=== PATIENT | male | born 1950 | race Caucasian/White ===

== ENCOUNTER 2016-08-28 13:56 | Outpatient (CLI) | payer MEDICARE | END 2016-08-28 13:57 | disposition home or self-care (01) | DX: Z79.01 Long term (current) use of anticoagulants (principal) ==

== ENCOUNTER 2016-09-06 08:00 | Outpatient (CLI) | payer MEDICARE | END 2016-09-06 08:01 | disposition home or self-care (01) | DX: Z79.01 Long term (current) use of anticoagulants (principal) ==

== ENCOUNTER 2016-09-13 13:46 | Outpatient (CLI) | payer MEDICARE | END 2016-09-13 13:47 | disposition home or self-care (01) | DX: Z79.01 Long term (current) use of anticoagulants (principal) ==

== ENCOUNTER 2016-10-11 13:47 | Outpatient (CLI) | payer MEDICARE | END 2016-10-11 13:48 | disposition home or self-care (01) | DX: Z79.01 Long term (current) use of anticoagulants (principal) ==

== ENCOUNTER 2016-10-22 14:11 | Emergency (ER) | payer OTHER, MEDICARE | END 2016-10-22 16:50 | disposition home or self-care (01) | DX: R42 Dizziness and giddiness (principal); N28.9 Disorder of kidney and ureter, unspecified; I10 Essential (primary) hypertension; E78.5 Hyperlipidemia, unspecified; E10.9 Type 1 diabetes mellitus without complications; Z79.4 Long term (current) use of insulin; I48.91 Unspecified atrial fibrillation; Z79.01 Long term (current) use of anticoagulants; G20 Parkinson's disease; Z86.73 Personal history of transient ischemic attack (TIA), and cerebral infarction without residual deficits ==

== ENCOUNTER 2016-11-07 13:34 | Outpatient (CLI) | payer MEDICARE, OTHER | END 2016-11-07 13:35 | disposition home or self-care (01) | DX: Z79.01 Long term (current) use of anticoagulants (principal) ==

== ENCOUNTER 2016-11-16 13:35 | Outpatient (CLI) | payer MEDICARE | END 2016-11-16 23:59 | DX: Z79.01 Long term (current) use of anticoagulants (principal) ==

== ENCOUNTER 2016-11-23 13:39 | Outpatient (CLI) | payer MEDICARE | END 2016-11-23 13:40 | disposition home or self-care (01) | DX: Z79.01 Long term (current) use of anticoagulants (principal) ==

== ENCOUNTER 2016-12-07 08:00 | Outpatient (CLI) | payer MEDICARE | END 2016-12-07 08:01 | disposition home or self-care (01) | LOC: LAB.N 08:00 | PROVIDERS: ATTEND Family Medicine | DX: Z79.01 Long term (current) use of anticoagulants (principal) | CPT/HCPCS: 85610 ==

== ENCOUNTER 2016-12-21 13:32 | Outpatient (CLI) | payer MEDICARE | END 2016-12-21 13:33 | disposition home or self-care (01) | LOC: LAB.N 13:32 | PROVIDERS: ATTEND Family Medicine | DX: Z79.01 Long term (current) use of anticoagulants (principal) | CPT/HCPCS: 85610 ==

== ENCOUNTER 2016-12-28 13:29 | Outpatient (CLI) | payer MEDICARE | END 2016-12-28 13:30 | disposition home or self-care (01) | DX: Z79.01 Long term (current) use of anticoagulants (principal) ==

== ENCOUNTER 2017-01-11 13:29 | Outpatient (CLI) | payer MEDICARE | END 2017-01-11 13:30 | disposition home or self-care (01) | LOC: LAB.N 13:29 | PROVIDERS: ATTEND Family Medicine | DX: Z79.01 Long term (current) use of anticoagulants (principal) | CPT/HCPCS: 85610 ==

== ENCOUNTER 2017-01-18 13:24 | Outpatient (CLI) | payer MEDICARE | END 2017-01-18 13:25 | disposition home or self-care (01) | LOC: LAB.N 13:24 | PROVIDERS: ATTEND Family Medicine | DX: Z79.01 Long term (current) use of anticoagulants (principal) | CPT/HCPCS: 85610 ==

== ENCOUNTER 2017-02-08 13:31 | Outpatient (CLI) | payer MEDICARE | END 2017-02-08 13:32 | disposition home or self-care (01) | LOC: LAB.N 13:31 | PROVIDERS: ATTEND Family Medicine | DX: Z79.01 Long term (current) use of anticoagulants (principal) | CPT/HCPCS: 85610 ==

== ENCOUNTER 2017-03-09 15:45 | Emergency (ER) | payer MEDICARE ==
[2017-03-09 16:42] LABS: BASOPHILS # (AUTO) 0.1 10^3/uL (0.0-0.1); BASOPHILS % (AUTO) 0.4 %; EOSINOPHILS % (AUTO) 0.1 %; HCT - HEMATOCRIT 44.6 % (42.0-52.0); HGB - HEMOGLOBIN 14.7 g/dL (14.0-18.0); LYMPHOCYTES # (AUTO) 1.1 10^3/uL (1.5-3.5); LYMPHOCYTES % (AUTO) 4.7 %; MEAN CORPUSCULAR HEMOGLOBIN 31.6 pg (27.0-31.0); MEAN CORPUSCULAR HGB CONC 32.9 g/dL (32.0-36.0); MEAN CORPUSCULAR VOLUME 96.1 fL (80.0-94.0); MONOCYTES % (AUTO) 8.6 %; NEUTROPHILS # (AUTO) 20.4 10^3/uL (1.5-6.6); NEUTROPHILS % (AUTO) 86.2 %; RED BLOOD COUNT 4.64 10^6/uL (4.70-6.10); UNCORRECTED WHITE BLOOD COUNT 23.7 x10^3/uL; WHITE BLOOD COUNT 23.7 x10^3/uL (4.8-10.8)
[2017-03-09 16:53] LABS: BILIRUBIN,TOTAL 1.2 mg/dL (0.2-1.0); CALCIUM 8.8 mg/dL (8.5-10.3); CREATININE 1.3 mg/dL (0.6-1.2); POTASSIUM 4.2 mmol/L (3.5-5.0)
[2017-03-09 17:39] LABS: PLATELET ESTIMATE, MANUAL NORMAL (130-450,000) (NORMAL); PLATELET MORPHOLOGY NORMAL APPEARANCE (NORMAL); WBC MORPHOLOGY (MULTIPLE) NORMAL APPEARANCE (NORMAL)
[2017-03-09] MEDS ORDERED: SODIUM CHLORIDE 0.9% 1,000 ML IV ONE (18:09)
--- NOTE | 2017-03-09 18:11 | ED Physician Documentation ---
PD HPI ABD PAIN - Stated complaint Stated Complaint: BACK PX/N/V - Chief complaint Chief Complaint: Abd Pain - History obtained from History obtained from: Patient - History of Present Illness Timing - onset: How many months ago (2) Timing - duration: Months (2) Timing - details: Gradual onset Pain level max: 6 Pain level now: 6 Quality: Aching, Pain Location: Other (L flank) Improved by: Laying still Worsened by: Moving Associated symptoms: Fever (subjective last night), Nausea, Dysuria, Other ( urinary frequency). No: Vomiting, Hematemesis, Diarrhea, Constipation, Melena, Hematuria Similar symptoms before: Has not had sx before Recently seen: Not recently seen Review of Systems Constitutional: denies: Chills, Myalgias Nose: denies: Rhinorrhea / runny nose, Congestion Throat: denies: Sore throat Cardiac: denies: Chest pain / pressure Respiratory: denies: Cough GI: denies: Hematemesis, Bloody / black stool Skin: denies: Rash Musculoskeletal: denies: Neck pain Neurologic: denies: Headache PD PAST MEDICAL HISTORY - Past Medical History Cardiovascular: Hypertension, Atrial fibrillation Respiratory: Sleep apnea Neuro: None, CVA Endocrine/Autoimmune: Type 1 diabetes GI: GERD : None HEENT: None Psych: None Musculoskeletal: Osteoarthritis, Gout Derm: None - Past Surgical History Past Surgical History: Yes General: Cholecystectomy Ortho: Spine surgery HEENT: Other - Present Medications Home Medications: Ambulatory Orders Medication Instructions Recorded Confirmed Metformin HCl [Glucophage Xr] 1,000 mg PO BID 10/02/13 03/09/17 Omeprazole 20 mg PO BID 10/02/13 03/09/17 Warfarin [Coumadin] 5 mg PO 1400 10/02/13 03/09/17 diltiaZEM CD [Cardizem Cd] 240 mg PO BID 10/02/13 03/09/17 Cholecalciferol (Vitamin D3) 1,000 unit PO BID 10/05/13 03/09/17 [Vitamin D-3] Lisinopril [Zestril] 10 mg PO DAILY 10/05/13 03/09/17 Triamcinolone 0.1% Oint [Kenalog 1 applic TD BID 12/03/15 03/09/17 0.1% Oint] Atorvastatin Calcium 40 mg PO DAILY 01/24/16 03/09/17 Carbidopa/Levodopa [Carbidopa-Levo 25 - 100 tab PO TID 01/24/16 03/09/17 ER 25-100 Tab] Docusate Sodium 250Mg Capsule 250 mg PO TID PRN 01/24/16 03/09/17 [Colace] Hydrocodone/Acetaminophen [Vicodin 1 each PO TID PRN 01/24/16 03/09/17 5-300 mg Tablet] Insulin Glargine,Hum.rec.anlog 30 unit SQ DAILY 01/24/16 03/09/17 [Lantus] Metoprolol Tartrate 12.5 mg PO BID 01/24/16 03/09/17 Meclizine [Antivert] 12.5 mg PO Q6H PRN #10 tablet 10/22/16 03/09/17 Allopurinol 1 tab PO BID 03/09/17 03/09/17 Ciprofloxacin HCl [Cipro] 500 mg PO BID #28 tablet 03/09/17 Fluticasone [Flonase] 1 spray TAWANDA DAILY 03/09/17 03/09/17 Loratadine [Claritin] 10 mg PO DAILY 03/09/17 03/09/17 Senna [Senokot] 2 tab PO DAILY 03/09/17 03/09/17 - Allergies Allergies/Adverse Reactions: Allergies Allergy/AdvReac Type Severity Reaction Status Date / Time No Known Drug Allergies Allergy Verified 03/09/17 18:19 - Social History Does the pt smoke?: No Smoking Status: Never smoker Does the pt drink ETOH?: No Does the pt have substance abuse?: No - Immunizations Immunizations are current?: Yes - POLST Patient has POLST: No PD ED PE NORMAL - Vitals Vital signs reviewed: Yes - General General: Alert and oriented X 3, No acute distress, Other (obese male) - HEENT HEENT: PERRL, Moist mucous membranes - Neck Neck: Supple, no meningeal sign - Cardiac Cardiac: RRR, Strong equal pulses - Respiratory Respiratory: No respiratory distress, Clear bilaterally - Abdomen Abdomen: Soft, Non tender, Non distended - Back Back: No CVA TTP, No spinal TTP - Derm Derm: Warm and dry - Extremities Extremities: No calf tenderness / cord - Neuro Neuro: Alert and oriented X 3 - Psych Psych: Normal mood, Normal affect Results - Vitals Vitals: Vital Signs - 24 hr 03/09/17 03/09/17 03/09/17 16:00 21:51 22:22 Temperature 36.1 C L 37.1 C 37.1 C Heart Rate 95 99 104 H Respiratory 20 16 Rate Blood Pressure 120/79 137/89 H O2 Saturation 98 98 Oxygen O2 Source Room air - Labs Labs: Laboratory Tests 03/09/17 03/09/17 03/09/17 16:36 16:36 16:36 WBC 23.7 H RBC 4.64 L Hgb 14.7 Hct 44.6 MCV 96.1 H MCH 31.6 H MCHC 32.9 RDW 14.0 Plt Count 174 MPV 10.0 Neut # 20.4 H Lymph # 1.1 L [place] # 2.0 H Eos # 0.0 Baso # 0.1 Absolute Nucleated RBC 0.00 Nucleated RBCs 0.0 Manual Slide Review Indicated WBC Morphology NORMAL APPEARANCE Platelet Estimate NORMAL (130-450,000) Platelet Morphology NORMAL APPEARANCE RBC Morph Micro Appear NORMAL APPEARANCE PT 26.3 H INR 2.3 H Sodium 136 Potassium 4.2 Chloride 105 Carbon Dioxide 21 Anion Gap 10.0 BUN 18 Creatinine 1.3 H Estimated GFR (MDRD) 55 L Glucose 178 H POC Whole Bld Glucose Calcium 8.8 Total Bilirubin 1.2 H AST 12 ALT 10 Alkaline Phosphatase 65 Total Protein 7.0 Albumin 3.5 Globulin 3.5 Albumin/Globulin Ratio 1.0 Lipase 13 L Urine Color Urine Clarity Urine pH Ur Specific [place] Urine Protein Urine Glucose (UA) Urine Ketones Urine Occult Blood Urine Nitrite Urine Bilirubin Urine Urobilinogen Ur Leukocyte Esterase Urine RBC Urine WBC Ur Squamous Epith Cells Urine Bacteria Urine Casts Ur Microscopic Review Urine Culture Comments 03/09/17 03/09/17 19:43 21:39 WBC RBC Hgb Hct MCV MCH MCHC RDW Plt Count MPV Neut # Lymph # [place] # Eos # Baso # Absolute Nucleated RBC Nucleated RBCs Manual Slide Review WBC Morphology Platelet Estimate Platelet Morphology RBC Morph Micro Appear PT INR Sodium Potassium Chloride Carbon Dioxide Anion Gap BUN Creatinine Estimated GFR (MDRD) Glucose POC Whole Bld Glucose 157 H Calcium Total Bilirubin AST ALT Alkaline Phosphatase Total Protein Albumin Globulin Albumin/Globulin Ratio Lipase Urine Color DARK YELLOW Urine Clarity CLEAR Urine pH 5.5 Ur Specific [place] >=1.030 H Urine Protein >=300 Urine Glucose (UA) NEGATIVE Urine Ketones TRACE Urine Occult Blood SMALL H Urine Nitrite NEGATIVE Urine Bilirubin MODERATE H Urine Urobilinogen 0.2 (NORMAL) Ur Leukocyte Esterase NEGATIVE Urine RBC 0-5 Urine WBC >25 H Ur Squamous Epith Cells MANY Squamous H Urine Bacteria Moderate H Urine Casts 3-5 WBC Casts Ur Microscopic Review INDICATED Urine Culture Comments NOT INDICATED - Rads (name of study) CT abd/pelvis Radiology: Prelim report reviewed, EMP read contemporaneously, See rad report ( No urinary tract calculi are seen. No hydronephrosis. Enlarged prostate. . Increased density in the bladder, could represent contrast versus blood. The bladder is decompressed. . Otherwise, no acute findings. See above. ) PD MEDICAL DECISION MAKING - ED course Complexity details: reviewed results, re-evaluated patient, considered differential, d/w patient ED course: Patient is a 66-year-old male who presents to the emergency department with what appears to be pyelonephritis. No fevers here, but does have an elevated white blood cell count. Given a dose of IV Rocephin and will place on ciprofloxacin for home. INR is at 2.3. Patient was counseled regarding the black box warnings and side effects of ciprofloxacin including neurological effects and possible tendon rupture. As there are not good alternative medications at this time, will continue to use ciprofloxacin for home. Patient accepts these risks. Patient counseled regarding signs and symptoms for which I believe and urgent re-evaluation would be necessary. Patient with good understanding of and agreement to plan and is comfortable going home at this time This document was made in part using voice recognition software. While efforts are made to proofread this document, sound alike and grammatical errors may occur. Tolerating p.o. without difficulty here. No fever. Departure - Departure Disposition: 01 Home, Self Care Clinical Impression: Pyelonephritis Condition: Good Instructions: ED UTI Pyelonephritis Male Follow-Up: your,doctor in 3 days [Other] Prescriptions: Ciprofloxacin HCl [Cipro] 500 mg PO BID #28 tablet Comments: Return if you worsen. Take all antibiotics until gone. You need to have your INR rechecked within 3 days with your doctor as the antibiotic can effect your warfarin levels. Discharge Date/Time: 03/09/17 22:15
[2017-03-09 20:18] LABS: PH,URINE 5.5 PH (5.0-7.5)
[2017-03-09 20:27] LABS: UA w/ MICROSCOPIC CHARGE YES
[2017-03-09 20:28] LABS: BILIRUBIN,URINE MODERATE (NEGATIVE)
[2017-03-09] MEDS ORDERED: IOPAMIDOL-300 100 ML VIAL IVP ONE (20:35)
[2017-03-09 20:38] LABS: UR CULTURE IF IND NOT INDICATED; WBC,URINE >25 /HPF (0-3)
--- NOTE | 2017-03-09 21:04 | CT Preliminary Report ---
Exam: CT Abdomen/Pelvis W/ IMPRESSION: 1. No urinary tract calculi are seen. No hydronephrosis. 2. Enlarged prostate. 3. Increased density in the bladder, could represent contrast versus blood. The bladder is decompress ed. 4. Otherwise, no acute findings. See above. [facility] SITE ID: [id number]
[2017-03-09] MEDS ORDERED: cefTRIAXone 1 GM VIAL IM STA (21:06)
--- NOTE | 2017-03-09 21:07 | CT Report ---
EXAM: CT ABDOMEN AND PELVIS EXAM DATE: 03/09/2017 08:39 PM. CLINICAL HISTORY: Left flank pain, fever, dysuria. COMPARISONS: CT abdomen and pelvis 04/18/2014. TECHNIQUE: Routine helical CT imaging was performed through the abdomen and pelvis. IV contrast: 100 mL Isovue-300. Enteric contrast: No. Reconstructions: Coronal and sagittal. In accordance with CT protocol optimization, one or more of the following dose reduction techniques w ere utilized for this exam: automated exposure control, adjustment of mA and/or KV based on patient s ize, or use of iterative reconstructive technique. FINDINGS: Lung Bases: No acute findings Liver: Normal. No masses. Gallbladder/Bile Ducts: Status post cholecystectomy. No bile duct dilatation. Spleen: Normal. Pancreas: Normal. Adrenal Glands: Normal. Kidneys: No hydronephrosis. Low density mass upper pole right kidney 1.4 cm, suspect a renal cyst, Ho unsfield units of 10. Exophytic low-density mass seen medially off the upper pole left kidney with Ho unsfield units of 4 most suggestive for a renal cyst, measures 2.1 cm, increased compared to the prio r. A few tiny low densities seen in both kidneys, nonspecific. No renal calculi are seen. No ureteral calculi or hydroureter. Peritoneal Cavity/Bowel: Right side of the abdomen not completely imaged due to artifact caused by th e skin contacting the gantry. The right side of the colon is not completely imaged. Mild colonic dive rticulosis of the right side of the colon and a few diverticula on the left side. No evidence for acu te diverticulitis. No evidence for bowel obstruction. No free fluid or free air. Pelvic Organs: Enlarged prostate measuring 5.4 cm. The bladder is decompressed. There is increased de nsity in the bladder, could represent contrast versus blood. Vasculature: No acute findings. Marked Calcification of the splenic artery. Bones: No acute findings IMPRESSION: 1. No urinary tract calculi are seen. No hydronephrosis. 2. Enlarged prostate. 3. Increased density in the bladder, could represent contrast versus blood. The bladder is decompress ed. 4. Otherwise, no acute findings. See above. [facility] Referring Provider Line: [phone] SITE ID: [id number]
[2017-03-09 21:28] LABS: INR 2.3 (0.8-1.2); PT - PROTHROMBIN TIME 26.3 secs (9.9-12.6)
[2017-03-09] MEDS ORDERED: cefTRIAXone 1 GM VIAL IVP STA (21:38)
[2017-03-09] MEDS ORDERED: cefTRIAXone 1 GM VIAL ONE (21:40)
[2017-03-09 21:51] VITALS: BP 137/89
== END 2017-03-09 22:15 | disposition home or self-care (01) ==
LOC: ED 15:45
DX: N12 Tubulo-interstitial nephritis, not specified as acute or chronic (principal); N40.0 Benign prostatic hyperplasia without lower urinary tract symptoms; I10 Essential (primary) hypertension; I48.91 Unspecified atrial fibrillation; Z79.01 Long term (current) use of anticoagulants; G47.30 Sleep apnea, unspecified; E10.9 Type 1 diabetes mellitus without complications; Z79.4 Long term (current) use of insulin; Z79.84 Long term (current) use of oral hypoglycemic drugs; K21.9 Gastro-esophageal reflux disease without esophagitis; Z86.73 Personal history of transient ischemic attack (TIA), and cerebral infarction without residual deficits
CPT/HCPCS: 36415; 74177; 80053; 81001; 83690; 85025; 85610; 96361; 96374; 99283; 99284; Q9967; 81003; 87086

== ENCOUNTER 2017-03-12 13:42 | Outpatient (CLI) | payer MEDICARE | END 2017-03-12 13:43 | disposition home or self-care (01) | LOC: LAB.N 13:42 | PROVIDERS: ATTEND Family Medicine | DX: Z79.01 Long term (current) use of anticoagulants (principal) | CPT/HCPCS: 85610 ==

== ENCOUNTER 2017-03-19 13:35 | Outpatient (CLI) | payer MEDICARE | END 2017-03-19 13:36 | disposition home or self-care (01) | LOC: LAB.N 13:35 | PROVIDERS: ATTEND Family Medicine | DX: Z79.01 Long term (current) use of anticoagulants (principal) | CPT/HCPCS: 85610 ==

== ENCOUNTER 2017-03-21 08:00 | Outpatient (CLI) | payer MEDICARE ==
[2017-03-21 19:13] LABS: CALCIUM 8.3 mg/dL (8.5-10.3); CREATININE 1.5 mg/dL (0.6-1.2); POTASSIUM 4.7 mmol/L (3.5-5.0)
== END 2017-03-21 08:01 | disposition home or self-care (01) ==
LOC: LAB.N 08:00
PROVIDERS: ATTEND Family Medicine
DX: E11.9 Type 2 diabetes mellitus without complications (principal); Z79.01 Long term (current) use of anticoagulants
CPT/HCPCS: 36415; 80048; 85610

== ENCOUNTER 2017-03-26 13:14 | Outpatient (CLI) | payer MEDICARE | END 2017-03-26 13:15 | disposition home or self-care (01) | LOC: LAB.N 13:14 | PROVIDERS: ATTEND Family Medicine | DX: Z79.01 Long term (current) use of anticoagulants (principal) | CPT/HCPCS: 85610 ==

== ENCOUNTER 2017-04-03 08:47 | Outpatient (CLI) | payer MEDICARE ==
[2017-04-03] MEDS ORDERED: BARIUM SULFATE 148 GM POWDER PO ONE (10:04)
[2017-04-03] MEDS ORDERED: BARIUM SULFATE 454 GM TUBE PO ONE (10:04)
--- NOTE | 2017-04-03 10:16 | XRAY Report ---
MODIFIED BARIUM SWALLOW: 04/03/2017 CLINICAL INDICATION: Dysphagia. FINDINGS: Various consistencies of barium were prepared and administered in conjunction with Speech Pathology. There was no evidence of penetration or aspiration with any administered consistency. Pl ease also refer to full report from Speech Pathology. IMPRESSION: NO EVIDENCE OF PENETRATION OR ASPIRATION. FLUOROSCOPY TIME: 47 seconds; 1 spot image obtained (cinefluoroscopy recorded). 10:9:58 JOB #: [id number] EXT JOB #:[id number]
== END 2017-04-03 08:48 | disposition home or self-care (01) ==
LOC: DI 08:47
PROVIDERS: ATTEND Psychiatry & Neurology Neurology
DX: R13.10 Dysphagia, unspecified (principal)
CPT/HCPCS: 74230; 92611; G8996; G8997; G8998

== ENCOUNTER 2017-04-10 08:00 | Outpatient (CLI) | payer MEDICARE | END 2017-04-10 08:01 | disposition home or self-care (01) | LOC: LAB.N 08:00 | PROVIDERS: ATTEND Family Medicine | DX: Z79.01 Long term (current) use of anticoagulants (principal) | CPT/HCPCS: 85610 ==

== ENCOUNTER 2017-04-18 13:11 | Outpatient (CLI) | payer MEDICARE | END 2017-04-18 13:12 | disposition home or self-care (01) | LOC: LAB.N 13:11 | PROVIDERS: ATTEND Family Medicine | DX: Z79.01 Long term (current) use of anticoagulants (principal) | CPT/HCPCS: 85610 ==

== ENCOUNTER 2017-07-04 13:19 | Outpatient (CLI) | payer OTHER | END 2017-07-04 13:20 | disposition home or self-care (01) | LOC: LAB.N 13:19 | PROVIDERS: ATTEND Family Medicine | DX: Z79.01 Long term (current) use of anticoagulants (principal) | CPT/HCPCS: 85610 ==

== ENCOUNTER 2017-07-18 13:08 | Outpatient (CLI) | payer MEDICARE, OTHER | END 2017-07-18 13:09 | disposition home or self-care (01) | LOC: LAB.N 13:08 | PROVIDERS: ATTEND Family Medicine | DX: Z79.01 Long term (current) use of anticoagulants (principal) | CPT/HCPCS: 85610 ==

== ENCOUNTER 2017-08-01 13:04 | Outpatient (CLI) | payer OTHER | END 2017-08-01 13:05 | disposition home or self-care (01) | LOC: LAB.N 13:04 | PROVIDERS: ATTEND Family Medicine | DX: Z79.01 Long term (current) use of anticoagulants (principal) | CPT/HCPCS: 85610 ==

== ENCOUNTER 2017-08-15 08:00 | Outpatient (CLI) | payer OTHER | END 2017-08-15 08:01 | disposition home or self-care (01) | LOC: LAB.N 08:00 | PROVIDERS: ATTEND Family Medicine | DX: Z79.01 Long term (current) use of anticoagulants (principal) | CPT/HCPCS: 85610 ==

== ENCOUNTER 2017-08-29 08:00 | Outpatient (CLI) | payer OTHER | END 2017-08-29 08:01 | disposition home or self-care (01) | LOC: LAB.N 08:00 | PROVIDERS: ATTEND Family Medicine | DX: Z79.01 Long term (current) use of anticoagulants (principal) | CPT/HCPCS: 85610 ==

== ENCOUNTER 2017-09-11 08:00 | Outpatient (CLI) | payer OTHER | END 2017-09-11 08:01 | disposition home or self-care (01) | LOC: LAB.N 08:00 | PROVIDERS: ATTEND Family Medicine | DX: Z79.01 Long term (current) use of anticoagulants (principal) | CPT/HCPCS: 85610 ==

== ENCOUNTER 2017-09-26 08:00 | Outpatient (CLI) | payer OTHER | END 2017-09-26 23:59 | disposition home or self-care (01) | LOC: LAB.N 08:00 | PROVIDERS: ATTEND Family Medicine | DX: Z79.01 Long term (current) use of anticoagulants (principal) | CPT/HCPCS: 85610 ==

== ENCOUNTER 2017-10-10 12:57 | Outpatient (CLI) | payer MEDICARE, OTHER | END 2017-10-10 12:58 | disposition home or self-care (01) | LOC: LAB.N 12:57 | PROVIDERS: ATTEND Family Medicine | DX: Z79.01 Long term (current) use of anticoagulants (principal) | CPT/HCPCS: 85610 ==

== ENCOUNTER 2017-11-08 19:11 | Outpatient (CLI) | payer MEDICARE, OTHER | END 2017-11-08 19:12 | disposition critical access hospital (66) | LOC: EMS 19:11 | PROVIDERS: ATTEND Surgery | DX: S09.90XA Unspecified injury of head, initial encounter (principal); W20.8XXA Other cause of strike by thrown, projected or falling object, initial encounter; W18.39XA Other fall on same level, initial encounter; Y92.038 Other place in apartment as the place of occurrence of the external cause; Z79.01 Long term (current) use of anticoagulants | CPT/HCPCS: A0425; A0429 ==

== ENCOUNTER 2017-11-08 19:34 | Emergency (ER) | payer MEDICARE, OTHER ==
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
[2017-11-08 19:59] LABS: BASOPHILS # (AUTO) 0.1 10^3/uL (0.0-0.1); BASOPHILS % (AUTO) 0.8 %; EOSINOPHILS # (AUTO) 0.1 10^3/uL (0.0-0.7); EOSINOPHILS % (AUTO) 1.1 %; HGB - HEMOGLOBIN 13.8 g/dL (14.0-18.0); LYMPHOCYTES # (AUTO) 1.3 10^3/uL (1.5-3.5); LYMPHOCYTES % (AUTO) 17.1 %; MEAN CORPUSCULAR HEMOGLOBIN 29.9 pg (27.0-31.0); MEAN CORPUSCULAR HGB CONC 32.7 g/dL (32.0-36.0); MEAN CORPUSCULAR VOLUME 91.4 fL (80.0-94.0); MEAN PLATELET VOLUME 9.9 fL (7.4-11.4); MONOCYTES # (AUTO) 0.6 10^3/uL (0.0-1.0); MONOCYTES % (AUTO) 7.9 %; NEUTROPHILS # (AUTO) 5.7 10^3/uL (1.5-6.6); NEUTROPHILS % (AUTO) 73.1 %; PLT - PLATELET COUNT 206 10^3/uL (130-450); RED BLOOD COUNT 4.63 10^6/uL (4.70-6.10); RED CELL DISTRIBUTION WIDTH 15.4 % (12.0-15.0); WHITE BLOOD COUNT 7.9 x10^3/uL (4.8-10.8)
[2017-11-08 20:02] LABS: INR 2.3 (0.8-1.2); PT - PROTHROMBIN TIME 25.5 secs (9.9-12.6)
[2017-11-08 20:08] LABS: ALBUMIN 3.5 g/dL (3.2-5.5); ALBUMIN/GLOBULIN RATIO 1.1 (1.0-2.2); ALKALINE PHOSPHATASE 65 IU/L (42-121); ALT ALANINE AMINOTRANSFERASE < 10 IU/L (10-60); AST ASPARTATE AMINOTRANSFERASE 16 IU/L (10-42); BILIRUBIN,TOTAL 0.5 mg/dL (0.2-1.0); BUN - BLOOD UREA NITROGEN 19 mg/dL (6-20); CALCIUM 8.5 mg/dL (8.5-10.3); CARBON DIOXIDE - CO2 23 mmol/L (21-32); CHLORIDE 104 mmol/L (101-111); CREATININE 1.3 mg/dL (0.6-1.2); GFR - MDRD 55 (>89); GLUCOSE 204 mg/dL (70-100); LIPASE 32 U/L (22-51); SODIUM 136 mmol/L (135-145); TOTAL PROTEIN 6.8 g/dL (6.7-8.2)
--- NOTE | 2017-11-08 20:25 | CT Preliminary Report ---
Exam: CT HEAD W/O IMPRESSION: Generalized age-related cortical atrophic changes without evidence of acute intracranial abnormality. [facility] SITE ID: [id number]
--- NOTE | 2017-11-08 20:32 | CT Report ---
EXAM: CT HEAD EXAM DATE: 11/08/2017 08:11 PM. CLINICAL HISTORY: Fall with head trauma. Pain. Patient is on Coumadin. COMPARISON: CT paranasal sinuses 04/10/2016. No prior head CT. TECHNIQUE: Multiaxial CT images were obtained from the foramen magnum to the vertex. Reformats: Coron al. IV contrast: None. In accordance with CT protocol optimization, one or more of the following dose reduction techniques w ere utilized for this exam: automated exposure control, adjustment of mA and/or KV based on patient s ize, or use of iterative reconstructive technique. FINDINGS: Parenchyma: No intraparenchymal hemorrhage. No evidence of mass, midline shift, or CT findings of acu te infarction. Guillory-white differentiation is distinct. Diffuse chronic microangiopathic white matter changes are evident. Extraaxial Spaces: Normal for age. No subdural or epidural collections identified. Ventricles: The ventricles and cortical sulci are enlarged, consistent with age-related tissue loss. Sinuses and orbits: Stable persistent or recurrent small amount of fluid left maxillary sinus. The re st of the paranasal sinuses, middle ears and mastoid air cells are clear. Bones: No evidence of fracture or calvarial defect. Other: None. IMPRESSION: Generalized age-related cortical atrophic changes without evidence of acute intracranial abnormality. [facility] Referring Provider Line: [phone] SITE ID: [id number]
[2017-11-08 20:45] VITALS: BP 150/96
[2017-11-08] MEDS ORDERED: ACETAMINOPHEN 325 MG TABLET PO STA (20:51)
--- NOTE | 2017-11-08 20:53 | XRAY Preliminary Report ---
Exam: XR HIPS 2V BILAT IMPRESSION: Moderate right and mild to moderate left hip chronic degenerative disease with joint spac e narrowing. No acute fracture. [facility] SITE ID: [id number]
--- NOTE | 2017-11-08 20:53 | XRAY Report ---
EXAM: BILATERAL HIP RADIOGRAPHY EXAM DATE: 11/08/2017 08:31 PM. CLINICAL HISTORY: Back pain, fall. COMPARISON: CT pelvis 03/09/2017. TECHNIQUE: 2 views each. FINDINGS: Bones: There is a moderate degree of sclerosis of the right acetabulum. There is [id number] t acetabular spurring and sclerosis. No acute pelvic fracture. Right Hip: There is moderate joint space narrowing and spurring at the hip joint. No dislocation. Left Hip: There is mild joint space narrowing and spurring of the left hip joint. No dislocation. Soft Tissues: No dilated bowel loops. IMPRESSION: Moderate right and mild to moderate left hip chronic degenerative disease with joint spac e narrowing. No acute fracture. [facility] Referring Provider Line: [phone] SITE ID: [id number]
--- NOTE | 2017-11-13 12:50 | ED Physician Documentation ---
ED Addendum - Addendum Addendum: 11/13/17 12:49 Note made that documentation of past medical history is in error, he is a type II diabetic.
== END 2017-11-08 21:25 | disposition home or self-care (01) ==
LOC: ED 19:34
DX: S06.0X0A Concussion without loss of consciousness, initial encounter (principal); S20.219A Contusion of unspecified front wall of thorax, initial encounter; S19.9XXA Unspecified injury of neck, initial encounter; W22.8XXA Striking against or struck by other objects, initial encounter; E10.9 Type 1 diabetes mellitus without complications; I10 Essential (primary) hypertension; I48.91 Unspecified atrial fibrillation; Z86.73 Personal history of transient ischemic attack (TIA), and cerebral infarction without residual deficits; Z79.01 Long term (current) use of anticoagulants
CPT/HCPCS: 36415; 70450; 73521; 80053; 83690; 85025; 85610; 99284; A9270

== ENCOUNTER 2017-11-22 14:09 | Outpatient (CLI) | payer MEDICARE, OTHER | END 2017-11-22 14:10 | disposition home or self-care (01) | LOC: LAB.N 14:09 | PROVIDERS: ATTEND Family Medicine | DX: Z79.01 Long term (current) use of anticoagulants (principal) | CPT/HCPCS: 85610 ==

== ENCOUNTER 2017-12-06 13:14 | Outpatient (CLI) | payer MEDICARE, OTHER | END 2017-12-06 13:15 | disposition home or self-care (01) | LOC: LAB.N 13:14 | PROVIDERS: ATTEND Family Medicine | DX: Z79.01 Long term (current) use of anticoagulants (principal) | CPT/HCPCS: 85610 ==

== ENCOUNTER 2017-12-13 13:44 | Outpatient (CLI) | payer MEDICARE, OTHER | END 2017-12-13 13:45 | disposition home or self-care (01) | LOC: LAB.N 13:44 | PROVIDERS: ATTEND Family Medicine | DX: Z79.01 Long term (current) use of anticoagulants (principal) | CPT/HCPCS: 85610 ==

== ENCOUNTER 2017-12-20 03:25 | Outpatient (CLI) | payer MEDICARE, OTHER | END 2017-12-20 03:26 | disposition critical access hospital (66) | LOC: EMS 03:25 | PROVIDERS: ATTEND Surgery | DX: M79.89 Other specified soft tissue disorders (principal); M79.622 Pain in left upper arm | CPT/HCPCS: A0425; A0429 ==

== ENCOUNTER 2017-12-20 03:43 | Emergency (ER) | payer MEDICARE, OTHER ==
[2017-12-20 03:56] VITALS: BP 143/98
[2017-12-20 04:14] LABS: INR 3.6 (0.8-1.2)
--- NOTE | 2017-12-20 04:45 | XRAY Report ---
EXAM: LEFT SHOULDER RADIOGRAPHY EXAM DATE: 12/20/2017 04:30 AM. CLINICAL HISTORY: Shoulder and arm pain and swelling. COMPARISON: None. TECHNIQUE: 3 views. FINDINGS: Bones: Subchondral degenerative cyst in the greater trochanter. No fracture or bone lesion. Joints: The glenohumeral and acromioclavicular joints are normal. Soft tissues: The visualized hemithorax is unremarkable. No soft tissue swelling. IMPRESSION: Negative left shoulder radiography. [facility] Referring Provider Line: [phone] SITE ID: [id number]
--- NOTE | 2017-12-20 04:49 | ED Physician Documentation ---
PD HPI UPPER EXT INJURY - Stated complaint Stated Complaint: LEFT BICEP PAIN AND SWELLING - Chief complaint Chief Complaint: Ext Problem - History obtained from History obtained from: Patient - History of Present Illness Location: Left, Shoulder, Arm Type of injury: Fall Where injury occurred: Home Timing - onset: How many days ago (4) Timing - details: Gradual onset, Still present Improved by: Rest, Immobilization Worsened by: Moving, Palpating Similar symptoms before: No diagnosis Recently seen: Not recently seen - Additonal information Additional information: Patient is a 67 year old male on coumadin, who is presenting to the emergency department for arm pain and swelling. patient reported that he hurt his shoulders a few days prior and now he has swelling in his arm. patient states that he thinks he needs an x-ray so he called ems to bring him in for evaluation. Review of Systems Ten Systems: 10 systems reviewed and negative Musculoskeletal: reports: Extremity pain, Extremity swelling PD PAST MEDICAL HISTORY - Past Medical History Past Medical History: Yes Cardiovascular: Hypertension, Atrial fibrillation Respiratory: Sleep apnea Endocrine/Autoimmune: Type 1 diabetes GI: GERD : None HEENT: None Psych: None Musculoskeletal: Osteoarthritis, Gout Derm: None - Past Surgical History Past Surgical History: Yes General: Cholecystectomy Ortho: Spine surgery HEENT: Other - Present Medications Home Medications: Ambulatory Orders Medication Instructions Recorded Confirmed Metformin HCl [Glucophage Xr] 1,000 mg PO BID 10/02/13 03/09/17 Omeprazole 20 mg PO BID 10/02/13 03/09/17 Warfarin [Coumadin] 5 mg PO 1400 10/02/13 03/09/17 diltiaZEM CD [Cardizem Cd] 240 mg PO BID 10/02/13 03/09/17 Cholecalciferol (Vitamin D3) 1,000 unit PO BID 10/05/13 03/09/17 [Vitamin D-3] Lisinopril [Zestril] 10 mg PO DAILY 10/05/13 03/09/17 Triamcinolone 0.1% Oint [Kenalog 1 applic TD BID 12/03/15 03/09/17 0.1% Oint] Atorvastatin Calcium 40 mg PO DAILY 01/24/16 03/09/17 Carbidopa/Levodopa [Carbidopa-Levo 25 - 100 tab PO TID 01/24/16 03/09/17 ER 25-100 Tab] Docusate Sodium 250Mg Capsule 250 mg PO TID PRN 01/24/16 03/09/17 [Colace] Insulin Glargine,Hum.rec.anlog 30 unit SQ DAILY 01/24/16 03/09/17 [Lantus] Metoprolol Tartrate 12.5 mg PO BID 01/24/16 03/09/17 Meclizine [Antivert] 12.5 mg PO Q6H PRN #10 tablet 10/22/16 03/09/17 Allopurinol 1 tab PO BID 03/09/17 03/09/17 Ciprofloxacin HCl [Cipro] 500 mg PO BID #28 tablet 03/09/17 Fluticasone [Flonase] 1 spray TAWANDA DAILY 03/09/17 03/09/17 Loratadine [Claritin] 10 mg PO DAILY 03/09/17 03/09/17 Senna [Senokot] 2 tab PO DAILY 03/09/17 03/09/17 - Allergies Allergies/Adverse Reactions: Allergies Allergy/AdvReac Type Severity Reaction Status Date / Time No Known Drug Allergies Allergy Verified 11/08/17 19:41 - Social History Does the pt smoke?: No Smoking Status: Never smoker Does the pt drink ETOH?: No Does the pt have substance abuse?: No - Immunizations Immunizations are current?: Yes - POLST Patient has POLST: No PD ED PE NORMAL - Vitals Vital signs reviewed: Yes - General General: Alert and oriented X 3, No acute distress - HEENT HEENT: Atraumatic - Cardiac Cardiac: RRR - Respiratory Respiratory: No respiratory distress - Abdomen Abdomen: Non distended - Neuro Neuro: Alert and oriented X 3 PD ED PE EXPANDED - Extremities Extremities: Left shoulder (mild tenderness to palpation of left shoulder), Left arm (ecchymosis and swelling of left upper extremity), Motor intact, Vascular intact, Tendon intact Results - Vitals Vitals: Vital Signs - 24 hr 12/20/17 03:50 Temperature 36.7 C Heart Rate 98 Respiratory 18 Rate Blood Pressure 143/98 H O2 Saturation 98 Oxygen O2 Source Room air - Labs Labs: Laboratory Tests 12/20/17 04:00 PT 39.0 H INR 3.6 H - Rads (name of study) shoulder x-ray Radiology: Final report received (no acute fracture or dislocation) PD MEDICAL DECISION MAKING - ED course Complexity details: reviewed old records, reviewed results, re-evaluated patient , considered differential, d/w patient ED course: patient was seen and examined at bedside. imaging was ordered as well as patient's INR level. when patient returned the results were reviewed. Patient had no acute fracture or dislocation. patient's INR was only mildly elevated. Patient required no further inpatient work up and was stable for discharge with outpatient follow up. Departure - Departure Disposition: 01 Home, Self Care Clinical Impression: Hematoma of arm Condition: Good Instructions: ED Hematoma Follow-Up: primary,care provider [Other] - As Needed Comments: Your diagnostics today were within normal limits. there is no acute fracture or dislocation. your INR was 3.6 so just slightly elevated. You should apply warm compresses or heat pads to your hematoma. You should follow up with your doctor today for further evaluation and care. Discharge Date/Time: 12/20/17 04:55
== END 2017-12-20 04:55 | disposition home or self-care (01) ==
LOC: EDUNIT# → ED 03:43
DX: S40.022A Contusion of left upper arm, initial encounter (principal); W18.39XA Other fall on same level, initial encounter; Y92.009 Unspecified place in unspecified non-institutional (private) residence as the place of occurrence of the external cause; I10 Essential (primary) hypertension; I48.91 Unspecified atrial fibrillation; G47.30 Sleep apnea, unspecified; E10.9 Type 1 diabetes mellitus without complications; K21.9 Gastro-esophageal reflux disease without esophagitis; M19.90 Unspecified osteoarthritis, unspecified site; M10.9 Gout, unspecified; Z79.4 Long term (current) use of insulin; Z79.01 Long term (current) use of anticoagulants
CPT/HCPCS: 85610; 99283

== ENCOUNTER 2017-12-21 13:07 | Outpatient (CLI) | payer MEDICARE, OTHER | END 2017-12-21 13:08 | disposition home or self-care (01) | LOC: LAB.N 13:07 | PROVIDERS: ATTEND Family Medicine | DX: Z79.01 Long term (current) use of anticoagulants (principal) | CPT/HCPCS: 85610 ==

== ENCOUNTER 2017-12-21 14:42 | Emergency (ER) | payer MEDICARE, OTHER ==
[2017-12-21 14:52] VITALS: BP 143/98
--- NOTE | 2017-12-21 15:10 | ED Physician Documentation ---
PD HPI UPPER EXT INJURY - Stated complaint Stated Complaint: BRUISE L ARM - Chief complaint Chief Complaint: Ext Problem - History obtained from History obtained from: Patient - History of Present Illness Location: Left, Arm Type of injury: Other (He was lifting groceries and felt a tear or pain suddenly in the left mid biceps a week or so ago. He was having swelling and pain in that area and then started with bruising in the upper arm yesterday. He was seen yesterday in the ER for this and diagnosed with a biceps strain and muscle injury. Today he noticed some bruising show up on the elbow and upper forearm and was concerned about further bleeding or injury.) Where injury occurred: Home Contributing factors: Anticoagulated Review of Systems Neurologic: denies: Focal weakness, Numbness PD PAST MEDICAL HISTORY - Past Medical History Past Medical History: Yes Cardiovascular: Hypertension, Atrial fibrillation Respiratory: Sleep apnea Endocrine/Autoimmune: Type 1 diabetes GI: GERD : None HEENT: None Psych: None Musculoskeletal: Osteoarthritis, Gout Derm: None - Past Surgical History Past Surgical History: Yes General: Cholecystectomy Ortho: Spine surgery HEENT: Other - Present Medications Home Medications: Ambulatory Orders Medication Instructions Recorded Confirmed Metformin HCl [Glucophage Xr] 1,000 mg PO BID 10/02/13 03/09/17 Omeprazole 20 mg PO BID 10/02/13 03/09/17 Warfarin [Coumadin] 5 mg PO 1400 10/02/13 03/09/17 diltiaZEM CD [Cardizem Cd] 240 mg PO BID 10/02/13 03/09/17 Cholecalciferol (Vitamin D3) 1,000 unit PO BID 10/05/13 03/09/17 [Vitamin D-3] Lisinopril [Zestril] 10 mg PO DAILY 10/05/13 03/09/17 Triamcinolone 0.1% Oint [Kenalog 1 applic TD BID 12/03/15 03/09/17 0.1% Oint] Atorvastatin Calcium 40 mg PO DAILY 01/24/16 03/09/17 Carbidopa/Levodopa [Carbidopa-Levo 25 - 100 tab PO TID 01/24/16 03/09/17 ER 25-100 Tab] Docusate Sodium 250Mg Capsule 250 mg PO TID PRN 01/24/16 03/09/17 [Colace] Insulin Glargine,Hum.rec.anlog 30 unit SQ DAILY 01/24/16 03/09/17 [Lantus] Metoprolol Tartrate 12.5 mg PO BID 01/24/16 03/09/17 Meclizine [Antivert] 12.5 mg PO Q6H PRN #10 tablet 10/22/16 03/09/17 Allopurinol 1 tab PO BID 03/09/17 03/09/17 Ciprofloxacin HCl [Cipro] 500 mg PO BID #28 tablet 03/09/17 Fluticasone [Flonase] 1 spray TAWANDA DAILY 03/09/17 03/09/17 Loratadine [Claritin] 10 mg PO DAILY 03/09/17 03/09/17 Senna [Senokot] 2 tab PO DAILY 03/09/17 03/09/17 - Allergies Allergies/Adverse Reactions: Allergies Allergy/AdvReac Type Severity Reaction Status Date / Time No Known Drug Allergies Allergy Verified 11/08/17 19:41 - Social History Does the pt smoke?: No Smoking Status: Never smoker Does the pt drink ETOH?: No Does the pt have substance abuse?: No - Immunizations Immunizations are current?: Yes - POLST Patient has POLST: No PD ED PE NORMAL - Vitals Vital signs reviewed: Yes - General General: Alert and oriented X 3, No acute distress, Well developed/nourished - Derm Derm: Warm and dry - Extremities Extremities: Other (There is tenderness in the left mid biceps anteriorly. There is localized swelling with some firmness. He is able to flex his arm though it hurts. There is bruising of deep purple in the anterior upper arm and extending to the medial elbow and forearm proximally. There is no tenderness in the elbow or forearm itself. He has good sensation color and capillary refill in the hand and wrist. There is no abnormal sensation and strength in the hand and wrist.) - Neuro Neuro: No motor deficit, No sensory deficit Results - Vitals Vitals: Vital Signs - 24 hr 12/21/17 14:48 Temperature 36.5 C Heart Rate 78 Respiratory 22 Rate Blood Pressure 143/98 H O2 Saturation 100 Oxygen O2 Source Room air PD MEDICAL DECISION MAKING - ED course Complexity details: considered differential (seems to be just gravity movement of the bruising to lower part of arm. Not tender there. Had INR measured just in the last day.), d/w patient Departure - Departure Disposition: 01 Home, Self Care Clinical Impression: Injury of biceps brachii muscle Traumatic ecchymosis of left upper arm Qualifiers: Encounter type: subsequent encounter Qualified Code(s): S40.022D - Contusion of left upper arm, subsequent encounter Condition: Stable Record reviewed to determine appropriate education?: Yes Instructions: ED Hematoma Follow-Up: Santiago Marcum MD [Primary Care Provider] - Comments: The bruising color around the elbow and lower arm is just a gravity effect of the bruise from the injury at the biceps. The bruising color may extend even further down the arm to the wrist area. There is no harm in this.
== END 2017-12-21 15:15 | disposition home or self-care (01) ==
LOC: ED 14:42
DX: S40.022A Contusion of left upper arm, initial encounter (principal); S50.12XA Contusion of left forearm, initial encounter; S46.202A Unspecified injury of muscle, fascia and tendon of other parts of biceps, left arm, initial encounter; X50.0XXA Overexertion from strenuous movement or load, initial encounter; Y92.009 Unspecified place in unspecified non-institutional (private) residence as the place of occurrence of the external cause; I48.91 Unspecified atrial fibrillation; Z79.01 Long term (current) use of anticoagulants; I10 Essential (primary) hypertension; E10.9 Type 1 diabetes mellitus without complications; Z79.4 Long term (current) use of insulin
CPT/HCPCS: 85610; 99282

== ENCOUNTER 2017-12-27 13:19 | Outpatient (CLI) | payer MEDICARE, OTHER | END 2017-12-27 13:20 | disposition home or self-care (01) | LOC: LAB.N 13:19 | PROVIDERS: ATTEND Family Medicine | DX: Z79.01 Long term (current) use of anticoagulants (principal) | CPT/HCPCS: 85610 ==

== ENCOUNTER 2018-01-03 13:07 | Outpatient (CLI) | payer MEDICARE, OTHER | END 2018-01-03 13:08 | disposition home or self-care (01) | LOC: LAB.N 13:07 | PROVIDERS: ATTEND Family Medicine | DX: Z79.01 Long term (current) use of anticoagulants (principal) | CPT/HCPCS: 85610 ==

== ENCOUNTER 2018-01-31 14:25 | Outpatient (CLI) | payer OTHER | END 2018-01-31 14:26 | disposition home or self-care (01) | LOC: LAB.N 14:25 | PROVIDERS: ATTEND Family Medicine | DX: Z79.01 Long term (current) use of anticoagulants (principal) | CPT/HCPCS: 85610 ==

== ENCOUNTER 2018-02-07 14:17 | Outpatient (CLI) | payer MEDICARE | END 2018-02-07 14:18 | disposition home or self-care (01) | LOC: LAB.N 14:17 | PROVIDERS: ATTEND Family Medicine | DX: Z79.01 Long term (current) use of anticoagulants (principal) | CPT/HCPCS: 85610 ==

== ENCOUNTER 2018-02-14 08:00 | Outpatient (CLI) | payer MEDICARE | END 2018-02-14 08:01 | disposition home or self-care (01) | LOC: LAB.N 08:00 | PROVIDERS: ATTEND Family Medicine | DX: Z79.01 Long term (current) use of anticoagulants (principal) | CPT/HCPCS: 85610 ==

== ENCOUNTER 2018-03-06 08:00 | Outpatient (CLI) | payer OTHER | END 2018-03-06 08:01 | disposition home or self-care (01) | LOC: LAB.N 08:00 | PROVIDERS: ATTEND Family Medicine | DX: Z79.01 Long term (current) use of anticoagulants (principal) | CPT/HCPCS: 85610 ==

== ENCOUNTER 2018-03-13 14:07 | Outpatient (CLI) | payer OTHER | END 2018-03-13 14:08 | disposition home or self-care (01) | LOC: LAB.N 14:07 | PROVIDERS: ATTEND Family Medicine | DX: Z79.01 Long term (current) use of anticoagulants (principal) | CPT/HCPCS: 85610 ==

== ENCOUNTER 2018-03-20 13:14 | Outpatient (CLI) | payer OTHER | END 2018-03-20 13:15 | disposition home or self-care (01) | LOC: LAB.N 13:14 | PROVIDERS: ATTEND Family Medicine | DX: Z79.01 Long term (current) use of anticoagulants (principal) | CPT/HCPCS: 85610 ==

== ENCOUNTER 2018-03-27 14:05 | Outpatient (CLI) | payer OTHER | END 2018-03-27 14:06 | disposition home or self-care (01) | LOC: LAB.N 14:05 | PROVIDERS: ATTEND Family Medicine | DX: Z79.01 Long term (current) use of anticoagulants (principal) | CPT/HCPCS: 85610 ==

== ENCOUNTER 2018-04-03 12:55 | Outpatient (CLI) | payer OTHER | END 2018-04-03 12:56 | disposition home or self-care (01) | LOC: LAB.N 12:55 | PROVIDERS: ATTEND Family Medicine | DX: Z79.01 Long term (current) use of anticoagulants (principal) | CPT/HCPCS: 85610 ==

== ENCOUNTER 2018-05-02 13:21 | Outpatient (CLI) | payer OTHER | END 2018-05-02 13:22 | disposition home or self-care (01) | LOC: LAB.N 13:21 | PROVIDERS: ATTEND Family Medicine | DX: Z79.01 Long term (current) use of anticoagulants (principal) | CPT/HCPCS: 85610 ==

== ENCOUNTER 2018-05-08 13:09 | Outpatient (CLI) | payer OTHER | END 2018-05-08 13:10 | disposition home or self-care (01) | LOC: LAB.N 13:09 | PROVIDERS: ATTEND Family Medicine | DX: Z79.01 Long term (current) use of anticoagulants (principal) | CPT/HCPCS: 85610 ==

== ENCOUNTER 2018-05-15 13:38 | Outpatient (CLI) | payer OTHER | END 2018-05-15 13:39 | disposition home or self-care (01) | LOC: LAB.N 13:38 | PROVIDERS: ATTEND Family Medicine | DX: Z79.01 Long term (current) use of anticoagulants (principal) | CPT/HCPCS: 85610 ==

== ENCOUNTER 2018-05-23 12:56 | Outpatient (CLI) | payer OTHER | END 2018-05-23 12:57 | disposition home or self-care (01) | LOC: LAB.N 12:56 | PROVIDERS: ATTEND Family Medicine | DX: Z79.01 Long term (current) use of anticoagulants (principal) | CPT/HCPCS: 85610 ==

== ENCOUNTER 2018-06-06 09:00 | Outpatient (CLI) | payer OTHER ==
[2018-06-06 18:45] LABS: INR 2.1 (0.8-1.2); PT - PROTHROMBIN TIME 23.1 secs (9.9-12.6)
== END 2018-06-06 09:01 | disposition home or self-care (01) ==
LOC: LAB.N 09:00
PROVIDERS: ATTEND Family Medicine
DX: Z79.01 Long term (current) use of anticoagulants (principal)
CPT/HCPCS: 36415; 85610

== ENCOUNTER 2018-06-18 08:00 | Outpatient (CLI) | payer OTHER | END 2018-06-18 08:01 | disposition home or self-care (01) | LOC: LAB.N 08:00 | PROVIDERS: ATTEND Family Medicine | DX: Z79.01 Long term (current) use of anticoagulants (principal) | CPT/HCPCS: 85610 ==

== ENCOUNTER 2018-07-03 13:23 | Outpatient (CLI) | payer OTHER | END 2018-07-03 23:59 | disposition home or self-care (01) | LOC: LAB.N 13:23 | PROVIDERS: ATTEND Family Medicine | DX: Z79.01 Long term (current) use of anticoagulants (principal) | CPT/HCPCS: 85610 ==

== ENCOUNTER 2018-07-10 13:09 | Outpatient (CLI) | payer OTHER | END 2018-07-10 23:59 | disposition home or self-care (01) | LOC: LAB.N 13:09 | PROVIDERS: ATTEND Family Medicine | DX: Z79.01 Long term (current) use of anticoagulants (principal) | CPT/HCPCS: 85610 ==

== ENCOUNTER 2018-07-24 08:00 | Outpatient (CLI) | payer OTHER | END 2018-07-24 23:59 | disposition home or self-care (01) | LOC: LAB.N 08:00 | PROVIDERS: ATTEND Family Medicine | DX: Z79.01 Long term (current) use of anticoagulants (principal) | CPT/HCPCS: 85610 ==

== ENCOUNTER 2018-08-01 13:11 | Outpatient (CLI) | payer OTHER | END 2018-08-01 23:59 | disposition home or self-care (01) | LOC: LAB.N 13:11 | PROVIDERS: ATTEND Family Medicine | DX: Z79.01 Long term (current) use of anticoagulants (principal) | CPT/HCPCS: 85610 ==

== ENCOUNTER 2018-08-14 08:00 | Outpatient (CLI) | payer OTHER | END 2018-08-14 23:59 | disposition home or self-care (01) | LOC: LAB.N 08:00 | PROVIDERS: ATTEND Family Medicine | DX: Z79.01 Long term (current) use of anticoagulants (principal) | CPT/HCPCS: 85610 ==

== ENCOUNTER 2018-08-21 08:00 | Outpatient (CLI) | payer OTHER | END 2018-08-21 23:59 | disposition home or self-care (01) | LOC: LAB.N 08:00 | PROVIDERS: ATTEND Family Medicine | DX: Z79.01 Long term (current) use of anticoagulants (principal) | CPT/HCPCS: 85610 ==

== ENCOUNTER 2018-08-27 14:37 | Outpatient (CLI) | payer OTHER ==
--- NOTE | 2018-08-27 17:18 | MRI Report ---
Reason: PAIN IN LEFT SHOULDER Procedure Date: 08/27/2018 Accession Number: [id number] / [id number] Procedure: MRI - Shoulder LT W/O CPT Code: FULL RESULT: EXAM: LEFT SHOULDER MRI WITHOUT CONTRAST EXAM DATE: 08/27/2018 02:52 PM. CLINICAL HISTORY: Pain in left shoulder. COMPARISON: SHOULDER 3 VIEW LT 12/20/2017 4:03 AM. TECHNIQUE: Only single axial proton density fat saturation sequence obtained of the left shoulder secondary to patient claustrophobia and pain. Patient unable to remain still due to tremors. FINDINGS: Small fluid collection in the acromioclavicular joint mild arthrosis acromioclavicular joint probable small fluid collection subacromial- subdeltoid bursa. Interstitial fluid signal tear subscapularis tendon 4 cm in length. Extensive partial tear distal subscapularis tendon at least 75% thickness. Possible complete tear 2 cm in length distal supraspinatus tendon. Diminutive anterior superior labrum with altered morphology. Diminutive posterior superior labrum. Complete tear biceps tendon with tendon retraction. Greater tuberosity 1.7 cm cyst. Small fluid collection subscapularis bursa. IMPRESSION: 1. Examination is severely compromised limited to a single axial proton density fat saturation sequence. 2. Complete tear biceps tendon with retraction. 3. Near complete partial tear distal subscapularis tendon. 3. Longitudinal interstitial tear infraspinatus tendon. 4. Likely complete tear supraspinatus tendon 2 cm in length. 5. Mild increased fluid acromioclavicular joint. 6. Probable superior labrum tear with anterior and posterior extension. [facility] MUSCULOSKELETAL RADIOLOGY SECTION
== END 2018-08-27 14:38 | disposition home or self-care (01) ==
LOC: DI 14:37
PROVIDERS: ATTEND Orthopaedic Surgery Sports Medicine
DX: S46.212A Strain of muscle, fascia and tendon of other parts of biceps, left arm, initial encounter (principal); M75.102 Unspecified rotator cuff tear or rupture of left shoulder, not specified as traumatic; M25.412 Effusion, left shoulder

== ENCOUNTER 2018-08-28 12:56 | Outpatient (CLI) | payer OTHER | END 2018-08-28 23:59 | disposition home or self-care (01) | LOC: LAB.N 12:56 | PROVIDERS: ATTEND Family Medicine | DX: Z79.01 Long term (current) use of anticoagulants (principal) | CPT/HCPCS: 85610 ==

== ENCOUNTER 2018-09-04 08:00 | Outpatient (CLI) | payer OTHER | END 2018-09-04 23:59 | disposition home or self-care (01) | LOC: LAB.N 08:00 | PROVIDERS: ATTEND Family Medicine | DX: Z79.01 Long term (current) use of anticoagulants (principal) | CPT/HCPCS: 85610 ==

== ENCOUNTER 2018-09-11 08:00 | Outpatient (CLI) | payer OTHER | END 2018-09-11 23:59 | disposition home or self-care (01) | LOC: LAB.N 08:00 | PROVIDERS: ATTEND Family Medicine | DX: Z79.01 Long term (current) use of anticoagulants (principal) | CPT/HCPCS: 85610 ==

== ENCOUNTER 2018-09-18 12:58 | Outpatient (CLI) | payer OTHER | END 2018-09-18 23:59 | disposition home or self-care (01) | LOC: LAB.N 12:58 | PROVIDERS: ATTEND Family Medicine | DX: Z79.01 Long term (current) use of anticoagulants (principal) | CPT/HCPCS: 85610 ==

== ENCOUNTER 2018-10-01 13:09 | Outpatient (CLI) | payer OTHER | END 2018-10-01 23:59 | disposition home or self-care (01) | LOC: LAB.N 13:09 | PROVIDERS: ATTEND Family Medicine | DX: Z79.01 Long term (current) use of anticoagulants (principal) | CPT/HCPCS: 85610 ==

== ENCOUNTER 2018-10-16 08:00 | Outpatient (CLI) | payer OTHER | END 2018-10-16 23:59 | disposition home or self-care (01) | LOC: LAB.N 08:00 | PROVIDERS: ATTEND Family Medicine | DX: Z79.01 Long term (current) use of anticoagulants (principal) | CPT/HCPCS: 85610 ==

== ENCOUNTER 2018-10-30 14:18 | Outpatient (CLI) | payer OTHER | END 2018-10-30 14:19 | disposition home or self-care (01) | LOC: LAB.N 14:18 | PROVIDERS: ATTEND Family Medicine | DX: Z51.81 Encounter for therapeutic drug level monitoring (principal); Z79.01 Long term (current) use of anticoagulants | CPT/HCPCS: 85610 ==

== ENCOUNTER 2018-11-14 08:00 | Outpatient (CLI) | payer OTHER | END 2018-11-14 23:59 | disposition home or self-care (01) | LOC: LAB.N 08:00 | PROVIDERS: ATTEND Family Medicine | DX: Z79.01 Long term (current) use of anticoagulants (principal) | CPT/HCPCS: 85610 ==

== ENCOUNTER 2018-11-28 12:53 | Outpatient (CLI) | payer OTHER | END 2018-11-28 12:54 | disposition home or self-care (01) | LOC: LAB.N 12:53 | PROVIDERS: ATTEND Family Medicine | DX: Z79.01 Long term (current) use of anticoagulants (principal) | CPT/HCPCS: 85610 ==

== ENCOUNTER 2018-12-12 12:58 | Outpatient (CLI) | payer OTHER | END 2018-12-12 23:59 | disposition home or self-care (01) | LOC: LAB.N 12:58 | PROVIDERS: ATTEND Family Medicine | DX: Z51.81 Encounter for therapeutic drug level monitoring (principal); Z79.01 Long term (current) use of anticoagulants | CPT/HCPCS: 85610 ==

== ENCOUNTER 2018-12-25 08:00 | Outpatient (CLI) | payer OTHER | END 2018-12-25 23:59 | disposition home or self-care (01) | LOC: LAB.N 08:00 | PROVIDERS: ATTEND Family Medicine | DX: Z79.01 Long term (current) use of anticoagulants (principal) | CPT/HCPCS: 85610 ==

== ENCOUNTER 2019-01-09 12:58 | Outpatient (CLI) | payer OTHER | END 2019-01-09 23:59 | disposition home or self-care (01) | LOC: LAB.N 12:58 | PROVIDERS: ATTEND Family Medicine | DX: Z79.01 Long term (current) use of anticoagulants (principal) | CPT/HCPCS: 85610 ==

== ENCOUNTER 2019-01-15 08:00 | Outpatient (CLI) | payer OTHER | END 2019-01-15 23:59 | disposition home or self-care (01) | LOC: LAB.N 08:00 | PROVIDERS: ATTEND Family Medicine | DX: Z51.81 Encounter for therapeutic drug level monitoring (principal); Z79.01 Long term (current) use of anticoagulants | CPT/HCPCS: 85610 ==

== ENCOUNTER 2019-02-06 14:07 | Outpatient (CLI) | payer OTHER | END 2019-02-06 23:59 | disposition home or self-care (01) | LOC: LAB.WCP 14:07 | PROVIDERS: ATTEND Family Medicine | DX: Z79.01 Long term (current) use of anticoagulants (principal) | CPT/HCPCS: 85610 ==

== ENCOUNTER 2019-02-12 08:00 | Outpatient (CLI) | payer OTHER | END 2019-02-12 23:59 | disposition home or self-care (01) | LOC: LAB.N 08:00 | PROVIDERS: ATTEND Family Medicine | DX: Z79.01 Long term (current) use of anticoagulants (principal) | CPT/HCPCS: 85610 ==

== ENCOUNTER 2019-02-20 13:08 | Outpatient (CLI) | payer OTHER | END 2019-02-20 23:59 | disposition home or self-care (01) | LOC: LAB.N 13:08 | PROVIDERS: ATTEND Family Medicine | DX: Z79.01 Long term (current) use of anticoagulants (principal) | CPT/HCPCS: 85610 ==

== ENCOUNTER 2019-03-05 08:00 | Outpatient (CLI) | payer OTHER | END 2019-03-05 23:59 | disposition home or self-care (01) | LOC: LAB.N 08:00 | PROVIDERS: ATTEND Family Medicine | DX: Z79.01 Long term (current) use of anticoagulants (principal) | CPT/HCPCS: 85610 ==

== ENCOUNTER 2019-03-19 08:00 | Outpatient (CLI) | payer OTHER | END 2019-03-19 23:59 | disposition home or self-care (01) | LOC: LAB.N 08:00 | PROVIDERS: ATTEND Family Medicine | DX: Z79.01 Long term (current) use of anticoagulants (principal) | CPT/HCPCS: 85610 ==

== ENCOUNTER 2019-03-19 23:58 | Emergency (ER) | payer OTHER ==
[2019-03-20 00:07] VITALS: BP 163/83
--- NOTE | 2019-03-20 00:43 | ED Physician Documentation ---
History of Present Illness - Stated complaint Stated Complaint: L FOOT SMALL TOE DISCOLORATION - Chief complaint Chief Complaint: Ext Problem - History obtained from History obtained from: Patient - History of Present Illness Timing: Today Pain level max: 0 Pain level now: 0 - Additonal information Additional information: 68-year-old male, takes warfarin for atrial fibrillation. States noticed dark discoloration on the left fifth toe. Concerned about gangrene. No fevers. No vomiting. Nothing makes it better or worse. Whole blood INR done today, 2.9. Took his nighttime warfarin already. No trauma. No pain. No neuropathy Review of Systems Constitutional: denies: Fever, Chills GI: denies: Nausea, Vomiting Skin: denies: Rash Musculoskeletal: denies: Neck pain, Back pain Neurologic: denies: Headache PD PAST MEDICAL HISTORY - Past Medical History Past Medical History: Yes Cardiovascular: Hypertension, Atrial fibrillation Respiratory: Sleep apnea Endocrine/Autoimmune: Type 1 diabetes GI: GERD : None HEENT: None Psych: None Musculoskeletal: Osteoarthritis, Gout Derm: None - Past Surgical History Past Surgical History: Yes General: Cholecystectomy Ortho: Spine surgery HEENT: Other - Present Medications Home Medications: Ambulatory Orders Medication Instructions Recorded Confirmed Metformin HCl [Glucophage Xr] 1,000 mg PO BID 10/02/13 03/20/19 Omeprazole 20 mg PO BID 10/02/13 03/20/19 Warfarin [Coumadin] 5 mg PO 1400 10/02/13 03/20/19 diltiaZEM CD [Cardizem Cd] 240 mg PO BID 10/02/13 03/20/19 Cholecalciferol (Vitamin D3) 1,000 unit PO BID 10/05/13 03/20/19 [Vitamin D-3] Lisinopril [Zestril] 10 mg PO DAILY 10/05/13 03/20/19 Triamcinolone 0.1% Oint [Kenalog 1 applic TD BID 12/03/15 03/20/19 0.1% Oint] Atorvastatin Calcium 40 mg PO DAILY 01/24/16 03/20/19 Carbidopa/Levodopa [Carbidopa-Levo 25 - 100 tab PO TID 01/24/16 03/20/19 ER 25-100 Tab] Insulin Glargine,Hum.rec.anlog 30 unit SQ DAILY 01/24/16 03/20/19 [Lantus] Metoprolol Tartrate 12.5 mg PO BID 01/24/16 03/20/19 Meclizine [Antivert] 12.5 mg PO Q6H PRN #10 tablet 10/22/16 03/20/19 Senna [Senokot] 2 tab PO DAILY 03/09/17 03/20/19 - Allergies Allergies/Adverse Reactions: Allergies Allergy/AdvReac Type Severity Reaction Status Date / Time No Known Drug Allergies Allergy Verified 03/20/19 00:07 - Social History Does the pt smoke?: No Smoking Status: Never smoker Does the pt drink ETOH?: No Does the pt have substance abuse?: No - Immunizations Immunizations are current?: Yes - POLST Patient has POLST: No PD ED PE NORMAL - Vitals Vital signs reviewed: Yes - General General: Alert and oriented X 3, No acute distress, Well developed/nourished - HEENT HEENT: Moist mucous membranes - Neck Neck: Supple, no meningeal sign - Cardiac Cardiac: RRR, Strong equal pulses - Respiratory Respiratory: No respiratory distress, Clear bilaterally - Derm Derm: Warm and dry - Extremities Extremities: No deformity, No tenderness to palpate, Other (Slight ecchymosis to the lateral aspect of the left fifth toe. No tenderness. No deformity. Neurovascularly intact. 1 x 3 cm area of Ecchymosis) - Neuro Neuro: Alert and oriented X 3 - Psych Psych: Normal mood, Normal affect Results - Vitals Vitals: Vital Signs - 24 hr 03/20/19 00:02 Temperature 36.6 C Heart Rate 70 Respiratory 18 Rate Blood Pressure 163/83 H O2 Saturation 98 Oxygen O2 Source Room air PD MEDICAL DECISION MAKING - ED course Complexity details: reviewed old records, considered differential, d/w patient ED course: Patient with a left toe bruise. He is on warfarin. We will hold his next dose. Whole blood INR was 2.9 today. No pain. Patient does not have neuropathy. Will hold x-rays at this time. Patient counseled regarding signs and symptoms for which I believe and urgent re-evaluation would be necessary. Patient with good understanding of and agreement to plan and is comfortable going home at this time This document was made in part using voice recognition software. While efforts are made to proofread this document, sound alike and grammatical errors may occur. Departure - Departure Disposition: 01 Home, Self Care Clinical Impression: Ecchymosis Condition: Good Instructions: ED Contusion Soft Tissue Follow-Up: Santiago Marcum MD [Primary Care Provider] - Within 1 week Comments: Your INR was 2.9 today. You can skip the dose tomorrow. The bruising will likely increase over the next 12 to 24 hours. You can apply ice. Return if you worsen
== END 2019-03-20 00:48 | disposition home or self-care (01) ==
LOC: ED 23:58
DX: R23.3 Spontaneous ecchymoses (principal); Z79.01 Long term (current) use of anticoagulants; I48.91 Unspecified atrial fibrillation; I10 Essential (primary) hypertension; E10.9 Type 1 diabetes mellitus without complications
CPT/HCPCS: 99282

== ENCOUNTER 2019-03-26 13:41 | Outpatient (CLI) | payer OTHER | END 2019-03-26 23:59 | disposition home or self-care (01) | LOC: LAB.N 13:41 | PROVIDERS: ATTEND Family Medicine | DX: Z51.81 Encounter for therapeutic drug level monitoring (principal); Z79.01 Long term (current) use of anticoagulants | CPT/HCPCS: 85610 ==

== ENCOUNTER 2019-04-02 11:13 | Outpatient (CLI) | payer OTHER | END 2019-04-02 23:59 | disposition home or self-care (01) | LOC: LAB.N 11:13 | PROVIDERS: ATTEND Family Medicine | DX: Z79.01 Long term (current) use of anticoagulants (principal) | CPT/HCPCS: 85610 ==

== ENCOUNTER 2019-04-09 08:00 | Outpatient (CLI) | payer OTHER | END 2019-04-09 23:59 | disposition home or self-care (01) | LOC: LAB.N 08:00 | PROVIDERS: ATTEND Family Medicine | DX: Z79.01 Long term (current) use of anticoagulants (principal) | CPT/HCPCS: 85610 ==

== ENCOUNTER 2019-05-06 08:00 | Outpatient (CLI) | payer OTHER | END 2019-05-06 23:59 | disposition home or self-care (01) | LOC: LAB.N 08:00 | PROVIDERS: ATTEND Family Medicine | DX: Z51.81 Encounter for therapeutic drug level monitoring (principal); Z79.01 Long term (current) use of anticoagulants | CPT/HCPCS: 85610 ==

== ENCOUNTER 2019-05-28 14:01 | Outpatient (CLI) | payer OTHER | END 2019-05-28 23:59 | disposition home or self-care (01) | LOC: LAB.N 14:01 | PROVIDERS: ATTEND Family Medicine | DX: Z79.01 Long term (current) use of anticoagulants (principal) | CPT/HCPCS: 85610 ==

== ENCOUNTER 2019-06-24 13:17 | Outpatient (CLI) | payer OTHER | END 2019-06-24 23:59 | disposition home or self-care (01) | LOC: LAB.N 13:17 | PROVIDERS: ATTEND Family Medicine | DX: Z79.01 Long term (current) use of anticoagulants (principal) | CPT/HCPCS: 85610 ==

== ENCOUNTER 2019-07-17 13:53 | Outpatient (CLI) | payer OTHER | END 2019-07-17 23:59 | disposition home or self-care (01) | LOC: LAB.N 13:53 | PROVIDERS: ATTEND Family Medicine | DX: Z79.01 Long term (current) use of anticoagulants (principal) | CPT/HCPCS: 85610 ==

== ENCOUNTER 2019-07-31 08:00 | Outpatient (CLI) | payer OTHER | END 2019-07-31 23:59 | disposition home or self-care (01) | LOC: LAB.N 08:00 | PROVIDERS: ATTEND Family Medicine | DX: Z79.01 Long term (current) use of anticoagulants (principal) | CPT/HCPCS: 85610 ==

== ENCOUNTER 2019-08-08 08:00 | Outpatient (CLI) | payer OTHER | END 2019-08-08 23:59 | disposition home or self-care (01) | LOC: LAB.N 08:00 | PROVIDERS: ATTEND Family Medicine | DX: Z79.01 Long term (current) use of anticoagulants (principal) | CPT/HCPCS: 85610 ==

== ENCOUNTER 2019-08-14 13:40 | Outpatient (CLI) | payer OTHER | END 2019-08-14 23:59 | disposition home or self-care (01) | LOC: LAB.N 13:40 | PROVIDERS: ATTEND Family Medicine | DX: Z79.01 Long term (current) use of anticoagulants (principal) | CPT/HCPCS: 85610 ==

== ENCOUNTER 2019-08-21 08:00 | Outpatient (CLI) | payer OTHER | END 2019-08-21 23:59 | disposition home or self-care (01) | LOC: LAB.N 08:00 | PROVIDERS: ATTEND Family Medicine | DX: Z79.01 Long term (current) use of anticoagulants (principal) | CPT/HCPCS: 85610 ==

== ENCOUNTER 2019-09-12 08:00 | Outpatient (CLI) | payer OTHER | END 2019-09-12 23:59 | disposition home or self-care (01) | LOC: LAB.N 08:00 | PROVIDERS: ATTEND Family Medicine | DX: Z79.01 Long term (current) use of anticoagulants (principal) | CPT/HCPCS: 85610 ==

== ENCOUNTER 2019-09-15 14:13 | Outpatient (CLI) | payer OTHER ==
[2019-09-15 18:17] LABS: BASOPHILS # (AUTO) 0.1 10^3/uL (0.0-0.1); BASOPHILS % (AUTO) 0.7 %; EOSINOPHILS # (AUTO) 0.1 10^3/uL (0.0-0.7); EOSINOPHILS % (AUTO) 1.7 %; HGB - HEMOGLOBIN 13.7 g/dL (14.0-18.0); LYMPHOCYTES # (AUTO) 1.6 10^3/uL (1.5-3.5); MEAN CORPUSCULAR HEMOGLOBIN 31.4 pg (27.0-31.0); MEAN CORPUSCULAR HGB CONC 32.3 g/dL (32.0-36.0); MEAN CORPUSCULAR VOLUME 97.2 fL (80.0-94.0); MEAN PLATELET VOLUME 12.4 fL (7.4-11.4); MONOCYTES # (AUTO) 0.7 10^3/uL (0.0-1.0); MONOCYTES % (AUTO) 9.4 %; NEUTROPHILS # (AUTO) 4.6 10^3/uL (1.5-6.6); NEUTROPHILS % (AUTO) 64.6 %; PLT - PLATELET COUNT 231 10^3/uL (130-450); RED BLOOD COUNT 4.36 10^6/uL (4.70-6.10); RED CELL DISTRIBUTION WIDTH 13.1 % (12.0-15.0); WHITE BLOOD COUNT 7.1 x10^3/uL (4.8-10.8)
[2019-09-15 18:53] LABS: BUN - BLOOD UREA NITROGEN 25 mg/dL (6-20); CALCIUM 8.6 mg/dL (8.5-10.3); CARBON DIOXIDE - CO2 20 mmol/L (21-32); CHLORIDE 106 mmol/L (101-111); CHOLESTEROL 107 mg/dL; CREATININE 1.6 mg/dL (0.6-1.2); GFR - MDRD 43 (>89); GLUCOSE 149 mg/dL (70-100); HDL CHOLESTEROL 34 mg/dL; LDL CHOLESTEROL,CALCULATED 37 mg/dL; SODIUM 137 mmol/L (135-145); VLDL CHOLESTEROL 36 mg/dL
[2019-09-15 18:54] LABS: CHOL/HDL RATIO 3.1 (<5.0); LDL/HDL RATIO 1.1 (<3.6)
== END 2019-09-15 23:59 | disposition home or self-care (01) ==
LOC: LAB.N 14:13
PROVIDERS: ATTEND Family Medicine
DX: Z79.01 Long term (current) use of anticoagulants (principal); I10 Essential (primary) hypertension; E78.5 Hyperlipidemia, unspecified
CPT/HCPCS: 36415; 80048; 80061; 83721; 85025; 85610

== ENCOUNTER 2019-10-02 13:22 | Outpatient (CLI) | payer OTHER | END 2019-10-02 23:59 | disposition home or self-care (01) | LOC: LAB.N 13:22 | PROVIDERS: ATTEND Family Medicine | DX: Z79.01 Long term (current) use of anticoagulants (principal) | CPT/HCPCS: 85610 ==

== ENCOUNTER 2019-10-10 13:37 | Outpatient (CLI) | payer OTHER | END 2019-10-10 23:59 | disposition home or self-care (01) | LOC: LAB.N 13:37 | PROVIDERS: ATTEND Family Medicine | DX: Z79.01 Long term (current) use of anticoagulants (principal) | CPT/HCPCS: 85610 ==

== ENCOUNTER 2019-10-24 08:00 | Outpatient (CLI) | payer OTHER | END 2019-10-24 23:59 | disposition home or self-care (01) | LOC: LAB.N 08:00 | PROVIDERS: ATTEND Family Medicine | DX: Z79.01 Long term (current) use of anticoagulants (principal) | CPT/HCPCS: 85610 ==

== ENCOUNTER 2019-11-06 08:00 | Outpatient (CLI) | payer OTHER ==
[2019-11-06 16:35] LABS: INR 3.7 (0.8-1.2); PT - PROTHROMBIN TIME 38.9 secs (9.9-12.6)
== END 2019-11-06 23:59 | disposition home or self-care (01) ==
LOC: LAB.WCP 08:00
PROVIDERS: ATTEND Family Medicine
DX: Z79.01 Long term (current) use of anticoagulants (principal)
CPT/HCPCS: 36415; 85610

== ENCOUNTER 2019-11-13 08:00 | Outpatient (CLI) | payer MEDICARE, OTHER ==
[2019-11-13 16:58] LABS: INR 1.7 (0.8-1.2); PT - PROTHROMBIN TIME 18.9 secs (9.9-12.6)
== END 2019-11-13 23:59 | disposition home or self-care (01) ==
LOC: LAB.WCP 08:00
PROVIDERS: ATTEND Family Medicine
DX: Z79.01 Long term (current) use of anticoagulants (principal)
CPT/HCPCS: 36415; 85610

== ENCOUNTER 2019-11-20 08:00 | Outpatient (CLI) | payer MEDICARE ==
[2019-11-20 13:08] LABS: INR 2.3 (0.8-1.2); PT - PROTHROMBIN TIME 24.9 secs (9.9-12.6)
== END 2019-11-20 23:59 | disposition home or self-care (01) ==
LOC: LAB.WCP 08:00
PROVIDERS: ATTEND Family Medicine
DX: Z79.01 Long term (current) use of anticoagulants (principal)
CPT/HCPCS: 36415; 85610

== ENCOUNTER 2019-12-24 13:23 | Outpatient (CLI) | payer MEDICARE ==
[2019-12-24 18:07] LABS: INR 3.8 (0.8-1.2); PT - PROTHROMBIN TIME 39.8 secs (9.9-12.6)
== END 2019-12-24 23:59 | disposition home or self-care (01) ==
LOC: LAB.WCP 13:23
PROVIDERS: ATTEND Family Medicine
DX: Z79.01 Long term (current) use of anticoagulants (principal)
CPT/HCPCS: 36415; 85610

== ENCOUNTER 2019-12-26 13:36 | Outpatient (CLI) | payer MEDICARE ==
[2019-12-26 17:52] LABS: CALCIUM 8.6 mg/dL (8.5-10.3); CREATININE 1.8 mg/dL (0.6-1.2)
== END 2019-12-26 23:59 | disposition home or self-care (01) ==
LOC: LAB.WCP 13:36
PROVIDERS: ATTEND Internal Medicine Cardiovascular Disease
DX: I10 Essential (primary) hypertension (principal)
CPT/HCPCS: 36415; 80048

== ENCOUNTER 2019-12-31 14:06 | Outpatient (CLI) | payer MEDICARE ==
[2019-12-31 18:42] LABS: INR 2.8 (0.8-1.2); PT - PROTHROMBIN TIME 29.6 secs (9.9-12.6)
== END 2019-12-31 23:59 | disposition home or self-care (01) ==
LOC: LAB.WCP 14:06
PROVIDERS: ATTEND Family Medicine
DX: Z79.01 Long term (current) use of anticoagulants (principal)
CPT/HCPCS: 36415; 85610

== ENCOUNTER 2020-01-05 17:15 | Emergency (ER) | payer MEDICARE ==
[2020-01-05 17:21] VITALS: BP 157/94
--- NOTE | 2020-01-05 17:34 | ED Physician Documentation ---
History of Present Illness - Stated complaint Stated Complaint: L EAR PX - Chief complaint Chief Complaint: Heent - History obtained from History obtained from: Patient - History of Present Illness Timing: Today Pain level max: 3 Pain level now: 3 - Additonal information Additional information: 69-year-old male with left ear pain today. States green drainage from the ear when he removed his hearing aid and put a Q-tip in his ear. No fevers. No cough. No sore throat. Nothing makes it better or worse. Review of Systems Constitutional: denies: Fever, Chills Nose: denies: Rhinorrhea / runny nose, Congestion Cardiac: denies: Chest pain / pressure Respiratory: denies: Cough GI: denies: Vomiting Skin: denies: Rash PD PAST MEDICAL HISTORY - Past Medical History Cardiovascular: Hypertension, Atrial fibrillation Respiratory: Sleep apnea Endocrine/Autoimmune: Type 1 diabetes GI: GERD : None HEENT: None Psych: None Musculoskeletal: Osteoarthritis, Gout Derm: None - Past Surgical History Past Surgical History: Yes General: Cholecystectomy Ortho: Spine surgery HEENT: Other - Present Medications Home Medications: Ambulatory Orders Medication Instructions Recorded Confirmed Metformin HCl [Glucophage Xr] 1,000 mg PO BID 10/02/13 03/20/19 Omeprazole 20 mg PO BID 10/02/13 03/20/19 Warfarin [Coumadin] 5 mg PO 1400 10/02/13 03/20/19 diltiaZEM CD [Cardizem Cd] 240 mg PO BID 10/02/13 03/20/19 Cholecalciferol (Vitamin D3) 1,000 unit PO BID 10/05/13 03/20/19 [Vitamin D-3] lisinopriL [Zestril] 10 mg PO DAILY 10/05/13 03/20/19 Triamcinolone 0.1% Oint [Kenalog 1 applic TD BID 12/03/15 03/20/19 0.1% Oint] Atorvastatin Calcium 40 mg PO DAILY 01/24/16 03/20/19 Insulin Glargine,Hum.rec.anlog 30 unit SQ DAILY 01/24/16 03/20/19 [Lantus] Metoprolol Tartrate 12.5 mg PO BID 01/24/16 03/20/19 Meclizine [Antivert] 12.5 mg PO Q6H PRN #10 tablet 10/22/16 03/20/19 Senna [Senokot] 2 tab PO DAILY 03/09/17 03/20/19 Carbidopa/Levodopa 1 each PO QID 01/05/20 01/05/20 [Carbidopa-Levodopa 25-250 Tab] Docusate Sodium [Dss] 250 mg PO 01/05/20 Ergocalciferol (Vitamin D2) 1,250 mcg PO ONCE 01/05/20 01/05/20 [Drisdol] Neomycin/Polymyx/Hc Otic Drops 4 drops OT TID 10 Days #1 bottle 01/05/20 [Cortisporin Ear Susp] methocarbamoL [Methocarbamol] 500 mg PO DAILY 01/05/20 01/05/20 - Allergies Allergies/Adverse Reactions: Allergies Allergy/AdvReac Type Severity Reaction Status Date / Time No Known Drug Allergies Allergy Verified 01/05/20 17:18 - Social History Does the pt smoke?: No Smoking Status: Never smoker Does the pt drink ETOH?: No Does the pt have substance abuse?: No - Immunizations Immunizations are current?: Yes - POLST Patient has POLST: No PD ED PE NORMAL - Vitals Vital signs reviewed: Yes - General General: Alert and oriented X 3, No acute distress - HEENT HEENT: Moist mucous membranes, Other (Right ear canal is normal. Left TM is normal. Left ear canal is erythematous, swollen with white exudate. Pinna is normal.) - Neck Neck: Supple, no meningeal sign, No adenopathy - Cardiac Cardiac: RRR - Respiratory Respiratory: No respiratory distress, Clear bilaterally - Derm Derm: Warm and dry - Neuro Neuro: Alert and oriented X 3 Results - Vitals Vitals: Vital Signs - 24 hr 01/05/20 17:18 Temperature 36.5 C Heart Rate 73 Respiratory 14 Rate Blood Pressure 157/94 H O2 Saturation 98 Oxygen O2 Source Room air PD MEDICAL DECISION MAKING - ED course Complexity details: considered differential, d/w patient ED course: Patient with a left acute otitis externa. Will place on Cortisporin otic. Patient counseled regarding signs and symptoms for which I believe and urgent re-evaluation would be necessary. Patient with good understanding of and agreement to plan and is comfortable going home at this time This document was made in part using voice recognition software. While efforts are made to proofread this document, sound alike and grammatical errors may occur. No malignant otitis externa Departure - Departure Disposition: 01 Home, Self Care Clinical Impression: Otitis externa Qualifiers: Otitis externa type: unspecified type Chronicity: acute Laterality: left Qualified Code(s): H60.502 - Unspecified acute noninfective otitis externa, left ear Condition: Good Instructions: ED Otitis Externa Follow-Up: your,doctor in 1 week for recheck [Other] Prescriptions: Neomycin/Polymyx/Hc Otic Drops [Cortisporin Ear Susp] 4 drops OT TID 10 Days #1 bottle Comments: Use the antibiotic eardrops as prescribed. These were sent to [facility] in [place]. Return if you worsen. Discharge Date/Time: 01/05/20 17:41
== END 2020-01-05 17:41 | disposition home or self-care (01) ==
LOC: ED 17:15
DX: H60.502 Unspecified acute noninfective otitis externa, left ear (principal); I10 Essential (primary) hypertension; E10.9 Type 1 diabetes mellitus without complications; I48.91 Unspecified atrial fibrillation; Z79.01 Long term (current) use of anticoagulants
CPT/HCPCS: 99282; 99284

== ENCOUNTER 2020-01-07 12:47 | Emergency (ER) | payer MEDICARE, OTHER ==
--- NOTE | 2020-01-07 13:14 | ED Physician Documentation ---
PD JR HEENT - Stated complaint Stated Complaint: LT EAR PX - Chief complaint Chief Complaint: Heent - History obtained from History obtained from: Patient - History of Present Illness Timing - onset: How many days ago (5) Timing - duration: Days (5) Timing - details: Gradual onset, Still present Location: Left ear Improves: Medication Associated symptoms: Congestion, Headache. No: Cough Similar symptoms before: Has not had sx before Recently seen: Emergency Dept - Additional information Additional information: 69-year-old male who wears hearing aids and is very hard of hearing has developed an otitis externa on the left and he has been started on some Cortisporin otic suspension the pain was slightly better he noted a fair amount of swelling in the ear when he tried to put his hearing aid back in and he is come back in now for reevaluation. He has been using his drops 3 times per day. Review of Systems Constitutional: denies: Fever, Chills Eyes: denies: Decreased vision Ears: reports: Loss of hearing, Ear pain, Drainage/discharge Nose: denies: Rhinorrhea / runny nose, Congestion Throat: denies: Sore throat Respiratory: denies: Cough GI: denies: Vomiting PD PAST MEDICAL HISTORY - Past Medical History Cardiovascular: Hypertension, Atrial fibrillation Respiratory: Sleep apnea Endocrine/Autoimmune: Type 1 diabetes GI: GERD : None HEENT: None Psych: None Musculoskeletal: Osteoarthritis, Gout Derm: None - Past Surgical History Past Surgical History: Yes General: Cholecystectomy Ortho: Spine surgery HEENT: Other - Present Medications Home Medications: Ambulatory Orders Medication Instructions Recorded Confirmed Metformin HCl [Glucophage Xr] 1,000 mg PO BID 10/02/13 03/20/19 Omeprazole 20 mg PO BID 10/02/13 03/20/19 Warfarin [Coumadin] 5 mg PO 1400 10/02/13 03/20/19 diltiaZEM CD [Cardizem Cd] 240 mg PO BID 10/02/13 03/20/19 Cholecalciferol (Vitamin D3) 1,000 unit PO BID 10/05/13 03/20/19 [Vitamin D-3] lisinopriL [Zestril] 10 mg PO DAILY 10/05/13 03/20/19 Triamcinolone 0.1% Oint [Kenalog 1 applic TD BID 12/03/15 03/20/19 0.1% Oint] Atorvastatin Calcium 40 mg PO DAILY 01/24/16 03/20/19 Insulin Glargine,Hum.rec.anlog 30 unit SQ DAILY 01/24/16 03/20/19 [Lantus] Metoprolol Tartrate 12.5 mg PO BID 01/24/16 03/20/19 Meclizine [Antivert] 12.5 mg PO Q6H PRN #10 tablet 10/22/16 03/20/19 Senna [Senokot] 2 tab PO DAILY 03/09/17 03/20/19 Carbidopa/Levodopa 1 each PO QID 01/05/20 01/05/20 [Carbidopa-Levodopa 25-250 Tab] Docusate Sodium [Dss] 250 mg PO 01/05/20 Ergocalciferol (Vitamin D2) 1,250 mcg PO ONCE 01/05/20 01/05/20 [Drisdol] Neomycin/Polymyx/Hc Otic Drops 4 drops OT TID 10 Days #1 bottle 01/05/20 [Cortisporin Ear Susp] methocarbamoL [Methocarbamol] 500 mg PO DAILY 01/05/20 01/05/20 - Allergies Allergies/Adverse Reactions: Allergies Allergy/AdvReac Type Severity Reaction Status Date / Time No Known Drug Allergies Allergy Verified 01/07/20 12:57 - Social History Does the pt smoke?: No Smoking Status: Never smoker Does the pt drink ETOH?: No Does the pt have substance abuse?: No - Immunizations Immunizations are current?: Yes - POLST Patient has POLST: No PD ED PE NORMAL - Vitals Vital signs reviewed: Yes (Hypertensive) - General General: Alert and oriented X 3, No acute distress, Well developed/nourished, Other (The patient is very hard of hearing unable to hear me or read lips. He is able to hear if he puts his hearing aid in.) - HEENT HEENT: Atraumatic, PERRL, EOMI, Other (The left TM is not visible the canal is swollen and we will require the placement of a wick. There is no significant drainage.There is no tenderness to the mastoid or the preauricular tissues) - Neck Neck: Supple, no meningeal sign, No bony TTP - Respiratory Respiratory: No respiratory distress - Derm Derm: Normal color, Warm and dry, No rash - Extremities Extremities: No deformity, No edema - Neuro Neuro: No motor deficit, No sensory deficit, Normal speech Eye Opening: Spontaneous Motor: Obeys Commands Verbal: Oriented GCS Score: 15 - Psych Psych: Normal mood, Normal affect Results - Vitals Vitals: Vital Signs - 24 hr 01/07/20 12:51 Temperature 36.5 C Heart Rate 78 Respiratory 16 Rate Blood Pressure 148/110 H O2 Saturation 95 Oxygen O2 Source Room air PD MEDICAL DECISION MAKING - ED course Complexity details: considered differential, d/w patient ED course: 69-year-old male with significant swelling in the ear canal who is being treated for otitis externa seems to have had some clinical improvement in symptoms and not in the amount of swelling. I have placed a Gallegos ear wick and saturated with Cortisporin otic suspension. The patient tolerates this well. I have asked him to continue the use of the Cortisporin otic 4 times per day. I have asked him to take out the wick tomorrow and if he is not substantially improved to follow-up with [facility]. Departure - Departure Disposition: 01 Home, Self Care Clinical Impression: Otitis externa Qualifiers: Otitis externa type: unspecified type Chronicity: acute Laterality: left Qualified Code(s): H60.502 - Unspecified acute noninfective otitis externa, left ear Condition: Stable Instructions: ED Otitis Externa Follow-Up: [facility] [place] [Provider Group] Comments: Continue to use the Cortisporin otic. Increase the use to 4 times per day and remove the packing from the ear tomorrow. If you do not have substantial improvement in the amount of swelling follow-up with [facility].
[2020-01-07 13:36] VITALS: BP 150/65
== END 2020-01-07 13:36 | disposition home or self-care (01) ==
LOC: ED 12:47
DX: H60.502 Unspecified acute noninfective otitis externa, left ear (principal); H91.93 Unspecified hearing loss, bilateral; I10 Essential (primary) hypertension; E10.9 Type 1 diabetes mellitus without complications; I48.91 Unspecified atrial fibrillation; Z79.01 Long term (current) use of anticoagulants
CPT/HCPCS: 99282; 99284

== ENCOUNTER 2020-01-14 13:24 | Outpatient (CLI) | payer MEDICARE ==
[2020-01-14 19:04] LABS: INR 2.3 (0.8-1.2); PT - PROTHROMBIN TIME 24.5 secs (9.9-12.6)
== END 2020-01-14 23:59 | disposition home or self-care (01) ==
LOC: LAB.WCP 13:24
PROVIDERS: ATTEND Family Medicine
DX: Z79.01 Long term (current) use of anticoagulants (principal)
CPT/HCPCS: 36415; 85610

== ENCOUNTER → 2020-01-27 | Outpatient (CLI) | payer MEDICARE ==
[2020-01-27 18:16] LABS: INR 2.2 (0.8-1.2); PT - PROTHROMBIN TIME 23.7 secs (9.9-12.6)
== END ==
LOC: LAB.WCP 15:23
PROVIDERS: ATTEND Family Medicine
DX: Z79.01 Long term (current) use of anticoagulants (principal)
CPT/HCPCS: 36415; 85610

== ENCOUNTER → 2020-02-11 | Outpatient (CLI) | payer MEDICARE ==
[2020-02-11 18:58] LABS: INR 2.2 (0.8-1.2); PT - PROTHROMBIN TIME 23.6 secs (9.9-12.6)
== END ==
LOC: LAB.WCP 14:12
PROVIDERS: ATTEND Family Medicine
DX: Z79.01 Long term (current) use of anticoagulants (principal)
CPT/HCPCS: 36415; 85610

== ENCOUNTER 2020-07-23 06:08 | Outpatient (CLI) | payer OTHER, MEDICARE | END 2020-07-23 06:09 | disposition critical access hospital (66) | LOC: EMS 06:08 | PROVIDERS: ATTEND Surgery | DX: R10.13 Epigastric pain (principal) | CPT/HCPCS: A0425; A0429 ==

== ENCOUNTER 2020-07-23 06:27 | Emergency (ER) | payer MEDICARE, OTHER ==
[2020-07-23] MEDS ORDERED: MAG HYDROX/AL HYDROX/SIMETH 30 ML UDC PO STA (06:39)
[2020-07-23] MEDS ORDERED: FAMOTIDINE 20 MG/2 ML VIAL IVP STA (06:39)
--- NOTE | 2020-07-23 06:40 | ED Physician Documentation ---
PD HPI ABD PAIN - Stated complaint Stated Complaint: AB PX - Chief complaint Chief Complaint: Abd Pain - History obtained from History obtained from: Patient, EMS - History of Present Illness Timing - onset: How many days ago (2-3) Timing - duration: Days (3) Timing - details: Gradual onset, Intermittant (was hurting last evening and then decreased before bed. Awoke about 3 am with it again. Has had it intermittently the past few days.) Quality: Aching, Pain. No: Fullness/distended Location: RUQ, Epigastric Radiation: Other (mid back) Improved by: Eating. No: Vomiting (vomited couple of times yesterday) Worsened by: No: Eating Associated symptoms: Nausea, Vomiting (couple of times), Dysuria (frequqncy mainly). No: Fever, Diarrhea, Constipation, Melena, Near syncope / syncope, Loss of appetite Similar symptoms before: Has not had sx before Recently seen: Not recently seen Review of Systems Constitutional: denies: Fever, Chills Nose: denies: Rhinorrhea / runny nose, Congestion Throat: denies: Sore throat Cardiac: reports: Palpitations (intermittently due to atrial fib). denies: Chest pain / pressure Respiratory: denies: Dyspnea, Cough GI: reports: Abdominal Pain, Nausea, Vomiting. denies: Abdominal Swelling, Constipation, Diarrhea, Bloody / black stool : denies: Dysuria, Frequency Skin: denies: Rash Musculoskeletal: denies: Extremity swelling Neurologic: reports: Generalized weakness. denies: Focal weakness, Numbness, Near syncope PD PAST MEDICAL HISTORY - Past Medical History Cardiovascular: Hypertension, Atrial fibrillation (intermittent) Respiratory: Sleep apnea Endocrine/Autoimmune: Type 1 diabetes GI: GERD : None HEENT: None Psych: None Musculoskeletal: Osteoarthritis, Gout Derm: None - Past Surgical History Past Surgical History: Yes General: Cholecystectomy Ortho: Spine surgery HEENT: Other - Present Medications Home Medications: Ambulatory Orders Medication Instructions Recorded Confirmed Metformin HCl [Glucophage Xr] 1,000 mg PO BID 10/02/13 03/20/19 Omeprazole 20 mg PO BID 10/02/13 03/20/19 Warfarin [Coumadin] 5 mg PO 1400 10/02/13 03/20/19 diltiaZEM CD [Cardizem Cd] 240 mg PO BID 10/02/13 03/20/19 Cholecalciferol (Vitamin D3) 1,000 unit PO BID 10/05/13 03/20/19 [Vitamin D-3] lisinopriL [Zestril] 10 mg PO DAILY 10/05/13 03/20/19 Triamcinolone 0.1% Oint [Kenalog 1 applic TD BID 12/03/15 03/20/19 0.1% Oint] Atorvastatin Calcium 40 mg PO DAILY 01/24/16 03/20/19 Insulin Glargine,Hum.rec.anlog 30 unit SQ DAILY 01/24/16 03/20/19 [Lantus] Metoprolol Tartrate 12.5 mg PO BID 01/24/16 03/20/19 Meclizine [Antivert] 12.5 mg PO Q6H PRN #10 tablet 10/22/16 03/20/19 Senna [Senokot] 2 tab PO DAILY 03/09/17 03/20/19 Carbidopa/Levodopa 1 each PO QID 01/05/20 01/05/20 [Carbidopa-Levodopa 25-250 Tab] Docusate Sodium [Dss] 250 mg PO 01/05/20 Ergocalciferol (Vitamin D2) 1,250 mcg PO ONCE 01/05/20 01/05/20 [Drisdol] Neomycin/Polymyx/Hc Otic Drops 4 drops OT TID 10 Days #1 bottle 01/05/20 [Cortisporin Ear Susp] methocarbamoL [Methocarbamol] 500 mg PO DAILY 01/05/20 01/05/20 - Allergies Allergies/Adverse Reactions: Allergies Allergy/AdvReac Type Severity Reaction Status Date / Time No Known Drug Allergies Allergy Verified 01/07/20 12:57 - Social History Does the pt smoke?: No Smoking Status: Never smoker Does the pt drink ETOH?: No Does the pt have substance abuse?: No - Immunizations Immunizations are current?: Yes - POLST Patient has POLST: No PD ED PE NORMAL - Vitals Vital signs reviewed: Yes - General General: Alert and oriented X 3, Well developed/nourished, Other (baseline tremor c/w Parkinsons. ) - HEENT HEENT: Pharynx benign - Neck Neck: Supple, no meningeal sign, No adenopathy - Cardiac Cardiac: No murmur. No: RRR (sound irregular but good rate. ) - Respiratory Respiratory: Clear bilaterally - Abdomen Abdomen: No organomegaly, Other (tender in the epigastric area without guarding nor percussion tenderness. Lower abd not tender. No rebound. ). No: Normal bowel sounds (diminished) - Male Male : Deferred - Rectal Rectal: Deferred - Back Back: No CVA TTP - Derm Derm: Normal color - Extremities Extremities: No tenderness to palpate, Normal ROM s pain, No edema, No calf tenderness / cord - Neuro Neuro: Alert and oriented X 3, No motor deficit, Normal speech Results - Vitals Vitals: Oxygen O2 Source Room air PD MEDICAL DECISION MAKING - ED course Complexity details: considered differential (Seems likely gastritis or ulcer. Consider glalbladder, pancreatitis, diverticulitis of transverse colon, vascular/aortic, other causes. Will get labs and CT. Try antacids. ), d/w patient
[2020-07-23] MEDS ORDERED: IOVERSOL 320 100 ML VIAL IVP ONE ×2 (06:58→07:41)
[2020-07-23 07:07] LABS: ALBUMIN 3.1 g/dL (3.2-5.5); ALBUMIN/GLOBULIN RATIO 1.2 (1.0-2.2); ALKALINE PHOSPHATASE 74 IU/L (42-121); ALT ALANINE AMINOTRANSFERASE < 10 IU/L (10-60); AST ASPARTATE AMINOTRANSFERASE 27 IU/L (10-42); BILIRUBIN,TOTAL 0.9 mg/dL (0.2-1.0); BUN - BLOOD UREA NITROGEN 27 mg/dL (6-20); CALCIUM 8.3 mg/dL (8.5-10.3); CARBON DIOXIDE - CO2 19 mmol/L (21-32); CHLORIDE 107 mmol/L (101-111); CREATININE 1.9 mg/dL (0.6-1.2); GLUCOSE 136 mg/dL (70-100); LIPASE 48 U/L (22-51); SODIUM 136 mmol/L (135-145); TOTAL PROTEIN 5.7 g/dL (6.7-8.2)
[2020-07-23 07:11] VITALS: BP 188/115
[2020-07-23 07:12] LABS: BASOPHILS # (AUTO) 0.1 10^3/uL (0.0-0.1); BASOPHILS % (AUTO) 0.4 %; EOSINOPHILS # (AUTO) 0.1 10^3/uL (0.0-0.7); EOSINOPHILS % (AUTO) 0.6 %; HGB - HEMOGLOBIN 13.4 g/dL (14.0-18.0); LYMPHOCYTES # (AUTO) 1.2 10^3/uL (1.5-3.5); LYMPHOCYTES % (AUTO) 9.6 %; MEAN CORPUSCULAR HEMOGLOBIN 32.4 pg (27.0-31.0); MEAN CORPUSCULAR HGB CONC 32.9 g/dL (32.0-36.0); MEAN CORPUSCULAR VOLUME 98.5 fL (80.0-94.0); MEAN PLATELET VOLUME 11.1 fL (7.4-11.4); MONOCYTES # (AUTO) 0.9 10^3/uL (0.0-1.0); MONOCYTES % (AUTO) 7.5 %; NEUTROPHILS # (AUTO) 10.2 10^3/uL (1.5-6.6); NEUTROPHILS % (AUTO) 81.5 %; PLT - PLATELET COUNT 190 10^3/uL (130-450); RED BLOOD COUNT 4.13 10^6/uL (4.70-6.10); RED CELL DISTRIBUTION WIDTH 12.6 % (12.0-15.0); WHITE BLOOD COUNT 12.5 x10^3/uL (4.8-10.8)
[2020-07-23 07:29] LABS: BILIRUBIN,URINE NEGATIVE (NEGATIVE); CLARITY,URINE CLEAR (CLEAR); GLUCOSE, URINE (UA) NEGATIVE (NEGATIVE); KETONES,URINE (UA) NEGATIVE (NEGATIVE); LEUKOCYTE ESTERASE, URINE NEGATIVE (NEGATIVE); NITRITE,URINE NEGATIVE (NEGATIVE); OCCULT BLOOD,URINE NEGATIVE (NEGATIVE); PROTEIN,URINE >=300 mg/dL (NEGATIVE); UROBILINOGEN,URINE 0.2 (NORMAL) E.U./dL (NORMAL)
--- NOTE | 2020-07-23 07:39 | ED Physician Documentation ---
ED Addendum - Addendum Addendum: 07/23/20 07:38 Signed out to me by Dr. Flores at 7 AM shift change. Briefly this is a 69-year-old gentleman with history of A. fib on Xarelto and remote cholecystectomy who presents with sudden onset epigastric pain at 3 AM. On my evaluation he had already received some Mylanta and Pepcid and declined further pain medication. He was minimally tender in the epigastrium. He appeared comfortable with course Parkinsonian tremor. Labs are notable for a white count of 12-1/2, his renal function is poor but basically at the baseline. Mild acidosis is also chronic. Lactate WNL. Coronary ischemia is considered but nonischemic EKG and negative troponin. 07/23/20 07:55 CT of the abdomen pelvis with IV contrast interpreted contemporaneously by me shows right lateral pannus hernia seen with normal-appearing large and small bowel, coronary artery calcifications, cardiomegaly, history of cholecystectomy, some thickening of the adrenal glands, renal cysts, scoliosis, diverticulosis without diverticulitis, large prostate and degenerative changes of the lumbar spine and hips without acute findings to explain upper abdominal pain. Urinalysis notable only for proteinuria. 07/23/20 08:14 On reexamination he was feeling well, still with mild pain but declined medications. On further history his physician had recommended he stop his omeprazole and now only takes it as needed. Suspect cutting back on the omeprazole was causative for this episode. He is comfortable with discharge. Diagnosis: 1. Upper abdominal pain 2. Gastritis Disposition: Discharged to home Condition: Stable
[2020-07-23 07:53] LABS: BACTERIA,URINE None Seen /HPF (None Seen); RBC,URINE None Seen /HPF (0-5); SQUAMOUS EPITHELIAL CELL,UR NONE SEEN (<= Few)
--- NOTE | 2020-07-23 07:53 | CT Report ---
PROCEDURE: Abdomen/Pelvis W INDICATIONS: Abdominal pain, acute, nonlocalized CONTRAST: IV CONTRAST: Optiray 320 ml: 100 PO CONTRAST: *NO PO CONTRAST TECHNIQUE: After the administration of nonionic IV contrast, 5 mm thick sections acquired from the diaphragms to the symphysis. 5 mm thick coronal and sagittal reformats were acquired. For radiation dose reducti on, the following was used: automated exposure control, adjustment of mA and/or kV according to sondra ent size. COMPARISON: 03/09/2017, 04/18/2014, 10/03/2013 FINDINGS: Image quality: Diagnostic, with note made of motion artifact. ABDOMEN: Lung bases: Lung bases are clear. Heart size is mildly enlarged. At least moderate coronary artery calcification can be seen. Solid organs: Liver and spleen are normal in size and enhancement. Gallbladder has been removed Bi liary system is non dilated. Pancreas enhances normally. There is generalized thickening of the dege nerative glands, yet without focal adrenal nodules. Kidneys demonstrate normal size and enhancement, without hydronephrosis. There is a water density cy st seen within the lateral right kidney that measures 2.1 cm. Smaller. Cysts are seen elsewhere, incl uding an exophytic cyst along the medial left kidney that measures 2 cm. Peritoneum and bowel: Bowel loops demonstrate normal wall thickness and caliber. No free fluid or a ir. Diverticulosis can be seen, without zee findings of active diverticulitis. Nodes and vessels: No retroperitoneal or mesenteric adenopathy by size criteria. Aorta and inferior vena cava are normal in size. Miscellaneous: There is a right basilar hernia seen, which contains nondilated small bowel and ascend ing colon. PELVIS: Genitourinary: Bladder wall thickness is normal. The prostate is prominent, measuring 5.7 cm transv ersely. Miscellaneous: No inguinal hernias or adenopathy. Bones: No suspicious bony lesions. No vertebral body compression fractures. Mild levoconvex scoliot ic curvature is seen. Degenerative changes are seen throughout, which are most prominent involving t he lumbar spine and the right hip. IMPRESSION: No imaging explanation is found for the patient's presenting symptoms. 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 Incidental note is made of: At least moderate coronary artery calcification Mild cardiomegaly Cholecystectomy Generalized thickening of the adrenal glands Simple appearing renal cysts Levoconvex lumbar scoliotic curvature. Diverticulosis can be seen, without zee findings of active diverticulitis. Prominent prostate Lumbar spine and right hip degenerative change Reviewed by: Ke Montemayor MD on 07/23/2020 6:51 AM [place] Approved by: Ke Montemayor MD on 07/23/2020 6:51 AM [facility] Station ID: [id number]
== END 2020-07-23 09:40 | disposition home or self-care (01) ==
LOC: EDUNIT# → ED 06:27
DX: K29.70 Gastritis, unspecified, without bleeding (principal); K46.9 Unspecified abdominal hernia without obstruction or gangrene; R35.0 Frequency of micturition; I48.91 Unspecified atrial fibrillation; Z79.01 Long term (current) use of anticoagulants; I10 Essential (primary) hypertension; E10.9 Type 1 diabetes mellitus without complications; G20 Parkinson's disease; Z90.49 Acquired absence of other specified parts of digestive tract
CPT/HCPCS: 36415; 74177; 80053; 81001; 83605; 83690; 84484; 85025; 93005; 96374; 99284; A9270; Q9967; 81003; 87086

== ENCOUNTER 2020-08-18 16:32 | Outpatient (CLI) | payer OTHER, MEDICARE | END 2020-08-18 16:33 | disposition home or self-care (01) | LOC: LAB 16:32 | PROVIDERS: ATTEND Psychiatry & Neurology Neurology | DX: Z51.81 Encounter for therapeutic drug level monitoring (principal) ==

== ENCOUNTER 2020-08-19 08:00 | Outpatient (CLI) | payer OTHER, MEDICARE ==
[2020-08-19 18:17] LABS: ALBUMIN 3.2 g/dL (3.2-5.5); ALKALINE PHOSPHATASE 58 IU/L (42-121); ALT ALANINE AMINOTRANSFERASE < 10 IU/L (10-60); AST ASPARTATE AMINOTRANSFERASE 19 IU/L (10-42); BILIRUBIN,DIRECT 0.2 mg/dL (0.1-0.5); BILIRUBIN,TOTAL 0.9 mg/dL (0.2-1.0); TOTAL PROTEIN 6.4 g/dL (6.7-8.2)
== END 2020-08-19 23:59 | disposition home or self-care (01) ==
LOC: LAB.N 08:00
PROVIDERS: ATTEND Psychiatry & Neurology Neurology
DX: Z51.81 Encounter for therapeutic drug level monitoring (principal)
CPT/HCPCS: 36415; 80076

== ENCOUNTER 2020-08-19 13:24 | Outpatient (CLI) | payer OTHER, MEDICARE | END 2020-08-19 13:25 | disposition home or self-care (01) | LOC: LAB.N 13:24 | PROVIDERS: ATTEND Psychiatry & Neurology Neurology | DX: Z53.9 Procedure and treatment not carried out, unspecified reason (principal) ==

== ENCOUNTER 2020-09-22 14:42 | Outpatient (CLI) | payer MEDICARE, OTHER | END 2020-09-22 14:43 | disposition EMS.NT | LOC: EMS 14:42 | DX: R53.1 Weakness (principal) ==

== ENCOUNTER 2020-09-25 14:10 | Outpatient (CLI) | payer OTHER | END 2020-09-25 14:11 | disposition critical access hospital (66) | LOC: EMS 14:10 | PROVIDERS: ATTEND Emergency Medicine | DX: R09.89 Other specified symptoms and signs involving the circulatory and respiratory systems (principal); R42 Dizziness and giddiness | CPT/HCPCS: A0425; A0429 ==

== ENCOUNTER 2020-09-25 14:33 | Inpatient (IN) | payer MEDICARE, OTHER ==
--- NOTE | 2020-09-25 14:53 | ED Physician Documentation ---
History of Present Illness - Stated complaint Stated Complaint: ABNORMAL HEART RATE - Chief complaint Chief Complaint: Neuro - History obtained from History obtained from: Patient, EMS - History of Present Illness Timing: Today Pain level max: 0 Pain level now: 0 - Additonal information Additional information: Is a 70-year-old male who presents to the emergency department today complaining of dizziness. He feels lightheaded and near syncopal. Nothing makes it better or worse. Has a history of Parkinson's disease and atrial fibrillation. He recently was started on entacapone for his Parkinson's in addition to carbidopa levodopa. He is also on several medications for his atrial fibrillation including carvedilol, Xarelto, amlodipine and diltiazem. Intermittent bradycardia with EMS down to the 30s. He states that the dizziness started after he was eating lunch today. Has had decreased appetite recently. No nausea or vomiting. No diarrhea or constipation. Worse with movement and better with rest. No falls, no head trauma. Review of Systems Ten Systems: 10 systems reviewed and negative Constitutional: denies: Fever, Chills Nose: denies: Rhinorrhea / runny nose Throat: denies: Sore throat Cardiac: denies: Chest pain / pressure Respiratory: denies: Cough GI: denies: Nausea, Vomiting, Diarrhea, Hematemesis, Bloody / black stool : denies: Dysuria Skin: denies: Rash Musculoskeletal: denies: Neck pain, Back pain PD PAST MEDICAL HISTORY - Past Medical History Past Medical History: Yes Cardiovascular: Hypertension, Atrial fibrillation (intermittent) Respiratory: Sleep apnea Neuro: Parkinson's Endocrine/Autoimmune: Type 1 diabetes GI: GERD : None HEENT: None Psych: None Musculoskeletal: Osteoarthritis, Gout Derm: None - Past Surgical History Past Surgical History: Yes General: Cholecystectomy Ortho: Spine surgery HEENT: Other - Present Medications Home Medications: Ambulatory Orders Medication Instructions Recorded Confirmed Metformin HCl [Glucophage Xr] 1,000 mg PO BID 10/02/13 09/25/20 Omeprazole 20 mg PO BID 10/02/13 09/25/20 diltiaZEM CD [Cardizem Cd] 240 mg PO BID 10/02/13 09/25/20 Cholecalciferol (Vitamin D3) 1,000 unit PO BID 10/05/13 09/25/20 [Vitamin D-3] Triamcinolone 0.1% Oint [Kenalog 1 applic TD BID 12/03/15 09/25/20 0.1% Oint] Atorvastatin Calcium 40 mg PO DAILY 01/24/16 09/25/20 Insulin Glargine,Hum.rec.anlog 30 unit SQ DAILY 01/24/16 09/25/20 [Lantus] Metoprolol Tartrate 12.5 mg PO BID 01/24/16 09/25/20 Meclizine [Antivert] 12.5 mg PO Q6H PRN #10 tablet 10/22/16 09/25/20 Senna [Senokot] 2 tab PO DAILY 03/09/17 09/25/20 Carbidopa/Levodopa 1 each PO QID 01/05/20 09/25/20 [Carbidopa-Levodopa 25-250 Tab] Docusate Sodium [Dss] 250 mg PO DAILY PRN 01/05/20 09/25/20 Ergocalciferol (Vitamin D2) 1,250 mcg PO ONCE 01/05/20 09/25/20 [Drisdol] Neomycin/Polymyx/Hc Otic Drops 4 drops OT TID 10 Days #1 bottle 01/05/20 09/25/20 [Cortisporin Ear Susp] methocarbamoL [Methocarbamol] 500 mg PO DAILY 01/05/20 09/25/20 Rivaroxaban [Xarelto] 20 mg PO QPM 07/23/20 09/25/20 Entacapone [Comtan] 1 tab PO DAILY 09/25/20 09/25/20 - Allergies Allergies/Adverse Reactions: Allergies Allergy/AdvReac Type Severity Reaction Status Date / Time No Known Drug Allergies Allergy Verified 09/25/20 14:51 - Social History Does the pt smoke?: No Smoking Status: Never smoker Does the pt drink ETOH?: No Does the pt have substance abuse?: No - Immunizations Immunizations are current?: Yes - POLST Patient has POLST: No PD ED PE NORMAL - Vitals Vital signs reviewed: Yes - General General: Alert and oriented X 3, No acute distress, Well developed/nourished - HEENT HEENT: Atraumatic, PERRL, Other (dry lips and tongue) - Neck Neck: Supple, no meningeal sign - Cardiac Cardiac: Other (irregularly irregular) - Respiratory Respiratory: No respiratory distress, Clear bilaterally - Abdomen Abdomen: Soft, Non tender, Non distended - Back Back: No spinal TTP - Derm Derm: Warm and dry, No rash - Extremities Extremities: No edema, No calf tenderness / cord - Neuro Neuro: Alert and oriented X 3 - Psych Psych: Normal mood, Normal affect Results - Vitals Vitals: Vital Signs - 24 hr 09/25/20 09/25/20 14:48 15:43 Temperature 36.5 C Heart Rate 63 97 Respiratory 18 20 Rate Blood Pressure 128/66 155/90 H O2 Saturation 100 97 Oxygen O2 Source Room air - EKG (time done) 1437 Rate: Rate (enter#) (54) Rhythm: Atrial fibrillation Force: Normal Intervals: Normal PA QRS: Normal Ischemia: Normal ST segments, Q waves (v1-2) - Labs Labs: Laboratory Tests 09/25/20 09/25/20 09/25/20 15:00 15:00 15:00 WBC 8.4 RBC 3.70 L Hgb 11.8 L Hct 36.3 L MCV 98.1 H MCH 31.9 H MCHC 32.5 RDW 13.2 Plt Count 206 MPV 11.4 Neut # (Auto) 6.3 Lymph # (Auto) 1.3 L Elbert # (Auto) 0.7 Eos # (Auto) 0.1 Baso # (Auto) 0.0 Absolute Nucleated RBC 0.00 Nucleated RBC % 0.0 Sodium 135 Potassium 5.0 Chloride 107 Carbon Dioxide 17 L Anion Gap 11.0 BUN 49 H Creatinine 2.6 H Estimated GFR (MDRD) 24 L Glucose 185 H Calcium 8.3 L Total Bilirubin 0.7 AST 12 ALT < 10 L Alkaline Phosphatase 45 Troponin I High Sens 7.3 B-Natriuretic Peptide Total Protein 5.9 L Albumin 3.3 Globulin 2.6 Albumin/Globulin Ratio 1.3 Lipase 43 Urine Color Urine Clarity Urine pH Ur Specific [place] Urine Protein Urine Glucose (UA) Urine Ketones Urine Occult Blood Urine Nitrite Urine Bilirubin Urine Urobilinogen Ur Leukocyte Esterase Urine RBC Urine WBC Ur Squamous Epith Cells Urine Bacteria Urine Casts Ur Microscopic Review Urine Culture Comments Nasal Adenovirus (PCR) Nasal B. parapertussis DNA (PCR) Nasal Coronavir 229E PCR Nasal Coronavir HKU1 PCR Nasal Coronavir NL63 PCR Nasal Coronavir OC43 PCR Nasal Enterovir/Rhinovir PCR Nasal Influenza B PCR Nasal Influenza A PCR Nasal Parainfluen 1 PCR Nasal Parainfluen 2 PCR Nasal Parainfluen 3 PCR Nasal Parainfluen 4 PCR Nasal RSV (PCR) Nasal B.pertussis DNA PCR Nasal C.pneumoniae (PCR) Ye Human Metapneumo PCR Nasal M.pneumoniae (PCR) Nasal SARS-CoV-2 (PCR) 09/25/20 09/25/20 09/25/20 15:00 15:45 15:45 WBC RBC Hgb Hct MCV MCH MCHC RDW Plt Count MPV Neut # (Auto) Lymph # (Auto) Elbert # (Auto) Eos # (Auto) Baso # (Auto) Absolute Nucleated RBC Nucleated RBC % Sodium Potassium Chloride Carbon Dioxide Anion Gap BUN Creatinine Estimated GFR (MDRD) Glucose Calcium Total Bilirubin AST ALT Alkaline Phosphatase Troponin I High Sens B-Natriuretic Peptide 271 H Total Protein Albumin Globulin Albumin/Globulin Ratio Lipase Urine Color YELLOW Urine Clarity CLEAR Urine pH 5.5 Ur Specific [place] >=1.030 H Urine Protein >=300 H Urine Glucose (UA) NEGATIVE Urine Ketones NEGATIVE Urine Occult Blood NEGATIVE Urine Nitrite NEGATIVE Urine Bilirubin NEGATIVE Urine Urobilinogen 0.2 (NORMAL) Ur Leukocyte Esterase NEGATIVE Urine RBC 0-5 Urine WBC 0-3 Ur Squamous Epith Cells FEW Squamous Urine Bacteria Rare Urine Casts 0-2 Fine Granular Ur Microscopic Review INDICATED Urine Culture Comments NOT INDICATED Nasal Adenovirus (PCR) NOT DETECTED Nasal B. parapertussis DNA (PCR) NOT DETECTED Nasal Coronavir 229E PCR NOT DETECTED Nasal Coronavir HKU1 PCR NOT DETECTED Nasal Coronavir NL63 PCR NOT DETECTED Nasal Coronavir OC43 PCR NOT DETECTED Nasal Enterovir/Rhinovir PCR NOT DETECTED Nasal Influenza B PCR NOT DETECTED Nasal Influenza A PCR NOT DETECTED Nasal Parainfluen 1 PCR NOT DETECTED Nasal Parainfluen 2 PCR NOT DETECTED Nasal Parainfluen 3 PCR NOT DETECTED Nasal Parainfluen 4 PCR NOT DETECTED Nasal RSV (PCR) NOT DETECTED Nasal B.pertussis DNA PCR NOT DETECTED Nasal C.pneumoniae (PCR) NOT DETECTED Ye Human Metapneumo PCR NOT DETECTED Nasal M.pneumoniae (PCR) NOT DETECTED Nasal SARS-CoV-2 (PCR) NOT DETECTED - Rads (name of study) cxr Radiology: Prelim report reviewed, EMP read contemporaneously, See rad report (Mild cardiomegaly. No acute cardiopulmonary disease. ) head Ct Radiology: Prelim report reviewed, EMP read contemporaneously, See rad report (no acute intracranial abnormality) PD MEDICAL DECISION MAKING - ED course Complexity details: reviewed results, re-evaluated patient, considered differential (No ST elevation [place], no aortic dissection, no PE, no tension pneumothorax, no aortic aneurysm), d/w patient ED course: 70-year-old male with acute renal insufficiency, uremia. Feels lightheaded and dizzy. Has intermittent bradycardia. Is on several rate lowering medications for his atrial fibrillation. Negative troponin. No evidence of pulmonary edema. Head CT was ordered given his dizziness, lives alone and has Parkinson's. Unknown if he has fallen. He states that he has fallen in the past, doesn't know if it was recent. The intermittent bradycardia is likely secondary to medications. He does not seem particularly symptomatic with these however. We will continue to rehydrate him and ensure that his creatinine improves closer to his baseline of 1.5 overnight. Discussed the case with Dr. Cantu, hospitalist who accepts This document was made in part using voice recognition software. While efforts are made to proofread this document, sound alike and grammatical errors may occur. Departure - Departure Disposition: ED Place in Observation Clinical Impression: Uremia, Dizzy, Near syncope, Dehydration Acute renal failure Qualifiers: Acute renal failure type: unspecified Qualified Code(s): N17.9 - Acute kidney failure, unspecified Atrial fibrillation Qualifiers: Atrial fibrillation type: unspecified Qualified Code(s): I48.91 - Unspecified atrial fibrillation Condition: Stable
[2020-09-25 15:06] LABS: BASOPHILS % (AUTO) 0.5 %; EOSINOPHILS # (AUTO) 0.1 10^3/uL (0.0-0.7); EOSINOPHILS % (AUTO) 1.1 %; HCT - HEMATOCRIT 36.3 % (42.0-52.0); HGB - HEMOGLOBIN 11.8 g/dL (14.0-18.0); LYMPHOCYTES # (AUTO) 1.3 10^3/uL (1.5-3.5); MEAN CORPUSCULAR HEMOGLOBIN 31.9 pg (27.0-31.0); MEAN CORPUSCULAR HGB CONC 32.5 g/dL (32.0-36.0); MEAN CORPUSCULAR VOLUME 98.1 fL (80.0-94.0); MEAN PLATELET VOLUME 11.4 fL (7.4-11.4); MONOCYTES # (AUTO) 0.7 10^3/uL (0.0-1.0); MONOCYTES % (AUTO) 8.7 %; NEUTROPHILS # (AUTO) 6.3 10^3/uL (1.5-6.6); NEUTROPHILS % (AUTO) 74.5 %; PLT - PLATELET COUNT 206 10^3/uL (130-450); RED CELL DISTRIBUTION WIDTH 13.2 % (12.0-15.0); WHITE BLOOD COUNT 8.4 x10^3/uL (4.8-10.8)
--- NOTE | 2020-09-25 15:22 | XRAY Report ---
PROCEDURE: Chest 1 View X-Ray INDICATIONS: Chest Pain TECHNIQUE: One view of the chest was acquired. COMPARISON: Chest x-ray 2 view, 04/17/2014. FINDINGS: Surgical changes and devices: None. Lungs and pleura: No pleural effusions or pneumothorax. Lungs are clear. Mediastinum: Mediastinal contours appear normal. Heart size is increased. Bones and chest wall: No suspicious bony lesions. Overlying soft tissues appear unremarkable. IMPRESSION: Mild cardiomegaly. No acute cardiopulmonary disease. Reviewed by: Breanne Kwan MD on 09/25/2020 3:20 PM PST Approved by: Breanne Kwan MD on 09/25/2020 3:20 PM PST Station ID: [id number]
[2020-09-25 15:26] LABS: ALBUMIN 3.3 g/dL (3.2-5.5); ALBUMIN/GLOBULIN RATIO 1.3 (1.0-2.2); ALKALINE PHOSPHATASE 45 IU/L (42-121); ALT ALANINE AMINOTRANSFERASE < 10 IU/L (10-60); AST ASPARTATE AMINOTRANSFERASE 12 IU/L (10-42); BILIRUBIN,TOTAL 0.7 mg/dL (0.2-1.0); BUN - BLOOD UREA NITROGEN 49 mg/dL (6-20); CALCIUM 8.3 mg/dL (8.5-10.3); CARBON DIOXIDE - CO2 17 mmol/L (21-32); CHLORIDE 107 mmol/L (101-111); CREATININE 2.6 mg/dL (0.6-1.2); GFR - MDRD 24 (>89); GLUCOSE 185 mg/dL (70-100); LIPASE 43 U/L (22-51); SODIUM 135 mmol/L (135-145); TOTAL PROTEIN 5.9 g/dL (6.7-8.2)
[2020-09-25] MEDS ORDERED: SODIUM CHLORIDE 0.9% 1,000 ML IV STA ×2 (15:27)
[2020-09-25 15:50] LABS: BILIRUBIN,URINE NEGATIVE (NEGATIVE); CLARITY,URINE CLEAR (CLEAR); GLUCOSE, URINE (UA) NEGATIVE (NEGATIVE); KETONES,URINE (UA) NEGATIVE (NEGATIVE); LEUKOCYTE ESTERASE, URINE NEGATIVE (NEGATIVE); NITRITE,URINE NEGATIVE (NEGATIVE); OCCULT BLOOD,URINE NEGATIVE (NEGATIVE); PH,URINE 5.5 PH (5.0-7.5); PROTEIN,URINE >=300 mg/dL (NEGATIVE); UROBILINOGEN,URINE 0.2 (NORMAL) E.U./dL (NORMAL)
[2020-09-25 16:07] LABS: BACTERIA,URINE Rare /HPF (None Seen); CASTS, URINE 0-2 Fine Granular /LPF; RBC,URINE 0-5 /HPF (0-5); SQUAMOUS EPITHELIAL CELL,UR FEW Squamous (<= Few); WBC,URINE 0-3 /HPF (0-3)
--- NOTE | 2020-09-25 16:16 | CT Report ---
PROCEDURE: HEAD WO INDICATIONS: dizzy, on xarelto, history of falls. TECHNIQUE: Noncontrast 4.5 mm thick angled axial sections acquired from the foramen magnum to the vertex. For r adiation dose reduction, the following was used: automated exposure control, adjustment of mA and/or kV according to patient size. COMPARISON: None. FINDINGS: Image quality: Excellent. CSF spaces: Basal cisterns are patent. No extra-axial fluid collections. Ventricles are normal in size and shape. Brain: No midline shift. No intracranial masses or hemorrhage. Guillory-white matter interface is norm al. Skull and face: Calvarium and visualized facial bones are intact, without suspicious lesions. Sinuses: Visualized sinuses and mastoids are clear. IMPRESSION: No acute intracranial abnormality. Reviewed by: Faby Tony MD on 09/25/2020 3:14 PM [facility] Approved by: Faby Tony MD on 09/25/2020 3:14 PM [facility] Station ID: [id number]
[2020-09-25] MEDS ORDERED: SODIUM CHLORIDE FLUSH 0.9% 10 ML SYRINGE IVP PRN (16:26)
[2020-09-25] MEDS ORDERED: DOCUSATE SODIUM 250 MG CAPSULE PO PRN (16:29)
[2020-09-25] MEDS ORDERED: MECLIZINE 12.5 MG TABLET PO PRN (16:29)
[2020-09-25 16:39] LABS: B. PARAPERTUSSIS- RESP PCR PAN NOT DETECTED; B. PERTUSSIS- RESP PCR PANEL NOT DETECTED; C. PNEUMONIAE- RESP PCR PANEL NOT DETECTED; CORONAVIRUS 229E-RESP PCR NOT DETECTED; CORONAVIRUS HKU1-RESP PCR NOT DETECTED; CORONAVIRUS NL63-RESP PCR NOT DETECTED; CORONAVIRUS OC43-RESP PCR NOT DETECTED; HUMAN METAPNEUMOVIRUS NOT DETECTED; INFLUENZA A- RESP PCR PANEL NOT DETECTED; INFLUENZA B - RESP PCR PANEL NOT DETECTED; PARAINFLUENZA VIRUS 1 NOT DETECTED; PARAINFLUENZA VIRUS 2 NOT DETECTED; PARAINFLUENZA VIRUS 3 NOT DETECTED; PARAINFLUENZA VIRUS 4 NOT DETECTED; RHINOVIRUS/ENTEROVIRUS NOT DETECTED; RSV- RESP PCR PANEL NOT DETECTED; SARS-CoV-2 -RESP PCR PANEL NOT DETECTED
[2020-09-25 16:40] LABS: M. PNEUMONIAE- RESP PCR PANEL NOT DETECTED
[2020-09-25] MEDS: SODIUM CHLORIDE 0.9% 1,000 ML IV SCH (17:42)
[2020-09-25] MEDS: SODIUM CHLORIDE FLUSH 0.9% 10 ML SYRINGE IVP SCH (17:42)
[2020-09-25] MEDS: RIVAROXABAN 10 MG TABLET PO SCH (17:48)
--- NOTE | 2020-09-25 19:28 | HISTORY & PHYSICAL EXAMINATION ---
Chief Complaint - Chief Complaint Chief Complaint: light-headed, near-syncope, THOMAS History of Present Illness - Admitted From Admitted From:: [facility] ED - History Obtained From Records Reviewed: yes History obtained from: chart Exam Limitations: hard of hearing - History of Present Illness HPI Comment/Other: This HPI was obtained from the ED physicians H&P because the patient is very hard of hearing. It is reported that the patient presented to the ED via EMS with complaint of dizziness. He has history of Parkinson's disease and atrial fibrillation. He was recently started on entacapone for his Parkinson's in addition to carbidopa/levodopa. He was also noted to be intermittently bradycardic on the way to the hospital with heart rates dropping to as low as 30s. He is on carvedilol, amlodipine and diltiazem. His dizziness started after lunch today. It is worse with movement and better at rest. Currently he is resting comfortably in bed. He denies chest pain, dyspnea, vomiting, fever or chills. He reports some abdominal pain. He has been feeling an urge to urinate and also also have a bowel movement but has not been able to so far. He was admitted for further work-up and treatment. History - Past Medical History Cardiovascular: reports: Hypertension, Atrial fibrillation Respiratory: reports: Sleep apnea Neuro: reports: Parkinson's Endocrine/Autoimmune: reports: Type 2 diabetes GI: reports: GERD : reports: None HEENT: reports: None Psych: reports: None Musculoskeletal: reports: Osteoarthritis, Gout Derm: reports: None MRSA Hx?: No - Past Surgical History General: reports: Cholecystectomy Ortho: reports: Spine surgery HEENT: reports: Other - Family & Social History Family History Comment/Other: Patient does not recall what his mother from. His father from complications of pneumonia. Records indicate the patient does not have any family history of coronary artery disease. Living arrangement: At home Living Situation: Alone Social History Notes: He does not smoke tobacco products, use recreational substances or alcohol. - POLST Patient has POLST: No POLST Status: Full Code Meds/Allgy - Home Medications Home Medications: Ambulatory Orders Medication Instructions Recorded Confirmed Metformin HCl [Glucophage Xr] 1,000 mg PO BID 10/02/13 09/25/20 Omeprazole 20 mg PO BID 10/02/13 09/25/20 diltiaZEM CD [Cardizem Cd] 240 mg PO BID 10/02/13 09/25/20 Cholecalciferol (Vitamin D3) 1,000 unit PO BID 10/05/13 09/25/20 [Vitamin D-3] Triamcinolone 0.1% Oint [Kenalog 1 applic TD BID 12/03/15 09/25/20 0.1% Oint] Atorvastatin Calcium 40 mg PO DAILY 01/24/16 09/25/20 Insulin Glargine,Hum.rec.anlog 30 unit SQ DAILY 01/24/16 09/25/20 [Lantus] Metoprolol Tartrate 12.5 mg PO BID 01/24/16 09/25/20 Meclizine [Antivert] 12.5 mg PO Q6H PRN #10 tablet 10/22/16 09/25/20 Senna [Senokot] 2 tab PO DAILY 03/09/17 09/25/20 Carbidopa/Levodopa 1 each PO QID 01/05/20 09/25/20 [Carbidopa-Levodopa 25-250 Tab] Docusate Sodium [Dss] 250 mg PO DAILY PRN 01/05/20 09/25/20 Ergocalciferol (Vitamin D2) 1,250 mcg PO ONCE 01/05/20 09/25/20 [Drisdol] Neomycin/Polymyx/Hc Otic Drops 4 drops OT TID 10 Days #1 bottle 01/05/20 09/25/20 [Cortisporin Ear Susp] methocarbamoL [Methocarbamol] 500 mg PO DAILY 01/05/20 09/25/20 Rivaroxaban [Xarelto] 20 mg PO QPM 07/23/20 09/25/20 Entacapone [Comtan] 1 tab PO DAILY 09/25/20 09/25/20 - Allergies Allergies/Adverse Reactions: Allergies Allergy/AdvReac Type Severity Reaction Status Date / Time No Known Drug Allergies Allergy Verified 09/25/20 14:51 Review of Systems - Constitutional Constitutional: denies: Fatigue, Fever, Chills - Eyes Eyes: denies: Pain, Vision loss - Ears, Nose & Throat Ears, Nose & Throat: reports: Hearing loss, Hearing aids - Cardiovascular Cariovascular: reports: Lightheadedness. denies: Irregular heart rate, Palpitations, Chest pain, Edema, Exertional dyspnea, Decr. exercise tolerance - Respiratory Respiratory: denies: Cough, Wheezing, SOB at rest, SOB with exertion - Gastrointestinal Gastrointestinal: reports: Abdominal pain. denies: Abdominal distention, Constipation, Diarrhea, Change in bowel habits, Nausea, Vomiting, Coffee grounds emesis, Reflux/heartburn - Genitourinary Genitourinary: denies: Dysuria, Frequency, Urgency, Hematuria, Incontinence, Flank pain - Musculoskeletal Musculoskeletal: denies: Muscle pain, Back pain, Muscle aches, Stiffness - Integumentary Integumentary: denies: Rash, Pruritis, Lesions, Dryness - Neurological Neurological: reports: Dizziness. denies: Headache - Psychiatric Psychiatric: denies: Depression, Anxiety - Endocrine Endocrine: denies: Polyuria, Polydypsia - Hematologic/Lymphatic Hematologic/Lymphatic: denies: Anemia, Bruising Prior Level of Functionality: He is normally independent of activities of daily living. Exam - Vital Signs Vital Signs: Vital Signs x48h Temp Pulse Pulse Resp BP BP Pulse Ox 09/25/20 18:00 36.8 C 104 H 20 153/91 H 98 09/25/20 17:07 36.6 C 60 18 149/83 H 99 09/25/20 15:43 97 20 155/90 H 97 09/25/20 14:48 36.5 C 63 18 128/66 100 - Physical Exam General Appearance: positive: No acute distress, Alert, Other (Resting tremor du e to Parkinson's) Eyes Bilateral: positive: PERRL, EOMI ENT: positive: No signs of dehydration Neck: positive: No JVD, Trachea midline Respiratory: positive: Chest non-tender, No respiratory distress, Breath sounds nml. negative: Wheezes, Rales, Rhonchi Cardiovascular: positive: Irregularly irregular Abdomen: positive: Non-tender, No organomegaly, Nml bowel sounds, No distention. negative: Guarding, Rebound Back: positive: Nml inspection Skin: positive: Color nml, Warm, Dry Extremities: positive: Non-tender, Full ROM, Nml appearance, No pedal edema Neurologic/Psychiatric: positive: Oriented x3, Mood/affect nml, Other (resting tremor) Conclusion/Plan - Problem List (1) Thycd-yy-hewuxrp kidney injury Conclusion/Plan: He is receiving IV hydration with normal saline at 150 mils per hour. He was given 1 L bolus of normal saline in the ED. Patient's creatinine was 2.6. His baseline creatinine is normally 1.6. (2) Near syncope Conclusion/Plan: Etiology undetermined. This could be secondary to medication versus cardiac cause versus other Orthostatic vitals were negative Patient's amlodipine was discontinued. Diltiazem CD dose was decreased by 50% to 120 mg p.o. daily Patient receiving IV hydration with normal saline at 150ml/hr. Will decrease to 100ml/hr Will obtain a 2D echocardiogram when possible. (3) Diabetes mellitus Conclusion/Plan: We will hold patient's Metformin. On Lantus 30 units subcu daily. Sliding scale insulin. Accu-Cheks before every meal and at bedtime. (4) Hyperlipidemia Conclusion/Plan: On atorvastatin 40 mg p.o. nightly (5) Parkinson disease Conclusion/Plan: On carbidopa/levodopa 25-250 tab. 1 tablet p.o. 4 times daily. On entacapone 200 mg p.o. daily (6) Hypertension Conclusion/Plan: SHEENT amlodipine helped. Currently on diltiazem CD 120 mg p.o. daily Metoprolol 12.5mg po bid (7) GERD (gastroesophageal reflux disease) Conclusion/Plan: Today 10 mg IV twice daily ordered. (8) Atrial fibrillation Conclusion/Plan: On diltiazem CD 120 mg p.o. daily. On metoprolol tartrate 12.5 mg p.o. twice daily On Xarelto 20 mg p.o. daily at dinner. Qualifiers: Atrial fibrillation type: unspecified Qualified Code(s): I48.91 - Unspecified atrial fibrillation - Lab Results Fish Bones: 09/25/20 15:00 09/25/20 15:00 Core Measures - Anticipated LOS I expect patient to be DC'd or transferred within 96 hours.: Yes - DVT/VTE - Prophylaxis VTE/DVT Device ordered at admit?: Yes VTE/DVT Prophylaxis med ordered at admit?: Yes
[2020-09-25] MEDS ORDERED: FAMOTIDINE 20 MG/2 ML VIAL IVP SCH (21:00)
[2020-09-25] MEDS: CARBIDOPA PO SCH (22:27)
[2020-09-25] MEDS: LEVODOPA PO SCH (22:27)
[2020-09-25] MEDS: INSULIN ASPART 300 UNIT/3 ML PEN SUBQ SCH (22:28)
[2020-09-25] MEDS: METOPROLOL TARTRATE 25 MG TABLET PO SCH (22:32)
[2020-09-25] MEDS: FAMOTIDINE 20 MG TABLET PO SCH (22:32)
[2020-09-25] MEDS: NEOMYCIN/POLYMYX/HC OTIC DROPS EACHEAR SCH (22:42)
[2020-09-25] MEDS: TRIAMCINOLONE 0.1% OINT 15 GM TUBE TOP SCH (22:50)
[2020-09-26] MEDS: SODIUM CHLORIDE FLUSH 0.9% 10 ML SYRINGE IVP SCH ×3 (02:28→16:54)
[2020-09-26] MEDS: SODIUM CHLORIDE 0.9% 1,000 ML IV SCH ×2 (03:16→14:28)
[2020-09-26] MEDS: METOPROLOL TARTRATE 25 MG TABLET PO SCH ×2 (05:22→21:25)
[2020-09-26 05:24] LABS: CALCIUM 8.5 mg/dL (8.5-10.3); CREATININE 2.2 mg/dL (0.6-1.2); POTASSIUM 4.7 mmol/L (3.5-5.0)
[2020-09-26] MEDS: NEOMYCIN/POLYMYX/HC OTIC DROPS EACHEAR SCH ×3 (05:28→21:35)
[2020-09-26] MEDS ORDERED: BENZOCAINE/MENTHOL LOZENGE MM PRN (05:34)
--- NOTE | 2020-09-26 08:50 | PROVIDER PROGRESS NOTE ---
Assessment/Plan - Problem List (1) Vuqru-ro-kvsmwzd kidney injury Assessment/Plan: He is receiving IV hydration with normal saline. He was given 1 L bolus of normal saline in the ED. Patient's creatinine still elevated. His baseline creatinine is normally 1.6. Will admit to Inpatient status and continue current W/U and meds. (2) Urinary retention After each urination, the [employer] bladder scanned him and he had greater than 150 cc each time. We will start empiric treatment for BPH using Flomax (3) Near syncope Conclusion/Plan: This could be secondary to medication versus cardiac cause versus other. Orthostatic vitals were negative so far Patient's amlodipine was discontinued. Diltiazem CD dose was decreased by 50% to 120 mg p.o. daily because of patricia. Patient receiving IV hydration with normal saline at 150ml/hr. Will decrease r ate. Continue telemetry Awaiting a complete Echocardiogram. (4) Atrial fibrillation Conclusion/Plan: On diltiazem CD 120 mg p.o. daily. On metoprolol tartrate 12.5 mg p.o. twice daily Continue Xarelto 20 mg p.o. daily at dinner. (5) Diabetes mellitus Conclusion/Plan: We will hold patient's Metformin due to THOMAS On Lantus 30 units subcu daily. Sliding scale insulin. Accu-Cheks before every meal and at bedtime. (6) Hyperlipidemia Conclusion/Plan: On atorvastatin 40 mg p.o. nightly (7) Parkinson disease Conclusion/Plan: On carbidopa/levodopa 25-250 tab. 1 tablet p.o. 4 times daily. On entacapone 200 mg p.o. daily, will order Pt's own med, if it can be brought in. Will get PT eval. If he has dizziness during driving a car, will report this to DMV and advise no further driving or be retested. (8) Hypertension Conclusion/Plan: Amlodipine on hold since he is on another Ca-channel samuel Currently on diltiazem CD 120 mg p.o. daily Metoprolol 12.5mg po bid (9) GERD (gastroesophageal reflux disease) Conclusion/Plan: Today 10 mg IV twice daily ordered. (10) [place] Communication was with writing - Current Meds Current Meds: Current Medications Generic Name Dose Route Start Last Admin Trade Name Freq PRN Reason Stop Dose Admin Famotidine 20 mg 09/25/20 21:46 09/25/20 22:32 Famotidine 20 Mg Tablet PO 20 mg BID PEREZ Administration Sodium Chloride 1,000 mls @ 100 mls/hr 09/25/20 17:00 09/26/20 03:16 Normal Saline 0.9% IV 100 mls/hr .Q10H PEREZ Administration Insulin Aspart 1 - 9 unit 09/25/20 21:00 09/25/20 22:28 Insulin Aspart 300 Unit/3 Ml Pen SUBQ Not Given 0800,1200,1700,2100 [facility] Protocol Metoprolol Tartrate 12.5 mg 09/25/20 21:00 09/26/20 05:22 Metoprolol Tartrate 25 Mg Tablet PO 12.5 mg BID PEREZ Administration Neomycin/Polymyxin/Hydrocortisone 4 drops 09/25/20 22:00 09/26/20 05:28 Neomycin/Polymyx/Hc Otic Drops EACHEAR 4 drops TID PEREZ Administration Non-Formulary Medication 1 each 09/25/20 17:00 09/25/20 22:27 Carbidopa/Levodopa [Carbidopa-Levodopa 25-250 Tab] PO Not Given QID PEREZ Rivaroxaban 20 mg 09/25/20 18:00 09/25/20 17:48 Rivaroxaban 10 Mg Tablet PO 20 mg QDDINNER PEREZ Administration Sodium Chloride 10 ml 09/25/20 17:00 09/26/20 02:28 Sodium Chloride Flush 0.9% 10 Ml Syringe IVP Not Given 0100,0900,1700 [facility] Throat Lozenges 1 lozenge 09/26/20 05:34 09/26/20 06:14 Benzocaine/Menthol Lozenge MM 1 lozenge Q2HR PRN Administration Throat pain Triamcinolone Acetonide 1 applic 09/25/20 21:00 09/25/20 22:50 Triamcinolone 0.1% Oint 15 Gm Tube TOP Not Given BID [facility] - Lab Result Fish Bone Diagrams: 09/25/20 15:00 09/26/20 04:51 - Additional Planning My Orders: My Active Orders 09/25/20 Dinner Regular Diet [DIET] 09/25/20 16:26 Activity Orders [RC] Q2HR IO [RC] IOSHIFT Initiate Bowel Care Protocol [RC] .protocol Initiate Personal Care Protoco [RC] .protocol Oxygen Therapy [RC] .PRN Telemetry (24 Hour) [RC] Q4HR Vital Signs [RC] Q4HR Acetaminophen [Tylenol] 650 mg PO Q4HR PRN Sodium Chloride Flush 0.9% [Normal Saline Flush 0.9%] 10 ml IVP PRN PRN Code Status [OTHERS] Routine Condition of Patient [OTHERS] Routine DVT Prophylaxis [OTHERS] Routine 09/25/20 16:27 IV Insert [RC] .ONCE 09/25/20 16:28 Initiate Line Care Protocol [RC] QSHIFT ASHU Hose and SCDs [RC] QSHIFT 09/25/20 16:29 Vital Signs - Orthostatic [RC] QSHIFT Docusate Sodium 250Mg Capsule [Colace 250Mg Capsule] 250 mg PO DAILY PRN Meclizine [Antivert] 12.5 mg PO Q6H PRN 09/25/20 17:00 Carbidopa/Levodopa [Carbidopa-Levodopa 25-250 Tab] 1 each PO QID Sodium Chloride 0.9% [Normal Saline 0.9%] 1,000 ml IV 100 mls/hr Sodium Chloride Flush 0.9% [Normal Saline Flush 0.9%] 10 ml IVP 0100,0900,1700 09/25/20 18:00 Rivaroxaban [Xarelto] 20 mg PO QDDINNER 09/25/20 21:00 Metoprolol Tartrate [Lopressor] 12.5 mg PO BID Triamcinolone 0.1% Oint [Kenalog 0.1% Oint] 1 applic TOP BID 09/25/20 22:00 Neomycin/Polymyx/Hc Otic Drops [Cortisporin Otic Drops] 4 drops EACHEAR TID 09/26/20 05:34 Benzocaine/Menthol [Cepacol] 1 lozenge MM Q2HR PRN 09/26/20 09:00 Insulin Glargine [Lantus Solostar] 30 unit SUBQ DAILY Senna [Senokot] 17.2 mg PO DAILY diltiaZEM CD [Cardizem Cd] 120 mg PO DAILY methocarbamoL [Robaxin] 500 mg PO DAILY 09/26/20 21:00 Atorvastatin [Lipitor] 40 mg PO HS 09/27/20 08:00 Echo Transthoracic Complete [ECHO] Routine Subjective - Subjective Patient Reports: Resting Comfortably, No Complaints Nursing Reports: Other (Wanting to void every hour during day shift, so bladder scan done and showed 150cc residual) Objective Vital Signs: Vital Signs - 24 hr 09/25/20 09/25/20 09/25/20 14:48 15:43 17:07 Temperature 36.5 C 36.6 C Heart Rate 63 97 60 Heart Rate [ Brachial] Respiratory 18 20 18 Rate Blood Pressure 128/66 155/90 H 149/83 H Blood Pressure [Left Brachial artery] Blood Pressure [Right Brachial artery] O2 Saturation 100 97 99 09/25/20 09/25/20 09/25/20 18:00 21:24 22:32 Temperature 36.8 C 36.8 C Heart Rate Heart Rate [ 104 H 85 Brachial] Respiratory 20 20 Rate Blood Pressure 188/103 H Blood Pressure [Left Brachial artery] Blood Pressure 153/91 H 188/103 H [Right Brachial artery] O2 Saturation 98 99 09/25/20 09/26/20 09/26/20 23:56 05:22 08:00 Temperature 36.5 C 36.7 C Heart Rate Heart Rate [ 72 77 Brachial] Respiratory 20 20 Rate Blood Pressure 156/106 H Blood Pressure 171/119 H [Left Brachial artery] Blood Pressure 165/76 H [Right Brachial artery] O2 Saturation 98 99 Oxygen O2 Source Room air I&O (Last 24 Hrs): Intake and Output Totals x24h 09/24/20 09/25/20 09/26/20 23:59 23:59 23:59 Intake Total 1677.5 1000 Output Total 625 Balance 1677.5 375 General: Other (sleeping) HEENT: Mucous membr. moist/pink, Other (Is [place]) Neck: Supple Neuro: Other (sleeping, is [place]) Cardiovascular: Regular rate Respiratory: No respiratory distress Abdomen: Soft - Results Results: Laboratory Results WBC 8.4 x10^3/uL (4.8-10.8) 09/25/20 15:00 RBC 3.70 10^6/uL (4.70-6.10) L 09/25/20 15:00 Hgb 11.8 g/dL (14.0-18.0) L 09/25/20 15:00 Hct 36.3 % (42.0-52.0) L 09/25/20 15:00 MCV 98.1 fL (80.0-94.0) H 09/25/20 15:00 MCH 31.9 pg (27.0-31.0) H 09/25/20 15:00 MCHC 32.5 g/dL (32.0-36.0) 09/25/20 15:00 RDW 13.2 % (12.0-15.0) 09/25/20 15:00 Plt Count 206 10^3/uL (130-450) 09/25/20 15:00 MPV 11.4 fL (7.4-11.4) 09/25/20 15:00 Neut # (Auto) 6.3 10^3/uL (1.5-6.6) 09/25/20 15:00 Lymph # (Auto) 1.3 10^3/uL (1.5-3.5) L 09/25/20 15:00 [place] # (Auto) 0.7 10^3/uL (0.0-1.0) 09/25/20 15:00 Eos # (Auto) 0.1 10^3/uL (0.0-0.7) 09/25/20 15:00 Baso # (Auto) 0.0 10^3/uL (0.0-0.1) 09/25/20 15:00 Absolute Nucleated RBC 0.00 x10^3/uL 09/25/20 15:00 Nucleated RBC % 0.0 /100WBC 09/25/20 15:00 Sodium 138 mmol/L (135-145) 09/26/20 04:51 Potassium 4.7 mmol/L (3.5-5.0) 09/26/20 04:51 Chloride 111 mmol/L (101-111) 09/26/20 04:51 Carbon Dioxide 18 mmol/L (21-32) L 09/26/20 04:51 Anion Gap 9.0 (6-13) 09/26/20 04:51 BUN 41 mg/dL (6-20) H 09/26/20 04:51 Creatinine 2.2 mg/dL (0.6-1.2) H 09/26/20 04:51 Estimated GFR (MDRD) 30 (>89) L 09/26/20 04:51 Glucose 168 mg/dL (70-100) H 09/26/20 04:51 Calcium 8.5 mg/dL (8.5-10.3) 09/26/20 04:51 Total Bilirubin 0.7 mg/dL (0.2-1.0) 09/25/20 15:00 AST 12 IU/L (10-42) 09/25/20 15:00 ALT < 10 IU/L (10-60) L 09/25/20 15:00 Alkaline Phosphatase 45 IU/L (42-121) 09/25/20 15:00 Troponin I High Sens 7.3 ng/L (2.3-19.7) 09/25/20 15:00 B-Natriuretic Peptide 271 pg/mL (5-100) H 09/25/20 15:00 Total Protein 5.9 g/dL (6.7-8.2) L 09/25/20 15:00 Albumin 3.3 g/dL (3.2-5.5) 09/25/20 15:00 Globulin 2.6 g/dL (2.1-4.2) 09/25/20 15:00 Albumin/Globulin Ratio 1.3 (1.0-2.2) 09/25/20 15:00 Lipase 43 U/L (22-51) 09/25/20 15:00 Urine Color YELLOW 09/25/20 15:45 Urine Clarity CLEAR (CLEAR) 09/25/20 15:45 Urine pH 5.5 PH (5.0-7.5) 09/25/20 15:45 Ur Specific [place] >=1.030 (1.002-1.030) H 09/25/20 15:45 Urine Protein >=300 mg/dL (NEGATIVE) H 09/25/20 15:45 Urine Glucose (UA) NEGATIVE mg/dL (NEGATIVE) 09/25/20 15:45 Urine Ketones NEGATIVE mg/dL (NEGATIVE) 09/25/20 15:45 Urine Occult Blood NEGATIVE (NEGATIVE) 09/25/20 15:45 Urine Nitrite NEGATIVE (NEGATIVE) 09/25/20 15:45 Urine Bilirubin NEGATIVE (NEGATIVE) 09/25/20 15:45 Urine Urobilinogen 0.2 (NORMAL) E.U./dL (NORMAL) 09/25/20 15:45 Ur Leukocyte Esterase NEGATIVE (NEGATIVE) 09/25/20 15:45 Urine RBC 0-5 /HPF (0-5) 09/25/20 15:45 Urine WBC 0-3 /HPF (0-3) 09/25/20 15:45 Ur Squamous Epith Cells FEW Squamous (<= Few) 09/25/20 15:45 Urine Bacteria Rare /HPF (None Seen) 09/25/20 15:45 Urine Casts 0-2 Fine Granular /LPF 09/25/20 15:45 Ur Microscopic Review INDICATED 09/25/20 15:45 Urine Culture Comments NOT INDICATED 09/25/20 15:45 Nasal Adenovirus (PCR) NOT DETECTED 09/25/20 15:45 Nasal B. parapertussis DNA (PCR) NOT DETECTED 09/25/20 15:45 Nasal Coronavir 229E PCR NOT DETECTED 09/25/20 15:45 Nasal Coronavir HKU1 PCR NOT DETECTED 09/25/20 15:45 Nasal Coronavir NL63 PCR NOT DETECTED 09/25/20 15:45 Nasal Coronavir OC43 PCR NOT DETECTED 09/25/20 15:45 Nasal Enterovir/Rhinovir PCR NOT DETECTED 09/25/20 15:45 Nasal Influenza B PCR NOT DETECTED 09/25/20 15:45 Nasal Influenza A PCR NOT DETECTED 09/25/20 15:45 Nasal Parainfluen 1 PCR NOT DETECTED 09/25/20 15:45 Nasal Parainfluen 2 PCR NOT DETECTED 09/25/20 15:45 Nasal Parainfluen 3 PCR NOT DETECTED 09/25/20 15:45 Nasal Parainfluen 4 PCR NOT DETECTED 09/25/20 15:45 Nasal RSV (PCR) NOT DETECTED 09/25/20 15:45 Nasal B.pertussis DNA PCR NOT DETECTED 09/25/20 15:45 Nasal C.pneumoniae (PCR) NOT DETECTED 09/25/20 15:45 Ye Human Metapneumo PCR NOT DETECTED 09/25/20 15:45 Nasal M.pneumoniae (PCR) NOT DETECTED 09/25/20 15:45 Nasal SARS-CoV-2 (PCR) NOT DETECTED 09/25/20 15:45 - Procedures Procedures: Procedures VENOUS CATHETERIZATION NEC (04/17/14)
[2020-09-26] MEDS: INSULIN ASPART 300 UNIT/3 ML PEN SUBQ SCH ×4 (09:12→21:31)
[2020-09-26] MEDS: diltiaZEM CD 120 MG CAPSULE PO SCH (09:57)
[2020-09-26] MEDS: FAMOTIDINE 20 MG TABLET PO SCH ×2 (09:57→21:25)
[2020-09-26] MEDS: SENNA 8.6 MG TABLET PO SCH (09:58)
[2020-09-26] MEDS: methocarbamoL 500 MG TABLET PO SCH (09:58)
[2020-09-26] MEDS: CARBIDOPA/LEVODOPA 10 MG/100 MG TABLET PO SCH ×3 (10:03→19:48)
[2020-09-26] MEDS: INSULIN GLARGINE 300 UNIT/3 ML PEN SUBQ SCH (10:08)
[2020-09-26] MEDS: TRIAMCINOLONE 0.1% OINT 15 GM TUBE TOP SCH ×2 (10:19→21:35)
[2020-09-26] MEDS: TAMSULOSIN 0.4 MG CAPSULE PO SCH (11:37)
[2020-09-26] MEDS: CHOLECALCIFEROL 25 MCG TABLET PO SCH ×2 (11:37→21:25)
[2020-09-26] MEDS: RIVAROXABAN 10 MG TABLET PO SCH (16:57)
[2020-09-26] MEDS: ATORVASTATIN 40 MG TABLET PO SCH (21:25)
[2020-09-27] MEDS: ACETAMINOPHEN 325 MG TABLET PO PRN (00:57)
[2020-09-27] MEDS: CARBIDOPA/LEVODOPA 10 MG/100 MG TABLET PO SCH ×2 (01:13→08:13)
[2020-09-27] MEDS: SODIUM CHLORIDE 0.9% 1,000 ML IV SCH ×2 (01:17→10:31)
[2020-09-27] MEDS: SODIUM CHLORIDE FLUSH 0.9% 10 ML SYRINGE IVP SCH ×3 (01:30→21:29)
[2020-09-27] MEDS: NEOMYCIN/POLYMYX/HC OTIC DROPS EACHEAR SCH ×3 (06:09→21:26)
[2020-09-27 07:54] LABS: BASOPHILS % (AUTO) 0.5 %; EOSINOPHILS # (AUTO) 0.1 10^3/uL (0.0-0.7); EOSINOPHILS % (AUTO) 1.1 %; HCT - HEMATOCRIT 36.2 % (42.0-52.0); HGB - HEMOGLOBIN 11.5 g/dL (14.0-18.0); LYMPHOCYTES # (AUTO) 1.2 10^3/uL (1.5-3.5); LYMPHOCYTES % (AUTO) 14.4 %; MEAN CORPUSCULAR HEMOGLOBIN 31.4 pg (27.0-31.0); MEAN CORPUSCULAR HGB CONC 31.8 g/dL (32.0-36.0); MEAN CORPUSCULAR VOLUME 98.9 fL (80.0-94.0); MEAN PLATELET VOLUME 11.1 fL (7.4-11.4); MONOCYTES # (AUTO) 0.8 10^3/uL (0.0-1.0); MONOCYTES % (AUTO) 9.4 %; NEUTROPHILS # (AUTO) 6.1 10^3/uL (1.5-6.6); NEUTROPHILS % (AUTO) 74.2 %; PLT - PLATELET COUNT 194 10^3/uL (130-450); RED BLOOD COUNT 3.66 10^6/uL (4.70-6.10); RED CELL DISTRIBUTION WIDTH 13.2 % (12.0-15.0); WHITE BLOOD COUNT 8.2 x10^3/uL (4.8-10.8)
[2020-09-27 08:03] LABS: CALCIUM 8.5 mg/dL (8.5-10.3); POTASSIUM 4.3 mmol/L (3.5-5.0)
[2020-09-27] MEDS: INSULIN ASPART 300 UNIT/3 ML PEN SUBQ SCH ×4 (08:04→21:29)
[2020-09-27] MEDS: methocarbamoL 500 MG TABLET PO SCH (08:15)
[2020-09-27] MEDS: FAMOTIDINE 20 MG TABLET PO SCH ×2 (08:15→21:23)
[2020-09-27] MEDS: CHOLECALCIFEROL 25 MCG TABLET PO SCH ×2 (08:16→21:23)
[2020-09-27] MEDS: diltiaZEM CD 120 MG CAPSULE PO SCH (08:17)
[2020-09-27] MEDS: METOPROLOL TARTRATE 25 MG TABLET PO SCH ×2 (08:17→21:23)
[2020-09-27] MEDS: INSULIN GLARGINE 300 UNIT/3 ML PEN SUBQ SCH (08:29)
[2020-09-27] MEDS: SENNA 8.6 MG TABLET PO SCH (08:50)
--- NOTE | 2020-09-27 09:15 | PHARMACY PROGRESS NOTE ---
- Best Possible Medication History Admit Date and Time: 09/26/20 0819 Processed by: Nursing Medication History completed: Yes As the person ultimately responsible for medication therapy, providers are able to order a medication from an existing home medication list in [facility] via the "Reconcile Routine" prior to Confirmation of that medication by office support associate. Such practice is discouraged except when the physician, in their clinical judgment, deems that a medical need exists for a medication without regard to previous use.
[2020-09-27 10:15] LABS: ESTIMATED AVERAGE GLUCOSE 137 mg/dL (70-100); HEMOGLOBIN A1c% 6.4 % (4.27-6.07)
[2020-09-27] MEDS: TRIAMCINOLONE 0.1% OINT 15 GM TUBE TOP SCH ×2 (10:30→21:28)
[2020-09-27] MEDS: TAMSULOSIN 0.4 MG CAPSULE PO SCH (10:30)
--- NOTE | 2020-09-27 10:56 | PROVIDER PROGRESS NOTE ---
Assessment/Plan - Problem List (1) [id number] kidney injury Assessment/Plan: 3 improved, Creatinine is 2.0 today, Patient usually had creatinine is around 1.6. it is likely prerenal azotemia, will continue IVF, continue lab monitor (2) Urinary retention Patient can urinate by himself, patient does not need Major catheter, we will continue Flomax for pt (3) Near syncope Agree it could be secondary to medication versus cardiac cause versus other. Orthostatic vitals were negative so far. pt's troponin is negative, EKG reveals afib as brian hx. continue Diltiazem CD dose, which was decreased by 50% to 120 mg p.o. daily because of bradycardia. Patient receiving IV hydration with normal saline at 100ml/hr Continue telemetry Echocardiogram is pending (4) Atrial fibrillation stable, continue diltiazem CD 120 mg p.o. daily, metoprolol tartrate 12.5 mg p.o. twice daily and Xarelto 20 mg p.o. daily at dinner. (5) Diabetes mellitus continue hold patient's Metformin due to THOMAS pt's glucose is good controlled now. A1C is 6.4. continue home meds Lantus 30 units subcu daily. Sliding scale insulin. Accu- Cheks before every meal and at bedtime. (6) Hyperlipidemia continue home meds atorvastatin 40 mg p.o. nightly (7) Parkinson disease stable, continue on carbidopa/levodopa 25-250 tab. 1 tablet p.o. 4 times daily, entacapone 200 mg p.o. daily, will order Pt's own med, if it can be brought in. agree Dr. Maria E Bland's advise no further driving or be retested, based on his severe Parkinson's, can not hear, tremor on his bilateral hands (8) Hypertension stable, continue diltiazem CD 120 mg p.o. daily, Metoprolol 12.5mg po bid (9) GERD (gastroesophageal reflux disease) Conclusion/Plan: Today 10 mg IV twice daily ordered. (10) hard of hearing Communication can only be with writing - Current Meds Current Meds: Current Medications Generic Name Dose Route Start Last Admin Trade Name Freq PRN Reason Stop Dose Admin Acetaminophen 650 mg 09/25/20 16:26 09/27/20 00:57 Acetaminophen 325 Mg Tablet PO 650 mg Q4HR PRN Administration Pain 1 to 4 Atorvastatin Calcium 40 mg 09/26/20 21:00 09/26/20 21:25 Atorvastatin 40 Mg Tablet PO 40 mg HS PEREZ Administration Cholecalciferol 25 mcg 09/26/20 11:00 09/27/20 08:16 Cholecalciferol 25 Mcg Tablet PO 25 mcg BID PEREZ Administration Diltiazem HCl 120 mg 09/26/20 09:00 09/27/20 08:17 Diltiazem Cd 120 Mg Capsule PO 120 mg DAILY PEREZ Administration Famotidine 20 mg 09/25/20 21:46 09/27/20 08:15 Famotidine 20 Mg Tablet PO 20 mg BID PEREZ Administration Sodium Chloride 1,000 mls @ 100 mls/hr 09/25/20 17:00 09/27/20 10:31 Normal Saline 0.9% IV 100 mls/hr .Q10H PEREZ Administration Insulin Aspart 1 - 9 unit 09/25/20 21:00 09/27/20 08:04 Insulin Aspart 300 Unit/3 Ml Pen SUBQ Not Given 0800,1200,1700,2100 [facility] Protocol Insulin Glargine 30 unit 09/26/20 09:00 09/27/20 08:29 Insulin Glargine 300 Unit/3 Ml Pen SUBQ 30 unit DAILY PEREZ Administration Methocarbamol 500 mg 09/26/20 09:00 09/27/20 08:15 Methocarbamol 500 Mg Tablet PO 500 mg DAILY PEREZ Administration Metoprolol Tartrate 12.5 mg 09/25/20 21:00 09/27/20 08:17 Metoprolol Tartrate 25 Mg Tablet PO 12.5 mg BID PEREZ Administration Neomycin/Polymyxin/Hydrocortisone 4 drops 09/25/20 22:00 09/27/20 06:09 Neomycin/Polymyx/Hc Otic Drops EACHEAR 4 drops TID PEREZ Administration Rivaroxaban 20 mg 09/25/20 18:00 09/26/20 16:57 Rivaroxaban 10 Mg Tablet PO 20 mg QDDINNER PEREZ Administration Senna 17.2 mg 09/26/20 09:00 09/27/20 08:50 Senna 8.6 Mg Tablet PO 17.2 mg DAILY PEREZ Administration Sodium Chloride 10 ml 09/25/20 17:00 09/27/20 10:31 Sodium Chloride Flush 0.9% 10 Ml Syringe IVP Not Given 0100,0900,1700 PEREZ Tamsulosin HCl 0.4 mg 09/26/20 11:00 09/27/20 10:30 Tamsulosin 0.4 Mg Capsule PO 0.4 mg DAILY PEREZ Administration Throat Lozenges 1 lozenge 09/26/20 05:34 09/26/20 06:14 Benzocaine/Menthol Lozenge MM 1 lozenge Q2HR PRN Administration Throat pain Triamcinolone Acetonide 1 applic 09/25/20 21:00 09/27/20 10:30 Triamcinolone 0.1% Oint 15 Gm Tube TOP 1 applic BID PEREZ Administration - Lab Result Fish Bone Diagrams: 09/27/20 07:51 09/27/20 07:51 - Additional Planning My Orders: My Active Orders 09/28/20 05:00 BMP - BASIC METABOLIC PANEL [CHEM] DAILYLAB CBC - COMP BLD CT W/AUTO DIFF [HEME] DAILYLAB 09/29/20 05:00 BMP - BASIC METABOLIC PANEL [CHEM] DAILYLAB CBC - COMP BLD CT W/AUTO DIFF [HEME] DAILYLAB 09/30/20 05:00 BMP - BASIC METABOLIC PANEL [CHEM] DAILYLAB CBC - COMP BLD CT W/AUTO DIFF [HEME] DAILYLAB 10/01/20 05:00 BMP - BASIC METABOLIC PANEL [CHEM] DAILYLAB CBC - COMP BLD CT W/AUTO DIFF [HEME] DAILYLAB Subjective - Subjective Patient Reports: Feeling Better Objective Vital Signs: Vital Signs - 24 hr 09/26/20 09/26/20 09/26/20 12:08 18:16 21:25 Temperature 36.5 C Heart Rate [ 79 101 H Brachial] Respiratory 18 20 Rate Blood Pressure 159/88 H Blood Pressure 154/104 H 136/82 H [Left Brachial artery] O2 Saturation 99 99 09/26/20 09/27/20 09/27/20 21:31 01:00 04:48 Temperature 36.5 C 36.4 C L 36.8 C Heart Rate [ 80 65 89 Brachial] Respiratory 20 20 18 Rate Blood Pressure Blood Pressure 159/88 H 154/94 H 167/84 H [Left Brachial artery] O2 Saturation 100 100 100 09/27/20 08:17 Temperature Heart Rate [ Brachial] Respiratory Rate Blood Pressure 146/68 H Blood Pressure [Left Brachial artery] O2 Saturation Oxygen O2 Source Room air I&O (Last 24 Hrs): Intake and Output Totals x24h 09/25/20 09/26/20 09/27/20 23:59 23:59 23:59 Intake Total 1677.5 3600 2163.333 Output Total 1025 Balance 1677.5 2575 2163.333 General: Alert, Cooperative, No acute distress HEENT: Atraumatic, PERRLA Neck: Supple Lymphatic: no adenopathy Neuro: Alert, Non Focal Cardiovascular: Regular rate, Normal S1, Normal S2 Respiratory: Chest non-tender, No respiratory distress, Breath sounds nml Abdomen: Normal bowel sounds, Soft Extremities: Normal pulses - Results Results: Laboratory Results WBC 8.2 x10^3/uL (4.8-10.8) 09/27/20 07:51 RBC 3.66 10^6/uL (4.70-6.10) L 09/27/20 07:51 Hgb 11.5 g/dL (14.0-18.0) L 09/27/20 07:51 Hct 36.2 % (42.0-52.0) L 09/27/20 07:51 MCV 98.9 fL (80.0-94.0) H 09/27/20 07:51 MCH 31.4 pg (27.0-31.0) H 09/27/20 07:51 MCHC 31.8 g/dL (32.0-36.0) L 09/27/20 07:51 RDW 13.2 % (12.0-15.0) 09/27/20 07:51 Plt Count 194 10^3/uL (130-450) 09/27/20 07:51 MPV 11.1 fL (7.4-11.4) 09/27/20 07:51 Neut # (Auto) 6.1 10^3/uL (1.5-6.6) 09/27/20 07:51 Lymph # (Auto) 1.2 10^3/uL (1.5-3.5) L 09/27/20 07:51 Wetzel # (Auto) 0.8 10^3/uL (0.0-1.0) 09/27/20 07:51 Eos # (Auto) 0.1 10^3/uL (0.0-0.7) 09/27/20 07:51 Baso # (Auto) 0.0 10^3/uL (0.0-0.1) 09/27/20 07:51 Absolute Nucleated RBC 0.00 x10^3/uL 09/27/20 07:51 Nucleated RBC % 0.0 /100WBC 09/27/20 07:51 Sodium 141 mmol/L (135-145) 09/27/20 07:51 Potassium 4.3 mmol/L (3.5-5.0) 09/27/20 07:51 Chloride 110 mmol/L (101-111) 09/27/20 07:51 Carbon Dioxide 21 mmol/L (21-32) 09/27/20 07:51 Anion Gap 10.0 (6-13) 09/27/20 07:51 BUN 31 mg/dL (6-20) H 09/27/20 07:51 Creatinine 2.0 mg/dL (0.6-1.2) H 09/27/20 07:51 Estimated GFR (MDRD) 33 (>89) L 09/27/20 07:51 Glucose 113 mg/dL (70-100) H 09/27/20 07:51 POC Whole Bld Glucose 99 mg/dL (70 - 100) 09/27/20 08:04 Estimat Average Glucose 137 mg/dL (70-100) H 09/27/20 07:51 Hemoglobin A1c % 6.4 % (4.27-6.07) H 09/27/20 07:51 Calcium 8.5 mg/dL (8.5-10.3) 09/27/20 07:51 Total Bilirubin 0.7 mg/dL (0.2-1.0) 09/25/20 15:00 AST 12 IU/L (10-42) 09/25/20 15:00 ALT < 10 IU/L (10-60) L 09/25/20 15:00 Alkaline Phosphatase 45 IU/L (42-121) 09/25/20 15:00 Troponin I High Sens 7.3 ng/L (2.3-19.7) 09/25/20 15:00 B-Natriuretic Peptide 271 pg/mL (5-100) H 09/25/20 15:00 Total Protein 5.9 g/dL (6.7-8.2) L 09/25/20 15:00 Albumin 3.3 g/dL (3.2-5.5) 09/25/20 15:00 Globulin 2.6 g/dL (2.1-4.2) 09/25/20 15:00 Albumin/Globulin Ratio 1.3 (1.0-2.2) 09/25/20 15:00 Lipase 43 U/L (22-51) 09/25/20 15:00 Urine Color YELLOW 09/25/20 15:45 Urine Clarity CLEAR (CLEAR) 09/25/20 15:45 Urine pH 5.5 PH (5.0-7.5) 09/25/20 15:45 Ur Specific [place] >=1.030 (1.002-1.030) H 09/25/20 15:45 Urine Protein >=300 mg/dL (NEGATIVE) H 09/25/20 15:45 Urine Glucose (UA) NEGATIVE mg/dL (NEGATIVE) 09/25/20 15:45 Urine Ketones NEGATIVE mg/dL (NEGATIVE) 09/25/20 15:45 Urine Occult Blood NEGATIVE (NEGATIVE) 09/25/20 15:45 Urine Nitrite NEGATIVE (NEGATIVE) 09/25/20 15:45 Urine Bilirubin NEGATIVE (NEGATIVE) 09/25/20 15:45 Urine Urobilinogen 0.2 (NORMAL) E.U./dL (NORMAL) 09/25/20 15:45 Ur Leukocyte Esterase NEGATIVE (NEGATIVE) 09/25/20 15:45 Urine RBC 0-5 /HPF (0-5) 09/25/20 15:45 Urine WBC 0-3 /HPF (0-3) 09/25/20 15:45 Ur Squamous Epith Cells FEW Squamous (<= Few) 09/25/20 15:45 Urine Bacteria Rare /HPF (None Seen) 09/25/20 15:45 Urine Casts 0-2 Fine Granular /LPF 09/25/20 15:45 Ur Microscopic Review INDICATED 09/25/20 15:45 Urine Culture Comments NOT INDICATED 09/25/20 15:45 Nasal Adenovirus (PCR) NOT DETECTED 09/25/20 15:45 Nasal B. parapertussis DNA (PCR) NOT DETECTED 09/25/20 15:45 Nasal Coronavir 229E PCR NOT DETECTED 09/25/20 15:45 Nasal Coronavir HKU1 PCR NOT DETECTED 09/25/20 15:45 Nasal Coronavir NL63 PCR NOT DETECTED 09/25/20 15:45 Nasal Coronavir OC43 PCR NOT DETECTED 09/25/20 15:45 Nasal Enterovir/Rhinovir PCR NOT DETECTED 09/25/20 15:45 Nasal Influenza B PCR NOT DETECTED 09/25/20 15:45 Nasal Influenza A PCR NOT DETECTED 09/25/20 15:45 Nasal Parainfluen 1 PCR NOT DETECTED 09/25/20 15:45 Nasal Parainfluen 2 PCR NOT DETECTED 09/25/20 15:45 Nasal Parainfluen 3 PCR NOT DETECTED 09/25/20 15:45 Nasal Parainfluen 4 PCR NOT DETECTED 09/25/20 15:45 Nasal RSV (PCR) NOT DETECTED 09/25/20 15:45 Nasal B.pertussis DNA PCR NOT DETECTED 09/25/20 15:45 Nasal C.pneumoniae (PCR) NOT DETECTED 09/25/20 15:45 Ye Human Metapneumo PCR NOT DETECTED 09/25/20 15:45 Nasal M.pneumoniae (PCR) NOT DETECTED 09/25/20 15:45 Nasal SARS-CoV-2 (PCR) NOT DETECTED 09/25/20 15:45 - Procedures Procedures: Procedures VENOUS CATHETERIZATION NEC (04/17/14) Sepsis Event Note (H) - Evaluation Current Stage of Sepsis: Ruled out ABX Reporting Has patient been on IV antibiotics over the past 48 hours?: No Current Medications - Current Medications Current Medications: Active Medications Acetaminophen (Acetaminophen 325 Mg Tablet) 650 mg PO Q4HR PRN PRN Reason: Pain 1 to 4 Last Admin: 09/27/20 00:57 Dose: 650 mg Documented by: Atorvastatin Calcium (Atorvastatin 40 Mg Tablet) 40 mg PO [facility] Last Admin: 09/26/20 21:25 Dose: 40 mg Documented by: Carbidopa/Levodopa (Carbidopa/Levodopa 25 Mg/250 Mg Tablet) 1 tab PO 0800,2000 [facility] Carbidopa/Levodopa (Carbidopa/Levodopa 25 Mg/250 Mg Tablet) 2 tab PO 0200,1400 [facility] Cholecalciferol (Cholecalciferol 25 Mcg Tablet) 25 mcg PO BID [facility] Last Admin: 09/27/20 08:16 Dose: 25 mcg Documented by: Diltiazem HCl (Diltiazem Cd 120 Mg Capsule) 120 mg PO DAILY [facility] Last Admin: 09/27/20 08:17 Dose: 120 mg Documented by: Docusate Sodium (Docusate Sodium 250 Mg Capsule) 250 mg PO DAILY PRN PRN Reason: Constipation Famotidine (Famotidine 20 Mg Tablet) 20 mg PO BID [facility] Last Admin: 09/27/20 08:15 Dose: 20 mg Documented by: Sodium Chloride (Normal Saline 0.9%) 1,000 mls @ 100 mls/hr IV .Q10H [facility] Last Admin: 09/27/20 10:31 Dose: 100 mls/hr Documented by: Insulin Aspart (Insulin Aspart 300 Unit/3 Ml Pen) 1 - 9 unit SUBQ 0800,1200,1700,2100 [facility]; Protocol Last Admin: 09/27/20 08:04 Dose: Not Given Documented by: Insulin Glargine (Insulin Glargine 300 Unit/3 Ml Pen) 30 unit SUBQ DAILY [facility] Last Admin: 09/27/20 08:29 Dose: 30 unit Documented by: Meclizine HCl (Meclizine 12.5 Mg Tablet) 12.5 mg PO Q6H PRN PRN Reason: Vertigo Methocarbamol (Methocarbamol 500 Mg Tablet) 500 mg PO DAILY [facility] Last Admin: 09/27/20 08:15 Dose: 500 mg Documented by: Metoprolol Tartrate (Metoprolol Tartrate 25 Mg Tablet) 12.5 mg PO BID [facility] Last Admin: 09/27/20 08:17 Dose: 12.5 mg Documented by: Neomycin/Polymyxin/Hydrocortisone (Neomycin/Polymyx/Hc Otic Drops) 4 drops EACHEAR TID [facility] Last Admin: 09/27/20 06:09 Dose: 4 drops Documented by: Rivaroxaban (Rivaroxaban 10 Mg Tablet) 20 mg PO QDDINNER [facility] Last Admin: 09/26/20 16:57 Dose: 20 mg Documented by: Senna (Senna 8.6 Mg Tablet) 17.2 mg PO DAILY [facility] Last Admin: 09/27/20 08:50 Dose: 17.2 mg Documented by: Sodium Chloride (Sodium Chloride Flush 0.9% 10 Ml Syringe) 10 ml IVP PRN PRN PRN Reason: NEEDED PER PROVIDER ORDERS Sodium Chloride (Sodium Chloride Flush 0.9% 10 Ml Syringe) 10 ml IVP 0100,0900 ,1700 [facility] Last Admin: 09/27/20 10:31 Dose: Not Given Documented by: Tamsulosin HCl (Tamsulosin 0.4 Mg Capsule) 0.4 mg PO DAILY [facility] Last Admin: 09/27/20 10:30 Dose: 0.4 mg Documented by: Throat Lozenges (Benzocaine/Menthol Lozenge) 1 lozenge MM Q2HR PRN PRN Reason: Throat pain Last Admin: 09/26/20 06:14 Dose: 1 lozenge Documented by: Triamcinolone Acetonide (Triamcinolone 0.1% Oint 15 Gm Tube) 1 applic TOP BID [facility] Last Admin: 09/27/20 10:30 Dose: 1 applic Documented by: Metformin HCl [Glucophage Xr] 500 mg PO BID 10/02/13 Omeprazole 20 mg PO BID 10/02/13 diltiaZEM CD [Cardizem Cd] 240 mg PO DAILY 10/02/13 Cholecalciferol (Vitamin D3) [Vitamin D-3] 1,000 unit PO BID 10/05/13 Triamcinolone 0.1% Oint [Kenalog 0.1% Oint] 1 applic TD BID 12/03/15 Atorvastatin Calcium 40 mg PO DAILY 01/24/16 Insulin Glargine,Hum.rec.anlog [Lantus] 30 unit SQ DAILY 01/24/16 Metoprolol Tartrate 12.5 mg PO BID 01/24/16 Senna [Senokot] 2 tab PO DAILY 03/09/17 Carbidopa/Levodopa [Carbidopa-Levodopa 25-250 Tab] 1 each PO QID 01/05/20 Docusate Sodium [Dss] 250 mg PO DAILY PRN 01/05/20 Ergocalciferol (Vitamin D2) [Drisdol] 1,250 mcg PO ONCE 01/05/20 methocarbamoL [Methocarbamol] 1,000 mg PO BID 01/05/20 Rivaroxaban [Xarelto] 20 mg PO QPM 07/23/20 Entacapone [Comtan] 1 tab PO DAILY 09/25/20 Amlodipine Besylate [Norvasc] 2.5 mg PO DAILY 09/26/20 Carvedilol [Coreg] 25 mg PO BID 09/26/20
[2020-09-27] MEDS: CARBIDOPA/LEVODOPA 25 MG/250 MG TABLET PO SCH ×2 (13:44→21:22)
[2020-09-27] MEDS ORDERED: SODIUM CHLORIDE 0.9% 1,000 ML IV SCH (14:24)
--- NOTE | 2020-09-27 14:42 | XRAY Report ---
PROCEDURE: Chest 1 View X-Ray INDICATIONS: sob TECHNIQUE: One view of the chest was acquired. COMPARISON: Chest x-ray 09/25/2020 FINDINGS: Surgical changes and devices: None. Lungs and pleura: No pleural effusions or pneumothorax. Lungs are clear. Mild appearance of increa sed vascularity. Mediastinum: Mediastinal contours appear normal. Heart size is normal. Bones and chest wall: No suspicious bony lesions. Overlying soft tissues appear unremarkable. IMPRESSION: Mild appearance of increased vascularity suggestive of edema. Reviewed by: Keya Meléndez MD on 09/27/2020 2:41 PM PST Approved by: Keya Meléndez MD on 09/27/2020 2:41 PM PST Station ID: [id number]
[2020-09-27] MEDS ORDERED: MAGNESIUM SULFATE 2 GRAM 2 GM/50 ML BAG IV ONE (15:43)
[2020-09-27] MEDS: RIVAROXABAN 10 MG TABLET PO SCH (17:06)
[2020-09-27] MEDS: ATORVASTATIN 40 MG TABLET PO SCH (21:22)
[2020-09-28] MEDS: SODIUM CHLORIDE FLUSH 0.9% 10 ML SYRINGE IVP SCH ×3 (00:30→17:20)
[2020-09-28] MEDS: CARBIDOPA/LEVODOPA 25 MG/250 MG TABLET PO SCH ×4 (02:43→20:20)
[2020-09-28] MEDS: NEOMYCIN/POLYMYX/HC OTIC DROPS EACHEAR SCH ×3 (05:13→21:19)
[2020-09-28 05:36] LABS: BASOPHILS # (AUTO) 0.1 10^3/uL (0.0-0.1); BASOPHILS % (AUTO) 0.6 %; EOSINOPHILS # (AUTO) 0.1 10^3/uL (0.0-0.7); EOSINOPHILS % (AUTO) 1.5 %; HCT - HEMATOCRIT 35.8 % (42.0-52.0); HGB - HEMOGLOBIN 11.6 g/dL (14.0-18.0); LYMPHOCYTES # (AUTO) 1.4 10^3/uL (1.5-3.5); LYMPHOCYTES % (AUTO) 17.4 %; MEAN CORPUSCULAR HEMOGLOBIN 31.6 pg (27.0-31.0); MEAN CORPUSCULAR HGB CONC 32.4 g/dL (32.0-36.0); MEAN CORPUSCULAR VOLUME 97.5 fL (80.0-94.0); MEAN PLATELET VOLUME 11.4 fL (7.4-11.4); MONOCYTES # (AUTO) 0.7 10^3/uL (0.0-1.0); MONOCYTES % (AUTO) 9.3 %; NEUTROPHILS # (AUTO) 5.5 10^3/uL (1.5-6.6); NEUTROPHILS % (AUTO) 70.8 %; PLT - PLATELET COUNT 206 10^3/uL (130-450); RED BLOOD COUNT 3.67 10^6/uL (4.70-6.10); RED CELL DISTRIBUTION WIDTH 12.9 % (12.0-15.0); WHITE BLOOD COUNT 7.8 x10^3/uL (4.8-10.8)
[2020-09-28 05:45] LABS: CALCIUM 8.5 mg/dL (8.5-10.3); CREATININE 1.9 mg/dL (0.6-1.2)
[2020-09-28] MEDS: TAMSULOSIN 0.4 MG CAPSULE PO SCH (09:01)
[2020-09-28] MEDS: METOPROLOL TARTRATE 25 MG TABLET PO SCH ×3 (09:01→21:14)
[2020-09-28] MEDS: FAMOTIDINE 20 MG TABLET PO SCH ×2 (09:01→20:20)
[2020-09-28] MEDS: MAGNESIUM OXIDE 400 MG TABLET PO SCH (09:01)
[2020-09-28] MEDS: diltiaZEM CD 120 MG CAPSULE PO SCH (09:01)
[2020-09-28] MEDS: methocarbamoL 500 MG TABLET PO SCH (09:01)
[2020-09-28] MEDS: INSULIN ASPART 300 UNIT/3 ML PEN SUBQ SCH ×4 (09:02→21:20)
[2020-09-28] MEDS: SENNA 8.6 MG TABLET PO SCH (09:02)
[2020-09-28] MEDS: CHOLECALCIFEROL 25 MCG TABLET PO SCH ×2 (09:02→20:20)
[2020-09-28] MEDS: TRIAMCINOLONE 0.1% OINT 15 GM TUBE TOP SCH ×2 (09:13→21:19)
[2020-09-28] MEDS: INSULIN GLARGINE 300 UNIT/3 ML PEN SUBQ SCH (09:18)
--- NOTE | 2020-09-28 14:59 | PROVIDER PROGRESS NOTE ---
Assessment/Plan - Problem List (1) [id number] kidney injury Assessment/Plan: 3/2 improved. creatinine 1.9 as his baseline about 2 months ago. CXR reveal pt has mild Pulmonary congestion, so we will hold intravenous IV fluids. continue lab monitor, continue avoid nephotoxins 3/ improved, Creatinine is 2.0 today, Patient usually had creatinine is around 1.6. it is likely prerenal azotemia, will continue IVF, continue lab monitor (2) Urinary retention Patient can urinate by himself, patient does not need Major catheter, we will continue Flomax for pt (3) Near syncope Agree it could be secondary to medication versus cardiac cause versus other. Orthostatic vitals were negative so far. pt's troponin is negative, EKG reveals afib as brian hx. continue Diltiazem CD dose, which was decreased by 50% to 120 mg p.o. daily because of bradycardia. Patient receiving IV hydration with normal saline at 100ml/hr Continue telemetry Echocardiogram is pending (4) Atrial fibrillation 3/2 continue diltiazem CD 120 mg p.o. daily, increased metoprolol tartrate to 25 mg p.o. twice daily since pt has slight elevated BP, and continue Xarelto 20 mg p.o. daily stable, continue diltiazem CD 120 mg p.o. daily, metoprolol tartrate 25 mg p.o. twice daily and Xarelto 20 mg p.o. daily at dinner. (5) Diabetes mellitus continue hold patient's Metformin due to THOMAS pt's glucose is good controlled now. A1C is 6.4. continue home meds Lantus 30 units subcu daily. Sliding scale insulin. Accu-Chek s before every meal and at bedtime. (6) Hyperlipidemia continue home meds atorvastatin 40 mg p.o. nightly (7) Parkinson disease stable, continue on carbidopa/levodopa 25-250 tab. 1 tablet p.o. 4 times daily, entacapone 200 mg p.o. daily, will order Pt's own med, if it can be brought in. agree Dr. Maria E Bland's advise no further driving or be retested, based on his severe Parkinson's, can not hear, tremor on his bilateral hands (8) Hypertension 3/2 slight elevated, increased metoprolol to 25 mg bid stable, continue diltiazem CD 120 mg p.o. daily, Metoprolol 12.5mg po bid (9) GERD (gastroesophageal reflux disease) Conclusion/Plan: Today 10 mg IV twice daily ordered. (10) hard of hearing Communication can only be with writing (11)weakness PT/OT evaluated and treated for pt, recommend to SNF, consult with social security specialist for safely d/c disposition. - Current Meds Current Meds: Current Medications Generic Name Dose Route Start Last Admin Trade Name Freq PRN Reason Stop Dose Admin Acetaminophen 650 mg 09/25/20 16:26 09/27/20 00:57 Acetaminophen 325 Mg Tablet PO 650 mg Q4HR PRN Administration Pain 1 to 4 Atorvastatin Calcium 40 mg 09/26/20 21:00 09/27/20 21:22 Atorvastatin 40 Mg Tablet PO 40 mg HS PEREZ Administration Carbidopa/Levodopa 1 tab 09/27/20 20:00 09/28/20 09:01 Carbidopa/Levodopa 25 Mg/250 Mg Tablet PO 1 tab 0800,2000 PEREZ Administration Carbidopa/Levodopa 2 tab 09/27/20 14:00 09/28/20 14:25 Carbidopa/Levodopa 25 Mg/250 Mg Tablet PO 2 tab 0200,1400 PEREZ Administration Cholecalciferol 25 mcg 09/26/20 11:00 09/28/20 09:02 Cholecalciferol 25 Mcg Tablet PO 25 mcg BID PEREZ Administration Diltiazem HCl 120 mg 09/26/20 09:00 09/28/20 09:01 Diltiazem Cd 120 Mg Capsule PO 120 mg DAILY PEREZ Administration Famotidine 20 mg 09/25/20 21:46 09/28/20 09:01 Famotidine 20 Mg Tablet PO 20 mg BID PEREZ Administration Insulin Aspart 1 - 9 unit 09/25/20 21:00 09/28/20 11:53 Insulin Aspart 300 Unit/3 Ml Pen SUBQ 1 unit 0800,1200,1700,2100 PEREZ Administration Protocol Insulin Glargine 30 unit 09/26/20 09:00 09/28/20 09:18 Insulin Glargine 300 Unit/3 Ml Pen SUBQ 30 unit DAILY PEREZ Administration Magnesium Oxide 400 mg 09/28/20 08:00 09/28/20 09:01 Magnesium Oxide 400 Mg Tablet PO 400 mg DAILYWM PEREZ Administration Methocarbamol 500 mg 09/26/20 09:00 09/28/20 09:01 Methocarbamol 500 Mg Tablet PO 500 mg DAILY PEREZ Administration Neomycin/Polymyxin/Hydrocortisone 4 drops 09/25/20 22:00 09/28/20 14:26 Neomycin/Polymyx/Hc Otic Drops EACHEAR 4 drops TID PEREZ Administration Rivaroxaban 20 mg 09/25/20 18:00 09/27/20 17:06 Rivaroxaban 10 Mg Tablet PO 20 mg QDDINNER PEREZ Administration Senna 17.2 mg 09/26/20 09:00 09/28/20 09:02 Senna 8.6 Mg Tablet PO 17.2 mg DAILY PEREZ Administration Sodium Chloride 10 ml 09/25/20 17:00 09/28/20 09:02 Sodium Chloride Flush 0.9% 10 Ml Syringe IVP 10 ml 0100,0900,1700 PEREZ Administration Tamsulosin HCl 0.4 mg 09/26/20 11:00 09/28/20 09:01 Tamsulosin 0.4 Mg Capsule PO 0.4 mg DAILY PEREZ Administration Throat Lozenges 1 lozenge 09/26/20 05:34 09/26/20 06:14 Benzocaine/Menthol Lozenge MM 1 lozenge Q2HR PRN Administration Throat pain Triamcinolone Acetonide 1 applic 09/25/20 21:00 09/28/20 09:13 Triamcinolone 0.1% Oint 15 Gm Tube TOP 1 applic BID PEREZ Administration - Lab Result Fish Bone Diagrams: 09/28/20 05:04 09/28/20 05:04 - Additional Planning My Orders: My Active Orders 09/28/20 08:00 Magnesium Oxide [Mag Ox] 400 mg PO DAILYWM 09/28/20 15:00 Metoprolol Tartrate [Lopressor] 25 mg PO BID 09/29/20 05:00 BMP - BASIC METABOLIC PANEL [CHEM] DAILYLAB CBC - COMP BLD CT W/AUTO DIFF [HEME] DAILYLAB MAGNESIUM [CHEM] DAILYLAB 09/30/20 05:00 BMP - BASIC METABOLIC PANEL [CHEM] DAILYLAB CBC - COMP BLD CT W/AUTO DIFF [HEME] DAILYLAB 10/01/20 05:00 BMP - BASIC METABOLIC PANEL [CHEM] DAILYLAB CBC - COMP BLD CT W/AUTO DIFF [HEME] DAILYLAB Subjective - Subjective Patient Reports: Feeling Better Objective Vital Signs: Vital Signs - 24 hr 03/01/21 03/01/21 03/01/21 17:00 21:00 21:23 Temperature 36.6 C 36.7 C Heart Rate [ 67 70 Brachial] Respiratory 18 18 Rate Blood Pressure 165/94 H Blood Pressure 147/88 H [Left Brachial artery] Blood Pressure [Right Brachial artery] O2 Saturation 100 99 09/28/20 09/28/20 09/28/20 00:30 05:00 07:51 Temperature 37.0 C 37.0 C 36.4 C L Heart Rate [ 64 79 89 Brachial] Respiratory 18 20 18 Rate Blood Pressure Blood Pressure 126/104 H 157/71 H [Left Brachial artery] Blood Pressure 164/103 H [Right Brachial artery] O2 Saturation 100 100 100 09/28/20 12:00 Temperature 36.3 C L Heart Rate [ 81 Brachial] Respiratory 18 Rate Blood Pressure Blood Pressure [Left Brachial artery] Blood Pressure 161/107 H [Right Brachial artery] O2 Saturation 99 Oxygen O2 Source Room air I&O (Last 24 Hrs): Intake and Output Totals x24h 09/26/20 09/27/20 09/28/20 23:59 23:59 23:59 Intake Total 3600 2964.333 620 Output Total 1025 Balance 2575 2964.333 620 General: Alert, No acute distress HEENT: Atraumatic Neck: Supple Lymphatic: no adenopathy Neuro: Alert, Non Focal Cardiovascular: Regular rate, Normal S1, Normal S2 Respiratory: Chest non-tender, No respiratory distress Abdomen: Normal bowel sounds, Soft Extremities: Normal pulses - Results Results: Laboratory Results WBC 7.8 x10^3/uL (4.8-10.8) 09/28/20 05:04 RBC 3.67 10^6/uL (4.70-6.10) L 09/28/20 05:04 Hgb 11.6 g/dL (14.0-18.0) L 09/28/20 05:04 Hct 35.8 % (42.0-52.0) L 09/28/20 05:04 MCV 97.5 fL (80.0-94.0) H 09/28/20 05:04 MCH 31.6 pg (27.0-31.0) H 09/28/20 05:04 MCHC 32.4 g/dL (32.0-36.0) 09/28/20 05:04 RDW 12.9 % (12.0-15.0) 09/28/20 05:04 Plt Count 206 10^3/uL (130-450) 09/28/20 05:04 MPV 11.4 fL (7.4-11.4) 09/28/20 05:04 Neut # (Auto) 5.5 10^3/uL (1.5-6.6) 09/28/20 05:04 Lymph # (Auto) 1.4 10^3/uL (1.5-3.5) L 09/28/20 05:04 Josephine # (Auto) 0.7 10^3/uL (0.0-1.0) 09/28/20 05:04 Eos # (Auto) 0.1 10^3/uL (0.0-0.7) 09/28/20 05:04 Baso # (Auto) 0.1 10^3/uL (0.0-0.1) 09/28/20 05:04 Absolute Nucleated RBC 0.00 x10^3/uL 09/28/20 05:04 Nucleated RBC % 0.0 /100WBC 09/28/20 05:04 Sodium 136 mmol/L (135-145) 09/28/20 05:04 Potassium 4.0 mmol/L (3.5-5.0) 09/28/20 05:04 Chloride 109 mmol/L (101-111) 09/28/20 05:04 Carbon Dioxide 19 mmol/L (21-32) L 09/28/20 05:04 Anion Gap 8.0 (6-13) 09/28/20 05:04 BUN 28 mg/dL (6-20) H 09/28/20 05:04 Creatinine 1.9 mg/dL (0.6-1.2) H 09/28/20 05:04 Estimated GFR (MDRD) 35 (>89) L 09/28/20 05:04 Glucose 129 mg/dL (70-100) H 09/28/20 05:04 POC Whole Bld Glucose 156 mg/dL (70 - 100) H 09/28/20 11:26 Estimat Average Glucose 137 mg/dL (70-100) H 09/27/20 07:51 Hemoglobin A1c % 6.4 % (4.27-6.07) H 09/27/20 07:51 Calcium 8.5 mg/dL (8.5-10.3) 09/28/20 05:04 Magnesium 1.7 mg/dL (1.7-2.8) 09/28/20 05:04 Total Bilirubin 0.7 mg/dL (0.2-1.0) 09/25/20 15:00 AST 12 IU/L (10-42) 09/25/20 15:00 ALT < 10 IU/L (10-60) L 09/25/20 15:00 Alkaline Phosphatase 45 IU/L (42-121) 09/25/20 15:00 Troponin I High Sens 10.6 ng/L (2.3-19.7) 09/27/20 14:35 B-Natriuretic Peptide 271 pg/mL (5-100) H 09/25/20 15:00 Total Protein 5.9 g/dL (6.7-8.2) L 09/25/20 15:00 Albumin 3.3 g/dL (3.2-5.5) 09/25/20 15:00 Globulin 2.6 g/dL (2.1-4.2) 09/25/20 15:00 Albumin/Globulin Ratio 1.3 (1.0-2.2) 09/25/20 15:00 Lipase 43 U/L (22-51) 09/25/20 15:00 Urine Color YELLOW 09/25/20 15:45 Urine Clarity CLEAR (CLEAR) 09/25/20 15:45 Urine pH 5.5 PH (5.0-7.5) 09/25/20 15:45 Ur Specific [place] >=1.030 (1.002-1.030) H 09/25/20 15:45 Urine Protein >=300 mg/dL (NEGATIVE) H 09/25/20 15:45 Urine Glucose (UA) NEGATIVE mg/dL (NEGATIVE) 09/25/20 15:45 Urine Ketones NEGATIVE mg/dL (NEGATIVE) 09/25/20 15:45 Urine Occult Blood NEGATIVE (NEGATIVE) 09/25/20 15:45 Urine Nitrite NEGATIVE (NEGATIVE) 09/25/20 15:45 Urine Bilirubin NEGATIVE (NEGATIVE) 09/25/20 15:45 Urine Urobilinogen 0.2 (NORMAL) E.U./dL (NORMAL) 09/25/20 15:45 Ur Leukocyte Esterase NEGATIVE (NEGATIVE) 09/25/20 15:45 Urine RBC 0-5 /HPF (0-5) 09/25/20 15:45 Urine WBC 0-3 /HPF (0-3) 09/25/20 15:45 Ur Squamous Epith Cells FEW Squamous (<= Few) 09/25/20 15:45 Urine Bacteria Rare /HPF (None Seen) 09/25/20 15:45 Urine Casts 0-2 Fine Granular /LPF 09/25/20 15:45 Ur Microscopic Review INDICATED 09/25/20 15:45 Urine Culture Comments NOT INDICATED 09/25/20 15:45 Nasal Adenovirus (PCR) NOT DETECTED 09/25/20 15:45 Nasal B. parapertussis DNA (PCR) NOT DETECTED 09/25/20 15:45 Nasal Coronavir 229E PCR NOT DETECTED 09/25/20 15:45 Nasal Coronavir HKU1 PCR NOT DETECTED 09/25/20 15:45 Nasal Coronavir NL63 PCR NOT DETECTED 09/25/20 15:45 Nasal Coronavir OC43 PCR NOT DETECTED 09/25/20 15:45 Nasal Enterovir/Rhinovir PCR NOT DETECTED 09/25/20 15:45 Nasal Influenza B PCR NOT DETECTED 09/25/20 15:45 Nasal Influenza A PCR NOT DETECTED 09/25/20 15:45 Nasal Parainfluen 1 PCR NOT DETECTED 09/25/20 15:45 Nasal Parainfluen 2 PCR NOT DETECTED 09/25/20 15:45 Nasal Parainfluen 3 PCR NOT DETECTED 09/25/20 15:45 Nasal Parainfluen 4 PCR NOT DETECTED 09/25/20 15:45 Nasal RSV (PCR) NOT DETECTED 09/25/20 15:45 Nasal B.pertussis DNA PCR NOT DETECTED 09/25/20 15:45 Nasal C.pneumoniae (PCR) NOT DETECTED 09/25/20 15:45 Ye Human Metapneumo PCR NOT DETECTED 09/25/20 15:45 Nasal M.pneumoniae (PCR) NOT DETECTED 09/25/20 15:45 Nasal SARS-CoV-2 (PCR) NOT DETECTED 09/25/20 15:45 - Procedures Procedures: Procedures VENOUS CATHETERIZATION NEC (04/17/14) Sepsis Event Note (H) - Evaluation Current Stage of Sepsis: Ruled out ABX Reporting Has patient been on IV antibiotics over the past 48 hours?: No Current Medications - Current Medications Current Medications: Active Medications Acetaminophen (Acetaminophen 325 Mg Tablet) 650 mg PO Q4HR PRN PRN Reason: Pain 1 to 4 Last Admin: 09/27/20 00:57 Dose: 650 mg Documented by: Atorvastatin Calcium (Atorvastatin 40 Mg Tablet) 40 mg PO HS [facility] Last Admin: 09/27/20 21:22 Dose: 40 mg Documented by: Carbidopa/Levodopa (Carbidopa/Levodopa 25 Mg/250 Mg Tablet) 1 tab PO 0800,2000 [facility] Last Admin: 09/28/20 09:01 Dose: 1 tab Documented by: Carbidopa/Levodopa (Carbidopa/Levodopa 25 Mg/250 Mg Tablet) 2 tab PO 0200,1400 [facility] Last Admin: 09/28/20 14:25 Dose: 2 tab Documented by: Cholecalciferol (Cholecalciferol 25 Mcg Tablet) 25 mcg PO BID [facility] Last Admin: 09/28/20 09:02 Dose: 25 mcg Documented by: Diltiazem HCl (Diltiazem Cd 120 Mg Capsule) 120 mg PO DAILY [facility] Last Admin: 09/28/20 09:01 Dose: 120 mg Documented by: Docusate Sodium (Docusate Sodium 250 Mg Capsule) 250 mg PO DAILY PRN PRN Reason: Constipation Famotidine (Famotidine 20 Mg Tablet) 20 mg PO BID [facility] Last Admin: 09/28/20 09:01 Dose: 20 mg Documented by: Insulin Aspart (Insulin Aspart 300 Unit/3 Ml Pen) 1 - 9 unit SUBQ 0800,1200,170 0,2100 [facility]; Protocol Last Admin: 09/28/20 11:53 Dose: 1 unit Documented by: Insulin Glargine (Insulin Glargine 300 Unit/3 Ml Pen) 30 unit SUBQ DAILY [facility] Last Admin: 09/28/20 09:18 Dose: 30 unit Documented by: Magnesium Oxide (Magnesium Oxide 400 Mg Tablet) 400 mg PO DAILYWM [facility] Last Admin: 09/28/20 09:01 Dose: 400 mg Documented by: Meclizine HCl (Meclizine 12.5 Mg Tablet) 12.5 mg PO Q6H PRN PRN Reason: Vertigo Methocarbamol (Methocarbamol 500 Mg Tablet) 500 mg PO DAILY [facility] Last Admin: 09/28/20 09:01 Dose: 500 mg Documented by: Metoprolol Tartrate (Metoprolol Tartrate 25 Mg Tablet) 25 mg PO BID [facility] Neomycin/Polymyxin/Hydrocortisone (Neomycin/Polymyx/Hc Otic Drops) 4 drops EACHEAR TID [facility] Last Admin: 09/28/20 14:26 Dose: 4 drops Documented by: Rivaroxaban (Rivaroxaban 10 Mg Tablet) 20 mg PO QDDINNER [facility] Last Admin: 09/27/20 17:06 Dose: 20 mg Documented by: Senna (Senna 8.6 Mg Tablet) 17.2 mg PO DAILY [facility] Last Admin: 09/28/20 09:02 Dose: 17.2 mg Documented by: Sodium Chloride (Sodium Chloride Flush 0.9% 10 Ml Syringe) 10 ml IVP PRN PRN PRN Reason: NEEDED PER PROVIDER ORDERS Sodium Chloride (Sodium Chloride Flush 0.9% 10 Ml Syringe) 10 ml IVP 0100,0900,1700 [facility] Last Admin: 09/28/20 09:02 Dose: 10 ml Documented by: Tamsulosin HCl (Tamsulosin 0.4 Mg Capsule) 0.4 mg PO DAILY [facility] Last Admin: 09/28/20 09:01 Dose: 0.4 mg Documented by: Throat Lozenges (Benzocaine/Menthol Lozenge) 1 lozenge MM Q2HR PRN PRN Reason: Throat pain Last Admin: 09/26/20 06:14 Dose: 1 lozenge Documented by: Triamcinolone Acetonide (Triamcinolone 0.1% Oint 15 Gm Tube) 1 applic TOP BID [facility] Last Admin: 09/28/20 09:13 Dose: 1 applic Documented by: Metformin HCl [Glucophage Xr] 500 mg PO BID 10/02/13 Omeprazole 20 mg PO BID 10/02/13 diltiaZEM CD [Cardizem Cd] 240 mg PO DAILY 10/02/13 Cholecalciferol (Vitamin D3) [Vitamin D-3] 1,000 unit PO BID 10/05/13 Triamcinolone 0.1% Oint [Kenalog 0.1% Oint] 1 applic TD BID 12/03/15 Atorvastatin Calcium 40 mg PO DAILY 01/24/16 Insulin Glargine,Hum.rec.anlog [Lantus] 30 unit SQ DAILY 01/24/16 Metoprolol Tartrate 12.5 mg PO BID 01/24/16 Senna [Senokot] 2 tab PO DAILY 03/09/17 Carbidopa/Levodopa [Carbidopa-Levodopa 25-250 Tab] 1 each PO QID 01/05/20 Docusate Sodium [Dss] 250 mg PO DAILY PRN 01/05/20 Ergocalciferol (Vitamin D2) [Drisdol] 1,250 mcg PO ONCE 01/05/20 methocarbamoL [Methocarbamol] 1,000 mg PO BID 01/05/20 Rivaroxaban [Xarelto] 20 mg PO QPM 07/23/20 Entacapone [Comtan] 1 tab PO DAILY 09/25/20 Amlodipine Besylate [Norvasc] 2.5 mg PO DAILY 09/26/20 Carvedilol [Coreg] 25 mg PO BID 09/26/20
[2020-09-28] MEDS: RIVAROXABAN 10 MG TABLET PO SCH (16:35)
[2020-09-28] MEDS: ATORVASTATIN 40 MG TABLET PO SCH (20:20)
[2020-09-29] MEDS: SODIUM CHLORIDE FLUSH 0.9% 10 ML SYRINGE IVP SCH ×3 (00:19→16:56)
[2020-09-29] MEDS: CARBIDOPA/LEVODOPA 25 MG/250 MG TABLET PO SCH ×4 (01:52→20:30)
[2020-09-29 05:27] LABS: BASOPHILS % (AUTO) 0.6 %; EOSINOPHILS # (AUTO) 0.1 10^3/uL (0.0-0.7); HCT - HEMATOCRIT 34.5 % (42.0-52.0); LYMPHOCYTES # (AUTO) 1.2 10^3/uL (1.5-3.5); LYMPHOCYTES % (AUTO) 17.3 %; MEAN CORPUSCULAR HEMOGLOBIN 31.9 pg (27.0-31.0); MEAN CORPUSCULAR HGB CONC 31.9 g/dL (32.0-36.0); MEAN PLATELET VOLUME 11.2 fL (7.4-11.4); MONOCYTES # (AUTO) 0.7 10^3/uL (0.0-1.0); MONOCYTES % (AUTO) 10.4 %; NEUTROPHILS # (AUTO) 4.8 10^3/uL (1.5-6.6); NEUTROPHILS % (AUTO) 70.4 %; PLT - PLATELET COUNT 208 10^3/uL (130-450); RED BLOOD COUNT 3.45 10^6/uL (4.70-6.10); RED CELL DISTRIBUTION WIDTH 13.2 % (12.0-15.0); WHITE BLOOD COUNT 6.8 x10^3/uL (4.8-10.8)
[2020-09-29 05:39] LABS: CALCIUM 8.5 mg/dL (8.5-10.3); CREATININE 1.9 mg/dL (0.6-1.2); MAGNESIUM 1.7 mg/dL (1.7-2.8); POTASSIUM 3.8 mmol/L (3.5-5.0)
[2020-09-29] MEDS: NEOMYCIN/POLYMYX/HC OTIC DROPS EACHEAR SCH ×3 (06:03→20:31)
[2020-09-29] MEDS: METOPROLOL TARTRATE 25 MG TABLET PO SCH ×2 (08:33→20:33)
[2020-09-29] MEDS: TAMSULOSIN 0.4 MG CAPSULE PO SCH (08:33)
[2020-09-29] MEDS: FAMOTIDINE 20 MG TABLET PO SCH ×2 (08:33→20:30)
[2020-09-29] MEDS: CHOLECALCIFEROL 25 MCG TABLET PO SCH ×2 (08:37→20:30)
[2020-09-29] MEDS: methocarbamoL 500 MG TABLET PO SCH (08:37)
[2020-09-29] MEDS: diltiaZEM CD 120 MG CAPSULE PO SCH (08:37)
[2020-09-29] MEDS: SENNA 8.6 MG TABLET PO SCH (08:37)
[2020-09-29] MEDS: MAGNESIUM OXIDE 400 MG TABLET PO SCH (08:37)
[2020-09-29] MEDS: INSULIN ASPART 300 UNIT/3 ML PEN SUBQ SCH ×4 (08:38→20:28)
[2020-09-29] MEDS: TRIAMCINOLONE 0.1% OINT 15 GM TUBE TOP SCH ×2 (08:40→20:31)
[2020-09-29] MEDS: INSULIN GLARGINE 300 UNIT/3 ML PEN SUBQ SCH (08:41)
--- NOTE | 2020-09-29 14:32 | PROVIDER PROGRESS NOTE ---
Assessment/Plan - Problem List (1) [id number] kidney injury Assessment/Plan: 3/3 improved and stable as pt's baseline. pt is pending to d/c SNF by social services director's disposition plan /2 improved. creatinine 1.9 as his baseline about 2 months ago. CXR reveal pt has mild Pulmonary congestion, so we will hold intravenous IV fluids. continue lab monitor, continue avoid nephotoxins 3/ improved, Creatinine is 2.0 today, Patient usually had creatinine is around 1.6. it is likely prerenal azotemia, will continue IVF, continue lab monitor (2) Urinary retention Patient can urinate by himself, patient does not need Major catheter, we will continue Flomax for pt (3) Near syncope 3/3 resolved. pt present HR at 30 in the admission, it may be secondary to overmedicated beta block. Now Orthostatic vitals were negative so far. pt's troponin is negative, EKG reveals afib as his hx, slight increased his dosage of metoprolol and hold home coreg , continue Diltiazem CD new dose, which was decreased by 50% to 120 mg p.o. daily because of bradycardia. Continue telemetry Echocardiogram reveal preserved EF with 52 mmHG RVSP. (4) Atrial fibrillation 3/3 controlled heart rate with reduced cardizem CD dosage and new metoprolol dosage and hold coreg. continue Xarelto. 3/2 continue diltiazem CD 120 mg p.o. daily, increased metoprolol tartrate to 25 mg p.o. twice daily since pt has slight elevated BP, and continue Xarelto 20 mg p.o. daily stable, continue diltiazem CD 120 mg p.o. daily, metoprolol tartrate 25 mg p.o. twice daily and Xarelto 20 mg p.o. daily at dinner. (5) Diabetes mellitus continue hold patient's Metformin due to THOMAS pt's glucose is good controlled now. A1C is 6.4. continue home meds Lantus 30 units subcu daily. Sliding scale insulin. Accu- Cheks before every meal and at bedtime. (6) Hyperlipidemia continue home meds atorvastatin 40 mg p.o. nightly (7) Parkinson disease stable, continue on carbidopa/levodopa 25-250 tab. 1 tablet p.o. 4 times daily, entacapone 200 mg p.o. daily, will order Pt's own med, if it can be brought in. agree Dr. Maria E Bland's advise no further driving or be retested, based on his severe Parkinson's, can not hear, tremor on his bilateral hands (8) Hypertension 3/2 slight elevated, increased metoprolol to 25 mg bid stable, continue diltiazem CD 120 mg p.o. daily, Metoprolol 12.5mg po bid (9) GERD (gastroesophageal reflux disease) Conclusion/Plan: Today 10 mg IV twice daily ordered. (10) hard of hearing Communication can only be with writing (11)weakness PT/OT evaluated and treated for pt, recommend to SNF, consult with social services director for safely d/c disposition. - Current Meds Current Meds: Current Medications Generic Name Dose Route Start Last Admin Trade Name Freq PRN Reason Stop Dose Admin Acetaminophen 650 mg 09/25/20 16:26 09/27/20 00:57 Acetaminophen 325 Mg Tablet PO 650 mg Q4HR PRN Administration Pain 1 to 4 Atorvastatin Calcium 40 mg 09/26/20 21:00 09/28/20 20:20 Atorvastatin 40 Mg Tablet PO 40 mg HS PEREZ Administration Carbidopa/Levodopa 1 tab 09/27/20 20:00 09/29/20 08:37 Carbidopa/Levodopa 25 Mg/250 Mg Tablet PO 1 tab 0800,2000 PEREZ Administration Carbidopa/Levodopa 2 tab 09/27/20 14:00 09/29/20 01:52 Carbidopa/Levodopa 25 Mg/250 Mg Tablet PO 2 tab 0200,1400 PEREZ Administration Cholecalciferol 25 mcg 09/26/20 11:00 09/29/20 08:37 Cholecalciferol 25 Mcg Tablet PO 25 mcg BID PEREZ Administration Diltiazem HCl 120 mg 09/26/20 09:00 09/29/20 08:37 Diltiazem Cd 120 Mg Capsule PO 120 mg DAILY PEREZ Administration Famotidine 20 mg 09/25/20 21:46 09/29/20 08:33 Famotidine 20 Mg Tablet PO 20 mg BID PEREZ Administration Insulin Aspart 1 - 9 unit 09/25/20 21:00 09/29/20 11:52 Insulin Aspart 300 Unit/3 Ml Pen SUBQ Not Given 0800,1200,1700,2100 [facility] Protocol Insulin Glargine 30 unit 09/26/20 09:00 09/29/20 08:41 Insulin Glargine 300 Unit/3 Ml Pen SUBQ 30 unit DAILY PEREZ Administration Magnesium Oxide 400 mg 09/28/20 08:00 09/29/20 08:37 Magnesium Oxide 400 Mg Tablet PO 400 mg DAILYWM PEREZ Administration Methocarbamol 500 mg 09/26/20 09:00 09/29/20 08:37 Methocarbamol 500 Mg Tablet PO 500 mg DAILY PEREZ Administration Metoprolol Tartrate 25 mg 09/28/20 15:00 09/29/20 08:33 Metoprolol Tartrate 25 Mg Tablet PO 25 mg BID PEREZ Administration Neomycin/Polymyxin/Hydrocortisone 4 drops 09/25/20 22:00 09/29/20 06:03 Neomycin/Polymyx/Hc Otic Drops EACHEAR 4 drops TID PEREZ Administration Rivaroxaban 20 mg 09/25/20 18:00 09/28/20 16:35 Rivaroxaban 10 Mg Tablet PO 20 mg QDDINNER PEREZ Administration Senna 17.2 mg 09/26/20 09:00 09/29/20 08:37 Senna 8.6 Mg Tablet PO 17.2 mg DAILY PEREZ Administration Sodium Chloride 10 ml 09/25/20 17:00 09/29/20 08:40 Sodium Chloride Flush 0.9% 10 Ml Syringe IVP 10 ml 0100,0900,1700 PEREZ Administration Tamsulosin HCl 0.4 mg 09/26/20 11:00 09/29/20 08:33 Tamsulosin 0.4 Mg Capsule PO 0.4 mg DAILY PEREZ Administration Throat Lozenges 1 lozenge 09/26/20 05:34 09/26/20 06:14 Benzocaine/Menthol Lozenge MM 1 lozenge Q2HR PRN Administration Throat pain Triamcinolone Acetonide 1 applic 09/25/20 21:00 09/29/20 08:40 Triamcinolone 0.1% Oint 15 Gm Tube TOP 1 applic BID PEREZ Administration - Lab Result Fish Bone Diagrams: 09/29/20 04:56 09/29/20 04:56 - Additional Planning My Orders: My Active Orders 09/28/20 15:00 Metoprolol Tartrate [Lopressor] 25 mg PO BID 09/30/20 05:00 BMP - BASIC METABOLIC PANEL [CHEM] DAILYLAB CBC - COMP BLD CT W/AUTO DIFF [HEME] DAILYLAB 09/30/20 09:00 Amlodipine Besylate [Norvasc] 2.5 mg PO DAILY 10/01/20 05:00 BMP - BASIC METABOLIC PANEL [CHEM] DAILYLAB CBC - COMP BLD CT W/AUTO DIFF [HEME] DAILYLAB Subjective - Subjective Patient Reports: Feeling Better Objective Vital Signs: Vital Signs - 24 hr 09/28/20 09/28/20 09/28/20 16:38 17:00 21:00 Temperature 36.4 C L 36.5 C Heart Rate [ 73 69 Brachial] Respiratory 18 18 Rate Blood Pressure 140/88 H Blood Pressure 124/87 H 155/103 H [Left Brachial artery] Blood Pressure [Right Brachial artery] O2 Saturation 100 99 09/29/20 09/29/20 09/29/20 00:46 05:36 08:10 Temperature 36.7 C 36.4 C L 36.4 C L Heart Rate [ 72 60 72 Brachial] Respiratory 19 17 14 Rate Blood Pressure Blood Pressure [Left Brachial artery] Blood Pressure 164/85 H 144/78 H 185/95 H [Right Brachial artery] O2 Saturation 100 100 100 09/29/20 09/29/20 08:33 11:36 Temperature 36.8 C Heart Rate [ 72 Brachial] Respiratory 16 Rate Blood Pressure 173/84 H Blood Pressure 148/75 H [Left Brachial artery] Blood Pressure [Right Brachial artery] O2 Saturation 100 Oxygen O2 Source Room air I&O (Last 24 Hrs): Intake and Output Totals x24h 09/27/20 09/28/20 09/29/20 23:59 23:59 23:59 Intake Total 2964.333 1280 600 Balance 2964.333 1280 600 General: Alert, Cooperative, No acute distress HEENT: Atraumatic Neck: Supple Lymphatic: no adenopathy Neuro: Alert, Non Focal Cardiovascular: Regular rate, Normal S1, Normal S2 Respiratory: Chest non-tender, No respiratory distress Extremities: Normal pulses - Results Results: Laboratory Results WBC 6.8 x10^3/uL (4.8-10.8) 09/29/20 04:56 RBC 3.45 10^6/uL (4.70-6.10) L 09/29/20 04:56 Hgb 11.0 g/dL (14.0-18.0) L 09/29/20 04:56 Hct 34.5 % (42.0-52.0) L 09/29/20 04:56 MCV 100.0 fL (80.0-94.0) H 09/29/20 04:56 MCH 31.9 pg (27.0-31.0) H 09/29/20 04:56 MCHC 31.9 g/dL (32.0-36.0) L 09/29/20 04:56 RDW 13.2 % (12.0-15.0) 09/29/20 04:56 Plt Count 208 10^3/uL (130-450) 09/29/20 04:56 MPV 11.2 fL (7.4-11.4) 09/29/20 04:56 Neut # (Auto) 4.8 10^3/uL (1.5-6.6) 09/29/20 04:56 Lymph # (Auto) 1.2 10^3/uL (1.5-3.5) L 09/29/20 04:56 [place] # (Auto) 0.7 10^3/uL (0.0-1.0) 09/29/20 04:56 Eos # (Auto) 0.1 10^3/uL (0.0-0.7) 09/29/20 04:56 Baso # (Auto) 0.0 10^3/uL (0.0-0.1) 09/29/20 04:56 Absolute Nucleated RBC 0.00 x10^3/uL 09/29/20 04:56 Nucleated RBC % 0.0 /100WBC 09/29/20 04:56 Sodium 138 mmol/L (135-145) 09/29/20 04:56 Potassium 3.8 mmol/L (3.5-5.0) 09/29/20 04:56 Chloride 111 mmol/L (101-111) 09/29/20 04:56 Carbon Dioxide 19 mmol/L (21-32) L 09/29/20 04:56 Anion Gap 8.0 (6-13) 09/29/20 04:56 BUN 29 mg/dL (6-20) H 09/29/20 04:56 Creatinine 1.9 mg/dL (0.6-1.2) H 09/29/20 04:56 Estimated GFR (MDRD) 35 (>89) L 09/29/20 04:56 Glucose 89 mg/dL (70-100) 09/29/20 04:56 POC Whole Bld Glucose 181 mg/dL (70 - 100) H 09/29/20 11:08 Estimat Average Glucose 137 mg/dL (70-100) H 09/27/20 07:51 Hemoglobin A1c % 6.4 % (4.27-6.07) H 09/27/20 07:51 Calcium 8.5 mg/dL (8.5-10.3) 09/29/20 04:56 Magnesium 1.7 mg/dL (1.7-2.8) 09/29/20 04:56 Total Bilirubin 0.7 mg/dL (0.2-1.0) 09/25/20 15:00 AST 12 IU/L (10-42) 09/25/20 15:00 ALT < 10 IU/L (10-60) L 09/25/20 15:00 Alkaline Phosphatase 45 IU/L (42-121) 09/25/20 15:00 Troponin I High Sens 10.6 ng/L (2.3-19.7) 09/27/20 14:35 B-Natriuretic Peptide 271 pg/mL (5-100) H 09/25/20 15:00 Total Protein 5.9 g/dL (6.7-8.2) L 09/25/20 15:00 Albumin 3.3 g/dL (3.2-5.5) 09/25/20 15:00 Globulin 2.6 g/dL (2.1-4.2) 09/25/20 15:00 Albumin/Globulin Ratio 1.3 (1.0-2.2) 09/25/20 15:00 Lipase 43 U/L (22-51) 09/25/20 15:00 Urine Color YELLOW 09/25/20 15:45 Urine Clarity CLEAR (CLEAR) 09/25/20 15:45 Urine pH 5.5 PH (5.0-7.5) 09/25/20 15:45 Ur Specific [place]atz[place] >=1.030 (1.002-1.030) H 09/25/20 15:45 Urine Protein >=300 mg/dL (NEGATIVE) H 09/25/20 15:45 Urine Glucose (UA) NEGATIVE mg/dL (NEGATIVE) 09/25/20 15:45 Urine Ketones NEGATIVE mg/dL (NEGATIVE) 09/25/20 15:45 Urine Occult Blood NEGATIVE (NEGATIVE) 09/25/20 15:45 Urine Nitrite NEGATIVE (NEGATIVE) 09/25/20 15:45 Urine Bilirubin NEGATIVE (NEGATIVE) 09/25/20 15:45 Urine Urobilinogen 0.2 (NORMAL) E.U./dL (NORMAL) 09/25/20 15:45 Ur Leukocyte Esterase NEGATIVE (NEGATIVE) 09/25/20 15:45 Urine RBC 0-5 /HPF (0-5) 09/25/20 15:45 Urine WBC 0-3 /HPF (0-3) 09/25/20 15:45 Ur Squamous Epith Cells FEW Squamous (<= Few) 09/25/20 15:45 Urine Bacteria Rare /HPF (None Seen) 09/25/20 15:45 Urine Casts 0-2 Fine Granular /LPF 09/25/20 15:45 Ur Microscopic Review INDICATED 09/25/20 15:45 Urine Culture Comments NOT INDICATED 09/25/20 15:45 Nasal Adenovirus (PCR) NOT DETECTED 09/25/20 15:45 Nasal B. parapertussis DNA (PCR) NOT DETECTED 09/25/20 15:45 Nasal Coronavir 229E PCR NOT DETECTED 09/25/20 15:45 Nasal Coronavir HKU1 PCR NOT DETECTED 09/25/20 15:45 Nasal Coronavir NL63 PCR NOT DETECTED 09/25/20 15:45 Nasal Coronavir OC43 PCR NOT DETECTED 09/25/20 15:45 Nasal Enterovir/Rhinovir PCR NOT DETECTED 09/25/20 15:45 Nasal Influenza B PCR NOT DETECTED 09/25/20 15:45 Nasal Influenza A PCR NOT DETECTED 09/25/20 15:45 Nasal Parainfluen 1 PCR NOT DETECTED 09/25/20 15:45 Nasal Parainfluen 2 PCR NOT DETECTED 09/25/20 15:45 Nasal Parainfluen 3 PCR NOT DETECTED 09/25/20 15:45 Nasal Parainfluen 4 PCR NOT DETECTED 09/25/20 15:45 Nasal RSV (PCR) NOT DETECTED 09/25/20 15:45 Nasal B.pertussis DNA PCR NOT DETECTED 09/25/20 15:45 Nasal C.pneumoniae (PCR) NOT DETECTED 09/25/20 15:45 Ye Human Metapneumo PCR NOT DETECTED 09/25/20 15:45 Nasal M.pneumoniae (PCR) NOT DETECTED 09/25/20 15:45 Nasal SARS-CoV-2 (PCR) NOT DETECTED 09/25/20 15:45 - Procedures Procedures: Procedures VENOUS CATHETERIZATION NEC (04/17/14) Sepsis Event Note (H) - Evaluation Current Stage of Sepsis: Ruled out ABX Reporting Has patient been on IV antibiotics over the past 48 hours?: No Current Medications - Current Medications Current Medications: Active Medications Acetaminophen (Acetaminophen 325 Mg Tablet) 650 mg PO Q4HR PRN PRN Reason: Pain 1 to 4 Last Admin: 09/27/20 00:57 Dose: 650 mg Documented by: Amlodipine Besylate (Amlodipine 5 Mg Tablet) 2.5 mg PO DAILY [facility] Atorvastatin Calcium (Atorvastatin 40 Mg Tablet) 40 mg PO HS [facility] Last Admin: 09/28/20 20:20 Dose: 40 mg Documented by: Carbidopa/Levodopa (Carbidopa/Levodopa 25 Mg/250 Mg Tablet) 1 tab PO 0800,2000 [facility] Last Admin: 09/29/20 08:37 Dose: 1 tab Documented by: Carbidopa/Levodopa (Carbidopa/Levodopa 25 Mg/250 Mg Tablet) 2 tab PO 0200,1400 [facility] Last Admin: 09/29/20 14:33 Dose: 2 tab Documented by: Cholecalciferol (Cholecalciferol 25 Mcg Tablet) 25 mcg PO BID [facility] Last Admin: 09/29/20 08:37 Dose: 25 mcg Documented by: Diltiazem HCl (Diltiazem Cd 120 Mg Capsule) 120 mg PO DAILY [facility] Last Admin: 09/29/20 08:37 Dose: 120 mg Documented by: Docusate Sodium (Docusate Sodium 250 Mg Capsule) 250 mg PO DAILY PRN PRN Reason: Constipation Famotidine (Famotidine 20 Mg Tablet) 20 mg PO BID [facility] Last Admin: 09/29/20 08:33 Dose: 20 mg Documented by: Insulin Aspart (Insulin Aspart 300 Unit/3 Ml Pen) 1 - 9 unit SUBQ 0800,1200,1700,2100 [facility]; Protocol Last Admin: 09/29/20 11:52 Dose: Not Given Documented by: Insulin Glargine (Insulin Glargine 300 Unit/3 Ml Pen) 30 unit SUBQ DAILY [facility] Last Admin: 09/29/20 08:41 Dose: 30 unit Documented by: Magnesium Oxide (Magnesium Oxide 400 Mg Tablet) 400 mg PO DAILYWM [facility] Last Admin: 09/29/20 08:37 Dose: 400 mg Documented by: Meclizine HCl (Meclizine 12.5 Mg Tablet) 12.5 mg PO Q6H PRN PRN Reason: Vertigo Methocarbamol (Methocarbamol 500 Mg Tablet) 500 mg PO DAILY [facility] Last Admin: 09/29/20 08:37 Dose: 500 mg Documented by: Metoprolol Tartrate (Metoprolol Tartrate 25 Mg Tablet) 25 mg PO BID [facility] Last Admin: 09/29/20 08:33 Dose: 25 mg Documented by: Neomycin/Polymyxin/Hydrocortisone (Neomycin/Polymyx/Hc Otic Drops) 4 drops EACHEAR TID [facility] Last Admin: 09/29/20 14:38 Dose: 4 drops Documented by: Rivaroxaban (Rivaroxaban 10 Mg Tablet) 20 mg PO QDDINNER [facility] Last Admin: 09/28/20 16:35 Dose: 20 mg Documented by: Senna (Senna 8.6 Mg Tablet) 17.2 mg PO DAILY [facility] Last Admin: 09/29/20 08:37 Dose: 17.2 mg Documented by: Sodium Chloride (Sodium Chloride Flush 0.9% 10 Ml Syringe) 10 ml IVP PRN PRN PRN Reason: NEEDED PER PROVIDER ORDERS Sodium Chloride (Sodium Chloride Flush 0.9% 10 Ml Syringe) 10 ml IVP 0100,0900,1700 [facility] Last Admin: 09/29/20 08:40 Dose: 10 ml Documented by: Tamsulosin HCl (Tamsulosin 0.4 Mg Capsule) 0.4 mg PO DAILY [facility] Last Admin: 09/29/20 08:33 Dose: 0.4 mg Documented by: Throat Lozenges (Benzocaine/Menthol Lozenge) 1 lozenge MM Q2HR PRN PRN Reason: Throat pain Last Admin: 09/26/20 06:14 Dose: 1 lozenge Documented by: Triamcinolone Acetonide (Triamcinolone 0.1% Oint 15 Gm Tube) 1 applic TOP BID [facility] Last Admin: 09/29/20 08:40 Dose: 1 applic Documented by: Metformin HCl [Glucophage Xr] 500 mg PO BID 10/02/13 Omeprazole 20 mg PO BID 10/02/13 diltiaZEM CD [Cardizem Cd] 240 mg PO DAILY 10/02/13 Cholecalciferol (Vitamin D3) [Vitamin D-3] 1,000 unit PO BID 10/05/13 Triamcinolone 0.1% Oint [Kenalog 0.1% Oint] 1 applic TD BID 12/03/15 Atorvastatin Calcium 40 mg PO DAILY 01/24/16 Insulin Glargine,Hum.rec.anlog [Lantus] 30 unit SQ DAILY 01/24/16 Metoprolol Tartrate 12.5 mg PO BID 01/24/16 Senna [Senokot] 2 tab PO DAILY 03/09/17 Carbidopa/Levodopa [Carbidopa-Levodopa 25-250 Tab] 1 each PO QID 01/05/20 Docusate Sodium [Dss] 250 mg PO DAILY PRN 01/05/20 Ergocalciferol (Vitamin D2) [Drisdol] 1,250 mcg PO ONCE 01/05/20 methocarbamoL [Methocarbamol] 1,000 mg PO BID 01/05/20 Rivaroxaban [Xarelto] 20 mg PO QPM 07/23/20 Entacapone [Comtan] 1 tab PO DAILY 09/25/20 Amlodipine Besylate [Norvasc] 2.5 mg PO DAILY 09/26/20 Carvedilol [Coreg] 25 mg PO BID 09/26/20
[2020-09-29] MEDS: RIVAROXABAN 10 MG TABLET PO SCH (16:56)
[2020-09-29] MEDS: ACETAMINOPHEN 325 MG TABLET PO PRN (18:18)
[2020-09-29] MEDS: ATORVASTATIN 40 MG TABLET PO SCH (20:30)
[2020-09-30] MEDS: CARBIDOPA/LEVODOPA 25 MG/250 MG TABLET PO SCH ×2 (01:32→10:50)
[2020-09-30] MEDS: SODIUM CHLORIDE FLUSH 0.9% 10 ML SYRINGE IVP SCH ×2 (01:33→10:50)
[2020-09-30] MEDS: ACETAMINOPHEN 325 MG TABLET PO PRN (03:52)
[2020-09-30 04:59] LABS: BASOPHILS % (AUTO) 0.4 %; EOSINOPHILS # (AUTO) 0.1 10^3/uL (0.0-0.7); EOSINOPHILS % (AUTO) 1.5 %; HCT - HEMATOCRIT 33.9 % (42.0-52.0); HGB - HEMOGLOBIN 10.9 g/dL (14.0-18.0); LYMPHOCYTES # (AUTO) 1.4 10^3/uL (1.5-3.5); LYMPHOCYTES % (AUTO) 20.8 %; MEAN CORPUSCULAR HEMOGLOBIN 31.3 pg (27.0-31.0); MEAN CORPUSCULAR HGB CONC 32.2 g/dL (32.0-36.0); MEAN CORPUSCULAR VOLUME 97.4 fL (80.0-94.0); MEAN PLATELET VOLUME 11.3 fL (7.4-11.4); MONOCYTES # (AUTO) 0.7 10^3/uL (0.0-1.0); MONOCYTES % (AUTO) 9.9 %; NEUTROPHILS # (AUTO) 4.5 10^3/uL (1.5-6.6); NEUTROPHILS % (AUTO) 67.3 %; PLT - PLATELET COUNT 206 10^3/uL (130-450); RED BLOOD COUNT 3.48 10^6/uL (4.70-6.10); WHITE BLOOD COUNT 6.7 x10^3/uL (4.8-10.8)
[2020-09-30 05:01] LABS: CALCIUM 8.4 mg/dL (8.5-10.3); CREATININE 1.9 mg/dL (0.6-1.2); POTASSIUM 3.9 mmol/L (3.5-5.0)
[2020-09-30] MEDS: NEOMYCIN/POLYMYX/HC OTIC DROPS EACHEAR SCH (06:04)
[2020-09-30] MEDS: INSULIN ASPART 300 UNIT/3 ML PEN SUBQ SCH (08:19)
[2020-09-30] MEDS: MAGNESIUM OXIDE 400 MG TABLET PO SCH (08:19)
[2020-09-30 08:24] VITALS: BP 155/82
[2020-09-30] MEDS: diltiaZEM CD 120 MG CAPSULE PO SCH (08:24)
[2020-09-30] MEDS: methocarbamoL 500 MG TABLET PO SCH (08:24)
[2020-09-30] MEDS: CHOLECALCIFEROL 25 MCG TABLET PO SCH (08:24)
[2020-09-30] MEDS: FAMOTIDINE 20 MG TABLET PO SCH (08:25)
[2020-09-30] MEDS: INSULIN GLARGINE 300 UNIT/3 ML PEN SUBQ SCH (08:25)
[2020-09-30] MEDS: METOPROLOL TARTRATE 25 MG TABLET PO SCH (08:25)
--- NOTE | 2020-09-30 08:45 | Discharge Plan ---
Discharge Plan Problem Reviewed?: Yes Disposition: Home, Self Care Condition: Stable Prescriptions: diltiaZEM CD [Cardizem Cd] 120 mg PO DAILY #30 cap Tamsulosin [Flomax] 0.4 mg PO DAILY #30 cap Metoprolol Tartrate [Lopressor] 25 mg PO BID #60 tablet Diet: Diabetic Activity Restrictions: Activity as Tolerated Shower Restrictions: No (fall precaution) Instruction Topics: Dehydration, Atrial Fibrillation, Hypoglycemia, Hyperglycemia, Diabetes Type 2 Coping Health Concerns: acute kidney injury/dehydration, a fib Plan of Treatment: You are found to have dehydration and acute on chronic renal deficiency, advise you keep hydration, hold your Metformin now to protect your kidney. Your insulin is good control for your glucose level, and your A1c is 6.4 now. Your heart rate was found to have significant bradycardia in the admission, your home medication Cardizzem dosage is reduced to 120mc daily, and hold Coreg and your Metoprolol dosage is 25 mg bid now, resume other your home medications as the scheduled. Care Goals: stabilization and improvement of your medical conditions Additional Instructions or Follow Up instructions: You may followup with your PCP in one week. Should your symptoms return or worsen, you may present ER or call 911 for help Follow-Up Care: Outpatient Rehab - PT, Outpatient Rehab - OT No Smoking: If you smoke, Please STOP! Call for help.
[2020-09-30] MEDS ORDERED: amLODIPine 5 MG TABLET PO SCH (09:00)
--- NOTE | 2020-09-30 09:08 | DISCHARGE SUMMARY ---
Discharge Summary Admit Date: 09/25/20 Discharge Date: 09/30/20 Discharging Provider: Trevor Senior Primary Care Provider: Dr. Santiago Marcum Condition at Discharge: Stable Discharge Disposition: 01 Home, Self Care Discharge Facility Name: home - DIAGNOSES Discharge Diagnoses with Status of Each Condition: (1) [id number] kidney injury acute phrase was resolve and stable, creatinine is stable at 1.9 as his baseline. advise pt keep hydration at home. (2) Urinary retention resolve. pt is prescribe Flomax (3) Near syncope resolved. pt presented HR at 30 in the admission, it is likely caused by overmedicated beta samuel and overmedicated Cardizem. Pt had Cardizem 240mg daily, Coreg 25mg bid, and Metoprolol 12.5 bid at the admission. Now pt's home meds has Cardizem 120mg daily, hold Coreg 25 mg bid, continue Metoprolol 25 bid. Then pt has stable HR and controlled BP. pt has no any more near syncope. Echocardiogram reveal preserved EF with 52 mmHG RVSP. (4) Atrial fibrillation stable, continue Xarelto (5) Diabetes mellitus stable, hold patient's Metformin due to CKD, his A1C is 6.4. continue home meds Lantus 30 units subcu daily. (6) Hyperlipidemia stable (7) Parkinson disease stable, continue home meds (8) Hypertension stable (9) GERD (gastroesophageal reflux disease) stable (10) hard of hearing chronic as hx. pt is very difficult to hear, must be writing to communicate with him. (11)weakness PT/OT evaluated and treated for pt, recommend to SNF, But pt changed his mind and refused to d/c to SNF now and requested to d/c home today, later he changed his mind again, he called social work assistant to want to have home health PT/OT even pt was already d/c from hospital. social work assistant arranged home health PT/OT/Aids for pt. (12)bradycardia pt presented HR at 30 in the admission, it is likely caused by overmedicated beta saumel and overmedicated Cardizem. Pt had Cardizem 240mg daily, Coreg 25mg bid, and Metoprolol 12.5 bid at the admission. Now pt's home meds has Cardizem 120mg daily, hold Coreg 25 mg bid, continue Metoprolol 25 bid. Then pt has stable HR and controlled BP. pt has no any more near syncope. pt made racist comments to me and an RN on last night. Today he accused me to take away his driving license. I clearly stated to him I DID NOT TAKE AWAY his driving license. - HPI History of Present Illness: refer from Dr. Mayo's HPI on 09/25/20 This HPI was obtained from the ED physicians H&P because the patient is very hard of hearing. It is reported that the patient presented to the ED via EMS with complaint of dizziness. He has history of Parkinson's disease and atrial fibrillation. He was recently started on entacapone for his Parkinson's in addition to carbidopa/levodopa. He was also noted to be intermittently bradycardic on the way to the hospital with heart rates dropping to as low as 30s. He is on carvedilol, amlodipine and diltiazem. His dizziness started after lunch today. It is worse with movement and better at rest. Currently he is resting comfortably in bed. He denies chest pain, dyspnea, vomiting, fever or chills. He reports some abdominal pain. He has been feeling an urge to urinate and also also have a bowel movement but has not been able to so far. He was admitted for further work-up and treatment. - HOSPITAL COURSE Hospital Course: Patient was admitted for complaint of dizziness. Patient was found THOMAS, Severe bradycardia HR was 30. Patient was given intravenous IV fluids, patient THOMAS was resolved. pt presented HR at 30 in the admission, it is likely caused by overmedicated beta samuel and overmedicated Cardizem. Pt had Cardizem 240mg daily, Coreg 25mg bid, and Metoprolol 12.5 bid at the admission. Now pt's home meds has Cardizem 120mg daily, hold Coreg 25 mg bid, continue Metoprolol 25 bid. Then pt has stable HR and controlled BP. pt has no any more near syncope or dizziness. PT/OT evaluated and treated for pt, recommend to SNF, But pt changed his mind and refused to d/c to SNF now and requested to d/c home today, later he changed his mind again, he called social work assistant to want to have home health PT/OT even pt was already d/c from hospital. social work assistant arranged home health PT/OT/Aids for pt. - ALLERGIES Allergies/Adverse Reactions: Allergies Allergy/AdvReac Type Severity Reaction Status Date / Time No Known Drug Allergies Allergy Verified 09/25/20 14:51 - MEDICATIONS Home Medications: Ambulatory Orders Medication Instructions Recorded Confirmed Omeprazole 20 mg PO BID 10/02/13 09/25/20 Cholecalciferol (Vitamin D3) 1,000 unit PO BID 10/05/13 09/25/20 [Vitamin D3] Triamcinolone 0.1% Oint [Kenalog 1 applic TD BID 12/03/15 09/25/20 0.1% Oint] Atorvastatin Calcium 40 mg PO DAILY 01/24/16 09/25/20 Insulin Glargine,Hum.rec.anlog 30 unit SQ DAILY 01/24/16 09/25/20 [Lantus] Meclizine [Antivert] 12.5 mg PO Q6H PRN #10 tablet 10/22/16 09/25/20 Senna [Senokot] 2 tab PO DAILY 03/09/17 09/25/20 Carbidopa/Levodopa 1 each PO QID 01/05/20 09/25/20 [Carbidopa-Levodopa 25-250 Tab] Docusate Sodium [Dss] 250 mg PO DAILY PRN 01/05/20 09/25/20 Ergocalciferol (Vitamin D2) 1,250 mcg PO ONCE 01/05/20 09/25/20 [Drisdol] Neomycin/Polymyx/Hc Otic Drops 4 drops OT TID 10 Days #1 bottle 01/05/20 09/25/20 [Cortisporin Ear Susp] methocarbamoL [Methocarbamol] 1,000 mg PO BID 01/05/20 09/27/20 Rivaroxaban [Xarelto] 20 mg PO QPM 07/23/20 09/25/20 Entacapone [Comtan] 1 tab PO DAILY 09/25/20 09/25/20 Amlodipine Besylate [Norvasc] 2.5 mg PO DAILY 09/26/20 09/27/20 Metoprolol Tartrate [Lopressor] 25 mg PO BID #60 tablet 09/30/20 Tamsulosin [Flomax] 0.4 mg PO DAILY #30 cap 09/30/20 diltiaZEM CD [Cardizem Cd] 120 mg PO DAILY #30 cap 09/30/20 - PHYSICAL EXAM AT DISCHARGE General Appearance: positive: No acute distress, Alert. negative: Lethargic Eyes Bilateral: positive: Normal inspection, PERRL, No lid inflammation ENT: positive: ENT inspection nml, No signs of dehydration. negative: Purulent nasal drainage Neck: positive: Nml inspection, Trachea midline. negative: Thyromegaly, Tracheal deviation Respiratory: positive: Chest non-tender, No respiratory distress. negative: Wheezes Cardiovascular: positive: Regular rate & rhythm, No murmur. negative: Tachycardia, Bradycardia, Systolic murmur, Diastolic murmur Peripheral Pulses: positive: 2+ Abdomen: positive: Non-tender, Nml bowel sounds, No distention. negative: Tenderness, Guarding, Rebound Back: positive: Nml inspection Skin: positive: Color nml, Warm, Dry. negative: Cyanosis, Diaphoresis, Pallor Extremities: positive: Non-tender, Nml appearance, Other (significant tremor in his bilateral hands). negative: Calf tenderness Neurologic/Psychiatric: positive: Oriented x3, Sensation nml, Other (Pt can not hear). negative: Weakness, Sensory loss, Facial droop, Slurred/abnml speech - LABS Result Diagrams: 09/30/20 04:18 09/30/20 04:18 - SEPSIS Current Stage of Sepsis: Ruled out - FOLLOW UP Follow Up: You are found to have dehydration and acute on chronic renal deficiency, advise you keep hydration, hold your Metformin now to protect your kidney. Your insulin is good control for your glucose level, and your A1c is 6.4 now. Your heart rate was found to have significant bradycardia in the admission, your home medication Cardizzem dosage is reduced to 120mc daily, and hold Coreg and your Metoprolol dosage is 25 mg bid now, resume other your home medications as the scheduled. You may followup with your PCP in one week. Should your symptoms return or wo rsen, you may present ER or call 911 for help - TIME SPENT Time Spent in Discharge (Minutes): 30
[2020-09-30] MEDS: TRIAMCINOLONE 0.1% OINT 15 GM TUBE TOP SCH (10:50)
[2020-09-30] MEDS: TAMSULOSIN 0.4 MG CAPSULE PO SCH (10:50)
[2020-09-30] MEDS: SENNA 8.6 MG TABLET PO SCH (10:50)
== END 2020-09-30 11:15 | disposition home or self-care (01) | DRG 683 ==
LOC: EDUNIT# → ED 14:33 → MS2 16:26 → OBSVTOIN 09-26 08:19
PROVIDERS: ADMIT Internal Medicine; ATTEND Nurse Practitioner Gerontology
DX: N17.9 Acute kidney failure, unspecified (principal); I48.20 Chronic atrial fibrillation, unspecified; R00.1 Bradycardia, unspecified; R55 Syncope and collapse; T46.1X5A Adverse effect of calcium-channel blockers, initial encounter; T44.7X5A Adverse effect of beta-adrenoreceptor antagonists, initial encounter; E11.65 Type 2 diabetes mellitus with hyperglycemia; E11.22 Type 2 diabetes mellitus with diabetic chronic kidney disease; I12.9 Hypertensive chronic kidney disease with stage 1 through stage 4 chronic kidney disease, or unspecified chronic kidney disease; N18.9 Chronic kidney disease, unspecified; E11.649 Type 2 diabetes mellitus with hypoglycemia without coma; N40.1 Benign prostatic hyperplasia with lower urinary tract symptoms; R33.9 Retention of urine, unspecified; E86.0 Dehydration; G47.30 Sleep apnea, unspecified; G20 Parkinson's disease; E78.5 Hyperlipidemia, unspecified; K21.9 Gastro-esophageal reflux disease without esophagitis; H91.90 Unspecified hearing loss, unspecified ear; Z20.822 Contact with and (suspected) exposure to COVID-19; Z79.01 Long term (current) use of anticoagulants; Z79.84 Long term (current) use of oral hypoglycemic drugs; Z79.899 Other long term (current) drug therapy; Z91.81 History of falling
CPT/HCPCS: 0202U; 36415; 70450; 71045; 80048; 80053; 81001; 83036; 83690; 83735; 83880; 84484; 85025; 93005; 93306; 96360; 96361; 97110; 97116; 97161; 97165; 97535; 99285; A9270; G0378; J1815; 81003; 87086

== ENCOUNTER 2020-10-03 12:45 | Outpatient (CLI) | payer OTHER | END 2020-10-03 12:46 | disposition critical access hospital (66) | LOC: EMS 12:45 | PROVIDERS: ATTEND Emergency Medicine | DX: R53.1 Weakness (principal) | CPT/HCPCS: A0425; A0429 ==

== ENCOUNTER 2020-10-03 13:06 | Emergency (ER) | payer OTHER ==
[2020-10-03 13:47] LABS: BASOPHILS # (AUTO) 0.1 10^3/uL (0.0-0.1); BASOPHILS % (AUTO) 0.7 %; EOSINOPHILS # (AUTO) 0.1 10^3/uL (0.0-0.7); EOSINOPHILS % (AUTO) 1.3 %; HCT - HEMATOCRIT 35.3 % (42.0-52.0); HGB - HEMOGLOBIN 11.6 g/dL (14.0-18.0); LYMPHOCYTES # (AUTO) 1.2 10^3/uL (1.5-3.5); LYMPHOCYTES % (AUTO) 17.6 %; MEAN CORPUSCULAR HEMOGLOBIN 31.6 pg (27.0-31.0); MEAN CORPUSCULAR HGB CONC 32.9 g/dL (32.0-36.0); MEAN CORPUSCULAR VOLUME 96.2 fL (80.0-94.0); MEAN PLATELET VOLUME 10.8 fL (7.4-11.4); MONOCYTES # (AUTO) 0.7 10^3/uL (0.0-1.0); NEUTROPHILS # (AUTO) 4.9 10^3/uL (1.5-6.6); NEUTROPHILS % (AUTO) 70.1 %; PLT - PLATELET COUNT 208 10^3/uL (130-450); RED BLOOD COUNT 3.67 10^6/uL (4.70-6.10)
[2020-10-03 14:04] LABS: ALBUMIN 3.1 g/dL (3.2-5.5); ALBUMIN/GLOBULIN RATIO 1.1 (1.0-2.2); ALKALINE PHOSPHATASE 47 IU/L (42-121); ALT ALANINE AMINOTRANSFERASE < 10 IU/L (10-60); AST ASPARTATE AMINOTRANSFERASE 14 IU/L (10-42); BILIRUBIN,TOTAL 0.8 mg/dL (0.2-1.0); BUN - BLOOD UREA NITROGEN 37 mg/dL (6-20); CALCIUM 8.4 mg/dL (8.5-10.3); CARBON DIOXIDE - CO2 18 mmol/L (21-32); CHLORIDE 107 mmol/L (101-111); CREATININE 2.3 mg/dL (0.6-1.2); GFR - MDRD 28 (>89); GLUCOSE 157 mg/dL (70-100); LIPASE 49 U/L (22-51); MAGNESIUM 1.5 mg/dL (1.7-2.8); POTASSIUM 4.5 mmol/L (3.5-5.0); SODIUM 137 mmol/L (135-145); TOTAL PROTEIN 5.8 g/dL (6.7-8.2)
--- NOTE | 2020-10-03 14:12 | XRAY Report ---
PROCEDURE: Chest 1 View X-Ray INDICATIONS: fatigue/dyspnea TECHNIQUE: One view of the chest was acquired. COMPARISON: 09/27/2020 FINDINGS: Surgical changes and devices: None. Lungs and pleura: No pleural effusions or pneumothorax. Lungs are clear. Mediastinum: Mediastinal contours appear normal. Top normal heart size. Bones and chest wall: No suspicious bony lesions. Overlying soft tissues appear unremarkable. IMPRESSION: Top normal heart size. No evidence acute pulmonary process. Reviewed by: Jack Nicole MD on 10/03/2020 1:11 PM [facility] Approved by: Jack Nicole MD on 10/03/2020 1:11 PM [facility] Station ID: [id number]
[2020-10-03] MEDS ORDERED: SODIUM CHLORIDE 0.9% 1,000 ML IV STA (14:33)
--- NOTE | 2020-10-03 14:51 | ED Physician Documentation ---
PD HPI SYNCOPE - Stated complaint Stated Complaint: GENERAL WEAKNESS - Chief complaint Chief Complaint: General - History obtained from History obtained from: Patient - History of Present Illness Witnessed: Unwitnessed (Patient states he has had episodes of general weakness and lightheadedness. Had an episode today. He denies fall or injury. He had been here about a week ago for similar symptoms with intermittent bradycardia and renal insufficiency.) Timing - onset: Today Preceding symptoms: No: Headache, Chest pain, Abdominal pain Treatment SENIOR GROUP MANAGER: Other (heart monitor - .EMS reports the patient had a heart rate in the 30s on their arrival and it self improved to the 60s) Recently seen: Emergency Dept, Admitted (Patient was hospitalized for intermittent bradycardia down to 30 with some element of lightheadedness. Also some acute on chronic renal failure. He was here for a few days and improved. He had a decrease of his diltiazem but an increase in his metoprolol dose at discharge. discharged 3 days ago.) Review of Systems Constitutional: denies: Fever, Chills Nose: denies: Rhinorrhea / runny nose, Congestion Throat: denies: Sore throat Cardiac: denies: Chest pain / pressure Respiratory: denies: Cough GI: denies: Abdominal Pain, Vomiting, Diarrhea, Bloody / black stool Neurologic: reports: Generalized weakness, Near syncope. denies: Syncope, Altered mental status, Headache PD PAST MEDICAL HISTORY - Past Medical History Cardiovascular: Hypertension, Atrial fibrillation Respiratory: Sleep apnea Neuro: Parkinson's Endocrine/Autoimmune: Type 2 diabetes GI: GERD : None HEENT: None Psych: None Musculoskeletal: Osteoarthritis, Gout Derm: None - Past Surgical History Past Surgical History: Yes General: Cholecystectomy Ortho: Spine surgery HEENT: Other - Present Medications Home Medications: Ambulatory Orders Medication Instructions Recorded Confirmed Omeprazole 20 mg PO BID 10/02/13 10/03/20 Cholecalciferol (Vitamin D3) 1,000 unit PO BID 10/05/13 09/25/20 [Vitamin D3] Triamcinolone 0.1% Oint [Kenalog 1 applic TD BID 12/03/15 09/25/20 0.1% Oint] Atorvastatin Calcium 40 mg PO DAILY 01/24/16 09/25/20 Meclizine [Antivert] 12.5 mg PO Q6H PRN #10 tablet 10/22/16 09/25/20 Senna [Senokot] 2 tab PO DAILY 03/09/17 09/25/20 Carbidopa/Levodopa 1 each PO QID 01/05/20 10/03/20 [Carbidopa-Levodopa 25-250 Tab] Docusate Sodium [Dss] 250 mg PO DAILY PRN 01/05/20 09/25/20 Ergocalciferol (Vitamin D2) 1,250 mcg PO ONCE 01/05/20 09/25/20 [Drisdol] Neomycin/Polymyx/Hc Otic Drops 4 drops OT TID 10 Days #1 bottle 01/05/20 09/25/20 [Cortisporin Ear Susp] methocarbamoL [Methocarbamol] 1,000 mg PO BID 01/05/20 09/27/20 Rivaroxaban [Xarelto] 20 mg PO QPM 07/23/20 10/03/20 Entacapone [Comtan] 1 tab PO DAILY 09/25/20 10/03/20 Amlodipine Besylate [Norvasc] 2.5 mg PO DAILY 09/26/20 10/03/20 Metoprolol Tartrate [Lopressor] 25 mg PO BID #60 tablet 09/30/20 10/03/20 Tamsulosin [Flomax] 0.4 mg PO DAILY #30 cap 09/30/20 10/03/20 diltiaZEM CD [Cardizem Cd] 120 mg PO DAILY #30 cap 09/30/20 10/03/20 metFORMIN [Glucophage] 500 mg PO BIDWM #60 tablet 10/01/20 10/03/20 - Allergies Allergies/Adverse Reactions: Allergies Allergy/AdvReac Type Severity Reaction Status Date / Time No Known Drug Allergies Allergy Verified 09/25/20 14:51 - Social History Does the pt smoke?: No Smoking Status: Never smoker Does the pt drink ETOH?: No Does the pt have substance abuse?: No - Immunizations Immunizations are current?: Yes - POLST Patient has POLST: No POLST Status: Full Code PD ED PE NORMAL - Vitals Vital signs reviewed: Yes - General General: Alert and oriented X 3, No acute distress, Well developed/nourished - HEENT HEENT: Moist mucous membranes, Pharynx benign - Neck Neck: Supple, no meningeal sign, No adenopathy, No JVD - Cardiac Cardiac: No murmur. No: RRR (irregular but normal rate here. Monitor showing normal rate. ) - Respiratory Respiratory: Clear bilaterally - Abdomen Abdomen: Soft, Non tender - Derm Derm: Normal color, Warm and dry - Extremities Extremities: Normal ROM s pain, No calf tenderness / cord, Other (1+ edema in both lower legs and ankles. ) - Neuro Neuro: Alert and oriented X 3, No motor deficit, Normal speech Eye Opening: Spontaneous Motor: Obeys Commands Verbal: Oriented GCS Score: 15 Results - Vitals Vitals: Vital Signs - 24 hr 10/03/20 10/03/20 13:10 15:22 Temperature 36.4 C L 36.4 C L Heart Rate 70 68 Respiratory 14 20 Rate Blood Pressure 146/106 H 159/106 H O2 Saturation 100 100 Oxygen O2 Source Room air - EKG (time done) 13:33 Rate: Rate (enter#) (78) Rhythm: Atrial fibrillation [place]: Normal QRS: Normal Ischemia: Normal ST segments. No: ST elevation c/w ischemia, ST depression - Tele (time rhythm occurred) er stay Telemetry / rhythm strip: Rate (did not have any bradycardic episodes while in the ER. Seems stable. No symptoms here. ), Atrial fibrillation - Labs Labs: Laboratory Tests 10/03/20 10/03/20 10/03/20 13:44 13:44 13:44 WBC 7.0 RBC 3.67 L Hgb 11.6 L Hct 35.3 L MCV 96.2 H MCH 31.6 H MCHC 32.9 RDW 13.0 Plt Count 208 MPV 10.8 Neut # (Auto) 4.9 Lymph # (Auto) 1.2 L [place] # (Auto) 0.7 Eos # (Auto) 0.1 Baso # (Auto) 0.1 Absolute Nucleated RBC 0.00 Nucleated RBC % 0.0 Sodium 137 Potassium 4.5 Chloride 107 Carbon Dioxide 18 L Anion Gap 12.0 BUN 37 H Creatinine 2.3 H Estimated GFR (MDRD) 28 L Glucose 157 H Calcium 8.4 L Magnesium 1.5 L Total Bilirubin 0.8 AST 14 ALT < 10 L Alkaline Phosphatase 47 Troponin I High Sens 9.6 B-Natriuretic Peptide Total Protein 5.8 L Albumin 3.1 L Globulin 2.7 Albumin/Globulin Ratio 1.1 Lipase 49 10/03/20 13:44 WBC RBC Hgb Hct MCV MCH MCHC RDW Plt Count MPV Neut # (Auto) Lymph # (Auto) [place] # (Auto) Eos # (Auto) Baso # (Auto) Absolute Nucleated RBC Nucleated RBC % Sodium Potassium Chloride Carbon Dioxide Anion Gap BUN Creatinine Estimated GFR (MDRD) Glucose Calcium Magnesium Total Bilirubin AST ALT Alkaline Phosphatase Troponin I High Sens B-Natriuretic Peptide 339 H Total Protein Albumin Globulin Albumin/Globulin Ratio Lipase - Rads (name of study) chest xray Radiology: Prelim report reviewed (no cardiopulmonary acute process), See rad report PD MEDICAL DECISION MAKING - ED course Complexity details: considered differential, d/w patient Departure - Departure Disposition: 01 Home, Self Care Clinical Impression: Light-headed feeling, Generalized weakness, Renal insufficiency Condition: Stable Record reviewed to determine appropriate education?: Yes Instructions: ED Fall Dizziness Weakn Balance Comments: Stay well-hydrated. Continue at the current lower dose of diltiazem 120 mg daily. Resume the prior lower dose of metoprolol 12.5 mg twice daily. Contact your primary care office tomorrow to update them on the recommendations. Recheck if not improved well over the next couple of days and return if worsening. Discharge Date/Time: 10/03/20 15:55
[2020-10-03 15:22] VITALS: BP 159/106
== END 2020-10-03 15:55 | disposition home or self-care (01) ==
LOC: EDUNIT# → ED 13:06
DX: R42 Dizziness and giddiness (principal); R53.1 Weakness; N28.9 Disorder of kidney and ureter, unspecified; E11.9 Type 2 diabetes mellitus without complications; Z79.84 Long term (current) use of oral hypoglycemic drugs
CPT/HCPCS: 36415; 80053; 83690; 83735; 83880; 84484; 85025; 93005; 99283; 99284

== ENCOUNTER 2020-10-26 15:13 | Outpatient (CLI) | payer OTHER ==
--- NOTE | 2020-10-26 17:29 | Ultrasound Report ---
PROCEDURE: Retroperitoneal INDICATIONS: ACUTE KIDNEY FAILURE TECHNIQUE: Real-time scanning was performed of the retroperitoneal organs, with image documentation. COMPARISON: CT chest dated 07/23/2020 and 03/09/2017. FINDINGS: Kidneys: Kidneys are normal in size. Right kidney measures 11.4 cm long; left kidney measures 12.7 cm long. Right renal cortical thickness is 0.9 cm; left renal cortical thickness is 1.2 cm. No fito d masses, hydronephrosis, or nephrolithiasis. Redemonstration of bilateral renal cysts. Right renal cyst measures 2.2 x 2.1 x 2.1 cm. Left renal cyst measures 1.6 x 1.2 x 1.6 cm. Previously seen exophy tic left renal cyst is not seen on today's evaluation. There is mild right renal cortical thinning. R enal parenchymal echotexture appears unremarkable although overall imaging limited by patient scannin g characteristics. Urinary bladder: Prevoid volume measures 79 mL. Post for residual measured 13.3 mL. Prostate is promi nent in size measuring 6.7 x 4.2 x 5.2 cm. Bilateral ureteral jets were visualized. IMPRESSION: 1. Mild right renal cortical thinning, otherwise unremarkable sonographic evaluation of the bilateral kidneys without evidence for obstructive uropathy or other acute sonographic findings. 2. Bilateral renal cysts redemonstrated. 3. Prostatomegaly Reviewed by: Eldon Munguia MD on 10/26/2020 5:27 PM PDT Approved by: Eldon Munguia MD on 10/26/2020 5:27 PM PDT Station ID: [id number]
== END 2020-10-26 15:14 | disposition home or self-care (01) ==
LOC: DI 15:13
PROVIDERS: ATTEND Student in an Organized Health Care Education/Training Program
DX: N28.89 Other specified disorders of kidney and ureter (principal); N28.1 Cyst of kidney, acquired; N40.0 Benign prostatic hyperplasia without lower urinary tract symptoms

== ENCOUNTER 2020-12-08 08:00 | Outpatient (CLI) | payer OTHER ==
[2020-12-09 17:52] LABS: BILIRUBIN,URINE NEGATIVE (NEGATIVE); GLUCOSE, URINE (UA) NEGATIVE (NEGATIVE); KETONES,URINE (UA) NEGATIVE (NEGATIVE); LEUKOCYTE ESTERASE, URINE NEGATIVE (NEGATIVE); NITRITE,URINE NEGATIVE (NEGATIVE); OCCULT BLOOD,URINE NEGATIVE (NEGATIVE); PROTEIN,URINE >=300 mg/dL (NEGATIVE); UROBILINOGEN,URINE 0.2 (NORMAL) E.U./dL (NORMAL)
[2020-12-09 17:54] LABS: CLARITY,URINE CLEAR (CLEAR)
[2020-12-09 18:16] LABS: BACTERIA,URINE Rare /HPF (None Seen); RBC,URINE 0-5 /HPF (0-5); SQUAMOUS EPITHELIAL CELL,UR RARE Squamous (<= Few); WBC,URINE 0-3 /HPF (0-3)
[2020-12-09 18:43] LABS: CREATININE,URINE 150.2 mg/dL; PROTEIN/CREATININE RATIO,URINE 9.4 (<=0.2)
== END 2020-12-08 23:59 ==
LOC: LAB.N 08:00
PROVIDERS: ATTEND Student in an Organized Health Care Education/Training Program
DX: N30.00 Acute cystitis without hematuria (principal); R80.9 Proteinuria, unspecified
CPT/HCPCS: 81001; 82570; 84156; 87086

== ENCOUNTER 2020-12-08 14:39 | Outpatient (CLI) | payer OTHER ==
[2020-12-08 17:54] LABS: HCT - HEMATOCRIT 41.3 % (42.0-52.0); HGB - HEMOGLOBIN 13.3 g/dL (14.0-18.0)
[2020-12-08 18:03] LABS: CALCIUM 8.4 mg/dL (8.5-10.3); CREATININE 2.6 mg/dL (0.6-1.2); POTASSIUM 4.3 mmol/L (3.5-5.0)
== END 2020-12-08 14:40 | disposition home or self-care (01) ==
LOC: LAB.N 14:39
PROVIDERS: ATTEND Student in an Organized Health Care Education/Training Program
DX: N05.9 Unspecified nephritic syndrome with unspecified morphologic changes (principal); D64.9 Anemia, unspecified; N25.81 Secondary hyperparathyroidism of renal origin; N30.00 Acute cystitis without hematuria; R80.9 Proteinuria, unspecified
CPT/HCPCS: 36415; 80048; 81001; 82570; 83970; 84156; 85014; 85018; 87086

== ENCOUNTER 2021-01-09 01:03 | Outpatient (CLI) | payer OTHER | END 2021-01-09 01:04 | disposition critical access hospital (66) | LOC: EMS 01:03 | DX: R60.0 Localized edema (principal); R53.1 Weakness | CPT/HCPCS: A0425; A0429 ==

== ENCOUNTER 2021-01-09 01:20 | Emergency (ER) | payer OTHER ==
--- NOTE | 2021-01-09 01:20 | ED Physician Documentation ---
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 He c/o generalized weakness that has been present "for months" (per patient) but worse tonight. He lives alone. c/o bilateral ankle swelling. Review of Systems Constitutional: denies: Fever, Chills, Sweats Cardiac: reports: Reviewed and negative Respiratory: reports: Reviewed and negative GI: reports: Reviewed and negative : denies: Dysuria, Frequency Skin: reports: Reviewed and negative Musculoskeletal: reports: Extremity swelling Neurologic: reports: Generalized weakness. denies: Focal weakness, Numbness, Confused, Altered mental status, Headache PD PAST MEDICAL HISTORY - Past Medical History Past Medical History: Yes Cardiovascular: Hypertension Neuro: Parkinson's Endocrine/Autoimmune: Type 1 diabetes : Renal insuffiency - Present Medications Home Medications: Ambulatory Orders Medication Instructions Recorded Confirmed Omeprazole 20 mg PO BID 10/02/13 10/03/20 Atorvastatin Calcium 40 mg PO QPM 01/24/16 09/25/20 Meclizine [Antivert] 12.5 mg PO Q6H PRN #10 tablet 10/22/16 09/25/20 Senna [Senokot] 2 tab PO DAILY 03/09/17 09/25/20 Carbidopa/Levodopa 2 each PO QID 01/05/20 10/03/20 [Carbidopa-Levodopa 25-250 Tab] Docusate Sodium [Dss] 250 mg PO DAILY PRN 01/05/20 09/25/20 Ergocalciferol (Vitamin D2) 50,000 units PO 01/05/20 09/25/20 [Drisdol] Rivaroxaban [Xarelto] 0.75 tab PO QDDINNER 07/23/20 10/03/20 Amlodipine Besylate [Norvasc] 2.5 mg PO DAILY 09/26/20 10/03/20 Tamsulosin [Flomax] 0.4 mg PO DAILY #30 cap 09/30/20 10/03/20 diltiaZEM CD [Cardizem Cd] 120 mg PO DAILY #30 cap 09/30/20 10/03/20 Diclofenac Sodium [Voltaren 2 gm TP DAILY 01/09/21 01/09/21 Arthritis Pain] Fluticasone [Flonase] 2 sprays TAWANDA DAILY 01/09/21 01/09/21 Insulin Glargine [Lantus Solostar] 8 unit SQ HS 01/09/21 01/09/21 Loratadine [Claritin] 10 mg PO DAILY 01/09/21 01/09/21 Metoprolol Tartrate [Lopressor] 12.5 mg PO DAILY 01/09/21 Sodium Bicarbonate 325 mg PO PRN PRN 01/09/21 01/09/21 - Allergies Allergies/Adverse Reactions: Allergies Allergy/AdvReac Type Severity Reaction Status Date / Time No Known Drug Allergies Allergy Verified 09/25/20 14:51 PD ED PE NORMAL - Vitals Vital signs reviewed: Yes - General General: Alert and oriented X 3, No acute distress, Other (overweight male lying on stretcher in NAD; very RAMPART. 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, No motor deficit (no focal motor deficit), No sensory deficit PD ED PE EXPANDED - Cardiac Cardiac: Irregularly irregular - Extremities Extremities: Pedal edema bilateral (minimal) Results - Vitals Vitals: Oxygen O2 Source Room air - EKG (time done) No standard instances Rate: Rate (enter#) (87) Rhythm: NSR [place]: Normal Intervals: Normal [place] QRS: Normal Ischemia: Normal ST segments, Q waves (V1, V2) Compare to prior EKG: Unchanged from prior EKG - Labs Labs: Laboratory Tests 01/09/21 01/09/21 01/09/21 01:42 01:42 01:42 WBC 8.7 RBC 4.02 L Hgb 12.6 L Hct 37.9 L MCV 94.3 H MCH 31.3 H MCHC 33.2 RDW 12.4 Plt Count 203 MPV 11.4 Neut # (Auto) 7.0 H Lymph # (Auto) 0.9 L [place] # (Auto) 0.7 Eos # (Auto) 0.1 Baso # (Auto) 0.1 Absolute Nucleated RBC 0.00 Nucleated RBC % 0.0 Sodium 137 Potassium 4.6 Chloride 107 Carbon Dioxide 18 L Anion Gap 12.0 BUN 42 H Creatinine 3.1 H Estimated GFR (MDRD) 20 L Glucose 167 H Lactic Acid Calcium 8.5 Total Bilirubin 0.9 AST < 10 L ALT < 10 L Alkaline Phosphatase 64 Troponin I High Sens B-Natriuretic Peptide 123 H Total Protein 6.6 L Albumin 3.4 Globulin 3.2 Albumin/Globulin Ratio 1.1 Lipase 29 TSH Urine Color Urine Clarity Urine pH Ur Specific [place] Urine Protein Urine Glucose (UA) Urine Ketones Urine Occult Blood Urine Nitrite Urine Bilirubin Urine Urobilinogen Ur Leukocyte Esterase Urine RBC Urine WBC Ur Squamous Epith Cells Urine Bacteria Urine Mucus Ur Microscopic Review Urine Culture Comments 01/09/21 01/09/21 01/09/21 01:42 01:42 03:35 WBC RBC Hgb Hct MCV MCH MCHC RDW Plt Count MPV Neut # (Auto) Lymph # (Auto) [place] # (Auto) Eos # (Auto) Baso # (Auto) Absolute Nucleated RBC Nucleated RBC % Sodium Potassium Chloride Carbon Dioxide Anion Gap BUN Creatinine Estimated GFR (MDRD) Glucose Lactic Acid 0.7 Calcium Total Bilirubin AST ALT Alkaline Phosphatase Troponin I High Sens B-Natriuretic Peptide Total Protein Albumin Globulin Albumin/Globulin Ratio Lipase TSH 1.99 Urine Color YELLOW Urine Clarity CLEAR Urine pH 6.0 Ur Specific [place] 1.020 Urine Protein >=300 H Urine Glucose (UA) NEGATIVE Urine Ketones NEGATIVE Urine Occult Blood NEGATIVE Urine Nitrite NEGATIVE Urine Bilirubin NEGATIVE Urine Urobilinogen 0.2 (NORMAL) Ur Leukocyte Esterase NEGATIVE Urine RBC None Seen Urine WBC 0-3 Ur Squamous Epith Cells RARE Squamous Urine Bacteria None Seen Urine Mucus Few Strands Ur Microscopic Review INDICATED Urine Culture Comments NOT INDICATED 01/09/21 06:45 WBC RBC Hgb Hct MCV MCH MCHC RDW Plt Count MPV Neut # (Auto) Lymph # (Auto) [place] # (Auto) Eos # (Auto) Baso # (Auto) Absolute Nucleated RBC Nucleated RBC % Sodium Potassium Chloride Carbon Dioxide Anion Gap BUN Creatinine Estimated GFR (MDRD) Glucose Lactic Acid Calcium Total Bilirubin AST ALT Alkaline Phosphatase Troponin I High Sens 21.8 H* B-Natriuretic Peptide Total Protein Albumin Globulin Albumin/Globulin Ratio Lipase TSH Urine Color Urine Clarity Urine pH Ur Specific [place] Urine Protein Urine Glucose (UA) Urine Ketones Urine Occult Blood Urine Nitrite Urine Bilirubin Urine Urobilinogen Ur Leukocyte Esterase Urine RBC Urine WBC Ur Squamous Epith Cells Urine Bacteria Urine Mucus Ur Microscopic Review Urine Culture Comments - Rads (name of study) cxr Radiology: Prelim report reviewed, See rad report PD MEDICAL DECISION MAKING - ED course Complexity details: reviewed old records, reviewed results, re-evaluated patient, considered differential, d/w patient ED course: care of patient signed out to Dr. Salas pending final disposition. Plan is to have SW discuss options with patient for home health Departure - Departure Disposition: Home, Self Care Clinical Impression: [id number] kidney injury, Dehydration Condition: Good Instructions: ED Dehydration Follow-Up: Santiago Marcum MD [Primary Care Provider] - Within 3 Days Comments: You need to have your creatinine rechecked within 3 to 4 days with your doctor. Make sure you are drinking plenty of water at home. Return if you worsen. [facility] the amount of help you receive at home. Return if you worsen. Discharge Date/Time: 01/09/21 11:02
[2021-01-09 01:52] LABS: BASOPHILS # (AUTO) 0.1 10^3/uL (0.0-0.1); BASOPHILS % (AUTO) 0.6 %; EOSINOPHILS # (AUTO) 0.1 10^3/uL (0.0-0.7); EOSINOPHILS % (AUTO) 0.8 %; HCT - HEMATOCRIT 37.9 % (42.0-52.0); HGB - HEMOGLOBIN 12.6 g/dL (14.0-18.0); LYMPHOCYTES # (AUTO) 0.9 10^3/uL (1.5-3.5); LYMPHOCYTES % (AUTO) 10.1 %; MEAN CORPUSCULAR HEMOGLOBIN 31.3 pg (27.0-31.0); MEAN CORPUSCULAR HGB CONC 33.2 g/dL (32.0-36.0); MEAN CORPUSCULAR VOLUME 94.3 fL (80.0-94.0); MEAN PLATELET VOLUME 11.4 fL (7.4-11.4); MONOCYTES # (AUTO) 0.7 10^3/uL (0.0-1.0); MONOCYTES % (AUTO) 7.7 %; NEUTROPHILS % (AUTO) 80.5 %; PLT - PLATELET COUNT 203 10^3/uL (130-450); RED BLOOD COUNT 4.02 10^6/uL (4.70-6.10); RED CELL DISTRIBUTION WIDTH 12.4 % (12.0-15.0); WHITE BLOOD COUNT 8.7 x10^3/uL (4.8-10.8)
[2021-01-09 02:05] LABS: ALBUMIN 3.4 g/dL (3.2-5.5); ALBUMIN/GLOBULIN RATIO 1.1 (1.0-2.2); ALKALINE PHOSPHATASE 64 IU/L (42-121); ALT ALANINE AMINOTRANSFERASE < 10 IU/L (10-60); AST ASPARTATE AMINOTRANSFERASE < 10 IU/L (10-42); BILIRUBIN,TOTAL 0.9 mg/dL (0.2-1.0); BUN - BLOOD UREA NITROGEN 42 mg/dL (6-20); CALCIUM 8.5 mg/dL (8.5-10.3); CARBON DIOXIDE - CO2 18 mmol/L (21-32); CHLORIDE 107 mmol/L (101-111); CREATININE 3.1 mg/dL (0.6-1.2); GFR - MDRD 20 (>89); GLUCOSE 167 mg/dL (70-100); LIPASE 29 U/L (22-51); POTASSIUM 4.6 mmol/L (3.5-5.0); SODIUM 137 mmol/L (135-145); TOTAL PROTEIN 6.6 g/dL (6.7-8.2)
[2021-01-09] MEDS ORDERED: SODIUM CHLORIDE 0.9% 500 ML IV STA (02:13)
[2021-01-09 03:40] LABS: BILIRUBIN,URINE NEGATIVE (NEGATIVE); GLUCOSE, URINE (UA) NEGATIVE (NEGATIVE); KETONES,URINE (UA) NEGATIVE (NEGATIVE); LEUKOCYTE ESTERASE, URINE NEGATIVE (NEGATIVE); NITRITE,URINE NEGATIVE (NEGATIVE); OCCULT BLOOD,URINE NEGATIVE (NEGATIVE); PROTEIN,URINE >=300 mg/dL (NEGATIVE); UROBILINOGEN,URINE 0.2 (NORMAL) E.U./dL (NORMAL)
[2021-01-09 03:41] LABS: CLARITY,URINE CLEAR (CLEAR)
[2021-01-09 03:48] LABS: RBC,URINE None Seen /HPF (0-5); WBC,URINE 0-3 /HPF (0-3)
[2021-01-09 03:49] LABS: BACTERIA,URINE None Seen /HPF (None Seen); MUCUS,URINE Few Strands; SQUAMOUS EPITHELIAL CELL,UR RARE Squamous (<= Few)
[2021-01-09] MEDS ORDERED: SODIUM CHLORIDE 0.9% 1,000 ML IV STA (06:34)
--- NOTE | 2021-01-09 07:44 | ED Physician Documentation ---
ED Addendum - Addendum Addendum: Patient signed out to me by Dr. Paredes. Patient is signed out awaiting a social work consult. Patient does have acute on chronic kidney injury. Patient adamantly refuses being admitted to the hospital. He states he feels better and wants to go home. He states he can follow-up with his doctor this week to have his creatinine rechecked. He was given IV fluids here. Mild troponin elevation, but no chest pain. Patient does not want a repeat troponin either. Social work did see the patient and the patient [facility] Referrals were [facility] in place to the [facility] to see if they can increase his assistance at home. Patient contacted his caregiver to come and pick him up. Patient currently asymptomatic. Ambulating well in the emergency department with a walker. Patient counseled regarding signs and symptoms for which I believe and urgent re-evaluation would be necessary. Patient with good understanding of and agreement to plan and is comfortable going home at this time This document was made in part using voice recognition software. While efforts are made to proofread this document, sound alike and grammatical errors may occur. Departure - Departure Disposition: 01 Home, Self Care Clinical Impression: Dehydration Bxhbx-ap-iweauie kidney injury Qualifiers: Acute renal failure type: unspecified Chronic kidney disease stage: unspecified stage Qualified Code(s): N17.9 - Acute kidney failure, unspecified; N18.9 - Chronic kidney disease, unspecified Condition: Good Instructions: ED Dehydration Follow-Up: Santiago Marcum MD [Primary Care Provider] - Within 3 Days Comments: You need to have your creatinine rechecked within 3 to 4 days with your doctor. Make sure you are drinking plenty of water at home. Return if you worsen. Social work made a referral to the [facility] for you to increase the amount of help you receive at home. Return if you worsen.
--- NOTE | 2021-01-09 07:50 | XRAY Report ---
PROCEDURE: Chest 1 View X-Ray INDICATIONS: chest pain TECHNIQUE: One view of the chest was acquired. COMPARISON: Prior single view chest 10/03/2020 FINDINGS: Surgical changes and devices: None. Lungs and pleura: No pleural effusions or pneumothorax. Lungs are mildly edematous. Mediastinum: Mediastinal contours appear normal. Heart size is at or just above the upper limits of normal. Bones and chest wall: No suspicious bony lesions. Overlying soft tissues appear unremarkable. IMPRESSION: Mild pulmonary edema pattern, heart size and just above the upper limits of normal. Suspect mild acut e exacerbation of chronic CHF similar to that previously present. Reviewed by: Sander Hernández MD on 01/09/2021 7:49 AM PDT Approved by: Sander Hernández MD on 01/09/2021 7:49 AM PDT Station ID: [id number]
[2021-01-09 11:02] VITALS: BP 158/83
== END 2021-01-09 11:02 | disposition home or self-care (01) ==
LOC: EDUNIT# → ED 01:20
DX: N17.9 Acute kidney failure, unspecified (principal); E86.0 Dehydration; I12.9 Hypertensive chronic kidney disease with stage 1 through stage 4 chronic kidney disease, or unspecified chronic kidney disease; E10.22 Type 1 diabetes mellitus with diabetic chronic kidney disease; N18.9 Chronic kidney disease, unspecified; R79.89 Other specified abnormal findings of blood chemistry; G20 Parkinson's disease; I48.91 Unspecified atrial fibrillation; Z79.01 Long term (current) use of anticoagulants
CPT/HCPCS: 36415; 80053; 81001; 81003; 83605; 83690; 83880; 84443; 84484; 85025; 87086; 93005; 96360; 99283

== ENCOUNTER 2021-02-24 14:44 | Outpatient (CLI) | payer OTHER | END 2021-02-24 14:45 | disposition EMS.NT | LOC: EMS 14:44 | DX: Z03.89 Encounter for observation for other suspected diseases and conditions ruled out (principal) ==

== ENCOUNTER 2021-02-25 09:51 | Outpatient (CLI) | payer OTHER ==
[2021-02-25 12:26] LABS: HCT - HEMATOCRIT 38.5 % (42.0-52.0); HGB - HEMOGLOBIN 12.8 g/dL (14.0-18.0)
[2021-02-25 12:39] LABS: BILIRUBIN,URINE NEGATIVE (NEGATIVE); GLUCOSE, URINE (UA) NEGATIVE (NEGATIVE); KETONES,URINE (UA) NEGATIVE (NEGATIVE); LEUKOCYTE ESTERASE, URINE NEGATIVE (NEGATIVE); NITRITE,URINE NEGATIVE (NEGATIVE); OCCULT BLOOD,URINE NEGATIVE (NEGATIVE); PH,URINE 5.5 PH (5.0-7.5); PROTEIN,URINE >=300 mg/dL (NEGATIVE); UROBILINOGEN,URINE 0.2 (NORMAL) E.U./dL (NORMAL)
[2021-02-25 12:40] LABS: CALCIUM 8.8 mg/dL (8.5-10.3); CREATININE 3.2 mg/dL (0.6-1.2); POTASSIUM 4.8 mmol/L (3.5-5.0)
[2021-02-25 13:03] LABS: BACTERIA,URINE None Seen /HPF (None Seen); CLARITY,URINE CLEAR (CLEAR); RBC,URINE 0-5 /HPF (0-5); SQUAMOUS EPITHELIAL CELL,UR NONE SEEN (<= Few); WBC,URINE 0-3 /HPF (0-3)
[2021-02-25 13:31] LABS: CREATININE,URINE 100.5 mg/dL; PROTEIN/CREATININE RATIO,URINE 6.3 (<=0.2)
== END 2021-02-25 09:52 | disposition home or self-care (01) ==
LOC: LAB.N 09:51
PROVIDERS: ATTEND Student in an Organized Health Care Education/Training Program
DX: N30.00 Acute cystitis without hematuria (principal); D64.9 Anemia, unspecified; N25.81 Secondary hyperparathyroidism of renal origin; N05.9 Unspecified nephritic syndrome with unspecified morphologic changes; R80.9 Proteinuria, unspecified
CPT/HCPCS: 36415; 80048; 81001; 82570; 83970; 84156; 85014; 85018; 85027; 87086

== ENCOUNTER 2021-04-02 11:38 | Outpatient (CLI) | payer OTHER ==
[2021-04-02 16:52] LABS: CREATININE 3.3 mg/dL (0.6-1.2); POTASSIUM 4.9 mmol/L (3.5-5.0)
[2021-04-02 17:17] LABS: CREATININE,URINE 94.5 mg/dL; PROTEIN/CREATININE RATIO,URINE 7.2 (<=0.2)
== END 2021-04-02 11:39 | disposition home or self-care (01) ==
LOC: LAB.N 11:38
PROVIDERS: ATTEND Student in an Organized Health Care Education/Training Program
DX: N05.9 Unspecified nephritic syndrome with unspecified morphologic changes (principal); N25.81 Secondary hyperparathyroidism of renal origin; R80.9 Proteinuria, unspecified
CPT/HCPCS: 36415; 80048; 82570; 83970; 84156

== ENCOUNTER 2021-04-02 17:12 | Outpatient (CLI) | payer OTHER | END 2021-04-02 17:13 | disposition critical access hospital (66) | LOC: EMS 17:12 | DX: Z04.3 Encounter for examination and observation following other accident (principal); M25.551 Pain in right hip | CPT/HCPCS: A0425; A0429 ==

== ENCOUNTER 2021-04-02 17:33 | Emergency (ER) | payer OTHER ==
--- NOTE | 2021-04-02 17:42 | ED Physician Documentation ---
History of Present Illness - Stated complaint Stated Complaint: GLF/R HIP PX - History obtained from History obtained from: Patient, EMS - Additonal information Additional information: 70-year-old gentleman with severe hearing loss, parkinsonism and type 2 diabetes was in his usual state of health, he tried to sit down in his office chair which has casters on it and it rolled out from under him and he landed on his right buttock with an odd feeling there, not necessarily pain. He is worried that he broke his hip. No other injuries. Declines pain medication on initial evaluation. Note made that most communication to the patient is done via writing notes to him as he is so deaf that he cannot hear us even yelling into his hearing aids. He is able to talk normally though. Review of Systems Constitutional: reports: Reviewed and negative Nose: reports: Reviewed and negative Throat: reports: Reviewed and negative Cardiac: reports: Reviewed and negative PD PAST MEDICAL HISTORY - Past Medical History Cardiovascular: Hypertension Respiratory: Sleep apnea Neuro: Parkinson's Endocrine/Autoimmune: Type 1 diabetes GI: GERD : Renal insuffiency HEENT: None Psych: None Musculoskeletal: Osteoarthritis, Gout Derm: None - Past Surgical History Past Surgical History: Yes General: Cholecystectomy Ortho: Spine surgery HEENT: Other - Present Medications Home Medications: Ambulatory Orders Medication Instructions Recorded Confirmed Omeprazole 20 mg PO BID 10/02/13 04/02/21 Atorvastatin Calcium 40 mg PO QPM 01/24/16 04/02/21 Carbidopa/Levodopa 2 each PO QID 01/05/20 04/02/21 [Carbidopa-Levodopa 25-250 Tab] Rivaroxaban [Xarelto] 20 tab PO QDDINNER 07/23/20 04/02/21 Amlodipine Besylate [Norvasc] 2.5 mg PO DAILY 09/26/20 04/02/21 Tamsulosin [Flomax] 0.4 mg PO DAILY #30 cap 09/30/20 04/02/21 diltiaZEM CD [Cardizem Cd] 120 mg PO DAILY #30 cap 09/30/20 04/02/21 Calcium Carbonate/Vitamin D3 1 each PO DAILY 04/02/21 04/02/21 [Caltrate 600 Plus D3 Tablet] Entacapone [Comtan] 200 mg PO BID 04/02/21 04/02/21 HYDROcod/ACETAM 5/325 [[place] 5/325] 1 - 2 tab PO Q6H PRN #15 tablet 04/02/21 Multivit-Min/FA/Lycopen/Lutein 1 each PO DAILY 04/02/21 04/02/21 [Centrum Silver Men Tablet] Multivit-Min/Folic/Vit K/Lycop 1 each PO DAILY 04/02/21 04/02/21 [One Daily Men's 50 Plus D3 Tab] calcitrioL [Rocaltrol] 0.25 mcg PO DAILY 04/02/21 04/02/21 - Allergies Allergies/Adverse Reactions: Allergies Allergy/AdvReac Type Severity Reaction Status Date / Time allopurinol Allergy Unknown Verified 04/02/21 17:48 glipizide Allergy Unknown Verified 04/02/21 17:48 metformin Allergy Unknown Verified 04/02/21 17:48 - Social History Does the pt smoke?: No Smoking Status: Never smoker Does the pt drink ETOH?: No Does the pt have substance abuse?: No - Immunizations Immunizations are current?: Yes - POLST Patient has POLST: No POLST Status: Full Code PD ED PE NORMAL - Vitals Vital signs reviewed: Yes - General General: Alert and oriented X 3, No acute distress - HEENT HEENT: PERRL, EOMI - Extremities Extremities: Other (I am unable to elicit any pain or tenderness about the right hip. Internal and external rotation is not painful. He does have some tenderness of the lumbar spine but not severe. No pelvic tenderness.) - Neuro Neuro: Alert and oriented X 3, Normal speech - Psych Psych: Normal mood, Normal affect Results - Vitals Vitals: Vital Signs - 24 hr 04/02/21 04/02/21 17:40 19:32 Temperature 37.1 C Heart Rate 99 95 Respiratory 17 18 Rate Blood Pressure 132/99 H 161/100 H O2 Saturation 99 99 Oxygen O2 Source Room air - Rads (name of study) X-rays of the lumbar spine and right hip Radiology: EMP read contemporaneously (NAD) PD MEDICAL DECISION MAKING - ED course ED course: 70-year-old gentleman with fall on the buttocks, clinically without hip fracture based on exam and he did pass a road test here. X-rays negative. Suspect he will develop a significant hematoma in the buttock. Departure - Departure Disposition: 01 Home, Self Care Clinical Impression: Contusion of buttock Qualifiers: Encounter type: initial encounter Qualified Code(s): S30.0XXA - Contusion of lower back and pelvis, initial encounter Condition: Good Record reviewed to determine appropriate education?: Yes Instructions: ED Contusion Soft Tissue Prescriptions: HYDROcod/ACETAM 5/325 [[place] 5/325] 1 - 2 tab PO Q6H PRN #15 tablet PRN Reason: Pain Comments: Tylenol as needed for pain, return for new or worsening symptoms. Follow-up with your doctor in a week if not better. Prescription sent electronically to [facility] in [place]. I am prescribing a short course of narcotic pain medication for you. These are potentially dangerous and addictive medications that should be used carefully. These medications may constipate you. Take an gqba-ubu-heigbyv stool softener (docusate) twice daily with plenty of water while taking these medications. If you go 24 hours without a bowel movement, take owih-aqe-cikyxwj miralax, per package instructions. Do not drink or drive while taking these medications. If you received narcotic or sedating medications while in the emergency department, do not drive for 24 hours. Store this medication in a safe, secure place and out of reach of children. It is a violation of federal law to give or sell this medication to another person or to use in a manner other than prescribed. The ED will not refill narcotic prescriptions, including prescriptions lost or stolen. To dispose of unwanted medications: 1. [facility] at [address] in [place] has a medication drop box. They accept prescription medications (in pill form) Sunday through Sunday 9:00 a.m. to 5:00 p.m. 2. [facility] [employer] [facility] accepts prescription medications (in pill form only) for disposal year round. Call for more information. 3. Contact the [facility] for the next [facility] sponsored prescription drug collection event. , [phone], or [phone]; Note that many narcotic pain relievers also contain Tylenol/acetaminophen. Please ensure that your total dose of acetaminophen from all sources does not exceed 3 g (3000 mg) per day. Discharge Date/Time: 04/02/21 19:50
--- NOTE | 2021-04-02 18:51 | XRAY Report ---
PROCEDURE: Hip w/Pelvis 2-3V RT INDICATIONS: hip inj TECHNIQUE: AP pelvis with lateral view(s) of the right hip(s). COMPARISON: CT abdomen and pelvis dated 07/23/2020. FINDINGS: Bones: No acute fractures or dislocations. Pelvic ring appears intact. No suspicious bony lesions. Moderate bilateral hip degenerative change. Lower lumbar spondylosis. Soft tissues: The visualized bowel gas pattern is normal. No suspicious soft tissue calcifications. IMPRESSION: Right hip without acute fracture or dislocation. Moderate bilateral hip degenerative pearl nge. Reviewed by: Eldon Munguia MD on 04/02/2021 6:50 PM PDT Approved by: Eldon Munguia MD on 04/02/2021 6:50 PM PDT Station ID: [id number]
--- NOTE | 2021-04-02 18:54 | XRAY Report ---
PROCEDURE: Lumbar Spine 2 View INDICATIONS: back inj TECHNIQUE: 2 views of the lumbar spine were acquired. COMPARISON: CT abdomen and pelvis dated 07/23/2020 FINDINGS: Bones: 5 [id number] vertebrae are present. There is straightening of normal lumbar lordosis. No acute vertebral body compression fractures. Moderate multilevel lumbar spondylosis with disc spac e loss, degenerative endplate changes, and facet arthropathy that is most pronounced in the mid and l ower lumbar spine. No suspicious bony lesions. Soft tissues: Overlying bowel gas pattern is normal. No suspicious soft tissue calcifications. IMPRESSION: Lumbar spine without acute radiographic abnormalities. Moderate multilevel lumbar spondy losis most pronounced in the mid and lower lumbar spine. Reviewed by: Eldon Munguia MD on 04/02/2021 6:53 PM PDT Approved by: Eldon Munguia MD on 04/02/2021 6:53 PM PDT Station ID: [id number]
[2021-04-02] MEDS ORDERED: HYDROcod/ACET 5/325 Prepack 4 PO STA (19:13)
[2021-04-02 19:33] VITALS: BP 161/100
== END 2021-04-02 19:50 | disposition home or self-care (01) ==
LOC: EDUNIT# → ED 17:33
DX: S30.0XXA Contusion of lower back and pelvis, initial encounter (principal); W07.XXXA Fall from chair, initial encounter; Y93.89 Activity, other specified; Y92.009 Unspecified place in unspecified non-institutional (private) residence as the place of occurrence of the external cause; N05.9 Unspecified nephritic syndrome with unspecified morphologic changes; N25.81 Secondary hyperparathyroidism of renal origin; R80.9 Proteinuria, unspecified
CPT/HCPCS: 36415; 80048; 82570; 83970; 84156; 99283

== ENCOUNTER 2021-04-23 13:18 | Outpatient (CLI) | payer OTHER | END 2021-04-23 13:19 | disposition critical access hospital (66) | LOC: EMS 13:18 | DX: R31.0 Gross hematuria (principal); R30.0 Dysuria | CPT/HCPCS: A0425; A0429 ==

== ENCOUNTER 2021-04-23 13:41 | Emergency (ER) | payer OTHER ==
--- NOTE | 2021-04-23 14:07 | ED Physician Documentation ---
History of Present Illness - Stated complaint Stated Complaint: HEMATURIA - History obtained from History obtained from: Patient - Additonal information Additional information: 70 yo M presents w/ hematuria. Noted an hour or so ago when he used the toilet. After he urinated he noticed a small string of blood from the penis. It was not painful. He is passing urine w/o difficulty. He has no abd pain, no scrotal or penile pain or swelling, and no dysuria/urg/freq. No fever or chills. He is on xarelto (unclear what for as pt is extremely hard of hearing). Has been on it for about a month but has been on coumadin in the past. Review of Systems Unable to obtain: Other Ten Systems: 10 systems reviewed and negative Constitutional: reports: Reviewed and negative Cardiac: reports: Reviewed and negative GI: reports: Reviewed and negative : reports: Hematuria. denies: Dysuria, Frequency, Hesitancy, Unable to Void, Incontinent, Discharge PD PAST MEDICAL HISTORY - Past Medical History Cardiovascular: Hypertension Respiratory: Sleep apnea Neuro: Parkinson's Endocrine/Autoimmune: Type 1 diabetes GI: GERD : Renal insuffiency HEENT: None Psych: None Musculoskeletal: Osteoarthritis, Gout Derm: None - Past Surgical History Past Surgical History: Yes General: Cholecystectomy Ortho: Spine surgery HEENT: Other - Present Medications Home Medications: Ambulatory Orders Medication Instructions Recorded Confirmed Omeprazole 20 mg PO BID 10/02/13 04/23/21 Atorvastatin Calcium 40 mg PO QPM 01/24/16 04/23/21 Carbidopa/Levodopa 2 each PO QID 01/05/20 04/23/21 [Carbidopa-Levodopa 25-250 Tab] Rivaroxaban [Xarelto] 15 tab PO QDDINNER 07/23/20 04/23/21 Tamsulosin [Flomax] 0.4 mg PO DAILY #30 cap 09/30/20 04/23/21 Calcium Carbonate/Vitamin D3 1 each PO DAILY 04/02/21 04/23/21 [Caltrate 600 Plus D3 Tablet] Entacapone [Comtan] 200 mg PO TID 04/02/21 04/23/21 Multivit-Min/Folic/Vit K/Lycop 1 each PO DAILY 04/02/21 04/23/21 [One Daily Men's 50 Plus D3 Tab] calcitrioL [Rocaltrol] 0.25 mcg PO DAILY 04/02/21 04/23/21 Ascorbic Acid [Vitamin C] 1,000 mg PO DAILY 04/23/21 04/23/21 Insulin Glargine [Lantus Solostar] 8 unit SQ HS 04/23/21 04/23/21 Senna [Senokot] 8.6 mg PO DAILY PRN 04/23/21 04/23/21 diltiaZEM CD [Cardizem Cd] 180 mg PO DAILY 04/23/21 04/23/21 - Allergies Allergies/Adverse Reactions: Allergies Allergy/AdvReac Type Severity Reaction Status Date / Time allopurinol Allergy Unknown Verified 04/23/21 13:49 glipizide Allergy Unknown Verified 04/23/21 13:49 metformin Allergy Unknown Verified 04/23/21 13:49 - Social History Does the pt smoke?: No Smoking Status: Never smoker Does the pt drink ETOH?: No Does the pt have substance abuse?: No - Immunizations Immunizations are current?: Yes - POLST Patient has POLST: No POLST Status: Full Code PD ED PE NORMAL - Vitals Vital signs reviewed: Yes - General General: Alert and oriented X 3, No acute distress, Well developed/nourished - HEENT HEENT: Atraumatic, Moist mucous membranes, Other (extremely hard of hearing) - Cardiac Cardiac: RRR, No murmur, No gallop - Respiratory Respiratory: No respiratory distress, Clear bilaterally - Abdomen Abdomen: Normal bowel sounds, Soft, Non tender, Non distended - Derm Derm: Normal color, Warm and dry, No rash - Neuro Neuro: Alert and oriented X 3 Eye Opening: Spontaneous Motor: Obeys Commands Verbal: Oriented GCS Score: 15 - Psych Psych: Normal mood, Normal affect Results - Vitals Vitals: Vital Signs - 24 hr 04/23/21 04/23/21 13:49 14:09 Temperature 36.9 C Heart Rate 91 88 Respiratory 20 18 Rate Blood Pressure 153/88 H 167/100 H O2 Saturation 97 97 Oxygen O2 Source Room air - Labs Labs: Laboratory Tests 04/23/21 04/23/21 04/23/21 13:59 14:11 14:11 WBC 8.2 RBC 4.12 L Hgb 12.5 L Hct 38.4 L MCV 93.2 MCH 30.3 MCHC 32.6 RDW 13.2 Plt Count 197 MPV 10.5 Neut # (Auto) 6.0 Lymph # (Auto) 1.4 L Thayer # (Auto) 0.7 Eos # (Auto) 0.1 Baso # (Auto) 0.0 Absolute Nucleated RBC 0.00 Nucleated RBC % 0.0 PT 16.5 H INR 1.5 H Sodium Potassium Chloride Carbon Dioxide Anion Gap BUN Creatinine Estimated GFR (MDRD) Glucose Calcium Total Bilirubin AST ALT Alkaline Phosphatase Total Protein Albumin Globulin Albumin/Globulin Ratio Lipase Urine Color YELLOW Urine Clarity HAZY Urine pH 6.0 Ur Specific [place] 1.025 Urine Protein >=300 H Urine Glucose (UA) NEGATIVE Urine Ketones TRACE Urine Occult Blood LARGE H Urine Nitrite NEGATIVE Urine Bilirubin NEGATIVE Urine Urobilinogen 0.2 (NORMAL) Ur Leukocyte Esterase NEGATIVE Urine RBC TNTC H Urine WBC 0-3 Ur Squamous Epith Cells NONE SEEN Urine Bacteria None Seen Ur Microscopic Review INDICATED Urine Culture Comments NOT INDICATED 04/23/21 14:11 WBC RBC Hgb Hct MCV MCH MCHC RDW Plt Count MPV Neut # (Auto) Lymph # (Auto) Thayer # (Auto) Eos # (Auto) Baso # (Auto) Absolute Nucleated RBC Nucleated RBC % PT INR Sodium 139 Potassium 4.4 Chloride 106 Carbon Dioxide 19 L Anion Gap 14.0 H BUN 60 H Creatinine 3.5 H Estimated GFR (MDRD) 17 L Glucose 126 H Calcium 9.1 Total Bilirubin 0.9 AST 16 ALT < 10 L Alkaline Phosphatase 58 Total Protein 6.8 Albumin 3.7 Globulin 3.1 Albumin/Globulin Ratio 1.2 Lipase 44 Urine Color Urine Clarity Urine pH Ur Specific [place] Urine Protein Urine Glucose (UA) Urine Ketones Urine Occult Blood Urine Nitrite Urine Bilirubin Urine Urobilinogen Ur Leukocyte Esterase Urine RBC Urine WBC Ur Squamous Epith Cells Urine Bacteria Ur Microscopic Review Urine Culture Comments PD MEDICAL DECISION MAKING - ED course Complexity details: reviewed old records, considered differential, d/w patient ED course: Pt presented w/ hematuria. He is passing urine w/o difficulty, there are no signs of obstruction, and there are no signs of infection on his exam. His blood count and renal function is per his baseline. He has had similar sx in the past w/ normal workup per pt. I advised him to stay well hydrated and follow up with PCP and urologist next week if symptoms persist. I reviewed return precautions. Departure - Departure Disposition: 01 Home, Self Care Clinical Impression: Hematuria Condition: Good Instructions: Hematuria Poss Causes, ED Hematuria Comments: You have blood in your urine but there are no signs of infection and your blood count is stable. This may be because you are on Xarelto (blood thinner). Right now you are urinating without difficulty so no additional emergent treatment is necessary. Drink plenty of water. If you have pain when you urinate or are unable to pass urine, then return to the ER. Otherwise follow up with your urologist and primary doctor next week if the bleeding continues and they may temporarily take you off xarelto.
[2021-04-23 14:18] LABS: BASOPHILS % (AUTO) 0.5 %; EOSINOPHILS # (AUTO) 0.1 10^3/uL (0.0-0.7); EOSINOPHILS % (AUTO) 0.9 %; HCT - HEMATOCRIT 38.4 % (42.0-52.0); HGB - HEMOGLOBIN 12.5 g/dL (14.0-18.0); LYMPHOCYTES # (AUTO) 1.4 10^3/uL (1.5-3.5); LYMPHOCYTES % (AUTO) 16.6 %; MEAN CORPUSCULAR HEMOGLOBIN 30.3 pg (27.0-31.0); MEAN CORPUSCULAR HGB CONC 32.6 g/dL (32.0-36.0); MEAN CORPUSCULAR VOLUME 93.2 fL (80.0-94.0); MEAN PLATELET VOLUME 10.5 fL (7.4-11.4); MONOCYTES # (AUTO) 0.7 10^3/uL (0.0-1.0); MONOCYTES % (AUTO) 8.4 %; NEUTROPHILS % (AUTO) 73.2 %; PLT - PLATELET COUNT 197 10^3/uL (130-450); RED BLOOD COUNT 4.12 10^6/uL (4.70-6.10); RED CELL DISTRIBUTION WIDTH 13.2 % (12.0-15.0); WHITE BLOOD COUNT 8.2 x10^3/uL (4.8-10.8)
[2021-04-23 14:32] LABS: ALBUMIN 3.7 g/dL (3.2-5.5); ALBUMIN/GLOBULIN RATIO 1.2 (1.0-2.2); ALKALINE PHOSPHATASE 58 IU/L (42-121); ALT ALANINE AMINOTRANSFERASE < 10 IU/L (10-60); AST ASPARTATE AMINOTRANSFERASE 16 IU/L (10-42); BILIRUBIN,TOTAL 0.9 mg/dL (0.2-1.0); BUN - BLOOD UREA NITROGEN 60 mg/dL (6-20); CALCIUM 9.1 mg/dL (8.5-10.3); CARBON DIOXIDE - CO2 19 mmol/L (21-32); CHLORIDE 106 mmol/L (101-111); CREATININE 3.5 mg/dL (0.6-1.2); GFR - MDRD 17 (>89); GLUCOSE 126 mg/dL (70-100); LIPASE 44 U/L (22-51); POTASSIUM 4.4 mmol/L (3.5-5.0); SODIUM 139 mmol/L (135-145); TOTAL PROTEIN 6.8 g/dL (6.7-8.2)
[2021-04-23 14:43] LABS: INR 1.5 (0.8-1.2); PT - PROTHROMBIN TIME 16.5 secs (9.9-12.6)
[2021-04-23 14:44] LABS: BILIRUBIN,URINE NEGATIVE (NEGATIVE); GLUCOSE, URINE (UA) NEGATIVE (NEGATIVE); KETONES,URINE (UA) TRACE mg/dL (NEGATIVE); LEUKOCYTE ESTERASE, URINE NEGATIVE (NEGATIVE); NITRITE,URINE NEGATIVE (NEGATIVE); OCCULT BLOOD,URINE LARGE (NEGATIVE); PROTEIN,URINE >=300 mg/dL (NEGATIVE); UROBILINOGEN,URINE 0.2 (NORMAL) E.U./dL (NORMAL)
[2021-04-23 14:48] LABS: CLARITY,URINE HAZY (CLEAR)
[2021-04-23 14:49] LABS: BACTERIA,URINE None Seen /HPF (None Seen); RBC,URINE TNTC /HPF (0-5); SQUAMOUS EPITHELIAL CELL,UR NONE SEEN (<= Few); WBC,URINE 0-3 /HPF (0-3)
[2021-04-23 15:13] VITALS: BP 164/92
== END 2021-04-23 15:12 | disposition home or self-care (01) ==
LOC: EDUNIT# → ED 13:41
DX: R31.0 Gross hematuria (principal); Z79.01 Long term (current) use of anticoagulants
CPT/HCPCS: 36415; 80053; 81001; 81003; 83690; 85025; 85610; 87086; 99282; 99283

== ENCOUNTER 2021-06-08 14:02 | Outpatient (CLI) | payer OTHER ==
[2021-06-08 17:50] LABS: HCT - HEMATOCRIT 33.6 % (42.0-52.0); HGB - HEMOGLOBIN 10.8 g/dL (14.0-18.0)
[2021-06-08 18:13] LABS: CALCIUM 8.4 mg/dL (8.5-10.3); CREATININE 3.4 mg/dL (0.6-1.2); POTASSIUM 4.6 mmol/L (3.5-5.0); URIC ACID 5.7 mg/dL (2.6-7.2)
[2021-06-08 19:16] LABS: CREATININE,URINE 92.9 mg/dL; PROTEIN/CREATININE RATIO,URINE 5.4 (<=0.2)
== END 2021-06-08 14:03 | disposition home or self-care (01) ==
LOC: LAB.N 14:02
PROVIDERS: ATTEND Internal Medicine Nephrology
DX: N05.9 Unspecified nephritic syndrome with unspecified morphologic changes (principal); D64.9 Anemia, unspecified; N25.81 Secondary hyperparathyroidism of renal origin; R80.9 Proteinuria, unspecified; M10.9 Gout, unspecified
CPT/HCPCS: 36415; 80048; 82570; 83970; 84156; 84550; 85014; 85018

== ENCOUNTER 2021-06-14 12:59 | Outpatient (CLI) | payer OTHER, MEDICARE | END 2021-06-14 13:00 | disposition home or self-care (01) | LOC: LAB.N 12:59 | PROVIDERS: ATTEND Podiatrist Foot & Ankle Surgery | DX: M10.9 Gout, unspecified (principal) | CPT/HCPCS: 36415; 84550 ==

== ENCOUNTER 2021-06-25 12:48 | Outpatient (CLI) | payer MEDICARE, OTHER ==
[2021-06-25 16:40] LABS: CREATININE 3.3 mg/dL (0.6-1.2); POTASSIUM 4.4 mmol/L (3.5-5.0)
[2021-06-25 17:08] LABS: CREATININE,URINE 76.6 mg/dL; PROTEIN/CREATININE RATIO,URINE 4.8 (<=0.2)
== END 2021-06-25 12:49 | disposition home or self-care (01) ==
LOC: LAB.N 12:48
PROVIDERS: ATTEND Student in an Organized Health Care Education/Training Program
DX: N05.9 Unspecified nephritic syndrome with unspecified morphologic changes (principal); R80.9 Proteinuria, unspecified; N25.81 Secondary hyperparathyroidism of renal origin
CPT/HCPCS: 36415; 80048; 82570; 83970; 84156

== ENCOUNTER 2021-08-24 16:35 | Outpatient (CLI) | payer OTHER ==
[2021-08-24 20:52] LABS: HCT - HEMATOCRIT 39.4 % (42.0-52.0); HGB - HEMOGLOBIN 13.1 g/dL (14.0-18.0)
[2021-08-24 20:56] LABS: CALCIUM 8.6 mg/dL (8.5-10.3); CREATININE 3.5 mg/dL (0.6-1.2); POTASSIUM 4.3 mmol/L (3.5-5.0)
== END 2021-08-24 16:36 | disposition home or self-care (01) ==
LOC: LAB.N 16:35
PROVIDERS: ATTEND Student in an Organized Health Care Education/Training Program
DX: N05.9 Unspecified nephritic syndrome with unspecified morphologic changes (principal); D64.9 Anemia, unspecified; N25.81 Secondary hyperparathyroidism of renal origin
CPT/HCPCS: 36415; 80048; 83970; 85014; 85018

== ENCOUNTER 2021-11-17 12:15 | Outpatient (CLI) | payer MEDICARE, OTHER ==
--- NOTE | 2021-11-17 17:51 | CONSULTATION NOTE ---
Palliative Care Consultation - Referral Referring Provider: Dr Vitor Erickson Time of Visit: [id number] Referral setting: Home Referral Reason: CKD IV/Diabetes Type 2/Parkinsons/PTSD - Information Sources Records reviewed: Previous records reviewed History/Review of Systems obtained from: Patient Exam limitations: Clinical condition (patient severly hard of hearing; most of communication had to happen through writing;) - History of Present Illness Brief History of Present Illness: This is a 71-year-old gentleman I am meeting for the first time, it is quite complicated because of his severe hearing loss. He has not confused, though does admit to some short-term memory deficits. Had to provide mostly written questions, with patient able to respond, but difficult for follow-up and clarification. Patient reports has been having declining functional status, this is related to dizziness, reports recent decrease from his diltiazem 180 to 120 mg, is hoping this will continue to improve as he is felt somewhat better over the last few days. He is at high risk for falls, has significant tremors and complicated Parkinson's disease schedule with his carbidopa levodopa. He does have as result of his type 2 diabetes, CKD 4, with multiple conversations regarding pending dialysis. When asked who he is had more intensive conversations with, is mostly been his neighbor, who is encouraging him to go for dialysis. Patient does understand without dialysis his prognosis is limited, the patient's prognosis is limited in the context of also his Parkinson's, weight loss, and declining functional status. Patient does have known history of prostate cancer, small stroke, was a [place] vet has been involved in affairs. Patient lives in a mobile trailer, no family or support, is estranged from his sister and brother. He does have a friend and neighbor who has agreed to be his DPOA and oversight for his estate.His trailer is clean, well organized, patient able to show me his medications and regimen, at this point is contemplating moving forward with dialysis though I suspect has limited information about the impact on his life that is coming. Patient is supported by Meals on Wheels, has a supervisor histology he is not quite happy with but she does clean for him, does not have personal care needs at this point, reports he can bathe independently. He drives short distances only. Medical/Surgical History - Past Medical History Cardiovascular: reports: Hypertension, Atrial fibrillation Respiratory: reports: Shortness of breath, Sleep apnea Neuro: CVA, Parkinson's, Tremors Endocrine/Autoimmune: reports: Type 2 diabetes (insulin dependent), Other (parathyoid) GI: reports: GERD : reports: Renal insuffiency Psych: reports: None Musculoskeletal: reports: Osteoarthritis, Gout Derm: reports: None MRSA Hx?: No - Past Surgical History General: reports: Cholecystectomy Ortho: reports: Spine surgery HEENT: reports: Other Social History - Living Situation Living arrangement: At home Living Situation: Alone Support System: Patient lives alone, reports he is fine with this. He does not feel lonely even in his isolation. He does have a friend and neighbor who checks on him, has Meals on Wheels. Does still drive short distances, but has limited support overall.Patient was is a [place] vet, was very involved in [email or web address]. 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 Family History - Family History Family History: Mother: (81 ; mother estranged/sister/brother estranged not know status), Father: Medications/Allergies - Medications Home Medications: Ambulatory Orders Medication Instructions Recorded Confirmed Omeprazole 20 mg PO BID 10/02/13 11/18/21 Atorvastatin Calcium 40 mg PO QPM 01/24/16 11/18/21 Carbidopa/Levodopa 2 each PO QID 01/05/20 11/18/21 [Carbidopa-Levodopa 25-250 Tab] Rivaroxaban [Xarelto] 15 tab PO QDDINNER 07/23/20 11/18/21 Tamsulosin [Flomax] 0.4 mg PO DAILY #30 cap 09/30/20 11/18/21 Entacapone [Comtan] 200 mg PO BID 04/02/21 11/18/21 Multivit-Min/Folic/Vit K/Lycop 1 each PO DAILY 04/02/21 11/18/21 [One Daily Men's 50 Plus D3 Tab] calcitrioL [Rocaltrol] 0.25 mcg PO DAILY 04/02/21 11/18/21 Insulin Glargine [Lantus Solostar] 8 unit SQ HS 04/23/21 11/18/21 Senna [Senokot] 8.6 mg PO DAILY PRN 04/23/21 11/18/21 diltiaZEM CD [Cardizem Cd] 120 mg PO DAILY 04/23/21 11/18/21 Albuterol Sulfate [Proair Hfa 2 puffs INH Q4HR PRN 11/18/21 11/18/21 Inhaler] Fluticasone [Flonase] 2 spray TAWANDA DAILY 11/18/21 11/18/21 - Allergies Allergies/Adverse Reactions: Allergies Allergy/AdvReac Type Severity Reaction Status Date / Time allopurinol Allergy Unknown Verified 04/23/21 13:49 glipizide Allergy Unknown Verified 04/23/21 13:49 metformin Allergy Unknown Verified 04/23/21 13:49 Review of Systems - Constitutional Constitutional: reports: Fatigue, Weight loss - Eyes Eyes: reports: Vision loss, Corrective lenses - Ears, Nose & Throat Ears, Nose & Throat: reports: Ear pain, Hearing loss, Hearing aids (work poorly), Tinnitus - Cardiovascular Cardiovascular: reports: Irregular heart rate, Lightheadedness, Exertional dyspnea - Respiratory Respiratory: reports: SOB with exertion. denies: Cough, SOB at rest - Gastrointestinal Gastrointestinal: reports: Abdominal pain, Nausea, Vomiting ("regurgitation" diff swallowing), Poor appetite, Early satiety, Other (dependent on MOW). denies: Constipation, Diarrhea - Musculoskeletal Musculoskeletal: reports: Muscle pain, Back pain, Muscle aches, Stiffness, Limited range of motion, Muscle weakness, Gout, Joint pain (bilat knee), Assistive devices (uses walker) - Integumentary Integumentary: reports: Dryness, Other (scarring 14 pieces of shrapnel) - Neurological Neurological: reports: General weakness, Memory problems (mild) - Psychiatric Psychiatric: reports: Depression, Anxiety. denies: Suicidal - Endocrine Endocrine: reports: Diabetes type 2, Intolerance to cold - All Other Systems All Other Systems: reports: Other (difficult with hearing) Physical Exam - Vital Signs Temperature: 96.9 C Pulse Rate: 70 Respiratory Rate: 18 O2 Saturation: 99 Blood Pressure: 124/80 - Physical Exam General Appearance: positive: No acute distress, Alert Eyes Bilateral: positive: Normal inspection ENT: positive: No signs of dehydration Neck: positive: Trachea midline Cardiovascular: positive: Irregular Respiratory: positive: No respiratory distress, Breath sounds nml, Diminished in bases Abdomen: positive: Non-tender, Soft, Nml bowel sounds Skin: positive: Dryness Extremities: positive: No pedal edema, Other (extremeties cool to touch; slow to move gait shuffled) Neurologic/Psychiatric: positive: Oriented x3, Mood/affect nml, Weakness, Flat affect, Other (tremors) Palliative Care - POLST Patient has POLST: Yes POLST Status: DNR, Selective Treatment (completed at visit) Pain: No pain Tiredness/Fatigue: Moderate (4-6) Drowsiness/Sedation: Mild (1-3) Nausea: Mild (1-3) Anorexia: Moderate (4-6), Weight loss Dyspnea: Mild (1-3) Depression: Mild (1-3) Anxiety: Moderate (4-6) Feelings of wellbeing/Perceived Quality of Life: Fair, Acceptable, Worsening Sleep: Sleeps well Constipation: No Performance Status: Observed patient is ambulatory with walker, though slow and measured. Does demonstrate rigidity, forward leaning, and tremors.Patient reports he is independent in his bathing, does have bathroom set up.Patient does depend on Meals on Wheels, reports he is still driving short distances. Unclear if he is shopping or not.Very lengthy visit, will explore further support as needed, does have a supervisor histology, house is neat and clean, and food in kitchen. - Palliative Care Discussion: Patient presented to me a POLST form with full code full treatment. We did discuss through writing questions and exploring quality of life, redoing this.Patient had it tucked away in a file, after much discussion patient does understand would not be good outcomes, and does not want to pursue resuscitation, patient filled out DN AR, patient is still willing to accept treatments to reverse conditions, we selected selective treatments. He does not want to be ventilated, but is willing to go to the ED. Patient is still trying to decide benefits and burdens of dialysis. Patient's understanding is to does have poor prognosis if not dialysis, but then we also discussed that he has Parkinson's as well. Patient's goals are to remain independent, suspect this would be severely impacted given the demands of dialysis. Unclear given patient's communication problems, how much he understands and in the context of informed consent.Reports most of his information and discussion has been with his neighbor. He does have a pending visit next week, for evaluation of placement of fistula. Encouraged to make a list of questions.POLST completed with DN AR/D and I and selective treatments, patient identifies his neighbor as DPOA and real estate lawyer. John Garcia [phone]. There are notes in the chart regarding VA services, did not have time to explore these, will defer this to next visit. Patient is a [place] vet, appears to have had a complicated reentry into current state of being, reports estranged from most family, is an introvert, limited social support, and carries history of PTSD.Patient describes himself as an introvert, and okay with being alone, though does see the complexity of the current situation given his impending decline whether he chooses dialysis or not. Patient reports he is not afraid of dying. Results - Lab Results Lab results reviewed: Yes Lab and Imaging Results: Labs available from July show BUN 51, creatinine 3.5, GFR 17, PTH 115, glucose 212 Impression and Recommendations - Palliative Care Impression: This is a 71-year-old gentleman, who is a [place] vet, who presents with moderate to severe Parkinson's, and CKD stage IV pending dialysis.Patient has little to none social support system, communication is significantly complicated by patient's hearing deficits.Patient has had ongoing decline with weight loss, functional decline, increasing symptom burden, and worsening fatigue.Patient is at high risk for sequela of a fall, complications in the context of pending initiation of dialysis, with multiple comorbidities.Palliative care initiating care, challenged with slow communication, establishing rapport, addressed advance care planning today with completion of POLST. Recommendations/Counseling Done: 1. Parkinson's. On clear length of history, but does report more resistance to carbidopa levodopa, with increased tremors and stiffness, shuffling gait. Patient attributes dizziness to deal Tylenol time, but also could be related to autonomic dysfunction. Patient is starting to have increased trouble with swallowing, has had some weight loss, attributes this to regurgitation at times when eating, and worsening fatigue.Patient is to follow-up with neurology in next couple weeks, is looking at further adjustments though is already on fairly high doses of carbidopa levodopa. Unable to discern patient's understanding of disease and progression, discussed when talking about dialysis as they had told him if he went on dialysis he had 10 to 20 years, we also discussed patient has limited prognosis because of Parkinson's as well and particularly in the context of function. 2. CKD stage IV. Patient is being off her dialysis, did not have any more recent numbers, but his understanding if no dialysis prognosis is 6 months to a year. Patient is ambivalent about proceeding, has canceled 2 appointments previously. Unclear patient's understanding of the complexity in the context of medications, diet, transportation, and impact on function. Patient encouraged to make list of questions, and continue to weigh benefits and burdens related to his situation. 3. Medication adherence. Patient has a clear list, has medications organized. Did not have time to review adherence. Patient seemed knowledgeable about medications. Will defer to next visit 4. Weight loss. Suspect this is multifactorial, patient describes anorexia, low-grade nausea, intermittent vomiting. Patient uses Meals on Wheels, unclear other nutritional support available. Will defer to next visit. 5. Advanced care planning. This was the focus of our visit, in the context of patient's current goals. Patient would like to focus on quality of life, and remaining independent as long as possible. After much discussion and clarification, patient is a DN AR/DNI and selective treatments. Patient does have an identified DPOA, will include him in future conversations regarding advanced care planning. Patient ambivalent about dialysis, discussed with him limitations of my understanding, but patient has multiple comorbidities, putting him at high risk for increasing functional decline, loss of independence which is his primary goal, but no matter which direction, does not have social situation that most likely is going to support this long-term.We will consider enlisting help of medical palliative care social media content manager if available, limited resource currently.POLST completed, will get copy to primary care provider and healthcare system. Patient instructed to post for paramedics in case patient has to someone 911. 90 minutes given the complexity of communication, able to only explore limited amount of topics. Focus was on advanced care planning, POLST, and patient's exploration of dialysis given his ambivalence. Palliative care setting rapport, will continue to see patient every 3 to 4 weeks for ongoing support.
== END 2021-11-17 12:16 | disposition home or self-care (01) ==
LOC: PC 12:15
PROVIDERS: ATTEND Nurse Practitioner Adult Health
DX: Z51.5 Encounter for palliative care (principal); G20 Parkinson's disease; E11.22 Type 2 diabetes mellitus with diabetic chronic kidney disease; N18.4 Chronic kidney disease, stage 4 (severe); F43.10 Post-traumatic stress disorder, unspecified; H91.93 Unspecified hearing loss, bilateral; R63.4 Abnormal weight loss; R42 Dizziness and giddiness; R63.0 Anorexia; R11.0 Nausea; Z79.899 Other long term (current) drug therapy; Z79.4 Long term (current) use of insulin; Z63.8 Other specified problems related to primary support group; Z60.2 Problems related to living alone; Z66 Do not resuscitate
CPT/HCPCS: 99344

== ENCOUNTER 2021-11-26 14:42 | Outpatient (CLI) | payer MEDICARE | END 2021-11-26 14:43 | disposition short-term general hospital (02) | LOC: EMS 14:42 | DX: R06.02 Shortness of breath (principal); R42 Dizziness and giddiness | CPT/HCPCS: A0425; A0429 ==

== ENCOUNTER 2021-12-07 19:59 | Outpatient (CLI) | payer OTHER | END 2021-12-07 20:00 | disposition critical access hospital (66) | LOC: EMS 19:59 | DX: S09.90XA Unspecified injury of head, initial encounter (principal); R53.1 Weakness; R51.9 Headache, unspecified; H53.8 Other visual disturbances; W18.39XA Other fall on same level, initial encounter; Y93.01 Activity, walking, marching and hiking; Y92.008 Other place in unspecified non-institutional (private) residence as the place of occurrence of the external cause; Z79.01 Long term (current) use of anticoagulants | CPT/HCPCS: A0425; A0429 ==

== ENCOUNTER 2021-12-07 20:18 | Emergency (ER) | payer OTHER ==
[2021-12-07 20:31] LABS: BASOPHILS % (AUTO) 0.6 %; EOSINOPHILS # (AUTO) 0.1 10^3/uL (0.0-0.7); EOSINOPHILS % (AUTO) 1.3 %; HCT - HEMATOCRIT 30.2 % (42.0-52.0); HGB - HEMOGLOBIN 9.9 g/dL (14.0-18.0); LYMPHOCYTES # (AUTO) 0.7 10^3/uL (1.5-3.5); LYMPHOCYTES % (AUTO) 10.4 %; MEAN CORPUSCULAR HEMOGLOBIN 29.6 pg (27.0-31.0); MEAN CORPUSCULAR HGB CONC 32.8 g/dL (32.0-36.0); MEAN CORPUSCULAR VOLUME 90.4 fL (80.0-94.0); MONOCYTES # (AUTO) 0.5 10^3/uL (0.0-1.0); MONOCYTES % (AUTO) 6.5 %; NEUTROPHILS # (AUTO) 5.8 10^3/uL (1.5-6.6); NEUTROPHILS % (AUTO) 80.8 %; PLT - PLATELET COUNT 212 10^3/uL (130-450); RED BLOOD COUNT 3.34 10^6/uL (4.70-6.10); RED CELL DISTRIBUTION WIDTH 13.2 % (12.0-15.0); WHITE BLOOD COUNT 7.1 x10^3/uL (4.8-10.8)
[2021-12-07 20:58] LABS: ALBUMIN 3.7 g/dL (3.2-5.5); ALBUMIN/GLOBULIN RATIO 1.3 (1.0-2.2); ALKALINE PHOSPHATASE 52 IU/L (42-121); ALT ALANINE AMINOTRANSFERASE < 10 IU/L (10-60); AST ASPARTATE AMINOTRANSFERASE 12 IU/L (10-42); BILIRUBIN,TOTAL 0.9 mg/dL (0.2-1.0); BUN - BLOOD UREA NITROGEN 50 mg/dL (6-20); CALCIUM 8.8 mg/dL (8.5-10.3); CARBON DIOXIDE - CO2 16 mmol/L (21-32); CHLORIDE 99 mmol/L (101-111); CREATININE 4.5 mg/dL (0.6-1.2); GFR - MDRD 13 (>89); GLUCOSE 199 mg/dL (70-100); POTASSIUM 4.4 mmol/L (3.5-5.0); SODIUM 128 mmol/L (135-145); TOTAL PROTEIN 6.5 g/dL (6.7-8.2)
[2021-12-07] MEDS ORDERED: SODIUM CHLORIDE 0.9% 1,000 ML IV STA (21:02)
--- NOTE | 2021-12-07 21:07 | ED Physician Documentation ---
History of Present Illness - Stated complaint Stated Complaint: GLF - Chief complaint Chief Complaint: Neuro - History obtained from History obtained from: Patient - History of Present Illness Timing: Today Pain level max: 0 Pain level now: 0 - Additonal information Additional information: Patient is a 71-year-old male who presents to the emergency department after a ground-level fall today. He slipped fell and landed on the ground striking his head. He is on Xarelto. He does not complain of any significant pain anywhere. He has an AV fistula in the right arm and has not yet started dialysis. No fevers. No chills. No nausea or vomiting. No abdominal pain, back pain, leg pain, arm pain. Patient is extremely hard of hearing. No loss of consciousness. Review of Systems Constitutional: denies: Fever, Chills Respiratory: denies: Cough GI: denies: Nausea, Vomiting, Diarrhea Musculoskeletal: denies: Neck pain, Back pain Neurologic: denies: Focal weakness, Numbness, Confused, Headache PD PAST MEDICAL HISTORY - Past Medical History Past Medical History: Yes Cardiovascular: Hypertension, Atrial fibrillation Respiratory: Shortness of breath, Sleep apnea Neuro: CVA, Parkinson's, Tremors Endocrine/Autoimmune: Type 2 diabetes, Other GI: GERD : Renal insuffiency HEENT: None Psych: None Musculoskeletal: Osteoarthritis, Gout Derm: None - Past Surgical History Past Surgical History: Yes General: Cholecystectomy Ortho: Spine surgery HEENT: Other Other past surgical history: AV fistula - Present Medications Home Medications: Ambulatory Orders Medication Instructions Recorded Confirmed Omeprazole 20 mg PO BID 10/02/13 12/07/21 Atorvastatin Calcium 40 mg PO QPM 01/24/16 12/07/21 Carbidopa/Levodopa 2 each PO QID 01/05/20 12/07/21 [Carbidopa-Levodopa 25-250 Tab] Rivaroxaban [Xarelto] 15 tab PO QDDINNER 07/23/20 12/07/21 Tamsulosin [Flomax] 0.4 mg PO DAILY #30 cap 09/30/20 12/07/21 Entacapone [Comtan] 200 mg PO BID 04/02/21 12/07/21 Multivit-Min/Folic/Vit K/Lycop 1 each PO DAILY 04/02/21 12/07/21 [One Daily Men's 50 Plus D3 Tab] calcitrioL [Rocaltrol] 0.25 mcg PO DAILY 04/02/21 12/07/21 Insulin Glargine [Lantus Solostar] 8 unit SQ HS 04/23/21 12/07/21 Senna [Senokot] 8.6 mg PO DAILY PRN 04/23/21 12/07/21 diltiaZEM CD [Cardizem Cd] 120 mg PO DAILY 04/23/21 12/07/21 Albuterol Sulfate [Proair Hfa 2 puffs INH Q4HR PRN 11/18/21 12/07/21 Inhaler] Fluticasone [Flonase] 2 spray TAWANDA DAILY 11/18/21 12/07/21 - Allergies Allergies/Adverse Reactions: Allergies Allergy/AdvReac Type Severity Reaction Status Date / Time allopurinol Allergy Unknown Verified 12/07/21 20:42 glipizide Allergy Unknown Verified 12/07/21 20:42 metformin Allergy Unknown Verified 12/07/21 20:42 - Social History Does the pt smoke?: No Smoking Status: Never smoker Does the pt drink ETOH?: No Does the pt have substance abuse?: No - Immunizations Immunizations are current?: Yes - POLST Patient has POLST: Yes POLST Status: Full Code PD ED PE NORMAL - Vitals Vital signs reviewed: Yes - General General: Alert and oriented X 3, No acute distress, Well developed/nourished - HEENT HEENT: PERRL, Moist mucous membranes, Pharynx benign, Other (Small bruising to the occiput. No palpable hematomas. No palpable skull fractures) - Neck Neck: Supple, no meningeal sign, No bony TTP - Cardiac Cardiac: RRR, Strong equal pulses - Respiratory Respiratory: No respiratory distress, Clear bilaterally - Abdomen Abdomen: Soft, Non tender, Non distended - Back Back: No spinal TTP - Derm Derm: Warm and dry - Extremities Extremities: No edema, No calf tenderness / cord - Neuro Neuro: Alert and oriented X 3 - Psych Psych: Normal mood, Normal affect Results - Vitals Vitals: Vital Signs - 24 hr 12/07/21 20:24 Temperature 37.1 C Heart Rate 90 Respiratory 18 Rate Blood Pressure 113/66 O2 Saturation 98 Oxygen O2 Source Room air - Labs Labs: Laboratory Tests 12/07/21 12/07/21 20:26 20:26 WBC 7.1 RBC 3.34 L Hgb 9.9 L Hct 30.2 L MCV 90.4 MCH 29.6 MCHC 32.8 RDW 13.2 Plt Count 212 MPV 13.0 H Neut # (Auto) 5.8 Lymph # (Auto) 0.7 L [place] # (Auto) 0.5 Eos # (Auto) 0.1 Baso # (Auto) 0.0 Absolute Nucleated RBC 0.00 Nucleated RBC % 0.0 Sodium 128 L Potassium 4.4 Chloride 99 L Carbon Dioxide 16 L Anion Gap 13.0 BUN 50 H Creatinine 4.5 H Estimated GFR (MDRD) 13 L Glucose 199 H Calcium 8.8 Total Bilirubin 0.9 AST 12 ALT < 10 L Alkaline Phosphatase 52 Total Protein 6.5 L Albumin 3.7 Globulin 2.8 Albumin/Globulin Ratio 1.3 - Rads (name of study) CT head Radiology: Final report received, EMP read contemporaneously, See rad report CT cervical spine Radiology: Final report received, EMP read contemporaneously, See rad report PD MEDICAL DECISION MAKING - ED course Complexity details: reviewed results, re-evaluated patient, considered differential, d/w patient ED course: No acute findings on head CT or cervical spine CT. No acute injuries from the fall. Was mildly hyponatremic and was given IV fluids. Feels better. Ambulating well. Patient will follow up with his doctor for further care. Patient counseled regarding signs and symptoms for which I believe and urgent re-evaluation would be necessary. Patient with good understanding of and agreement to plan and is comfortable going home at this time This document was made in part using voice recognition software. While efforts are made to proofread this document, sound alike and grammatical errors may occur. Departure - Departure Disposition: 01 Home, Self Care Clinical Impression: Hyponatremia Fall Qualifiers: Encounter type: initial encounter Qualified Code(s): W19.XXXA - Unspecified fall, initial encounter Head injury Qualifiers: Encounter type: initial encounter Qualified Code(s): S09.90XA - Unspecified injury of head, initial encounter Chronic renal failure Qualifiers: Chronic kidney disease stage: unspecified stage Qualified Code(s): N18.9 - Chronic kidney disease, unspecified Condition: Good Instructions: ED Head Injury Closed Follow-Up: your,doctor in 1 week [Other] Comments: Your head CT does not show any acute abnormalities today. Please follow-up with your doctor for further care. Return if you worsen. Drink plenty of fluids at home you are mildly dehydrated today. Your sodium levels were also slightly low. You were given IV fluids for this.
--- OUTSIDE RECORDS SUMMARY | 2021-12-07 21:10 | EXTERNAL MEDICAL SUMMARY RPT | Continuity of Care Document ---
:1950 Author Organization [facility] Address [address] [place] [address] Phone Care Team Providers Name Role Phone SARAH, Otf Paniagua Unavailable Unavailable Allergies No information. Encounters No information. Medications No information. Problems date description facility [id number] Hypomagnesemia [facility] [id number] Chronic kidney disease, unspecified [facility] [id number] Acute kidney failure, unspecified [facility] [id number] Pain in limb All 20211112 Pain in left foot All 20211112 Other abnormalities of gait and All mobility 20211112 Antalgic gait All 20211112 Abnormality of gait All Results No information. Vital Signs date measurement value source 20211112 temperature_standard 97.3 F 20211112 temperature_metric 36.28 C 20211112 respiration_rate 16 /min 20211112 height_standard 72 in 20211112 height_metric 182.88 cm [id number] heart_rate 81 /min 20211112 BP_systolic 165 mm[Hg] 20211112 BP_diastolic 106 mm[Hg]
--- NOTE | 2021-12-07 21:40 | CT Report ---
PROCEDURE: HEAD WO INDICATIONS: fall, neck pain TECHNIQUE: Noncontrast 4.5 mm thick angled axial sections acquired from the foramen magnum to the vertex. For r adiation dose reduction, the following was used: automated exposure control, adjustment of mA and/or kV according to patient size. COMPARISON: Head CT 09/25/2020. FINDINGS: Image quality: Excellent. CSF spaces: There is moderate cerebral volume loss with prominence of the ventricles and sulci. Basa l cisterns are patent. No extra-axial fluid collections. Brain: No intracranial hemorrhage, mass, or mass effect. Guillory-white matter interface is preserved. T here are subcortical and periventricular white matter hypodensities consistent with mild chronic smal l vessel ischemic changes. Skull and face: Calvarium and visualized facial bones are intact, without suspicious lesions. Sinuses: Visualized sinuses demonstrate mild pleural thickening in the left maxillary sinus. There i s partial fluid opacification in the left mastoid air cells suggestive of mild mastoiditis. IMPRESSION: 1. No acute intracranial abnormality. 2. Moderate cerebral volume loss and mild chronic white matter small vessel ischemic changes. Reviewed by: Santiago Ricketts MD on 12/07/2021 9:39 PM PDT Approved by: Santiago Ricketts MD on 12/07/2021 9:39 PM PDT Station ID: [id number]
--- NOTE | 2021-12-07 21:43 | CT Report ---
PROCEDURE: CERVICAL SPINE WO INDICATIONS: fall, neck pain TECHNIQUE: Noncontrast 3 mm thick sections acquired from the skull base to the T4 level. Sagittal and coronal r eformats were then constructed. For radiation dose reduction, the following was used: automated exp osure control, adjustment of mA and/or kV according to patient size. COMPARISON: None. FINDINGS: Image quality: Excellent. Bones: No fractures or subluxation. There is mild straightening of the cervical lordosis. Mild retro listhesis demonstrated at C4-C5 and minimal retrolisthesis at C5-C6 and C6-C7. There is multilevel de generative disc disease throughout the cervical spine including severe degeneration at C3-C4. There i s mild multilevel facet arthropathy throughout the cervical spine. Visualized osseous structures appe ar osteopenic.. Visualized superior ribs are intact. Soft tissues: Prevertebral soft tissues are normal in thickness. No paravertebral hematomas. No ap ical pneumothoraces. IMPRESSION: 1. No fracture or subluxation. 2. Multilevel degenerative changes throughout the cervical spine as described. Reviewed by: Santiago Ricketts MD on 12/07/2021 9:41 PM PDT Approved by: Santiago Ricketts MD on 12/07/2021 9:41 PM PDT Station ID: [id number]
[2021-12-07 21:58] VITALS: BP 143/87
== END 2021-12-07 22:22 | disposition home or self-care (01) ==
LOC: EDSEX → EDUNIT# → EDBD → ED 20:18
DX: E87.1 Hypo-osmolality and hyponatremia (principal); S09.90XA Unspecified injury of head, initial encounter; W01.0XXA Fall on same level from slipping, tripping and stumbling without subsequent striking against object, initial encounter; Z79.01 Long term (current) use of anticoagulants; I48.91 Unspecified atrial fibrillation
CPT/HCPCS: 36415; 80053; 85025; 96360; 99282

== ENCOUNTER 2021-12-09 11:30 | Outpatient (CLI) | payer OTHER ==
--- NOTE | 2021-12-09 17:58 | CONSULTATION NOTE ---
Palliative Care Follow Up - Referral Referring Provider: Dr. Vitor Erickson Time of Visit: [id number] Referral setting: Home Referral Reason: ESRD/Parkinsons/Seizures - Information Sources Records reviewed: Previous records reviewed History/Review of Systems obtained from: Patient Exam limitations: Clinical condition (diego MAYO) - History of Present Illness Update Brief HPI Update: This is a 71-year-old gentleman who I met 11/17, with goal to define goals of care, patient with short-term memory deficits, and was pending placement of fistula.Patient in the meantime I did move forward and have his fistula placed, unfortunately within 2 to 3 days he had an exacerbation of CHF, concern for stroke, concern for seizures, and was hospitalized at [facility]. He was sent to [facility], but what I had been told was he left AMA, because the beds were too small and he did not think they would do anything for him. He has called into the office, but difficult to communicate secondary to severity of his hard of hearing. He wanted a home visit from his palliative care "nurse" and arrangements were made to come on Sunday. I showed up at 1130, patient was still in bed, awakened and wanted to get dressed. I was waiting in the other room, when he called out for me, found patient had been sitting on side chair holding onto rail, convulsing from head to toe including head shoulders lower extremities upper extremities, patient did not lose consciousness, tried to reassure patient. Did call 911, timed episodes lasted for about 8 minutes. Patient was quite shaken, again unfortunately his hearing aids were not working. 911 brought the paramedics. Did spend time vital signs were fairly stable, but patient having difficulty with communication. Patient was oriented to person and place, patient by the way had had a fall on 12/07 and ruled out any intracranial bleed because he is on Xarelto. Patient's told me he had taken his meds, though looking at Mediset they were still in his Mediset for and Sunday. Patient reports he went to bed at 9:00, paramedics took blood sugar was 104 at the scene. Patient was asked about hospitalization, he had asked if he did not have to, though again his social situation continues to be unsafe. He has no one to check on him, he was quite weak, and when given a set of water started retching with nausea and vomiting.Patient agreed to go to the hospital, there was some discussion about where to send him secondary to his worsening kidney function from previous labs 2 days ago, of concern has been his precarious home situation. Patient lives in a trailer, does have some housecleaning, is in charge of doing his own meal prep, but is mostly wheelchair-bound, can ambulate a few steps with walker.Unclear what his functional status was on discharge from his last hospitalization, and unclear if he is being compliant with medications given the Mediset still with medications in them. Past Medical History: Pretension, atrial fibs, shortness of breath, sleep apnea, CVA, Parkinson's, tremors, type 2 diabetes insulin-dependent, parathyroidism, GERD, renal insufficiency, osteoarthritis, gout, history of cholecystectomy history of spine surgery. Social History - Living Situation Living arrangement: At home Living Situation: Alone Support System: Patient has no family, he has history of PTSD. He does have a friend and neighbor who checks on him, has Meals on Wheels. He had been previous to last hospitalization driving short distances. Patient is a [place] vet, was very involved in affairs. Patient is quite isolated. Medications/Allergies - Medications Home Medications: Ambulatory Orders Medication Instructions Recorded Confirmed Omeprazole 20 mg PO BID 10/02/13 12/07/21 Atorvastatin Calcium 40 mg PO QPM 01/24/16 12/07/21 Carbidopa/Levodopa 2 each PO QID 01/05/20 12/07/21 [Carbidopa-Levodopa 25-250 Tab] Rivaroxaban [Xarelto] 15 tab PO QDDINNER 07/23/20 12/07/21 Tamsulosin [Flomax] 0.4 mg PO DAILY #30 cap 09/30/20 12/07/21 Entacapone [Comtan] 200 mg PO BID 04/02/21 12/07/21 Multivit-Min/Folic/Vit K/Lycop 1 each PO DAILY 04/02/21 12/07/21 [One Daily Men's 50 Plus D3 Tab] calcitrioL [Rocaltrol] 0.25 mcg PO DAILY 04/02/21 12/07/21 Insulin Glargine [Lantus Solostar] 8 unit SQ HS 04/23/21 12/07/21 Senna [Senokot] 8.6 mg PO DAILY PRN 04/23/21 12/07/21 Albuterol Sulfate [Proair Hfa 2 puffs INH Q4HR PRN 11/18/21 12/07/21 Inhaler] Fluticasone [Flonase] 2 spray TAWANDA DAILY 11/18/21 12/07/21 diltiaZEM CD [Cardizem Cd] 180 mg PO DAILY 12/09/21 - Allergies Allergies/Adverse Reactions: Allergies Allergy/AdvReac Type Severity Reaction Status Date / Time allopurinol Allergy Unknown Verified 12/07/21 20:42 glipizide Allergy Unknown Verified 12/07/21 20:42 metformin Allergy Unknown Verified 12/07/21 20:42 Review of Systems - Constitutional Constitutional: reports: Fatigue, Weight loss - Eyes Eyes: reports: Vision loss, Corrective lenses - Ears, Nose & Throat Ears, Nose & Throat: reports: Ear pain, Hearing loss, Hearing aids (work poorly), Tinnitus - Cardiovascular Cardiovascular: reports: Irregular heart rate, Lightheadedness, Exertional dyspnea - Respiratory Respiratory: reports: SOB with exertion. denies: Cough, SOB at rest - Gastrointestinal Gastrointestinal: reports: Nausea, Vomiting ("regurgitation" diff swallowing), Poor appetite, Early satiety, Other (dependent on MOW). denies: Constipation, Diarrhea - Musculoskeletal Musculoskeletal: reports: Muscle pain, Back pain, Muscle aches, Stiffness, Limited range of motion, Muscle weakness, Gout, Joint pain (bilat knee), Assistive devices (uses walker; looks like has been using w/c since last hospitalization) - Integumentary Integumentary: reports: Dryness, Other (scarring 14 pieces of shrapnel) - Neurological Neurological: reports: General weakness, Memory problems (mild; difficult to discern related to communication difficulties.) - Psychiatric Psychiatric: reports: Depression, Anxiety. denies: Suicidal - Endocrine Endocrine: reports: Diabetes type 2, Intolerance to cold - All Other Systems All Other Systems: reports: Other (recent hospitalization) Physical Exam - Physical Exam General Appearance: positive: Severe distress (with convulsing 8 minutes; pale and shakey after; did not loose consciousness), Anxious Eyes Bilateral: positive: Normal inspection Neck: positive: Trachea midline Cardiovascular: positive: Irregular Respiratory: positive: No respiratory distress Skin: positive: Dryness Extremities: positive: No pedal edema Neurologic/Psychiatric: positive: Oriented x3 (as best can tell;), Mood/affect nml, Weakness, Flat affect, Other (tremors) Palliative Care - POLST Patient has POLST: Yes POLST Status: DNR, Selective Treatment Pain: No pain - Palliative Care Discussion: Patient does have a POLST form DNR/DNI with selective treatments that we had filled out last time. The patient had decided to at least get his fistula placed, we had been discussing benefits and burdens of dialysis in the future. Unfortunately even placing that fistula had triggered a series of unfortunate events for him. He does identify his neighbor as DPOA and executor of his estate John Clay [phone]. Patient is a [place] vet, has a complicated reentry into his current state and is estranged from most family, is an introvert, has limited social support, and carries history of PTSD. Patient reports he is in the past not been afraid of dying. He was not too keen on going to the hospital, but has no other further support at home to monitor, and now has yet another unfortunate event that deems him unsafe to be alone. Unclear if patient has appropriate decision-making capacity, this is impacted by his significant loss of hearing. He does best to be right out the questions, as he can then answer. Impression and Recommendations - Palliative Care Impression: This 71-year-old gentleman who is a [place] vet, who presents with moderate to severe Parkinson's, CKD stage IV pending dialysis with recent fistula placement, and recent hospitalization for similar neurologic findings with seizures, worsening tremors, and vision loss. Patient has little to no support system, and communication is complicated by patient's hearing deficits. Patient does perez ve symptoms of failure to thrive with weight loss, functional decline, increasing symptom burden and worsening fatigue. Patient has multiple comorbidities. Palliative care could make a visit for follow-up after hospitalization and leaving AMA from SNF, finding patient yet and another unfortunate situation with seizure activity. Recommendations/Counseling Done: 1. Seizures. The patient has multiple sequela that could be adding to his risk of seizures, and has history recently of low magnesium, history of parathyroidism, pending worsening CKD, and has been having his Sinemet altered though unclear if patient compliant with his medications since discharge home. Unfortunately given the situation and severity of symptoms, 911 is called and hospital transport has occurred. Given the acute severity of the situation, unable to evaluate patient's current situation. I suspect patient should not be in his current situation, and would warrant a call to APS. Unable to verify this, if patient discharged will follow-up again with home visit.. 45 minutes with greater than 50% of this done in coordination of care with calling 911 and paramedics and sending to ED, follow-up with ED provider. Sent records with paramedics that I had from [facility], unfortunately unable to reference this further from my note. Nor was able to confirm medications in the home and patient's compliance.
== END 2021-12-09 11:31 | disposition home or self-care (01) ==
LOC: PC 11:30
PROVIDERS: ATTEND Nurse Practitioner Adult Health
DX: Z51.5 Encounter for palliative care (principal); R56.9 Unspecified convulsions; E11.22 Type 2 diabetes mellitus with diabetic chronic kidney disease; I12.0 Hypertensive chronic kidney disease with stage 5 chronic kidney disease or end stage renal disease; N18.6 End stage renal disease; G20 Parkinson's disease; R53.1 Weakness; R63.4 Abnormal weight loss; R53.83 Other fatigue; I48.91 Unspecified atrial fibrillation; H91.93 Unspecified hearing loss, bilateral; Z79.4 Long term (current) use of insulin; Z79.01 Long term (current) use of anticoagulants; Z79.899 Other long term (current) drug therapy; Z74.8 Other problems related to care provider dependency; Z60.2 Problems related to living alone; Z91.19 Patient's noncompliance with other medical treatment and regimen
CPT/HCPCS: 99349

== ENCOUNTER 2021-12-09 12:27 | Outpatient (CLI) | payer OTHER | END 2021-12-09 12:28 | disposition critical access hospital (66) | LOC: EMS 12:27 | DX: R56.9 Unspecified convulsions (principal); R11.0 Nausea | CPT/HCPCS: A0425; A0429 ==

== ENCOUNTER 2021-12-09 12:42 | Inpatient (IN) | payer OTHER ==
[2021-12-09] MEDS ORDERED: levETIRAcetam INJ 500 MG in SODIUM CHLORIDE 0.9% 100ML 100 ML IV STA (12:58)
[2021-12-09] MEDS ORDERED: SODIUM CHLORIDE 0.9% 1,000 ML IV STA (13:00)
[2021-12-09] MEDS ORDERED: LORazepam 2 MG/ML VIAL ONE (13:00)
--- NOTE | 2021-12-09 13:05 | ED Physician Documentation ---
History of Present Illness - Stated complaint Stated Complaint: SEIZURE - Additonal information Additional information: 71-year-old male is brought to the emergency department for evaluation of seizure like activity. He was visited this morning by palliative care DRESS DRAPER Lory Zhang. When she arrived at the house he was sleeping and she woke him up. Shortly thereafter she noted that he had an approximately 7-minute convulsion. She called EMS. By the time they arrived he was awake and talking. The patient arrived here to the emergency department with EMS. Initially he was awake and was able to verbalize his name. It should be noted that he is excessively hard of hearing. About 1 minute after arrival to the emergency department he began to have a generalized tonic-clonic seizure with noted rigidity of the right side. He then became apneic. We began bag mask ventil ation at the bedside and assisted his breathing while nursing staff established IV access. It was at this time that we were able to note his POLST form which indicates he is a DNR DNI with limited interventions. After bag mask ventilating him for approximately 2 to 3 minutes while he maintain saturations of 95 to 100% the patient began to breathe more adequately and spontaneously on his own thus it was stopped and he was placed to a nonrebreather mask. Pt did maintain both femoral and radial pulses which were palpable throughout. He appeared in a sinus rythm. In his postictal state he began to slowly arouse. He began to localize with both his left and right arm. I did order a loading dose of Keppra. as well as a stat CT of head Patient was seen in this emergency department on 07 December after ground-level fall. He had unremarkable CT imaging of the head and spine. He is anticoagulated on Xarelto. He is seen by our palliative care team. He does have a history of chronic kidney disease stage IV, type 2 diabetes Parkinson's and PTSD as well as a history of atrial fibrillation and hypertension. Patient recently had an AV fistula placed in the right arm. He has not yet started dialysis. Review of Systems Unable to obtain: AMS, Other (chart, ems) PD PAST MEDICAL HISTORY - Past Medical History Cardiovascular: Hypertension, Atrial fibrillation Respiratory: Shortness of breath, Sleep apnea Neuro: CVA, Parkinson's, Tremors Endocrine/Autoimmune: Type 2 diabetes, Other GI: GERD : Renal insuffiency HEENT: None Psych: None Musculoskeletal: Osteoarthritis, Gout Derm: None - Past Surgical History Past Surgical History: Yes General: Cholecystectomy Ortho: Spine surgery HEENT: Other - Present Medications Home Medications: Ambulatory Orders Medication Instructions Recorded Confirmed Omeprazole 20 mg PO BID 10/02/13 12/07/21 Atorvastatin Calcium 40 mg PO QPM 01/24/16 12/07/21 Carbidopa/Levodopa 2 each PO QID 01/05/20 12/07/21 [Carbidopa-Levodopa 25-250 Tab] Rivaroxaban [Xarelto] 15 tab PO QDDINNER 07/23/20 12/07/21 Tamsulosin [Flomax] 0.4 mg PO DAILY #30 cap 09/30/20 12/07/21 Entacapone [Comtan] 200 mg PO BID 04/02/21 12/07/21 Multivit-Min/Folic/Vit K/Lycop 1 each PO DAILY 04/02/21 12/07/21 [One Daily Men's 50 Plus D3 Tab] calcitrioL [Rocaltrol] 0.25 mcg PO DAILY 04/02/21 12/07/21 Insulin Glargine [Lantus Solostar] 8 unit SQ HS 04/23/21 12/07/21 Senna [Senokot] 8.6 mg PO DAILY PRN 04/23/21 12/07/21 [id number] CD [Cardizem Cd] 120 mg PO DAILY 04/23/21 12/07/21 Albuterol Sulfate [Proair Hfa 2 puffs INH Q4HR PRN 11/18/21 12/07/21 Inhaler] Fluticasone [Flonase] 2 spray TAWANDA DAILY 11/18/21 12/07/21 - Allergies Allergies/Adverse Reactions: Allergies Allergy/AdvReac Type Severity Reaction Status Date / Time allopurinol Allergy Unknown Verified 12/07/21 20:42 glipizide Allergy Unknown Verified 12/07/21 20:42 metformin Allergy Unknown Verified 12/07/21 20:42 - Social History Does the pt smoke?: No Smoking Status: Never smoker Does the pt drink ETOH?: No Does the pt have substance abuse?: No - Immunizations Immunizations are current?: Yes - POLST Patient has POLST: Yes POLST Status: Full Code PD ED PE EXPANDED - General General: Disheveled, poorly kept (Elderly frail appearance appears older than stated age), Lethargic, Unresponsive - Neck Neck: Supple w/out meningeal sx. No: Adenopathy - Cardiac Cardiac: Regular Rate, Murmur Present, Radial strong equal, Pedal strong equal, Cap refill < 2 sec - Respiratory Respiratory: Labored, Rhonchi - Abdomen Abdomen: Normal Bowel sounds. No: Tender to palpation - Back Back: Normal exam - Derm Derm: Normal color - Extremities Extremities: Other (AV fistula right upper arm. Positive bruit and thrill) - GCS Eye Opening: None Motor: Localizes to Pain Verbal: Incomprehensible Total: 8 Results - Vitals Vitals: Vital Signs - 24 hr 12/09/21 12/09/21 12/09/21 12:45 14:05 14:29 Temperature 37.4 C Heart Rate 107 H 93 Respiratory 18 22 Rate Blood Pressure 154/80 H 152/92 H O2 Saturation 84 L 100 100 12/09/21 12/09/21 14:30 15:00 Temperature Heart Rate 91 87 Respiratory 17 20 Rate Blood Pressure 150/83 H 136/76 H O2 Saturation 100 100 Oxygen O2 Source Room air - EKG (time done) 1346 Rate: Rate (enter#) (94) Rhythm: Atrial fibrillation, Other (PVC) Intervals: Prolonged QT QRS: Poor R wave progression Ischemia: Q waves (anterior leads) Compare to prior EKG: Changed from prior EKG Computer interpretation: Agree with computer - Labs Labs: Laboratory Tests 12/09/21 12/09/21 12/09/21 12:56 12:56 12:56 WBC 8.3 RBC 3.83 L Hgb 11.3 L Hct 37.9 L MCV 99.0 H MCH 29.5 MCHC 29.8 L RDW 13.4 Plt Count 257 MPV 12.2 H Neut # (Auto) 6.5 Lymph # (Auto) 1.2 L [place] # (Auto) 0.4 Eos # (Auto) 0.0 Baso # (Auto) 0.0 Absolute Nucleated RBC 0.00 Nucleated RBC % 0.0 Sodium 138 Potassium 4.9 Chloride 102 Carbon Dioxide 14 L Anion Gap 22.0 H BUN 42 H Creatinine 4.6 H Estimated GFR (MDRD) 13 L Glucose 110 H Calcium 9.3 Phosphorus 5.1 H Magnesium 1.6 L Total Bilirubin 1.8 H AST 13 ALT < 10 L Alkaline Phosphatase 60 Total Creatine Kinase 51 Troponin I High Sens 24.8 H* Total Protein 7.4 Albumin 4.1 Globulin 3.3 Albumin/Globulin Ratio 1.2 Lipase 35 Urine Color Urine Clarity Urine pH Ur Specific [place] Urine Protein Urine Glucose (UA) Urine Ketones Urine Occult Blood Urine Nitrite Urine Bilirubin Urine Urobilinogen Ur Leukocyte Esterase Urine RBC Urine WBC Ur Squamous Epith Cells Urine Bacteria Urine Casts Ur Microscopic Review Urine Culture Comments Nasal Adenovirus (PCR) Nasal B. parapertussis DNA (PCR) Nasal Coronavir 229E PCR Nasal Coronavir HKU1 PCR Nasal Coronavir NL63 PCR Nasal Coronavir OC43 PCR Nasal Enterovir/Rhinovir PCR Nasal Influenza B PCR Nasal Influenza A PCR Nasal Parainfluen 1 PCR Nasal Parainfluen 2 PCR Nasal Parainfluen 3 PCR Nasal Parainfluen 4 PCR Nasal RSV (PCR) Nasal B.pertussis DNA PCR Nasal C.pneumoniae (PCR) [place] Human Metapneumo PCR Nasal M.pneumoniae (PCR) Nasal SARS-CoV-2 (PCR) Urine Opiates Screen Ur Oxycodone Screen Urine Methadone Screen Ur Propoxyphene Screen Ur Barbiturates Screen Ur Tricyclics Screen Ur Phencyclidine Scrn Ur Amphetamine Screen U Methamphetamines Scrn U Benzodiazepines Scrn Urine Cocaine Screen U Cannabinoids Screen 12/09/21 12/09/21 13:59 13:59 WBC RBC Hgb Hct MCV MCH MCHC RDW Plt Count MPV Neut # (Auto) Lymph # (Auto) [place] # (Auto) Eos # (Auto) Baso # (Auto) Absolute Nucleated RBC Nucleated RBC % Sodium Potassium Chloride Carbon Dioxide Anion Gap BUN Creatinine Estimated GFR (MDRD) Glucose Calcium Phosphorus Magnesium Total Bilirubin AST ALT Alkaline Phosphatase Total Creatine Kinase Troponin I High Sens Total Protein Albumin Globulin Albumin/Globulin Ratio Lipase Urine Color YELLOW Urine Clarity HAZY Urine pH 5.5 Ur Specific [place] >=1.030 H Urine Protein >=300 H Urine Glucose (UA) NEGATIVE Urine Ketones NEGATIVE Urine Occult Blood MODERATE H Urine Nitrite NEGATIVE Urine Bilirubin NEGATIVE Urine Urobilinogen 0.2 (NORMAL) Ur Leukocyte Esterase NEGATIVE Urine RBC 11-25 H Urine WBC 6-10 H Ur Squamous Epith Cells RARE Squamous Urine Bacteria Moderate H Urine Casts 3-5 Granular Casts Ur Microscopic Review INDICATED Urine Culture Comments NOT INDICATED Nasal Adenovirus (PCR) NOT DETECTED Nasal B. parapertussis DNA (PCR) NOT DETECTED Nasal Coronavir 229E PCR NOT DETECTED Nasal Coronavir HKU1 PCR NOT DETECTED Nasal Coronavir NL63 PCR NOT DETECTED Nasal Coronavir OC43 PCR NOT DETECTED Nasal Enterovir/Rhinovir PCR NOT DETECTED Nasal Influenza B PCR NOT DETECTED Nasal Influenza A PCR NOT DETECTED Nasal Parainfluen 1 PCR NOT DETECTED Nasal Parainfluen 2 PCR NOT DETECTED Nasal Parainfluen 3 PCR NOT DETECTED Nasal Parainfluen 4 PCR NOT DETECTED Nasal RSV (PCR) NOT DETECTED Nasal B.pertussis DNA PCR NOT DETECTED Nasal C.pneumoniae (PCR) NOT DETECTED [place] Human Metapneumo PCR NOT DETECTED Nasal M.pneumoniae (PCR) NOT DETECTED Nasal SARS-CoV-2 (PCR) NOT DETECTED Urine Opiates Screen NEGATIVE Ur Oxycodone Screen NEGATIVE Urine Methadone Screen NEGATIVE Ur Propoxyphene Screen NEGATIVE Ur Barbiturates Screen NEGATIVE Ur Tricyclics Screen NEGATIVE Ur Phencyclidine Scrn NEGATIVE Ur Amphetamine Screen NEGATIVE U Methamphetamines Scrn NEGATIVE U Benzodiazepines Scrn NEGATIVE Urine Cocaine Screen NEGATIVE U Cannabinoids Screen NEGATIVE - Rads (name of study) cxr Radiology: Final report received (No acute cardiopulmonary process) CT head Radiology: Final report received (No acute intracranial process) PD MEDICAL DECISION MAKING - ED course Complexity details: reviewed results, re-evaluated patient, considered differential, d/w patient ED course: This is a 71-year-old male who has a history significant for Parkinson's, atrial fibrillation anticoagulated on Xarelto, PTSD, hypertension as well as stage IV chronic kidney disease. Recently he did have a right upper extremity AV fistula placed. He is a palliative care patient DNR with limited interventions. He was brought to the emergency department this afternoon for evaluation of seizure activity noted by the palliative care nurse who had visited him. Shortly after arrival to the emergency department he again had noted seizure activity monitored by this provider. He did become apneic for a short period of time and did require bag mask ventilation before regaining spontaneous breaths. He maintained his pulse throughout. It was approximately 30 to 45 minutes before he retained a normal mental status and is now a Glascow of 15 though incredibly hard of hearing. This gentleman was seen in the ER 2 days ago after a ground-level fall in which she struck his head. CT at that time was negative. Repeat CT today is negative. However given the new seizure activity he was loaded with 500 mg of Keppra. He is noted to have chronic kidney disease and his baseline labs are essentially unchanged from 48 hours ago. 1350: I did discuss this case briefly with our hospitalist Dr. Lee. He feels that the patient may be appropriate for observation admission here to this hospital if we are able to consult with outside neurology to confirm her on appropriate antiepileptic as well as to determine if this gentleman needs emergent EEG or MRI imaging. If this is true he will require transfer for more definitive care. 1450: I have spoken with Dr. Ba neurologist on-call with [facility] hospitalist. We discussed this patient's presentation and past history that includes chronic kidney disease and Parkinson's as well is stated goals of care that include limited interventions/palliative care. At this time he feels that Keppra is an appropriate antiepileptic that should be renally dosed. He did not feel the patient would benefit from an EEG at this time. Given that the patient is a limited interventions palliative care patient he also did not feel that the patient would benefit from an MRI given the goals of care. He does feel that the patient is appropriate for observation. However should the patient have another breakthrough seizure then we would at that point need to consider further evaluation and/or transfer. I again discussed this case with Dr. Headley who graciously agrees to admit the patient to observation status. - Critical Care Time(min): 15 Time Includes: Direct patient care, Review records, Reassess patient, Document care, Coordinate care, Medical consult, See progress note Data interpretation: Labs Procedures included in critical care time: See progress note Departure - Departure Disposition: ED Place in Observation Clinical Impression: Seizure, CKD (chronic kidney disease) stage 4, GFR 15-29 ml/min, Parkinsons disease, Anticoagulated Atrial fibrillation Qualifiers: Atrial fibrillation type: longstanding persistent Qualified Code(s): I48.11 - Longstanding persistent atrial fibrillation
[2021-12-09] MEDS ORDERED: ETOMIDATE 40 MG/20 ML VIAL IVP ONE (13:07)
[2021-12-09] MEDS ORDERED: MIDAZOLAM 2 MG/2 ML VIAL ONE (13:07)
[2021-12-09] MEDS ORDERED: PROPOFOL 1000 MG/100 ML 0 MG/0 ML BOTTLE IV ONE (13:07)
[2021-12-09] MEDS ORDERED: KETAMINE 500 MG/10 ML VIAL ONE (13:07)
[2021-12-09] MEDS ORDERED: SUCCINYLCHOLINE 200 MG/10 ML VIAL ONE (13:08)
[2021-12-09] MEDS ORDERED: ROCURONIUM 50 MG/5 ML VIAL ONE (13:08)
[2021-12-09] MEDS ORDERED: PROPOFOL 200 MG/20 ML VIAL IVP ONE (13:08)
[2021-12-09 13:09] LABS: BASOPHILS % (AUTO) 0.4 %; EOSINOPHILS % (AUTO) 0.4 %; HCT - HEMATOCRIT 37.9 % (42.0-52.0); HGB - HEMOGLOBIN 11.3 g/dL (14.0-18.0); LYMPHOCYTES # (AUTO) 1.2 10^3/uL (1.5-3.5); LYMPHOCYTES % (AUTO) 14.9 %; MEAN CORPUSCULAR HEMOGLOBIN 29.5 pg (27.0-31.0); MEAN CORPUSCULAR HGB CONC 29.8 g/dL (32.0-36.0); MEAN PLATELET VOLUME 12.2 fL (7.4-11.4); MONOCYTES # (AUTO) 0.4 10^3/uL (0.0-1.0); MONOCYTES % (AUTO) 5.2 %; NEUTROPHILS # (AUTO) 6.5 10^3/uL (1.5-6.6); NEUTROPHILS % (AUTO) 78.6 %; PLT - PLATELET COUNT 257 10^3/uL (130-450); RED BLOOD COUNT 3.83 10^6/uL (4.70-6.10); RED CELL DISTRIBUTION WIDTH 13.4 % (12.0-15.0); WHITE BLOOD COUNT 8.3 x10^3/uL (4.8-10.8)
--- NOTE | 2021-12-09 13:13 | XRAY Report ---
PROCEDURE: Chest 1 View X-Ray INDICATIONS: chest pain TECHNIQUE: One view of the chest was acquired. COMPARISON: Chest x-ray 01/09/2021 FINDINGS: Surgical changes and devices: None. Lungs and pleura: No pleural effusions or pneumothorax. Lungs are clear. Mediastinum: Mediastinal contours appear normal. Heart size is mildly enlarged. Bones and chest wall: No suspicious bony lesions. Overlying soft tissues appear unremarkable. IMPRESSION: No acute pulmonary process. Reviewed by: Keya Meléndez MD on 12/09/2021 1:11 PM PDT Approved by: Keya Meléndez MD on 12/09/2021 1:11 PM PDT Station ID: [id number]
[2021-12-09 13:29] LABS: ALBUMIN 4.1 g/dL (3.2-5.5); ALBUMIN/GLOBULIN RATIO 1.2 (1.0-2.2); ALKALINE PHOSPHATASE 60 IU/L (42-121); ALT ALANINE AMINOTRANSFERASE < 10 IU/L (10-60); AST ASPARTATE AMINOTRANSFERASE 13 IU/L (10-42); BILIRUBIN,TOTAL 1.8 mg/dL (0.2-1.0); BUN - BLOOD UREA NITROGEN 42 mg/dL (6-20); CALCIUM 9.3 mg/dL (8.5-10.3); CARBON DIOXIDE - CO2 14 mmol/L (21-32); CHLORIDE 102 mmol/L (101-111); CK- CREATINE KINASE 51 IU/L (22-269); CREATININE 4.6 mg/dL (0.6-1.2); GFR - MDRD 13 (>89); GLUCOSE 110 mg/dL (70-100); LIPASE 35 U/L (22-51); MAGNESIUM 1.6 mg/dL (1.7-2.8); PHOSPHORUS 5.1 mg/dL (2.5-4.6); POTASSIUM 4.9 mmol/L (3.5-5.0); SODIUM 138 mmol/L (135-145); TOTAL PROTEIN 7.4 g/dL (6.7-8.2)
--- OUTSIDE RECORDS SUMMARY | 2021-12-09 13:33 | EXTERNAL MEDICAL SUMMARY RPT | Continuity of Care Document ---
:1950 Author Organization [facility] Address [address] [place] [address] Phone Care Team Providers Name Role Phone PA-C Unavailable Unavailable Allergies No information. Encounters No information. Medications No information. Problems date description facility [id number] Hypomagnesemia [facility] [id number] Chronic kidney disease, unspecified [facility] [id number] Acute kidney failure, unspecified [facility] 20211112 Pain in limb All 20211112 Pain in left foot All 20211112 Other abnormalities of gait and All mobility 20211112 Antalgic gait All 20211112 Abnormality of gait All Results No information. Vital Signs date measurement value source 20211112 temperature_standard 97.3 F 20211112 temperature_metric 36.28 C 20211112 respiration_rate 16 /min 20211112 height_standard 72 in 20211112 height_metric 182.88 cm 20211112 heart_rate 81 /min 20211112 BP_systolic 165 mm[Hg] [id number] BP_diastolic 106 mm[Hg]
--- NOTE | 2021-12-09 13:53 | CT Report ---
PROCEDURE: HEAD WO INDICATIONS: AMS, seizure, recent fall, anticoagulated TECHNIQUE: Noncontrast 4.5 mm thick angled axial sections acquired from the foramen magnum to the vertex. For r adiation dose reduction, the following was used: automated exposure control, adjustment of mA and/or kV according to patient size. COMPARISON: 12/07/2021. FINDINGS: Image quality: Excellent. CSF spaces: Basal cisterns are patent. No extra-axial fluid collections. The ventricles are symmet dustin in size and shape. Brain: No intracranial bleeds or masses. There is moderate cerebral volume loss for age, with resul tant ventricular and sulcal prominence. There are moderate periventricular and deep white matter chr onic small vessel ischemic changes. There is intracranial internal carotid artery and vertebral ruma ry atherosclerosis. Skull and face: Calvarium and visualized facial bones appear intact, without suspicious lesions. Ye opharyngeal tube noted. Sinuses: Mucosal thickening visualized left maxillary sinus. The mastoids are clear. IMPRESSION: No acute intracranial disease process. Reviewed by: Annie Berg MD, PhD on 12/09/2021 1:52 PM PDT Approved by: Annie Berg MD, PhD on 12/09/2021 1:52 PM PDT Station ID: [id number]
[2021-12-09 14:11] LABS: MUDS CUTOFF CONCENTRATIONS CUTOFF CONC BELOW:
[2021-12-09 14:13] LABS: BILIRUBIN,URINE NEGATIVE (NEGATIVE); GLUCOSE, URINE (UA) NEGATIVE (NEGATIVE); KETONES,URINE (UA) NEGATIVE (NEGATIVE); LEUKOCYTE ESTERASE, URINE NEGATIVE (NEGATIVE); NITRITE,URINE NEGATIVE (NEGATIVE); OCCULT BLOOD,URINE MODERATE (NEGATIVE); PH,URINE 5.5 PH (5.0-7.5); PROTEIN,URINE >=300 mg/dL (NEGATIVE); UROBILINOGEN,URINE 0.2 (NORMAL) E.U./dL (NORMAL)
[2021-12-09 14:21] LABS: CLARITY,URINE HAZY (CLEAR)
[2021-12-09 14:22] LABS: BACTERIA,URINE Moderate /HPF (None Seen); CASTS, URINE 3-5 Granular Casts /LPF; SQUAMOUS EPITHELIAL CELL,UR RARE Squamous (<= Few)
[2021-12-09 14:23] LABS: AMPHETAMINE SCREEN,URINE NEGATIVE (NEGATIVE); BARBITURATE SCREEN,UR NEGATIVE (NEGATIVE); BENZODIAZEPINES SCREEN, URINE NEGATIVE (NEGATIVE); COCAINE SCREEN URINE NEGATIVE (NEGATIVE); METHADONE SCREEN, URINE NEGATIVE (NEGATIVE); METHAMPHETAMINES SCREEN, URINE NEGATIVE (NEGATIVE); OPIATE SCREEN, URINE NEGATIVE (NEGATIVE); OXYCODONE SCREEN, URINE NEGATIVE (NEGATIVE); PROPOXYPHENE SCREEN, URINE NEGATIVE (NEGATIVE); THC CANNABINOID SCREEN, URINE NEGATIVE (NEGATIVE); TRICYCLIC ANTIDEPRESSANT,URINE NEGATIVE (NEGATIVE)
[2021-12-09] MEDS ORDERED: ONDANSETRON 4 MG/2 ML VIAL IVP PRN (15:00)
[2021-12-09] MEDS ORDERED: ALBUTEROL NEB 2.5 MG/3 ML INH PRN (15:08)
[2021-12-09] MEDS ORDERED: METOPROLOL 5 MG/5 ML VIAL IVP PRN (15:10)
[2021-12-09 15:17] LABS: B. PARAPERTUSSIS- RESP PCR PAN NOT DETECTED; B. PERTUSSIS- RESP PCR PANEL NOT DETECTED; C. PNEUMONIAE- RESP PCR PANEL NOT DETECTED; CORONAVIRUS 229E-RESP PCR NOT DETECTED; CORONAVIRUS HKU1-RESP PCR NOT DETECTED; CORONAVIRUS NL63-RESP PCR NOT DETECTED; CORONAVIRUS OC43-RESP PCR NOT DETECTED; HUMAN METAPNEUMOVIRUS NOT DETECTED; INFLUENZA A- RESP PCR PANEL NOT DETECTED; INFLUENZA B - RESP PCR PANEL NOT DETECTED; M. PNEUMONIAE- RESP PCR PANEL NOT DETECTED; PARAINFLUENZA VIRUS 1 NOT DETECTED; PARAINFLUENZA VIRUS 2 NOT DETECTED; PARAINFLUENZA VIRUS 3 NOT DETECTED; PARAINFLUENZA VIRUS 4 NOT DETECTED; RHINOVIRUS/ENTEROVIRUS NOT DETECTED; RSV- RESP PCR PANEL NOT DETECTED; SARS-CoV-2 -RESP PCR PANEL NOT DETECTED
--- NOTE | 2021-12-09 15:28 | HISTORY & PHYSICAL EXAMINATION ---
Chief Complaint - Chief Complaint Chief Complaint: seizure History of Present Illness - Admitted From Admitted From:: medical floor - History Obtained From Records Reviewed: [facility] and ER notes History obtained from: pt Exam Limitations: limited to his very hard hearing - History of Present Illness HPI Comment/Other: This is a 71-yrs-male with a past medical history significant for CKD stage IV, atrial fibrillation, diabetes, HLD, Parkinson disease, HTN, GERD, hard of hearing who present ER for seizure activity. pt is hard hearing, and a poor historian. Pt had twice witnessed seizure activities. When pt was visited by palliative care in the morning, he was noted that he had an approximately 7- minute convulsion shortly after he was waken up from sleeping. Palliative care provider called EMS. Pt was brought to ER for further evaluation. After he was arrival to the emergency department he began to have a generalized tonic-clonic seizure with noted rigidity of the right side, per ER provider report. Then pt developed apneic. Pt was put bag mask then switched to nonrebreather mask, pt remain adequately and spontaneously on his own breath and his saturations of 95 to 100% on room air. CT of head and CXR reveal unremarkable for acute process. ER provider reached [place] neurologist. Neurologist recommended patient is appropriate for observation in our hospital, would not benefit from an EEG at this time, and Keppra is an appropriate antiepileptic with renal dosed. When Writing down question to ask pt, Pt denies chest pain, shortness of breath, fever, and dysuria. Given above pt's medical conditions, medical team was consulted for admission. Discussed the care goal with pt, pt hope to have DNR/DNI for his code status. History - Past Medical History Cardiovascular: reports: Hypertension, Atrial fibrillation Respiratory: reports: Shortness of breath, Sleep apnea Neuro: reports: CVA, Parkinson's, Tremors Endocrine/Autoimmune: reports: Type 2 diabetes, Other GI: reports: GERD : reports: Renal insuffiency HEENT: reports: None Psych: reports: None Musculoskeletal: reports: Osteoarthritis, Gout Derm: reports: None MRSA Hx?: No - Past Surgical History General: reports: Cholecystectomy Ortho: reports: Spine surgery HEENT: reports: Other - Family & Social History Family History: Mother: (81 ; mother estranged/sister/brother estranged not know status), Father: Family History Comment/Other: Patient does not recall what his mother from. His father from complications of pneumonia. Records indicate the patient does not have any family history of coronary artery disease. Living Situation: Alone Social History Notes: He does not smoke tobacco products, use recreational substances or alcohol. - POLST Patient has POLST: Yes POLST Status: Full Code Meds/Allgy - Home Medications Home Medications: Ambulatory Orders Medication Instructions Recorded Confirmed Omeprazole 20 mg PO BID 10/02/13 12/07/21 Atorvastatin Calcium 40 mg PO QPM 01/24/16 12/07/21 Carbidopa/Levodopa 2 each PO QID 01/05/20 12/07/21 [Carbidopa-Levodopa 25-250 Tab] Rivaroxaban [Xarelto] 15 tab PO QDDINNER 07/23/20 12/07/21 Tamsulosin [Flomax] 0.4 mg PO DAILY #30 cap 09/30/20 12/09/21 Entacapone [Comtan] 200 mg PO BID 04/02/21 12/07/21 Multivit-Min/Folic/Vit K/Lycop 1 each PO DAILY 04/02/21 12/07/21 [One Daily Men's 50 Plus D3 Tab] calcitrioL [Rocaltrol] 0.5 mcg PO DAILY 04/02/21 12/09/21 Insulin Glargine [Lantus Solostar] 8 unit SQ HS 04/23/21 12/07/21 Senna [Senokot] 8.6 mg PO DAILY PRN 04/23/21 12/07/21 Albuterol Sulfate [Proair Hfa 2 puffs INH Q4HR PRN 11/18/21 12/07/21 Inhaler] Fluticasone [Flonase] 2 spray TAWANDA DAILY 11/18/21 12/07/21 diltiaZEM CD [Cardizem Cd] 180 mg PO DAILY 12/09/21 - Allergies Allergies/Adverse Reactions: Allergies Allergy/AdvReac Type Severity Reaction Status Date / Time allopurinol Allergy Unknown Verified 12/07/21 20:42 glipizide Allergy Unknown Verified 12/07/21 20:42 metformin Allergy Unknown Verified 12/07/21 20:42 Review of Systems - Constitutional Constitutional: denies: Fever, Chills - Ears, Nose & Throat Ears, Nose & Throat: denies: Ear pain - Cardiovascular Cariovascular: denies: Chest pain, Exertional dyspnea, Decr. exercise tolerance - Respiratory Respiratory: denies: Cough, SOB at rest, SOB with exertion - Gastrointestinal Gastrointestinal: denies: Abdominal pain - Genitourinary Genitourinary: denies: Dysuria Exam - Vital Signs Vital Signs: Vital Signs x48h Temp Pulse Resp BP Pulse Ox 12/09/21 15:00 87 20 136/76 H 100 12/09/21 14:30 91 17 150/83 H 100 12/09/21 14:29 100 12/09/21 14:05 93 22 152/92 H 100 12/09/21 12:45 37.4 C 107 H 18 154/80 H 84 L - Physical Exam General Appearance: positive: No acute distress, Alert. negative: Lethargic Eyes Bilateral: positive: Normal inspection, No lid inflammation ENT: positive: ENT inspection nml. negative: Purulent nasal drainage Neck: positive: Nml inspection, Trachea midline. negative: Tracheal deviation Respiratory: positive: Chest non-tender, No respiratory distress. negative: Wheezes, Rales Cardiovascular: positive: Regular rate & rhythm. negative: Tachycardia, Bradycardia, Systolic murmur Peripheral Pulses: positive: 2+ Abdomen: positive: Non-tender, Nml bowel sounds, No distention. negative: Tenderness Back: positive: Nml inspection Skin: positive: Color nml, Warm, Dry Extremities: positive: Non-tender, Nml appearance Neurologic/Psychiatric: positive: Sensation nml. negative: Weakness, Sensory loss, Facial droop, Slurred/abnml speech Conclusion/Plan - Problem List (1) Seizure Conclusion/Plan: pt had twice witnessed seizure. neurologist recommended Keppra with renal dosed. ER started with Keppra, will continue Keppra with pharmacy renal dosage. we will start seizure precaution, Ativan for acute seizure as needed, continue IV of Keppra, and pt may followup with neurologist as out-pt setting. (2) Diabetes mellitus Conclusion/Plan: pt has hx of DM2, now his glucose is 110. start slide scale for insulin, glucose check, and hypoglycemia protocol, and check A1C (3) CKD (chronic kidney disease) stage 4, GFR 15-29 ml/min Conclusion/Plan: pt has hx of CKD stage IV, he had AV fistula placed in the right arm. his cr eatinine is 4.6, slight elevated creatinine. pt already had 1 liter of NS from ER, we will start with gently IVF and continue lab and vital monitor, pt may followup with winery worker and palliative care. (4) Atrial fibrillation Conclusion/Plan: pt's HR is controlled at 86, will resume pt's home meds, and blood thinner after his home meds is confirmed by pharmacy and renal dosed as well. order tele monitor overnight, and metoprolol IV as needed Qualifiers: Atrial fibrillation type: longstanding persistent Qualified Code(s): I48.11 - Longstanding persistent atrial fibrillation (5) Parkinson disease Conclusion/Plan: pt has hx of Parkinson disease, will resume home meds to control after his home meds is confirmed. (6) Hypertension Conclusion/Plan: stable, will resume his home meds after confirmed, continue vital sign monitor. (7) GERD (gastroesophageal reflux disease) Conclusion/Plan: no complaints, we start with Protonix as her home meds - Lab Results Fish Bones: 12/09/21 12:56 12/09/21 12:56 Core Measures - Anticipated LOS I expect patient to be DC'd or transferred within 96 hours.: Yes - DVT/VTE - Prophylaxis VTE/DVT Device ordered at admit?: Yes VTE/DVT Prophylaxis med ordered at admit?: Yes
[2021-12-09] MEDS ORDERED: MAGNESIUM OXIDE 400 MG TABLET PO SCH (16:00)
[2021-12-09] MEDS ORDERED: LORazepam 2 MG/ML VIAL IVP PRN (16:25)
[2021-12-09] MEDS ORDERED: LORazepam 2 MG/ML VIAL IVP STA (16:30)
[2021-12-09] MEDS: SODIUM CHLORIDE 0.9% 1,000 ML IV SCH (16:30)
[2021-12-09] MEDS: INSULIN ASPART 300 UNIT/3 ML PEN SUBQ SCH ×2 (16:34→21:30)
[2021-12-09] MEDS: CARBIDOPA/LEVODOPA 25 MG/100 MG TABLET PO SCH ×2 (16:39→21:43)
[2021-12-09] MEDS: SODIUM CHLORIDE FLUSH 0.9% 10 ML SYRINGE IVP SCH (16:40)
[2021-12-09] MEDS ORDERED: HEPARIN 5,000 UNIT/ML VIAL SUBQ SCH (21:00)
[2021-12-09] MEDS: levETIRAcetam INJ 500 MG in SODIUM CHLORIDE 0.9% 100ML 100 ML IV SCH (21:46)
[2021-12-09] MEDS: HEPARIN 5,000 UNIT/ML VIAL SUBQ SCH (21:47)
[2021-12-10] MEDS: SODIUM CHLORIDE 0.9% 1,000 ML IV SCH (03:36)
[2021-12-10] MEDS: SODIUM CHLORIDE FLUSH 0.9% 10 ML SYRINGE IVP SCH ×3 (03:37→18:04)
[2021-12-10 05:29] LABS: BASOPHILS % (AUTO) 0.5 %; EOSINOPHILS % (AUTO) 0.4 %; HCT - HEMATOCRIT 28.4 % (42.0-52.0); HGB - HEMOGLOBIN 9.4 g/dL (14.0-18.0); LYMPHOCYTES # (AUTO) 0.6 10^3/uL (1.5-3.5); LYMPHOCYTES % (AUTO) 7.8 %; MEAN CORPUSCULAR HEMOGLOBIN 29.8 pg (27.0-31.0); MEAN CORPUSCULAR HGB CONC 33.1 g/dL (32.0-36.0); MEAN CORPUSCULAR VOLUME 90.2 fL (80.0-94.0); MEAN PLATELET VOLUME 12.5 fL (7.4-11.4); MONOCYTES # (AUTO) 0.7 10^3/uL (0.0-1.0); MONOCYTES % (AUTO) 8.3 %; NEUTROPHILS # (AUTO) 6.7 10^3/uL (1.5-6.6); NEUTROPHILS % (AUTO) 82.6 %; PLT - PLATELET COUNT 224 10^3/uL (130-450); RED BLOOD COUNT 3.15 10^6/uL (4.70-6.10); RED CELL DISTRIBUTION WIDTH 13.3 % (12.0-15.0); WHITE BLOOD COUNT 8.1 x10^3/uL (4.8-10.8)
[2021-12-10 05:36] LABS: CALCIUM 8.4 mg/dL (8.5-10.3); MAGNESIUM 1.7 mg/dL (1.7-2.8); POTASSIUM 4.2 mmol/L (3.5-5.0)
[2021-12-10] MEDS ORDERED: PANTOPRAZOLE 40 MG TABLET PO SCH (07:00)
[2021-12-10] MEDS: INSULIN ASPART 300 UNIT/3 ML PEN SUBQ SCH ×4 (08:05→21:33)
[2021-12-10] MEDS: TAMSULOSIN 0.4 MG CAPSULE PO SCH ×2 (08:28→11:00)
[2021-12-10] MEDS: CARBIDOPA/LEVODOPA 25 MG/100 MG TABLET PO SCH ×3 (08:28→13:08)
[2021-12-10] MEDS: levETIRAcetam INJ 500 MG in SODIUM CHLORIDE 0.9% 100ML 100 ML IV SCH ×2 (08:29→08:46)
[2021-12-10] MEDS: HEPARIN 5,000 UNIT/ML VIAL SUBQ SCH (08:29)
[2021-12-10] MEDS ORDERED: SODIUM CHLORIDE 0.9% IV STA (10:27)
[2021-12-10] MEDS ORDERED: VALPROATE IV STA (10:27)
--- NOTE | 2021-12-10 10:38 | CT Report ---
PROCEDURE: HEAD WO INDICATIONS: Recurrent seizures TECHNIQUE: Noncontrast 4.5 mm thick angled axial sections acquired from the foramen magnum to the vertex. For r adiation dose reduction, the following was used: automated exposure control, adjustment of mA and/or kV according to patient size. COMPARISON: None. FINDINGS: Image quality: Excellent. CSF spaces: Basal cisterns are patent. No extra-axial fluid collections. Ventricles are normal in size and shape. Brain: No midline shift. No intracranial masses or hemorrhage. Guillory-white matter interface is norm al. Skull and face: Calvarium and visualized facial bones are intact, without suspicious lesions. Sinuses: Visualized sinuses and mastoids are clear. IMPRESSION: No acute intracranial abnormality. Reviewed by: Faby Tony MD on 12/10/2021 10:36 AM PDT Approved by: Faby Tony MD on 12/10/2021 10:36 AM PDT Station ID: [id number]
--- NOTE | 2021-12-10 13:07 | PHARMACY PROGRESS NOTE ---
- Best Possible Medication History Admit Date and Time: 12/10/21 0934 Processed by: Pharmacy Medication History completed: Yes Patient Interview: Pt unable to participate Secondary Source(s): Physician records, Pharmacy records, Insurance records, Previous admit records As the person ultimately responsible for medication therapy, providers are able to order a medication from an existing home medication list in [facility] via the "Reconcile Routine" prior to Confirmation of that medication by community support associate. Such practice is discouraged except when the physician, in their clinical judgment, deems that a medical need exists for a medication without regard to previous use.
[2021-12-10 13:08] LABS: ESTIMATED AVERAGE GLUCOSE 137 mg/dL (70-100); HEMOGLOBIN A1c% 6.4 % (4.27-6.07)
--- NOTE | 2021-12-10 14:08 | PROVIDER PROGRESS NOTE ---
Assessment/Plan - Problem List (1) Seizure Assessment/Plan: He had twice witnessed genberalized seizure activity yesterday. CT head yesterday showed no acute findings. The neurologist Dr Ba that ED provider spoke to, recommended Keppra with renal dosing and observation. Today he had a witnessed seizure, just before his morning Keppra was dosed. Ativan ordered for acute seizure as needed. We will continue this. I called [facility] and spoke to the neurologist on-call, Dr. Damian. He recommended adding Depakote, Giving a 20 mg/kg loading dose (2000 mg IV) then starting 1000 mg p.o. twice daily. He also recommended decreasing the Keppra to 500 mg daily or 250 twice daily, down from 500 twice daily which is excessive for a patient with renal failure. A head CT will be repeated stat to assure there is no bleeding. The patient will be made an inpatient status due to continued seizure activity. (2) Diabetes mellitus Conclusion/Plan: He has DM2, A1c today came back at 6.4 indicating very good control. He is on Lantus 8U qhs. We started slide scale insulin coverage, glucose checks, and hypoglycemia protocol. Now that medications are reconciled, will resume some of his evening Lantus, using 5 units subcu (3) CKD (chronic kidney disease) stage 4, GFR 15-29 ml/min Conclusion/Plan: He has hx of CKD stage IV, he had AV fistula placed in the right arm. his creatinine was 4.6>> 4.0 today Pt had 1 liter of NS from ER, we have ordered gentle IVF,. Avoid nephrotoxins. Monitor BMP daily followup with store administrative assistant and palliative care. (4) Atrial fibrillation Conclusion/Plan: pt's HR is controlled, We will resume pt's home meds as they are reconciled today by Pharmacy, including his blood thinner as was OKd by Neurology Telemetry to continue (5) Parkinson disease Conclusion/Plan: He has hx of Parkinson disease, will resume his home meds today, when home meds are confirmed. (6) TIMBI-SHA SHOSHONE He is nearly completely deaf. He does not have his hearing aids. Communication is by writing to him but he can verbalize back (7) Hypertension Conclusion/Plan: Stable, will resume his home meds with holding parameters, continue vital sign monitor. (8) GERD (gastroesophageal reflux disease) Conclusion/Plan: He has no complaints, we continued with Protonix as her home meds - Current Meds Current Meds: Current Medications Generic Name Dose Route Start Last Admin Trade Name Freq PRN Reason Stop Dose Admin Carbidopa/Levodopa 1 tab 12/09/21 17:00 12/10/21 13:08 Carbidopa/Levodopa 25 Mg/100 Mg Tablet PO 1 tab QID PEREZ Administration Heparin Sodium (Porcine) 5,000 unit 12/09/21 21:00 12/10/21 08:29 Heparin 5,000 Unit/Ml Vial SUBQ 5,000 unit BID PEREZ Administration Sodium Chloride 1,000 mls @ 83.3 mls/hr 12/09/21 15:00 12/10/21 03:36 Normal Saline 0.9% IV 12/10/21 15:00 83.3 mls/hr .Q12H1M PEREZ Administration Insulin Aspart 1 - 5 unit 12/09/21 17:00 12/10/21 12:12 Insulin Aspart 300 Unit/3 Ml Pen SUBQ Not Given 0800,1200,1700,2100 [facility] Protocol Lorazepam 1 mg 12/09/21 16:25 12/10/21 08:37 Lorazepam 2 Mg/Ml Vial IVP 1 mg Q2H PRN Administration Seizure Pantoprazole Sodium 40 mg 12/10/21 07:00 12/10/21 07:04 Pantoprazole 40 Mg Tablet PO 40 mg QDAC PEREZ Administration Sodium Chloride 10 ml 12/09/21 17:00 12/10/21 08:30 Sodium Chloride Flush 0.9% 10 Ml Syringe IVP Not Given 0100,0900,1700 PEREZ Tamsulosin HCl 0.4 mg 12/10/21 09:00 12/10/21 11:00 Tamsulosin 0.4 Mg Capsule PO Not Given DAILY PEREZ - Lab Result Fish Bone Diagrams: 12/10/21 04:35 12/10/21 04:35 - Additional Planning My Orders: My Active Orders 12/10/21 21:00 Divalproex ER [Depakote ER] 1,000 mg PO BID 12/11/21 09:00 levETIRAcetam INJ [Keppra Inj] 500 mg Sodium Chloride 0.9% 100Ml [Normal Saline 0.9% 100Ml] 100 ml IV DAILY Subjective - Subjective Patient Reports: Other (Sleepy and has garbled speech after receiving IV Ativan (for seizure this morning)) Nursing Reports: Other (Patient reported to his RN that he was seeing lights and then he had a clonic seizure. IV Ativan was given.) Objective Vital Signs: Vital Signs - 24 hr 12/09/21 12/09/21 12/09/21 14:29 14:30 15:00 Temperature Heart Rate 91 87 Heart Rate [ Brachial] Heart Rate [ Monitoring electrodes] Respiratory 17 20 Rate Blood Pressure 150/83 H 136/76 H Blood Pressure [Left Brachial artery] O2 Saturation 100 100 100 12/09/21 12/09/21 12/09/21 15:30 15:44 16:00 Temperature 37.0 C Heart Rate 79 88 Heart Rate [ 93 Brachial] Heart Rate [ 86 Monitoring electrodes] Respiratory 20 18 20 Rate Blood Pressure 157/80 H 157/80 H Blood Pressure 136/88 H [Left Brachial artery] O2 Saturation 100 99 98 12/09/21 12/09/21 12/10/21 21:00 23:58 04:46 Temperature 36.9 C 36.5 C 36.4 C L Heart Rate Heart Rate [ 75 71 Brachial] Heart Rate [ 84 Monitoring electrodes] Respiratory 18 16 16 Rate Blood Pressure Blood Pressure 166/80 H 150/75 H 132/72 H [Left Brachial artery] O2 Saturation 98 98 97 12/10/21 12/10/21 12/10/21 07:07 08:25 13:20 Temperature 36.6 C 36.6 C 36.4 C L Heart Rate Heart Rate [ 69 78 81 Brachial] Heart Rate [ Monitoring electrodes] Respiratory 16 16 16 Rate Blood Pressure Blood Pressure 141/74 H 141/74 H 140/76 H [Left Brachial artery] O2 Saturation 97 98 100 Oxygen O2 Source Room air I&O (Last 24 Hrs): Intake and Output Totals x24h 12/08/21 12/09/21 12/10/21 23:59 23:59 23:59 Intake Total 1460 1499.63 Output Total 1850 1000 Balance -390 499.63 General: Other (Lethargic (after iv Ativan), but awakens and is able to communicate. He is hard of hearing therefore we write things, he answers verbally. He is currently eating brteakfast without any problems.) HEENT: Mucous membr. moist/pink Neck: Supple, No JVD Neuro: Other (Nonfocal but has severe TIMBI-SHA SHOSHONE and is lethargic (after IV Ativan and poss post-ictal)) Cardiovascular: Regular rate, No murmurs Respiratory: No respiratory distress, Breath sounds nml Abdomen: Normal bowel sounds, Soft Extremities: No clubbing, No edema - Results Results: Laboratory Results WBC 8.1 x10^3/uL (4.8-10.8) 12/10/21 04:35 RBC 3.15 10^6/uL (4.70-6.10) L 12/10/21 04:35 Hgb 9.4 g/dL (14.0-18.0) L 12/10/21 04:35 Hct 28.4 % (42.0-52.0) L 12/10/21 04:35 MCV 90.2 fL (80.0-94.0) 12/10/21 04:35 MCH 29.8 pg (27.0-31.0) 12/10/21 04:35 MCHC 33.1 g/dL (32.0-36.0) 12/10/21 04:35 RDW 13.3 % (12.0-15.0) 12/10/21 04:35 Plt Count 224 10^3/uL (130-450) 12/10/21 04:35 MPV 12.5 fL (7.4-11.4) H 12/10/21 04:35 Neut # (Auto) 6.7 10^3/uL (1.5-6.6) H 12/10/21 04:35 Lymph # (Auto) 0.6 10^3/uL (1.5-3.5) L 12/10/21 04:35 [place] # (Auto) 0.7 10^3/uL (0.0-1.0) 12/10/21 04:35 Eos # (Auto) 0.0 10^3/uL (0.0-0.7) 12/10/21 04:35 Baso # (Auto) 0.0 10^3/uL (0.0-0.1) 12/10/21 04:35 Absolute Nucleated RBC 0.00 x10^3/uL 12/10/21 04:35 Nucleated RBC % 0.0 /100WBC 12/10/21 04:35 APTT 28.1 secs (24.9-33.3) 12/10/21 09:50 Sodium 132 mmol/L (135-145) L 12/10/21 04:35 Potassium 4.2 mmol/L (3.5-5.0) 12/10/21 04:35 Chloride 106 mmol/L (101-111) 12/10/21 04:35 Carbon Dioxide 18 mmol/L (21-32) L 12/10/21 04:35 Anion Gap 8.0 (6-13) 12/10/21 04:35 BUN 41 mg/dL (6-20) H 12/10/21 04:35 Creatinine 4.0 mg/dL (0.6-1.2) H 12/10/21 04:35 Estimated GFR (MDRD) 15 (>89) L 12/10/21 04:35 Glucose 97 mg/dL (70-100) 12/10/21 04:35 Estimat Average Glucose 137 mg/dL (70-100) H 12/10/21 04:35 Hemoglobin A1c % 6.4 % (4.27-6.07) H 12/10/21 04:35 Calcium 8.4 mg/dL (8.5-10.3) L 12/10/21 04:35 Phosphorus 5.1 mg/dL (2.5-4.6) H 12/09/21 12:56 Magnesium 1.7 mg/dL (1.7-2.8) 12/10/21 04:35 Total Bilirubin 1.8 mg/dL (0.2-1.0) H 12/09/21 12:56 AST 13 IU/L (10-42) 12/09/21 12:56 ALT < 10 IU/L (10-60) L 12/09/21 12:56 Alkaline Phosphatase 60 IU/L (42-121) 12/09/21 12:56 Total Creatine Kinase 51 IU/L (22-269) 12/09/21 12:56 Troponin I High Sens 33.5 ng/L (2.3-19.7) H* 12/09/21 19:01 Total Protein 7.4 g/dL (6.7-8.2) 12/09/21 12:56 Albumin 4.1 g/dL (3.2-5.5) 12/09/21 12:56 Globulin 3.3 g/dL (2.1-4.2) 12/09/21 12:56 Albumin/Globulin Ratio 1.2 (1.0-2.2) 12/09/21 12:56 Lipase 35 U/L (22-51) 12/09/21 12:56 Urine Color YELLOW 12/09/21 13:59 Urine Clarity HAZY (CLEAR) 12/09/21 13:59 Urine pH 5.5 PH (5.0-7.5) 12/09/21 13:59 Ur Specific [place] >=1.030 (1.002-1.030) H 12/09/21 13:59 Urine Protein >=300 mg/dL (NEGATIVE) H 12/09/21 13:59 Urine Glucose (UA) NEGATIVE mg/dL (NEGATIVE) 12/09/21 13:59 Urine Ketones NEGATIVE mg/dL (NEGATIVE) 12/09/21 13:59 Urine Occult Blood MODERATE (NEGATIVE) H 12/09/21 13:59 Urine Nitrite NEGATIVE (NEGATIVE) 12/09/21 13:59 Urine Bilirubin NEGATIVE (NEGATIVE) 12/09/21 13:59 Urine Urobilinogen 0.2 (NORMAL) E.U./dL (NORMAL) 12/09/21 13:59 Ur Leukocyte Esterase NEGATIVE (NEGATIVE) 12/09/21 13:59 Urine RBC 11-25 /HPF (0-5) H 12/09/21 13:59 Urine WBC 6-10 /HPF (0-3) H 12/09/21 13:59 Ur Squamous Epith Cells RARE Squamous (<= Few) 12/09/21 13:59 Urine Bacteria Moderate /HPF (None Seen) H 12/09/21 13:59 Urine Casts 3-5 Granular Casts /LPF 12/09/21 13:59 Ur Microscopic Review INDICATED 12/09/21 13:59 Urine Culture Comments NOT INDICATED 12/09/21 13:59 Nasal Adenovirus (PCR) NOT DETECTED 12/09/21 13:59 Nasal B. parapertussis DNA (PCR) NOT DETECTED 12/09/21 13:59 Nasal Coronavir 229E PCR NOT DETECTED 12/09/21 13:59 Nasal Coronavir HKU1 PCR NOT DETECTED 12/09/21 13:59 Nasal Coronavir NL63 PCR NOT DETECTED 12/09/21 13:59 Nasal Coronavir OC43 PCR NOT DETECTED 12/09/21 13:59 Nasal Enterovir/Rhinovir PCR NOT DETECTED 12/09/21 13:59 Nasal Influenza B PCR NOT DETECTED 12/09/21 13:59 Nasal Influenza A PCR NOT DETECTED 12/09/21 13:59 Nasal Parainfluen 1 PCR NOT DETECTED 12/09/21 13:59 Nasal Parainfluen 2 PCR NOT DETECTED 12/09/21 13:59 Nasal Parainfluen 3 PCR NOT DETECTED 12/09/21 13:59 Nasal Parainfluen 4 PCR NOT DETECTED 12/09/21 13:59 Nasal RSV (PCR) NOT DETECTED 12/09/21 13:59 Nasal B.pertussis DNA PCR NOT DETECTED 12/09/21 13:59 Nasal C.pneumoniae (PCR) NOT DETECTED 12/09/21 13:59 Ye Human Metapneumo PCR NOT DETECTED 12/09/21 13:59 Nasal M.pneumoniae (PCR) NOT DETECTED 12/09/21 13:59 Nasal SARS-CoV-2 (PCR) NOT DETECTED 12/09/21 13:59 Urine Opiates Screen NEGATIVE (NEGATIVE) 12/09/21 13:59 Ur Oxycodone Screen NEGATIVE (NEGATIVE) 12/09/21 13:59 Urine Methadone Screen NEGATIVE (NEGATIVE) 12/09/21 13:59 Ur Propoxyphene Screen NEGATIVE (NEGATIVE) 12/09/21 13:59 Ur Barbiturates Screen NEGATIVE (NEGATIVE) 12/09/21 13:59 Ur Tricyclics Screen NEGATIVE (NEGATIVE) 12/09/21 13:59 Ur Phencyclidine Scrn NEGATIVE (NEGATIVE) 12/09/21 13:59 Ur Amphetamine Screen NEGATIVE (NEGATIVE) 12/09/21 13:59 U Methamphetamines Scrn NEGATIVE (NEGATIVE) 12/09/21 13:59 U Benzodiazepines Scrn NEGATIVE (NEGATIVE) 12/09/21 13:59 Urine Cocaine Screen NEGATIVE (NEGATIVE) 12/09/21 13:59 U Cannabinoids Screen NEGATIVE (NEGATIVE) 12/09/21 13:59 - Procedures Procedures: Procedures [facility] (04/17/14)
[2021-12-10] MEDS ORDERED: NON FORMULARY MED (Albuterol Sulfate [Proair Hfa Inhaler] 8.5 GM Hfa.Aer.Ad) INH PRN (14:19)
[2021-12-10] MEDS: CARBIDOPA/LEVODOPA 25 MG/250 MG TABLET PO SCH ×2 (15:49→20:20)
[2021-12-10] MEDS: PANTOPRAZOLE 40 MG TABLET PO SCH (15:49)
[2021-12-10] MEDS: ACETAMINOPHEN 325 MG TABLET PO PRN (19:18)
[2021-12-10] MEDS: ATORVASTATIN 40 MG TABLET PO SCH (20:20)
[2021-12-10] MEDS: DIVALPROEX ER 250 MG TABLET PO SCH (20:20)
[2021-12-10] MEDS: APIXABAN 5 MG TABLET PO SCH (20:20)
[2021-12-10] MEDS: ENTACAPONE 200 MG TABLET PO SCH (20:21)
[2021-12-10] MEDS ORDERED: INSULIN GLARGINE 300 UNIT/3 ML PEN SUBQ SCH (21:00)
[2021-12-10] MEDS ORDERED: NON FORMULARY MED (Omeprazole [Omeprazole] 20 MG Capsule.Dr) PO SCH (21:00)
[2021-12-11] MEDS: SODIUM CHLORIDE FLUSH 0.9% 10 ML SYRINGE IVP SCH ×3 (00:15→16:33)
[2021-12-11] MEDS: CARBIDOPA/LEVODOPA 25 MG/250 MG TABLET PO SCH ×4 (03:34→20:05)
[2021-12-11 06:57] LABS: BASOPHILS # (AUTO) 0.1 10^3/uL (0.0-0.1); EOSINOPHILS # (AUTO) 0.1 10^3/uL (0.0-0.7); HCT - HEMATOCRIT 29.3 % (42.0-52.0); HGB - HEMOGLOBIN 9.4 g/dL (14.0-18.0); LYMPHOCYTES % (AUTO) 18.6 %; MEAN CORPUSCULAR HEMOGLOBIN 29.6 pg (27.0-31.0); MEAN CORPUSCULAR HGB CONC 32.1 g/dL (32.0-36.0); MEAN CORPUSCULAR VOLUME 92.1 fL (80.0-94.0); MEAN PLATELET VOLUME 12.6 fL (7.4-11.4); MONOCYTES # (AUTO) 0.5 10^3/uL (0.0-1.0); MONOCYTES % (AUTO) 9.6 %; NEUTROPHILS # (AUTO) 3.5 10^3/uL (1.5-6.6); NEUTROPHILS % (AUTO) 68.2 %; PLT - PLATELET COUNT 217 10^3/uL (130-450); RED BLOOD COUNT 3.18 10^6/uL (4.70-6.10); RED CELL DISTRIBUTION WIDTH 13.9 % (12.0-15.0); WHITE BLOOD COUNT 5.1 x10^3/uL (4.8-10.8)
[2021-12-11 07:05] LABS: CALCIUM 8.6 mg/dL (8.5-10.3); CREATININE 3.8 mg/dL (0.6-1.2); POTASSIUM 4.3 mmol/L (3.5-5.0)
[2021-12-11] MEDS: PANTOPRAZOLE 40 MG TABLET PO SCH ×2 (07:28→16:31)
[2021-12-11] MEDS: INSULIN ASPART 300 UNIT/3 ML PEN SUBQ SCH ×4 (08:04→21:03)
[2021-12-11] MEDS: FLUTICASONE NASAL SPRAY NAS SCH (08:16)
[2021-12-11] MEDS: APIXABAN 5 MG TABLET PO SCH ×2 (08:16→20:06)
[2021-12-11] MEDS: calcitrioL 0.25 MCG CAPSULE PO SCH (08:16)
[2021-12-11] MEDS: DIVALPROEX ER 250 MG TABLET PO SCH ×2 (08:16→20:06)
[2021-12-11] MEDS: MULTIVITAMIN TABLET PO SCH (08:16)
[2021-12-11] MEDS: diltiaZEM CD 180 MG CAPSULE PO SCH (08:16)
[2021-12-11] MEDS: TAMSULOSIN 0.4 MG CAPSULE PO SCH (08:17)
[2021-12-11] MEDS: ENTACAPONE 200 MG TABLET PO SCH ×2 (08:18→20:09)
[2021-12-11] MEDS: levETIRAcetam INJ 500 MG in SODIUM CHLORIDE 0.9% 100ML 100 ML IV SCH (09:05)
[2021-12-11] MEDS: ACETAMINOPHEN 325 MG TABLET PO PRN (16:30)
[2021-12-11] MEDS: SODIUM CHLORIDE FLUSH 0.9% 10 ML SYRINGE IVP PRN (16:33)
--- NOTE | 2021-12-11 18:19 | PROVIDER PROGRESS NOTE ---
Assessment/Plan - Problem List (1) Seizure Assessment/Plan: He had twice witnessed generalized seizure at admission 2 days ago and once yesterday, therefore was made an Inpatient. CT head repeated yesterday showed no acute findings. Keppra was started 2 days ago, after ED spoke to neurologist Dr Ba. Cary ordered for acute seizure as needed. We will continue this. Yesterday I called [place] and spoke to the neurologist Dr. Damian. He recommended adding Depakote, loading dose (2000 mg IV) then starting 1000 mg p.o. twice daily. He also recommended decreasing the Keppra to 500 mg daily or 250 twice daily, down from 500 twice daily which is excessive for a patient with renal failure. Because of this morning's "bright lights", he is not ready for discharge yet. Will have him evaluated by PT due to Hx of recent "frequent falls" (or these may have been seizures) and continue with these new seizure meds and management (2) Fall at home Conclusion/Plan: Two days before this ER visit, he had a ground-level fall and the fall probably led to the seizures, according to neurology. We then learned today that he has had multiple frequent falls and needed inpatient hospitalization elsewhere and then SNF for PT rehab. Will have him evaluated by PT due to Hx of recent "frequent falls" (or these may have been seizures). Today is Sunday, we have no inpatient physical therapist. He will be evaluated tomorrow. (3) Diabetes mellitus Conclusion/Plan: He has DM2, A1c came back at 6.4 indicating very good control. He is on Lantus 8U qhs at home. Here he was put on 5U qhs. With that dose he had a low glu in a.m. of 72. We will decrease the Lantus dose while here down to 2 units sq nightly Continue sliding scale insulin coverage, glucose checks, and hypoglycemia protocol. (4) CKD (chronic kidney disease) stage 4, GFR 15-29 ml/min Conclusion/Plan: He has hx of CKD stage IV, he had AV fistula placed in the right arm. his creatinine was 4.6>> 4.0>> 3.8 today Pt had 1 liter of NS in ER. No further iv fluids continue now. Avoid nephrotoxins. Monitor BMP daily Followup with esytablished vp director of creative strategy and palliative care. (5) Atrial fibrillation Conclusion/Plan: pt's HR is controlled, We will resume pt's home meds including his blood thinner as was OKd by Neurology Telemetry to continue (6) Parkinson disease Conclusion/Plan: He has hx of Parkinson disease, we resumed his home meds. (7) [place] He is nearly completely deaf. He does not have his hearing aids. Communication is by writing to him but he can verbalize back (8) Hypertension Conclusion/Plan: Stable, we resumed his home meds plus holding parameters, continue vital sign monitor. (9) Chronic LBP The patient requests that Tylenol and codeine No. 3 be ordered. (10) GERD (gastroesophageal reflux disease) Conclusion/Plan: He has no complaints, we continued with Protonix as her home meds - Current Meds Current Meds: Current Medications Generic Name Dose Route Start Last Admin Trade Name Freq PRN Reason Stop Dose Admin Acetaminophen 650 mg 12/09/21 15:00 12/11/21 16:30 Acetaminophen 325 Mg Tablet PO 650 mg Q4HR PRN Administration Pain 1 to 4, or Fever Apixaban 5 mg 12/10/21 21:00 12/11/21 08:16 Apixaban 5 Mg Tablet PO 5 mg BID PEREZ Administration Atorvastatin Calcium 40 mg 12/10/21 21:00 12/10/21 20:20 Atorvastatin 40 Mg Tablet PO 40 mg QPM PEREZ Administration Calcitriol 0.5 mcg 12/11/21 09:00 12/11/21 08:16 Calcitriol 0.25 Mcg Capsule PO 0.5 mcg DAILY PEREZ Administration Carbidopa/Levodopa 2 tab 12/10/21 15:00 12/11/21 13:50 Carbidopa/Levodopa 25 Mg/250 Mg Tablet PO 2 tab 0200,0800,1400,2000 PEREZ Administration Diltiazem HCl 180 mg 12/11/21 09:00 12/11/21 08:16 Diltiazem Cd 180 Mg Capsule PO 180 mg DAILY PEREZ Administration Divalproex Sodium 1,000 mg 12/10/21 21:00 12/11/21 08:16 Divalproex Er 250 Mg Tablet PO 1,000 mg BID PEREZ Administration Entacapone 200 mg 12/10/21 21:00 12/11/21 08:18 Entacapone 200 Mg Tablet PO Not Given BID PEREZ Fluticasone Propionate 1 sprays 12/11/21 09:00 12/11/21 08:16 Fluticasone Nasal [place] TAWANDA 1 spr DAILY PEREZ Administration Levetiracetam 500 mg/ Sodium 105 mls @ 400 mls/hr 12/11/21 09:00 12/11/21 09:42 Chloride IV Infused DAILY PEREZ Infusion Insulin Aspart 1 - 5 unit 12/09/21 17:00 12/11/21 16:32 Insulin Aspart 300 Unit/3 Ml Pen SUBQ Not Given 0800,1200,1700,2100 [facility] Protocol Lorazepam 1 mg 12/09/21 16:25 12/10/21 08:37 Lorazepam 2 Mg/Ml Vial IVP 1 mg Q2H PRN Administration Seizure Multivitamins 1 tab 12/11/21 08:00 12/11/21 08:16 Multivitamin Tablet PO 1 tab DAILYWM PEREZ Administration Pantoprazole Sodium 40 mg 12/10/21 16:00 12/11/21 16:31 Pantoprazole 40 Mg Tablet PO 40 mg BIDAC PEREZ Administration Sodium Chloride 10 ml 12/09/21 15:00 12/11/21 16:33 Sodium Chloride Flush 0.9% 10 Ml Syringe IVP 10 ml PRN PRN Administration NEEDED PER PROVIDER ORDERS Sodium Chloride 10 ml 12/09/21 17:00 12/11/21 16:33 Sodium Chloride Flush 0.9% 10 Ml Syringe IVP 10 ml 0100,0900,1700 PEREZ Administration Tamsulosin HCl 0.4 mg 12/11/21 09:00 12/11/21 08:17 Tamsulosin 0.4 Mg Capsule PO 0.4 mg DAILY PEREZ Administration - Lab Result Fish Bone Diagrams: 12/11/21 06:17 12/11/21 06:17 - Additional Planning My Orders: My Active Orders 12/10/21 21:00 Apixaban [Eliquis] 5 mg PO BID Atorvastatin [Lipitor] 40 mg PO QPM Divalproex ER [Depakote ER] 1,000 mg PO BID Entacapone [Comtan] 200 mg PO BID 12/11/21 Evaluate and Treat PT [PT] Routine 12/11/21 08:00 Multivitamin [Theragran] 1 tab PO DAILYWM 12/11/21 09:00 Fluticasone [Flonase] 1 sprays TAWANDA DAILY Tamsulosin [Flomax] 0.4 mg PO DAILY calcitrioL [Rocaltrol] 0.5 mcg PO DAILY diltiaZEM CD [Cardizem Cd] 180 mg PO DAILY levETIRAcetam INJ [Keppra Inj] 500 mg Sodium Chloride 0.9% 100Ml [Normal Saline 0.9% 100Ml] 100 ml IV DAILY 12/11/21 21:00 Insulin Glargine [Lantus Solostar] 2 unit SUBQ QPM Subjective - Subjective Patient Reports: Feeling Better Nursing Reports: Other (He reported to his RN that he did "see flashing lights in his left field of vision" this morning x1. There was no subsequent clonic seizure activity today.) Objective Vital Signs: Vital Signs - 24 hr 12/10/21 12/10/21 12/11/21 20:56 23:52 05:46 Temperature 36.3 C L 36.4 C L 36.5 C Heart Rate [ 49 L 67 60 Brachial] Respiratory 18 16 18 Rate Blood Pressure 117/56 L 122/63 112/61 [Left Brachial artery] O2 Saturation 100 100 100 12/11/21 12/11/21 12/11/21 06:54 13:00 16:00 Temperature 36.4 C L 36.5 C 36.4 C L Heart Rate [ 65 65 65 Brachial] Respiratory 16 16 16 Rate Blood Pressure 130/69 112/57 L 133/66 H [Left Brachial artery] O2 Saturation 100 98 99 Oxygen O2 Source Room air I&O (Last 24 Hrs): Intake and Output Totals x24h 12/09/21 12/10/21 12/11/21 23:59 23:59 23:59 Intake Total 1460 3139.63 805 Output Total 1850 1000 Balance -390 2139.63 805 General: Alert, Oriented x3, Other ([place]) HEENT: Mucous membr. moist/pink Neck: Supple, No JVD Neuro: Alert, Non Focal, Other ([place]) Cardiovascular: No murmurs Respiratory: Chest non-tender Abdomen: Soft Extremities: No clubbing, No edema - Results Results: Laboratory Results WBC 5.1 x10^3/uL (4.8-10.8) 12/11/21 06:17 RBC 3.18 10^6/uL (4.70-6.10) L 12/11/21 06:17 Hgb 9.4 g/dL (14.0-18.0) L 12/11/21 06:17 Hct 29.3 % (42.0-52.0) L 12/11/21 06:17 MCV 92.1 fL (80.0-94.0) 12/11/21 06:17 MCH 29.6 pg (27.0-31.0) 12/11/21 06:17 MCHC 32.1 g/dL (32.0-36.0) 12/11/21 06:17 RDW 13.9 % (12.0-15.0) 12/11/21 06:17 Plt Count 217 10^3/uL (130-450) 12/11/21 06:17 MPV 12.6 fL (7.4-11.4) H 12/11/21 06:17 Neut # (Auto) 3.5 10^3/uL (1.5-6.6) 12/11/21 06:17 Lymph # (Auto) 1.0 10^3/uL (1.5-3.5) L 12/11/21 06:17 [place] # (Auto) 0.5 10^3/uL (0.0-1.0) 12/11/21 06:17 Eos # (Auto) 0.1 10^3/uL (0.0-0.7) 12/11/21 06:17 Baso # (Auto) 0.1 10^3/uL (0.0-0.1) 12/11/21 06:17 Absolute Nucleated RBC 0.00 x10^3/uL 12/11/21 06:17 Nucleated RBC % 0.0 /100WBC 12/11/21 06:17 APTT 28.1 secs (24.9-33.3) 12/10/21 09:50 Sodium 138 mmol/L (135-145) 12/11/21 06:17 Potassium 4.3 mmol/L (3.5-5.0) 12/11/21 06:17 Chloride 108 mmol/L (101-111) 12/11/21 06:17 Carbon Dioxide 20 mmol/L (21-32) L 12/11/21 06:17 Anion Gap 10.0 (6-13) 12/11/21 06:17 BUN 40 mg/dL (6-20) H 12/11/21 06:17 Creatinine 3.8 mg/dL (0.6-1.2) H 12/11/21 06:17 Estimated GFR (MDRD) 16 (>89) L 12/11/21 06:17 Glucose 92 mg/dL (70-100) 12/11/21 06:17 Estimat Average Glucose 137 mg/dL (70-100) H 12/10/21 04:35 Hemoglobin A1c % 6.4 % (4.27-6.07) H 12/10/21 04:35 Calcium 8.6 mg/dL (8.5-10.3) 12/11/21 06:17 Phosphorus 5.1 mg/dL (2.5-4.6) H 12/09/21 12:56 Magnesium 1.7 mg/dL (1.7-2.8) 12/10/21 04:35 Total Bilirubin 1.8 mg/dL (0.2-1.0) H 12/09/21 12:56 AST 13 IU/L (10-42) 12/09/21 12:56 ALT < 10 IU/L (10-60) L 12/09/21 12:56 Alkaline Phosphatase 60 IU/L (42-121) 12/09/21 12:56 Total Creatine Kinase 51 IU/L (22-269) 12/09/21 12:56 Troponin I High Sens 33.5 ng/L (2.3-19.7) H* 12/09/21 19:01 Total Protein 7.4 g/dL (6.7-8.2) 12/09/21 12:56 Albumin 4.1 g/dL (3.2-5.5) 12/09/21 12:56 Globulin 3.3 g/dL (2.1-4.2) 12/09/21 12:56 Albumin/Globulin Ratio 1.2 (1.0-2.2) 12/09/21 12:56 Lipase 35 U/L (22-51) 12/09/21 12:56 Urine Color YELLOW 12/09/21 13:59 Urine Clarity HAZY (CLEAR) 12/09/21 13:59 Urine pH 5.5 PH (5.0-7.5) 12/09/21 13:59 Ur Specific [place] >=1.030 (1.002-1.030) H 12/09/21 13:59 Urine Protein >=300 mg/dL (NEGATIVE) H 12/09/21 13:59 Urine Glucose (UA) NEGATIVE mg/dL (NEGATIVE) 12/09/21 13:59 Urine Ketones NEGATIVE mg/dL (NEGATIVE) 12/09/21 13:59 Urine Occult Blood MODERATE (NEGATIVE) H 12/09/21 13:59 Urine Nitrite NEGATIVE (NEGATIVE) 12/09/21 13:59 Urine Bilirubin NEGATIVE (NEGATIVE) 12/09/21 13:59 Urine Urobilinogen 0.2 (NORMAL) E.U./dL (NORMAL) 12/09/21 13:59 Ur Leukocyte Esterase NEGATIVE (NEGATIVE) 12/09/21 13:59 Urine RBC 11-25 /HPF (0-5) H 12/09/21 13:59 Urine WBC 6-10 /HPF (0-3) H 12/09/21 13:59 Ur Squamous Epith Cells RARE Squamous (<= Few) 12/09/21 13:59 Urine Bacteria Moderate /HPF (None Seen) H 12/09/21 13:59 Urine Casts 3-5 Granular Casts /LPF 12/09/21 13:59 Ur Microscopic Review INDICATED 12/09/21 13:59 Urine Culture Comments NOT INDICATED 12/09/21 13:59 Nasal Adenovirus (PCR) NOT DETECTED 12/09/21 13:59 Nasal B. parapertussis DNA (PCR) NOT DETECTED 12/09/21 13:59 Nasal Coronavir 229E PCR NOT DETECTED 12/09/21 13:59 Nasal Coronavir HKU1 PCR NOT DETECTED 12/09/21 13:59 Nasal Coronavir NL63 PCR NOT DETECTED 12/09/21 13:59 Nasal Coronavir OC43 PCR NOT DETECTED 12/09/21 13:59 Nasal Enterovir/Rhinovir PCR NOT DETECTED 12/09/21 13:59 Nasal Influenza B PCR NOT DETECTED 12/09/21 13:59 Nasal Influenza A PCR NOT DETECTED 12/09/21 13:59 Nasal Parainfluen 1 PCR NOT DETECTED 12/09/21 13:59 Nasal Parainfluen 2 PCR NOT DETECTED 12/09/21 13:59 Nasal Parainfluen 3 PCR NOT DETECTED 12/09/21 13:59 Nasal Parainfluen 4 PCR NOT DETECTED 12/09/21 13:59 Nasal RSV (PCR) NOT DETECTED 12/09/21 13:59 Nasal B.pertussis DNA PCR NOT DETECTED 12/09/21 13:59 Nasal C.pneumoniae (PCR) NOT DETECTED 12/09/21 13:59 [place] Human Metapneumo PCR NOT DETECTED 12/09/21 13:59 Nasal M.pneumoniae (PCR) NOT DETECTED 12/09/21 13:59 Nasal SARS-CoV-2 (PCR) NOT DETECTED 12/09/21 13:59 Urine Opiates Screen NEGATIVE (NEGATIVE) 12/09/21 13:59 Ur Oxycodone Screen NEGATIVE (NEGATIVE) 12/09/21 13:59 Urine Methadone Screen NEGATIVE (NEGATIVE) 12/09/21 13:59 Ur Propoxyphene Screen NEGATIVE (NEGATIVE) 12/09/21 13:59 Ur Barbiturates Screen NEGATIVE (NEGATIVE) 12/09/21 13:59 Ur Tricyclics Screen NEGATIVE (NEGATIVE) 12/09/21 13:59 Ur Phencyclidine Scrn NEGATIVE (NEGATIVE) 12/09/21 13:59 Ur Amphetamine Screen NEGATIVE (NEGATIVE) 12/09/21 13:59 U Methamphetamines Scrn NEGATIVE (NEGATIVE) 12/09/21 13:59 U Benzodiazepines Scrn NEGATIVE (NEGATIVE) 12/09/21 13:59 Urine Cocaine Screen NEGATIVE (NEGATIVE) 12/09/21 13:59 U Cannabinoids Screen NEGATIVE (NEGATIVE) 12/09/21 13:59 - Procedures Procedures: Procedures [facility] (04/17/14)
[2021-12-11] MEDS ORDERED: ACETAMINOPHEN/CODEINE 300 MG/30 MG TABLET PO PRN (18:42)
[2021-12-11] MEDS: ATORVASTATIN 40 MG TABLET PO SCH (20:06)
[2021-12-11] MEDS: INSULIN GLARGINE 300 UNIT/3 ML PEN SUBQ SCH (21:06)
[2021-12-12] MEDS: SODIUM CHLORIDE FLUSH 0.9% 10 ML SYRINGE IVP PRN (01:13)
[2021-12-12] MEDS: SODIUM CHLORIDE FLUSH 0.9% 10 ML SYRINGE IVP SCH ×3 (01:14→16:50)
[2021-12-12] MEDS: CARBIDOPA/LEVODOPA 25 MG/250 MG TABLET PO SCH ×4 (01:41→20:10)
[2021-12-12 05:06] LABS: BASOPHILS % (AUTO) 0.5 %; EOSINOPHILS # (AUTO) 0.1 10^3/uL (0.0-0.7); EOSINOPHILS % (AUTO) 2.1 %; HCT - HEMATOCRIT 27.5 % (42.0-52.0); HGB - HEMOGLOBIN 8.8 g/dL (14.0-18.0); LYMPHOCYTES # (AUTO) 0.9 10^3/uL (1.5-3.5); LYMPHOCYTES % (AUTO) 13.9 %; MEAN CORPUSCULAR HEMOGLOBIN 29.3 pg (27.0-31.0); MEAN CORPUSCULAR VOLUME 91.7 fL (80.0-94.0); MEAN PLATELET VOLUME 12.4 fL (7.4-11.4); MONOCYTES # (AUTO) 0.5 10^3/uL (0.0-1.0); MONOCYTES % (AUTO) 8.7 %; NEUTROPHILS # (AUTO) 4.6 10^3/uL (1.5-6.6); NEUTROPHILS % (AUTO) 74.5 %; PLT - PLATELET COUNT 204 10^3/uL (130-450); RED CELL DISTRIBUTION WIDTH 13.6 % (12.0-15.0); WHITE BLOOD COUNT 6.2 x10^3/uL (4.8-10.8)
[2021-12-12 05:14] LABS: CALCIUM 8.3 mg/dL (8.5-10.3); POTASSIUM 4.1 mmol/L (3.5-5.0)
[2021-12-12] MEDS: PANTOPRAZOLE 40 MG TABLET PO SCH ×2 (07:07→16:48)
[2021-12-12] MEDS: calcitrioL 0.25 MCG CAPSULE PO SCH (08:57)
[2021-12-12] MEDS: MULTIVITAMIN TABLET PO SCH (08:57)
[2021-12-12] MEDS: diltiaZEM CD 180 MG CAPSULE PO SCH (08:57)
[2021-12-12] MEDS: APIXABAN 5 MG TABLET PO SCH (08:57)
[2021-12-12] MEDS: TAMSULOSIN 0.4 MG CAPSULE PO SCH (08:57)
[2021-12-12] MEDS: FLUTICASONE NASAL SPRAY NAS SCH (08:58)
[2021-12-12] MEDS: DIVALPROEX ER 250 MG TABLET PO SCH ×2 (08:58→20:10)
[2021-12-12] MEDS: INSULIN ASPART 300 UNIT/3 ML PEN SUBQ SCH ×4 (08:58→20:11)
[2021-12-12] MEDS: ENTACAPONE 200 MG TABLET PO SCH ×2 (08:59→20:11)
[2021-12-12] MEDS: levETIRAcetam INJ 500 MG in SODIUM CHLORIDE 0.9% 100ML 100 ML IV SCH (09:14)
[2021-12-12] MEDS: ACETAMINOPHEN 325 MG TABLET PO PRN ×2 (11:54→20:10)
--- NOTE | 2021-12-12 14:11 | PROVIDER PROGRESS NOTE ---
Assessment/Plan - Problem List (1) Seizure Assessment/Plan: He had several witnessed generalized seizure at admission, then another generalized seizure after admission. A CT head was repeated then and it showed no acute findings/no changes. Keppra was started after ED provider spoke to neurologist Dr Ba. Ativan prn was also ordered for acute seizure, which he needed. Yesterday I called [place] and spoke to the neurologist Dr. Damian. He recommended adding Depakote, loading dose (2000 mg IV) then starting 1000 mg p.o. twice daily. He also recommended decreasing the Keppra to 500 mg daily or 250 twice daily, down from 500 b.i.d., which is excessive for a patient with renal failure. Yesterday morning, he reported an aura of "bright lights" in his left visual field but not followed by tonic-clonic seizure. No aura repported today Will have him evaluated by PT due to Hx of recent "frequent falls", since these may have been seizures. Continue with these new seizure meds combination, but doses may need to be decreased if they are causing the increased confusion noted today. (2) Fall at home Conclusion/Plan: Two days before this ER visit, he had a ground-level fall and the fall probably led to the seizures, according to neurology impression. We then learned that he has had multiple frequent falls and needed inpatient hospitalization elsewhere and then SNF for PT rehab. He was evaluated today by PT due to Hx of recent "frequent falls", and PT reports a very poor gait, shuffling, slowched over. PT recommends discharge to a SNF for PT rehab. Also, he cannot return to living alone (given the Parkinsonian gait, frequent falls and now with confusion). He will need LTAC placement. This was communivcated to and the [facility] RN, Suzanne today. (3) Confusion Conclusion/Plan: Today he is more confused than yesterday: he is slower to answer, did not understand what caused this hospitalization after being explained (written) several times, and after being courtesy visited by palliative care provider BERNICE Santos, he could also not make decisions about where to go for SNF. This increased confusion may caused by slightly worsened uremia today, as his BUN verena today and he does have stage IV CKD. And per Palliative Care records, he has cancelled his last 2 visits to his Kidney specialist. Or the confusion may be from his underlying Parkinson's. Most likely, the increased confusion is from the use of Ativan and start of 2 new antiseizure meds, which may be oversedating him. Will request a Palliative Care consult to officially follow along with us since they know his history of mentation in the past. I spoke to Nehal Santos NP today and informed her. (4) CKD (chronic kidney disease) stage 4, GFR 15-29 ml/min Conclusion/Plan: He has hx of CKD stage IV, he had an AV fistula placed in the right arm. His creatinine was 4.6>> 4.0>> 3.8>> 4 today. Pt received 1 liter of NS in ER. No further iv fluids continue now. Will try to avoid nephrotoxins. Monitor BMP daily Plan is to reach out to his [employer] to determine when his dialysis is to be started, but there is no mention of who his Chief [employer] is in records. In fact, per Palliative Care records, he cancelled his last 2 visits to his Kidney specialist. (5) Diabetes mellitus Conclusion/Plan: He has DM type 2, and his A1c is 6.4 indicating very good control. He was (supposedly) taking Lantus 8U qhs at home (however I question this, given his confusion). Here he was started on 5U qhs, but with that dose he had a low glu in a.m. of 72. We decreased the Lantus dose down to 2 units sq qpm. Possibly it could be stop ped. Will continue sliding scale insulin coverage, glucose checks, and hypoglycemia protocol. (6) Atrial fibrillation Conclusion/Plan: His HR is controlled, We resumed pt's home meds including his blood thinner as was OKd by Neurology. But will decrease the Eliquis dose from 5 bid to 2.5 bid, given his risk of falls. Telemetry to continue (7) Parkinson disease Conclusion/Plan: He has hx of Parkinson disease and is on his home meds. Today PT consult revealed that he has very poor gait, walks slouched over, shuffling gait, walks forward on his feet but is also impulsive and tries to get up from toilet on his own very quickly. He needs PT rehab at SNF. I suspect he also needs long-term care, and is not a candidate to go back and live at home alone with this amount of confusion and ambulation problems and history of frequent falls.. This was discussed with social work and with printer machine today. [facility] (8) [place] He is nearly completely deaf. He does not have his hearing aids. Communication is by writing to him but he can verbalize back (9) Hypertension Conclusion/Plan: Stable. We resumed his home meds and ordered holding parameters. Continue vital sign monitoring. (10) Chronic LBP The patient requested yesterday that Tylenol and codeine # 3 be ordered. It was ordered. Today he is more confused. Will decrease the dose and the frequency of Tylenol and codeine #3 to just qhs prn. Will also order a lidocaine patch topically (11) GERD (gastroesophageal reflux disease) Conclusion/Plan: He has no complaints, we continued with Protonix as he took at home. - Current Meds Current Meds: Current Medications Generic Name Dose Route Start Last Admin Trade Name Jay PRN Reason Stop Dose Admin Acetaminophen 650 mg 12/09/21 15:00 12/12/21 11:54 Acetaminophen 325 Mg Tablet PO 650 mg Q4HR PRN Administration Pain 1 to 4, or Fever Acetaminophen/Codeine Phosphate 0.5 tab 12/11/21 18:42 12/11/21 21:08 Acetaminophen/Codeine 300 Mg/30 Mg Tablet PO 0.5 tab Q6HR PRN Administration Severe Pain Atorvastatin Calcium 40 mg 12/10/21 21:00 12/11/21 20:06 Atorvastatin 40 Mg Tablet PO 40 mg QPM PEREZ Administration Calcitriol 0.5 mcg 12/11/21 09:00 12/12/21 08:57 Calcitriol 0.25 Mcg Capsule PO 0.5 mcg DAILY PEREZ Administration Carbidopa/Levodopa 2 tab 12/10/21 15:12/12/21 14:03 Carbidopa/Levodopa 25 Mg/250 Mg Tablet PO 2 tab 0200,0800,1400,2000 PEREZ Administration Diltiazem HCl 180 mg 12/11/21 09:00 12/12/21 08:57 Diltiazem Cd 180 Mg Capsule PO 180 mg DAILY PERZE Administration Divalproex Sodium 1,000 mg 12/10/21 21:00 12/12/21 08:58 Divalproex Er 250 Mg Tablet PO 1,000 mg BID PEREZ Administration Entacapone 200 mg 12/10/21 21:00 12/12/21 08:59 Entacapone 200 Mg Tablet PO Not Given BID PEREZ Fluticasone Propionate 1 sprays 12/11/21 09:00 12/12/21 08:58 Fluticasone Nasal Esmond TAWANDA 2 spr DAILY PEREZ Administration Levetiracetam 500 mg/ Sodium 105 mls @ 400 mls/hr 12/11/21 09:00 12/12/21 09:49 Chloride IV Infused DAILY PEREZ Infusion Insulin Aspart 1 - 5 unit 12/09/21 17:00 12/12/21 11:31 Insulin Aspart 300 Unit/3 Ml Pen SUBQ Not Given 0800,1200,1700,2100 [facility] Protocol Insulin Glargine 2 unit 12/11/21 21:00 12/11/21 21:06 Insulin Glargine 300 Unit/3 Ml Pen SUBQ 2 unit QPM PEREZ Administration Lorazepam 1 mg 12/09/21 16:25 12/10/21 08:37 Lorazepam 2 Mg/Ml Vial IVP 1 mg Q2H PRN Administration Seizure Multivitamins 1 tab 12/11/21 08:00 12/12/21 08:57 Multivitamin Tablet PO 1 tab DAILYWM PEREZ Administration Pantoprazole Sodium 40 mg 12/10/21 16:00 12/12/21 07:07 Pantoprazole 40 Mg Tablet PO 40 mg BIDAC PEREZ Administration Sodium Chloride 10 ml 12/09/21 15:00 12/12/21 01:13 Sodium Chloride Flush 0.9% 10 Ml Syringe IVP 10 ml PRN PRN Administration NEEDED PER PROVIDER ORDERS Sodium Chloride 10 ml 12/09/21 17:00 12/12/21 08:59 Sodium Chloride Flush 0.9% 10 Ml Syringe IVP 10 ml 0100,0900,1700 PEREZ Administration Tamsulosin HCl 0.4 mg 12/11/21 09:00 12/12/21 08:57 Tamsulosin 0.4 Mg Capsule PO 0.4 mg DAILY PEREZ Administration - Lab Result Fish Bone Diagrams: 12/13/21 04:32 12/13/21 04:32 - Additional Planning My Orders: My Active Orders 12/11/21 18:42 Acetaminophen/Cod 300/30 [Tylenol #3] 0.5 tab PO Q6HR PRN 12/11/21 21:00 Insulin Glargine [Lantus Solostar] 2 unit SUBQ QPM 12/12/21 Consult [Palliative Care Consult] [CONS] Routine 12/12/21 21:00 Apixaban [Eliquis] 2.5 mg PO BID Subjective - Subjective Patient Reports: Other (Requesting hamburger.) Nursing Reports: Other (Is confused, did not understand what got him admitted when seen by Palliative Care provider, and could not make decision when being choiced for a SNF.) Objective Vital Signs: Vital Signs - 24 hr 12/11/21 12/11/21 12/11/21 16:00 20:36 23:50 Temperature 36.4 C L 36.4 C L 36.4 C L Heart Rate [ 65 73 61 Brachial] Heart Rate [ Sitting] Heart Rate [ Standing] Heart Rate [ Supine] Respiratory 16 16 18 Rate Blood Pressure 133/66 H 145/70 H 140/78 H [Left Brachial artery] Blood Pressure [Sitting] Blood Pressure [Standing] Blood Pressure [Supine] O2 Saturation 99 100 12/12/21 12/12/21 12/12/21 03:32 07:15 08:45 Temperature 36.6 C 36.5 C Heart Rate [ 75 63 70 Brachial] Heart Rate [ Sitting] Heart Rate [ Standing] Heart Rate [ Supine] Respiratory 16 16 Rate Blood Pressure 144/55 H 135/70 H 150/74 H [Left Brachial artery] Blood Pressure [Sitting] Blood Pressure [Standing] Blood Pressure [Supine] O2 Saturation 100 100 12/12/21 12/12/21 12/12/21 10:55 11:25 11:48 Temperature Heart Rate [ 107 H 80 Brachial] Heart Rate [ 83 Sitting] Heart Rate [ 117 H Standing] Heart Rate [ 69 Supine] Respiratory 18 Rate Blood Pressure 130/67 [Left Brachial artery] Blood Pressure 128/74 [Sitting] Blood Pressure 130/67 [Standing] Blood Pressure 148/74 H [Supine] O2 Saturation 100 Oxygen O2 Source Room air I&O (Last 24 Hrs): Intake and Output Totals x24h 12/10/21 12/11/21 12/12/21 23:59 23:59 23:59 Intake Total 3139.63 1265 881 Output Total 1000 Balance 2139.63 1265 881 General: Alert, No acute distress, Other (Thin elderly male, lethargic and bradykinetic) HEENT: Atraumatic, Mucous membr. moist/pink Neck: Supple Neuro: Alert, Disoriented, Non Focal, Other (Bradykinetic, falls asleep sitting up in reclioner chair. Very [place].) Cardiovascular: No murmurs Respiratory: No respiratory distress Abdomen: Normal bowel sounds, Soft Extremities: No clubbing, No edema, No tenderness/swelling - Results Results: Laboratory Results WBC 6.2 x10^3/uL (4.8-10.8) 12/12/21 04: RBC 3.00 10^6/uL (4.70-6.10) L 12/12/21 04: Hgb 8.8 g/dL (14.0-18.0) L 12/12/21 04: Hct 27.5 % (42.0-52.0) L 12/12/21 04: MCV 91.7 fL (80.0-94.0) 12/12/21 04: MCH 29.3 pg (27.0-31.0) 12/12/21 04: MCHC 32.0 g/dL (32.0-36.0) 12/12/21 04: RDW 13.6 % (12.0-15.0) 12/12/21 04: Plt Count 204 10^3/uL (130-450) 12/12/21 04:29 MPV 12.4 fL (7.4-11.4) H 12/12/21 04: Neut # (Auto) 4.6 10^3/uL (1.5-6.6) 12/12/21 04:29 Lymph # (Auto) 0.9 10^3/uL (1.5-3.5) L 12/12/21 04:29 [place] # (Auto) 0.5 10^3/uL (0.0-1.0) 12/12/21 04: Eos # (Auto) 0.1 10^3/uL (0.0-0.7) 12/12/21 04: Baso # (Auto) 0.0 10^3/uL (0.0-0.1) 12/12/21 04: Absolute Nucleated RBC 0.00 x10^3/uL 12/12/21 04:29 Nucleated RBC % 0.0 /100WBC 12/12/21 04:29 APTT 28.1 secs (24.9-33.3) 12/10/21 09:50 Sodium 134 mmol/L (135-145) L 12/12/21 04:29 Potassium 4.1 mmol/L (3.5-5.0) 12/12/21 04:29 Chloride 107 mmol/L (101-111) 12/12/21 04:29 Carbon Dioxide 19 mmol/L (21-32) L 12/12/21 04:29 Anion Gap 8.0 (6-13) 12/12/21 04:29 BUN 44 mg/dL (6-20) H 12/12/21 04:29 Creatinine 4.0 mg/dL (0.6-1.2) H 12/12/21 04:29 Estimated GFR (MDRD) 15 (>89) L 12/12/21 04:29 Glucose 166 mg/dL (70-100) H 12/12/21 04:29 Estimat Average Glucose 137 mg/dL (70-100) H 12/10/21 04:35 Hemoglobin A1c % 6.4 % (4.27-6.07) H 12/10/21 04:35 Calcium 8.3 mg/dL (8.5-10.3) L 12/12/21 04:29 Phosphorus 5.1 mg/dL (2.5-4.6) H 12/09/21 12:56 Magnesium 1.7 mg/dL (1.7-2.8) 12/10/21 04:35 Total Bilirubin 1.8 mg/dL (0.2-1.0) H 12/09/21 12:56 AST 13 IU/L (10-42) 12/09/21 12:56 ALT < 10 IU/L (10-60) L 12/09/21 12:56 Alkaline Phosphatase 60 IU/L (42-121) 12/09/21 12:56 Total Creatine Kinase 51 IU/L (22-269) 12/09/21 12:56 Troponin I High Sens 33.5 ng/L (2.3-19.7) H* 12/09/21 19:01 Total Protein 7.4 g/dL (6.7-8.2) 12/09/21 12:56 Albumin 4.1 g/dL (3.2-5.5) 12/09/21 12:56 Globulin 3.3 g/dL (2.1-4.2) 12/09/21 12:56 Albumin/Globulin Ratio 1.2 (1.0-2.2) 12/09/21 12:56 Lipase 35 U/L (22-51) 12/09/21 12:56 Urine Color YELLOW 12/09/21 13:59 Urine Clarity HAZY (CLEAR) 12/09/21 13:59 Urine pH 5.5 PH (5.0-7.5) 12/09/21 13:59 Ur Specific [place] >=1.030 (1.002-1.030) H 12/09/21 13:59 Urine Protein >=300 mg/dL (NEGATIVE) H 12/09/21 13:59 Urine Glucose (UA) NEGATIVE mg/dL (NEGATIVE) 12/09/21 13:59 Urine Ketones NEGATIVE mg/dL (NEGATIVE) 12/09/21 13:59 Urine Occult Blood MODERATE (NEGATIVE) H 12/09/21 13:59 Urine Nitrite NEGATIVE (NEGATIVE) 12/09/21 13:59 Urine Bilirubin NEGATIVE (NEGATIVE) 12/09/21 13:59 Urine Urobilinogen 0.2 (NORMAL) E.U./dL (NORMAL) 12/09/21 13:59 Ur Leukocyte Esterase NEGATIVE (NEGATIVE) 12/09/21 13:59 Urine RBC 11-25 /HPF (0-5) H 12/09/21 13:59 Urine WBC 6-10 /HPF (0-3) H 12/09/21 13:59 Ur Squamous Epith Cells RARE Squamous (<= Few) 12/09/21 13:59 Urine Bacteria Moderate /HPF (None Seen) H 12/09/21 13:59 Urine Casts 3-5 Granular Casts /LPF 12/09/21 13:59 Ur Microscopic Review INDICATED 12/09/21 13:59 Urine Culture Comments NOT INDICATED 12/09/21 13:59 Nasal Adenovirus (PCR) NOT DETECTED 12/09/21 13:59 Nasal B. parapertussis DNA (PCR) NOT DETECTED 12/09/21 13:59 Nasal Coronavir 229E PCR NOT DETECTED 12/09/21 13:59 Nasal Coronavir HKU1 PCR NOT DETECTED 12/09/21 13:59 Nasal Coronavir NL63 PCR NOT DETECTED 12/09/21 13:59 Nasal Coronavir OC43 PCR NOT DETECTED 12/09/21 13:59 Nasal Enterovir/Rhinovir PCR NOT DETECTED 12/09/21 13:59 Nasal Influenza B PCR NOT DETECTED 12/09/21 13:59 Nasal Influenza A PCR NOT DETECTED 12/09/21 13:59 Nasal Parainfluen 1 PCR NOT DETECTED 12/09/21 13:59 Nasal Parainfluen 2 PCR NOT DETECTED 12/09/21 13:59 Nasal Parainfluen 3 PCR NOT DETECTED 12/09/21 13:59 Nasal Parainfluen 4 PCR NOT DETECTED 12/09/21 13:59 Nasal RSV (PCR) NOT DETECTED 12/09/21 13:59 Nasal B.pertussis DNA PCR NOT DETECTED 12/09/21 13:59 Nasal C.pneumoniae (PCR) NOT DETECTED 12/09/21 13:59 [place] Human Metapneumo PCR NOT DETECTED 12/09/21 13:59 Nasal M.pneumoniae (PCR) NOT DETECTED 12/09/21 13:59 Nasal SARS-CoV-2 (PCR) NOT DETECTED 12/09/21 13:59 Urine Opiates Screen NEGATIVE (NEGATIVE) 12/09/21 13:59 Ur Oxycodone Screen NEGATIVE (NEGATIVE) 12/09/21 13:59 Urine Methadone Screen NEGATIVE (NEGATIVE) 12/09/21 13:59 Ur Propoxyphene Screen NEGATIVE (NEGATIVE) 12/09/21 13:59 Ur Barbiturates Screen NEGATIVE (NEGATIVE) 12/09/21 13:59 Ur Tricyclics Screen NEGATIVE (NEGATIVE) 12/09/21 13:59 Ur Phencyclidine Scrn NEGATIVE (NEGATIVE) 12/09/21 13:59 Ur Amphetamine Screen NEGATIVE (NEGATIVE) 12/09/21 13:59 U Methamphetamines Scrn NEGATIVE (NEGATIVE) 12/09/21 13:59 U Benzodiazepines Scrn NEGATIVE (NEGATIVE) 12/09/21 13:59 Urine Cocaine Screen NEGATIVE (NEGATIVE) 12/09/21 13:59 U Cannabinoids Screen NEGATIVE (NEGATIVE) 12/09/21 13:59 - Procedures Procedures: Procedures VENOUS CATHETERIZATION [facility] (04/17/14)
[2021-12-12] MEDS: ATORVASTATIN 40 MG TABLET PO SCH (20:10)
[2021-12-12] MEDS: APIXABAN 2.5 MG TABLET PO SCH (20:10)
[2021-12-12] MEDS: INSULIN GLARGINE 300 UNIT/3 ML PEN SUBQ SCH (20:12)
[2021-12-13] MEDS: ACETAMINOPHEN 325 MG TABLET PO PRN ×2 (01:32→19:46)
[2021-12-13] MEDS: CARBIDOPA/LEVODOPA 25 MG/250 MG TABLET PO SCH ×4 (01:33→19:46)
[2021-12-13] MEDS: SODIUM CHLORIDE FLUSH 0.9% 10 ML SYRINGE IVP SCH ×4 (01:34→23:51)
[2021-12-13 05:06] LABS: BASOPHILS % (AUTO) 0.5 %; EOSINOPHILS # (AUTO) 0.2 10^3/uL (0.0-0.7); EOSINOPHILS % (AUTO) 2.7 %; HCT - HEMATOCRIT 27.2 % (42.0-52.0); HGB - HEMOGLOBIN 8.8 g/dL (14.0-18.0); LYMPHOCYTES # (AUTO) 1.3 10^3/uL (1.5-3.5); LYMPHOCYTES % (AUTO) 21.2 %; MEAN CORPUSCULAR HEMOGLOBIN 29.6 pg (27.0-31.0); MEAN CORPUSCULAR HGB CONC 32.4 g/dL (32.0-36.0); MEAN CORPUSCULAR VOLUME 91.6 fL (80.0-94.0); MEAN PLATELET VOLUME 12.4 fL (7.4-11.4); MONOCYTES # (AUTO) 0.6 10^3/uL (0.0-1.0); MONOCYTES % (AUTO) 9.7 %; NEUTROPHILS # (AUTO) 3.9 10^3/uL (1.5-6.6); NEUTROPHILS % (AUTO) 65.6 %; PLT - PLATELET COUNT 186 10^3/uL (130-450); RED BLOOD COUNT 2.97 10^6/uL (4.70-6.10); RED CELL DISTRIBUTION WIDTH 13.7 % (12.0-15.0)
[2021-12-13 05:19] LABS: CALCIUM 8.3 mg/dL (8.5-10.3); CREATININE 3.8 mg/dL (0.6-1.2); POTASSIUM 4.1 mmol/L (3.5-5.0)
[2021-12-13] MEDS: PANTOPRAZOLE 40 MG TABLET PO SCH ×2 (06:17→16:20)
[2021-12-13] MEDS: TAMSULOSIN 0.4 MG CAPSULE PO SCH (09:20)
[2021-12-13] MEDS: diltiaZEM CD 180 MG CAPSULE PO SCH (09:20)
[2021-12-13] MEDS: MULTIVITAMIN TABLET PO SCH (09:20)
[2021-12-13] MEDS: APIXABAN 2.5 MG TABLET PO SCH ×2 (09:20→20:44)
[2021-12-13] MEDS: INSULIN ASPART 300 UNIT/3 ML PEN SUBQ SCH ×4 (09:20→20:46)
[2021-12-13] MEDS: ENTACAPONE 200 MG TABLET PO SCH ×2 (09:21→21:09)
[2021-12-13] MEDS: levETIRAcetam INJ 500 MG in SODIUM CHLORIDE 0.9% 100ML 100 ML IV SCH (09:21)
[2021-12-13] MEDS: calcitrioL 0.25 MCG CAPSULE PO SCH (09:21)
[2021-12-13] MEDS: DIVALPROEX ER 250 MG TABLET PO SCH ×2 (09:21→20:44)
[2021-12-13] MEDS: FLUTICASONE NASAL SPRAY NAS SCH (09:22)
[2021-12-13] MEDS ORDERED: MAGNESIUM SULFATE 2 GRAM 2 GM/50 ML BAG IV ONE (10:19)
[2021-12-13] MEDS: SODIUM CHLORIDE FLUSH 0.9% 10 ML SYRINGE IVP PRN (10:38)
--- NOTE | 2021-12-13 13:14 | PROVIDER PROGRESS NOTE ---
Assessment/Plan - Problem List (1) Seizure Assessment/Plan: 12/13 pt has no more seizure. Per neurologist's recommendations, pt is on Keppra 500 daily and Depakote 500mg bid. reduce Depakote dosage from 1000mg bid to 500mg bid since pt present significant confused, pt has hx of CKD stage 4, continue seizure precaution (2) Fall at home Conclusion/Plan: pt had multiple frequent falls at home. pt had PT/OT evaluation and treatment. pt is living alone, recommended pt be d/c to SNF for rehab, pt may need LTAC placement as well. consult with social media coordinator for replacement. fall precaution at hospital (3) Confusion significantly improved. pt also ate 100% his diet. reduce Depakote dosage, continue neuro check (4) CKD (chronic kidney disease) stage 4, GFR 15-29 ml/min Conclusion/Plan: creatinine 3.8, slight improved. continue hydration and lab monitor, followup with pt escort as out-pt setting and palliative care. (5) Diabetes mellitus Conclusion/Plan: good control and his A1c is 6.4 continue slide scale, glucose check, hypoglycemia protocol (6) Atrial fibrillation Conclusion/Plan: HR is controlled, We resumed pt's home meds including his blood thinner as was OKd by Neurology. But reduced the Eliquis dose from 5 bid to 2.5 bid, given his risk of falls, and renal dosage Telemetry to continue (7) Parkinson disease Conclusion/Plan: stable, continue home meds (8) [place] He is nearly completely deaf. Communication is by writing to him but he can verbalize back, continue support to pt. (9) Hypertension Conclusion/Plan: Stable. We resumed his home meds and ordered holding parameters. Continue vital sign monitoring. (10) Chronic LBP continue pain control Will also order a lidocaine patch topically (11) GERD (gastroesophageal reflux disease) we continued with Protonix as he took at home. (12)unsuspended ventricular tachycardia pt was reported on last night to have unsuspended VT. pt is asymptomatic, home dynamic stable, check the electrolytic Mag is 1.4, replaced. continue tele, vital and lab monitor. pt's troponin was slight elevated at 25 but repeated it was flat. pt denies chest pain. (4) Atrial fibrillation Qualifiers: Atrial fibrillation type: longstanding persistent Qualified Code(s): I48.11 - Longstanding persistent atrial fibrillation - Current Meds Current Meds: Current Medications Generic Name Dose Route Start Last Admin Trade Name Freq PRN Reason Stop Dose Admin Acetaminophen 650 mg 12/09/21 15:00 12/13/21 01:32 Acetaminophen 325 Mg Tablet PO 650 mg Q4HR PRN Administration Pain 1 to 4, or Fever Apixaban 2.5 mg 12/12/21 21:00 12/13/21 09:20 Apixaban 2.5 Mg Tablet PO 2.5 mg BID PEREZ Administration Atorvastatin Calcium 40 mg 12/10/21 21:00 12/12/21 20:10 Atorvastatin 40 Mg Tablet PO 40 mg QPM PEREZ Administration Calcitriol 0.5 mcg 12/11/21 09:00 12/13/21 09:21 Calcitriol 0.25 Mcg Capsule PO 0.5 mcg DAILY PEREZ Administration Carbidopa/Levodopa 2 tab 12/10/21 15:00 12/13/21 09:28 Carbidopa/Levodopa 25 Mg/250 Mg Tablet PO 2 tab 0200,0800,1400,2000 PEREZ Administration Diltiazem HCl 180 mg 12/11/21 09:00 12/13/21 09:20 Diltiazem Cd 180 Mg Capsule PO 180 mg DAILY PEREZ Administration Divalproex Sodium 500 mg 12/13/21 09:00 12/13/21 09:21 Divalproex Er 250 Mg Tablet PO 500 mg BID PEREZ Administration Entacapone 200 mg 12/10/21 21:00 12/13/21 09:21 Entacapone 200 Mg Tablet PO Not Given BID PEREZ Fluticasone Propionate 1 sprays 12/11/21 09:00 12/13/21 09:22 Fluticasone Nasal [place] TAWANDA 2 spr DAILY PEREZ Administration Insulin Aspart 1 - 5 unit 12/09/21 17:00 12/13/21 12:03 Insulin Aspart 300 Unit/3 Ml Pen SUBQ Not Given 0800,1200,1700,2100 [facility] Protocol Insulin Glargine 2 unit 12/11/21 21:00 12/12/21 20:12 Insulin Glargine 300 Unit/3 Ml Pen SUBQ 2 unit QPM PEREZ Administration Lorazepam 1 mg 12/09/21 16:25 12/10/21 08:37 Lorazepam 2 Mg/Ml Vial IVP 1 mg Q2H PRN Administration Seizure Multivitamins 1 tab 12/11/21 08:00 12/13/21 09:20 Multivitamin Tablet PO 1 tab DAILYWM PEREZ Administration Pantoprazole Sodium 40 mg 12/10/21 16:00 12/13/21 06:17 Pantoprazole 40 Mg Tablet PO 40 mg BIDAC PEREZ Administration Sodium Chloride 10 ml 12/09/21 15:00 12/13/21 10:38 Sodium Chloride Flush 0.9% 10 Ml Syringe IVP 10 ml PRN PRN Administration NEEDED PER PROVIDER ORDERS Sodium Chloride 10 ml 12/09/21 17:00 12/13/21 09:21 Sodium Chloride Flush 0.9% 10 Ml Syringe IVP 10 ml 0100,0900,1700 PEREZ Administration Tamsulosin HCl 0.4 mg 12/11/21 09:00 12/13/21 09:20 Tamsulosin 0.4 Mg Capsule PO 0.4 mg DAILY PERZE Administration - Lab Result Fish Bone Diagrams: 12/13/21 04:32 12/13/21 04:32 - Additional Planning My Orders: My Active Orders 12/13/21 09:00 Divalproex ER [Depakote ER] 500 mg PO BID 12/14/21 05:00 BMP - BASIC METABOLIC PANEL [CHEM] DAILYLAB CBC - COMP BLD CT W/AUTO DIFF [HEME] DAILYLAB MAGNESIUM [CHEM] DAILYLAB 12/14/21 08:00 Magnesium Oxide [Mag Ox] 400 mg PO DAILYWM 12/15/21 05:00 MAGNESIUM [CHEM] DAILYLAB Subjective - Subjective Patient Reports: Resting Comfortably Objective Vital Signs: Vital Signs - 24 hr 12/12/21 12/12/21 12/13/21 15:35 20:00 01:20 Temperature 36.5 C 36.4 C L 36.3 C L Heart Rate [ 70 67 Brachial] Heart Rate [ 66 Monitoring electrodes] Respiratory 16 16 20 Rate Blood Pressure 145/76 H 148/67 H 142/83 H [Left Brachial artery] O2 Saturation 99 100 100 12/13/21 12/13/21 12/13/21 04:52 07:09 09:15 Temperature 36.3 C L 36.4 C L Heart Rate [ 60 Brachial] Heart Rate [ 69 78 Monitoring electrodes] Respiratory 18 18 Rate Blood Pressure 122/66 131/62 H 135/69 H [Left Brachial artery] O2 Saturation 99 100 Oxygen O2 Source Room air I&O (Last 24 Hrs): Intake and Output Totals x24h 12/11/21 12/12/21 12/13/21 23:59 23:59 23:59 Intake Total 1265 1351 525 Balance 1265 1351 525 General: Alert, Cooperative, No acute distress HEENT: Atraumatic Neck: Supple Lymphatic: no adenopathy Neuro: Alert, Non Focal Cardiovascular: Regular rate, Normal S1, Normal S2 Respiratory: Chest non-tender, No respiratory distress Abdomen: Normal bowel sounds, Soft Extremities: Normal pulses - Results Results: Laboratory Results WBC 6.0 x10^3/uL (4.8-10.8) 12/13/21 04:32 RBC 2.97 10^6/uL (4.70-6.10) L 12/13/21 04:32 Hgb 8.8 g/dL (14.0-18.0) L 12/13/21 04:32 Hct 27.2 % (42.0-52.0) L 12/13/21 04:32 MCV 91.6 fL (80.0-94.0) 12/13/21 04:32 MCH 29.6 pg (27.0-31.0) 12/13/21 04:32 MCHC 32.4 g/dL (32.0-36.0) 12/13/21 04:32 RDW 13.7 % (12.0-15.0) 12/13/21 04:32 Plt Count 186 10^3/uL (130-450) 12/13/21 04:32 MPV 12.4 fL (7.4-11.4) H 12/13/21 04:32 Neut # (Auto) 3.9 10^3/uL (1.5-6.6) 12/13/21 04:32 Lymph # (Auto) 1.3 10^3/uL (1.5-3.5) L 12/13/21 04:32 [place] # (Auto) 0.6 10^3/uL (0.0-1.0) 12/13/21 04:32 Eos # (Auto) 0.2 10^3/uL (0.0-0.7) 12/13/21 04:32 Baso # (Auto) 0.0 10^3/uL (0.0-0.1) 12/13/21 04:32 Absolute Nucleated RBC 0.00 x10^3/uL 12/13/21 04:32 Nucleated RBC % 0.0 /100WBC 12/13/21 04:32 APTT 28.1 secs (24.9-33.3) 12/10/21 09:50 Sodium 137 mmol/L (135-145) 12/13/21 04:32 Potassium 4.1 mmol/L (3.5-5.0) 12/13/21 04:32 Chloride 109 mmol/L (101-111) 12/13/21 04:32 Carbon Dioxide 18 mmol/L (21-32) L 12/13/21 04:32 Anion Gap 10.0 (6-13) 12/13/21 04:32 BUN 45 mg/dL (6-20) H 12/13/21 04:32 Creatinine 3.8 mg/dL (0.6-1.2) H 12/13/21 04:32 Estimated GFR (MDRD) 16 (>89) L 12/13/21 04:32 Glucose 99 mg/dL (70-100) 12/13/21 04:32 Estimat Average Glucose 137 mg/dL (70-100) H 12/10/21 04:35 Hemoglobin A1c % 6.4 % (4.27-6.07) H 12/10/21 04:35 Calcium 8.3 mg/dL (8.5-10.3) L 12/13/21 04:32 Phosphorus 5.1 mg/dL (2.5-4.6) H 12/09/21 12:56 Magnesium 1.4 mg/dL (1.7-2.8) L 12/13/21 04:32 Total Bilirubin 1.8 mg/dL (0.2-1.0) H 12/09/21 12:56 AST 13 IU/L (10-42) 12/09/21 12:56 ALT < 10 IU/L (10-60) L 12/09/21 12:56 Alkaline Phosphatase 60 IU/L (42-121) 12/09/21 12:56 Total Creatine Kinase 51 IU/L (22-269) 12/09/21 12:56 Troponin I High Sens 33.5 ng/L (2.3-19.7) H* 12/09/21 19:01 Total Protein 7.4 g/dL (6.7-8.2) 12/09/21 12:56 Albumin 4.1 g/dL (3.2-5.5) 12/09/21 12:56 Globulin 3.3 g/dL (2.1-4.2) 12/09/21 12:56 Albumin/Globulin Ratio 1.2 (1.0-2.2) 12/09/21 12:56 Lipase 35 U/L (22-51) 12/09/21 12:56 Urine Color YELLOW 12/09/21 13:59 Urine Clarity HAZY (CLEAR) 12/09/21 13:59 Urine pH 5.5 PH (5.0-7.5) 12/09/21 13:59 Ur Specific [place] >=1.030 (1.002-1.030) H 12/09/21 13:59 Urine Protein >=300 mg/dL (NEGATIVE) H 12/09/21 13:59 Urine Glucose (UA) NEGATIVE mg/dL (NEGATIVE) 12/09/21 13:59 Urine Ketones NEGATIVE mg/dL (NEGATIVE) 12/09/21 13:59 Urine Occult Blood MODERATE (NEGATIVE) H 12/09/21 13:59 Urine Nitrite NEGATIVE (NEGATIVE) 12/09/21 13:59 Urine Bilirubin NEGATIVE (NEGATIVE) 12/09/21 13:59 Urine Urobilinogen 0.2 (NORMAL) E.U./dL (NORMAL) 12/09/21 13:59 Ur Leukocyte Esterase NEGATIVE (NEGATIVE) 12/09/21 13:59 Urine RBC 11-25 /HPF (0-5) H 12/09/21 13:59 Urine WBC 6-10 /HPF (0-3) H 12/09/21 13:59 Ur Squamous Epith Cells RARE Squamous (<= Few) 12/09/21 13:59 Urine Bacteria Moderate /HPF (None Seen) H 12/09/21 13:59 Urine Casts 3-5 Granular Casts /LPF 12/09/21 13:59 Ur Microscopic Review INDICATED 12/09/21 13:59 Urine Culture Comments NOT INDICATED 12/09/21 13:59 Nasal Adenovirus (PCR) NOT DETECTED 12/09/21 13:59 Nasal B. parapertussis DNA (PCR) NOT DETECTED 12/09/21 13:59 Nasal Coronavir 229E PCR NOT DETECTED 12/09/21 13:59 Nasal Coronavir HKU1 PCR NOT DETECTED 12/09/21 13:59 Nasal Coronavir NL63 PCR NOT DETECTED 12/09/21 13:59 Nasal Coronavir OC43 PCR NOT DETECTED 12/09/21 13:59 Nasal Enterovir/Rhinovir PCR NOT DETECTED 12/09/21 13:59 Nasal Influenza B PCR NOT DETECTED 12/09/21 13:59 Nasal Influenza A PCR NOT DETECTED 12/09/21 13:59 Nasal Parainfluen 1 PCR NOT DETECTED 12/09/21 13:59 Nasal Parainfluen 2 PCR NOT DETECTED 12/09/21 13:59 Nasal Parainfluen 3 PCR NOT DETECTED 12/09/21 13:59 Nasal Parainfluen 4 PCR NOT DETECTED 12/09/21 13:59 Nasal RSV (PCR) NOT DETECTED 12/09/21 13:59 Nasal B.pertussis DNA PCR NOT DETECTED 12/09/21 13:59 Nasal C.pneumoniae (PCR) NOT DETECTED 12/09/21 13:59 [place] Human Metapneumo PCR NOT DETECTED 12/09/21 13:59 Nasal M.pneumoniae (PCR) NOT DETECTED 12/09/21 13:59 Nasal SARS-CoV-2 (PCR) NOT DETECTED 12/09/21 13:59 Urine Opiates Screen NEGATIVE (NEGATIVE) 12/09/21 13:59 Ur Oxycodone Screen NEGATIVE (NEGATIVE) 12/09/21 13:59 Urine Methadone Screen NEGATIVE (NEGATIVE) 12/09/21 13:59 Ur Propoxyphene Screen NEGATIVE (NEGATIVE) 12/09/21 13:59 Ur Barbiturates Screen NEGATIVE (NEGATIVE) 12/09/21 13:59 Ur Tricyclics Screen NEGATIVE (NEGATIVE) 12/09/21 13:59 Ur Phencyclidine Scrn NEGATIVE (NEGATIVE) 12/09/21 13:59 Ur Amphetamine Screen NEGATIVE (NEGATIVE) 12/09/21 13:59 U Methamphetamines Scrn NEGATIVE (NEGATIVE) 12/09/21 13:59 U Benzodiazepines Scrn NEGATIVE (NEGATIVE) 12/09/21 13:59 Urine Cocaine Screen NEGATIVE (NEGATIVE) 12/09/21 13:59 U Cannabinoids Screen NEGATIVE (NEGATIVE) 12/09/21 13:59 - Procedures Procedures: Procedures VENOUS CATHETERIZATION NEC (04/17/14) ABX Reporting Has patient been on IV antibiotics over the past 48 hours?: No Current Medications - Current Medications Current Medications: Active Medications Acetaminophen (Acetaminophen 325 Mg Tablet) 650 mg PO Q4HR PRN PRN Reason: Pain 1 to 4, or Fever Last Admin: 12/13/21 01:32 Dose: 650 mg Acetaminophen/Codeine Phosphate (Acetaminophen/Codeine 300 Mg/30 Mg Tablet) 0.5 tab PO QPM PRN PRN Reason: Severe Pain Albuterol (Albuterol Neb 2.5 Mg/3 Ml) 2.5 mg INH RTQ4H PRN PRN Reason: Wheezing Apixaban (Apixaban 2.5 Mg Tablet) 2.5 mg PO BID [facility] Last Admin: 12/13/21 09:20 Dose: 2.5 mg Atorvastatin Calcium (Atorvastatin 40 Mg Tablet) 40 mg PO QPM [facility] Last Admin: 12/12/21 20:10 Dose: 40 mg Calcitriol (Calcitriol 0.25 Mcg Capsule) 0.5 mcg PO DAILY [facility] Last Admin: 12/13/21 09:21 Dose: 0.5 mcg Carbidopa/Levodopa (Carbidopa/Levodopa 25 Mg/250 Mg Tablet) 2 tab PO 0200,0800,1400,2000 [facility] Last Admin: 12/13/21 09:28 Dose: 2 tab Diltiazem HCl (Diltiazem Cd 180 Mg Capsule) 180 mg PO DAILY [facility] Last Admin: 12/13/21 09:20 Dose: 180 mg Divalproex Sodium (Divalproex Er 250 Mg Tablet) 500 mg PO BID [facility] Last Admin: 12/13/21 09:21 Dose: 500 mg Entacapone (Entacapone 200 Mg Tablet) 200 mg PO BID [facility] Last Admin: 12/13/21 09:21 Dose: Not Given Fluticasone Propionate (Fluticasone Nasal [place]) 1 sprays TAWANDA DAILY [facility] Last Admin: 12/13/21 09:22 Dose: 2 spr Insulin Aspart (Insulin Aspart 300 Unit/3 Ml Pen) 1 - 5 unit SUBQ 0800,1200,1700,2100 [facility]; Protocol Last Admin: 12/13/21 12:03 Dose: Not Given Insulin Glargine (Insulin Glargine 300 Unit/3 Ml Pen) 2 unit SUBQ QPM [facility] Last Admin: 12/12/21 20:12 Dose: 2 unit Levetiracetam (Levetiracetam 250 Mg Tablet) 500 mg PO DAILY [facility] Lidocaine (Lidocaine Patch 5%) 1 patch TOP DAILY PRN PRN Reason: PAIN Lorazepam (Lorazepam 2 Mg/Ml Vial) 1 mg IVP Q2H PRN PRN Reason: Seizure Last Admin: 12/10/21 08:37 Dose: 1 mg Magnesium Oxide (Magnesium Oxide 400 Mg Tablet) 400 mg PO DAILYWM [facility] Metoprolol Tartrate (Metoprolol 5 Mg/5 Ml Vial) 5 mg IVP Q6H PRN PRN Reason: Tachycardia Multivitamins (Multivitamin Tablet) 1 tab PO DAILYWM [facility] Last Admin: 12/13/21 09:20 Dose: 1 tab Ondansetron HCl (Ondansetron 4 Mg/2 Ml Vial) 4 mg IVP Q6HR PRN PRN Reason: Nausea / Vomiting Pantoprazole Sodium (Pantoprazole 40 Mg Tablet) 40 mg PO BIDAC [facility] Last Admin: 12/13/21 06:17 Dose: 40 mg Senna (Senna 8.6 Mg Tablet) 8.6 mg PO DAILY PRN PRN Reason: Constipation Sodium Chloride (Sodium Chloride Flush 0.9% 10 Ml Syringe) 10 ml IVP PRN PRN PRN Reason: NEEDED PER PROVIDER ORDERS Last Admin: 12/13/21 10:38 Dose: 10 ml Sodium Chloride (Sodium Chloride Flush 0.9% 10 Ml Syringe) 10 ml IVP 0100,0900,1700 [facility] Last Admin: 12/13/21 09:21 Dose: 10 ml Tamsulosin HCl (Tamsulosin 0.4 Mg Capsule) 0.4 mg PO DAILY [facility] Last Admin: 12/13/21 09:20 Dose: 0.4 mg Omeprazole 20 mg PO BID 10/02/13 Atorvastatin Calcium 40 mg PO QPM 01/24/16 Carbidopa/Levodopa [Carbidopa-Levodopa 25-250 Tab] 2 each PO QID 01/05/20 Rivaroxaban [Xarelto] 15 mg PO QDDINNER 07/23/20 Entacapone [Comtan] 200 mg PO BID 04/02/21 Multivit-Min/Folic/Vit K/Lycop [One Daily Men's 50 Plus D3 Tab] 1 each PO DAILY 04/02/21 calcitrioL [Rocaltrol] 0.5 mcg PO DAILY 04/02/21 Insulin Glargine [Lantus Solostar] 8 unit SQ HS 04/23/21 Senna [Senokot] 8.6 mg PO DAILY PRN 04/23/21 Albuterol Sulfate [Proair Hfa Inhaler] 2 puffs INH Q4HR PRN 11/18/21 Fluticasone [Flonase] 2 spray TAWANDA DAILY 11/18/21 diltiaZEM CD [Cardizem Cd] 180 mg PO DAILY 12/09/21
--- NOTE | 2021-12-13 14:57 | CONSULTATION NOTE ---
Palliative Care Follow Up - Referral Referring Provider: Dr. Maria E Cantu Time of Visit: [phone] Referral setting: Hospitalized patient Referral Reason: Confusion/Seizure - Information Sources Records reviewed: Previous records reviewed History/Review of Systems obtained from: Patient, Nursing (RICH Arizmendi; DIschage RICH Palacios) Exam limitations: Clinical condition (Significant RED DEVIL and communication is via written form) - History of Present Illness Update Brief HPI Update: This is a 71-year-old gentleman who is seen inpatient in follow-up due to recent seizure activity, confusion, and Parkinson's disease. He will was requested that palliative care follow along as has been seen once prior before by palliat annie care service. The patient's who is being seen by primary palliative care TAXONOMIST when noted to have evidence of seizure activity and EMS was called. He then had a another generalized seizure after admission. A CT of the head did not show any acute findings and neurology was consulted recommending that Depakote be added to the patient's regimen and decreasing his Keppra dosage given his underlying renal failure. He was previously reporting aura of "bright lights." Able to communicate with the patient today who denies Continuation of this. Speaking to nursing staff today, the patient has been consuming all of his meals and getting up out of bed. However, he is more sedated than he had been in the prior 2 days. He is able to stay alert if engaged continually otherwise he is prior to fall back to sleep. Nursing reports that an echocardiogram was ordered and results are pending. Past Medical History: Patient has a history of CKD stage IV with AV fistula, diabetes mellitus type 2, Parkinson's disease, atrial fibrillation, extremely hard of hearing, hy pertension, GERD, chronic lower back pain, PTSD, history of prostate cancer. Social History - Living Situation Living arrangement: At home Living Situation: Alone Support System: Patient lives alone and has a history of being an introvert. He has a neighbor and friend who checks in on him as well as Meals on Wheels. He was a [place] vet and is very involved with affairs. 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 He was recently hospitalized at [facility] and then discharged to an SNF from which that he left AMA. Medications/Allergies - Medications Active Medication List: Active Medications Acetaminophen (Acetaminophen 325 Mg Tablet) 650 mg PO Q4HR PRN PRN Reason: Pain 1 to 4, or Fever Last Admin: 12/13/21 01:32 Dose: 650 mg Acetaminophen/Codeine Phosphate (Acetaminophen/Codeine 300 Mg/30 Mg Tablet) 0.5 tab PO QPM PRN PRN Reason: Severe Pain Albuterol (Albuterol Neb 2.5 Mg/3 Ml) 2.5 mg INH RTQ4H PRN PRN Reason: Wheezing Apixaban (Apixaban 2.5 Mg Tablet) 2.5 mg PO BID [facility] Last Admin: 12/13/21 09:20 Dose: 2.5 mg Atorvastatin Calcium (Atorvastatin 40 Mg Tablet) 40 mg PO QPM [facility] Last Admin: 12/12/21 20:10 Dose: 40 mg Calcitriol (Calcitriol 0.25 Mcg Capsule) 0.5 mcg PO DAILY [facility] Last Admin: 12/13/21 09:21 Dose: 0.5 mcg Carbidopa/Levodopa (Carbidopa/Levodopa 25 Mg/250 Mg Tablet) 2 tab PO 0200,0800,1400,2000 [facility] Last Admin: 12/13/21 14:03 Dose: 2 tab Diltiazem HCl (Diltiazem Cd 180 Mg Capsule) 180 mg PO DAILY [facility] Last Admin: 12/13/21 09:20 Dose: 180 mg Divalproex Sodium (Divalproex Er 250 Mg Tablet) 500 mg PO BID [facility] Last Admin: 12/13/21 09:21 Dose: 500 mg Entacapone (Entacapone 200 Mg Tablet) 200 mg PO BID [facility] Last Admin: 12/13/21 09:21 Dose: Not Given Fluticasone Propionate (Fluticasone Nasal [place]) 1 sprays TAWANDA DAILY [facility] Last Admin: 12/13/21 09:22 Dose: 2 spr Insulin Aspart (Insulin Aspart 300 Unit/3 Ml Pen) 1 - 5 unit SUBQ 0800,1200,1700,2100 [facility]; Protocol Last Admin: 12/13/21 12:03 Dose: Not Given Insulin Glargine (Insulin Glargine 300 Unit/3 Ml Pen) 2 unit SUBQ QPM [facility] Last Admin: 12/12/21 20:12 Dose: 2 unit Levetiracetam (Levetiracetam 250 Mg Tablet) 500 mg PO DAILY [facility] Lidocaine (Lidocaine Patch 5%) 1 patch TOP DAILY PRN PRN Reason: PAIN Lorazepam (Lorazepam 2 Mg/Ml Vial) 1 mg IVP Q2H PRN PRN Reason: Seizure Last Admin: 12/10/21 08:37 Dose: 1 mg Magnesium Oxide (Magnesium Oxide 400 Mg Tablet) [facility] [place] Metoprolol Tartrate (Metoprolol 5 Mg/5 Ml Vial) 5 mg IVP Q6H PRN PRN Reason: Tachycardia Multivitamins (Multivitamin Tablet) 1 tab PO DAILYWM [facility] Last Admin: 12/13/21 09:20 Dose: 1 tab Ondansetron HCl (Ondansetron 4 Mg/2 Ml Vial) 4 mg IVP Q6HR PRN PRN Reason: Nausea / Vomiting Pantoprazole Sodium (Pantoprazole 40 Mg Tablet) 40 mg PO BIDAC [facility] Last Admin: 12/13/21 06:17 Dose: 40 mg Senna (Senna 8.6 Mg Tablet) 8.6 mg PO DAILY PRN PRN Reason: Constipation Sodium Chloride (Sodium Chloride Flush 0.9% 10 Ml Syringe) 10 ml IVP PRN PRN PRN Reason: NEEDED PER PROVIDER ORDERS Last Admin: 12/13/21 10:38 Dose: 10 ml Sodium Chloride (Sodium Chloride Flush 0.9% 10 Ml Syringe) 10 ml IVP 0100,0900,1700 [facility] Last Admin: 12/13/21 09:21 Dose: 10 ml Tamsulosin HCl (Tamsulosin 0.4 Mg Capsule) 0.4 mg PO DAILY [facility] Last Admin: 12/13/21 09:20 Dose: 0.4 mg Omeprazole 20 mg PO BID 10/02/13 Atorvastatin Calcium 40 mg PO QPM 01/24/16 Carbidopa/Levodopa [Carbidopa-Levodopa 25-250 Tab] 2 each PO QID 01/05/20 Rivaroxaban [Xarelto] 15 mg PO QDDINNER 07/23/20 Entacapone [Comtan] 200 mg PO BID 04/02/21 Multivit-Min/Folic/Vit K/Lycop [One Daily Men's 50 Plus D3 Tab] 1 each PO DAILY 04/02/21 calcitrioL [Rocaltrol] 0.5 mcg PO DAILY 04/02/21 Insulin Glargine [Lantus Solostar] 8 unit SQ HS 04/23/21 Senna [Senokot] 8.6 mg PO DAILY PRN 04/23/21 Albuterol Sulfate [Proair Hfa Inhaler] 2 puffs INH Q4HR PRN 11/18/21 Fluticasone [Flonase] 2 spray TAWANDA DAILY 11/18/21 diltiaZEM CD [Cardizem Cd] 180 mg PO DAILY 12/09/21 - Allergies Allergies/Adverse Reactions: Allergies Allergy/AdvReac Type Severity Reaction Status Date / Time allopurinol Allergy Unknown Verified 12/07/21 20:42 glipizide Allergy Unknown Verified 12/07/21 20:42 metformin Allergy Unknown Verified 12/07/21 20:42 Review of Systems - Constitutional Constitutional: reports: Fatigue, Weight loss. denies: Poor appetite - Eyes Eyes: reports: Vision loss, Corrective lenses - Ears, Nose & Throat Ears, Nose & Throat: reports: Hearing loss, Hearing aids (work poorly) - Cardiovascular Cardiovascular: denies: Edema - Respiratory Respiratory: denies: Cough - Gastrointestinal Gastrointestinal: reports: Good appetite (per RN report). denies: Constipation, Diarrhea, Nausea - Musculoskeletal Musculoskeletal: reports: Back pain, Stiffness, Joint pain (bilat knee), Assistive devices (uses walker) - Integumentary Integumentary: reports: Dryness - Neurological Neurological: reports: General weakness, Memory problems (increased confusion from baseline but more oriented today then yesterday) - Endocrine Endocrine: reports: Diabetes type 2 - All Other Systems All Other Systems: reports: Other (difficult with hearing and ROS supported by nursing staff.) Physical Exam - Vital Signs Vital Signs: Vital Signs x48h Temp Pulse Pulse Resp BP Pulse Ox 12/13/21 14:20 114/60 12/13/21 13:00 36.6 C 72 19 98 12/13/21 09:15 78 135/69 H 12/13/21 07:09 36.4 C L 60 18 131/62 H 100 - Physical Exam General Appearance: positive: No acute distress, Alert, Other (Sleeping and needed to arouse with sternal rub and once awake and engaged was able to participate with written dialgoue) Eyes Bilateral: positive: Other (+corrective lenses) ENT: positive: No signs of dehydration, Other (+hearing aids in place, significantly hard of hearing and communication via written form) Neck: positive: Trachea midline Cardiovascular: positive: Irregular, Other (+right upper arm AV fistula +thrill and bruit) Respiratory: positive: No respiratory distress, Breath sounds nml Abdomen: positive: Non-tender, Soft, Nml bowel sounds Skin: positive: Dryness Extremities: positive: No pedal edema, Other (extremeties cool to touch; slow to move gait shuffled) Neurologic/Psychiatric: positive: Disoriented to time, Weakness, Flat affect, Other (If not engaged will drift back off to sleep. He would re=read written questions several times and pause before answering with delayed response.) Palliative Care - POLST Patient has POLST: Yes POLST Status: DNR, Selective Treatment - Palliative Care Discussion: Patient unfortunately has had 2 generalized seizures and now presents with confusion that is not at his baseline. He also unfortunately, significantly hearing impaired and the most efficient way to communicate him is through written word and even then he is taking a long length of time to cause, gather his thoughts, and then answer simple question. Unclear if his sedation and underlying confusion is due to the antiepileptic medication versus underlying CKD stage IV. Patient has awareness of where he is but does not appreciate the cause of his hospitalization despite being told multiple times on multiple occasions he was admitted due to seizure activity. Given his searching for communication and words and his underlying disorientation of events at the present time is not able to make complex medical decisions and would benefit from support from his friend/DPOA and protection consultant to follow-up with DPOA regarding discharge plan to detention facility. Results - Lab Results Fish Bones: 12/13/21 04:32 12/13/21 04:32 Lab and Imaging Results: Lab Results x24hrs 12/13/21 12/13/21 12/13/21 Range/Units 04:32 04:32 04:32 WBC 6.0 (4.8-10.8) x10^3/uL RBC 2.97 L (4.70-6.10) 10^6/uL Hgb 8.8 L (14.0-18.0) g/dL Hct 27.2 L (42.0-52.0) % MCV 91.6 (80.0-94.0) fL MCH 29.6 (27.0-31.0) pg MCHC 32.4 (32.0-36.0) g/dL RDW 13.7 (12.0-15.0) % Plt Count 186 (130-450) 10^3/uL MPV 12.4 H (7.4-11.4) fL Neut # (Auto) 3.9 (1.5-6.6) 10^3/uL Lymph # (Auto) 1.3 L (1.5-3.5) 10^3/uL Haines # (Auto) 0.6 (0.0-1.0) 10^3/uL Eos # (Auto) 0.2 (0.0-0.7) 10^3/uL Baso # (Auto) 0.0 (0.0-0.1) 10^3/uL Absolute Nucleated RBC 0.00 x10^3/uL Nucleated RBC % 0.0 /100WBC Sodium 137 (135-145) mmol/L Potassium 4.1 (3.5-5.0) mmol/L Chloride 109 (101-111) mmol/L Carbon Dioxide 18 L (21-32) mmol/L Anion Gap 10.0 (6-13) BUN 45 H (6-20) mg/dL Creatinine 3.8 H (0.6-1.2) mg/dL Estimated GFR (MDRD) 16 L (>89) Glucose 99 (70-100) mg/dL Calcium 8.3 L (8.5-10.3) mg/dL Magnesium 1.4 L (1.7-2.8) mg/dL Impression and Recommendations - Palliative Care Impression: This is a 71-year-old gentleman who is a [place] vet who unfortunately sustained to episodes of generalized seizures now with increased confusion from baseline who prior to admission has been having decline in function and increasing symptom burden. Present goal is for the patient to be discharged to a detention facility. Recommendations/Counseling Done: 1. Confusion. Patient has had some improvement in his orientation level since yesterday however, is more sedated unclear if this is related to his antiepileptic medication in the setting of CKD stage IV. He continues to require support and recognizing why he was admitted to the hospital due to seiz ure activity. Given his underlying confusion patient is presently not capable of making advanced medical decisions at this time and would benefit from the support of his friend/DPOA with protection consultant Suzanne VILLANUEVA to follow-up with regarding. 2. History of falls. Patient has a history of falls in recommendations are for detention facility for rehabilitation and oversight. Ideally, requesting a [place] contracted SNF for the patient to then have a case sealer from the [place] for oversight moving forward. pressing machine tender and social work to continue to follow. 3. Seizures. Present prior to admission and status post admission. Presently Depakote 5 Keppra being managed by hospitalist. Seizure precautions. 4. Hard of hearing. This impacts the patient's ability to communicate. He does have his hearing aids in place but these are not effective at all. Communication is best performed by writing to him so he can then verbalize back. 5. Advanced care planning. Patient has a DNR in place with selective interventions. Previously has expressed a focus on quality of life and remain independent as long as possible. Presently, given the patient's underlying confusion that is likely multifactorial would benefit from support for advanced medical decisions from friends/DPOA. Total time spent 35 minutes with greater than 50% of the spent in counseling and coordination of care with the patient, nursing, technology director, examination of patient, communication with patient via written form, supportive listening, and anticipatory guidance. Disclaimer: The chart note was formulated using voice recognition technology and unfortunately sound alike errors may occur.
--- NOTE | 2021-12-13 18:09 | PROVIDER PROGRESS NOTE ---
Hospitalist Cross-cover Note - Cross-Cover Note Cross-Cover Note: I was asked to do an Echo on this patient who had monomorphic VTach. As a Board-Certified Claim Clerk, credentialed here to do and interpret Echos, I performed a limited bedside 2D Echo. The Echo showed: -Mild LA and RA enlargement. -Normal LV size, mild LVH, normal LV contractilit, LVEF 55%. -Septal flattening seen, consistent with RV overload. -RV moderately dilated with mildly depressed RV function. -There is mitral annulus and aortic valve calcification, but good mitral and aortic and tricuspid valve mobility. The pulmonic valve is probably normal, it was less well seen. -There is no pericardial effusion. -No Doppler or color Doppler exam was done. (Report given to provider Trevor Senior NP).
[2021-12-13] MEDS: ATORVASTATIN 40 MG TABLET PO SCH (20:44)
[2021-12-13] MEDS: INSULIN GLARGINE 300 UNIT/3 ML PEN SUBQ SCH (21:09)
[2021-12-14] MEDS: ACETAMINOPHEN 325 MG TABLET PO PRN ×2 (00:02→14:31)
[2021-12-14] MEDS: CARBIDOPA/LEVODOPA 25 MG/250 MG TABLET PO SCH ×4 (02:00→22:34)
[2021-12-14] MEDS: PANTOPRAZOLE 40 MG TABLET PO SCH ×2 (05:17→15:50)
[2021-12-14 05:40] LABS: BASOPHILS % (AUTO) 0.3 %; EOSINOPHILS # (AUTO) 0.1 10^3/uL (0.0-0.7); EOSINOPHILS % (AUTO) 2.4 %; HCT - HEMATOCRIT 28.6 % (42.0-52.0); LYMPHOCYTES # (AUTO) 1.1 10^3/uL (1.5-3.5); LYMPHOCYTES % (AUTO) 18.3 %; MEAN CORPUSCULAR HEMOGLOBIN 28.8 pg (27.0-31.0); MEAN CORPUSCULAR HGB CONC 31.5 g/dL (32.0-36.0); MEAN CORPUSCULAR VOLUME 91.7 fL (80.0-94.0); MONOCYTES # (AUTO) 0.5 10^3/uL (0.0-1.0); MONOCYTES % (AUTO) 9.2 %; NEUTROPHILS # (AUTO) 4.1 10^3/uL (1.5-6.6); NEUTROPHILS % (AUTO) 69.6 %; PLT - PLATELET COUNT 200 10^3/uL (130-450); RED BLOOD COUNT 3.12 10^6/uL (4.70-6.10); RED CELL DISTRIBUTION WIDTH 13.8 % (12.0-15.0); WHITE BLOOD COUNT 5.9 x10^3/uL (4.8-10.8)
[2021-12-14 05:51] LABS: CALCIUM 8.6 mg/dL (8.5-10.3); CREATININE 3.8 mg/dL (0.6-1.2); MAGNESIUM 1.7 mg/dL (1.7-2.8); POTASSIUM 4.2 mmol/L (3.5-5.0)
[2021-12-14] MEDS: INSULIN ASPART 300 UNIT/3 ML PEN SUBQ SCH ×4 (07:26→22:35)
[2021-12-14] MEDS ORDERED: MAGNESIUM OXIDE 400 MG TABLET PO SCH (08:00)
[2021-12-14] MEDS ORDERED: SENNA 8.6 MG TABLET PO SCH (09:00)
[2021-12-14] MEDS: diltiaZEM CD 180 MG CAPSULE PO SCH ×2 (09:29→09:40)
[2021-12-14] MEDS: APIXABAN 2.5 MG TABLET PO SCH ×2 (09:29→22:34)
[2021-12-14] MEDS: calcitrioL 0.25 MCG CAPSULE PO SCH (09:29)
[2021-12-14] MEDS: levETIRAcetam 250 MG TABLET PO SCH (09:29)
[2021-12-14] MEDS: TAMSULOSIN 0.4 MG CAPSULE PO SCH (09:29)
[2021-12-14] MEDS: DIVALPROEX ER 250 MG TABLET PO SCH ×2 (09:29→22:34)
[2021-12-14] MEDS: MULTIVITAMIN TABLET PO SCH (09:30)
[2021-12-14] MEDS: FLUTICASONE NASAL SPRAY NAS SCH (09:30)
[2021-12-14] MEDS: SODIUM CHLORIDE FLUSH 0.9% 10 ML SYRINGE IVP SCH ×2 (09:30→15:50)
[2021-12-14] MEDS: ENTACAPONE 200 MG TABLET PO SCH ×2 (09:31→22:35)
--- NOTE | 2021-12-14 11:17 | PROVIDER PROGRESS NOTE ---
Assessment/Plan - Problem List (1) Seizure Assessment/Plan: 12/14 pt is stable, no more seizure. pt is alert and oriented. it seems keppra 500mg daily and Depakote 500 bid are sufficient to control her seizure, and did not cause him confusion. we will continue Keppra and Depakote, continue seizure precaution. 12/13 pt has no more seizure. Per neurologist's recommendations, pt is on Keppra 500 daily and Depakote 500mg bid. reduce Depakote dosage from 1000mg bid to 500mg bid since pt present significant confused, pt has hx of CKD stage 4, continue seizure precaution (2) Falls at home Conclusion/Plan: pt had multiple frequent falls at home. pt had PT/OT evaluation and treatment. pt is living alone, recommended pt be d/c to SNF for rehab, pt may need LTAC pl acement as well. consult with social studies department chair for replacement. fall precaution at hospital (3) Confusion significantly improved. pt also ate 100% his diet. reduce Depakote dosage, continue neuro check (4) CKD (chronic kidney disease) stage 4, GFR 15-29 ml/min Conclusion/Plan: creatinine 3.8, slight improved. continue hydration and lab monitor, followup with mechanical assembler as out-pt setting and palliative care. (5) Diabetes mellitus Conclusion/Plan: good control and his A1c is 6.4 continue slide scale, glucose check, hypoglycemia protocol (6) Atrial fibrillation Conclusion/Plan: HR is controlled, We resumed pt's home meds including his blood thinner as was OK from Neurology. But reduced the Eliquis dose from 5 bid to 2.5 bid, given his risk of falls, and renal dosage Telemetry to continue (7) Parkinson disease Conclusion/Plan: stable, continue home meds (8) [place] He is nearly completely deaf. Communication is by writing to him but he can verbalize back, continue support to pt. (9) Hypertension Conclusion/Plan: Stable. We resumed his home meds and ordered holding parameters. Continue vital sign monitoring. (10) Chronic LBP continue pain control Will also order a lidocaine patch topically (11) GERD (gastroesophageal reflux disease) we continued with Protonix as he took at home. (12)unsuspended ventricular tachycardia 12/14 resolved, no more unsuspended VT. pt's mag is at normal arrange now. continue tele and vital monitor pt was reported on last night to have unsuspended VT. pt is asymptomatic, homedynamic stable, check the electrolytic Mag is 1.4, replaced. continue tele, vital and lab monitor. pt's troponin was slight elevated at 25 but repeated it was flat. pt denies chest pain. (4) Atrial fibrillation Qualifiers: Atrial fibrillation type: longstanding persistent Qualified Code(s): I48.11 - Longstanding persistent atrial fibrillation - Current Meds Current Meds: Current Medications Generic Name Dose Route Start Last Admin Trade Name Freq PRN Reason Stop Dose Admin Acetaminophen 650 mg 12/09/21 15:00 12/14/21 00:02 Acetaminophen 325 Mg Tablet PO 650 mg Q4HR PRN Administration Pain 1 to 4, or Fever Apixaban 2.5 mg 12/12/21 21:00 12/14/21 09:29 Apixaban 2.5 Mg Tablet PO 2.5 mg BID PEREZ Administration Atorvastatin Calcium 40 mg 12/10/21 21:00 12/13/21 20:44 Atorvastatin 40 Mg Tablet PO 40 mg QPM PEREZ Administration Calcitriol 0.5 mcg 12/11/21 09:00 12/14/21 09:29 Calcitriol 0.25 Mcg Capsule PO 0.5 mcg DAILY PEREZ Administration Carbidopa/Levodopa 2 tab 12/10/21 15:00 12/14/21 09:30 Carbidopa/Levodopa 25 Mg/250 Mg Tablet PO 2 tab 0200,0800,1400,2000 PEREZ Administration Diltiazem HCl 180 mg 12/11/21 09:00 12/14/21 09:40 Diltiazem Cd 180 Mg Capsule PO 180 mg DAILY PEREZ Administration Divalproex Sodium 500 mg 12/13/21 09:00 12/14/21 09:29 Divalproex Er 250 Mg Tablet PO 500 mg BID PEREZ Administration Entacapone 200 mg 12/10/21 21:00 12/14/21 09:31 Entacapone 200 Mg Tablet PO Not Given BID PEREZ Fluticasone Propionate 1 sprays 12/11/21 09:00 12/14/21 09:30 Fluticasone Nasal [place] TAWANDA 1 spr DAILY PEREZ Administration Insulin Aspart 1 - 5 unit 12/09/21 17:00 12/14/21 07:26 Insulin Aspart 300 Unit/3 Ml Pen SUBQ Not Given 0800,1200,1700,2100 [facility] Protocol Insulin Glargine 2 unit 12/11/21 21:00 12/13/21 21:09 Insulin Glargine 300 Unit/3 Ml Pen SUBQ 2 unit QPM PEREZ Administration Levetiracetam 500 mg 12/14/21 09:00 12/14/21 09:29 Levetiracetam 250 Mg Tablet PO 500 mg DAILY PEREZ Administration Lorazepam 1 mg 12/09/21 16:25 12/10/21 08:37 Lorazepam 2 Mg/Ml Vial IVP 1 mg Q2H PRN Administration Seizure Magnesium Oxide 400 mg 12/14/21 08:00 12/14/21 09:29 Magnesium Oxide 400 Mg Tablet PO 400 mg DAILYWM PEREZ Administration Multivitamins 1 tab 12/11/21 08:00 12/14/21 09:30 Multivitamin Tablet PO 1 tab DAILYWM PEREZ Administration Pantoprazole Sodium 40 mg 12/10/21 16:00 12/14/21 05:17 Pantoprazole 40 Mg Tablet PO 40 mg BIDAC PEREZ Administration Senna 17.2 - 25.8 mg 12/14/21 09:00 12/14/21 09:29 Senna 8.6 Mg Tablet PO 12/15/21 03:01 17.2 mg Q6H PEREZ Administration Sodium Chloride 10 ml 12/09/21 15:00 12/13/21 10:38 Sodium Chloride Flush 0.9% 10 Ml Syringe IVP 10 ml PRN PRN Administration NEEDED PER PROVIDER ORDERS Sodium Chloride 10 ml 12/09/21 17:00 12/14/21 09:30 Sodium Chloride Flush 0.9% 10 Ml Syringe IVP 10 ml 0100,0900,1700 PEREZ Administration Tamsulosin HCl 0.4 mg 12/11/21 09:00 12/14/21 09:29 Tamsulosin 0.4 Mg Capsule PO 0.4 mg DAILY PEREZ Administration - Lab Result Fish Bone Diagrams: 12/14/21 05:16 12/14/21 05:16 - Additional Planning My Orders: My Active Orders 12/13/21 13:14 Neuro Check [RC] QSHIFT 12/14/21 Evaluate and Treat OT [OT] Routine 12/14/21 08:00 Magnesium Oxide [Mag Ox] 400 mg PO DAILYWM 12/14/21 09:00 Senna [Senokot] 17.2 - 25.8 mg PO Q6H 12/15/21 05:00 MAGNESIUM [CHEM] DAILYLAB Subjective - Subjective Patient Reports: Resting Comfortably Objective Vital Signs: Vital Signs - 24 hr 12/13/21 12/13/21 12/13/21 13:00 14:20 15:36 Temperature 36.6 C 36.7 C Heart Rate [ 72 52 L Brachial] Respiratory 19 20 Rate Blood Pressure 114/60 112/53 L [Left Brachial artery] O2 Saturation 98 98 12/13/21 12/14/21 12/14/21 20:46 00:04 05:21 Temperature 36.3 C L 36.5 C 36.3 C L Heart Rate [ 70 69 60 Brachial] Respiratory 16 18 18 Rate Blood Pressure 123/72 153/79 H 125/63 [Left Brachial artery] O2 Saturation 100 100 100 12/14/21 12/14/21 07:21 09:39 Temperature 36.6 C Heart Rate [ 69 Brachial] Respiratory 16 Rate Blood Pressure 103/52 L 139/74 H [Left Brachial artery] O2 Saturation 99 Oxygen O2 Source Room air I&O (Last 24 Hrs): Intake and Output Totals x24h 12/12/21 12/13/21 12/14/21 23:59 23:59 23:59 Intake Total 1351 1475 420 Balance 1351 1475 420 General: Alert, Oriented x3, Cooperative, No acute distress HEENT: Atraumatic Neck: Supple Lymphatic: no adenopathy Neuro: Alert, Non Focal, Oriented Times 3 Cardiovascular: Regular rate, Normal S1, Normal S2 Respiratory: Chest non-tender, No respiratory distress Abdomen: Normal bowel sounds, Soft Extremities: Normal pulses Comments/Notes: pt is very hard hearing. Communication with pt is by writing. - Results Results: Laboratory Results WBC 5.9 x10^3/uL (4.8-10.8) 12/14/21 05:16 RBC 3.12 10^6/uL (4.70-6.10) L 12/14/21 05:16 Hgb 9.0 g/dL (14.0-18.0) L 12/14/21 05:16 Hct 28.6 % (42.0-52.0) L 12/14/21 05:16 MCV 91.7 fL (80.0-94.0) 12/14/21 05:16 MCH 28.8 pg (27.0-31.0) 12/14/21 05:16 MCHC 31.5 g/dL (32.0-36.0) L 12/14/21 05:16 RDW 13.8 % (12.0-15.0) 12/14/21 05:16 Plt Count 200 10^3/uL (130-450) 12/14/21 05:16 MPV 13.0 fL (7.4-11.4) H 12/14/21 05:16 Neut # (Auto) 4.1 10^3/uL (1.5-6.6) 12/14/21 05:16 Lymph # (Auto) 1.1 10^3/uL (1.5-3.5) L 12/14/21 05:16 Christian # (Auto) 0.5 10^3/uL (0.0-1.0) 12/14/21 05:16 Eos # (Auto) 0.1 10^3/uL (0.0-0.7) 12/14/21 05:16 Baso # (Auto) 0.0 10^3/uL (0.0-0.1) 12/14/21 05:16 Absolute Nucleated RBC 0.00 x10^3/uL 12/14/21 05:16 Nucleated RBC % 0.0 /100WBC 12/14/21 05:16 APTT 28.1 secs (24.9-33.3) 12/10/21 09:50 Sodium 134 mmol/L (135-145) L 12/14/21 05:16 Potassium 4.2 mmol/L (3.5-5.0) 12/14/21 05:16 Chloride 106 mmol/L (101-111) 12/14/21 05:16 Carbon Dioxide 19 mmol/L (21-32) L 12/14/21 05:16 Anion Gap 9.0 (6-13) 12/14/21 05:16 BUN 45 mg/dL (6-20) H 12/14/21 05:16 Creatinine 3.8 mg/dL (0.6-1.2) H 12/14/21 05:16 Estimated GFR (MDRD) 16 (>89) L 12/14/21 05:16 Glucose 131 mg/dL (70-100) H 12/14/21 05:16 Estimat Average Glucose 137 mg/dL (70-100) H 12/10/21 04:35 Hemoglobin A1c % 6.4 % (4.27-6.07) H 12/10/21 04:35 Calcium 8.6 mg/dL (8.5-10.3) 12/14/21 05:16 Phosphorus 5.1 mg/dL (2.5-4.6) H 12/09/21 12:56 Magnesium 1.7 mg/dL (1.7-2.8) 12/14/21 05:16 Total Bilirubin 1.8 mg/dL (0.2-1.0) H 12/09/21 12:56 AST 13 IU/L (10-42) 12/09/21 12:56 ALT < 10 IU/L (10-60) L 12/09/21 12:56 Alkaline Phosphatase 60 IU/L (42-121) 12/09/21 12:56 Total Creatine Kinase 51 IU/L (22-269) 12/09/21 12:56 Troponin I High Sens 33.5 ng/L (2.3-19.7) H* 12/09/21 19:01 Total Protein 7.4 g/dL (6.7-8.2) 12/09/21 12:56 Albumin 4.1 g/dL (3.2-5.5) 12/09/21 12:56 Globulin 3.3 g/dL (2.1-4.2) 12/09/21 12:56 Albumin/Globulin Ratio 1.2 (1.0-2.2) 12/09/21 12:56 Lipase 35 U/L (22-51) 12/09/21 12:56 Urine Color YELLOW 12/09/21 13:59 Urine Clarity HAZY (CLEAR) 12/09/21 13:59 Urine pH 5.5 PH (5.0-7.5) 12/09/21 13:59 Ur Specific [place] >=1.030 (1.002-1.030) H 12/09/21 13:59 Urine Protein >=300 mg/dL (NEGATIVE) H 12/09/21 13:59 Urine Glucose (UA) NEGATIVE mg/dL (NEGATIVE) 12/09/21 13:59 Urine Ketones NEGATIVE mg/dL (NEGATIVE) 12/09/21 13:59 Urine Occult Blood MODERATE (NEGATIVE) H 12/09/21 13:59 Urine Nitrite NEGATIVE (NEGATIVE) 12/09/21 13:59 Urine Bilirubin NEGATIVE (NEGATIVE) 12/09/21 13:59 Urine Urobilinogen 0.2 (NORMAL) E.U./dL (NORMAL) 12/09/21 13:59 Ur Leukocyte Esterase NEGATIVE (NEGATIVE) 12/09/21 13:59 Urine RBC 11-25 /HPF (0-5) H 12/09/21 13:59 Urine WBC 6-10 /HPF (0-3) H 12/09/21 13:59 Ur Squamous Epith Cells RARE Squamous (<= Few) 12/09/21 13:59 Urine Bacteria Moderate /HPF (None Seen) H 12/09/21 13:59 Urine Casts 3-5 Granular Casts /LPF 12/09/21 13:59 Ur Microscopic Review INDICATED 12/09/21 13:59 Urine Culture Comments NOT INDICATED 12/09/21 13:59 Nasal Adenovirus (PCR) NOT DETECTED 12/09/21 13:59 Nasal B. parapertussis DNA (PCR) NOT DETECTED 12/09/21 13:59 Nasal Coronavir 229E PCR NOT DETECTED 12/09/21 13:59 Nasal Coronavir HKU1 PCR NOT DETECTED 12/09/21 13:59 Nasal Coronavir NL63 PCR NOT DETECTED 12/09/21 13:59 Nasal Coronavir OC43 PCR NOT DETECTED 12/09/21 13:59 Nasal Enterovir/Rhinovir PCR NOT DETECTED 12/09/21 13:59 Nasal Influenza B PCR NOT DETECTED 12/09/21 13:59 Nasal Influenza A PCR NOT DETECTED 12/09/21 13:59 Nasal Parainfluen 1 PCR NOT DETECTED 12/09/21 13:59 Nasal Parainfluen 2 PCR NOT DETECTED 12/09/21 13:59 Nasal Parainfluen 3 PCR NOT DETECTED 12/09/21 13:59 Nasal Parainfluen 4 PCR NOT DETECTED 12/09/21 13:59 Nasal RSV (PCR) NOT DETECTED 12/09/21 13:59 Nasal B.pertussis DNA PCR NOT DETECTED 12/09/21 13:59 Nasal C.pneumoniae (PCR) NOT DETECTED 12/09/21 13:59 [place] Human Metapneumo PCR NOT DETECTED 12/09/21 13:59 Nasal M.pneumoniae (PCR) NOT DETECTED 12/09/21 13:59 Nasal SARS-CoV-2 (PCR) NOT DETECTED 12/09/21 13:59 Urine Opiates Screen NEGATIVE (NEGATIVE) 12/09/21 13:59 Ur Oxycodone Screen NEGATIVE (NEGATIVE) 12/09/21 13:59 Urine Methadone Screen NEGATIVE (NEGATIVE) 12/09/21 13:59 Ur Propoxyphene Screen NEGATIVE (NEGATIVE) 12/09/21 13:59 Ur Barbiturates Screen NEGATIVE (NEGATIVE) 12/09/21 13:59 Ur Tricyclics Screen NEGATIVE (NEGATIVE) 12/09/21 13:59 Ur Phencyclidine Scrn NEGATIVE (NEGATIVE) 12/09/21 13:59 Ur Amphetamine Screen NEGATIVE (NEGATIVE) 12/09/21 13:59 U Methamphetamines Scrn NEGATIVE (NEGATIVE) 12/09/21 13:59 U Benzodiazepines Scrn NEGATIVE (NEGATIVE) 12/09/21 13:59 Urine Cocaine Screen NEGATIVE (NEGATIVE) 12/09/21 13:59 U Cannabinoids Screen NEGATIVE (NEGATIVE) 12/09/21 13:59 - Procedures Procedures: Procedures [facility] (04/17/14) ABX Reporting Has patient been on IV antibiotics over the past 48 hours?: No Current Medications - Current Medications Current Medications: Active Medications Acetaminophen (Acetaminophen 325 Mg Tablet) 650 mg PO Q4HR PRN PRN Reason: Pain 1 to 4, or Fever Last Admin: 12/14/21 00:02 Dose: 650 mg Acetaminophen/Codeine Phosphate (Acetaminophen/Codeine 300 Mg/30 Mg Tablet) 0.5 tab PO QPM PRN PRN Reason: Severe Pain Albuterol (Albuterol Neb 2.5 Mg/3 Ml) 2.5 mg INH RTQ4H PRN PRN Reason: Wheezing Apixaban (Apixaban 2.5 Mg Tablet) 2.5 mg PO BID [facility] Last Admin: 12/14/21 09:29 Dose: 2.5 mg Atorvastatin Calcium (Atorvastatin 40 Mg Tablet) 40 mg PO QPM PEREZ Last Admin: 12/13/21 20:44 Dose: 40 mg Calcitriol (Calcitriol 0.25 Mcg Capsule) 0.5 mcg PO DAILY [facility] Last Admin: 12/14/21 09:29 Dose: 0.5 mcg Carbidopa/Levodopa (Carbidopa/Levodopa 25 Mg/250 Mg Tablet) 2 tab PO 0200,0800,1400,2000 [facility] Last Admin: 12/14/21 09:30 Dose: 2 tab Diltiazem HCl (Diltiazem Cd 180 Mg Capsule) 180 mg PO DAILY [facility] Last Admin: 12/14/21 09:40 Dose: 180 mg Divalproex Sodium (Divalproex Er 250 Mg Tablet) 500 mg PO BID [facility] Last Admin: 12/14/21 09:29 Dose: 500 mg Entacapone (Entacapone 200 Mg Tablet) 200 mg PO BID [facility] Last Admin: 12/14/21 09:31 Dose: Not Given Fluticasone Propionate (Fluticasone Nasal [place]) 1 sprays TAWANDA DAILY [facility] Last Admin: 12/14/21 09:30 Dose: 1 spr Insulin Aspart (Insulin Aspart 300 Unit/3 Ml Pen) 1 - 5 unit SUBQ 0800,1200,1700,2100 [facility]; Protocol Last Admin: 12/14/21 07:26 Dose: Not Given Insulin Glargine (Insulin Glargine 300 Unit/3 Ml Pen) 2 unit SUBQ QPM [facility] Last Admin: 12/13/21 21:09 Dose: 2 unit Levetiracetam (Levetiracetam 250 Mg Tablet) 500 mg PO DAILY [facility] Last Admin: 12/14/21 09:29 Dose: 500 mg Lidocaine (Lidocaine Patch 5%) 1 patch TOP DAILY PRN PRN Reason: PAIN Lorazepam (Lorazepam 2 Mg/Ml Vial) 1 mg IVP Q2H PRN PRN Reason: Seizure Last Admin: 12/10/21 08:37 Dose: 1 mg Magnesium Oxide (Magnesium Oxide 400 Mg Tablet) 400 mg PO DAILYWM [facility] Last Admin: 12/14/21 09:29 Dose: 400 mg Metoprolol Tartrate (Metoprolol 5 Mg/5 Ml Vial) 5 mg IVP Q6H PRN PRN Reason: Tachycardia Multivitamins (Multivitamin Tablet) 1 tab PO DAILYWM [facility] Last Admin: 12/14/21 09:30 Dose: 1 tab Ondansetron HCl (Ondansetron 4 Mg/2 Ml Vial) 4 mg IVP Q6HR PRN PRN Reason: Nausea / Vomiting Pantoprazole Sodium (Pantoprazole 40 Mg Tablet) 40 mg PO BIDAC [facility] Last Admin: 12/14/21 05:17 Dose: 40 mg Senna (Senna 8.6 Mg Tablet) 8.6 mg PO DAILY PRN PRN Reason: Constipation Senna (Senna 8.6 Mg Tablet) 17.2 - 25.8 mg PO Q6H [facility] Stop: 12/15/21 03:01 Last Admin: 12/14/21 09:29 Dose: 17.2 mg Sodium Chloride (Sodium Chloride Flush 0.9% 10 Ml Syringe) 10 ml IVP PRN PRN PRN Reason: NEEDED PER PROVIDER ORDERS Last Admin: 12/13/21 10:38 Dose: 10 ml Sodium Chloride (Sodium Chloride Flush 0.9% 10 Ml Syringe) 10 ml IVP 0100,0900,1700 [facility] Last Admin: 12/14/21 09:30 Dose: 10 ml Tamsulosin HCl (Tamsulosin 0.4 Mg Capsule) 0.4 mg PO DAILY [facility] Last Admin: 12/14/21 09:29 Dose: 0.4 mg Omeprazole 20 mg PO BID 10/02/13 Atorvastatin Calcium 40 mg PO QPM 01/24/16 Carbidopa/Levodopa [Carbidopa-Levodopa 25-250 Tab] 2 each PO QID 01/05/20 Rivaroxaban [Xarelto] 15 mg PO QDDINNER 07/23/20 Entacapone [Comtan] 200 mg PO BID 04/02/21 Multivit-Min/Folic/Vit K/Lycop [One Daily Men's 50 Plus D3 Tab] 1 each PO DAILY 04/02/21 calcitrioL [Rocaltrol] 0.5 mcg PO DAILY 04/02/21 Insulin Glargine [Lantus Solostar] 8 unit SQ HS 04/23/21 Senna [Senokot] 8.6 mg PO DAILY PRN 04/23/21 Albuterol Sulfate [Proair Hfa Inhaler] 2 puffs INH Q4HR PRN 11/18/21 Fluticasone [Flonase] 2 spray TAWANDA DAILY 11/18/21 diltiaZEM CD [Cardizem Cd] 180 mg PO DAILY 12/09/21
[2021-12-14] MEDS: LIDOCAINE PATCH 5% TOP PRN (14:31)
[2021-12-14] MEDS: ATORVASTATIN 40 MG TABLET PO SCH (22:34)
[2021-12-14] MEDS: INSULIN GLARGINE 300 UNIT/3 ML PEN SUBQ SCH (22:36)
[2021-12-15] MEDS: SODIUM CHLORIDE FLUSH 0.9% 10 ML SYRINGE IVP SCH ×3 (00:45→16:47)
[2021-12-15] MEDS: CARBIDOPA/LEVODOPA 25 MG/250 MG TABLET PO SCH ×4 (02:31→21:42)
[2021-12-15] MEDS: PANTOPRAZOLE 40 MG TABLET PO SCH ×3 (06:51→17:28)
[2021-12-15] MEDS: INSULIN ASPART 300 UNIT/3 ML PEN SUBQ SCH ×4 (08:15→21:42)
[2021-12-15] MEDS: MULTIVITAMIN TABLET PO SCH (08:30)
[2021-12-15 08:46] LABS: CALCIUM 8.9 mg/dL (8.5-10.3); POTASSIUM 4.3 mmol/L (3.5-5.0)
[2021-12-15 08:49] LABS: BASOPHILS # (AUTO) 0.1 10^3/uL (0.0-0.1); BASOPHILS % (AUTO) 0.8 %; EOSINOPHILS # (AUTO) 0.1 10^3/uL (0.0-0.7); HCT - HEMATOCRIT 30.4 % (42.0-52.0); HGB - HEMOGLOBIN 9.9 g/dL (14.0-18.0); LYMPHOCYTES # (AUTO) 1.2 10^3/uL (1.5-3.5); LYMPHOCYTES % (AUTO) 19.9 %; MEAN CORPUSCULAR HEMOGLOBIN 29.5 pg (27.0-31.0); MEAN CORPUSCULAR HGB CONC 32.6 g/dL (32.0-36.0); MEAN CORPUSCULAR VOLUME 90.5 fL (80.0-94.0); MEAN PLATELET VOLUME 12.3 fL (7.4-11.4); MONOCYTES # (AUTO) 0.6 10^3/uL (0.0-1.0); PLT - PLATELET COUNT 211 10^3/uL (130-450); RED BLOOD COUNT 3.36 10^6/uL (4.70-6.10); RED CELL DISTRIBUTION WIDTH 13.8 % (12.0-15.0)
[2021-12-15] MEDS ORDERED: MAGNESIUM OXIDE 400 MG TABLET PO SCH (09:00)
[2021-12-15] MEDS: TAMSULOSIN 0.4 MG CAPSULE PO SCH (09:19)
[2021-12-15] MEDS: calcitrioL 0.25 MCG CAPSULE PO SCH (09:20)
[2021-12-15] MEDS: diltiaZEM CD 180 MG CAPSULE PO SCH (09:20)
[2021-12-15] MEDS: FLUTICASONE NASAL SPRAY NAS SCH (09:20)
[2021-12-15] MEDS: MAGNESIUM OXIDE 400 MG TABLET PO SCH (09:20)
[2021-12-15] MEDS: levETIRAcetam 250 MG TABLET PO SCH (09:20)
[2021-12-15] MEDS: APIXABAN 2.5 MG TABLET PO SCH ×2 (09:20→21:41)
[2021-12-15] MEDS: DIVALPROEX ER 250 MG TABLET PO SCH ×2 (09:20→21:41)
[2021-12-15] MEDS: ENTACAPONE 200 MG TABLET PO SCH ×2 (10:28→21:42)
[2021-12-15] MEDS: ACETAMINOPHEN 325 MG TABLET PO PRN (13:19)
--- NOTE | 2021-12-15 13:30 | PROVIDER PROGRESS NOTE ---
Assessment/Plan - Problem List (1) Seizure Assessment/Plan: 12/15 pt is stable, no more seizure. pt is alert and oriented. it seems keppra 500mg daily and Depakote 500 bid are sufficient to control her seizure, and did not cause him confusion as far. we will continue Keppra and Depakote, continue seizure precaution. pt is ready for d/c. (2) Falls at home Conclusion/Plan: pt had multiple frequent falls at home. pt had PT/OT evaluation and treatment. pt is living alone, recommended pt be d/c to SNF for rehab, pt may need LTAC placement as well. consult with social media editor for replacement. fall precaution at hospital (3) Confusion significantly improved. pt also ate 100% his diet. reduce Depakote dosage, continue neuro check (4) CKD (chronic kidney disease) stage 4, GFR 15-29 ml/min Conclusion/Plan: 12/15 slight elevated creatinine to 4 and slight elevated BUN 49. continue hydr ation and lab monitor, followup with delivery architect as out-pt setting and palliative care. (5) Diabetes mellitus Conclusion/Plan: good control and his A1c is 6.4 continue slide scale, glucose check, hypoglycemia protocol (6) Atrial fibrillation Conclusion/Plan: HR is controlled, We resumed pt's home meds including his blood thinner as was OK from Neurology. But reduced the Eliquis dose from 5 bid to 2.5 bid, given his risk of falls, and renal dosage Telemetry to continue (7) Parkinson disease Conclusion/Plan: stable, continue home meds (8) [place] He is nearly completely deaf. Communication is by writing to him but he can verbalize back, continue support to pt. (9) Hypertension Conclusion/Plan: Stable. We resumed his home meds and ordered holding parameters. Continue vital sign monitoring. (10) Chronic LBP continue pain control Will also order a lidocaine patch topically (11) GERD (gastroesophageal reflux disease) we continued with Protonix as he took at home. (12)unsuspended ventricular tachycardia resolved, no more unsuspended VT. pt's mag is at normal arrange now. continue tele and vital monitor pt was reported on last night to have unsuspended VT. pt is asymptomatic, homedynamic stable, check the electrolytic Mag is 1.4, replaced. continue tele, vital and lab monitor. pt's troponin was slight elevated at 25 but repeated it was flat. pt denies chest pain. (4) Atrial fibrillation Qualifiers: Atrial fibrillation type: longstanding persistent Qualified Code(s): I48.11 - Longstanding persistent atrial fibrillation - Current Meds Current Meds: Current Medications Generic Name Dose Route Start Last Admin Trade Name Freq PRN Reason Stop Dose Admin Acetaminophen 650 mg 12/09/21 15:00 12/15/21 13:19 Acetaminophen 325 Mg Tablet PO 650 mg Q4HR PRN Administration Pain 1 to 4, or Fever Apixaban 2.5 mg 12/12/21 21:00 12/15/21 09:20 Apixaban 2.5 Mg Tablet PO 2.5 mg BID PEREZ Administration Atorvastatin Calcium 40 mg 12/10/21 21:00 12/14/21 22:34 Atorvastatin 40 Mg Tablet PO 40 mg QPM PEREZ Administration Calcitriol 0.5 mcg 12/11/21 09:00 12/15/21 09:20 Calcitriol 0.25 Mcg Capsule PO 0.5 mcg DAILY PEREZ Administration Carbidopa/Levodopa 2 tab 12/10/21 15:00 12/15/21 13:19 Carbidopa/Levodopa 25 Mg/250 Mg Tablet PO 2 tab 0200,0800,1400,2000 PEREZ Administration Diltiazem HCl 180 mg 12/11/21 09:00 12/15/21 09:20 Diltiazem Cd 180 Mg Capsule PO 180 mg DAILY PEREZ Administration Divalproex Sodium 500 mg 12/13/21 09:00 12/15/21 09:20 Divalproex Er 250 Mg Tablet PO 500 mg BID PEREZ Administration Entacapone 200 mg 12/10/21 21:00 12/15/21 10:28 Entacapone 200 Mg Tablet PO Not Given BID [facility] Fluticasone Propionate 1 sprays 12/11/21 09:00 12/15/21 09:20 Fluticasone Nasal [place] TAWANDA 1 spr DAILY PEREZ Administration Insulin Aspart 1 - 5 unit 12/09/21 17:00 12/15/21 12:53 Insulin Aspart 300 Unit/3 Ml Pen SUBQ 1 unit 0800,1200,1700,2100 PEREZ Administration Protocol Insulin Glargine 2 unit 12/11/21 21:00 12/14/21 22:36 Insulin Glargine 300 Unit/3 Ml Pen SUBQ 2 unit QPM PEREZ Administration Levetiracetam 500 mg 12/14/21 09:00 12/15/21 09:20 Levetiracetam 250 Mg Tablet PO 500 mg DAILY PEREZ Administration Lidocaine 1 patch 12/12/21 14:19 12/14/21 14:31 Lidocaine Patch 5% TOP 1 patch DAILY PRN Administration PAIN Lorazepam 1 mg 12/09/21 16:25 12/10/21 08:37 Lorazepam 2 Mg/Ml Vial IVP 1 mg Q2H PRN Administration Seizure Magnesium Oxide 800 mg 12/15/21 09:00 12/15/21 09:20 Magnesium Oxide 400 Mg Tablet PO 800 mg DAILYWM PEREZ Administration Multivitamins 1 tab 12/11/21 08:00 12/15/21 08:30 Multivitamin Tablet PO 1 tab DAILYWM PEREZ Administration Pantoprazole Sodium 40 mg 12/10/21 16:00 12/15/21 07:10 Pantoprazole 40 Mg Tablet PO Not Given BIDAC PEREZ Sodium Chloride 10 ml 12/09/21 15:00 12/13/21 10:38 Sodium Chloride Flush 0.9% 10 Ml Syringe IVP 10 ml PRN PRN Administration NEEDED PER PROVIDER ORDERS Sodium Chloride 10 ml 12/09/21 17:00 12/15/21 09:20 Sodium Chloride Flush 0.9% 10 Ml Syringe IVP 10 ml 0100,0900,1700 PEREZ Administration Tamsulosin HCl 0.4 mg 12/11/21 09:00 12/15/21 09:19 Tamsulosin 0.4 Mg Capsule PO 0.4 mg DAILY PEREZ Administration - Lab Result Fish Bone Diagrams: 12/15/21 08:43 12/15/21 05:13 - Additional Planning My Orders: My Active Orders 12/15/21 09:00 Magnesium Oxide [Mag Ox] 800 mg PO DAILYWM 12/15/21 14:00 Sodium Chloride 0.9% [Normal Saline 0.9%] 1,000 ml IV 100 mls/hr 12/16/21 05:00 BMP - BASIC METABOLIC PANEL [CHEM] DAILYLAB CBC - COMP BLD CT W/AUTO DIFF [HEME] DAILYLAB 12/17/21 05:00 BMP - BASIC METABOLIC PANEL [CHEM] DAILYLAB CBC - COMP BLD CT W/AUTO DIFF [HEME] DAILYLAB 12/18/21 05:00 BMP - BASIC METABOLIC PANEL [CHEM] DAILYLAB CBC - COMP BLD CT W/AUTO DIFF [HEME] DAILYLAB 12/19/21 05:00 CBC - COMP BLD CT W/AUTO DIFF [HEME] DAILYLAB Subjective - Subjective Patient Reports: Resting Comfortably Objective Vital Signs: Vital Signs - 24 hr 12/14/21 12/14/21 12/15/21 15:50 20:18 00:19 Temperature 36.4 C L 36.5 C 36.9 C Heart Rate [ 68 66 79 Brachial] Respiratory 14 16 16 Rate Blood Pressure 97/45 L 124/60 156/85 H [Left Brachial artery] O2 Saturation 100 99 99 12/15/21 12/15/21 12/15/21 04:36 07:39 11:34 Temperature 36.6 C 36.7 C 36.6 C Heart Rate [ 67 76 69 Brachial] Respiratory 18 16 17 Rate Blood Pressure 122/70 135/72 H 137/86 H [Left Brachial artery] O2 Saturation 97 99 97 Oxygen O2 Source Room air I&O (Last 24 Hrs): Intake and Output Totals x24h 12/13/21 12/14/21 12/15/21 23:59 23:59 23:59 Intake Total 1475 1250 360 Output Total 400 Balance 1475 1250 -40 General: Alert, Oriented x3, Cooperative, No acute distress HEENT: Atraumatic Neck: Supple Lymphatic: no adenopathy Neuro: Alert, Non Focal, Oriented Times 3 Cardiovascular: Regular rate, Normal S1, Normal S2 Respiratory: Chest non-tender, No respiratory distress Abdomen: Normal bowel sounds, Soft Extremities: Normal pulses - Results Results: Laboratory Results WBC 6.0 x10^3/uL (4.8-10.8) 12/15/21 08:43 RBC 3.36 10^6/uL (4.70-6.10) L 12/15/21 08:43 Hgb 9.9 g/dL (14.0-18.0) L 12/15/21 08:43 Hct 30.4 % (42.0-52.0) L 12/15/21 08:43 MCV 90.5 fL (80.0-94.0) 12/15/21 08:43 MCH 29.5 pg (27.0-31.0) 12/15/21 08:43 MCHC 32.6 g/dL (32.0-36.0) 12/15/21 08:43 RDW 13.8 % (12.0-15.0) 12/15/21 08:43 Plt Count 211 10^3/uL (130-450) 12/15/21 08:43 MPV 12.3 fL (7.4-11.4) H 12/15/21 08:43 Neut # (Auto) 4.0 10^3/uL (1.5-6.6) 12/15/21 08:43 Lymph # (Auto) 1.2 10^3/uL (1.5-3.5) L 12/15/21 08:43 [place] # (Auto) 0.6 10^3/uL (0.0-1.0) 12/15/21 08:43 Eos # (Auto) 0.1 10^3/uL (0.0-0.7) 12/15/21 08:43 Baso # (Auto) 0.1 10^3/uL (0.0-0.1) 12/15/21 08:43 Absolute Nucleated RBC 0.00 x10^3/uL 12/15/21 08:43 Nucleated RBC % 0.0 /100WBC 12/15/21 08:43 APTT 28.1 secs (24.9-33.3) 12/10/21 09:50 Sodium 137 mmol/L (135-145) 12/15/21 05:13 Potassium 4.3 mmol/L (3.5-5.0) 12/15/21 05:13 Chloride 108 mmol/L (101-111) 12/15/21 05:13 Carbon Dioxide 17 mmol/L (21-32) L 12/15/21 05:13 Anion Gap 12.0 (6-13) 12/15/21 05:13 BUN 49 mg/dL (6-20) H 12/15/21 05:13 Creatinine 4.0 mg/dL (0.6-1.2) H 12/15/21 05:13 Estimated GFR (MDRD) 15 (>89) L 12/15/21 05:13 Glucose 132 mg/dL (70-100) H 12/15/21 05:13 Estimat Average Glucose 137 mg/dL (70-100) H 12/10/21 04:35 Hemoglobin A1c % 6.4 % (4.27-6.07) H 12/10/21 04:35 Calcium 8.9 mg/dL (8.5-10.3) 12/15/21 05:13 Phosphorus 5.1 mg/dL (2.5-4.6) H 12/09/21 12:56 Magnesium 1.6 mg/dL (1.7-2.8) L 12/15/21 05:13 Total Bilirubin 1.8 mg/dL (0.2-1.0) H 12/09/21 12:56 AST 13 IU/L (10-42) 12/09/21 12:56 ALT < 10 IU/L (10-60) L 12/09/21 12:56 Alkaline Phosphatase 60 IU/L (42-121) 12/09/21 12:56 Total Creatine Kinase 51 IU/L (22-269) 12/09/21 12:56 Troponin I High Sens 33.5 ng/L (2.3-19.7) H* 12/09/21 19:01 Total Protein 7.4 g/dL (6.7-8.2) 12/09/21 12:56 Albumin 4.1 g/dL (3.2-5.5) 12/09/21 12:56 Globulin 3.3 g/dL (2.1-4.2) 12/09/21 12:56 Albumin/Globulin Ratio 1.2 (1.0-2.2) 12/09/21 12:56 Lipase 35 U/L (22-51) 12/09/21 12:56 Urine Color YELLOW 12/09/21 13:59 Urine Clarity HAZY (CLEAR) 12/09/21 13:59 Urine pH 5.5 PH (5.0-7.5) 12/09/21 13:59 Ur Specific [place] >=1.030 (1.002-1.030) H 12/09/21 13:59 Urine Protein >=300 mg/dL (NEGATIVE) H 12/09/21 13:59 Urine Glucose (UA) NEGATIVE mg/dL (NEGATIVE) 12/09/21 13:59 Urine Ketones NEGATIVE mg/dL (NEGATIVE) 12/09/21 13:59 Urine Occult Blood MODERATE (NEGATIVE) H 12/09/21 13:59 Urine Nitrite NEGATIVE (NEGATIVE) 12/09/21 13:59 Urine Bilirubin NEGATIVE (NEGATIVE) 12/09/21 13:59 Urine Urobilinogen 0.2 (NORMAL) E.U./dL (NORMAL) 12/09/21 13:59 Ur Leukocyte Esterase NEGATIVE (NEGATIVE) 12/09/21 13:59 Urine RBC 11-25 /HPF (0-5) H 12/09/21 13:59 Urine WBC 6-10 /HPF (0-3) H 12/09/21 13:59 Ur Squamous Epith Cells RARE Squamous (<= Few) 12/09/21 13:59 Urine Bacteria Moderate /HPF (None Seen) H 12/09/21 13:59 Urine Casts 3-5 Granular Casts /LPF 12/09/21 13:59 Ur Microscopic Review INDICATED 12/09/21 13:59 Urine Culture Comments NOT INDICATED 12/09/21 13:59 Nasal Adenovirus (PCR) NOT DETECTED 12/09/21 13:59 Nasal B. parapertussis DNA (PCR) NOT DETECTED 12/09/21 13:59 Nasal Coronavir 229E PCR NOT DETECTED 12/09/21 13:59 Nasal Coronavir HKU1 PCR NOT DETECTED 12/09/21 13:59 Nasal Coronavir NL63 PCR NOT DETECTED 12/09/21 13:59 Nasal Coronavir OC43 PCR NOT DETECTED 12/09/21 13:59 Nasal Enterovir/Rhinovir PCR NOT DETECTED 12/09/21 13:59 Nasal Influenza B PCR NOT DETECTED 12/09/21 13:59 Nasal Influenza A PCR NOT DETECTED 12/09/21 13:59 Nasal Parainfluen 1 PCR NOT DETECTED 12/09/21 13:59 Nasal Parainfluen 2 PCR NOT DETECTED 12/09/21 13:59 Nasal Parainfluen 3 PCR NOT DETECTED 12/09/21 13:59 Nasal Parainfluen 4 PCR NOT DETECTED 12/09/21 13:59 Nasal RSV (PCR) NOT DETECTED 12/09/21 13:59 Nasal B.pertussis DNA PCR NOT DETECTED 12/09/21 13:59 Nasal C.pneumoniae (PCR) NOT DETECTED 12/09/21 13:59 [place] Human Metapneumo PCR NOT DETECTED 12/09/21 13:59 Nasal M.pneumoniae (PCR) NOT DETECTED 12/09/21 13:59 Nasal SARS-CoV-2 (PCR) NOT DETECTED 12/09/21 13:59 Urine Opiates Screen NEGATIVE (NEGATIVE) 12/09/21 13:59 Ur Oxycodone Screen NEGATIVE (NEGATIVE) 12/09/21 13:59 Urine Methadone Screen NEGATIVE (NEGATIVE) 12/09/21 13:59 Ur Propoxyphene Screen NEGATIVE (NEGATIVE) 12/09/21 13:59 Ur Barbiturates Screen NEGATIVE (NEGATIVE) 12/09/21 13:59 Ur Tricyclics Screen NEGATIVE (NEGATIVE) 12/09/21 13:59 Ur Phencyclidine Scrn NEGATIVE (NEGATIVE) 12/09/21 13:59 Ur Amphetamine Screen NEGATIVE (NEGATIVE) 12/09/21 13:59 U Methamphetamines Scrn NEGATIVE (NEGATIVE) 12/09/21 13:59 U Benzodiazepines Scrn NEGATIVE (NEGATIVE) 12/09/21 13:59 Urine Cocaine Screen NEGATIVE (NEGATIVE) 12/09/21 13:59 U Cannabinoids Screen NEGATIVE (NEGATIVE) 12/09/21 13:59 - Procedures Procedures: Procedures VENOUS CATHETERIZATION NEC (04/17/14) ABX Reporting Has patient been on IV antibiotics over the past 48 hours?: No Current Medications - Current Medications Current Medications: Active Medications Acetaminophen (Acetaminophen 325 Mg Tablet) 650 mg PO Q4HR PRN PRN Reason: Pain 1 to 4, or Fever Last Admin: 12/15/21 13:19 Dose: 650 mg Acetaminophen/Codeine Phosphate (Acetaminophen/Codeine 300 Mg/30 Mg Tablet) 0.5 tab PO QPM PRN PRN Reason: Severe Pain Apixaban (Apixaban 2.5 Mg Tablet) 2.5 mg PO BID [facility] Last Admin: 12/15/21 09:20 Dose: 2.5 mg Atorvastatin Calcium (Atorvastatin 40 Mg Tablet) 40 mg PO QPM [facility] Last Admin: 12/14/21 22:34 Dose: 40 mg Calcitriol (Calcitriol 0.25 Mcg Capsule) 0.5 mcg PO DAILY [facility] Last Admin: 12/15/21 09:20 Dose: 0.5 mcg Carbidopa/Levodopa (Carbidopa/Levodopa 25 Mg/250 Mg Tablet) 2 tab PO 0200,0800,1400,2000 [facility] Last Admin: 12/15/21 13:19 Dose: 2 tab Diltiazem HCl (Diltiazem Cd 180 Mg Capsule) 180 mg PO DAILY [facility] Last Admin: 12/15/21 09:20 Dose: 180 mg Divalproex Sodium (Divalproex Er 250 Mg Tablet) 500 mg PO BID [facility] Last Admin: 12/15/21 09:20 Dose: 500 mg Entacapone (Entacapone 200 Mg Tablet) 200 mg PO BID [facility] Last Admin: 12/15/21 10:28 Dose: Not Given Fluticasone Propionate (Fluticasone Nasal [place]) 1 sprays TAWANDA DAILY [facility] Last Admin: 12/15/21 09:20 Dose: 1 spr Sodium Chloride (Normal Saline 0.9%) 1,000 mls @ 100 mls/hr IV .Q10H [facility] Stop: 12/16/21 09:59 Insulin Aspart (Insulin Aspart 300 Unit/3 Ml Pen) 1 - 5 unit SUBQ 0800,1200,1700,2100 [facility]; Protocol Last Admin: 12/15/21 12:53 Dose: 1 unit Insulin Glargine (Insulin Glargine 300 Unit/3 Ml Pen) 2 unit SUBQ QPM [facility] Last Admin: 12/14/21 22:36 Dose: 2 unit Levetiracetam (Levetiracetam 250 Mg Tablet) 500 mg PO DAILY [facility] Last Admin: 12/15/21 09:20 Dose: 500 mg Lidocaine (Lidocaine Patch 5%) 1 patch TOP DAILY PRN PRN Reason: PAIN Last Admin: 12/14/21 14:31 Dose: 1 patch Lorazepam (Lorazepam 2 Mg/Ml Vial) 1 mg IVP Q2H PRN PRN Reason: Seizure Last Admin: 12/10/21 08:37 Dose: 1 mg Magnesium Oxide (Magnesium Oxide 400 Mg Tablet) 800 mg PO DAILYWM [facility] Last Admin: 12/15/21 09:20 Dose: 800 mg Metoprolol Tartrate (Metoprolol 5 Mg/5 Ml Vial) 5 mg IVP Q6H PRN PRN Reason: Tachycardia Multivitamins (Multivitamin Tablet) 1 tab PO DAILYWM [facility] Last Admin: 12/15/21 08:30 Dose: 1 tab Ondansetron HCl (Ondansetron 4 Mg/2 Ml Vial) 4 mg IVP Q6HR PRN PRN Reason: Nausea / Vomiting Pantoprazole Sodium (Pantoprazole 40 Mg Tablet) 40 mg PO BIDAC [facility] Last Admin: 12/15/21 07:10 Dose: Not Given Senna (Senna 8.6 Mg Tablet) 8.6 mg PO DAILY PRN PRN Reason: Constipation Sodium Chloride (Sodium Chloride Flush 0.9% 10 Ml Syringe) 10 ml IVP PRN PRN PRN Reason: NEEDED PER PROVIDER ORDERS Last Admin: 12/13/21 10:38 Dose: 10 ml Sodium Chloride (Sodium Chloride Flush 0.9% 10 Ml Syringe) 10 ml IVP 0100,0900,1700 [facility] Last Admin: 12/15/21 09:20 Dose: 10 ml Tamsulosin HCl (Tamsulosin 0.4 Mg Capsule) 0.4 mg PO DAILY [facility] Last Admin: 12/15/21 09:19 Dose: 0.4 mg Omeprazole 20 mg PO BID 10/02/13 Atorvastatin Calcium 40 mg PO QPM 01/24/16 Carbidopa/Levodopa [Carbidopa-Levodopa 25-250 Tab] 2 each PO QID 01/05/20 Rivaroxaban [Xarelto] 15 mg PO QDDINNER 07/23/20 Entacapone [Comtan] 200 mg PO BID 04/02/21 Multivit-Min/Folic/Vit K/Lycop [One Daily Men's 50 Plus D3 Tab] 1 each PO DAILY 04/02/21 calcitrioL [Rocaltrol] 0.5 mcg PO DAILY 04/02/21 Insulin Glargine [Lantus Solostar] 8 unit SQ HS 04/23/21 Senna [Senokot] 8.6 mg PO DAILY PRN 04/23/21 Albuterol Sulfate [Proair Hfa Inhaler] 2 puffs INH Q4HR PRN 11/18/21 Fluticasone [Flonase] 2 spray TAWANDA DAILY 11/18/21 diltiaZEM CD [Cardizem Cd] 180 mg PO DAILY 12/09/21
[2021-12-15] MEDS: SODIUM CHLORIDE FLUSH 0.9% 10 ML SYRINGE IVP PRN (13:49)
[2021-12-15] MEDS: SODIUM CHLORIDE 0.9% 1,000 ML IV SCH (13:49)
[2021-12-15] MEDS ORDERED: SODIUM CHLORIDE 0.9% 1,000 ML IV SCH (14:00)
[2021-12-15] MEDS: ACETAMINOPHEN/CODEINE 300 MG/30 MG TABLET PO PRN (21:40)
[2021-12-15] MEDS: ATORVASTATIN 40 MG TABLET PO SCH (21:42)
[2021-12-15] MEDS: INSULIN GLARGINE 300 UNIT/3 ML PEN SUBQ SCH (21:43)
[2021-12-16] MEDS: SODIUM CHLORIDE FLUSH 0.9% 10 ML SYRINGE IVP SCH ×4 (01:16→23:57)
[2021-12-16] MEDS: SODIUM CHLORIDE 0.9% 1,000 ML IV SCH (01:16)
[2021-12-16] MEDS: CARBIDOPA/LEVODOPA 25 MG/250 MG TABLET PO SCH ×4 (02:17→21:10)
[2021-12-16 06:04] LABS: BASOPHILS % (AUTO) 0.4 %; EOSINOPHILS # (AUTO) 0.1 10^3/uL (0.0-0.7); EOSINOPHILS % (AUTO) 2.9 %; HCT - HEMATOCRIT 28.4 % (42.0-52.0); HGB - HEMOGLOBIN 8.7 g/dL (14.0-18.0); LYMPHOCYTES # (AUTO) 1.1 10^3/uL (1.5-3.5); LYMPHOCYTES % (AUTO) 23.5 %; MEAN CORPUSCULAR HEMOGLOBIN 28.7 pg (27.0-31.0); MEAN CORPUSCULAR HGB CONC 30.6 g/dL (32.0-36.0); MEAN CORPUSCULAR VOLUME 93.7 fL (80.0-94.0); MEAN PLATELET VOLUME 12.1 fL (7.4-11.4); MONOCYTES # (AUTO) 0.5 10^3/uL (0.0-1.0); MONOCYTES % (AUTO) 10.8 %; PLT - PLATELET COUNT 183 10^3/uL (130-450); RED BLOOD COUNT 3.03 10^6/uL (4.70-6.10); RED CELL DISTRIBUTION WIDTH 14.1 % (12.0-15.0); WHITE BLOOD COUNT 4.8 x10^3/uL (4.8-10.8)
[2021-12-16 06:14] LABS: CALCIUM 8.8 mg/dL (8.5-10.3); CREATININE 3.8 mg/dL (0.6-1.2); POTASSIUM 4.5 mmol/L (3.5-5.0)
[2021-12-16] MEDS: PANTOPRAZOLE 40 MG TABLET PO SCH ×2 (06:19→16:00)
[2021-12-16] MEDS: MULTIVITAMIN TABLET PO SCH (07:54)
[2021-12-16] MEDS: MAGNESIUM OXIDE 400 MG TABLET PO SCH (07:54)
[2021-12-16] MEDS: INSULIN ASPART 300 UNIT/3 ML PEN SUBQ SCH ×4 (07:55→21:11)
[2021-12-16] MEDS: levETIRAcetam 250 MG TABLET PO SCH (09:08)
[2021-12-16] MEDS: TAMSULOSIN 0.4 MG CAPSULE PO SCH (09:09)
[2021-12-16] MEDS: diltiaZEM CD 180 MG CAPSULE PO SCH (09:09)
[2021-12-16] MEDS: calcitrioL 0.25 MCG CAPSULE PO SCH (09:09)
[2021-12-16] MEDS: ENTACAPONE 200 MG TABLET PO SCH ×2 (09:10→21:11)
[2021-12-16] MEDS: APIXABAN 2.5 MG TABLET PO SCH ×2 (09:10→21:10)
[2021-12-16] MEDS: DIVALPROEX ER 250 MG TABLET PO SCH ×2 (09:12→21:09)
[2021-12-16] MEDS: FLUTICASONE NASAL SPRAY NAS SCH (09:12)
--- NOTE | 2021-12-16 10:36 | PROVIDER PROGRESS NOTE ---
Assessment/Plan - Problem List (1) Seizure Assessment/Plan: 12/16 seizure is controlled, and pt is oriented. PT/OT recommend to SNF, consult with social media senior associate for d/c planning. 12/15 pt is stable, no more seizure. pt is alert and oriented. it seems keppra 500mg daily and Depakote 500 bid are sufficient to control her seizure, and did not cause him confusion as far. we will continue Keppra and Depakote, continue seizure precaution. pt is ready for d/c. (2) Falls at home Conclusion/Plan: pt had multiple frequent falls at home. pt had PT/OT evaluation and treatment. pt is living alone, recommended pt be d/c to SNF for rehab, pt may need LTAC placement as well. consult with social media senior associate for replacement. fall precaution at hospital (3) Confusion 12/16 resolved. significantly improved. pt also ate 100% his diet. reduce Depakote dosage, continue neuro check (4) CKD (chronic kidney disease) stage 4, GFR 15-29 ml/min Conclusion/Plan: 12/16 creatinine is 3.8 today, stable 12/15 slight elevated creatinine to 4 and slight elevated BUN 49. continue hydration and lab monitor, followup with extension professor as out-pt setting and palliative care. (5) Diabetes mellitus Conclusion/Plan: good control and his A1c is 6.4 continue slide scale, glucose check, hypoglycemia protocol (6) Atrial fibrillation Conclusion/Plan: HR is controlled, We resumed pt's home meds including his blood thinner as was OK from Neurology. But reduced the Eliquis dose from 5 bid to 2.5 bid, given his risk of falls, and renal dosage Telemetry to continue (7) Parkinson disease Conclusion/Plan: stable, continue home meds (8) [place] He is nearly completely deaf. Communication is by writing to him but he can verbalize back, continue support to pt. (9) Hypertension Conclusion/Plan: Stable. We resumed his home meds and ordered holding parameters. Continue vital sign monitoring. (10) Chronic LBP continue pain control Will also order a lidocaine patch topically (11) GERD (gastroesophageal reflux disease) we continued with Protonix as he took at home. (12)unsuspended ventricular tachycardia resolved, no more unsuspended VT. pt's mag is at normal arrange now. continue tele and vital monitor pt was reported on last night to have unsuspended VT. pt is asymptomatic, homedynamic stable, check the electrolytic Mag is 1.4, replaced. continue tele, vital and lab monitor. pt's troponin was slight elevated at 25 but repeated it was flat. pt denies chest pain. (4) Atrial fibrillation Qualifiers: Atrial fibrillation type: longstanding persistent Qualified Code(s): I48.11 - Longstanding persistent atrial fibrillation - Current Meds Current Meds: Current Medications Generic Name Dose Route Start Last Admin Trade Name Freq PRN Reason Stop Dose Admin Acetaminophen 650 mg 12/09/21 15:00 12/15/21 13:19 Acetaminophen 325 Mg Tablet PO 650 mg Q4HR PRN Administration Pain 1 to 4, or Fever Acetaminophen/Codeine Phosphate 0.5 tab 12/12/21 14:18 12/15/21 21:40 Acetaminophen/Codeine 300 Mg/30 Mg Tablet PO 0.5 tab QPM PRN Administration Severe Pain Apixaban 2.5 mg 12/12/21 21:00 12/16/21 09:10 Apixaban 2.5 Mg Tablet PO 2.5 mg BID PEREZ Administration Atorvastatin Calcium 40 mg 12/10/21 21:00 12/15/21 21:42 Atorvastatin 40 Mg Tablet PO 40 mg QPM PEREZ Administration Calcitriol 0.5 mcg 12/11/21 09:00 12/16/21 09:09 Calcitriol 0.25 Mcg Capsule PO 0.5 mcg DAILY PEREZ Administration Carbidopa/Levodopa 2 tab 12/10/21 15:00 12/16/21 07:55 Carbidopa/Levodopa 25 Mg/250 Mg Tablet PO 2 tab 0200,0800,1400,2000 PEREZ Administration Diltiazem HCl 180 mg 12/11/21 09:00 12/16/21 09:09 Diltiazem Cd 180 Mg Capsule PO 180 mg DAILY PEREZ Administration Divalproex Sodium 500 mg 12/13/21 09:00 12/16/21 09:12 Divalproex Er 250 Mg Tablet PO 500 mg BID PEREZ Administration Entacapone 200 mg 12/10/21 21:00 12/16/21 09:10 Entacapone 200 Mg Tablet PO Not Given BID PEREZ Fluticasone Propionate 1 sprays 12/11/21 09:00 12/16/21 09:12 Fluticasone Nasal [place] TAWANDA 1 spr DAILY PEREZ Administration Sodium Chloride 1,000 mls @ 83.3 mls/hr 12/15/21 14:00 12/16/21 01:16 Normal Saline 0.9% IV 12/16/21 14:00 83.3 mls/hr .Q12H1M PEREZ Administration Insulin Aspart 1 - 5 unit 12/09/21 17:00 12/16/21 07:55 Insulin Aspart 300 Unit/3 Ml Pen SUBQ Not Given 0800,1200,1700,2100 [facility] Protocol Insulin Glargine 2 unit 12/11/21 21:00 12/15/21 21:43 Insulin Glargine 300 Unit/3 Ml Pen SUBQ 2 unit QPM PEREZ Administration Levetiracetam 500 mg 12/14/21 09:00 12/16/21 09:08 Levetiracetam 250 Mg Tablet PO 500 mg DAILY PEREZ Administration Lidocaine 1 patch 12/12/21 14:19 12/14/21 14:31 Lidocaine Patch 5% TOP 1 patch DAILY PRN Administration PAIN Lorazepam 1 mg 12/09/21 16:25 12/10/21 08:37 Lorazepam 2 Mg/Ml Vial IVP 1 mg Q2H PRN Administration Seizure Magnesium Oxide 800 mg 12/15/21 09:00 12/16/21 07:54 Magnesium Oxide 400 Mg Tablet PO 800 mg DAILYWM PEREZ Administration Multivitamins 1 tab 12/11/21 08:00 12/16/21 07:54 Multivitamin Tablet PO 1 tab DAILYWM PEREZ Administration Pantoprazole Sodium 40 mg 12/10/21 16:00 12/16/21 06:19 Pantoprazole 40 Mg Tablet PO 40 mg BIDAC PEREZ Administration Sodium Chloride 10 ml 12/09/21 15:00 12/15/21 13:49 Sodium Chloride Flush 0.9% 10 Ml Syringe IVP 10 ml PRN PRN Administration NEEDED PER PROVIDER ORDERS Sodium Chloride 10 ml 12/09/21 17:00 12/16/21 09:12 Sodium Chloride Flush 0.9% 10 Ml Syringe IVP 10 ml 0100,0900,1700 PEREZ Administration Tamsulosin HCl 0.4 mg 12/11/21 09:00 12/16/21 09:09 Tamsulosin 0.4 Mg Capsule PO 0.4 mg DAILY PEREZ Administration - Lab Result Fish Bone Diagrams: 12/16/21 04:55 12/16/21 04:55 - Additional Planning My Orders: My Active Orders 12/15/21 14:00 Sodium Chloride 0.9% [Normal Saline 0.9%] 1,000 ml IV 83.3 mls/hr 12/16/21 10:32 Telemetry- [RC] Q4HR 12/17/21 05:00 BMP - BASIC METABOLIC PANEL [CHEM] DAILYLAB CBC - COMP BLD CT W/AUTO DIFF [HEME] DAILYLAB MAGNESIUM [CHEM] DAILYLAB 12/18/21 05:00 BMP - BASIC METABOLIC PANEL [CHEM] DAILYLAB CBC - COMP BLD CT W/AUTO DIFF [HEME] DAILYLAB MAGNESIUM [CHEM] DAILYLAB 12/19/21 05:00 CBC - COMP BLD CT W/AUTO DIFF [HEME] DAILYLAB MAGNESIUM [CHEM] DAILYLAB Subjective - Subjective Patient Reports: Resting Comfortably Objective Vital Signs: Vital Signs - 24 hr 12/15/21 12/15/21 12/15/21 11:34 11:52 15:48 Temperature 36.6 C 36.6 C Heart Rate [ 69 68 Brachial] Heart Rate [ Monitoring electrodes] Heart Rate [ 83 Sitting] Heart Rate [ 117 H Standing] Heart Rate [ 69 Supine] Respiratory 17 20 Rate Blood Pressure 137/86 H 114/61 [Left Brachial artery] Blood Pressure 128/74 [Sitting] Blood Pressure 130/67 [Standing] Blood Pressure 148/74 H [Supine] O2 Saturation 97 100 12/15/21 12/16/21 12/16/21 20:31 02:20 05:00 Temperature 36.3 C L 37.0 C 36.4 C L Heart Rate [ 62 72 Brachial] Heart Rate [ 57 L Monitoring electrodes] Heart Rate [ Sitting] Heart Rate [ Standing] Heart Rate [ Supine] Respiratory 20 18 18 Rate Blood Pressure 129/62 126/64 122/52 L [Left Brachial artery] Blood Pressure [Sitting] Blood Pressure [Standing] Blood Pressure [Supine] O2 Saturation 98 98 99 12/16/21 07:26 Temperature 36.5 C Heart Rate [ Brachial] Heart Rate [ Monitoring electrodes] Heart Rate [ Sitting] Heart Rate [ Standing] Heart Rate [ Supine] Respiratory 20 Rate Blood Pressure 127/54 L [Left Brachial artery] Blood Pressure [Sitting] Blood Pressure [Standing] Blood Pressure [Supine] O2 Saturation 99 Oxygen O2 Source Room air I&O (Last 24 Hrs): Intake and Output Totals x24h 12/14/21 12/15/21 12/16/21 23:59 23:59 23:59 Intake Total 1250 1000 1493.785 Output Total 1300 400 Balance 1250 -300 1093.785 General: Alert, Oriented x3, Cooperative, No acute distress HEENT: Atraumatic Neck: Supple Lymphatic: no adenopathy Neuro: Alert, Non Focal, Oriented Times 3 Cardiovascular: Regular rate, Normal S1, Normal S2 Respiratory: Chest non-tender, No respiratory distress Abdomen: Normal bowel sounds, Soft Extremities: Normal pulses - Results Results: Laboratory Results WBC 4.8 x10^3/uL (4.8-10.8) 12/16/21 04:55 RBC 3.03 10^6/uL (4.70-6.10) L 12/16/21 04:55 Hgb 8.7 g/dL (14.0-18.0) L 12/16/21 04:55 Hct 28.4 % (42.0-52.0) L 12/16/21 04:55 MCV 93.7 fL (80.0-94.0) 12/16/21 04:55 MCH 28.7 pg (27.0-31.0) 12/16/21 04:55 MCHC 30.6 g/dL (32.0-36.0) L 12/16/21 04:55 RDW 14.1 % (12.0-15.0) 12/16/21 04:55 Plt Count 183 10^3/uL (130-450) 12/16/21 04:55 MPV 12.1 fL (7.4-11.4) H 12/16/21 04:55 Neut # (Auto) 3.0 10^3/uL (1.5-6.6) 12/16/21 04:55 Lymph # (Auto) 1.1 10^3/uL (1.5-3.5) L 12/16/21 04:55 [place] # (Auto) 0.5 10^3/uL (0.0-1.0) 12/16/21 04:55 Eos # (Auto) 0.1 10^3/uL (0.0-0.7) 12/16/21 04:55 Baso # (Auto) 0.0 10^3/uL (0.0-0.1) 12/16/21 04:55 Absolute Nucleated RBC 0.00 x10^3/uL 12/16/21 04:55 Nucleated RBC % 0.0 /100WBC 12/16/21 04:55 APTT 28.1 secs (24.9-33.3) 12/10/21 09:50 Sodium 136 mmol/L (135-145) 12/16/21 04:55 Potassium 4.5 mmol/L (3.5-5.0) 12/16/21 04:55 Chloride 109 mmol/L (101-111) 12/16/21 04:55 Carbon Dioxide 20 mmol/L (21-32) L 12/16/21 04:55 Anion Gap 7.0 (6-13) 12/16/21 04:55 BUN 52 mg/dL (6-20) H 12/16/21 04:55 Creatinine 3.8 mg/dL (0.6-1.2) H 12/16/21 04:55 Estimated GFR (MDRD) 16 (>89) L 12/16/21 04:55 Glucose 121 mg/dL (70-100) H 12/16/21 04:55 Estimat Average Glucose 137 mg/dL (70-100) H 12/10/21 04:35 Hemoglobin A1c % 6.4 % (4.27-6.07) H 12/10/21 04:35 Calcium 8.8 mg/dL (8.5-10.3) 12/16/21 04:55 Phosphorus 5.1 mg/dL (2.5-4.6) H 12/09/21 12:56 Magnesium 1.7 mg/dL (1.7-2.8) 12/16/21 05:54 Total Bilirubin 1.8 mg/dL (0.2-1.0) H 12/09/21 12:56 AST 13 IU/L (10-42) 12/09/21 12:56 ALT < 10 IU/L (10-60) L 12/09/21 12:56 Alkaline Phosphatase 60 IU/L (42-121) 12/09/21 12:56 Total Creatine Kinase 51 IU/L (22-269) 12/09/21 12:56 Troponin I High Sens 33.5 ng/L (2.3-19.7) H* 12/09/21 19:01 Total Protein 7.4 g/dL (6.7-8.2) 12/09/21 12:56 Albumin 4.1 g/dL (3.2-5.5) 12/09/21 12:56 Globulin 3.3 g/dL (2.1-4.2) 12/09/21 12:56 Albumin/Globulin Ratio 1.2 (1.0-2.2) 12/09/21 12:56 Lipase 35 U/L (22-51) 12/09/21 12:56 Urine Color YELLOW 12/09/21 13:59 Urine Clarity HAZY (CLEAR) 12/09/21 13:59 Urine pH 5.5 PH (5.0-7.5) 12/09/21 13:59 Ur Specific [place] >=1.030 (1.002-1.030) H 12/09/21 13:59 Urine Protein >=300 mg/dL (NEGATIVE) H 12/09/21 13:59 Urine Glucose (UA) NEGATIVE mg/dL (NEGATIVE) 12/09/21 13:59 Urine Ketones NEGATIVE mg/dL (NEGATIVE) 12/09/21 13:59 Urine Occult Blood MODERATE (NEGATIVE) H 12/09/21 13:59 Urine Nitrite NEGATIVE (NEGATIVE) 12/09/21 13:59 Urine Bilirubin NEGATIVE (NEGATIVE) 12/09/21 13:59 Urine Urobilinogen 0.2 (NORMAL) E.U./dL (NORMAL) 12/09/21 13:59 Ur Leukocyte Esterase NEGATIVE (NEGATIVE) 12/09/21 13:59 Urine RBC 11-25 /HPF (0-5) H 12/09/21 13:59 Urine WBC 6-10 /HPF (0-3) H 12/09/21 13:59 Ur Squamous Epith Cells RARE Squamous (<= Few) 12/09/21 13:59 Urine Bacteria Moderate /HPF (None Seen) H 12/09/21 13:59 Urine Casts 3-5 Granular Casts /LPF 12/09/21 13:59 Ur Microscopic Review INDICATED 12/09/21 13:59 Urine Culture Comments NOT INDICATED 12/09/21 13:59 Nasal Adenovirus (PCR) NOT DETECTED 12/09/21 13:59 Nasal B. parapertussis DNA (PCR) NOT DETECTED 12/09/21 13:59 Nasal Coronavir 229E PCR NOT DETECTED 12/09/21 13:59 Nasal Coronavir HKU1 PCR NOT DETECTED 12/09/21 13:59 Nasal Coronavir NL63 PCR NOT DETECTED 12/09/21 13:59 Nasal Coronavir OC43 PCR NOT DETECTED 12/09/21 13:59 Nasal Enterovir/Rhinovir PCR NOT DETECTED 12/09/21 13:59 Nasal Influenza B PCR NOT DETECTED 12/09/21 13:59 Nasal Influenza A PCR NOT DETECTED 12/09/21 13:59 Nasal Parainfluen 1 PCR NOT DETECTED 12/09/21 13:59 Nasal Parainfluen 2 PCR NOT DETECTED 12/09/21 13:59 Nasal Parainfluen 3 PCR NOT DETECTED 12/09/21 13:59 Nasal Parainfluen 4 PCR NOT DETECTED 12/09/21 13:59 Nasal RSV (PCR) NOT DETECTED 12/09/21 13:59 Nasal B.pertussis DNA PCR NOT DETECTED 12/09/21 13:59 Nasal C.pneumoniae (PCR) NOT DETECTED 12/09/21 13:59 [place]anda Human Metapneumo PCR NOT DETECTED 12/09/21 13:59 Nasal M.pneumoniae (PCR) NOT DETECTED 12/09/21 13:59 Nasal SARS-CoV-2 (PCR) NOT DETECTED 12/09/21 13:59 Urine Opiates Screen NEGATIVE (NEGATIVE) 12/09/21 13:59 Ur Oxycodone Screen NEGATIVE (NEGATIVE) 12/09/21 13:59 Urine Methadone Screen NEGATIVE (NEGATIVE) 12/09/21 13:59 Ur Propoxyphene Screen NEGATIVE (NEGATIVE) 12/09/21 13:59 Ur Barbiturates Screen NEGATIVE (NEGATIVE) 12/09/21 13:59 Ur Tricyclics Screen NEGATIVE (NEGATIVE) 12/09/21 13:59 Ur Phencyclidine Scrn NEGATIVE (NEGATIVE) 12/09/21 13:59 Ur Amphetamine Screen NEGATIVE (NEGATIVE) 12/09/21 13:59 U Methamphetamines Scrn NEGATIVE (NEGATIVE) 12/09/21 13:59 U Benzodiazepines Scrn NEGATIVE (NEGATIVE) 12/09/21 13:59 Urine Cocaine Screen NEGATIVE (NEGATIVE) 12/09/21 13:59 U Cannabinoids Screen NEGATIVE (NEGATIVE) 12/09/21 13:59 - Procedures Procedures: Procedures VENOUS CATHETERIZATION NEC (04/17/14) ABX Reporting Has patient been on IV antibiotics over the past 48 hours?: No Current Medications - Current Medications Current Medications: Active Medications Acetaminophen (Acetaminophen 325 Mg Tablet) 650 mg PO Q4HR PRN PRN Reason: Pain 1 to 4, or Fever Last Admin: 12/15/21 13:19 Dose: 650 mg Acetaminophen/Codeine Phosphate (Acetaminophen/Codeine 300 Mg/30 Mg Tablet) 0.5 tab PO QPM PRN PRN Reason: Severe Pain Last Admin: 12/15/21 21:40 Dose: 0.5 tab Apixaban (Apixaban 2.5 Mg Tablet) 2.5 mg PO BID [facility] Last Admin: 12/16/21 09:10 Dose: 2.5 mg Atorvastatin Calcium (Atorvastatin 40 Mg Tablet) 40 mg PO QPM [facility] Last Admin: 12/15/21 21:42 Dose: 40 mg Calcitriol (Calcitriol 0.25 Mcg Capsule) 0.5 mcg PO DAILY [facility] Last Admin: 12/16/21 09:09 Dose: 0.5 mcg Carbidopa/Levodopa (Carbidopa/Levodopa 25 Mg/250 Mg Tablet) 2 tab PO 0200, 0800,1400,2000 [facility] Last Admin: 12/16/21 07:55 Dose: 2 tab Diltiazem HCl (Diltiazem Cd 180 Mg Capsule) 180 mg PO DAILY [facility] Last Admin: 12/16/21 09:09 Dose: 180 mg Divalproex Sodium (Divalproex Er 250 Mg Tablet) 500 mg PO BID [facility] Last Admin: 12/16/21 09:12 Dose: 500 mg Entacapone (Entacapone 200 Mg Tablet) 200 mg PO BID [facility] Last Admin: 12/16/21 09:10 Dose: Not Given Fluticasone Propionate (Fluticasone Nasal [place]) 1 sprays TAWANDA DAILY [facility] Last Admin: 12/16/21 09:12 Dose: 1 spr Sodium Chloride (Normal Saline 0.9%) 1,000 mls @ 83.3 mls/hr IV .Q12H1M [facility] Stop: 12/16/21 14:00 Last Admin: 12/16/21 01:16 Dose: 83.3 mls/hr Insulin Aspart (Insulin Aspart 300 Unit/3 Ml Pen) 1 - 5 unit SUBQ 0800,1200,1700,2100 [facility]; Protocol Last Admin: 12/16/21 07:55 Dose: Not Given Levetiracetam (Levetiracetam 250 Mg Tablet) 500 mg PO DAILY [facility] Last Admin: 12/16/21 09:08 Dose: 500 mg Lidocaine (Lidocaine Patch 5%) 1 patch TOP DAILY PRN PRN Reason: PAIN Last Admin: 12/14/21 14:31 Dose: 1 patch Lorazepam (Lorazepam 2 Mg/Ml Vial) 1 mg IVP Q2H PRN PRN Reason: Seizure Last Admin: 12/10/21 08:37 Dose: 1 mg Magnesium Oxide (Magnesium Oxide 400 Mg Tablet) 800 mg PO DAILYWM [facility] Last Admin: 12/16/21 07:54 Dose: 800 mg Metoprolol Tartrate (Metoprolol 5 Mg/5 Ml Vial) 5 mg IVP Q6H PRN PRN Reason: Tachycardia Multivitamins (Multivitamin Tablet) 1 tab PO DAILYWM [facility] Last Admin: 12/16/21 07:54 Dose: 1 tab Ondansetron HCl (Ondansetron 4 Mg/2 Ml Vial) 4 mg IVP Q6HR PRN PRN Reason: Nausea / Vomiting Pantoprazole Sodium (Pantoprazole 40 Mg Tablet) 40 mg PO BIDAC [facility] Last Admin: 12/16/21 06:19 Dose: 40 mg Senna (Senna 8.6 Mg Tablet) 8.6 mg PO DAILY PRN PRN Reason: Constipation Sodium Chloride (Sodium Chloride Flush 0.9% 10 Ml Syringe) 10 ml IVP PRN PRN PRN Reason: NEEDED PER PROVIDER ORDERS Last Admin: 12/15/21 13:49 Dose: 10 ml Sodium Chloride (Sodium Chloride Flush 0.9% 10 Ml Syringe) 10 ml IVP 0100,0900,1700 [facility] Last Admin: 12/16/21 09:12 Dose: 10 ml Tamsulosin HCl (Tamsulosin 0.4 Mg Capsule) 0.4 mg PO DAILY [facility] Last Admin: 12/16/21 09:09 Dose: 0.4 mg Omeprazole 20 mg PO BID 10/02/13 Atorvastatin Calcium 40 mg PO QPM 01/24/16 Carbidopa/Levodopa [Carbidopa-Levodopa 25-250 Tab] 2 each PO QID 01/05/20 Rivaroxaban [Xarelto] 15 mg PO QDDINNER 07/23/20 Entacapone [Comtan] 200 mg PO BID 04/02/21 Multivit-Min/Folic/Vit K/Lycop [One Daily Men's 50 Plus D3 Tab] 1 each PO DAILY 04/02/21 calcitrioL [Rocaltrol] 0.5 mcg PO DAILY 04/02/21 Insulin Glargine [Lantus Solostar] 8 unit SQ HS 04/23/21 Senna [Senokot] 8.6 mg PO DAILY PRN 04/23/21 Albuterol Sulfate [Proair Hfa Inhaler] 2 puffs INH Q4HR PRN 11/18/21 Fluticasone [Flonase] 2 spray TAWANDA DAILY 11/18/21 diltiaZEM CD [Cardizem Cd] 180 mg PO DAILY 12/09/21
[2021-12-16] MEDS: ACETAMINOPHEN 325 MG TABLET PO PRN (19:40)
[2021-12-16] MEDS: ATORVASTATIN 40 MG TABLET PO SCH (21:10)
[2021-12-17] MEDS: CARBIDOPA/LEVODOPA 25 MG/250 MG TABLET PO SCH ×4 (03:00→19:46)
[2021-12-17] MEDS: PANTOPRAZOLE 40 MG TABLET PO SCH ×2 (05:28→17:16)
[2021-12-17 06:03] LABS: BASOPHILS % (AUTO) 0.3 %; EOSINOPHILS # (AUTO) 0.1 10^3/uL (0.0-0.7); EOSINOPHILS % (AUTO) 1.6 %; HCT - HEMATOCRIT 28.9 % (42.0-52.0); HGB - HEMOGLOBIN 8.9 g/dL (14.0-18.0); LYMPHOCYTES # (AUTO) 1.1 10^3/uL (1.5-3.5); LYMPHOCYTES % (AUTO) 18.6 %; MEAN CORPUSCULAR HEMOGLOBIN 28.9 pg (27.0-31.0); MEAN CORPUSCULAR HGB CONC 30.8 g/dL (32.0-36.0); MEAN CORPUSCULAR VOLUME 93.8 fL (80.0-94.0); MONOCYTES # (AUTO) 0.7 10^3/uL (0.0-1.0); MONOCYTES % (AUTO) 10.7 %; NEUTROPHILS # (AUTO) 4.2 10^3/uL (1.5-6.6); NEUTROPHILS % (AUTO) 68.5 %; PLT - PLATELET COUNT 169 10^3/uL (130-450); RED BLOOD COUNT 3.08 10^6/uL (4.70-6.10); RED CELL DISTRIBUTION WIDTH 14.5 % (12.0-15.0); WHITE BLOOD COUNT 6.1 x10^3/uL (4.8-10.8)
[2021-12-17 06:12] LABS: CALCIUM 9.2 mg/dL (8.5-10.3); CREATININE 3.9 mg/dL (0.6-1.2); MAGNESIUM 1.7 mg/dL (1.7-2.8); POTASSIUM 4.6 mmol/L (3.5-5.0)
[2021-12-17] MEDS: calcitrioL 0.25 MCG CAPSULE PO SCH (09:05)
[2021-12-17] MEDS: DIVALPROEX ER 250 MG TABLET PO SCH ×2 (09:05→21:23)
[2021-12-17] MEDS: MAGNESIUM OXIDE 400 MG TABLET PO SCH (09:05)
[2021-12-17] MEDS: diltiaZEM CD 180 MG CAPSULE PO SCH (09:06)
[2021-12-17] MEDS: MULTIVITAMIN TABLET PO SCH (09:06)
[2021-12-17] MEDS: APIXABAN 2.5 MG TABLET PO SCH ×2 (09:07→21:23)
[2021-12-17] MEDS: levETIRAcetam 250 MG TABLET PO SCH (09:07)
[2021-12-17] MEDS: TAMSULOSIN 0.4 MG CAPSULE PO SCH (09:07)
[2021-12-17] MEDS: INSULIN ASPART 300 UNIT/3 ML PEN SUBQ SCH ×4 (09:08→21:24)
[2021-12-17] MEDS: polyethylene glycoL 3350 17 GM PACKET PO SCH (09:14)
[2021-12-17] MEDS: SODIUM CHLORIDE FLUSH 0.9% 10 ML SYRINGE IVP SCH ×3 (09:14→23:52)
[2021-12-17] MEDS: ENTACAPONE 200 MG TABLET PO SCH ×2 (09:15→21:24)
[2021-12-17] MEDS: FLUTICASONE NASAL SPRAY NAS SCH (09:16)
[2021-12-17] MEDS: ACETAMINOPHEN 325 MG TABLET PO PRN (14:54)
--- NOTE | 2021-12-17 16:04 | PROVIDER PROGRESS NOTE ---
Assessment/Plan - Problem List (1) Seizure Assessment/Plan: He had several witnessed seizures at admission, then another after admission. A CT head was repeated and it showed no acute findings/no changes. Keppra was started after ED provider spoke to neurologist Dr aB. Ativan prn was also ordered for acute seizures. Later Hospitalist spoke to the neurologist Dr. Damian, who recommended adding Depakote. Continue with these new seizure meds combination, but doses may need to be adjusted further if they are causing the increased confusion. (2) Frequent falls Conclusion/Plan: Two days before this ER visit, he had a ground-level fall and even before that Palliative Care notes said that he reported seizures for which he was hospitalized elsewhere and then needed SNF for PT rehab. We learned that he has had multiple frequent falls. He is working with PT and has very poor gait, shuffling, and toe walking. PT recommends discharge to a SNF for further rehab. Also, he cannot return to living alone (given the Parkinsonian gait, frequent falls, intermitent confusion, macular degeneration and KLAWOCK). He will need LTAC placement after that. He has agreed. (3) Confusion Conclusion/Plan: His confusion comes and goes, he is slower to answer, did not understand that he cannot go to his trailor since he has agreed to go to SNF then senior living care. He also takes alot of naps, likely from the use of 2 new antiseizure meds, on top of his Parkinson's disease. Those meds were decreased which helped somewhat. A DMV form for no further aniket has been submitted. He does have a medical DPOA (4) CKD (chronic kidney disease) stage 4, GFR 15-29 ml/min Conclusion/Plan: He has hx of CKD stage IV, he had an AV fistula placed in the right arm. His creatinine has been stable Will try to avoid nephrotoxins. Monitor BMP intermittently. Plan was to reach out to his Product Manager to determine when his dialysis is to be started, but there is no mention of who his Product Manager is in records. In fact, per Palliative Care records, he cancelled his last 2 visits to his Kidney specialist. (5) Parkinson disease Conclusion/Plan: He has hx of Parkinson disease and is on his home meds. PT eval revealed that he has very poor gait, walks slouched over, shuffling gait, toe walks, needs a walker for support, and is also impulsive He needs PT rehab at SNF then long-term care, and is not a candidate to go back and live at home alone with this amount of confusion and ambulation problems and history of frequent falls.. Social work and process planner are working on this, he prefers a [facility] facility (6) Diabetes mellitus Conclusion/Plan: He has DM type 2, and his A1c is 6.4 indicating very good control. He was (supposedly) taking Lantus 8U qhs at home (however I question this, given his confusion). Here he was started on 5U qhs, but that dose caused hypoglycemia. It was decreased to 2U then sopped. Will continue sliding scale insulin coverage, glucose checks, and hypoglycemia protocol. (7) Atrial fibrillation Conclusion/Plan: His HR is controlled, we resumed pt's home meds including his blood thinner when it was OKd by Neurology. Dose if for a pt with CKD. Telemetry to continue (8) KLAWOCK He is nearly completely deaf. He does not have batteries for his hearing aids. Communication is by writing to him but he can verbalize back (9) Hypertension Conclusion/Plan: Stable. We resumed his home meds and ordered holding parameters. Continue vital sign monitoring. (10) Chronic LBP Tylenol and codeine # 3 causd more confusion, He is now getting a lidocaine patch topically (11) GERD (gastroesophageal reflux disease) Conclusion/Plan: He has no complaints, we continued with Protonix as he took at home. - Current Meds Current Meds: Current Medications Generic Name Dose Route Start Last Admin Trade Name Jay PRN Reason Stop Dose Admin Acetaminophen 650 mg 12/09/21 15:00 12/17/21 14:54 Acetaminophen 325 Mg Tablet PO 650 mg Q4HR PRN Administration Pain 1 to 4, or Fever Acetaminophen/Codeine Phosphate 0.5 tab 12/12/21 14:18 12/15/21 21:40 Acetaminophen/Codeine 300 Mg/30 Mg Tablet PO 0.5 tab QPM PRN Administration Severe Pain Apixaban 2.5 mg 12/12/21 21:00 12/17/21 09:07 Apixaban 2.5 Mg Tablet PO 2.5 mg BID PEREZ Administration Atorvastatin Calcium 40 mg 12/10/21 21:00 12/16/21 21:10 Atorvastatin 40 Mg Tablet PO 40 mg QPM PEREZ Administration Calcitriol 0.5 mcg 12/11/21 09:00 12/17/21 09:05 Calcitriol 0.25 Mcg Capsule PO 0.5 mcg DAILY PEREZ Administration Carbidopa/Levodopa 2 tab 12/10/21 15:00 12/17/21 13:39 Carbidopa/Levodopa 25 Mg/250 Mg Tablet PO 2 tab 0200,0800,1400,2000 PEREZ Administration Diltiazem HCl 180 mg 12/11/21 09:00 12/17/21 09:06 Diltiazem Cd 180 Mg Capsule PO 180 mg DAILY PEREZ Administration Divalproex Sodium 500 mg 12/13/21 09:00 12/17/21 09:05 Divalproex Er 250 Mg Tablet PO 500 mg BID PEREZ Administration Entacapone 200 mg 12/10/21 21:00 12/17/21 09:15 Entacapone 200 Mg Tablet PO Not Given BID PEREZ Fluticasone Propionate 1 sprays 12/11/21 09:00 12/17/21 09:16 Fluticasone Nasal Dougherty TAWANDA 1 spr DAILY PEREZ Administration Insulin Aspart 1 - 5 unit 12/09/21 17:00 12/17/21 11:27 Insulin Aspart 300 Unit/3 Ml Pen SUBQ Not Given 0800,1200,1700,2100 [facility] Protocol Levetiracetam 500 mg 12/14/21 09:00 12/17/21 09:07 Levetiracetam 250 Mg Tablet PO 500 mg DAILY PEREZ Administration Lidocaine 1 patch 12/12/21 14:19 12/14/21 14:31 Lidocaine Patch 5% TOP 1 patch DAILY PRN Administration PAIN Lorazepam 1 mg 12/09/21 16:25 12/10/21 08:37 Lorazepam 2 Mg/Ml Vial IVP 1 mg Q2H PRN Administration Seizure Magnesium Oxide 800 mg 12/15/21 09:00 12/17/21 09:05 Magnesium Oxide 400 Mg Tablet PO 800 mg DAILYWM PEREZ Administration Multivitamins 1 tab 12/11/21 08:00 12/17/21 09:06 Multivitamin Tablet PO 1 tab DAILYWM PEREZ Administration Pantoprazole Sodium 40 mg 12/10/21 16:00 12/17/21 05:28 Pantoprazole 40 Mg Tablet PO 40 mg BIDAC PEREZ Administration Polyethylene Glycol 17 gm 12/17/21 09:00 12/17/21 09:14 Polyethylene Glycol 3350 17 Gm Packet PO Not Given DAILY PEREZ Sodium Chloride 10 ml 12/09/21 15:00 12/15/21 13:49 Sodium Chloride Flush 0.9% 10 Ml Syringe IVP 10 ml PRN PRN Administration NEEDED PER PROVIDER ORDERS Sodium Chloride 10 ml 12/09/21 17:00 12/17/21 09:14 Sodium Chloride Flush 0.9% 10 Ml Syringe IVP 10 ml 0100,0900,1700 PEREZ Administration Tamsulosin HCl 0.4 mg 12/11/21 09:00 12/17/21 09:07 Tamsulosin 0.4 Mg Capsule PO 0.4 mg DAILY PEREZ Administration - Lab Result Fish Bone Diagrams: 12/19/21 04:46 12/18/21 06:15 Subjective - Subjective Patient Reports: Resting Comfortably Nursing Reports: Other (V anusha weak, sleepy, able to feed himself) Objective Vital Signs: Vital Signs - 24 hr 12/16/21 12/16/21 12/16/21 16:26 20:37 23:29 Temperature 36.4 C L 36.6 C 37.0 C Heart Rate [ 77 59 L 66 Brachial] Respiratory 16 18 18 Rate Blood Pressure 122/62 118/69 111/55 L [Left Brachial artery] O2 Saturation 98 100 100 12/17/21 12/17/21 12/17/21 05:53 08:08 13:22 Temperature 36.5 C 36.7 C 36.5 C Heart Rate [ 75 78 84 Brachial] Respiratory 18 18 16 Rate Blood Pressure 137/60 H 136/67 H 148/86 H [Left Brachial artery] O2 Saturation 98 97 100 12/17/21 15:48 Temperature 36.3 C L Heart Rate [ 49 L Brachial] Respiratory 16 Rate Blood Pressure 116/71 [Left Brachial artery] O2 Saturation 99 Oxygen O2 Source Room air I&O (Last 24 Hrs): Intake and Output Totals x24h 12/15/21 12/16/21 12/17/21 23:59 23:59 23:59 Intake Total 1000 3013.785 540 Output Total 1300 1050 800 Balance -300 1963.785 -260 General: Alert, No acute distress, Other (Thin elederly male) HEENT: Atraumatic, Mucous membr. moist/pink Neuro: Alert, Other (Lethargic, slow speech, has lip smacking, completely deaf) Cardiovascular: Regular rate Respiratory: No respiratory distress Abdomen: Soft Extremities: No clubbing, No edema, No tenderness/swelling - Results Results: Laboratory Results WBC 6.1 x10^3/uL (4.8-10.8) 12/17/21 05:27 RBC 3.08 10^6/uL (4.70-6.10) L 12/17/21 05:27 Hgb 8.9 g/dL (14.0-18.0) L 12/17/21 05:27 Hct 28.9 % (42.0-52.0) L 12/17/21 05:27 MCV 93.8 fL (80.0-94.0) 12/17/21 05:27 MCH 28.9 pg (27.0-31.0) 12/17/21 05:27 MCHC 30.8 g/dL (32.0-36.0) L 12/17/21 05:27 RDW 14.5 % (12.0-15.0) 12/17/21 05:27 Plt Count 169 10^3/uL (130-450) 12/17/21 05:27 MPV 12.0 fL (7.4-11.4) H 12/17/21 05:27 Neut # (Auto) 4.2 10^3/uL (1.5-6.6) 12/17/21 05:27 Lymph # (Auto) 1.1 10^3/uL (1.5-3.5) L 12/17/21 05:27 [place] # (Auto) 0.7 10^3/uL (0.0-1.0) 12/17/21 05:27 Eos # (Auto) 0.1 10^3/uL (0.0-0.7) 12/17/21 05:27 Baso # (Auto) 0.0 10^3/uL (0.0-0.1) 12/17/21 05:27 Absolute Nucleated RBC 0.00 x10^3/uL 12/17/21 05:27 Nucleated RBC % 0.0 /100WBC 12/17/21 05:27 APTT 28.1 secs (24.9-33.3) 12/10/21 09:50 Sodium 139 mmol/L (135-145) 12/17/21 05:27 Potassium 4.6 mmol/L (3.5-5.0) 12/17/21 05:27 Chloride 109 mmol/L (101-111) 12/17/21 05:27 Carbon Dioxide 21 mmol/L (21-32) 12/17/21 05:27 Anion Gap 9.0 (6-13) 12/17/21 05:27 BUN 50 mg/dL (6-20) H 12/17/21 05:27 Creatinine 3.9 mg/dL (0.6-1.2) H 12/17/21 05:27 Estimated GFR (MDRD) 15 (>89) L 12/17/21 05:27 Glucose 108 mg/dL (70-100) H 12/17/21 05:27 Estimat Average Glucose 137 mg/dL (70-100) H 12/10/21 04:35 Hemoglobin A1c % 6.4 % (4.27-6.07) H 12/10/21 04:35 Calcium 9.2 mg/dL (8.5-10.3) 12/17/21 05:27 Phosphorus 4.1 mg/dL (2.5-4.6) 12/16/21 05:54 Magnesium 1.7 mg/dL (1.7-2.8) 12/17/21 05:27 Total Bilirubin 1.8 mg/dL (0.2-1.0) H 12/09/21 12:56 AST 13 IU/L (10-42) 12/09/21 12:56 ALT < 10 IU/L (10-60) L 12/09/21 12:56 Alkaline Phosphatase 60 IU/L (42-121) 12/09/21 12:56 Total Creatine Kinase 51 IU/L (22-269) 12/09/21 12:56 Troponin I High Sens 33.5 ng/L (2.3-19.7) H* 12/09/21 19:01 Total Protein 7.4 g/dL (6.7-8.2) 12/09/21 12:56 Albumin 4.1 g/dL (3.2-5.5) 12/09/21 12:56 Globulin 3.3 g/dL (2.1-4.2) 12/09/21 12:56 Albumin/Globulin Ratio 1.2 (1.0-2.2) 12/09/21 12:56 Lipase 35 U/L (22-51) 12/09/21 12:56 Urine Color YELLOW 12/09/21 13:59 Urine Clarity HAZY (CLEAR) 12/09/21 13:59 Urine pH 5.5 PH (5.0-7.5) 12/09/21 13:59 Ur Specific [place] >=1.030 (1.002-1.030) H 12/09/21 13:59 Urine Protein >=300 mg/dL (NEGATIVE) H 12/09/21 13:59 Urine Glucose (UA) NEGATIVE mg/dL (NEGATIVE) 12/09/21 13:59 Urine Ketones NEGATIVE mg/dL (NEGATIVE) 12/09/21 13:59 Urine Occult Blood MODERATE (NEGATIVE) H 12/09/21 13:59 Urine Nitrite NEGATIVE (NEGATIVE) 12/09/21 13:59 Urine Bilirubin NEGATIVE (NEGATIVE) 12/09/21 13:59 Urine Urobilinogen 0.2 (NORMAL) E.U./dL (NORMAL) 12/09/21 13:59 Ur Leukocyte Esterase NEGATIVE (NEGATIVE) 12/09/21 13:59 Urine RBC 11-25 /HPF (0-5) H 12/09/21 13:59 Urine WBC 6-10 /HPF (0-3) H 12/09/21 13:59 Ur Squamous Epith Cells RARE Squamous (<= Few) 12/09/21 13:59 Urine Bacteria Moderate /HPF (None Seen) H 12/09/21 13:59 Urine Casts 3-5 Granular Casts /LPF 12/09/21 13:59 Ur Microscopic Review INDICATED 12/09/21 13:59 Urine Culture Comments NOT INDICATED 12/09/21 13:59 Nasal Adenovirus (PCR) NOT DETECTED 12/09/21 13:59 Nasal B. parapertussis DNA (PCR) NOT DETECTED 12/09/21 13:59 Nasal Coronavir 229E PCR NOT DETECTED 12/09/21 13:59 Nasal Coronavir HKU1 PCR NOT DETECTED 12/09/21 13:59 Nasal Coronavir NL63 PCR NOT DETECTED 12/09/21 13:59 Nasal Coronavir OC43 PCR NOT DETECTED 12/09/21 13:59 Nasal Enterovir/Rhinovir PCR NOT DETECTED 12/09/21 13:59 Nasal Influenza B PCR NOT DETECTED 12/09/21 13:59 Nasal Influenza A PCR NOT DETECTED 12/09/21 13:59 Nasal Parainfluen 1 PCR NOT DETECTED 12/09/21 13:59 Nasal Parainfluen 2 PCR NOT DETECTED 12/09/21 13:59 Nasal Parainfluen 3 PCR NOT DETECTED 12/09/21 13:59 Nasal Parainfluen 4 PCR NOT DETECTED 12/09/21 13:59 Nasal RSV (PCR) NOT DETECTED 12/09/21 13:59 Nasal B.pertussis DNA PCR NOT DETECTED 12/09/21 13:59 Nasal C.pneumoniae (PCR) NOT DETECTED 12/09/21 13:59 Tawanda Human Metapneumo PCR NOT DETECTED 12/09/21 13:59 Nasal M.pneumoniae (PCR) NOT DETECTED 12/09/21 13:59 Nasal SARS-CoV-2 (PCR) NOT DETECTED 12/09/21 13:59 Urine Opiates Screen NEGATIVE (NEGATIVE) 12/09/21 13:59 Ur Oxycodone Screen NEGATIVE (NEGATIVE) 12/09/21 13:59 Urine Methadone Screen NEGATIVE (NEGATIVE) 12/09/21 13:59 Ur Propoxyphene Screen NEGATIVE (NEGATIVE) 12/09/21 13:59 Ur Barbiturates Screen NEGATIVE (NEGATIVE) 12/09/21 13:59 Ur Tricyclics Screen NEGATIVE (NEGATIVE) 12/09/21 13:59 Ur Phencyclidine Scrn NEGATIVE (NEGATIVE) 12/09/21 13:59 Ur Amphetamine Screen NEGATIVE (NEGATIVE) 12/09/21 13:59 U Methamphetamines Scrn NEGATIVE (NEGATIVE) 12/09/21 13:59 U Benzodiazepines Scrn NEGATIVE (NEGATIVE) 12/09/21 13:59 Urine Cocaine Screen NEGATIVE (NEGATIVE) 12/09/21 13:59 U Cannabinoids Screen NEGATIVE (NEGATIVE) 12/09/21 13:59 - Procedures Procedures: Procedures VENOUS CATHETERIZATION NEC (04/17/14)
[2021-12-17] MEDS: ATORVASTATIN 40 MG TABLET PO SCH (21:23)
[2021-12-17] MEDS: ACETAMINOPHEN/CODEINE 300 MG/30 MG TABLET PO PRN (21:23)
[2021-12-18] MEDS: CARBIDOPA/LEVODOPA 25 MG/250 MG TABLET PO SCH ×4 (02:42→21:21)
[2021-12-18] MEDS: PANTOPRAZOLE 40 MG TABLET PO SCH ×2 (06:30→15:33)
[2021-12-18 06:44] LABS: BASOPHILS % (AUTO) 0.6 %; EOSINOPHILS # (AUTO) 0.1 10^3/uL (0.0-0.7); EOSINOPHILS % (AUTO) 2.2 %; HCT - HEMATOCRIT 30.8 % (42.0-52.0); HGB - HEMOGLOBIN 9.5 g/dL (14.0-18.0); LYMPHOCYTES # (AUTO) 1.2 10^3/uL (1.5-3.5); LYMPHOCYTES % (AUTO) 23.8 %; MEAN CORPUSCULAR HEMOGLOBIN 28.9 pg (27.0-31.0); MEAN CORPUSCULAR HGB CONC 30.8 g/dL (32.0-36.0); MEAN CORPUSCULAR VOLUME 93.6 fL (80.0-94.0); MEAN PLATELET VOLUME 12.2 fL (7.4-11.4); MONOCYTES # (AUTO) 0.5 10^3/uL (0.0-1.0); MONOCYTES % (AUTO) 10.2 %; NEUTROPHILS # (AUTO) 3.1 10^3/uL (1.5-6.6); NEUTROPHILS % (AUTO) 62.6 %; PLT - PLATELET COUNT 188 10^3/uL (130-450); RED BLOOD COUNT 3.29 10^6/uL (4.70-6.10); RED CELL DISTRIBUTION WIDTH 14.5 % (12.0-15.0)
[2021-12-18 07:01] LABS: CALCIUM 9.3 mg/dL (8.5-10.3); CREATININE 3.8 mg/dL (0.6-1.2); MAGNESIUM 1.7 mg/dL (1.7-2.8); POTASSIUM 4.5 mmol/L (3.5-5.0)
[2021-12-18] MEDS: MULTIVITAMIN TABLET PO SCH (08:59)
[2021-12-18] MEDS: INSULIN ASPART 300 UNIT/3 ML PEN SUBQ SCH ×4 (08:59→21:23)
[2021-12-18] MEDS: levETIRAcetam 250 MG TABLET PO SCH (08:59)
[2021-12-18] MEDS: calcitrioL 0.25 MCG CAPSULE PO SCH (08:59)
[2021-12-18] MEDS: diltiaZEM CD 180 MG CAPSULE PO SCH (09:00)
[2021-12-18] MEDS: SENNA 8.6 MG TABLET PO PRN (09:00)
[2021-12-18] MEDS: TAMSULOSIN 0.4 MG CAPSULE PO SCH (09:00)
[2021-12-18] MEDS: MAGNESIUM OXIDE 400 MG TABLET PO SCH (09:00)
[2021-12-18] MEDS: DIVALPROEX ER 250 MG TABLET PO SCH ×2 (09:00→21:21)
[2021-12-18] MEDS: APIXABAN 2.5 MG TABLET PO SCH ×2 (09:00→21:21)
[2021-12-18] MEDS: ENTACAPONE 200 MG TABLET PO SCH ×2 (09:01→21:22)
[2021-12-18] MEDS: SODIUM CHLORIDE FLUSH 0.9% 10 ML SYRINGE IVP SCH ×2 (09:01→16:51)
[2021-12-18] MEDS: FLUTICASONE NASAL SPRAY NAS SCH (09:01)
[2021-12-18] MEDS: polyethylene glycoL 3350 17 GM PACKET PO SCH (09:02)
--- NOTE | 2021-12-18 17:26 | PROVIDER PROGRESS NOTE ---
Assessment/Plan - Problem List (1) Seizure Assessment/Plan: He had several witnessed seizures at admission, then another after admission. A CT head was repeated and it showed no acute findings/no changes. Keppra was started after ED provider spoke to neurologist Dr Ba. Ativan prn was also ordered for acute seizures. Later Hospitalist spoke to the neurologist Dr. Damian, who recommended adding Depakote. Continue with these new seizure meds combination, but doses may need to be adjusted further if they are causing the increased confusion. (2) Frequent falls Conclusion/Plan: Two days before this ER visit, he had a ground-level fall and even before that Palliative Care notes said that he reported seizures for which he was hospitalized elsewhere and then needed SNF for PT rehab. We learned that he has had multiple frequent falls. He is working with PT and has very poor gait, shuffling, and toe walking. PT recommends discharge to a SNF for further rehab. Also, he cannot return to living alone (given the Parkinsonian gait, frequent falls, intermittent confusion, poor vision from macular degeneration and SHOSHONE-PAIUTE). He will need LTAC placement after that. He has agreed. (3) Confusion Conclusion/Plan: His confusion comes and goes, he is slower to answer, did not understand that he cannot go to his trailor since he has agreed to go to SNF then intermediate care. He also takes alot of naps, likely from the use of 2 new antiseizure meds, on top of his Parkinson's disease. Those meds were decreased which helped somewhat. A DMV form for no further aniket has been submitted. I answered alot of his questions today about why he can no longer drive and that no guns are allowed at nursing homes. He does have a medical DPOA (4) CKD (chronic kidney disease) stage 4, GFR 15-29 ml/min Conclusion/Plan: He has hx of CKD stage IV, he had an AV fistula placed in the right arm. His creatinine has been stable Will try to avoid nephrotoxins. Monitor BMP intermittently. Plan was to reach out to his Manager Of Warehouse to determine when his dialysis is to be started, but there is no mention of who his Manager Of Warehouse is in records. In fact, per Palliative Care records, he cancelled his last 2 visits to his Kidney specialist. (5) Parkinson disease Conclusion/Plan: He has hx of Parkinson disease and is on his home meds. PT anup revealed that he has very poor gait, walks slouched over, shuffling gait, toe walks, needs a walker for support, and is also impulsive He needs PT rehab at SNF then long-term care, and is not a candidate to go back and live at home alone with this amount of confusion and ambulation problems and history of frequent falls.. Social work and tagman are working on this, he prefers a PA facility (6) Diabetes mellitus Conclusion/Plan: He has DM type 2, and his A1c is 6.4 indicating very good control. He was (supposedly) taking Lantus 8U qhs at home (however I question this, given his confusion). Here he was started on 5U qhs, but that dose caused hypoglycemia. It was decreased to 2U then sopped. Will continue sliding scale insulin coverage, glucose checks, and hypoglycemia protocol. (7) Atrial fibrillation Conclusion/Plan: His HR is controlled, we resumed pt's home meds including his blood thinner when it was OKd by Neurology. Dose if for a pt with CKD. 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 He does not have batteries for his hearing aids. Communication is by writing to him but he can verbalize back (9) Hypertension Conclusion/Plan: Stable. We resumed his home meds and ordered holding parameters. Continue vital sign monitoring. (10) Chronic LBP Tylenol and codeine # 3 causd more confusion, He is now getting a lidocaine patch topically (11) GERD (gastroesophageal reflux disease) Conclusion/Plan: He has no complaints, we continued with Protonix as he took at home. - Current Meds Current Meds: Current Medications Generic Name Dose Route Start Last Admin Trade Name Freq PRN Reason Stop Dose Admin Acetaminophen 650 mg 12/09/21 15:00 12/17/21 14:54 Acetaminophen 325 Mg Tablet PO 650 mg Q4HR PRN Administration Pain 1 to 4, or Fever Acetaminophen/Codeine Phosphate 0.5 tab 12/12/21 14:18 12/17/21 21:23 Acetaminophen/Codeine 300 Mg/30 Mg Tablet PO 0.5 tab QPM PRN Administration Severe Pain Apixaban 2.5 mg 12/12/21 21:00 12/18/21 09:00 Apixaban 2.5 Mg Tablet PO 2.5 mg BID PEREZ Administration Atorvastatin Calcium 40 mg 12/10/21 21:00 12/17/21 21:23 Atorvastatin 40 Mg Tablet PO 40 mg QPM PEREZ Administration Calcitriol 0.5 mcg 12/11/21 09:00 12/18/21 08:59 Calcitriol 0.25 Mcg Capsule PO 0.5 mcg DAILY PEREZ Administration Carbidopa/Levodopa 2 tab 12/10/21 15:00 12/18/21 14:49 Carbidopa/Levodopa 25 Mg/250 Mg Tablet PO 2 tab 0200,0800,1400,2000 PEREZ Administration Diltiazem HCl 180 mg 12/11/21 09:00 12/18/21 09:00 Diltiazem Cd 180 Mg Capsule PO 180 mg DAILY PEREZ Administration Divalproex Sodium 500 mg 12/13/21 09:00 12/18/21 09:00 Divalproex Er 250 Mg Tablet PO 500 mg BID PEREZ Administration Entacapone 200 mg 12/10/21 21:00 12/18/21 09:01 Entacapone 200 Mg Tablet PO Not Given BID [facility] Fluticasone Propionate 1 sprays 12/11/21 09:00 12/18/21 09:01 Fluticasone Nasal [place] TAWANDA 1 spr DAILY PEREZ Administration Insulin Aspart 1 - 5 unit 12/09/21 17:00 12/18/21 16:47 Insulin Aspart 300 Unit/3 Ml Pen SUBQ 1 unit 0800,1200,1700,2100 PEREZ Administration Protocol Levetiracetam 500 mg 12/14/21 09:00 12/18/21 08:59 Levetiracetam 250 Mg Tablet PO 500 mg DAILY PEREZ Administration Lidocaine 1 patch 12/12/21 14:19 12/14/21 14:31 Lidocaine Patch 5% TOP 1 patch DAILY PRN Administration PAIN Lorazepam 1 mg 12/09/21 16:25 12/10/21 08:37 Lorazepam 2 Mg/Ml Vial IVP 1 mg Q2H PRN Administration Seizure Magnesium Oxide 800 mg 12/15/21 09:00 12/18/21 09:00 Magnesium Oxide 400 Mg Tablet PO 800 mg DAILYWM PREEZ Administration Multivitamins 1 tab 12/11/21 08:00 12/18/21 08:59 Multivitamin Tablet PO 1 tab DAILYWM PEREZ Administration Pantoprazole Sodium 40 mg 12/10/21 16:00 12/18/21 15:33 Pantoprazole 40 Mg Tablet PO 40 mg BIDAC PEREZ Administration Polyethylene Glycol 17 gm 12/17/21 09:00 12/18/21 09:02 Polyethylene Glycol 3350 17 Gm Packet PO Not Given DAILY PEREZ Senna 8.6 mg 12/10/21 14:29 12/18/21 09:00 Senna 8.6 Mg Tablet PO 8.6 mg DAILY PRN Administration Constipation Sodium Chloride 10 ml 12/09/21 15:00 12/15/21 13:49 Sodium Chloride Flush 0.9% 10 Ml Syringe IVP 10 ml PRN PRN Administration NEEDED PER PROVIDER ORDERS Sodium Chloride 10 ml 12/09/21 17:00 12/18/21 16:51 Sodium Chloride Flush 0.9% 10 Ml Syringe IVP 10 ml 0100,0900,1700 PEREZ Administration Tamsulosin HCl 0.4 mg 12/11/21 09:00 12/18/21 09:00 Tamsulosin 0.4 Mg Capsule PO 0.4 mg DAILY PEREZ Administration - Lab Result Fish Bone Diagrams: 12/19/21 04:46 12/18/21 06:15 Subjective - Subjective Patient Reports: Resting Comfortably, No Complaints Objective Vital Signs: Vital Signs - 24 hr 12/17/21 12/17/21 12/18/21 20:49 23:35 06:20 Temperature 36.5 C 36.5 C 36.5 C Heart Rate [ 65 75 61 Brachial] Respiratory 18 16 17 Rate Blood Pressure 145/65 H 154/78 H 130/62 [Left Brachial artery] O2 Saturation 100 99 98 12/18/21 12/18/21 12/18/21 07:21 12:04 15:13 Temperature 36.8 C 36.4 C L 37.3 C Heart Rate [ 66 72 64 Brachial] Respiratory 16 18 15 Rate Blood Pressure 120/64 124/60 132/70 H [Left Brachial artery] O2 Saturation 99 99 100 Oxygen O2 Source Room air I&O (Last 24 Hrs): Intake and Output Totals x24h 12/16/21 12/17/21 12/18/21 23:59 23:59 23:59 Intake Total 3013.785 980 280 Output Total 1050 1850 1400 Balance 1963.785 -870 -1120 General: Alert, No acute distress HEENT: Mucous membr. moist/pink Neck: Supple Neuro: Alert, Other (Lip smacking, slow speech, poor vision and SHOSHONE-PAIUTE.) Cardiovascular: Regular rate Respiratory: No respiratory distress Abdomen: Soft Extremities: No edema, No tenderness/swelling - Results Results: Laboratory Results WBC 5.0 x10^3/uL (4.8-10.8) 12/18/21 06:15 RBC 3.29 10^6/uL (4.70-6.10) L 12/18/21 06:15 Hgb 9.5 g/dL (14.0-18.0) L 12/18/21 06:15 Hct 30.8 % (42.0-52.0) L 12/18/21 06:15 MCV 93.6 fL (80.0-94.0) 12/18/21 06:15 MCH 28.9 pg (27.0-31.0) 12/18/21 06:15 MCHC 30.8 g/dL (32.0-36.0) L 12/18/21 06:15 RDW 14.5 % (12.0-15.0) 12/18/21 06:15 Plt Count 188 10^3/uL (130-450) 12/18/21 06:15 MPV 12.2 fL (7.4-11.4) H 12/18/21 06:15 Neut # (Auto) 3.1 10^3/uL (1.5-6.6) 12/18/21 06:15 Lymph # (Auto) 1.2 10^3/uL (1.5-3.5) L 12/18/21 06:15 [place] # (Auto) 0.5 10^3/uL (0.0-1.0) 12/18/21 06:15 Eos # (Auto) 0.1 10^3/uL (0.0-0.7) 12/18/21 06:15 Baso # (Auto) 0.0 10^3/uL (0.0-0.1) 12/18/21 06:15 Absolute Nucleated RBC 0.00 x10^3/uL 12/18/21 06:15 Nucleated RBC % 0.0 /100WBC 12/18/21 06:15 APTT 28.1 secs (24.9-33.3) 12/10/21 09:50 Sodium 138 mmol/L (135-145) 12/18/21 06:15 Potassium 4.5 mmol/L (3.5-5.0) 12/18/21 06:15 Chloride 108 mmol/L (101-111) 12/18/21 06:15 Carbon Dioxide 18 mmol/L (21-32) L 12/18/21 06:15 Anion Gap 12.0 (6-13) 12/18/21 06:15 BUN 50 mg/dL (6-20) H 12/18/21 06:15 Creatinine 3.8 mg/dL (0.6-1.2) H 12/18/21 06:15 Estimated GFR (MDRD) 16 (>89) L 12/18/21 06:15 Glucose 126 mg/dL (70-100) H 12/18/21 06:15 Estimat Average Glucose 137 mg/dL (70-100) H 12/10/21 04:35 Hemoglobin A1c % 6.4 % (4.27-6.07) H 12/10/21 04:35 Calcium 9.3 mg/dL (8.5-10.3) 12/18/21 06:15 Phosphorus 4.1 mg/dL (2.5-4.6) 12/16/21 05:54 Magnesium 1.7 mg/dL (1.7-2.8) 12/18/21 06:15 Total Bilirubin 1.8 mg/dL (0.2-1.0) H 12/09/21 12:56 AST 13 IU/L (10-42) 12/09/21 12:56 ALT < 10 IU/L (10-60) L 12/09/21 12:56 Alkaline Phosphatase 60 IU/L (42-121) 12/09/21 12:56 Total Creatine Kinase 51 IU/L (22-269) 12/09/21 12:56 Troponin I High Sens 33.5 ng/L (2.3-19.7) H* 12/09/21 19:01 Total Protein 7.4 g/dL (6.7-8.2) 12/09/21 12:56 Albumin 4.1 g/dL (3.2-5.5) 12/09/21 12:56 Globulin 3.3 g/dL (2.1-4.2) 12/09/21 12:56 Albumin/Globulin Ratio 1.2 (1.0-2.2) 12/09/21 12:56 Lipase 35 U/L (22-51) 12/09/21 12:56 Urine Color YELLOW 12/09/21 13:59 Urine Clarity HAZY (CLEAR) 12/09/21 13:59 Urine pH 5.5 PH (5.0-7.5) 12/09/21 13:59 Ur Specific [place] >=1.030 (1.002-1.030) H 12/09/21 13:59 Urine Protein >=300 mg/dL (NEGATIVE) H 12/09/21 13:59 Urine Glucose (UA) NEGATIVE mg/dL (NEGATIVE) 12/09/21 13:59 Urine Ketones NEGATIVE mg/dL (NEGATIVE) 12/09/21 13:59 Urine Occult Blood MODERATE (NEGATIVE) H 12/09/21 13:59 Urine Nitrite NEGATIVE (NEGATIVE) 12/09/21 13:59 Urine Bilirubin NEGATIVE (NEGATIVE) 12/09/21 13:59 Urine Urobilinogen 0.2 (NORMAL) E.U./dL (NORMAL) 12/09/21 13:59 Ur Leukocyte Esterase NEGATIVE (NEGATIVE) 12/09/21 13:59 Urine RBC 11-25 /HPF (0-5) H 12/09/21 13:59 Urine WBC 6-10 /HPF (0-3) H 12/09/21 13:59 Ur Squamous Epith Cells RARE Squamous (<= Few) 12/09/21 13:59 Urine Bacteria Moderate /HPF (None Seen) H 12/09/21 13:59 Urine Casts 3-5 Granular Casts /LPF 12/09/21 13:59 Ur Microscopic Review INDICATED 12/09/21 13:59 Urine Culture Comments NOT INDICATED 12/09/21 13:59 Nasal Adenovirus (PCR) NOT DETECTED 12/09/21 13:59 Nasal B. parapertussis DNA (PCR) NOT DETECTED 12/09/21 13:59 Nasal Coronavir 229E PCR NOT DETECTED 12/09/21 13:59 Nasal Coronavir HKU1 PCR NOT DETECTED 12/09/21 13:59 Nasal Coronavir NL63 PCR NOT DETECTED 12/09/21 13:59 Nasal Coronavir OC43 PCR NOT DETECTED 12/09/21 13:59 Nasal Enterovir/Rhinovir PCR NOT DETECTED 12/09/21 13:59 Nasal Influenza B PCR NOT DETECTED 12/09/21 13:59 Nasal Influenza A PCR NOT DETECTED 12/09/21 13:59 Nasal Parainfluen 1 PCR NOT DETECTED 12/09/21 13:59 Nasal Parainfluen 2 PCR NOT DETECTED 12/09/21 13:59 Nasal Parainfluen 3 PCR NOT DETECTED 12/09/21 13:59 Nasal Parainfluen 4 PCR NOT DETECTED 12/09/21 13:59 Nasal RSV (PCR) NOT DETECTED 12/09/21 13:59 Nasal B.pertussis DNA PCR NOT DETECTED 12/09/21 13:59 Nasal C.pneumoniae (PCR) NOT DETECTED 12/09/21 13:59 [place] Human Metapneumo PCR NOT DETECTED 12/09/21 13:59 Nasal M.pneumoniae (PCR) NOT DETECTED 12/09/21 13:59 Nasal SARS-CoV-2 (PCR) NOT DETECTED 12/09/21 13:59 Urine Opiates Screen NEGATIVE (NEGATIVE) 12/09/21 13:59 Ur Oxycodone Screen NEGATIVE (NEGATIVE) 12/09/21 13:59 Urine Methadone Screen NEGATIVE (NEGATIVE) 12/09/21 13:59 Ur Propoxyphene Screen NEGATIVE (NEGATIVE) 12/09/21 13:59 Ur Barbiturates Screen NEGATIVE (NEGATIVE) 12/09/21 13:59 Ur Tricyclics Screen NEGATIVE (NEGATIVE) 12/09/21 13:59 Ur Phencyclidine Scrn NEGATIVE (NEGATIVE) 12/09/21 13:59 Ur Amphetamine Screen NEGATIVE (NEGATIVE) 12/09/21 13:59 U Methamphetamines Scrn NEGATIVE (NEGATIVE) 12/09/21 13:59 U Benzodiazepines Scrn NEGATIVE (NEGATIVE) 12/09/21 13:59 Urine Cocaine Screen NEGATIVE (NEGATIVE) 12/09/21 13:59 U Cannabinoids Screen NEGATIVE (NEGATIVE) 12/09/21 13:59 - Procedures Procedures: Procedures [facility] (04/17/14)
[2021-12-18] MEDS: ATORVASTATIN 40 MG TABLET PO SCH (21:21)
[2021-12-19] MEDS: SODIUM CHLORIDE FLUSH 0.9% 10 ML SYRINGE IVP SCH ×3 (02:38→17:33)
[2021-12-19] MEDS: CARBIDOPA/LEVODOPA 25 MG/250 MG TABLET PO SCH ×4 (02:38→21:47)
[2021-12-19] MEDS: PANTOPRAZOLE 40 MG TABLET PO SCH ×2 (04:52→17:32)
[2021-12-19 04:56] LABS: BASOPHILS % (AUTO) 0.5 %; EOSINOPHILS # (AUTO) 0.1 10^3/uL (0.0-0.7); EOSINOPHILS % (AUTO) 1.7 %; HCT - HEMATOCRIT 30.3 % (42.0-52.0); HGB - HEMOGLOBIN 9.7 g/dL (14.0-18.0); LYMPHOCYTES # (AUTO) 1.2 10^3/uL (1.5-3.5); LYMPHOCYTES % (AUTO) 19.8 %; MEAN CORPUSCULAR HEMOGLOBIN 29.9 pg (27.0-31.0); MEAN CORPUSCULAR VOLUME 93.5 fL (80.0-94.0); MEAN PLATELET VOLUME 11.8 fL (7.4-11.4); MONOCYTES # (AUTO) 0.6 10^3/uL (0.0-1.0); MONOCYTES % (AUTO) 10.7 %; NEUTROPHILS # (AUTO) 3.9 10^3/uL (1.5-6.6); PLT - PLATELET COUNT 178 10^3/uL (130-450); RED BLOOD COUNT 3.24 10^6/uL (4.70-6.10); RED CELL DISTRIBUTION WIDTH 14.4 % (12.0-15.0); WHITE BLOOD COUNT 5.8 x10^3/uL (4.8-10.8)
[2021-12-19] MEDS: calcitrioL 0.25 MCG CAPSULE PO SCH (08:45)
[2021-12-19] MEDS: MAGNESIUM OXIDE 400 MG TABLET PO SCH ×2 (08:45→17:32)
[2021-12-19] MEDS: MULTIVITAMIN TABLET PO SCH (08:46)
[2021-12-19] MEDS: diltiaZEM CD 180 MG CAPSULE PO SCH (08:46)
[2021-12-19] MEDS: levETIRAcetam 250 MG TABLET PO SCH (08:46)
[2021-12-19] MEDS: APIXABAN 2.5 MG TABLET PO SCH ×2 (08:46→21:47)
[2021-12-19] MEDS: TAMSULOSIN 0.4 MG CAPSULE PO SCH (08:46)
[2021-12-19] MEDS: DIVALPROEX ER 250 MG TABLET PO SCH ×2 (08:46→21:47)
[2021-12-19] MEDS: polyethylene glycoL 3350 17 GM PACKET PO SCH (08:47)
[2021-12-19] MEDS: INSULIN ASPART 300 UNIT/3 ML PEN SUBQ SCH ×4 (08:47→21:47)
[2021-12-19] MEDS: FLUTICASONE NASAL SPRAY NAS SCH (08:51)
[2021-12-19] MEDS: ENTACAPONE 200 MG TABLET PO SCH ×2 (08:53→21:47)
[2021-12-19] MEDS: ACETAMINOPHEN 325 MG TABLET PO PRN ×3 (11:08→21:49)
--- NOTE | 2021-12-19 18:54 | PROVIDER PROGRESS NOTE ---
Assessment/Plan - Problem List (1) Seizure Assessment/Plan: He had several witnessed seizures at admission, Keppra was started after ED provider spoke to neurologist Dr Ba. There was another seizure after admission. A CT head was repeated and it showed no acute findings/no changes. Ativan prn was given for the acute seizures. Later Hospitalist spoke to the neurologist Dr. Damian, who recommended adding Depakote. Continue with these new seizure meds combination, but doses may need to be adjusted further if they are causing the increased confusion. (2) Frequent falls Conclusion/Plan: Two days before this ER visit, he had a ground-level fall and even before that Palliative Care notes said that he reported seizures for which he was hospitalized elsewhere and then needed SNF for PT rehab. We learned that he has had multiple frequent falls. He is working with PT and has very poor gait, shuffling, and toe walking. PT recommends discharge to a SNF for further rehab. Also, he cannot return to living alone (given the Parkinsonian gait, frequent falls, intermittent confusion, poor vision from macular degeneration and INAJA). He will need LTAC placement after that. He has agreed. (3) Confusion Conclusion/Plan: His confusion comes and goes, he is slower to answer, did not understand that he cannot go to his trailor since he has agreed to go to SNF then correction care. He also takes alot of naps, likely from the use of 2 new antiseizure meds, on top of his Parkinson's disease. Those meds were decreased which helped somewhat. A DMV form for no further aniket has been submitted. I answered alot of his questions yesterday about why he can no longer drive and that no guns are allowed at nursing homes. He does have a medical DPOA (4) CKD (chronic kidney disease) stage 4, GFR 15-29 ml/min Conclusion/Plan: He has hx of CKD stage IV, he had an AV fistula placed in the right arm. His creatinine has been stable Will try to avoid nephrotoxins. Monitor BMP intermittently. Plan was to reach out to his Button Sewing Machine Operator to determine when his dialysis is to be started, but there is no mention of who his Button Sewing Machine Operator is in records. In fact, per Palliative Care records, he cancelled his last 2 visits to his Kidney specialist. (5) Parkinson disease Conclusion/Plan: He has hx of Parkinson disease and is on his home meds. PT anup revealed that he has very poor gait, walks slouched over, shuffling gait, toe walks, needs a walker for support, and is also impulsive He needs PT rehab at SNF then long-term care, and is not a candidate to go back and live at home alone with this amount of confusion and ambulation problems and history of frequent falls.. Social work and spot machine operator are working on this, he prefers a [place] facility (6) Diabetes mellitus Conclusion/Plan: He has DM type 2, and his A1c is 6.4 indicating very good control. He was (supposedly) taking Lantus 8U qhs at home (however I question this, given his confusion). Here he was started on 5U qhs, but that dose caused hypoglycemia. It was decreased to 2U then sopped. Will continue sliding scale insulin coverage, glucose checks, and hypoglycemia protocol. (7) Atrial fibrillation Conclusion/Plan: His HR is controlled, we resumed pt's home meds including his blood thinner when it was OKd by Neurology. Dose if for a pt with CKD. Telemetry to continue (8) INAJA He is nearly completely deaf. He does not have batteries for his hearing aids. Communication is by writing to him but he can verbalize back (9) Hypertension Conclusion/Plan: Stable. We resumed his home meds and ordered holding parameters. Continue vital sign monitoring. (10) Chronic LBP Tylenol and codeine # 3 causd more confusion, He is now getting a lidocaine patch topically (11) GERD (gastroesophageal reflux disease) Conclusion/Plan: He has no complaints, we continued with Protonix as he took at home. - Current Meds Current Meds: Current Medications Generic Name Dose Route Start Last Admin Trade Name Freq PRN Reason Stop Dose Admin Acetaminophen 650 mg 12/09/21 15:00 12/19/21 17:32 Acetaminophen 325 Mg Tablet PO 650 mg Q4HR PRN Administration Pain 1 to 4, or Fever Acetaminophen/Codeine Phosphate 0.5 tab 12/12/21 14:18 12/17/21 21:23 Acetaminophen/Codeine 300 Mg/30 Mg Tablet PO 0.5 tab QPM PRN Administration Severe Pain Apixaban 2.5 mg 12/12/21 21:00 12/19/21 08:46 Apixaban 2.5 Mg Tablet PO 2.5 mg BID PEREZ Administration Atorvastatin Calcium 40 mg 12/10/21 21:00 12/18/21 21:21 Atorvastatin 40 Mg Tablet PO 40 mg QPM PEREZ Administration Calcitriol 0.5 mcg 12/11/21 09:00 12/19/21 08:45 Calcitriol 0.25 Mcg Capsule PO 0.5 mcg DAILY PEREZ Administration Carbidopa/Levodopa 2 tab 12/10/21 15:00 12/19/21 13:30 Carbidopa/Levodopa 25 Mg/250 Mg Tablet PO 2 tab 0200,0800,1400,2000 PEREZ Administration Diltiazem HCl 180 mg 12/11/21 09:00 12/19/21 08:46 Diltiazem Cd 180 Mg Capsule PO 180 mg DAILY PEREZ Administration Divalproex Sodium 500 mg 12/13/21 09:00 12/19/21 08:46 Divalproex Er 250 Mg Tablet PO 500 mg BID PEREZ Administration Entacapone 200 mg 12/10/21 21:00 12/19/21 08:53 Entacapone 200 Mg Tablet PO Not Given BID [facility] Fluticasone Propionate 1 sprays 12/11/21 09:00 12/19/21 08:51 Fluticasone Nasal [place] TAWANDA 1 spr DAILY PEREZ Administration Insulin Aspart 1 - 5 unit 12/09/21 17:00 12/19/21 17:33 Insulin Aspart 300 Unit/3 Ml Pen SUBQ 1 unit 0800,1200,1700,2100 PEREZ Administration Protocol Levetiracetam 500 mg 12/14/21 09:00 12/19/21 08:46 Levetiracetam 250 Mg Tablet PO 500 mg DAILY PEREZ Administration Lidocaine 1 patch 12/12/21 14:19 12/14/21 14:31 Lidocaine Patch 5% TOP 1 patch DAILY PRN Administration PAIN Lorazepam 1 mg 12/09/21 16:25 12/10/21 08:37 Lorazepam 2 Mg/Ml Vial IVP 1 mg Q2H PRN Administration Seizure Magnesium Oxide 400 mg 12/19/21 17:00 12/19/21 17:32 Magnesium Oxide 400 Mg Tablet PO 400 mg BIDWM PEREZ Administration Multivitamins 1 tab 12/11/21 08:00 12/19/21 08:46 Multivitamin Tablet PO 1 tab DAILYWM PEREZ Administration Pantoprazole Sodium 40 mg 12/10/21 16:00 12/19/21 17:32 Pantoprazole 40 Mg Tablet PO 40 mg BIDAC PEREZ Administration Polyethylene Glycol 17 gm 12/17/21 09:00 12/19/21 08:47 Polyethylene Glycol 3350 17 Gm Packet PO 17 gm DAILY PEREZ Administration Senna 8.6 mg 12/10/21 14:29 12/18/21 09:00 Senna 8.6 Mg Tablet PO 8.6 mg DAILY PRN Administration Constipation Sodium Chloride 10 ml 12/09/21 15:00 12/15/21 13:49 Sodium Chloride Flush 0.9% 10 Ml Syringe IVP 10 ml PRN PRN Administration NEEDED PER PROVIDER ORDERS Sodium Chloride 10 ml 12/09/21 17:00 12/19/21 17:33 Sodium Chloride Flush 0.9% 10 Ml Syringe IVP 10 ml 0100,0900,1700 PEREZ Administration Tamsulosin HCl 0.4 mg 12/11/21 09:00 12/19/21 08:46 Tamsulosin 0.4 Mg Capsule PO 0.4 mg DAILY PEREZ Administration - Lab Result Fish Bone Diagrams: 12/19/21 04:46 12/18/21 06:15 - Additional Planning My Orders: My Active Orders 12/19/21 17:00 Magnesium Oxide [Mag Ox] 400 mg PO BIDWM Subjective - Subjective Patient Reports: Resting Comfortably, No Complaints Nursing Reports: Other (Yesterday, he needed alot of help transferring from bed to chair, today he needed less help) Objective Vital Signs: Vital Signs - 24 hr 12/18/21 12/19/21 12/19/21 20:17 00:14 04:49 Temperature 37.3 C 36.4 C L 37.0 C Heart Rate [ 81 64 63 Brachial] Respiratory 17 16 16 Rate Blood Pressure 136/60 H 128/70 129/74 [Left Brachial artery] O2 Saturation 98 97 97 12/19/21 12/19/21 12/19/21 07:38 12:45 15:23 Temperature 36.8 C 36.5 C 36.3 C L Heart Rate [ 77 89 63 Brachial] Respiratory 16 18 18 Rate Blood Pressure 136/73 H 102/69 145/78 H [Left Brachial artery] O2 Saturation 97 98 100 Oxygen O2 Source Room air I&O (Last 24 Hrs): Intake and Output Totals x24h 12/17/21 12/18/21 12/19/21 23:59 23:59 23:59 Intake Total 539 431 6641 Output Total 1850 1850 400 Balance -870 -1370 918 General: Alert, No acute distress HEENT: Atraumatic, Mucous membr. moist/pink Neck: Supple, No JVD Neuro: Alert, Other (Has lip smacking, lethargy, poor vision, INAJA and slow spech.) Cardiovascular: Regular rate Respiratory: No respiratory distress Abdomen: Soft Extremities: No edema, No tenderness/swelling - Results Results: Laboratory Results WBC 5.8 x10^3/uL (4.8-10.8) 12/19/21 04:46 RBC 3.24 10^6/uL (4.70-6.10) L 12/19/21 04:46 Hgb 9.7 g/dL (14.0-18.0) L 12/19/21 04:46 Hct 30.3 % (42.0-52.0) L 12/19/21 04:46 MCV 93.5 fL (80.0-94.0) 12/19/21 04:46 MCH 29.9 pg (27.0-31.0) 12/19/21 04:46 MCHC 32.0 g/dL (32.0-36.0) 12/19/21 04:46 RDW 14.4 % (12.0-15.0) 12/19/21 04:46 Plt Count 178 10^3/uL (130-450) 12/19/21 04:46 MPV 11.8 fL (7.4-11.4) H 12/19/21 04:46 Neut # (Auto) 3.9 10^3/uL (1.5-6.6) 12/19/21 04:46 Lymph # (Auto) 1.2 10^3/uL (1.5-3.5) L 12/19/21 04:46 Rooks # (Auto) 0.6 10^3/uL (0.0-1.0) 12/19/21 04:46 Eos # (Auto) 0.1 10^3/uL (0.0-0.7) 12/19/21 04:46 Baso # (Auto) 0.0 10^3/uL (0.0-0.1) 12/19/21 04:46 Absolute Nucleated RBC 0.00 x10^3/uL 12/19/21 04:46 Nucleated RBC % 0.0 /100WBC 12/19/21 04:46 APTT 28.1 secs (24.9-33.3) 12/10/21 09:50 Sodium 138 mmol/L (135-145) 12/18/21 06:15 Potassium 4.5 mmol/L (3.5-5.0) 12/18/21 06:15 Chloride 108 mmol/L (101-111) 12/18/21 06:15 Carbon Dioxide 18 mmol/L (21-32) L 12/18/21 06:15 Anion Gap 12.0 (6-13) 12/18/21 06:15 BUN 50 mg/dL (6-20) H 12/18/21 06:15 Creatinine 3.8 mg/dL (0.6-1.2) H 12/18/21 06:15 Estimated GFR (MDRD) 16 (>89) L 12/18/21 06:15 Glucose 126 mg/dL (70-100) H 12/18/21 06:15 Estimat Average Glucose 137 mg/dL (70-100) H 12/10/21 04:35 Hemoglobin A1c % 6.4 % (4.27-6.07) H 12/10/21 04:35 Calcium 9.3 mg/dL (8.5-10.3) 12/18/21 06:15 Phosphorus 4.1 mg/dL (2.5-4.6) 12/16/21 05:54 Magnesium 1.6 mg/dL (1.7-2.8) L 12/19/21 04:46 Total Bilirubin 1.8 mg/dL (0.2-1.0) H 12/09/21 12:56 AST 13 IU/L (10-42) 12/09/21 12:56 ALT < 10 IU/L (10-60) L 12/09/21 12:56 Alkaline Phosphatase 60 IU/L (42-121) 12/09/21 12:56 Total Creatine Kinase 51 IU/L (22-269) 12/09/21 12:56 Troponin I High Sens 33.5 ng/L (2.3-19.7) H* 12/09/21 19:01 Total Protein 7.4 g/dL (6.7-8.2) 12/09/21 12:56 Albumin 4.1 g/dL (3.2-5.5) 12/09/21 12:56 Globulin 3.3 g/dL (2.1-4.2) 12/09/21 12:56 Albumin/Globulin Ratio 1.2 (1.0-2.2) 12/09/21 12:56 Lipase 35 U/L (22-51) 12/09/21 12:56 Urine Color YELLOW 12/09/21 13:59 Urine Clarity HAZY (CLEAR) 12/09/21 13:59 Urine pH 5.5 PH (5.0-7.5) 12/09/21 13:59 Ur Specific [place] >=1.030 (1.002-1.030) H 12/09/21 13:59 Urine Protein >=300 mg/dL (NEGATIVE) H 12/09/21 13:59 Urine Glucose (UA) NEGATIVE mg/dL (NEGATIVE) 12/09/21 13:59 Urine Ketones NEGATIVE mg/dL (NEGATIVE) 12/09/21 13:59 Urine Occult Blood MODERATE (NEGATIVE) H 12/09/21 13:59 Urine Nitrite NEGATIVE (NEGATIVE) 12/09/21 13:59 Urine Bilirubin NEGATIVE (NEGATIVE) 12/09/21 13:59 Urine Urobilinogen 0.2 (NORMAL) E.U./dL (NORMAL) 12/09/21 13:59 Ur Leukocyte Esterase NEGATIVE (NEGATIVE) 12/09/21 13:59 Urine RBC 11-25 /HPF (0-5) H 12/09/21 13:59 Urine WBC 6-10 /HPF (0-3) H 12/09/21 13:59 Ur Squamous Epith Cells RARE Squamous (<= Few) 12/09/21 13:59 Urine Bacteria Moderate /HPF (None Seen) H 12/09/21 13:59 Urine Casts 3-5 Granular Casts /LPF 12/09/21 13:59 Ur Microscopic Review INDICATED 12/09/21 13:59 Urine Culture Comments NOT INDICATED 12/09/21 13:59 Nasal Adenovirus (PCR) NOT DETECTED 12/09/21 13:59 Nasal B. parapertussis DNA (PCR) NOT DETECTED 12/09/21 13:59 Nasal Coronavir 229E PCR NOT DETECTED 12/09/21 13:59 Nasal Coronavir HKU1 PCR NOT DETECTED 12/09/21 13:59 Nasal Coronavir NL63 PCR NOT DETECTED 12/09/21 13:59 Nasal Coronavir OC43 PCR NOT DETECTED 12/09/21 13:59 Nasal Enterovir/Rhinovir PCR NOT DETECTED 12/09/21 13:59 Nasal Influenza B PCR NOT DETECTED 12/09/21 13:59 Nasal Influenza A PCR NOT DETECTED 12/09/21 13:59 Nasal Parainfluen 1 PCR NOT DETECTED 12/09/21 13:59 Nasal Parainfluen 2 PCR NOT DETECTED 12/09/21 13:59 Nasal Parainfluen 3 PCR NOT DETECTED 12/09/21 13:59 Nasal Parainfluen 4 PCR NOT DETECTED 12/09/21 13:59 Nasal RSV (PCR) NOT DETECTED 12/09/21 13:59 Nasal B.pertussis DNA PCR NOT DETECTED 12/09/21 13:59 Nasal C.pneumoniae (PCR) NOT DETECTED 12/09/21 13:59 [place] Human Metapneumo PCR NOT DETECTED 12/09/21 13:59 Nasal M.pneumoniae (PCR) NOT DETECTED 12/09/21 13:59 Nasal SARS-CoV-2 (PCR) NOT DETECTED 12/09/21 13:59 Urine Opiates Screen NEGATIVE (NEGATIVE) 12/09/21 13:59 Ur Oxycodone Screen NEGATIVE (NEGATIVE) 12/09/21 13:59 Urine Methadone Screen NEGATIVE (NEGATIVE) 12/09/21 13:59 Ur Propoxyphene Screen NEGATIVE (NEGATIVE) 12/09/21 13:59 Ur Barbiturates Screen NEGATIVE (NEGATIVE) 12/09/21 13:59 Ur Tricyclics Screen NEGATIVE (NEGATIVE) 12/09/21 13:59 Ur Phencyclidine Scrn NEGATIVE (NEGATIVE) 12/09/21 13:59 Ur Amphetamine Screen NEGATIVE (NEGATIVE) 12/09/21 13:59 U Methamphetamines Scrn NEGATIVE (NEGATIVE) 12/09/21 13:59 U Benzodiazepines Scrn NEGATIVE (NEGATIVE) 12/09/21 13:59 Urine Cocaine Screen NEGATIVE (NEGATIVE) 12/09/21 13:59 U Cannabinoids Screen NEGATIVE (NEGATIVE) 12/09/21 13:59 - Procedures Procedures: Procedures [facility] (04/17/14)
[2021-12-19] MEDS: ATORVASTATIN 40 MG TABLET PO SCH (21:47)
[2021-12-20] MEDS: SODIUM CHLORIDE FLUSH 0.9% 10 ML SYRINGE IVP SCH ×3 (00:45→17:14)
[2021-12-20] MEDS: CARBIDOPA/LEVODOPA 25 MG/250 MG TABLET PO SCH ×4 (02:42→20:57)
[2021-12-20] MEDS: PANTOPRAZOLE 40 MG TABLET PO SCH ×2 (06:29→17:13)
[2021-12-20] MEDS: INSULIN ASPART 300 UNIT/3 ML PEN SUBQ SCH ×4 (09:13→20:58)
[2021-12-20] MEDS: FLUTICASONE NASAL SPRAY NAS SCH (09:14)
[2021-12-20] MEDS: polyethylene glycoL 3350 17 GM PACKET PO SCH (09:14)
[2021-12-20] MEDS: calcitrioL 0.25 MCG CAPSULE PO SCH (09:15)
[2021-12-20] MEDS: levETIRAcetam 250 MG TABLET PO SCH (09:15)
[2021-12-20] MEDS: DIVALPROEX ER 250 MG TABLET PO SCH ×2 (09:15→20:56)
[2021-12-20] MEDS: diltiaZEM CD 180 MG CAPSULE PO SCH (09:15)
[2021-12-20] MEDS: TAMSULOSIN 0.4 MG CAPSULE PO SCH (09:16)
[2021-12-20] MEDS: MAGNESIUM OXIDE 400 MG TABLET PO SCH ×2 (09:16→17:13)
[2021-12-20] MEDS: APIXABAN 2.5 MG TABLET PO SCH ×2 (09:16→20:56)
[2021-12-20] MEDS: MULTIVITAMIN TABLET PO SCH (09:16)
[2021-12-20] MEDS: ACETAMINOPHEN 325 MG TABLET PO PRN ×2 (09:16→17:15)
[2021-12-20] MEDS: ENTACAPONE 200 MG TABLET PO SCH ×2 (09:17→20:57)
--- NOTE | 2021-12-20 11:41 | PROVIDER PROGRESS NOTE ---
Assessment/Plan - Problem List (1) Seizure Assessment/Plan: 12/20 pt has no more seizure after he had combination of keppra 500mg daily and 500 Depakote bid. pt is nearly completely deaf. He response to writing. he asked what his discharge plan is, when he can left hospital, and he concerned how to deal with his private trailer. Discussed with nursing home social worker for above issue and the care plan. we will monitor Keppra and depakote serum concentration. (2) Falls at home Conclusion/Plan: pt had multiple frequent falls at home. pt had PT/OT evaluation and treatment. pt is living alone, recommended pt be d/c to SNF for rehab, pt may need LTAC placement as well. consult with nursing home social worker for replacement. fall precaution at hospital (3) Confusion resolved (4) CKD (chronic kidney disease) stage 4, GFR 15-29 ml/min creatinine is stable, at 3.8 on 12/18 lab monitor (5) Diabetes mellitus Conclusion/Plan: good control and his A1c is 6.4 continue slide scale, glucose check, hypoglycemia protocol (6) Atrial fibrillation Conclusion/Plan: HR is controlled, continue Eliquis 2.5 mg bid. (7) Parkinson disease Conclusion/Plan: stable, continue home meds (8) TAZLINA He is nearly completely deaf. Communication is by writing to him but he can verbalize back, continue support to pt. (9) Hypertension Conclusion/Plan: Stable. We resumed his home meds and ordered holding parameters. Continue vital sign monitoring. (10) Chronic LBP continue pain control Will also order a lidocaine patch topically (11) GERD (gastroesophageal reflux disease) we continued with Protonix as he took at home. (12)unsuspended ventricular tachycardia resolved, no more unsuspended and asymptomatic VT (4) Atrial fibrillation Qualifiers: Atrial fibrillation type: longstanding persistent Qualified Code(s): I48.11 - Longstanding persistent atrial fibrillation - Current Meds Current Meds: Current Medications Generic Name Dose Route Start Last Admin Trade Name Freq PRN Reason Stop Dose Admin Acetaminophen 650 mg 12/09/21 15:00 12/20/21 09:16 Acetaminophen 325 Mg Tablet PO 650 mg Q4HR PRN Administration Pain 1 to 4, or Fever Acetaminophen/Codeine Phosphate 0.5 tab 12/12/21 14:18 12/17/21 21:23 Acetaminophen/Codeine 300 Mg/30 Mg Tablet PO 0.5 tab QPM PRN Administration Severe Pain Apixaban 2.5 mg 12/12/21 21:00 12/20/21 09:16 Apixaban 2.5 Mg Tablet PO 2.5 mg BID PEREZ Administration Atorvastatin Calcium 40 mg 12/10/21 21:00 12/19/21 21:47 Atorvastatin 40 Mg Tablet PO 40 mg QPM PEREZ Administration Calcitriol 0.5 mcg 12/11/21 09:00 12/20/21 09:15 Calcitriol 0.25 Mcg Capsule PO 0.5 mcg DAILY PEREZ Administration Carbidopa/Levodopa 2 tab 12/10/21 15:00 12/20/21 09:15 Carbidopa/Levodopa 25 Mg/250 Mg Tablet PO 2 tab 0200,0800,1400,2000 PEREZ Administration Diltiazem HCl 180 mg 12/11/21 09:00 12/20/21 09:15 Diltiazem Cd 180 Mg Capsule PO Not Given DAILY PEREZ Divalproex Sodium 500 mg 12/13/21 09:00 12/20/21 09:15 Divalproex Er 250 Mg Tablet PO 500 mg BID PEREZ Administration Entacapone 200 mg 12/10/21 21:00 12/20/21 09:17 Entacapone 200 Mg Tablet PO Not Given BID PEREZ Fluticasone Propionate 1 sprays 12/11/21 09:00 12/20/21 09:14 Fluticasone Nasal [place] TAWANDA 2 spr DAILY PEREZ Administration Insulin Aspart 1 - 5 unit 12/09/21 17:00 12/20/21 09:13 Insulin Aspart 300 Unit/3 Ml Pen SUBQ 1 unit 0800,1200,1700,2100 PEREZ Administration Protocol Levetiracetam 500 mg 12/14/21 09:00 12/20/21 09:15 Levetiracetam 250 Mg Tablet PO 500 mg DAILY PEREZ Administration Lidocaine 1 patch 12/12/21 14:19 12/14/21 14:31 Lidocaine Patch 5% TOP 1 patch DAILY PRN Administration PAIN Lorazepam 1 mg 12/09/21 16:25 12/10/21 08:37 Lorazepam 2 Mg/Ml Vial IVP 1 mg Q2H PRN Administration Seizure Magnesium Oxide 400 mg 12/19/21 17:00 12/20/21 09:16 Magnesium Oxide 400 Mg Tablet PO 400 mg BIDWM PEREZ Administration Multivitamins 1 tab 12/11/21 08:00 12/20/21 09:16 Multivitamin Tablet PO 1 tab DAILYWM PEREZ Administration Pantoprazole Sodium 40 mg 12/10/21 16:00 12/20/21 06:29 Pantoprazole 40 Mg Tablet PO 40 mg BIDAC PEREZ Administration Polyethylene Glycol 17 gm 12/17/21 09:00 12/20/21 09:14 Polyethylene Glycol 3350 17 Gm Packet PO 17 gm DAILY PEREZ Administration Senna 8.6 mg 12/10/21 14:29 12/18/21 09:00 Senna 8.6 Mg Tablet PO 8.6 mg DAILY PRN Administration Constipation Sodium Chloride 10 ml 12/09/21 15:00 12/15/21 13:49 Sodium Chloride Flush 0.9% 10 Ml Syringe IVP 10 ml PRN PRN Administration NEEDED PER PROVIDER ORDERS Sodium Chloride 10 ml 12/09/21 17:00 12/20/21 09:17 Sodium Chloride Flush 0.9% 10 Ml Syringe IVP 10 ml 0100,0900,1700 PEREZ Administration Tamsulosin HCl 0.4 mg 12/11/21 09:00 12/20/21 09:16 Tamsulosin 0.4 Mg Capsule PO 0.4 mg DAILY PEREZ Administration - Lab Result Fish Bone Diagrams: 12/19/21 04:46 12/18/21 06:15 - Additional Planning My Orders: My Active Orders 12/20/21 VALPROIC ACID (DEPAKOTE) [CHEM] Urgent Subjective - Subjective Patient Reports: Resting Comfortably Objective Vital Signs: Vital Signs - 24 hr 12/19/21 12/19/21 12/19/21 12:45 15:23 20:26 Temperature 36.5 C 36.3 C L 36.2 C L Heart Rate [ 89 63 65 Brachial] Respiratory 18 18 16 Rate Blood Pressure 102/69 145/78 H 132/65 H [Left Brachial artery] O2 Saturation 98 100 99 12/20/21 12/20/21 12/20/21 00:50 06:30 08:33 Temperature 36.3 C L 36.5 C 36.8 C Heart Rate [ 68 81 81 Brachial] Respiratory 16 18 18 Rate Blood Pressure 143/63 H 107/63 118/70 [Left Brachial artery] O2 Saturation 99 98 98 12/20/21 11:34 Temperature 36.8 C Heart Rate [ 85 Brachial] Respiratory 18 Rate Blood Pressure 135/81 H [Left Brachial artery] O2 Saturation 98 Oxygen O2 Source Room air I&O (Last 24 Hrs): Intake and Output Totals x24h 12/18/21 12/19/21 12/20/21 23:59 23:59 23:59 Intake Total 480 1718 345 Output Total 1850 750 625 Balance -1370 968 -280 General: Alert, Cooperative, No acute distress HEENT: Atraumatic Neck: Supple Lymphatic: no adenopathy Neuro: Alert, Non Focal, Oriented Times 3 Cardiovascular: Regular rate, Normal S1, Normal S2 Respiratory: Chest non-tender, No respiratory distress Abdomen: Normal bowel sounds, Soft Extremities: Normal pulses - Results Results: Laboratory Results WBC 5.8 x10^3/uL (4.8-10.8) 12/19/21 04:46 RBC 3.24 10^6/uL (4.70-6.10) L 12/19/21 04:46 Hgb 9.7 g/dL (14.0-18.0) L 12/19/21 04:46 Hct 30.3 % (42.0-52.0) L 12/19/21 04:46 MCV 93.5 fL (80.0-94.0) 12/19/21 04:46 MCH 29.9 pg (27.0-31.0) 12/19/21 04:46 MCHC 32.0 g/dL (32.0-36.0) 12/19/21 04:46 RDW 14.4 % (12.0-15.0) 12/19/21 04:46 Plt Count 178 10^3/uL (130-450) 12/19/21 04:46 MPV 11.8 fL (7.4-11.4) H 12/19/21 04:46 Neut # (Auto) 3.9 10^3/uL (1.5-6.6) 12/19/21 04:46 Lymph # (Auto) 1.2 10^3/uL (1.5-3.5) L 12/19/21 04:46 [place] # (Auto) 0.6 10^3/uL (0.0-1.0) 12/19/21 04:46 Eos # (Auto) 0.1 10^3/uL (0.0-0.7) 12/19/21 04:46 Baso # (Auto) 0.0 10^3/uL (0.0-0.1) 12/19/21 04:46 Absolute Nucleated RBC 0.00 x10^3/uL 12/19/21 04:46 Nucleated RBC % 0.0 /100WBC 12/19/21 04:46 APTT 28.1 secs (24.9-33.3) 12/10/21 09:50 Sodium 138 mmol/L (135-145) 12/18/21 06:15 Potassium 4.5 mmol/L (3.5-5.0) 12/18/21 06:15 Chloride 108 mmol/L (101-111) 12/18/21 06:15 Carbon Dioxide 18 mmol/L (21-32) L 12/18/21 06:15 Anion Gap 12.0 (6-13) 12/18/21 06:15 BUN 50 mg/dL (6-20) H 12/18/21 06:15 Creatinine 3.8 mg/dL (0.6-1.2) H 12/18/21 06:15 Estimated GFR (MDRD) 16 (>89) L 12/18/21 06:15 Glucose 126 mg/dL (70-100) H 12/18/21 06:15 Estimat Average Glucose 137 mg/dL (70-100) H 12/10/21 04:35 Hemoglobin A1c % 6.4 % (4.27-6.07) H 12/10/21 04:35 Calcium 9.3 mg/dL (8.5-10.3) 12/18/21 06:15 Phosphorus 4.1 mg/dL (2.5-4.6) 12/16/21 05:54 Magnesium 1.6 mg/dL (1.7-2.8) L 12/19/21 04:46 Total Bilirubin 1.8 mg/dL (0.2-1.0) H 12/09/21 12:56 AST 13 IU/L (10-42) 12/09/21 12:56 ALT < 10 IU/L (10-60) L 12/09/21 12:56 Alkaline Phosphatase 60 IU/L (42-121) 12/09/21 12:56 Total Creatine Kinase 51 IU/L (22-269) 12/09/21 12:56 Troponin I High Sens 33.5 ng/L (2.3-19.7) H* 12/09/21 19:01 Total Protein 7.4 g/dL (6.7-8.2) 12/09/21 12:56 Albumin 4.1 g/dL (3.2-5.5) 12/09/21 12:56 Globulin 3.3 g/dL (2.1-4.2) 12/09/21 12:56 Albumin/Globulin Ratio 1.2 (1.0-2.2) 12/09/21 12:56 Lipase 35 U/L (22-51) 12/09/21 12:56 Urine Color YELLOW 12/09/21 13:59 Urine Clarity HAZY (CLEAR) 12/09/21 13:59 Urine pH 5.5 PH (5.0-7.5) 12/09/21 13:59 Ur Specific [place] >=1.030 (1.002-1.030) H 12/09/21 13:59 Urine Protein >=300 mg/dL (NEGATIVE) H 12/09/21 13:59 Urine Glucose (UA) NEGATIVE mg/dL (NEGATIVE) 12/09/21 13:59 Urine Ketones NEGATIVE mg/dL (NEGATIVE) 12/09/21 13:59 Urine Occult Blood MODERATE (NEGATIVE) H 12/09/21 13:59 Urine Nitrite NEGATIVE (NEGATIVE) 12/09/21 13:59 Urine Bilirubin NEGATIVE (NEGATIVE) 12/09/21 13:59 Urine Urobilinogen 0.2 (NORMAL) E.U./dL (NORMAL) 12/09/21 13:59 Ur Leukocyte Esterase NEGATIVE (NEGATIVE) 12/09/21 13:59 Urine RBC 11-25 /HPF (0-5) H 12/09/21 13:59 Urine WBC 6-10 /HPF (0-3) H 12/09/21 13:59 Ur Squamous Epith Cells RARE Squamous (<= Few) 12/09/21 13:59 Urine Bacteria Moderate /HPF (None Seen) H 12/09/21 13:59 Urine Casts 3-5 Granular Casts /LPF 12/09/21 13:59 Ur Microscopic Review INDICATED 12/09/21 13:59 Urine Culture Comments NOT INDICATED 12/09/21 13:59 Nasal Adenovirus (PCR) NOT DETECTED 12/09/21 13:59 Nasal B. parapertussis DNA (PCR) NOT DETECTED 12/09/21 13:59 Nasal Coronavir 229E PCR NOT DETECTED 12/09/21 13:59 Nasal Coronavir HKU1 PCR NOT DETECTED 12/09/21 13:59 Nasal Coronavir NL63 PCR NOT DETECTED 12/09/21 13:59 Nasal Coronavir OC43 PCR NOT DETECTED 12/09/21 13:59 Nasal Enterovir/Rhinovir PCR NOT DETECTED 12/09/21 13:59 Nasal Influenza B PCR NOT DETECTED 12/09/21 13:59 Nasal Influenza A PCR NOT DETECTED 12/09/21 13:59 Nasal Parainfluen 1 PCR NOT DETECTED 12/09/21 13:59 Nasal Parainfluen 2 PCR NOT DETECTED 12/09/21 13:59 Nasal Parainfluen 3 PCR NOT DETECTED 12/09/21 13:59 Nasal Parainfluen 4 PCR NOT DETECTED 12/09/21 13:59 Nasal RSV (PCR) NOT DETECTED 12/09/21 13:59 Nasal B.pertussis DNA PCR NOT DETECTED 12/09/21 13:59 Nasal C.pneumoniae (PCR) NOT DETECTED 12/09/21 13:59 Tawanda Human Metapneumo PCR NOT DETECTED 12/09/21 13:59 Nasal M.pneumoniae (PCR) NOT DETECTED 12/09/21 13:59 Nasal SARS-CoV-2 (PCR) NOT DETECTED 12/09/21 13:59 Urine Opiates Screen NEGATIVE (NEGATIVE) 12/09/21 13:59 Ur Oxycodone Screen NEGATIVE (NEGATIVE) 12/09/21 13:59 Urine Methadone Screen NEGATIVE (NEGATIVE) 12/09/21 13:59 Ur Propoxyphene Screen NEGATIVE (NEGATIVE) 12/09/21 13:59 Ur Barbiturates Screen NEGATIVE (NEGATIVE) 12/09/21 13:59 Ur Tricyclics Screen NEGATIVE (NEGATIVE) 12/09/21 13:59 Ur Phencyclidine Scrn NEGATIVE (NEGATIVE) 12/09/21 13:59 Ur Amphetamine Screen NEGATIVE (NEGATIVE) 12/09/21 13:59 U Methamphetamines Scrn NEGATIVE (NEGATIVE) 12/09/21 13:59 U Benzodiazepines Scrn NEGATIVE (NEGATIVE) 12/09/21 13:59 Urine Cocaine Screen NEGATIVE (NEGATIVE) 12/09/21 13:59 U Cannabinoids Screen NEGATIVE (NEGATIVE) 12/09/21 13:59 - Procedures Procedures: Procedures VENOUS CATHETERIZATION NEC (04/17/14) ABX Reporting Has patient been on IV antibiotics over the past 48 hours?: No Current Medications - Current Medications Current Medications: Active Medications Acetaminophen (Acetaminophen 325 Mg Tablet) 650 mg PO Q4HR PRN PRN Reason: Pain 1 to 4, or Fever Last Admin: 12/20/21 09:16 Dose: 650 mg Acetaminophen/Codeine Phosphate (Acetaminophen/Codeine 300 Mg/30 Mg Tablet) 0.5 tab PO QPM PRN PRN Reason: Severe Pain Last Admin: 12/17/21 21:23 Dose: 0.5 tab Apixaban (Apixaban 2.5 Mg Tablet) 2.5 mg PO BID [facility] Last Admin: 12/20/21 09:16 Dose: 2.5 mg Atorvastatin Calcium (Atorvastatin 40 Mg Tablet) 40 mg PO QPM [facility] Last Admin: 12/19/21 21:47 Dose: 40 mg Calcitriol (Calcitriol 0.25 Mcg Capsule) 0.5 mcg PO DAILY [facility] Last Admin: 12/20/21 09:15 Dose: 0.5 mcg Carbidopa/Levodopa (Carbidopa/Levodopa 25 Mg/250 Mg Tablet) 2 tab PO 0200,0800,1400,2000 [facility] Last Admin: 12/20/21 09:15 Dose: 2 tab Diltiazem HCl (Diltiazem Cd 180 Mg Capsule) 180 mg PO DAILY [facility] Last Admin: 12/20/21 09:15 Dose: Not Given Divalproex Sodium (Divalproex Er 250 Mg Tablet) 500 mg PO BID [facility] Last Admin: 12/20/21 09:15 Dose: 500 mg Entacapone (Entacapone 200 Mg Tablet) 200 mg PO BID [facility] Last Admin: 12/20/21 09:17 Dose: Not Given Fluticasone Propionate (Fluticasone Nasal [place]) 1 sprays TAWANDA DAILY [facility] Last Admin: 12/20/21 09:14 Dose: 2 spr Insulin Aspart (Insulin Aspart 300 Unit/3 Ml Pen) 1 - 5 unit SUBQ 080 0,1200,1700,2100 [facility]; Protocol Last Admin: 12/20/21 09:13 Dose: 1 unit Levetiracetam (Levetiracetam 250 Mg Tablet) 500 mg PO DAILY [facility] Last Admin: 12/20/21 09:15 Dose: 500 mg Lidocaine (Lidocaine Patch 5%) 1 patch TOP DAILY PRN PRN Reason: PAIN Last Admin: 12/14/21 14:31 Dose: 1 patch Lorazepam (Lorazepam 2 Mg/Ml Vial) 1 mg IVP Q2H PRN PRN Reason: Seizure Last Admin: 12/10/21 08:37 Dose: 1 mg Magnesium Oxide (Magnesium Oxide 400 Mg Tablet) 400 mg PO BIDWM [facility] Last Admin: 12/20/21 09:16 Dose: 400 mg Metoprolol Tartrate (Metoprolol 5 Mg/5 Ml Vial) 5 mg IVP Q6H PRN PRN Reason: Tachycardia Multivitamins (Multivitamin Tablet) 1 tab PO DAILYWM [facility] Last Admin: 12/20/21 09:16 Dose: 1 tab Ondansetron HCl (Ondansetron 4 Mg/2 Ml Vial) 4 mg IVP Q6HR PRN PRN Reason: Nausea / Vomiting Pantoprazole Sodium (Pantoprazole 40 Mg Tablet) 40 mg PO BIDAC [facility] Last Admin: 12/20/21 06:29 Dose: 40 mg Polyethylene Glycol (Polyethylene Glycol 3350 17 Gm Packet) 17 gm PO DAILY [facility] Last Admin: 12/20/21 09:14 Dose: 17 gm Senna (Senna 8.6 Mg Tablet) 8.6 mg PO DAILY PRN PRN Reason: Constipation Last Admin: 12/18/21 09:00 Dose: 8.6 mg Sodium Chloride (Sodium Chloride Flush 0.9% 10 Ml Syringe) 10 ml IVP PRN PRN PRN Reason: NEEDED PER PROVIDER ORDERS Last Admin: 12/15/21 13:49 Dose: 10 ml Sodium Chloride (Sodium Chloride Flush 0.9% 10 Ml Syringe) 10 ml IVP 0100,0900,1700 [facility] Last Admin: 12/20/21 09:17 Dose: 10 ml Tamsulosin HCl (Tamsulosin 0.4 Mg Capsule) 0.4 mg PO DAILY [facility] Last Admin: 12/20/21 09:16 Dose: 0.4 mg Omeprazole 20 mg PO BID 10/02/13 Atorvastatin Calcium 40 mg PO QPM 01/24/16 Carbidopa/Levodopa [Carbidopa-Levodopa 25-250 Tab] 2 each PO QID 01/05/20 Rivaroxaban [Xarelto] 15 mg PO QDDINNER 07/23/20 Entacapone [Comtan] 200 mg PO BID 04/02/21 Multivit-Min/Folic/Vit K/Lycop [One Daily Men's 50 Plus D3 Tab] 1 each PO DAILY 04/02/21 calcitrioL [Rocaltrol] 0.5 mcg PO DAILY 04/02/21 Insulin Glargine [Lantus Solostar] 8 unit SQ HS 04/23/21 Senna [Senokot] 8.6 mg PO DAILY PRN 04/23/21 Albuterol Sulfate [Proair Hfa Inhaler] 2 puffs INH Q4HR PRN 11/18/21 Fluticasone [Flonase] 2 spray TAWANDA DAILY 11/18/21 diltiaZEM CD [Cardizem Cd] 180 mg PO DAILY 12/09/21
[2021-12-20] MEDS: LIDOCAINE PATCH 5% TOP PRN (17:14)
[2021-12-20] MEDS: ATORVASTATIN 40 MG TABLET PO SCH (20:57)
[2021-12-21] MEDS: SODIUM CHLORIDE FLUSH 0.9% 10 ML SYRINGE IVP SCH ×4 (01:10→23:49)
[2021-12-21] MEDS: CARBIDOPA/LEVODOPA 25 MG/250 MG TABLET PO SCH ×4 (02:10→20:59)
[2021-12-21] MEDS: PANTOPRAZOLE 40 MG TABLET PO SCH ×2 (07:01→16:57)
[2021-12-21] MEDS: INSULIN ASPART 300 UNIT/3 ML PEN SUBQ SCH ×4 (08:39→20:57)
[2021-12-21] MEDS: polyethylene glycoL 3350 17 GM PACKET PO SCH (08:41)
[2021-12-21] MEDS: MULTIVITAMIN TABLET PO SCH (08:41)
[2021-12-21] MEDS: levETIRAcetam 250 MG TABLET PO SCH (08:41)
[2021-12-21] MEDS: TAMSULOSIN 0.4 MG CAPSULE PO SCH (08:41)
[2021-12-21] MEDS: APIXABAN 2.5 MG TABLET PO SCH ×2 (08:41→20:59)
[2021-12-21] MEDS: calcitrioL 0.25 MCG CAPSULE PO SCH (08:41)
[2021-12-21] MEDS: DIVALPROEX ER 250 MG TABLET PO SCH ×2 (08:41→20:59)
[2021-12-21] MEDS: diltiaZEM CD 180 MG CAPSULE PO SCH (08:41)
[2021-12-21] MEDS: MAGNESIUM OXIDE 400 MG TABLET PO SCH ×2 (08:41→16:57)
[2021-12-21] MEDS: FLUTICASONE NASAL SPRAY NAS SCH (08:42)
[2021-12-21] MEDS: ENTACAPONE 200 MG TABLET PO SCH ×2 (08:46→20:49)
--- NOTE | 2021-12-21 10:48 | PROVIDER PROGRESS NOTE ---
Assessment/Plan - Problem List (1) Seizure Assessment/Plan: 12/21 pt's seizure is under the control of two meds: Keppra and Depakote. serum Keppra concentration is pending, he is at 500mg daily. Depakote is at 31, slight less the therapeutic arrange but pt's seizure is under of control. continue keppra and Depakote. pt is pending for placement, social worker aide was consulted for d/c planning. 12/20 pt has no more seizure after he had combination of keppra 500mg daily and 500 Depakote bid. pt is nearly completely deaf. He response to writing. he asked what his discharge plan is, when he can left hospital, and he concerned how to deal with his private trailer. Discussed with social worker aide for above issue and the care plan. we will monitor Keppra and depakote serum concentration. (2) Falls at home Conclusion/Plan: pt had multiple frequent falls at home. pt had PT/OT evaluation and treatment. pt is living alone, recommended pt be d/c to SNF for rehab, pt may need LTAC placement as well. consult with social worker aide for replacement. fall precaution at hospital (3) Confusion resolved (4) CKD (chronic kidney disease) stage 4, GFR 15-29 ml/min creatinine is stable, at 3.8 on 12/18 lab monitor (5) Diabetes mellitus Conclusion/Plan: good control and his A1c is 6.4 continue slide scale, glucose check, hypoglycemia protocol (6) Atrial fibrillation Conclusion/Plan: HR is controlled, continue Eliquis 2.5 mg bid. (7) Parkinson disease Conclusion/Plan: stable, continue home meds (8) [place] He is nearly completely deaf. Communication is by writing to him but he can verbalize back, continue support to pt. (9) Hypertension Conclusion/Plan: Stable. We resumed his home meds and ordered holding parameters. Continue vital sign monitoring. (10) Chronic LBP continue pain control Will also order a lidocaine patch topically (11) GERD (gastroesophageal reflux disease) we continued with Protonix as he took at home. (12)unsuspended ventricular tachycardia resolved, no more unsuspended and asymptomatic VT (4) Atrial fibrillation Qualifiers: Atrial fibrillation type: longstanding persistent Qualified Code(s): I48.11 - Longstanding persistent atrial fibrillation - Current Meds Current Meds: Current Medications Generic Name Dose Route Start Last Admin Trade Name Jay PRN Reason Stop Dose Admin Acetaminophen 650 mg 12/09/21 15:00 12/20/21 17:15 Acetaminophen 325 Mg Tablet PO 650 mg Q4HR PRN Administration Pain 1 to 4, or Fever Acetaminophen/Codeine Phosphate 0.5 tab 12/12/21 14:18 12/17/21 21:23 Acetaminophen/Codeine 300 Mg/30 Mg Tablet PO 0.5 tab QPM PRN Administration Severe Pain Apixaban 2.5 mg 12/12/21 21:00 12/21/21 08:41 Apixaban 2.5 Mg Tablet PO 2.5 mg BID PEREZ Administration Atorvastatin Calcium 40 mg 12/10/21 21:00 12/20/21 20:57 Atorvastatin 40 Mg Tablet PO 40 mg QPM PEREZ Administration Calcitriol 0.5 mcg 12/11/21 09:00 12/21/21 08:41 Calcitriol 0.25 Mcg Capsule PO 0.5 mcg DAILY PEREZ Administration Carbidopa/Levodopa 2 tab 12/10/21 15:00 12/21/21 08:41 Carbidopa/Levodopa 25 Mg/250 Mg Tablet PO 2 tab 0200,0800,1400,2000 PEREZ Administration Diltiazem HCl 180 mg 12/11/21 09:00 12/21/21 08:41 Diltiazem Cd 180 Mg Capsule PO 180 mg DAILY PEREZ Administration Divalproex Sodium 500 mg 12/13/21 09:00 12/21/21 08:41 Divalproex Er 250 Mg Tablet PO 500 mg BID PEREZ Administration Entacapone 200 mg 12/10/21 21:00 12/21/21 08:46 Entacapone 200 Mg Tablet PO Not Given BID PEREZ Fluticasone Propionate 1 sprays 12/11/21 09:00 12/21/21 08:42 Fluticasone Nasal [place] TAWANDA 2 spr DAILY PEREZ Administration Insulin Aspart 1 - 5 unit 12/09/21 17:00 12/21/21 08:39 Insulin Aspart 300 Unit/3 Ml Pen SUBQ Not Given 0800,1200,1700,2100 [facility] Protocol Levetiracetam 500 mg 12/14/21 09:00 12/21/21 08:41 Levetiracetam 250 Mg Tablet PO 500 mg DAILY PEREZ Administration Lidocaine 1 patch 12/12/21 14:19 12/20/21 17:14 Lidocaine Patch 5% TOP 1 patch DAILY PRN Administration PAIN Lorazepam 1 mg 12/09/21 16:25 12/10/21 08:37 Lorazepam 2 Mg/Ml Vial IVP 1 mg Q2H PRN Administration Seizure Magnesium Oxide 400 mg 12/19/21 17:00 12/21/21 08:41 Magnesium Oxide 400 Mg Tablet PO 400 mg BIDWM PEREZ Administration Multivitamins 1 tab 12/11/21 08:00 12/21/21 08:41 Multivitamin Tablet PO 1 tab DAILYWM PEREZ Administration Pantoprazole Sodium 40 mg 12/10/21 16:00 12/21/21 07:01 Pantoprazole 40 Mg Tablet PO 40 mg BIDAC PEREZ Administration Polyethylene Glycol 17 gm 12/17/21 09:00 12/21/21 08:41 Polyethylene Glycol 3350 17 Gm Packet PO 17 gm DAILY PEREZ Administration Senna 8.6 mg 12/10/21 14:29 12/18/21 09:00 Senna 8.6 Mg Tablet PO 8.6 mg DAILY PRN Administration Constipation Sodium Chloride 10 ml 12/09/21 15:00 12/15/21 13:49 Sodium Chloride Flush 0.9% 10 Ml Syringe IVP 10 ml PRN PRN Administration NEEDED PER PROVIDER ORDERS Sodium Chloride 10 ml 12/09/21 17:00 12/21/21 08:46 Sodium Chloride Flush 0.9% 10 Ml Syringe IVP 10 ml 0100,0900,1700 PEREZ Administration Tamsulosin HCl 0.4 mg 12/11/21 09:00 12/21/21 08:41 Tamsulosin 0.4 Mg Capsule PO 0.4 mg DAILY PEREZ Administration - Lab Result Fish Bone Diagrams: 12/19/21 04:46 12/18/21 06:15 - Additional Planning My Orders: My Active Orders 12/20/21 12:00 LEVETIRACETAM (KEPPRA) [REFLAB] Urgent Subjective - Subjective Patient Reports: Resting Comfortably Objective Vital Signs: Vital Signs - 24 hr 12/20/21 12/20/21 12/20/21 11:34 16:05 20:59 Temperature 36.8 C 36.5 C 36.6 C Heart Rate [ 85 75 Brachial] Heart Rate [ 85 Monitoring electrodes] Respiratory 18 17 20 Rate Blood Pressure 135/81 H 142/82 H 165/87 H [Left Brachial artery] O2 Saturation 98 98 99 12/21/21 12/21/21 12/21/21 00:27 05:00 07:30 Temperature 36.4 C L 37 C Heart Rate [ 88 90 85 Brachial] Heart Rate [ Monitoring electrodes] Respiratory 18 18 18 Rate Blood Pressure 147/77 H 144/82 H 151/74 H [Left Brachial artery] O2 Saturation 99 98 99 Oxygen O2 Source Room air I&O (Last 24 Hrs): Intake and Output Totals x24h 12/19/21 12/20/21 12/21/21 23:59 23:59 23:59 Intake Total 1718 1323 486 Output Total 750 1125 925 Balance 968 198 -439 General: Alert, Cooperative, No acute distress HEENT: Atraumatic Neck: Supple Lymphatic: no adenopathy Neuro: Alert, Non Focal, Oriented Times 3 Cardiovascular: Regular rate, Normal S1, Normal S2 Respiratory: Chest non-tender, No respiratory distress Abdomen: Normal bowel sounds, Soft Extremities: Normal pulses - Results Results: Laboratory Results WBC 5.8 x10^3/uL (4.8-10.8) 12/19/21 04:46 RBC 3.24 10^6/uL (4.70-6.10) L 12/19/21 04:46 Hgb 9.7 g/dL (14.0-18.0) L 12/19/21 04:46 Hct 30.3 % (42.0-52.0) L 12/19/21 04:46 MCV 93.5 fL (80.0-94.0) 12/19/21 04:46 MCH 29.9 pg (27.0-31.0) 12/19/21 04:46 MCHC 32.0 g/dL (32.0-36.0) 12/19/21 04:46 RDW 14.4 % (12.0-15.0) 12/19/21 04:46 Plt Count 178 10^3/uL (130-450) 12/19/21 04:46 MPV 11.8 fL (7.4-11.4) H 12/19/21 04:46 Neut # (Auto) 3.9 10^3/uL (1.5-6.6) 12/19/21 04:46 Lymph # (Auto) 1.2 10^3/uL (1.5-3.5) L 12/19/21 04:46 [place] # (Auto) 0.6 10^3/uL (0.0-1.0) 12/19/21 04:46 Eos # (Auto) 0.1 10^3/uL (0.0-0.7) 12/19/21 04:46 Baso # (Auto) 0.0 10^3/uL (0.0-0.1) 12/19/21 04:46 Absolute Nucleated RBC 0.00 x10^3/uL 12/19/21 04:46 Nucleated RBC % 0.0 /100WBC 12/19/21 04:46 APTT 28.1 secs (24.9-33.3) 12/10/21 09:50 Sodium 138 mmol/L (135-145) 12/18/21 06:15 Potassium 4.5 mmol/L (3.5-5.0) 12/18/21 06:15 Chloride 108 mmol/L (101-111) 12/18/21 06:15 Carbon Dioxide 18 mmol/L (21-32) L 12/18/21 06:15 Anion Gap 12.0 (6-13) 12/18/21 06:15 BUN 50 mg/dL (6-20) H 12/18/21 06:15 Creatinine 3.8 mg/dL (0.6-1.2) H 12/18/21 06:15 Estimated GFR (MDRD) 16 (>89) L 12/18/21 06:15 Glucose 126 mg/dL (70-100) H 12/18/21 06:15 Estimat Average Glucose 137 mg/dL (70-100) H 12/10/21 04:35 Hemoglobin A1c % 6.4 % (4.27-6.07) H 12/10/21 04:35 Calcium 9.3 mg/dL (8.5-10.3) 12/18/21 06:15 Phosphorus 4.1 mg/dL (2.5-4.6) 12/16/21 05:54 Magnesium 1.6 mg/dL (1.7-2.8) L 12/19/21 04:46 Total Bilirubin 1.8 mg/dL (0.2-1.0) H 12/09/21 12:56 AST 13 IU/L (10-42) 12/09/21 12:56 ALT < 10 IU/L (10-60) L 12/09/21 12:56 Alkaline Phosphatase 60 IU/L (42-121) 12/09/21 12:56 Total Creatine Kinase 51 IU/L (22-269) 12/09/21 12:56 Troponin I High Sens 33.5 ng/L (2.3-19.7) H* 12/09/21 19:01 Total Protein 7.4 g/dL (6.7-8.2) 12/09/21 12:56 Albumin 4.1 g/dL (3.2-5.5) 12/09/21 12:56 Globulin 3.3 g/dL (2.1-4.2) 12/09/21 12:56 Albumin/Globulin Ratio 1.2 (1.0-2.2) 12/09/21 12:56 Lipase 35 U/L (22-51) 12/09/21 12:56 Urine Color YELLOW 12/09/21 13:59 Urine Clarity HAZY (CLEAR) 12/09/21 13:59 Urine pH 5.5 PH (5.0-7.5) 12/09/21 13:59 Ur Specific [place] >=1.030 (1.002-1.030) H 12/09/21 13:59 Urine Protein >=300 mg/dL (NEGATIVE) H 12/09/21 13:59 Urine Glucose (UA) NEGATIVE mg/dL (NEGATIVE) 12/09/21 13:59 Urine Ketones NEGATIVE mg/dL (NEGATIVE) 12/09/21 13:59 Urine Occult Blood MODERATE (NEGATIVE) H 12/09/21 13:59 Urine Nitrite NEGATIVE (NEGATIVE) 12/09/21 13:59 Urine Bilirubin NEGATIVE (NEGATIVE) 12/09/21 13:59 Urine Urobilinogen 0.2 (NORMAL) E.U./dL (NORMAL) 12/09/21 13:59 Ur Leukocyte Esterase NEGATIVE (NEGATIVE) 12/09/21 13:59 Urine RBC 11-25 /HPF (0-5) H 12/09/21 13:59 Urine WBC 6-10 /HPF (0-3) H 12/09/21 13:59 Ur Squamous Epith Cells RARE Squamous (<= Few) 12/09/21 13:59 Urine Bacteria Moderate /HPF (None Seen) H 12/09/21 13:59 Urine Casts 3-5 Granular Casts /LPF 12/09/21 13:59 Ur Microscopic Review INDICATED 12/09/21 13:59 Urine Culture Comments NOT INDICATED 12/09/21 13:59 Nasal Adenovirus (PCR) NOT DETECTED 12/09/21 13:59 Nasal B. parapertussis DNA (PCR) NOT DETECTED 12/09/21 13:59 Nasal Coronavir 229E PCR NOT DETECTED 12/09/21 13:59 Nasal Coronavir HKU1 PCR NOT DETECTED 12/09/21 13:59 Nasal Coronavir NL63 PCR NOT DETECTED 12/09/21 13:59 Nasal Coronavir OC43 PCR NOT DETECTED 12/09/21 13:59 Nasal Enterovir/Rhinovir PCR NOT DETECTED 12/09/21 13:59 Nasal Influenza B PCR NOT DETECTED 12/09/21 13:59 Nasal Influenza A PCR NOT DETECTED 12/09/21 13:59 Nasal Parainfluen 1 PCR NOT DETECTED 12/09/21 13:59 Nasal Parainfluen 2 PCR NOT DETECTED 12/09/21 13:59 Nasal Parainfluen 3 PCR NOT DETECTED 12/09/21 13:59 Nasal Parainfluen 4 PCR NOT DETECTED 12/09/21 13:59 Nasal RSV (PCR) NOT DETECTED 12/09/21 13:59 Nasal B.pertussis DNA PCR NOT DETECTED 12/09/21 13:59 Nasal C.pneumoniae (PCR) NOT DETECTED 12/09/21 13:59 [place] Human Metapneumo PCR NOT DETECTED 12/09/21 13:59 Nasal M.pneumoniae (PCR) NOT DETECTED 12/09/21 13:59 Nasal SARS-CoV-2 (PCR) NOT DETECTED 12/09/21 13:59 Last Dose Date Not Reportable 12/20/21 12:00 Last Dose Time Not Reportable 12/20/21 12:00 Urine Opiates Screen NEGATIVE (NEGATIVE) 12/09/21 13:59 Ur Oxycodone Screen NEGATIVE (NEGATIVE) 12/09/21 13:59 Urine Methadone Screen NEGATIVE (NEGATIVE) 12/09/21 13:59 Ur Propoxyphene Screen NEGATIVE (NEGATIVE) 12/09/21 13:59 Ur Barbiturates Screen NEGATIVE (NEGATIVE) 05/13/22 13:59 Valproic Acid 31.0 ug/mL 12/20/21 12:00 Ur Tricyclics Screen NEGATIVE (NEGATIVE) 12/09/21 13:59 Ur Phencyclidine Scrn NEGATIVE (NEGATIVE) 12/09/21 13:59 Ur Amphetamine Screen NEGATIVE (NEGATIVE) 12/09/21 13:59 U Methamphetamines Scrn NEGATIVE (NEGATIVE) 12/09/21 13:59 U Benzodiazepines Scrn NEGATIVE (NEGATIVE) 12/09/21 13:59 Urine Cocaine Screen NEGATIVE (NEGATIVE) 12/09/21 13:59 U Cannabinoids Screen NEGATIVE (NEGATIVE) 12/09/21 13:59 - Procedures Procedures: Procedures [facility] (04/17/14) ABX Reporting Has patient been on IV antibiotics over the past 48 hours?: No Current Medications - Current Medications Current Medications: Active Medications Acetaminophen (Acetaminophen 325 Mg Tablet) 650 mg PO Q4HR PRN PRN Reason: Pain 1 to 4, or Fever Last Admin: 12/20/21 17:15 Dose: 650 mg Acetaminophen/Codeine Phosphate (Acetaminophen/Codeine 300 Mg/30 Mg Tablet) 0.5 tab PO QPM PRN PRN Reason: Severe Pain Last Admin: 12/17/21 21:23 Dose: 0.5 tab Apixaban (Apixaban 2.5 Mg Tablet) 2.5 mg PO BID [facility] Last Admin: 12/21/21 08:41 Dose: 2.5 mg Atorvastatin Calcium (Atorvastatin 40 Mg Tablet) 40 mg PO QPM [facility] Last Admin: 12/20/21 20:57 Dose: 40 mg Calcitriol (Calcitriol 0.25 Mcg Capsule) 0.5 mcg PO DAILY [facility] Last Admin: 12/21/21 08:41 Dose: 0.5 mcg Carbidopa/Levodopa (Carbidopa/Levodopa 25 Mg/250 Mg Tablet) 2 tab PO 0200,0800,1400,2000 [facility] Last Admin: 12/21/21 08:41 Dose: 2 tab Diltiazem HCl (Diltiazem Cd 180 Mg Capsule) 180 mg PO DAILY [facility] Last Admin: 12/21/21 08:41 Dose: 180 mg Divalproex Sodium (Divalproex Er 250 Mg Tablet) 500 mg PO BID [facility] Last Admin: 12/21/21 08:41 Dose: 500 mg Entacapone (Entacapone 200 Mg Tablet) 200 mg PO BID [facility] Last Admin: 12/21/21 08:46 Dose: Not Given Fluticasone Propionate (Fluticasone Nasal [place]) 1 sprays TAWANDA DAILY [facility] Last Admin: 12/21/21 08:42 Dose: 2 spr Insulin Aspart (Insulin Aspart 300 Unit/3 Ml Pen) 1 - 5 unit SUBQ 0800,1200,1700,2100 [facility]; Protocol Last Admin: 12/21/21 08:39 Dose: Not Given Levetiracetam (Levetiracetam 250 Mg Tablet) 500 mg PO DAILY [facility] Last Admin: 12/21/21 08:41 Dose: 500 mg Lidocaine (Lidocaine Patch 5%) 1 patch TOP DAILY PRN PRN Reason: PAIN Last Admin: 12/20/21 17:14 Dose: 1 patch Lorazepam (Lorazepam 2 Mg/Ml Vial) 1 mg IVP Q2H PRN PRN Reason: Seizure Last Admin: 12/10/21 08:37 Dose: 1 mg Magnesium Oxide (Magnesium Oxide 400 Mg Tablet) 400 mg PO BIDWM [facility] Last Admin: 12/21/21 08:41 Dose: 400 mg Metoprolol Tartrate (Metoprolol 5 Mg/5 Ml Vial) 5 mg IVP Q6H PRN PRN Reason: Tachycardia Multivitamins (Multivitamin Tablet) 1 tab PO DAILYWM [facility] Last Admin: 12/21/21 08:41 Dose: 1 tab Ondansetron HCl (Ondansetron 4 Mg/2 Ml Vial) 4 mg IVP Q6HR PRN PRN Reason: Nausea / Vomiting Pantoprazole Sodium (Pantoprazole 40 Mg Tablet) 40 mg PO BIDAC [facility] Last Admin: 12/21/21 07:01 Dose: 40 mg Polyethylene Glycol (Polyethylene Glycol 3350 17 Gm Packet) 17 gm PO DAILY [facility] Last Admin: 12/21/21 08:41 Dose: 17 gm Senna (Senna 8.6 Mg Tablet) 8.6 mg PO DAILY PRN PRN Reason: Constipation Last Admin: 12/18/21 09:00 Dose: 8.6 mg Sodium Chloride (Sodium Chloride Flush 0.9% 10 Ml Syringe) 10 ml IVP PRN PRN PRN Reason: NEEDED PER PROVIDER ORDERS Last Admin: 12/15/21 13:49 Dose: 10 ml Sodium Chloride (Sodium Chloride Flush 0.9% 10 Ml Syringe) 10 ml IVP 0100,0900,1700 [facility] Last Admin: 12/21/21 08:46 Dose: 10 ml Tamsulosin HCl (Tamsulosin 0.4 Mg Capsule) 0.4 mg PO DAILY [facility] Last Admin: 12/21/21 08:41 Dose: 0.4 mg Omeprazole 20 mg PO BID 10/02/13 Atorvastatin Calcium 40 mg PO QPM 01/24/16 Carbidopa/Levodopa [Carbidopa-Levodopa 25-250 Tab] 2 each PO QID 01/05/20 Rivaroxaban [Xarelto] 15 mg PO QDDINNER 07/23/20 Entacapone [Comtan] 200 mg PO BID 04/02/21 Multivit-Min/Folic/Vit K/Lycop [One Daily Men's 50 Plus D3 Tab] 1 each PO DAILY 04/02/21 calcitrioL [Rocaltrol] 0.5 mcg PO DAILY 04/02/21 Insulin Glargine [Lantus Solostar] 8 unit SQ HS 04/23/21 Senna [Senokot] 8.6 mg PO DAILY PRN 04/23/21 Albuterol Sulfate [Proair Hfa Inhaler] 2 puffs INH Q4HR PRN 11/18/21 Fluticasone [Flonase] 2 spray TAWANDA DAILY 11/18/21 diltiaZEM CD [Cardizem Cd] 180 mg PO DAILY 12/09/21
[2021-12-21] MEDS: ATORVASTATIN 40 MG TABLET PO SCH (20:59)
[2021-12-21] MEDS: ACETAMINOPHEN 325 MG TABLET PO PRN (23:46)
[2021-12-22] MEDS: CARBIDOPA/LEVODOPA 25 MG/250 MG TABLET PO SCH ×4 (01:32→20:41)
[2021-12-22] MEDS: PANTOPRAZOLE 40 MG TABLET PO SCH ×2 (06:37→16:22)
[2021-12-22] MEDS: levETIRAcetam 250 MG TABLET PO SCH (08:50)
[2021-12-22] MEDS: INSULIN ASPART 300 UNIT/3 ML PEN SUBQ SCH ×4 (08:50→20:42)
[2021-12-22] MEDS: TAMSULOSIN 0.4 MG CAPSULE PO SCH (08:51)
[2021-12-22] MEDS: MAGNESIUM OXIDE 400 MG TABLET PO SCH ×2 (08:51→17:11)
[2021-12-22] MEDS: MULTIVITAMIN TABLET PO SCH (08:51)
[2021-12-22] MEDS: DIVALPROEX ER 250 MG TABLET PO SCH ×2 (08:52→20:42)
[2021-12-22] MEDS: calcitrioL 0.25 MCG CAPSULE PO SCH (08:52)
[2021-12-22] MEDS: ENTACAPONE 200 MG TABLET PO SCH ×2 (08:52→20:42)
[2021-12-22] MEDS: diltiaZEM CD 180 MG CAPSULE PO SCH (08:52)
[2021-12-22] MEDS: APIXABAN 2.5 MG TABLET PO SCH ×2 (08:52→20:42)
[2021-12-22] MEDS: FLUTICASONE NASAL SPRAY NAS SCH (08:53)
[2021-12-22] MEDS: polyethylene glycoL 3350 17 GM PACKET PO SCH ×2 (08:53→08:59)
[2021-12-22] MEDS: SODIUM CHLORIDE FLUSH 0.9% 10 ML SYRINGE IVP SCH ×2 (08:54→17:11)
--- NOTE | 2021-12-22 11:00 | PROVIDER PROGRESS NOTE ---
Assessment/Plan - Problem List (1) Seizure Assessment/Plan: 12/22 pt's seizure is under the control of two meds: Keppra and Depakote. Depakote is at 31,slight less the therapeutic arrange but pt's seizure is under of control. serum Keppra concentration is pending, he is at 500mg daily. pt is ready for d/c. social scientist was consulted for d/c planning. 12/21 pt's seizure is under the control of two meds: Keppra and Depakote. serum Keppra concentration is pending, he is at 500mg daily. Depakote is at 31, slight less the therapeutic arrange but pt's seizure is under of control. continue keppra and Depakote. pt is pending for placement, social scientist was consulted for d/c planning. 12/20 pt has no more seizure after he had combination of keppra 500mg daily and 500 Depakote bid. pt is nearly completely deaf. He response to writing. he asked what his discharge plan is, when he can left hospital, and he concerned how to deal with his private trailer. Discussed with social scientist for above issue and the care plan. we will monitor Keppra and depakote serum concentration. (2) Falls at home Conclusion/Plan: pt had multiple frequent falls at home. pt had PT/OT evaluation and treatment. pt is living alone, recommended pt be d/c to SNF for rehab, pt may need LTAC placement as well. consult with social scientist for replacement. fall precaution at hospital (3) Confusion resolved (4) CKD (chronic kidney disease) stage 4, GFR 15-29 ml/min creatinine is stable, at 3.8 on 12/18 lab monitor (5) Diabetes mellitus Conclusion/Plan: good control and his A1c is 6.4 continue slide scale, glucose check, hypoglycemia protocol (6) Atrial fibrillation Conclusion/Plan: HR is controlled, continue Eliquis 2.5 mg bid. (7) Parkinson disease Conclusion/Plan: stable, continue home meds (8) [place] He is nearly completely deaf. Communication is by writing to him but he can verbalize back, continue support to pt. (9) Hypertension Conclusion/Plan: Stable. We resumed his home meds and ordered holding parameters. Continue vital sign monitoring. (10) Chronic LBP continue pain control Will also order a lidocaine patch topically (11) GERD (gastroesophageal reflux disease) we continued with Protonix as he took at home. (12)unsuspended ventricular tachycardia resolved, no more unsuspended and asymptomatic VT (4) Atrial fibrillation Qualifiers: Atrial fibrillation type: longstanding persistent Qualified Code(s): I48.11 - Longstanding persistent atrial fibrillation - Current Meds Current Meds: Current Medications Generic Name Dose Route Start Last Admin Trade Name Freq PRN Reason Stop Dose Admin Acetaminophen 650 mg 12/09/21 15:00 12/21/21 23:46 Acetaminophen 325 Mg Tablet PO 650 mg Q4HR PRN Administration Pain 1 to 4, or Fever Acetaminophen/Codeine Phosphate 0.5 tab 12/12/21 14:18 12/17/21 21:23 Acetaminophen/Codeine 300 Mg/30 Mg Tablet PO 0.5 tab QPM PRN Administration Severe Pain Apixaban 2.5 mg 12/12/21 21:00 12/22/21 08:52 Apixaban 2.5 Mg Tablet PO 2.5 mg BID PEREZ Administration Atorvastatin Calcium 40 mg 12/10/21 21:00 12/21/21 20:59 Atorvastatin 40 Mg Tablet PO 40 mg QPM PEREZ Administration Calcitriol 0.5 mcg 12/11/21 09:00 12/22/21 08:52 Calcitriol 0.25 Mcg Capsule PO 0.5 mcg DAILY PEREZ Administration Carbidopa/Levodopa 2 tab 12/10/21 15:00 12/22/21 08:50 Carbidopa/Levodopa 25 Mg/250 Mg Tablet PO 2 tab 0200,0800,1400,2000 PEREZ Administration Diltiazem HCl 180 mg 12/11/21 09:00 12/22/21 08:52 Diltiazem Cd 180 Mg Capsule PO 180 mg DAILY PEREZ Administration Divalproex Sodium 500 mg 12/13/21 09:00 12/22/21 08:52 Divalproex Er 250 Mg Tablet PO 500 mg BID PEREZ Administration Entacapone 200 mg 12/10/21 21:00 12/22/21 08:52 Entacapone 200 Mg Tablet PO Not Given BID PEREZ Fluticasone Propionate 1 sprays 12/11/21 09:00 12/22/21 08:53 Fluticasone Nasal [place] TAWANDA 1 spr DAILY PEREZ Administration Insulin Aspart 1 - 5 unit 12/09/21 17:00 12/22/21 08:50 Insulin Aspart 300 Unit/3 Ml Pen SUBQ Not Given 0800,1200,1700,2100 [facility] Protocol Levetiracetam 500 mg 12/14/21 09:00 12/22/21 08:50 Levetiracetam 250 Mg Tablet PO 500 mg DAILY PEREZ Administration Lidocaine 1 patch 12/12/21 14:19 12/20/21 17:14 Lidocaine Patch 5% TOP 1 patch DAILY PRN Administration PAIN Lorazepam 1 mg 12/09/21 16:25 12/10/21 08:37 Lorazepam 2 Mg/Ml Vial IVP 1 mg Q2H PRN Administration Seizure Magnesium Oxide 400 mg 12/19/21 17:00 12/22/21 08:51 Magnesium Oxide 400 Mg Tablet PO 400 mg BIDWM PEREZ Administration Multivitamins 1 tab 12/11/21 08:00 12/22/21 08:51 Multivitamin Tablet PO 1 tab DAILYWM PEREZ Administration Pantoprazole Sodium 40 mg 12/10/21 16:00 12/22/21 06:37 Pantoprazole 40 Mg Tablet PO 40 mg BIDAC PEREZ Administration Polyethylene Glycol 17 gm 12/17/21 09:00 12/22/21 08:59 Polyethylene Glycol 3350 17 Gm Packet PO Not Given DAILY PEREZ Senna 8.6 mg 12/10/21 14:29 12/18/21 09:00 Senna 8.6 Mg Tablet PO 8.6 mg DAILY PRN Administration Constipation Sodium Chloride 10 ml 12/09/21 15:00 12/15/21 13:49 Sodium Chloride Flush 0.9% 10 Ml Syringe IVP 10 ml PRN PRN Administration NEEDED PER PROVIDER ORDERS Sodium Chloride 10 ml 12/09/21 17:00 12/22/21 08:54 Sodium Chloride Flush 0.9% 10 Ml Syringe IVP 10 ml 0100,0900,1700 PEREZ Administration Tamsulosin HCl 0.4 mg 12/11/21 09:00 12/22/21 08:51 Tamsulosin 0.4 Mg Capsule PO 0.4 mg DAILY PEREZ Administration - Lab Result Fish Bone Diagrams: 12/19/21 04:46 12/18/21 06:15 Subjective - Subjective Patient Reports: Resting Comfortably Objective Vital Signs: Vital Signs - 24 hr 12/21/21 12/21/21 12/21/21 11:21 15:19 20:37 Temperature 36.4 C L 36.5 C 36.8 C Heart Rate [ 76 59 L 74 Brachial] Respiratory 17 18 15 Rate Blood Pressure 125/71 127/71 149/58 H [Left Brachial artery] O2 Saturation 98 98 100 12/22/21 12/22/21 12/22/21 00:11 06:09 07:27 Temperature 36.4 C L 36.4 C L 36.4 C L Heart Rate [ 65 64 69 Brachial] Respiratory 16 16 16 Rate Blood Pressure 126/61 145/75 H 139/75 H [Left Brachial artery] O2 Saturation 99 99 100 12/22/21 08:40 Temperature Heart Rate [ 82 Brachial] Respiratory Rate Blood Pressure 131/73 H [Left Brachial artery] O2 Saturation Oxygen O2 Source Room air I&O (Last 24 Hrs): Intake and Output Totals x24h 12/20/21 12/21/21 12/22/21 23:59 23:59 23:59 Intake Total 1323 1526 480 Output Total 1125 1575 875 Balance 198 -49 -395 General: Alert, Oriented x3, No acute distress HEENT: Atraumatic Neck: Supple Lymphatic: no adenopathy Neuro: Alert, Non Focal, Oriented Times 3 Cardiovascular: Regular rate, Normal S1, Normal S2 Respiratory: Chest non-tender, No respiratory distress Abdomen: Normal bowel sounds, Soft Extremities: Normal pulses - Results Results: Laboratory Results WBC 5.8 x10^3/uL (4.8-10.8) 12/19/21 04:46 RBC 3.24 10^6/uL (4.70-6.10) L 12/19/21 04:46 Hgb 9.7 g/dL (14.0-18.0) L 12/19/21 04:46 Hct 30.3 % (42.0-52.0) L 12/19/21 04:46 MCV 93.5 fL (80.0-94.0) 12/19/21 04:46 MCH 29.9 pg (27.0-31.0) 12/19/21 04:46 MCHC 32.0 g/dL (32.0-36.0) 12/19/21 04:46 RDW 14.4 % (12.0-15.0) 12/19/21 04:46 Plt Count 178 10^3/uL (130-450) 12/19/21 04:46 MPV 11.8 fL (7.4-11.4) H 12/19/21 04:46 Neut # (Auto) 3.9 10^3/uL (1.5-6.6) 12/19/21 04:46 Lymph # (Auto) 1.2 10^3/uL (1.5-3.5) L 12/19/21 04:46 [place] # (Auto) 0.6 10^3/uL (0.0-1.0) 12/19/21 04:46 Eos # (Auto) 0.1 10^3/uL (0.0-0.7) 12/19/21 04:46 Baso # (Auto) 0.0 10^3/uL (0.0-0.1) 12/19/21 04:46 Absolute Nucleated RBC 0.00 x10^3/uL 12/19/21 04:46 Nucleated RBC % 0.0 /100WBC 12/19/21 04:46 APTT 28.1 secs (24.9-33.3) 12/10/21 09:50 Sodium 138 mmol/L (135-145) 12/18/21 06:15 Potassium 4.5 mmol/L (3.5-5.0) 12/18/21 06:15 Chloride 108 mmol/L (101-111) 12/18/21 06:15 Carbon Dioxide 18 mmol/L (21-32) L 12/18/21 06:15 Anion Gap 12.0 (6-13) 12/18/21 06:15 BUN 50 mg/dL (6-20) H 12/18/21 06:15 Creatinine 3.8 mg/dL (0.6-1.2) H 12/18/21 06:15 Estimated GFR (MDRD) 16 (>89) L 12/18/21 06:15 Glucose 126 mg/dL (70-100) H 12/18/21 06:15 Estimat Average Glucose 137 mg/dL (70-100) H 12/10/21 04:35 Hemoglobin A1c % 6.4 % (4.27-6.07) H 12/10/21 04:35 Calcium 9.3 mg/dL (8.5-10.3) 12/18/21 06:15 Phosphorus 4.1 mg/dL (2.5-4.6) 12/16/21 05:54 Magnesium 1.8 mg/dL (1.7-2.8) 12/21/21 17:27 Total Bilirubin 1.8 mg/dL (0.2-1.0) H 12/09/21 12:56 AST 13 IU/L (10-42) 12/09/21 12:56 ALT < 10 IU/L (10-60) L 12/09/21 12:56 Alkaline Phosphatase 60 IU/L (42-121) 12/09/21 12:56 Total Creatine Kinase 51 IU/L (22-269) 12/09/21 12:56 Troponin I High Sens 33.5 ng/L (2.3-19.7) H* 12/09/21 19:01 Total Protein 7.4 g/dL (6.7-8.2) 12/09/21 12:56 Albumin 4.1 g/dL (3.2-5.5) 12/09/21 12:56 Globulin 3.3 g/dL (2.1-4.2) 12/09/21 12:56 Albumin/Globulin Ratio 1.2 (1.0-2.2) 12/09/21 12:56 Lipase 35 U/L (22-51) 12/09/21 12:56 Urine Color YELLOW 12/09/21 13:59 Urine Clarity HAZY (CLEAR) 12/09/21 13:59 Urine pH 5.5 PH (5.0-7.5) 12/09/21 13:59 Ur Specific [place] >=1.030 (1.002-1.030) H 12/09/21 13:59 Urine Protein >=300 mg/dL (NEGATIVE) H 12/09/21 13:59 Urine Glucose (UA) NEGATIVE mg/dL (NEGATIVE) 12/09/21 13:59 Urine Ketones NEGATIVE mg/dL (NEGATIVE) 12/09/21 13:59 Urine Occult Blood MODERATE (NEGATIVE) H 12/09/21 13:59 Urine Nitrite NEGATIVE (NEGATIVE) 12/09/21 13:59 Urine Bilirubin NEGATIVE (NEGATIVE) 12/09/21 13:59 Urine Urobilinogen 0.2 (NORMAL) E.U./dL (NORMAL) 12/09/21 13:59 Ur Leukocyte Esterase NEGATIVE (NEGATIVE) 12/09/21 13:59 Urine RBC 11-25 /HPF (0-5) H 12/09/21 13:59 Urine WBC 6-10 /HPF (0-3) H 12/09/21 13:59 Ur Squamous Epith Cells RARE Squamous (<= Few) 12/09/21 13:59 Urine Bacteria Moderate /HPF (None Seen) H 12/09/21 13:59 Urine Casts 3-5 Granular Casts /LPF 12/09/21 13:59 Ur Microscopic Review INDICATED 12/09/21 13:59 Urine Culture Comments NOT INDICATED 12/09/21 13:59 Nasal Adenovirus (PCR) NOT DETECTED 12/09/21 13:59 Nasal B. parapertussis DNA (PCR) NOT DETECTED 12/09/21 13:59 Nasal Coronavir 229E PCR NOT DETECTED 12/09/21 13:59 Nasal Coronavir HKU1 PCR NOT DETECTED 12/09/21 13:59 Nasal Coronavir NL63 PCR NOT DETECTED 12/09/21 13:59 Nasal Coronavir OC43 PCR NOT DETECTED 12/09/21 13:59 Nasal Enterovir/Rhinovir PCR NOT DETECTED 12/09/21 13:59 Nasal Influenza B PCR NOT DETECTED 12/09/21 13:59 Nasal Influenza A PCR NOT DETECTED 12/09/21 13:59 Nasal Parainfluen 1 PCR NOT DETECTED 12/09/21 13:59 Nasal Parainfluen 2 PCR NOT DETECTED 12/09/21 13:59 Nasal Parainfluen 3 PCR NOT DETECTED 12/09/21 13:59 Nasal Parainfluen 4 PCR NOT DETECTED 12/09/21 13:59 Nasal RSV (PCR) NOT DETECTED 12/09/21 13:59 Nasal B.pertussis DNA PCR NOT DETECTED 12/09/21 13:59 Nasal C.pneumoniae (PCR) NOT DETECTED 12/09/21 13:59 T[place]anda Human Metapneumo PCR NOT DETECTED 12/09/21 13:59 Nasal M.pneumoniae (PCR) NOT DETECTED 12/09/21 13:59 Nasal SARS-CoV-2 (PCR) NOT DETECTED 12/09/21 13:59 Last Dose Date Not Reportable 12/20/21 12:00 Last Dose Time Not Reportable 12/20/21 12:00 Urine Opiates Screen NEGATIVE (NEGATIVE) 12/09/21 13:59 Ur Oxycodone Screen NEGATIVE (NEGATIVE) 12/09/21 13:59 Urine Methadone Screen NEGATIVE (NEGATIVE) 12/09/21 13:59 Ur Propoxyphene Screen NEGATIVE (NEGATIVE) 12/09/21 13:59 Ur Barbiturates Screen NEGATIVE (NEGATIVE) 12/09/21 13:59 Valproic Acid 31.0 ug/mL 12/20/21 12:00 Ur Tricyclics Screen NEGATIVE (NEGATIVE) 12/09/21 13:59 Ur Phencyclidine Scrn NEGATIVE (NEGATIVE) 12/09/21 13:59 Ur Amphetamine Screen NEGATIVE (NEGATIVE) 12/09/21 13:59 U Methamphetamines Scrn NEGATIVE (NEGATIVE) 12/09/21 13:59 U Benzodiazepines Scrn NEGATIVE (NEGATIVE) 12/09/21 13:59 Urine Cocaine Screen NEGATIVE (NEGATIVE) 12/09/21 13:59 U Cannabinoids Screen NEGATIVE (NEGATIVE) 12/09/21 13:59 - Procedures Procedures: Procedures [facility] (04/17/14) ABX Reporting Has patient been on IV antibiotics over the past 48 hours?: No Current Medications - Current Medications Current Medications: Active Medications Acetaminophen (Acetaminophen 325 Mg Tablet) 650 mg PO Q4HR PRN PRN Reason: Pain 1 to 4, or Fever Last Admin: 12/21/21 23:46 Dose: 650 mg Acetaminophen/Codeine Phosphate (Acetaminophen/Codeine 300 Mg/30 Mg Tablet) 0.5 tab PO QPM PRN PRN Reason: Severe Pain Last Admin: 12/17/21 21:23 Dose: 0.5 tab Apixaban (Apixaban 2.5 Mg Tablet) 2.5 mg PO BID [facility] Last Admin: 12/22/21 08:52 Dose: 2.5 mg Atorvastatin Calcium (Atorvastatin 40 Mg Tablet) 40 mg PO QPM [facility] Last Admin: 12/21/21 20:59 Dose: 40 mg Calcitriol (Calcitriol 0.25 Mcg Capsule) 0.5 mcg PO DAILY [facility] Last Admin: 12/22/21 08:52 Dose: 0.5 mcg Carbidopa/Levodopa (Carbidopa/Levodopa 25 Mg/250 Mg Tablet) 2 tab PO 0200,0800,1400,2000 [facility] Last Admin: 12/22/21 08:50 Dose: 2 tab Diltiazem HCl (Diltiazem Cd 180 Mg Capsule) 180 mg PO DAILY [facility] Last Admin: 12/22/21 08:52 Dose: 180 mg Divalproex Sodium (Divalproex Er 250 Mg Tablet) 500 mg PO BID [facility] Last Admin: 12/22/21 08:52 Dose: 500 mg Entacapone (Entacapone 200 Mg Tablet) 200 mg PO BID [facility] Last Admin: 12/22/21 08:52 Dose: Not Given Fluticasone Propionate (Fluticasone Nasal [place]) 1 sprays TAWANDA DAILY [facility] Last Admin: 12/22/21 08:53 Dose: 1 spr Insulin Aspart (Insulin Aspart 300 Unit/3 Ml Pen) 1 - 5 unit SUBQ 0800,1 200,1700,2100 [facility]; Protocol Last Admin: 12/22/21 11:51 Dose: 1 unit Levetiracetam (Levetiracetam 250 Mg Tablet) 500 mg PO DAILY [facility] Last Admin: 12/22/21 08:50 Dose: 500 mg Lidocaine (Lidocaine Patch 5%) 1 patch TOP DAILY PRN PRN Reason: PAIN Last Admin: 12/20/21 17:14 Dose: 1 patch Lorazepam (Lorazepam 2 Mg/Ml Vial) 1 mg IVP Q2H PRN PRN Reason: Seizure Last Admin: 12/10/21 08:37 Dose: 1 mg Magnesium Oxide (Magnesium Oxide 400 Mg Tablet) 400 mg PO BIDWM [facility] Last Admin: 12/22/21 08:51 Dose: 400 mg Metoprolol Tartrate (Metoprolol 5 Mg/5 Ml Vial) 5 mg IVP Q6H PRN PRN Reason: Tachycardia Multivitamins (Multivitamin Tablet) 1 tab PO DAILYWM [facility] Last Admin: 12/22/21 08:51 Dose: 1 tab Ondansetron HCl (Ondansetron 4 Mg/2 Ml Vial) 4 mg IVP Q6HR PRN PRN Reason: Nausea / Vomiting Pantoprazole Sodium (Pantoprazole 40 Mg Tablet) 40 mg PO BIDAC [facility] Last Admin: 12/22/21 06:37 Dose: 40 mg Polyethylene Glycol (Polyethylene Glycol 3350 17 Gm Packet) 17 gm PO DAILY [facility] Last Admin: 12/22/21 08:59 Dose: Not Given Senna (Senna 8.6 Mg Tablet) 8.6 mg PO DAILY PRN PRN Reason: Constipation Last Admin: 12/18/21 09:00 Dose: 8.6 mg Sodium Chloride (Sodium Chloride Flush 0.9% 10 Ml Syringe) 10 ml IVP PRN PRN PRN Reason: NEEDED PER PROVIDER ORDERS Last Admin: 12/15/21 13:49 Dose: 10 ml Sodium Chloride (Sodium Chloride Flush 0.9% 10 Ml Syringe) 10 ml IVP 0100,0900,1700 [facility] Last Admin: 12/22/21 08:54 Dose: 10 ml Tamsulosin HCl (Tamsulosin 0.4 Mg Capsule) 0.4 mg PO DAILY [facility] Last Admin: 12/22/21 08:51 Dose: 0.4 mg Omeprazole 20 mg PO BID 10/02/13 Atorvastatin Calcium 40 mg PO QPM 01/24/16 Carbidopa/Levodopa [Carbidopa-Levodopa 25-250 Tab] 2 each PO QID 01/05/20 Rivaroxaban [Xarelto] 15 mg PO QDDINNER 07/23/20 Entacapone [Comtan] 200 mg PO BID 04/02/21 Multivit-Min/Folic/Vit K/Lycop [One Daily Men's 50 Plus D3 Tab] 1 each PO DAILY 04/02/21 calcitrioL [Rocaltrol] 0.5 mcg PO DAILY 04/02/21 Insulin Glargine [Lantus Solostar] 8 unit SQ HS 04/23/21 Senna [Senokot] 8.6 mg PO DAILY PRN 04/23/21 Albuterol Sulfate [Proair Hfa Inhaler] 2 puffs INH Q4HR PRN 11/18/21 Fluticasone [Flonase] 2 spray TAWANDA DAILY 11/18/21 diltiaZEM CD [Cardizem Cd] 180 mg PO DAILY 12/09/21
[2021-12-22] MEDS: ACETAMINOPHEN 325 MG TABLET PO PRN (13:40)
[2021-12-22] MEDS: ATORVASTATIN 40 MG TABLET PO SCH (20:41)
[2021-12-23] MEDS: SODIUM CHLORIDE FLUSH 0.9% 10 ML SYRINGE IVP SCH ×3 (00:01→17:03)
[2021-12-23] MEDS: CARBIDOPA/LEVODOPA 25 MG/250 MG TABLET PO SCH ×4 (01:19→20:51)
[2021-12-23] MEDS: PANTOPRAZOLE 40 MG TABLET PO SCH ×2 (05:43→16:37)
[2021-12-23] MEDS ORDERED: CHOLECALCIFEROL 25 MCG TABLET PO SCH (09:00)
[2021-12-23] MEDS: polyethylene glycoL 3350 17 GM PACKET PO SCH (09:23)
[2021-12-23] MEDS: TAMSULOSIN 0.4 MG CAPSULE PO SCH (09:24)
[2021-12-23] MEDS: calcitrioL 0.25 MCG CAPSULE PO SCH (09:24)
[2021-12-23] MEDS: DIVALPROEX ER 250 MG TABLET PO SCH ×2 (09:25→20:51)
[2021-12-23] MEDS: diltiaZEM CD 180 MG CAPSULE PO SCH (09:25)
[2021-12-23] MEDS: MULTIVITAMIN TABLET PO SCH (09:25)
[2021-12-23] MEDS: levETIRAcetam 250 MG TABLET PO SCH (09:26)
[2021-12-23] MEDS: MAGNESIUM OXIDE 400 MG TABLET PO SCH ×2 (09:26→17:03)
[2021-12-23] MEDS: APIXABAN 2.5 MG TABLET PO SCH ×2 (09:27→20:52)
[2021-12-23] MEDS: FLUTICASONE NASAL SPRAY NAS SCH (09:28)
[2021-12-23] MEDS: ENTACAPONE 200 MG TABLET PO SCH ×2 (09:30→20:58)
[2021-12-23] MEDS: INSULIN ASPART 300 UNIT/3 ML PEN SUBQ SCH ×4 (09:32→20:57)
--- NOTE | 2021-12-23 12:14 | PROVIDER PROGRESS NOTE ---
Progress Note December 23, 2021 12:08 PM Mr. Davidson was seen this morning. He is stable. No new events overnight from the hospitalist. Physical therapy reports that he is slowly progressing. He wore shoes for the first time yesterday and that allowed him to have less toe walking. He still needs some contact-guard assist. Unfortunately Mr. Davidson is profoundly deaf and does not have any batteries for his hearing aids and we have to do everything with writing on paper. He keeps on asking me to please get them batteries. Otherwise stable. Active Medications Acetaminophen (Acetaminophen 325 Mg Tablet) 650 mg PO Q4HR PRN PRN Reason: Pain 1 to 4, or Fever Last Admin: 12/22/21 13:40 Dose: 650 mg Acetaminophen/Codeine Phosphate (Acetaminophen/Codeine 300 Mg/30 Mg Tablet) 0.5 tab PO QPM PRN PRN Reason: Severe Pain Last Admin: 12/17/21 21:23 Dose: 0.5 tab Apixaban (Apixaban 2.5 Mg Tablet) 2.5 mg PO BID [facility] Last Admin: 12/23/21 09:27 Dose: 2.5 mg Atorvastatin Calcium (Atorvastatin 40 Mg Tablet) 40 mg PO QPM [facility] Last Admin: 12/22/21 20:41 Dose: 40 mg Calcitriol (Calcitriol 0.25 Mcg Capsule) 0.5 mcg PO DAILY [facility] Last Admin: 12/23/21 09:24 Dose: 0.5 mcg Carbidopa/Levodopa (Carbidopa/Levodopa 25 Mg/250 Mg Tablet) 2 tab PO 0200,0800,1400,2000 [facility] Last Admin: 12/23/21 09:24 Dose: 2 tab Diltiazem HCl (Diltiazem Cd 180 Mg Capsule) 180 mg PO DAILY [facility] Last Admin: 12/23/21 09:25 Dose: 180 mg Divalproex Sodium (Divalproex Er 250 Mg Tablet) 500 mg PO BID [facility] Last Admin: 12/23/21 09:25 Dose: 500 mg Entacapone (Entacapone 200 Mg Tablet) 200 mg PO BID [facility] Last Admin: 12/23/21 09:30 Dose: Not Given Fluticasone Propionate (Fluticasone Nasal [place]) 1 sprays TAWANDA DAILY [facility] Last Admin: 12/23/21 09:28 Dose: 1 spr Insulin Aspart (Insulin Aspart 300 Unit/3 Ml Pen) 1 - 5 unit SUBQ 0800,1200,1700,2100 [facility]; Protocol Last Admin: 12/23/21 11:54 Dose: 1 unit Levetiracetam (Levetiracetam 250 Mg Tablet) 500 mg PO DAILY [facility] Last Admin: 12/23/21 09:26 Dose: 500 mg Lidocaine (Lidocaine Patch 5%) 1 patch TOP DAILY PRN PRN Reason: PAIN Last Admin: 12/20/21 17:14 Dose: 1 patch Lorazepam (Lorazepam 2 Mg/Ml Vial) 1 mg IVP Q2H PRN PRN Reason: Seizure Last Admin: 12/10/21 08:37 Dose: 1 mg Magnesium Oxide (Magnesium Oxide 400 Mg Tablet) 400 mg PO BIDWM [facility] Last Admin: 12/23/21 09:26 Dose: 400 mg Metoprolol Tartrate (Metoprolol 5 Mg/5 Ml Vial) 5 mg IVP Q6H PRN PRN Reason: Tachycardia Multivitamins (Multivitamin Tablet) 1 tab PO DAILYWM [facility] Last Admin: 12/23/21 09:25 Dose: 1 tab Ondansetron HCl (Ondansetron 4 Mg/2 Ml Vial) 4 mg IVP Q6HR PRN PRN Reason: Nausea / Vomiting Pantoprazole Sodium (Pantoprazole 40 Mg Tablet) 40 mg PO BIDAC [facility] Last Admin: 12/23/21 05:43 Dose: 40 mg Polyethylene Glycol (Polyethylene Glycol 3350 17 Gm Packet) 17 gm PO DAILY [facility] Last Admin: 12/23/21 09:23 Dose: 17 gm Senna (Senna 8.6 Mg Tablet) 8.6 mg PO DAILY PRN PRN Reason: Constipation Last Admin: 12/18/21 09:00 Dose: 8.6 mg Sodium Chloride (Sodium Chloride Flush 0.9% 10 Ml Syringe) 10 ml IVP PRN PRN PRN Reason: NEEDED PER PROVIDER ORDERS Last Admin: 12/15/21 13:49 Dose: 10 ml Sodium Chloride (Sodium Chloride Flush 0.9% 10 Ml Syringe) 10 ml IVP 0100,0900,1700 [facility] Last Admin: 12/23/21 09:32 Dose: 10 ml Tamsulosin HCl (Tamsulosin 0.4 Mg Capsule) 0.4 mg PO DAILY [facility] Last Admin: 12/23/21 09:24 Dose: 0.4 mg Omeprazole 20 mg PO BID 10/02/13 Atorvastatin Calcium 40 mg PO QPM 01/24/16 Carbidopa/Levodopa [Carbidopa-Levodopa 25-250 Tab] 2 each PO QID 01/05/20 Rivaroxaban [Xarelto] 15 mg PO QDDINNER 07/23/20 Entacapone [Comtan] 200 mg PO BID 04/02/21 Multivit-Min/Folic/Vit K/Lycop [One Daily Men's 50 Plus D3 Tab] 1 each PO DAILY 04/02/21 calcitrioL [Rocaltrol] 0.5 mcg PO DAILY 04/02/21 Insulin Glargine [Lantus Solostar] 8 unit SQ HS 04/23/21 Senna [Senokot] 8.6 mg PO DAILY PRN 04/23/21 Albuterol Sulfate [Proair Hfa Inhaler] 2 puffs INH Q4HR PRN 11/18/21 Fluticasone [Flonase] 2 spray TAWANDA DAILY 11/18/21 diltiaZEM CD [Cardizem Cd] 180 mg PO DAILY 12/09/21 Temperature 36.4. Pulse 67. Blood pressure 123/70. Respirations 18. 100% on room air. Profoundly deaf elderly gentleman at 6 feet 3 inches tall and 105 kg. Speech is slurred, slightly garbled but lucid and able to make himself clear to me. U nfortunately I am not able to make myself clear to him even with writing on paper. Neck is supple. Lungs are clear. Regular rate and rhythm. No reported arrhythmias during his stay. Abdomen is soft, nontender. Extremities are without edema. Neurologically he is deaf, but oriented to person place and time. Nursing reports he can get easily confused and is forgetful. Cannot remember what you told him. But he is moving upper extremities with purpose as he is reaching for glasses, bring in a jug of water to his lips to drink, speech is slurred and chronically so. He requires minimum assist for him to sit up. He needs to be cued to get himself to the side of the bed and stand and put his feet on the floor. Has slight foot right foot drag. Glucose yesterday was 113, 161, 136, 152. Glucose today is 126 and 154. Assessment/plan 1. New seizure disorder. He had several witnessed seizures on admission, and in spite of Keppra had another seizure. Repeat CT was done and there were no acute findings. Depakote was added to his Keppra. Since that time the patient has not had any seizures. 2. Frequent falls. He has a history of frequent falls at home and in the past. He has been hospitalized elsewhere for seizures and needed SNF and PT for rehab. With this admission he had a ground-level fall before his seizures were witnessed. He continues to need rehab because of parkinsonian gait, bad balance, intermittent confusion, poor vision, and deafness. He has been working with physical therapy and physical therapy recommends discharge to SNF for rehab. From there he will have long-term placement. We have already sent out a DMV form for him to allow longer drive and he is aware of that. 3. Confusion. This comes and goes. But he has been stable for the last few d ays. During this hospitalization we attributed to some of that with the new medications including the Depakote, Ativan, and Keppra. 4. Chronic kidney disease that is stable. He has an AV fistula in place for when he needs dialysis. 5. Parkinson's disease. On his home meds. Shuffling gait, walks slouched over, toe walks. Working with physical therapy and slowly, slowly improving. Plan is for discharge to SNF then LTAC 6. Diabetes mellitus. A1c is 6.4%. Here Lantus 5 units has been causing hypoglycemia so that was discontinued. He is only on sliding scale. When he is discharged she will most likely need just diet control. Overall he has been eating 1 unit to 2 units before meals once or twice a day. At home he said he was taking Lantus 8 units at night. I will not be sending him home with that, and will probably use metformin when he is transferred. 7. Chronic atrial fibrillation. Rate is controlled and he is on anticoagulation. 8. Profound deafness. I will try and find batteries for him. 9. Hypertension is controlled on his home medications. 10. Chronic low back pain. He was getting Tylenol with codeine but that worsened his confusion so now he is on lidocaine patch. Pain is controlled. 11. GERD. On Protonix. Stable. No change in medication for today.
[2021-12-23] MEDS: ACETAMINOPHEN 325 MG TABLET PO PRN (12:49)
[2021-12-23] MEDS: ATORVASTATIN 40 MG TABLET PO SCH (20:52)
[2021-12-23] MEDS: ACETAMINOPHEN/CODEINE 300 MG/30 MG TABLET PO PRN (22:08)
[2021-12-24] MEDS: ACETAMINOPHEN 325 MG TABLET PO PRN ×4 (00:37→16:55)
[2021-12-24] MEDS: SODIUM CHLORIDE FLUSH 0.9% 10 ML SYRINGE IVP SCH ×3 (00:44→16:28)
[2021-12-24] MEDS: CARBIDOPA/LEVODOPA 25 MG/250 MG TABLET PO SCH ×4 (01:47→20:26)
[2021-12-24] MEDS: PANTOPRAZOLE 40 MG TABLET PO SCH ×2 (04:58→16:26)
[2021-12-24] MEDS: polyethylene glycoL 3350 17 GM PACKET PO SCH (10:47)
[2021-12-24] MEDS: APIXABAN 2.5 MG TABLET PO SCH ×2 (10:48→20:26)
[2021-12-24] MEDS: TAMSULOSIN 0.4 MG CAPSULE PO SCH (10:48)
[2021-12-24] MEDS: diltiaZEM CD 180 MG CAPSULE PO SCH (10:48)
[2021-12-24] MEDS: calcitrioL 0.25 MCG CAPSULE PO SCH (10:48)
[2021-12-24] MEDS: levETIRAcetam 250 MG TABLET PO SCH (10:48)
[2021-12-24] MEDS: DIVALPROEX ER 250 MG TABLET PO SCH ×2 (10:49→20:25)
[2021-12-24] MEDS: MULTIVITAMIN TABLET PO SCH (10:49)
[2021-12-24] MEDS: MAGNESIUM OXIDE 400 MG TABLET PO SCH ×2 (10:50→16:55)
[2021-12-24] MEDS: INSULIN ASPART 300 UNIT/3 ML PEN SUBQ SCH ×4 (10:51→20:53)
[2021-12-24] MEDS: FLUTICASONE NASAL SPRAY NAS SCH (10:51)
[2021-12-24] MEDS: ENTACAPONE 200 MG TABLET PO SCH ×2 (10:52→20:26)
--- NOTE | 2021-12-24 12:00 | PROVIDER PROGRESS NOTE ---
Assessment/Plan - Problem List (1) Seizure Assessment/Plan: He had several witnessed seizures on admission, and in spite of Keppra had another seizure. Repeat CT was done and there were no acute findings. Depakote was added to his Keppra. Since that time the patient has not had any seizures. 2. Frequent falls. He has a history of frequent falls at home and in the past. He has been hospitalized elsewhere for seizures and needed SNF and PT for rehab. Before this admission, he had a ground-level fall before his seizures were witnessed. He continues to need rehab because of parkinsonian gait, bad balance, intermittent confusion, deconditioning, poor vision, and deafness. He has been working with physical therapy and physical therapy recommends discharge to SNF for rehab. From there he will have long-term placement. We have already sent out a DMV form for him to no longer allow drive and he is aware of that. 3. Confusion. This comes and goes. But he has been stable for the last few days. During this hospitalization we attributed to some of that with the new medications including the Depakote, Ativan, and Keppra. 4. Chronic kidney disease That is stable. He has an AV fistula in place for when he needs dialysis. Will start Metformin while here (see #6). His BMP is done intermittently. 5. Parkinson's disease. He is on his home meds. He has a shuffling gait, walks slouched over, toe walks. He is working with physical therapy and slowly, slowly improving. Plan is for discharge to SNF then LTAC, no longer to live alone at home. 6. Diabetes mellitus. A1c is 6.4%. At home he was supposedly taking Lantus 8U qpm. Here Lantus 5 units was causing hypoglycemia so that was discontinued. He is only on sliding scale. Overall he has been getting 1 unit to 2 units before meals once or twice a day. Will start Metformin now. When he is discharged, he will most likely need diet and Metformin. 7. Chronic atrial fibrillation. Rate is controlled and he is on anticoagulation. 8. Profound deafness. We will try and find batteries for him. Otherwise, all communication to him is with writing, but he speaks his responses. 9. Hypertension BP is controlled on his home medications. 10. Chronic low back pain. He was getting Tylenol with codeine but that worsened his confusion so now he is on topical Lidocaine patch. Pain is controlled. 11. GERD. He is satble on Protonix. - Current Meds Current Meds: Current Medications Generic Name Dose Route Start Last Admin Trade Name Freq PRN Reason Stop Dose Admin Acetaminophen 650 mg 12/09/21 15:00 12/24/21 11:30 Acetaminophen 325 Mg Tablet PO 650 mg Q4HR PRN Administration Pain 1 to 4, or Fever Acetaminophen/Codeine Phosphate 0.5 tab 12/12/21 14:18 12/23/21 22:08 Acetaminophen/Codeine 300 Mg/30 Mg Tablet PO 0.5 tab QPM PRN Administration Severe Pain Apixaban 2.5 mg 12/12/21 21:00 12/24/21 10:48 Apixaban 2.5 Mg Tablet PO 2.5 mg BID PEREZ Administration Atorvastatin Calcium 40 mg 12/10/21 21:00 12/23/21 20:52 Atorvastatin 40 Mg Tablet PO 40 mg QPM PEREZ Administration Calcitriol 0.5 mcg 12/11/21 09:00 12/24/21 10:48 Calcitriol 0.25 Mcg Capsule PO 0.5 mcg DAILY PEREZ Administration Carbidopa/Levodopa 2 tab 12/10/21 15:00 12/24/21 10:50 Carbidopa/Levodopa 25 Mg/250 Mg Tablet PO 2 tab 0200,0800,1400,2000 PEREZ Administration Diltiazem HCl 180 mg 12/11/21 09:00 12/24/21 10:48 Diltiazem Cd 180 Mg Capsule PO 180 mg DAILY PEREZ Administration Divalproex Sodium 500 mg 12/13/21 09:00 12/24/21 10:49 Divalproex Er 250 Mg Tablet PO 500 mg BID PEREZ Administration Entacapone 200 mg 12/10/21 21:00 12/24/21 10:52 Entacapone 200 Mg Tablet PO Not Given BID PEREZ Fluticasone Propionate 1 sprays 12/11/21 09:00 12/24/21 10:51 Fluticasone Nasal [place] TAWANDA 1 spr DAILY PEREZ Administration Insulin Aspart 1 - 5 unit 12/09/21 17:00 12/24/21 11:29 Insulin Aspart 300 Unit/3 Ml Pen SUBQ 1 unit 0800,1200,1700,2100 PEREZ Administration Protocol Levetiracetam 500 mg 12/14/21 09:00 12/24/21 10:48 Levetiracetam 250 Mg Tablet PO 500 mg DAILY PEREZ Administration Lidocaine 1 patch 12/12/21 14:19 12/20/21 17:14 Lidocaine Patch 5% TOP 1 patch DAILY PRN Administration PAIN Lorazepam 1 mg 12/09/21 16:25 12/10/21 08:37 Lorazepam 2 Mg/Ml Vial IVP 1 mg Q2H PRN Administration Seizure Magnesium Oxide 400 mg 12/19/21 17:00 12/24/21 10:50 Magnesium Oxide 400 Mg Tablet PO 400 mg BIDWM PEREZ Administration Multivitamins 1 tab 12/11/21 08:00 12/24/21 10:49 Multivitamin Tablet PO 1 tab DAILYWM PEREZ Administration Pantoprazole Sodium 40 mg 12/10/21 16:00 12/24/21 04:58 Pantoprazole 40 Mg Tablet PO 40 mg BIDAC PEREZ Administration Polyethylene Glycol 17 gm 12/17/21 09:00 12/24/21 10:47 Polyethylene Glycol 3350 17 Gm Packet PO 17 gm DAILY PEREZ Administration Senna 8.6 mg 12/10/21 14:29 12/18/21 09:00 Senna 8.6 Mg Tablet PO 8.6 mg DAILY PRN Administration Constipation Sodium Chloride 10 ml 12/09/21 15:00 12/15/21 13:49 Sodium Chloride Flush 0.9% 10 Ml Syringe IVP 10 ml PRN PRN Administration NEEDED PER PROVIDER ORDERS Sodium Chloride 10 ml 12/09/21 17:00 12/24/21 10:53 Sodium Chloride Flush 0.9% 10 Ml Syringe IVP 10 ml 0100,0900,1700 PEREZ Administration Tamsulosin HCl 0.4 mg 12/11/21 09:00 12/24/21 10:48 Tamsulosin 0.4 Mg Capsule PO 0.4 mg DAILY PEREZ Administration - Lab Result Fish Bone Diagrams: 12/19/21 04:46 12/18/21 06:15 - Additional Planning My Orders: My Active Orders 12/25/21 05:00 BMP - BASIC METABOLIC PANEL [CHEM] DAILYLAB CBC - COMP BLD CT W/AUTO DIFF [HEME] DAILYLAB Subjective - Subjective Patient Reports: Feeling Better, Resting Comfortably Nursing Reports: Other (PT reported his gait is better when walks with shoes on the past 2 days.) Objective Vital Signs: Vital Signs - 24 hr 12/23/21 12/23/21 12/23/21 12:55 13:00 15:08 Temperature 36.6 C 36.4 C L Heart Rate [ 82 71 60 Brachial] Respiratory 20 17 Rate Blood Pressure 84/59 L 106/53 L 118/70 [Left Brachial artery] O2 Saturation 98 100 12/23/21 12/24/21 12/24/21 19:02 00:16 04:54 Temperature 36.3 C L 36.6 C 36.5 C Heart Rate [ 57 L 94 56 L Brachial] Respiratory 16 16 14 Rate Blood Pressure 107/63 138/61 H 100/51 L [Left Brachial artery] O2 Saturation 100 100 99 12/24/21 08:15 Temperature 36.6 C Heart Rate [ 80 Brachial] Respiratory 18 Rate Blood Pressure 140/79 H [Left Brachial artery] O2 Saturation 100 Oxygen O2 Source Room air I&O (Last 24 Hrs): Intake and Output Totals x24h 12/22/21 12/23/21 12/24/21 23:59 23:59 23:59 Intake Total 1090 920 840 Output Total 1650 1400 750 Balance -560 -480 90 General: Alert HEENT: Mucous membr. moist/pink Neck: Supple Neuro: Alert, Other ([place]) Cardiovascular: No murmurs Respiratory: No respiratory distress Abdomen: Soft, No tenderness Extremities: No clubbing, No edema - Results Results: Laboratory Results WBC 5.8 x10^3/uL (4.8-10.8) 12/19/21 04:46 RBC 3.24 10^6/uL (4.70-6.10) L 12/19/21 04:46 Hgb 9.7 g/dL (14.0-18.0) L 12/19/21 04:46 Hct 30.3 % (42.0-52.0) L 12/19/21 04:46 MCV 93.5 fL (80.0-94.0) 12/19/21 04:46 MCH 29.9 pg (27.0-31.0) 12/19/21 04:46 MCHC 32.0 g/dL (32.0-36.0) 12/19/21 04:46 RDW 14.4 % (12.0-15.0) 12/19/21 04:46 Plt Count 178 10^3/uL (130-450) 12/19/21 04:46 MPV 11.8 fL (7.4-11.4) H 12/19/21 04:46 Neut # (Auto) 3.9 10^3/uL (1.5-6.6) 12/19/21 04:46 Lymph # (Auto) 1.2 10^3/uL (1.5-3.5) L 12/19/21 04:46 [place] # (Auto) 0.6 10^3/uL (0.0-1.0) 12/19/21 04:46 Eos # (Auto) 0.1 10^3/uL (0.0-0.7) 12/19/21 04:46 Baso # (Auto) 0.0 10^3/uL (0.0-0.1) 12/19/21 04:46 Absolute Nucleated RBC 0.00 x10^3/uL 12/19/21 04:46 Nucleated RBC % 0.0 /100WBC 12/19/21 04:46 APTT 28.1 secs (24.9-33.3) 12/10/21 09:50 Sodium 138 mmol/L (135-145) 12/18/21 06:15 Potassium 4.5 mmol/L (3.5-5.0) 12/18/21 06:15 Chloride 108 mmol/L (101-111) 12/18/21 06:15 Carbon Dioxide 18 mmol/L (21-32) L 12/18/21 06:15 Anion Gap 12.0 (6-13) 12/18/21 06:15 BUN 50 mg/dL (6-20) H 12/18/21 06:15 Creatinine 3.8 mg/dL (0.6-1.2) H 12/18/21 06:15 Estimated GFR (MDRD) 16 (>89) L 12/18/21 06:15 Glucose 126 mg/dL (70-100) H 12/18/21 06:15 POC Whole Bld Glucose 163 mg/dL (70 - 100) H 12/24/21 11:19 Estimat Average Glucose 137 mg/dL (70-100) H 12/10/21 04:35 Hemoglobin A1c % 6.4 % (4.27-6.07) H 12/10/21 04:35 Calcium 9.3 mg/dL (8.5-10.3) 12/18/21 06:15 Phosphorus 4.1 mg/dL (2.5-4.6) 12/16/21 05:54 Magnesium 1.8 mg/dL (1.7-2.8) 12/21/21 17:27 Total Bilirubin 1.8 mg/dL (0.2-1.0) H 12/09/21 12:56 AST 13 IU/L (10-42) 12/09/21 12:56 ALT < 10 IU/L (10-60) L 12/09/21 12:56 Alkaline Phosphatase 60 IU/L (42-121) 12/09/21 12:56 Total Creatine Kinase 51 IU/L (22-269) 12/09/21 12:56 Troponin I High Sens 33.5 ng/L (2.3-19.7) H* 12/09/21 19:01 Total Protein 7.4 g/dL (6.7-8.2) 12/09/21 12:56 Albumin 4.1 g/dL (3.2-5.5) 12/09/21 12:56 Globulin 3.3 g/dL (2.1-4.2) 12/09/21 12:56 Albumin/Globulin Ratio 1.2 (1.0-2.2) 12/09/21 12:56 Lipase 35 U/L (22-51) 12/09/21 12:56 Urine Color YELLOW 12/09/21 13:59 Urine Clarity HAZY (CLEAR) 12/09/21 13:59 Urine pH 5.5 PH (5.0-7.5) 12/09/21 13:59 Ur Specific [place] >=1.030 (1.002-1.030) H 12/09/21 13:59 Urine Protein >=300 mg/dL (NEGATIVE) H 12/09/21 13:59 Urine Glucose (UA) NEGATIVE mg/dL (NEGATIVE) 12/09/21 13:59 Urine Ketones NEGATIVE mg/dL (NEGATIVE) 12/09/21 13:59 Urine Occult Blood MODERATE (NEGATIVE) H 12/09/21 13:59 Urine Nitrite NEGATIVE (NEGATIVE) 12/09/21 13:59 Urine Bilirubin NEGATIVE (NEGATIVE) 12/09/21 13:59 Urine Urobilinogen 0.2 (NORMAL) E.U./dL (NORMAL) 12/09/21 13:59 Ur Leukocyte Esterase NEGATIVE (NEGATIVE) 12/09/21 13:59 Urine RBC 11-25 /HPF (0-5) H 12/09/21 13:59 Urine WBC 6-10 /HPF (0-3) H 12/09/21 13:59 Ur Squamous Epith Cells RARE Squamous (<= Few) 12/09/21 13:59 Urine Bacteria Moderate /HPF (None Seen) H 12/09/21 13:59 Urine Casts 3-5 Granular Casts /LPF 12/09/21 13:59 Ur Microscopic Review INDICATED 12/09/21 13:59 Urine Culture Comments NOT INDICATED 12/09/21 13:59 Nasal Adenovirus (PCR) NOT DETECTED 12/09/21 13:59 Nasal B. parapertussis DNA (PCR) NOT DETECTED 12/09/21 13:59 Nasal Coronavir 229E PCR NOT DETECTED 12/09/21 13:59 Nasal Coronavir HKU1 PCR NOT DETECTED 12/09/21 13:59 Nasal Coronavir NL63 PCR NOT DETECTED 12/09/21 13:59 Nasal Coronavir OC43 PCR NOT DETECTED 12/09/21 13:59 Nasal Enterovir/Rhinovir PCR NOT DETECTED 12/09/21 13:59 Nasal Influenza B PCR NOT DETECTED 12/09/21 13:59 Nasal Influenza A PCR NOT DETECTED 12/09/21 13:59 Nasal Parainfluen 1 PCR NOT DETECTED 12/09/21 13:59 Nasal Parainfluen 2 PCR NOT DETECTED 12/09/21 13:59 Nasal Parainfluen 3 PCR NOT DETECTED 12/09/21 13:59 Nasal Parainfluen 4 PCR NOT DETECTED 12/09/21 13:59 Nasal RSV (PCR) NOT DETECTED 12/09/21 13:59 Nasal B.pertussis DNA PCR NOT DETECTED 12/09/21 13:59 Nasal C.pneumoniae (PCR) NOT DETECTED 12/09/21 13:59 [place] Human Metapneumo PCR NOT DETECTED 12/09/21 13:59 Nasal M.pneumoniae (PCR) NOT DETECTED 12/09/21 13:59 Nasal SARS-CoV-2 (PCR) NOT DETECTED 12/09/21 13:59 Last Dose Date Not Reportable 12/20/21 12:00 Last Dose Time Not Reportable 12/20/21 12:00 Urine Opiates Screen NEGATIVE (NEGATIVE) 12/09/21 13:59 Ur Oxycodone Screen NEGATIVE (NEGATIVE) 12/09/21 13:59 Urine Methadone Screen NEGATIVE (NEGATIVE) 12/09/21 13:59 Ur Propoxyphene Screen NEGATIVE (NEGATIVE) 12/09/21 13:59 Ur Barbiturates Screen NEGATIVE (NEGATIVE) 12/09/21 13:59 Valproic Acid 31.0 ug/mL 12/20/21 12:00 Ur Tricyclics Screen NEGATIVE (NEGATIVE) 12/09/21 13:59 Ur Phencyclidine Scrn NEGATIVE (NEGATIVE) 12/09/21 13:59 Ur Amphetamine Screen NEGATIVE (NEGATIVE) 12/09/21 13:59 U Methamphetamines Scrn NEGATIVE (NEGATIVE) 12/09/21 13:59 U Benzodiazepines Scrn NEGATIVE (NEGATIVE) 12/09/21 13:59 Urine Cocaine Screen NEGATIVE (NEGATIVE) 12/09/21 13:59 U Cannabinoids Screen NEGATIVE (NEGATIVE) 12/09/21 13:59 - Procedures Procedures: Procedures [facility] (04/17/14)
[2021-12-24] MEDS: ATORVASTATIN 40 MG TABLET PO SCH (20:26)
[2021-12-25] MEDS: CARBIDOPA/LEVODOPA 25 MG/250 MG TABLET PO SCH ×4 (01:13→20:47)
[2021-12-25] MEDS: SODIUM CHLORIDE FLUSH 0.9% 10 ML SYRINGE IVP SCH ×3 (01:13→17:24)
[2021-12-25] MEDS: ACETAMINOPHEN 325 MG TABLET PO PRN (01:13)
[2021-12-25] MEDS: PANTOPRAZOLE 40 MG TABLET PO SCH ×2 (05:51→16:21)
[2021-12-25 06:16] LABS: CALCIUM 9.2 mg/dL (8.5-10.3); CREATININE 4.2 mg/dL (0.6-1.2); POTASSIUM 4.4 mmol/L (3.5-5.0)
[2021-12-25 06:41] LABS: BASOPHILS # (AUTO) 0.1 10^3/uL (0.0-0.1); BASOPHILS % (AUTO) 0.8 %; EOSINOPHILS # (AUTO) 0.1 10^3/uL (0.0-0.7); EOSINOPHILS % (AUTO) 1.5 %; HCT - HEMATOCRIT 34.2 % (42.0-52.0); HGB - HEMOGLOBIN 10.6 g/dL (14.0-18.0); LYMPHOCYTES # (AUTO) 1.6 10^3/uL (1.5-3.5); LYMPHOCYTES % (AUTO) 24.1 %; MEAN CORPUSCULAR HEMOGLOBIN 29.4 pg (27.0-31.0); MEAN PLATELET VOLUME 12.4 fL (7.4-11.4); MONOCYTES # (AUTO) 0.7 10^3/uL (0.0-1.0); MONOCYTES % (AUTO) 11.1 %; NEUTROPHILS # (AUTO) 4.1 10^3/uL (1.5-6.6); PLT - PLATELET COUNT 177 10^3/uL (130-450); RED CELL DISTRIBUTION WIDTH 14.9 % (12.0-15.0); WHITE BLOOD COUNT 6.6 x10^3/uL (4.8-10.8)
[2021-12-25] MEDS: polyethylene glycoL 3350 17 GM PACKET PO SCH (07:58)
[2021-12-25] MEDS: MULTIVITAMIN TABLET PO SCH (07:59)
[2021-12-25] MEDS: diltiaZEM CD 180 MG CAPSULE PO SCH (07:59)
[2021-12-25] MEDS: MAGNESIUM OXIDE 400 MG TABLET PO SCH ×2 (07:59→17:24)
[2021-12-25] MEDS: calcitrioL 0.25 MCG CAPSULE PO SCH (07:59)
[2021-12-25] MEDS: APIXABAN 2.5 MG TABLET PO SCH ×2 (08:00→20:47)
[2021-12-25] MEDS: levETIRAcetam 250 MG TABLET PO SCH (08:00)
[2021-12-25] MEDS: TAMSULOSIN 0.4 MG CAPSULE PO SCH (08:01)
[2021-12-25] MEDS: FLUTICASONE NASAL SPRAY NAS SCH (08:03)
[2021-12-25] MEDS: DIVALPROEX ER 250 MG TABLET PO SCH ×2 (08:03→20:47)
[2021-12-25] MEDS: ENTACAPONE 200 MG TABLET PO SCH ×2 (08:04→20:48)
[2021-12-25] MEDS: INSULIN ASPART 300 UNIT/3 ML PEN SUBQ SCH ×4 (08:04→20:48)
--- NOTE | 2021-12-25 14:45 | PROVIDER PROGRESS NOTE ---
Subjective - Prog Note Date Prog Note Date: 12/25/21 Prog Note Time: 14:44 - Subjective Subjective: He has not had any more events overnight. We discussed starting him on metformin yesterday. But in view of his creatinine being so high metformin has not been ordered. Patient's intake and output is stable. No change in status with IV fluid balance yet his creatinine went from 3.8-4.2. Blood pressure is 111/60. He has been in the 140s consistently. He himself has no new complaints. The only thing he would like me to do is get better for his oatmeal. He also wanted me to heat it up. Current Medications - Current Medications Current Medications: Active Medications Acetaminophen (Acetaminophen 325 Mg Tablet) 650 mg PO Q4HR PRN PRN Reason: Pain 1 to 4, or Fever Last Admin: 12/25/21 01:13 Dose: 650 mg Acetaminophen/Codeine Phosphate (Acetaminophen/Codeine 300 Mg/30 Mg Tablet) 0.5 tab PO QPM PRN PRN Reason: Severe Pain Last Admin: 12/23/21 22:08 Dose: 0.5 tab Apixaban (Apixaban 2.5 Mg Tablet) 2.5 mg PO BID [facility] Last Admin: 12/25/21 08:00 Dose: 2.5 mg Atorvastatin Calcium (Atorvastatin 40 Mg Tablet) 40 mg PO QPM [facility] Last Admin: 12/24/21 20:26 Dose: 40 mg Calcitriol (Calcitriol 0.25 Mcg Capsule) 0.5 mcg PO DAILY [facility] Last Admin: 12/25/21 07:59 Dose: 0.5 mcg Carbidopa/Levodopa (Carbidopa/Levodopa 25 Mg/250 Mg Tablet) 2 tab PO 0200,0800,1400,2000 [facility] Last Admin: 12/25/21 08:00 Dose: 2 tab Diltiazem HCl (Diltiazem Cd 180 Mg Capsule) 180 mg PO DAILY [facility] Last Admin: 12/25/21 07:59 Dose: 180 mg Divalproex Sodium (Divalproex Er 250 Mg Tablet) 500 mg PO BID [facility] Last Admin: 12/25/21 08:03 Dose: 500 mg Entacapone (Entacapone 200 Mg Tablet) 200 mg PO BID [facility] Last Admin: 12/25/21 08:04 Dose: Not Given Fluticasone Propionate (Fluticasone Nasal [place]) 1 sprays TAWANDA DAILY [facility] Last Admin: 12/25/21 08:03 Dose: 1 spr Insulin Aspart (Insulin Aspart 300 Unit/3 Ml Pen) 1 - 5 unit SUBQ 0800,1200,1700,2100 [facility]; Protocol Last Admin: 12/25/21 14:41 Dose: Not Given Levetiracetam (Levetiracetam 250 Mg Tablet) 500 mg PO DAILY [facility] Last Admin: 12/25/21 08:00 Dose: 500 mg Lidocaine (Lidocaine Patch 5%) 1 patch TOP DAILY PRN PRN Reason: PAIN Last Admin: 12/20/21 17:14 Dose: 1 patch Lorazepam (Lorazepam 2 Mg/Ml Vial) 1 mg IVP Q2H PRN PRN Reason: Seizure Last Admin: 12/10/21 08:37 Dose: 1 mg Magnesium Oxide (Magnesium Oxide 400 Mg Tablet) 400 mg PO BIDWM [facility] Last Admin: 12/25/21 07:59 Dose: 400 mg Metoprolol Tartrate (Metoprolol 5 Mg/5 Ml Vial) 5 mg IVP Q6H PRN PRN Reason: Tachycardia Multivitamins (Multivitamin Tablet) 1 tab PO DAILYWM [facility] Last Admin: 12/25/21 07:59 Dose: 1 tab Ondansetron HCl (Ondansetron 4 Mg/2 Ml Vial) 4 mg IVP Q6HR PRN PRN Reason: Nausea / Vomiting Pantoprazole Sodium (Pantoprazole 40 Mg Tablet) 40 mg PO BIDAC [facility] Last Admin: 12/25/21 05:51 Dose: 40 mg Polyethylene Glycol (Polyethylene Glycol 3350 17 Gm Packet) 17 gm PO DAILY [facility] Last Admin: 12/25/21 07:58 Dose: 17 gm Senna (Senna 8.6 Mg Tablet) 8.6 mg PO DAILY PRN PRN Reason: Constipation Last Admin: 12/18/21 09:00 Dose: 8.6 mg Sodium Chloride (Sodium Chloride Flush 0.9% 10 Ml Syringe) 10 ml IVP PRN PRN PRN Reason: NEEDED PER PROVIDER ORDERS Last Admin: 12/15/21 13:49 Dose: 10 ml Sodium Chloride (Sodium Chloride Flush 0.9% 10 Ml Syringe) 10 ml IVP 0100, 0900,1700 [facility] Last Admin: 12/25/21 08:06 Dose: 10 ml Tamsulosin HCl (Tamsulosin 0.4 Mg Capsule) 0.4 mg PO DAILY PEREZ Last Admin: 12/25/21 08:01 Dose: 0.4 mg Omeprazole 20 mg PO BID 10/02/13 Atorvastatin Calcium 40 mg PO QPM 01/24/16 Carbidopa/Levodopa [Carbidopa-Levodopa 25-250 Tab] 2 each PO QID 01/05/20 Rivaroxaban [Xarelto] 15 mg PO QDDINNER 07/23/20 Entacapone [Comtan] 200 mg PO BID 04/02/21 Multivit-Min/Folic/Vit K/Lycop [One Daily Men's 50 Plus D3 Tab] 1 each PO DAILY 04/02/21 calcitrioL [Rocaltrol] 0.5 mcg PO DAILY 04/02/21 Insulin Glargine [Lantus Solostar] 8 unit SQ HS 04/23/21 Senna [Senokot] 8.6 mg PO DAILY PRN 04/23/21 Albuterol Sulfate [Proair Hfa Inhaler] 2 puffs INH Q4HR PRN 11/18/21 Fluticasone [Flonase] 2 spray TAWANDA DAILY 11/18/21 diltiaZEM CD [Cardizem Cd] 180 mg PO DAILY 12/09/21 Objective - Vital Signs/Intake & Output Reviewed Vital Signs: Yes Vital Signs: Vital Signs x48h Temp Pulse Resp BP Pulse Ox 12/25/21 11:19 36.4 C L 82 18 111/60 99 12/25/21 07:35 36.5 C 77 18 143/70 H 100 Intake & Output: Intake & Output 12/22/21 12/23/21 12/24/21 12/25/21 23:59 23:59 23:59 23:59 Intake Total 8343 908 3366 1060 Output Total 1650 1400 1050 1300 Balance -560 -480 400 -240 - Objective General Appearance: positive: No acute distress, Alert, Other (deaf alert white male, needs me to write on paper what I say. Still no batteries for his hearing aid) Eyes Bilateral: positive: PERRL ENT: positive: Pharynx nml Neck: positive: No JVD Respiratory: positive: No respiratory distress. negative: Wheezes, Rales, Rhonchi Cardiovascular: positive: Regular rate & rhythm, Systolic murmur. negative: Gallop/S4, Friction rub Abdomen: positive: Non-tender, No organomegaly, Nml bowel sounds Skin: positive: Warm, Dry Extremities: positive: Full ROM, No pedal edema Neurologic/Psychiatric: positive: Oriented x3 (but forgetful), Motor nml (MinAx1 bed mob; MinAx1 transfers with FWW; Mod A gait x 30' with FWW). negative: CN's nml (2-12) (profoundly deaf) - Lab Results Fish Bones: 12/25/21 06:35 12/25/21 05:06 Other Labs: Lab Results x24hrs 12/25/21 12/25/21 12/25/21 Range/Units 11:16 07:30 06:35 WBC 6.6 (4.8-10.8) x10^3/uL RBC 3.60 L (4.70-6.10) 10^6/uL Hgb 10.6 L (14.0-18.0) g/dL Hct 34.2 L (42.0-52.0) % MCV 95.0 H (80.0-94.0) fL MCH 29.4 (27.0-31.0) pg MCHC 31.0 L (32.0-36.0) g/dL RDW 14.9 (12.0-15.0) % Plt Count 177 (130-450) 10^3/uL MPV 12.4 H (7.4-11.4) fL Neut # (Auto) 4.1 (1.5-6.6) 10^3/uL Lymph # (Auto) 1.6 (1.5-3.5) 10^3/uL [place] # (Auto) 0.7 (0.0-1.0) 10^3/uL Eos # (Auto) 0.1 (0.0-0.7) 10^3/uL Baso # (Auto) 0.1 (0.0-0.1) 10^3/uL Absolute Nucleated RBC 0.00 x10^3/uL Nucleated RBC % 0.0 /100WBC Sodium (135-145) mmol/L Potassium (3.5-5.0) mmol/L Chloride (101-111) mmol/L Carbon Dioxide (21-32) mmol/L Anion Gap (6-13) BUN (6-20) mg/dL Creatinine (0.6-1.2) mg/dL Estimated GFR (MDRD) (>89) Glucose (70-100) mg/dL POC Whole Bld Glucose 119 H 182 H (70 - 100) mg/dL Calcium (8.5-10.3) mg/dL Levetiracetam (10.0-40.0) ug/mL 12/25/21 12/24/21 12/24/21 Range/Units 05:06 20:48 16:33 WBC (4.8-10.8) x10^3/uL RBC (4.70-6.10) 10^6/uL Hgb (14.0-18.0) g/dL Hct (42.0-52.0) % MCV (80.0-94.0) fL MCH (27.0-31.0) pg MCHC (32.0-36.0) g/dL RDW (12.0-15.0) % Plt Count (130-450) 10^3/uL MPV (7.4-11.4) fL Neut # (Auto) (1.5-6.6) 10^3/uL Lymph # (Auto) (1.5-3.5) 10^3/uL [place] # (Auto) (0.0-1.0) 10^3/uL Eos # (Auto) (0.0-0.7) 10^3/uL Baso # (Auto) (0.0-0.1) 10^3/uL Absolute Nucleated RBC x10^3/uL Nucleated RBC % /100WBC Sodium 135 (135-145) mmol/L Potassium 4.4 (3.5-5.0) mmol/L Chloride 100 L (101-111) mmol/L Carbon Dioxide 23 (21-32) mmol/L Anion Gap 12.0 (6-13) BUN 66 H (6-20) mg/dL Creatinine 4.2 H (0.6-1.2) mg/dL Estimated GFR (MDRD) 14 L (>89) Glucose 156 H (70-100) mg/dL POC Whole Bld Glucose 178 H 142 H (70 - 100) mg/dL Calcium 9.2 (8.5-10.3) mg/dL Levetiracetam (10.0-40.0) ug/mL 12/20/21 Range/Units 12:00 WBC (4.8-10.8) x10^3/uL RBC (4.70-6.10) 10^6/uL Hgb (14.0-18.0) g/dL Hct (42.0-52.0) % MCV (80.0-94.0) fL MCH (27.0-31.0) pg MCHC (32.0-36.0) g/dL RDW (12.0-15.0) % Plt Count (130-450) 10^3/uL MPV (7.4-11.4) fL Neut # (Auto) (1.5-6.6) 10^3/uL Lymph # (Auto) (1.5-3.5) 10^3/uL [place] # (Auto) (0.0-1.0) 10^3/uL Eos # (Auto) (0.0-0.7) 10^3/uL Baso # (Auto) (0.0-0.1) 10^3/uL Absolute Nucleated RBC x10^3/uL Nucleated RBC % /100WBC Sodium (135-145) mmol/L Potassium (3.5-5.0) mmol/L Chloride (101-111) mmol/L Carbon Dioxide (21-32) mmol/L Anion Gap (6-13) BUN (6-20) mg/dL Creatinine (0.6-1.2) mg/dL Estimated GFR (MDRD) (>89) Glucose (70-100) mg/dL POC Whole Bld Glucose (70 - 100) mg/dL Calcium (8.5-10.3) mg/dL Levetiracetam 20.5 (10.0-40.0) ug/mL Assessment/Plan - Problem List (1) Seizure Impression: He had several witnessed seizures on admission, and in spite of Keppra had another seizure. Repeat CT was done and there were no acute findings. Depakote was added to his Keppra. Since that time the patient has not had any seizures. 2. Frequent falls. He has a history of frequent falls at home and in the past. He has been hospitalized elsewhere for seizures and needed SNF and PT for rehab. Before this admission, he had a ground-level fall before his seizures were witnessed. He continues to need rehab because of parkinsonian gait, bad balance, intermittent confusion, deconditioning, poor vision, and deafness. He has been working with physical therapy and physical therapy recommends discharge to SNF for rehab. From there he will have long-term placement. We have already sent out a DMV form for him to no longer allow drive and he is aware of that. 3. Confusion. This comes and goes. But he has been stable for the last few days. During this hospitalization we attributed to some of that with the new medications including the Depakote, Ativan, and Keppra. 4. Chronic kidney disease That is stable. He has an AV fistula in place for when he needs dialysis. Will start Metformin while here (see #6). His BMP is done intermittently. 5. Parkinson's disease. He is on his home meds. He has a shuffling gait, walks slouched over, toe walks. He is working with physical therapy and slowly, slowly improving. Plan is for discharge to SNF then [facility], no longer to live alone at home. 6. Diabetes mellitus. A1c is 6.4%. At home he was supposedly taking Lantus 8U qpm. Here Lantus 5 units was causing hypoglycemia so that was discontinued. He is only on sliding scale. Overall he has been getting 1 unit to 2 units before meals once or twice a day. We though about starting metformin but in view of creat 3.8-4, will hold off on that 7. Chronic atrial fibrillation. Rate is controlled and he is on anticoagulation. 8. Profound deafness. We will try and find batteries for him. Otherwise, all communication to him is with writing, but he speaks his responses. 9. Hypertension BP is controlled on his home medications. 10. Chronic low back pain. He was getting Tylenol with codeine but that worsened his confusion so now he is on topical Lidocaine patch. Pain is controlled. 11. GERD. He is satble on Protonix.
[2021-12-25] MEDS: ATORVASTATIN 40 MG TABLET PO SCH (20:47)
[2021-12-26] MEDS: CARBIDOPA/LEVODOPA 25 MG/250 MG TABLET PO SCH ×4 (01:39→20:43)
[2021-12-26] MEDS: SODIUM CHLORIDE FLUSH 0.9% 10 ML SYRINGE IVP SCH ×3 (03:34→16:32)
[2021-12-26] MEDS: ACETAMINOPHEN 325 MG TABLET PO PRN (04:25)
[2021-12-26] MEDS: PANTOPRAZOLE 40 MG TABLET PO SCH ×2 (04:25→16:32)
[2021-12-26] MEDS: MAGNESIUM OXIDE 400 MG TABLET PO SCH ×2 (07:41→17:08)
[2021-12-26] MEDS: INSULIN ASPART 300 UNIT/3 ML PEN SUBQ SCH ×4 (07:43→20:48)
[2021-12-26] MEDS: MULTIVITAMIN TABLET PO SCH (07:45)
[2021-12-26] MEDS: levETIRAcetam 250 MG TABLET PO SCH (08:34)
[2021-12-26] MEDS: polyethylene glycoL 3350 17 GM PACKET PO SCH (08:34)
[2021-12-26] MEDS: APIXABAN 2.5 MG TABLET PO SCH ×2 (08:35→20:43)
[2021-12-26] MEDS: DIVALPROEX ER 250 MG TABLET PO SCH ×2 (08:35→20:43)
[2021-12-26] MEDS: calcitrioL 0.25 MCG CAPSULE PO SCH (08:35)
[2021-12-26] MEDS: diltiaZEM CD 180 MG CAPSULE PO SCH (08:35)
[2021-12-26] MEDS: FLUTICASONE NASAL SPRAY NAS SCH (08:35)
[2021-12-26] MEDS: TAMSULOSIN 0.4 MG CAPSULE PO SCH (08:35)
[2021-12-26] MEDS: ENTACAPONE 200 MG TABLET PO SCH ×2 (09:03→20:44)
[2021-12-26] MEDS: ATORVASTATIN 40 MG TABLET PO SCH (20:43)
[2021-12-27] MEDS: CARBIDOPA/LEVODOPA 25 MG/250 MG TABLET PO SCH ×4 (02:06→20:12)
[2021-12-27] MEDS: SODIUM CHLORIDE FLUSH 0.9% 10 ML SYRINGE IVP SCH ×4 (02:06→23:13)
[2021-12-27] MEDS: PANTOPRAZOLE 40 MG TABLET PO SCH ×2 (04:57→17:00)
[2021-12-27] MEDS: ACETAMINOPHEN 325 MG TABLET PO PRN (04:57)
[2021-12-27] MEDS: MULTIVITAMIN TABLET PO SCH (07:35)
[2021-12-27] MEDS: INSULIN ASPART 300 UNIT/3 ML PEN SUBQ SCH ×4 (07:36→21:00)
[2021-12-27] MEDS: MAGNESIUM OXIDE 400 MG TABLET PO SCH ×2 (07:36→17:00)
--- NOTE | 2021-12-27 08:03 | PROVIDER PROGRESS NOTE ---
Assessment/Plan - Problem List (1) Seizure Assessment/Plan: He had several witnessed seizures on admission, and in spite of Keppra had another seizure. Repeat CT was done and there were no acute findings. Depakote was added to his Keppra. Since that time the patient has not had any seizures. 2. Frequent falls. He has a history of frequent falls at home and in the past. He has been hospitalized elsewhere for seizures and needed SNF and PT for rehab. Before this admission, he had a ground-level fall before his seizures were witnessed. He continues to need rehab because of parkinsonian gait, bad balance, intermittent confusion, deconditioning, poor vision, and deafness. He has been working with physical therapy and physical therapy recommends discharge to SNF for rehab. From there he will have long-term placement. We have already sent out a DMV form for him to no longer allow drive and he is aware of that. 3. Confusion. This comes and goes. But he has been stable for the last few days. During this hospitalization we attributed to some of that with the new medications including the Depakote, Ativan, and Keppra. 4. Chronic kidney disease That is stable. He has an AV fistula in place for when he needs dialysis. Will start Metformin while here (see #6). His BMP is done intermittently. 5. Parkinson's disease. He is on his home meds. He has a shuffling gait, walks slouched over, toe walks. He is working with physical therapy and slowly, slowly improving. Plan is for discharge to SNF then LTAC, no longer to live alone at home. 6. Diabetes mellitus. A1c is 6.4%. At home he was supposedly taking Lantus 8U qpm. Here Lantus 5 units was causing hypoglycemia so that was discontinued. He is only on sliding scale. Overall he has been getting 1 unit to 2 units before meals once or twice a day. We though about starting metformin but in view of creat 3.8-4, will hold off on that 7. Chronic atrial fibrillation. Rate is controlled and he is on anticoagulation. 8. Profound deafness. We will try and find batteries for him. Otherwise, all communication to him is with writing, but he speaks his responses. 9. Hypertension BP is controlled on his home medications. 10. Chronic low back pain. He was getting Tylenol with codeine but that worsened his confusion so now he is on topical Lidocaine patch. Pain is controlled. 11. GERD. He is stable on Protonix. - Current Meds Current Meds: Current Medications Generic Name Dose Route Start Last Admin Trade Name Freq PRN Reason Stop Dose Admin Acetaminophen 650 mg 12/09/21 15:00 12/27/21 04:57 Acetaminophen 325 Mg Tablet PO 650 mg Q4HR PRN Administration Pain 1 to 4, or Fever Acetaminophen/Codeine Phosphate 0.5 tab 12/12/21 14:18 12/23/21 22:08 Acetaminophen/Codeine 300 Mg/30 Mg Tablet PO 0.5 tab QPM PRN Administration Severe Pain Apixaban 2.5 mg 12/12/21 21:00 12/26/21 20:43 Apixaban 2.5 Mg Tablet PO 2.5 mg BID PEREZ Administration Atorvastatin Calcium 40 mg 12/10/21 21:00 12/26/21 20:43 Atorvastatin 40 Mg Tablet PO 40 mg QPM PEREZ Administration Calcitriol 0.5 mcg 12/11/21 09:00 12/26/21 08:35 Calcitriol 0.25 Mcg Capsule PO 0.5 mcg DAILY PEREZ Administration Carbidopa/Levodopa 2 tab 12/10/21 15:00 12/27/21 07:35 Carbidopa/Levodopa 25 Mg/250 Mg Tablet PO 2 tab 0200,0800,1400,2000 PEREZ Administration Diltiazem HCl 180 mg 12/11/21 09:00 12/26/21 08:35 Diltiazem Cd 180 Mg Capsule PO 180 mg DAILY PEREZ Administration Divalproex Sodium 500 mg 12/13/21 09:00 12/26/21 20:43 Divalproex Er 250 Mg Tablet PO 500 mg BID PEREZ Administration Entacapone 200 mg 12/10/21 21:00 12/26/21 20:44 Entacapone 200 Mg Tablet PO Not Given BID PEREZ Fluticasone Propionate 1 sprays 12/11/21 09:00 12/26/21 08:35 Fluticasone Nasal [place] TAWANDA 1 spr DAILY PEREZ Administration Insulin Aspart 1 - 5 unit 12/09/21 17:00 12/27/21 07:36 Insulin Aspart 300 Unit/3 Ml Pen SUBQ Not Given 0800,1200,1700,2100 [facility] Protocol Levetiracetam 500 mg 12/14/21 09:00 12/26/21 08:34 Levetiracetam 250 Mg Tablet PO 500 mg DAILY PEREZ Administration Lidocaine 1 patch 12/12/21 14:19 12/20/21 17:14 Lidocaine Patch 5% TOP 1 patch DAILY PRN Administration PAIN Lorazepam 1 mg 12/09/21 16:25 12/10/21 08:37 Lorazepam 2 Mg/Ml Vial IVP 1 mg Q2H PRN Administration Seizure Magnesium Oxide 400 mg 12/19/21 17:00 12/27/21 07:36 Magnesium Oxide 400 Mg Tablet PO 400 mg BIDWM PEREZ Administration Multivitamins 1 tab 12/11/21 08:00 12/27/21 07:35 Multivitamin Tablet PO 1 tab DAILYWM PEREZ Administration Pantoprazole Sodium 40 mg 12/10/21 16:00 12/27/21 04:57 Pantoprazole 40 Mg Tablet PO 40 mg BIDAC PEREZ Administration Polyethylene Glycol 17 gm 12/17/21 09:00 12/26/21 08:34 Polyethylene Glycol 3350 17 Gm Packet PO 17 gm DAILY PEREZ Administration Senna 8.6 mg 12/10/21 14:29 12/18/21 09:00 Senna 8.6 Mg Tablet PO 8.6 mg DAILY PRN Administration Constipation Sodium Chloride 10 ml 12/09/21 15:00 12/15/21 13:49 Sodium Chloride Flush 0.9% 10 Ml Syringe IVP 10 ml PRN PRN Administration NEEDED PER PROVIDER ORDERS Sodium Chloride 10 ml 12/09/21 17:00 12/27/21 02:06 Sodium Chloride Flush 0.9% 10 Ml Syringe IVP 10 ml 0100,0900,1700 PEREZ Administration Tamsulosin HCl 0.4 mg 12/11/21 09:00 12/26/21 08:35 Tamsulosin 0.4 Mg Capsule PO 0.4 mg DAILY PEREZ Administration - Lab Result Fish Bone Diagrams: 12/27/21 08:14 12/27/21 08:14 - Additional Planning My Orders: My Active Orders 12/27/21 08:02 BMP - BASIC METABOLIC PANEL [CHEM] Stat CBC - COMP BLD CT W/AUTO DIFF [HEME] Stat Subjective - Subjective Patient Reports: Other (Patient was seated comfortably in bedside chair at time of exam. He is very very hard of hearing. Communication is in writing. He denies any complaints.) Objective Vital Signs: Vital Signs - 24 hr 12/26/21 12/27/21 08:15 07:22 Temperature 36.1 C L 36.4 C L Heart Rate [ 64 76 Brachial] Respiratory 18 Rate Blood Pressure 137/74 H 128/72 [Left Brachial artery] O2 Saturation 100 100 Oxygen O2 Source Room air I&O (Last 24 Hrs): Intake and Output Totals x24h 12/25/21 12/26/21 12/27/21 23:59 23:59 23:59 Intake Total 1630 1110 Output Total 1300 1275 650 Balance 330 -165 -650 General: Alert, Oriented x3, No acute distress HEENT: PERRLA, EOMI Neck: Supple, No JVD Neuro: Alert, Non Focal, Oriented Times 3 Cardiovascular: Regular rate, Normal S1, Normal S2 Respiratory: Chest non-tender, No respiratory distress, Breath sounds nml Abdomen: Normal bowel sounds, Soft, No tenderness, No masses Extremities: No clubbing, No cyanosis, No edema, No tenderness/swelling Skin: No rashes, No breakdown, No significant lesion - Results Results: Laboratory Results WBC 6.6 x10^3/uL (4.8-10.8) 12/25/21 06:35 RBC 3.60 10^6/uL (4.70-6.10) L 12/25/21 06:35 Hgb 10.6 g/dL (14.0-18.0) L 12/25/21 06:35 Hct 34.2 % (42.0-52.0) L 12/25/21 06:35 MCV 95.0 fL (80.0-94.0) H 12/25/21 06:35 MCH 29.4 pg (27.0-31.0) 12/25/21 06:35 MCHC 31.0 g/dL (32.0-36.0) L 12/25/21 06:35 RDW 14.9 % (12.0-15.0) 12/25/21 06:35 Plt Count 177 10^3/uL (130-450) 12/25/21 06:35 MPV 12.4 fL (7.4-11.4) H 12/25/21 06:35 Neut # (Auto) 4.1 10^3/uL (1.5-6.6) 12/25/21 06:35 Lymph # (Auto) 1.6 10^3/uL (1.5-3.5) 12/25/21 06:35 [place] # (Auto) 0.7 10^3/uL (0.0-1.0) 12/25/21 06:35 Eos # (Auto) 0.1 10^3/uL (0.0-0.7) 12/25/21 06:35 Baso # (Auto) 0.1 10^3/uL (0.0-0.1) 12/25/21 06:35 Absolute Nucleated RBC 0.00 x10^3/uL 12/25/21 06:35 Nucleated RBC % 0.0 /100WBC 12/25/21 06:35 APTT 28.1 secs (24.9-33.3) 12/10/21 09:50 Sodium 135 mmol/L (135-145) 12/25/21 05:06 Potassium 4.4 mmol/L (3.5-5.0) 12/25/21 05:06 Chloride 100 mmol/L (101-111) L 12/25/21 05:06 Carbon Dioxide 23 mmol/L (21-32) 12/25/21 05:06 Anion Gap 12.0 (6-13) 12/25/21 05:06 BUN 66 mg/dL (6-20) H 12/25/21 05:06 Creatinine 4.2 mg/dL (0.6-1.2) H 12/25/21 05:06 Estimated GFR (MDRD) 14 (>89) L 12/25/21 05:06 Glucose 156 mg/dL (70-100) H 12/25/21 05:06 POC Whole Bld Glucose 117 mg/dL (70 - 100) H 12/27/21 07:20 Estimat Average Glucose 137 mg/dL (70-100) H 12/10/21 04:35 Hemoglobin A1c % 6.4 % (4.27-6.07) H 12/10/21 04:35 Calcium 9.2 mg/dL (8.5-10.3) 12/25/21 05:06 Phosphorus 4.1 mg/dL (2.5-4.6) 12/16/21 05:54 Magnesium 1.8 mg/dL (1.7-2.8) 12/21/21 17:27 Total Bilirubin 1.8 mg/dL (0.2-1.0) H 12/09/21 12:56 AST 13 IU/L (10-42) 12/09/21 12:56 ALT < 10 IU/L (10-60) L 12/09/21 12:56 Alkaline Phosphatase 60 IU/L (42-121) 12/09/21 12:56 Total Creatine Kinase 51 IU/L (22-269) 12/09/21 12:56 Troponin I High Sens 33.5 ng/L (2.3-19.7) H* 12/09/21 19:01 Total Protein 7.4 g/dL (6.7-8.2) 12/09/21 12:56 Albumin 4.1 g/dL (3.2-5.5) 12/09/21 12:56 Globulin 3.3 g/dL (2.1-4.2) 12/09/21 12:56 Albumin/Globulin Ratio 1.2 (1.0-2.2) 12/09/21 12:56 Lipase 35 U/L (22-51) 12/09/21 12:56 Urine Color YELLOW 12/09/21 13:59 Urine Clarity HAZY (CLEAR) 12/09/21 13:59 Urine pH 5.5 PH (5.0-7.5) 12/09/21 13:59 Ur Specific [place] >=1.030 (1.002-1.030) H 12/09/21 13:59 Urine Protein >=300 mg/dL (NEGATIVE) H 12/09/21 13:59 Urine Glucose (UA) NEGATIVE mg/dL (NEGATIVE) 12/09/21 13:59 Urine Ketones NEGATIVE mg/dL (NEGATIVE) 12/09/21 13:59 Urine Occult Blood MODERATE (NEGATIVE) H 12/09/21 13:59 Urine Nitrite NEGATIVE (NEGATIVE) 12/09/21 13:59 Urine Bilirubin NEGATIVE (NEGATIVE) 12/09/21 13:59 Urine Urobilinogen 0.2 (NORMAL) E.U./dL (NORMAL) 12/09/21 13:59 Ur Leukocyte Esterase NEGATIVE (NEGATIVE) 12/09/21 13:59 Urine RBC 11-25 /HPF (0-5) H 12/09/21 13:59 Urine WBC 6-10 /HPF (0-3) H 12/09/21 13:59 Ur Squamous Epith Cells RARE Squamous (<= Few) 12/09/21 13:59 Urine Bacteria Moderate /HPF (None Seen) H 12/09/21 13:59 Urine Casts 3-5 Granular Casts /LPF 12/09/21 13:59 Ur Microscopic Review INDICATED 12/09/21 13:59 Urine Culture Comments NOT INDICATED 12/09/21 13:59 Nasal Adenovirus (PCR) NOT DETECTED 12/09/21 13:59 Nasal B. parapertussis DNA (PCR) NOT DETECTED 12/09/21 13:59 Nasal Coronavir 229E PCR NOT DETECTED 12/09/21 13:59 Nasal Coronavir HKU1 PCR NOT DETECTED 12/09/21 13:59 Nasal Coronavir NL63 PCR NOT DETECTED 12/09/21 13:59 Nasal Coronavir OC43 PCR NOT DETECTED 12/09/21 13:59 Nasal Enterovir/Rhinovir PCR NOT DETECTED 12/09/21 13:59 Nasal Influenza B PCR NOT DETECTED 12/09/21 13:59 Nasal Influenza A PCR NOT DETECTED 12/09/21 13:59 Nasal Parainfluen 1 PCR NOT DETECTED 12/09/21 13:59 Nasal Parainfluen 2 PCR NOT DETECTED 12/09/21 13:59 Nasal Parainfluen 3 PCR NOT DETECTED 12/09/21 13:59 Nasal Parainfluen 4 PCR NOT DETECTED 12/09/21 13:59 Nasal RSV (PCR) NOT DETECTED 12/09/21 13:59 Nasal B.pertussis DNA PCR NOT DETECTED 12/09/21 13:59 Nasal C.pneumoniae (PCR) NOT DETECTED 12/09/21 13:59 [place] Human Metapneumo PCR NOT DETECTED 12/09/21 13:59 Nasal M.pneumoniae (PCR) NOT DETECTED 12/09/21 13:59 Nasal SARS-CoV-2 (PCR) NOT DETECTED 12/09/21 13:59 Last Dose Date Not Reportable 12/20/21 12:00 Last Dose Time Not Reportable 12/20/21 12:00 Urine Opiates Screen NEGATIVE (NEGATIVE) 12/09/21 13:59 Ur Oxycodone Screen NEGATIVE (NEGATIVE) 12/09/21 13:59 Urine Methadone Screen NEGATIVE (NEGATIVE) 12/09/21 13:59 Ur Propoxyphene Screen NEGATIVE (NEGATIVE) 12/09/21 13:59 Ur Barbiturates Screen NEGATIVE (NEGATIVE) 12/09/21 13:59 Valproic Acid 31.0 ug/mL 12/20/21 12:00 Ur Tricyclics Screen NEGATIVE (NEGATIVE) 12/09/21 13:59 Levetiracetam 20.5 ug/mL (10.0-40.0) 12/20/21 12:00 Ur Phencyclidine Scrn NEGATIVE (NEGATIVE) 12/09/21 13:59 Ur Amphetamine Screen NEGATIVE (NEGATIVE) 12/09/21 13:59 U Methamphetamines Scrn NEGATIVE (NEGATIVE) 12/09/21 13:59 U Benzodiazepines Scrn NEGATIVE (NEGATIVE) 12/09/21 13:59 Urine Cocaine Screen NEGATIVE (NEGATIVE) 12/09/21 13:59 U Cannabinoids Screen NEGATIVE (NEGATIVE) 12/09/21 13:59 - Procedures Procedures: Procedures [facility]HETERIZATION [facility] (04/17/14) ABX Reporting Has patient been on IV antibiotics over the past 48 hours?: No
[2021-12-27 08:19] LABS: BASOPHILS # (AUTO) 0.1 10^3/uL (0.0-0.1); EOSINOPHILS # (AUTO) 0.1 10^3/uL (0.0-0.7); EOSINOPHILS % (AUTO) 1.5 %; HCT - HEMATOCRIT 34.4 % (42.0-52.0); HGB - HEMOGLOBIN 10.9 g/dL (14.0-18.0); LYMPHOCYTES # (AUTO) 1.7 10^3/uL (1.5-3.5); LYMPHOCYTES % (AUTO) 23.7 %; MEAN CORPUSCULAR HEMOGLOBIN 30.1 pg (27.0-31.0); MEAN CORPUSCULAR HGB CONC 31.7 g/dL (32.0-36.0); MEAN PLATELET VOLUME 12.2 fL (7.4-11.4); MONOCYTES # (AUTO) 0.8 10^3/uL (0.0-1.0); MONOCYTES % (AUTO) 10.5 %; NEUTROPHILS # (AUTO) 4.5 10^3/uL (1.5-6.6); PLT - PLATELET COUNT 179 10^3/uL (130-450); RED BLOOD COUNT 3.62 10^6/uL (4.70-6.10); RED CELL DISTRIBUTION WIDTH 15.2 % (12.0-15.0); WHITE BLOOD COUNT 7.1 x10^3/uL (4.8-10.8)
[2021-12-27 08:32] LABS: CALCIUM 9.4 mg/dL (8.5-10.3); CREATININE 4.3 mg/dL (0.6-1.2); POTASSIUM 4.6 mmol/L (3.5-5.0)
[2021-12-27] MEDS: diltiaZEM CD 180 MG CAPSULE PO SCH (08:36)
[2021-12-27] MEDS: levETIRAcetam 250 MG TABLET PO SCH (08:36)
[2021-12-27] MEDS: calcitrioL 0.25 MCG CAPSULE PO SCH (08:36)
[2021-12-27] MEDS: DIVALPROEX ER 250 MG TABLET PO SCH ×2 (08:37→20:12)
[2021-12-27] MEDS: FLUTICASONE NASAL SPRAY NAS SCH (08:37)
[2021-12-27] MEDS: ENTACAPONE 200 MG TABLET PO SCH ×2 (08:37→20:13)
[2021-12-27] MEDS: TAMSULOSIN 0.4 MG CAPSULE PO SCH (08:37)
[2021-12-27] MEDS: polyethylene glycoL 3350 17 GM PACKET PO SCH (08:42)
[2021-12-27] MEDS: APIXABAN 2.5 MG TABLET PO SCH ×2 (08:47→20:12)
[2021-12-27] MEDS: ACETAMINOPHEN/CODEINE 300 MG/30 MG TABLET PO PRN (18:10)
[2021-12-27] MEDS: ATORVASTATIN 40 MG TABLET PO SCH (20:12)
[2021-12-28] MEDS: CARBIDOPA/LEVODOPA 25 MG/250 MG TABLET PO SCH ×4 (01:25→21:15)
[2021-12-28] MEDS: ACETAMINOPHEN 325 MG TABLET PO PRN (01:30)
[2021-12-28] MEDS: PANTOPRAZOLE 40 MG TABLET PO SCH ×2 (05:41→17:13)
--- NOTE | 2021-12-28 07:48 | PROVIDER PROGRESS NOTE ---
Assessment/Plan - Problem List (1) Seizure Assessment/Plan: He had several witnessed seizures on admission, and in spite of Keppra had another seizure. Repeat CT was done and there were no acute findings. Depakote was added to his Keppra. Since that time the patient has not had any seizures. 2. Frequent falls. He has a history of frequent falls at home and in the past. He has been hospitalized elsewhere for seizures and needed SNF and PT for rehab. Before this admission, he had a ground-level fall before his seizures were witnessed. He continues to need rehab because of parkinsonian gait, bad balance, intermittent confusion, deconditioning, poor vision, and deafness. He has been working with physical therapy and physical therapy recommends discharge to SNF for rehab. From there he will have long-term placement. We have already sent out a DMV form for him to no longer allow drive and he is aware of that. 3. Confusion. This comes and goes. But he has been stable for the last few days. During this hospitalization we attributed to some of that with the new medications including the Depakote, Ativan, and Keppra. 4. Chronic kidney disease That is stable. He has an AV fistula in place for when he needs dialysis. Will start Metformin while here (see #6). His BMP is done intermittently. 5. Parkinson's disease. He is on his home meds. He has a shuffling gait, walks slouched over, toe walks. He is working with physical therapy and slowly, slowly improving. Plan is for discharge to SNF then LTAC, no longer to live alone at home. 6. Diabetes mellitus. A1c is 6.4%. At home he was supposedly taking Lantus 8U qpm. Here Lantus 5 units was causing hypoglycemia so that was discontinued. He is only on sliding scale. Overall he has been getting 1 unit to 2 units before meals once or twice a day. We though about starting metformin but in view of creat 3.8-4, will hold off on that 7. Chronic atrial fibrillation. Rate is controlled and he is on anticoagulation. 8. Profound deafness. We will try and find batteries for him. Otherwise, all communication to him is with writing, but he speaks his responses. 9. Hypertension BP is controlled on his home medications. 10. Chronic low back pain. He was getting Tylenol with codeine but that worsened his confusion so now he is on topical Lidocaine patch. Pain is controlled. 11. GERD. He is stable on Protonix. - Current Meds Current Meds: Current Medications Generic Name Dose Route Start Last Admin Trade Name Freq PRN Reason Stop Dose Admin Acetaminophen 650 mg 12/09/21 15:00 12/28/21 01:30 Acetaminophen 325 Mg Tablet PO 650 mg Q4HR PRN Administration Pain 1 to 4, or Fever Acetaminophen/Codeine Phosphate 0.5 tab 12/12/21 14:18 12/27/21 18:10 Acetaminophen/Codeine 300 Mg/30 Mg Tablet PO 0.5 tab QPM PRN Administration Severe Pain Apixaban 2.5 mg 12/12/21 21:00 12/27/21 20:12 Apixaban 2.5 Mg Tablet PO 2.5 mg BID PEREZ Administration Atorvastatin Calcium 40 mg 12/10/21 21:00 12/27/21 20:12 Atorvastatin 40 Mg Tablet PO 40 mg QPM PEREZ Administration Calcitriol 0.5 mcg 12/11/21 09:00 12/27/21 08:36 Calcitriol 0.25 Mcg Capsule PO 0.5 mcg DAILY PEREZ Administration Carbidopa/Levodopa 2 tab 12/10/21 15:00 12/28/21 01:25 Carbidopa/Levodopa 25 Mg/250 Mg Tablet PO 2 tab 0200,0800,1400,2000 PEREZ Administration Diltiazem HCl 180 mg 12/11/21 09:00 12/27/21 08:36 Diltiazem Cd 180 Mg Capsule PO 180 mg DAILY PEREZ Administration Divalproex Sodium 500 mg 12/13/21 09:00 12/27/21 20:12 Divalproex Er 250 Mg Tablet PO 500 mg BID PEREZ Administration Entacapone 200 mg 12/10/21 21:00 12/27/21 20:13 Entacapone 200 Mg Tablet PO Not Given BID PEREZ Fluticasone Propionate 1 sprays 12/11/21 09:00 12/27/21 08:37 Fluticasone Nasal [place] TAWANDA 1 spr DAILY PEREZ Administration Insulin Aspart 1 - 5 unit 12/09/21 17:00 12/27/21 21:00 Insulin Aspart 300 Unit/3 Ml Pen SUBQ 1 unit 0800,1200,1700,2100 PEREZ Administration Protocol Levetiracetam 500 mg 12/14/21 09:00 12/27/21 08:36 Levetiracetam 250 Mg Tablet PO 500 mg DAILY PEREZ Administration Lidocaine 1 patch 12/12/21 14:19 12/20/21 17:14 Lidocaine Patch 5% TOP 1 patch DAILY PRN Administration PAIN Lorazepam 1 mg 12/09/21 16:25 12/10/21 08:37 Lorazepam 2 Mg/Ml Vial IVP 1 mg Q2H PRN Administration Seizure Magnesium Oxide 400 mg 12/19/21 17:00 12/27/21 17:00 Magnesium Oxide 400 Mg Tablet PO 400 mg BIDWM PEREZ Administration Multivitamins 1 tab 12/11/21 08:00 12/27/21 07:35 Multivitamin Tablet PO 1 tab DAILYWM PEREZ Administration Pantoprazole Sodium 40 mg 12/10/21 16:00 12/28/21 05:41 Pantoprazole 40 Mg Tablet PO 40 mg BIDAC PEREZ Administration Polyethylene Glycol 17 gm 12/17/21 09:00 12/27/21 08:42 Polyethylene Glycol 3350 17 Gm Packet PO 17 gm DAILY PEREZ Administration Senna 8.6 mg 12/10/21 14:29 12/18/21 09:00 Senna 8.6 Mg Tablet PO 8.6 mg DAILY PRN Administration Constipation Sodium Chloride 10 ml 12/09/21 15:00 12/15/21 13:49 Sodium Chloride Flush 0.9% 10 Ml Syringe IVP 10 ml PRN PRN Administration NEEDED PER PROVIDER ORDERS Sodium Chloride 10 ml 12/09/21 17:00 12/27/21 23:13 Sodium Chloride Flush 0.9% 10 Ml Syringe IVP Not Given 0100,0900,1700 [facility] Tamsulosin HCl 0.4 mg 12/11/21 09:00 12/27/21 08:37 Tamsulosin 0.4 Mg Capsule PO 0.4 mg DAILY PEREZ Administration - Lab Result Fish Bone Diagrams: 12/27/21 08:14 12/27/21 08:14 Subjective - Subjective Patient Reports: Other (He was resting comfortably in bed at time of exam. Denied any new complaints.) Objective Vital Signs: Oxygen O2 Source Room air I&O (Last 24 Hrs): Intake and Output Totals x24h 12/26/21 12/27/21 12/28/21 23:59 23:59 23:59 Intake Total 1110 1310 50 Output Total 6729 4150 600 Balance -165 -240 -550 General: Alert, Oriented x3, No acute distress HEENT: PERRLA, EOMI Neck: Supple, No JVD Neuro: Alert, Non Focal, Oriented Times 3 Cardiovascular: Regular rate, Normal S1, Normal S2 Respiratory: Chest non-tender, No respiratory distress, Breath sounds nml Abdomen: Normal bowel sounds, Soft, No tenderness Extremities: No clubbing, No cyanosis, No edema Skin: No rashes, No breakdown, No significant lesion - Results Results: Laboratory Results WBC 7.1 x10^3/uL (4.8-10.8) 12/27/21 08:14 RBC 3.62 10^6/uL (4.70-6.10) L 12/27/21 08:14 Hgb 10.9 g/dL (14.0-18.0) L 12/27/21 08:14 Hct 34.4 % (42.0-52.0) L 12/27/21 08:14 MCV 95.0 fL (80.0-94.0) H 12/27/21 08:14 MCH 30.1 pg (27.0-31.0) 12/27/21 08:14 MCHC 31.7 g/dL (32.0-36.0) L 12/27/21 08:14 RDW 15.2 % (12.0-15.0) H 12/27/21 08:14 Plt Count 179 10^3/uL (130-450) 12/27/21 08:14 MPV 12.2 fL (7.4-11.4) H 12/27/21 08:14 Neut # (Auto) 4.5 10^3/uL (1.5-6.6) 12/27/21 08:14 Lymph # (Auto) 1.7 10^3/uL (1.5-3.5) 12/27/21 08:14 [place] # (Auto) 0.8 10^3/uL (0.0-1.0) 12/27/21 08:14 Eos # (Auto) 0.1 10^3/uL (0.0-0.7) 12/27/21 08:14 Baso # (Auto) 0.1 10^3/uL (0.0-0.1) 12/27/21 08:14 Absolute Nucleated RBC 0.00 x10^3/uL 12/27/21 08:14 Nucleated RBC % 0.0 /100WBC 12/27/21 08:14 APTT 28.1 secs (24.9-33.3) 12/10/21 09:50 Sodium 135 mmol/L (135-145) 12/27/21 08:14 Potassium 4.6 mmol/L (3.5-5.0) 12/27/21 08:14 Chloride 102 mmol/L (101-111) 12/27/21 08:14 Carbon Dioxide 21 mmol/L (21-32) 12/27/21 08:14 Anion Gap 12.0 (6-13) 12/27/21 08:14 BUN 69 mg/dL (6-20) H 12/27/21 08:14 Creatinine 4.3 mg/dL (0.6-1.2) H 12/27/21 08:14 Estimated GFR (MDRD) 14 (>89) L 12/27/21 08:14 Glucose 126 mg/dL (70-100) H 12/27/21 08:14 POC Whole Bld Glucose 166 mg/dL (70 - 100) H 12/27/21 20:32 Estimat Average Glucose 137 mg/dL (70-100) H 12/10/21 04:35 Hemoglobin A1c % 6.4 % (4.27-6.07) H 12/10/21 04:35 Calcium 9.4 mg/dL (8.5-10.3) 12/27/21 08:14 Phosphorus 4.1 mg/dL (2.5-4.6) 12/16/21 05:54 Magnesium 1.8 mg/dL (1.7-2.8) 12/21/21 17:27 Total Bilirubin 1.8 mg/dL (0.2-1.0) H 12/09/21 12:56 AST 13 IU/L (10-42) 12/09/21 12:56 ALT < 10 IU/L (10-60) L 12/09/21 12:56 Alkaline Phosphatase 60 IU/L (42-121) 12/09/21 12:56 Total Creatine Kinase 51 IU/L (22-269) 12/09/21 12:56 Troponin I High Sens 33.5 ng/L (2.3-19.7) H* 12/09/21 19:01 Total Protein 7.4 g/dL (6.7-8.2) 12/09/21 12:56 Albumin 4.1 g/dL (3.2-5.5) 12/09/21 12:56 Globulin 3.3 g/dL (2.1-4.2) 12/09/21 12:56 Albumin/Globulin Ratio 1.2 (1.0-2.2) 12/09/21 12:56 Lipase 35 U/L (22-51) 12/09/21 12:56 Urine Color YELLOW 12/09/21 13:59 Urine Clarity HAZY (CLEAR) 12/09/21 13:59 Urine pH 5.5 PH (5.0-7.5) 12/09/21 13:59 Ur Specific [place] >=1.030 (1.002-1.030) H 12/09/21 13:59 Urine Protein >=300 mg/dL (NEGATIVE) H 12/09/21 13:59 Urine Glucose (UA) NEGATIVE mg/dL (NEGATIVE) 12/09/21 13:59 Urine Ketones NEGATIVE mg/dL (NEGATIVE) 12/09/21 13:59 Urine Occult Blood MODERATE (NEGATIVE) H 12/09/21 13:59 Urine Nitrite NEGATIVE (NEGATIVE) 12/09/21 13:59 Urine Bilirubin NEGATIVE (NEGATIVE) 12/09/21 13:59 Urine Urobilinogen 0.2 (NORMAL) E.U./dL (NORMAL) 12/09/21 13:59 Ur Leukocyte Esterase NEGATIVE (NEGATIVE) 12/09/21 13:59 Urine RBC 11-25 /HPF (0-5) H 12/09/21 13:59 Urine WBC 6-10 /HPF (0-3) H 12/09/21 13:59 Ur Squamous Epith Cells RARE Squamous (<= Few) 12/09/21 13:59 Urine Bacteria Moderate /HPF (None Seen) H 12/09/21 13:59 Urine Casts 3-5 Granular Casts /LPF 12/09/21 13:59 Ur Microscopic Review INDICATED 12/09/21 13:59 Urine Culture Comments NOT INDICATED 12/09/21 13:59 Nasal Adenovirus (PCR) NOT DETECTED 12/09/21 13:59 Nasal B. parapertussis DNA (PCR) NOT DETECTED 12/09/21 13:59 Nasal Coronavir 229E PCR NOT DETECTED 12/09/21 13:59 Nasal Coronavir HKU1 PCR NOT DETECTED 12/09/21 13:59 Nasal Coronavir NL63 PCR NOT DETECTED 12/09/21 13:59 Nasal Coronavir OC43 PCR NOT DETECTED 12/09/21 13:59 Nasal Enterovir/Rhinovir PCR NOT DETECTED 12/09/21 13:59 Nasal Influenza B PCR NOT DETECTED 12/09/21 13:59 Nasal Influenza A PCR NOT DETECTED 12/09/21 13:59 Nasal Parainfluen 1 PCR NOT DETECTED 12/09/21 13:59 Nasal Parainfluen 2 PCR NOT DETECTED 12/09/21 13:59 Nasal Parainfluen 3 PCR NOT DETECTED 12/09/21 13:59 Nasal Parainfluen 4 PCR NOT DETECTED 12/09/21 13:59 Nasal RSV (PCR) NOT DETECTED 12/09/21 13:59 Nasal B.pertussis DNA PCR NOT DETECTED 12/09/21 13:59 Nasal C.pneumoniae (PCR) NOT DETECTED 12/09/21 13:59 [place]anda Human Metapneumo PCR NOT DETECTED 12/09/21 13:59 Nasal M.pneumoniae (PCR) NOT DETECTED 12/09/21 13:59 Nasal SARS-CoV-2 (PCR) NOT DETECTED 12/09/21 13:59 Last Dose Date Not Reportable 12/20/21 12:00 Last Dose Time Not Reportable 12/20/21 12:00 Urine Opiates Screen NEGATIVE (NEGATIVE) 12/09/21 13:59 Ur Oxycodone Screen NEGATIVE (NEGATIVE) 12/09/21 13:59 Urine Methadone Screen NEGATIVE (NEGATIVE) 12/09/21 13:59 Ur Propoxyphene Screen NEGATIVE (NEGATIVE) 12/09/21 13:59 Ur Barbiturates Screen NEGATIVE (NEGATIVE) 12/09/21 13:59 Valproic Acid 31.0 ug/mL 12/20/21 12:00 Ur Tricyclics Screen NEGATIVE (NEGATIVE) 12/09/21 13:59 Levetiracetam 20.5 ug/mL (10.0-40.0) 12/20/21 12:00 Ur Phencyclidine Scrn NEGATIVE (NEGATIVE) 12/09/21 13:59 Ur Amphetamine Screen NEGATIVE (NEGATIVE) 12/09/21 13:59 U Methamphetamines Scrn NEGATIVE (NEGATIVE) 12/09/21 13:59 U Benzodiazepines Scrn NEGATIVE (NEGATIVE) 12/09/21 13:59 Urine Cocaine Screen NEGATIVE (NEGATIVE) 12/09/21 13:59 U Cannabinoids Screen NEGATIVE (NEGATIVE) 12/09/21 13:59 - Procedures Procedures: Procedures VENOUS CATHETERIZATION NEC (04/17/14) ABX Reporting Has patient been on IV antibiotics over the past 48 hours?: No
[2021-12-28] MEDS: INSULIN ASPART 300 UNIT/3 ML PEN SUBQ SCH ×4 (08:46→21:18)
[2021-12-28] MEDS: MAGNESIUM OXIDE 400 MG TABLET PO SCH ×2 (08:55→17:13)
[2021-12-28] MEDS: diltiaZEM CD 180 MG CAPSULE PO SCH (08:56)
[2021-12-28] MEDS: MULTIVITAMIN TABLET PO SCH (08:56)
[2021-12-28] MEDS: calcitrioL 0.25 MCG CAPSULE PO SCH (08:56)
[2021-12-28] MEDS: APIXABAN 2.5 MG TABLET PO SCH ×2 (08:56→21:15)
[2021-12-28] MEDS: levETIRAcetam 250 MG TABLET PO SCH (08:57)
[2021-12-28] MEDS: DIVALPROEX ER 250 MG TABLET PO SCH ×2 (08:57→21:15)
[2021-12-28] MEDS: polyethylene glycoL 3350 17 GM PACKET PO SCH (08:58)
[2021-12-28] MEDS: FLUTICASONE NASAL SPRAY NAS SCH (09:01)
[2021-12-28] MEDS: ENTACAPONE 200 MG TABLET PO SCH ×2 (09:02→21:16)
[2021-12-28] MEDS: SODIUM CHLORIDE FLUSH 0.9% 10 ML SYRINGE IVP SCH ×2 (09:03→17:14)
[2021-12-28] MEDS: TAMSULOSIN 0.4 MG CAPSULE PO SCH (09:07)
[2021-12-28] MEDS: ATORVASTATIN 40 MG TABLET PO SCH (21:15)
[2021-12-29] MEDS: SODIUM CHLORIDE FLUSH 0.9% 10 ML SYRINGE IVP SCH ×4 (00:51→23:32)
[2021-12-29] MEDS: CARBIDOPA/LEVODOPA 25 MG/250 MG TABLET PO SCH ×4 (01:00→20:47)
[2021-12-29] MEDS: ACETAMINOPHEN/CODEINE 300 MG/30 MG TABLET PO PRN (05:37)
[2021-12-29] MEDS: LIDOCAINE PATCH 5% TOP PRN (05:37)
[2021-12-29] MEDS: PANTOPRAZOLE 40 MG TABLET PO SCH ×2 (06:08→16:53)
--- NOTE | 2021-12-29 07:34 | PROVIDER PROGRESS NOTE ---
Assessment/Plan - Problem List (1) Seizure Assessment/Plan: He had several witnessed seizures on admission, and in spite of Keppra had another seizure. Repeat CT was done and there were no acute findings. Depakote was added to his Keppra. Since that time the patient has not had any seizures. Awaiting placement. 2. Frequent falls. He has a history of frequent falls at home and in the past. He has been hospitalized elsewhere for seizures and needed SNF and PT for rehab. Before this admission, he had a ground-level fall before his seizures were witnessed. He continues to need rehab because of parkinsonian gait, bad balance, intermittent confusion, deconditioning, poor vision, and deafness. He has been working with physical therapy and physical therapy recommends discharge to SNF for rehab. From there he will have long-term placement. We have already sent out a DMV form for him to no longer allow drive and he is aware of that. 3. Confusion. This comes and goes. But he has been stable for the last few days. During this hospitalization we attributed to some of that with the new medications including the Depakote, Ativan, and Keppra. 4. Chronic kidney disease That is stable. He has an AV fistula in place for when he needs dialysis. Will start Metformin while here (see #6). His BMP is done intermittently. 5. Parkinson's disease. He is on his home meds. He has a shuffling gait, walks slouched over, toe walks. He is working with physical therapy and slowly, slowly improving. Plan is for discharge to SNF then LTAC, no longer to live alone at home. 6. Diabetes mellitus. A1c is 6.4%. At home he was supposedly taking Lantus 8U qpm. Here Lantus 5 units was causing hypoglycemia so that was discontinued. He is only on sliding scale. Overall he has been getting 1 unit to 2 units before meals once or twice a day. We though about starting metformin but in view of creat 3.8-4, will hold off on that 7. Chronic atrial fibrillation. Rate is controlled and he is on anticoagulation. 8. Profound deafness. We will try and find batteries for him. Otherwise, all communication to him is with writing, but he speaks his responses. 9. Hypertension BP is controlled on his home medications. 10. Chronic low back pain. He was getting Tylenol with codeine but that worsened his confusion so now he is on topical Lidocaine patch. Pain is controlled. 11. GERD. He is stable on Protonix. - Current Meds Current Meds: Current Medications Generic Name Dose Route Start Last Admin Trade Name Freq PRN Reason Stop Dose Admin Acetaminophen 650 mg 12/09/21 15:00 12/28/21 01:30 Acetaminophen 325 Mg Tablet PO 650 mg Q4HR PRN Administration Pain 1 to 4, or Fever Acetaminophen/Codeine Phosphate 0.5 tab 12/12/21 14:18 12/29/21 05:37 Acetaminophen/Codeine 300 Mg/30 Mg Tablet PO 0.5 tab QPM PRN Administration Severe Pain Apixaban 2.5 mg 12/12/21 21:00 12/28/21 21:15 Apixaban 2.5 Mg Tablet PO 2.5 mg BID PEREZ Administration Atorvastatin Calcium 40 mg 12/10/21 21:00 12/28/21 21:15 Atorvastatin 40 Mg Tablet PO 40 mg QPM PEREZ Administration Calcitriol 0.5 mcg 12/11/21 09:00 12/28/21 08:56 Calcitriol 0.25 Mcg Capsule PO 0.5 mcg DAILY PEREZ Administration Carbidopa/Levodopa 2 tab 12/10/21 15:00 12/29/21 01:00 Carbidopa/Levodopa 25 Mg/250 Mg Tablet PO 2 tab 0200,0800,1400,2000 PEREZ Administration Diltiazem HCl 180 mg 12/11/21 09:00 12/28/21 08:56 Diltiazem Cd 180 Mg Capsule PO 180 mg DAILY PEREZ Administration Divalproex Sodium 500 mg 12/13/21 09:00 12/28/21 21:15 Divalproex Er 250 Mg Tablet PO 500 mg BID PEREZ Administration Entacapone 200 mg 12/10/21 21:00 12/28/21 21:16 Entacapone 200 Mg Tablet PO Not Given BID PEREZ Fluticasone Propionate 1 sprays 12/11/21 09:00 12/28/21 09:01 Fluticasone Nasal [place] TAWANDA 1 spr DAILY PEREZ Administration Insulin Aspart 1 - 5 unit 12/09/21 17:00 12/28/21 21:18 Insulin Aspart 300 Unit/3 Ml Pen SUBQ 2 unit 0800,1200,1700,2100 PEREZ Administration Protocol Levetiracetam 500 mg 12/14/21 09:00 12/28/21 08:57 Levetiracetam 250 Mg Tablet PO 500 mg DAILY PEREZ Administration Lidocaine 1 patch 12/12/21 14:19 12/29/21 05:37 Lidocaine Patch 5% TOP 1 patch DAILY PRN Administration PAIN Lorazepam 1 mg 12/09/21 16:25 12/10/21 08:37 Lorazepam 2 Mg/Ml Vial IVP 1 mg Q2H PRN Administration Seizure Magnesium Oxide 400 mg 12/19/21 17:00 12/28/21 17:13 Magnesium Oxide 400 Mg Tablet PO 400 mg BIDWM PEREZ Administration Multivitamins 1 tab 12/11/21 08:00 12/28/21 08:56 Multivitamin Tablet PO 1 tab DAILYWM PEREZ Administration Pantoprazole Sodium 40 mg 12/10/21 16:00 12/29/21 06:08 Pantoprazole 40 Mg Tablet PO 40 mg BIDAC PEREZ Administration Polyethylene Glycol 17 gm 12/17/21 09:00 12/28/21 08:58 Polyethylene Glycol 3350 17 Gm Packet PO 17 gm DAILY PEREZ Administration Senna 8.6 mg 12/10/21 14:29 12/18/21 09:00 Senna 8.6 Mg Tablet PO 8.6 mg DAILY PRN Administration Constipation Sodium Chloride 10 ml 12/09/21 15:00 12/15/21 13:49 Sodium Chloride Flush 0.9% 10 Ml Syringe IVP 10 ml PRN PRN Administration NEEDED PER PROVIDER ORDERS Sodium Chloride 10 ml 12/09/21 17:00 12/29/21 00:51 Sodium Chloride Flush 0.9% 10 Ml Syringe IVP 10 ml 0100,0900,1700 PEREZ Administration Tamsulosin HCl 0.4 mg 12/11/21 09:00 12/28/21 09:07 Tamsulosin 0.4 Mg Capsule PO 0.4 mg DAILY PEREZ Administration - Lab Result Fish Bone Diagrams: 12/27/21 08:14 12/27/21 08:14 Subjective - Subjective Patient Reports: Other (He was resting comfortably in bed at time of exam. Denied any new complaints.) Objective Vital Signs: Vital Signs - 24 hr 12/28/21 12/28/21 12/28/21 07:56 15:36 23:22 Temperature 36.4 C L 36.5 C 36.9 C Heart Rate [ 78 67 63 Brachial] Respiratory 16 16 14 Rate Blood Pressure 130/88 H 147/71 H 128/70 [Left Brachial artery] O2 Saturation 100 100 98 Oxygen O2 Source Room air I&O (Last 24 Hrs): Intake and Output Totals x24h 12/27/21 12/28/21 12/29/21 23:59 23:59 23:59 Intake Total 1310 990 400 Output Total 1550 1800 450 Balance -240 -810 -50 Comments/Notes: General: Alert, Oriented x3, No acute distress HEENT: PERRLA, EOMI Neck: Supple, No JVD Neuro: Alert, Non Focal, Oriented Times 3 Cardiovascular: Regular rate, Normal S1, Normal S2 Respiratory: Chest non-tender, No respiratory distress, Breath sounds nml Abdomen: Normal bowel sounds, Soft, No tenderness Extremities: No clubbing, No cyanosis, No edema Skin: No rashes, No breakdown, No significant lesion - Results Results: Laboratory Results WBC 7.1 x10^3/uL (4.8-10.8) 12/27/21 08:14 RBC 3.62 10^6/uL (4.70-6.10) L 12/27/21 08:14 Hgb 10.9 g/dL (14.0-18.0) L 12/27/21 08:14 Hct 34.4 % (42.0-52.0) L 12/27/21 08:14 MCV 95.0 fL (80.0-94.0) H 12/27/21 08:14 MCH 30.1 pg (27.0-31.0) 12/27/21 08:14 MCHC 31.7 g/dL (32.0-36.0) L 12/27/21 08:14 RDW 15.2 % (12.0-15.0) H 12/27/21 08:14 Plt Count 179 10^3/uL (130-450) 12/27/21 08:14 MPV 12.2 fL (7.4-11.4) H 12/27/21 08:14 Neut # (Auto) 4.5 10^3/uL (1.5-6.6) 12/27/21 08:14 Lymph # (Auto) 1.7 10^3/uL (1.5-3.5) 12/27/21 08:14 [place] # (Auto) 0.8 10^3/uL (0.0-1.0) 12/27/21 08:14 Eos # (Auto) 0.1 10^3/uL (0.0-0.7) 12/27/21 08:14 Baso # (Auto) 0.1 10^3/uL (0.0-0.1) 12/27/21 08:14 Absolute Nucleated RBC 0.00 x10^3/uL 12/27/21 08:14 Nucleated RBC % 0.0 /100WBC 12/27/21 08:14 APTT 28.1 secs (24.9-33.3) 12/10/21 09:50 Sodium 135 mmol/L (135-145) 12/27/21 08:14 Potassium 4.6 mmol/L (3.5-5.0) 12/27/21 08:14 Chloride 102 mmol/L (101-111) 12/27/21 08:14 Carbon Dioxide 21 mmol/L (21-32) 12/27/21 08:14 Anion Gap 12.0 (6-13) 12/27/21 08:14 BUN 69 mg/dL (6-20) H 12/27/21 08:14 Creatinine 4.3 mg/dL (0.6-1.2) H 12/27/21 08:14 Estimated GFR (MDRD) 14 (>89) L 12/27/21 08:14 Glucose 126 mg/dL (70-100) H 12/27/21 08:14 POC Whole Bld Glucose 113 mg/dL (70 - 100) H 12/29/21 07:26 Estimat Average Glucose 137 mg/dL (70-100) H 12/10/21 04:35 Hemoglobin A1c % 6.4 % (4.27-6.07) H 12/10/21 04:35 Calcium 9.4 mg/dL (8.5-10.3) 12/27/21 08:14 Phosphorus 4.1 mg/dL (2.5-4.6) 12/16/21 05:54 Magnesium 1.8 mg/dL (1.7-2.8) 12/21/21 17:27 Total Bilirubin 1.8 mg/dL (0.2-1.0) H 12/09/21 12:56 AST 13 IU/L (10-42) 12/09/21 12:56 ALT < 10 IU/L (10-60) L 12/09/21 12:56 Alkaline Phosphatase 60 IU/L (42-121) 12/09/21 12:56 Total Creatine Kinase 51 IU/L (22-269) 12/09/21 12:56 Troponin I High Sens 33.5 ng/L (2.3-19.7) H* 12/09/21 19:01 Total Protein 7.4 g/dL (6.7-8.2) 12/09/21 12:56 Albumin 4.1 g/dL (3.2-5.5) 12/09/21 12:56 Globulin 3.3 g/dL (2.1-4.2) 12/09/21 12:56 Albumin/Globulin Ratio 1.2 (1.0-2.2) 12/09/21 12:56 Lipase 35 U/L (22-51) 12/09/21 12:56 Urine Color YELLOW 12/09/21 13:59 Urine Clarity HAZY (CLEAR) 12/09/21 13:59 Urine pH 5.5 PH (5.0-7.5) 12/09/21 13:59 Ur Specific [place] >=1.030 (1.002-1.030) H 12/09/21 13:59 Urine Protein >=300 mg/dL (NEGATIVE) H 12/09/21 13:59 Urine Glucose (UA) NEGATIVE mg/dL (NEGATIVE) 12/09/21 13:59 Urine Ketones NEGATIVE mg/dL (NEGATIVE) 12/09/21 13:59 Urine Occult Blood MODERATE (NEGATIVE) H 12/09/21 13:59 Urine Nitrite NEGATIVE (NEGATIVE) 12/09/21 13:59 Urine Bilirubin NEGATIVE (NEGATIVE) 12/09/21 13:59 Urine Urobilinogen 0.2 (NORMAL) E.U./dL (NORMAL) 12/09/21 13:59 Ur Leukocyte Esterase NEGATIVE (NEGATIVE) 12/09/21 13:59 Urine RBC 11-25 /HPF (0-5) H 12/09/21 13:59 Urine WBC 6-10 /HPF (0-3) H 12/09/21 13:59 Ur Squamous Epith Cells RARE Squamous (<= Few) 12/09/21 13:59 Urine Bacteria Moderate /HPF (None Seen) H 12/09/21 13:59 Urine Casts 3-5 Granular Casts /LPF 12/09/21 13:59 Ur Microscopic Review INDICATED 12/09/21 13:59 Urine Culture Comments NOT INDICATED 12/09/21 13:59 Nasal Adenovirus (PCR) NOT DETECTED 12/09/21 13:59 Nasal B. parapertussis DNA (PCR) NOT DETECTED 12/09/21 13:59 Nasal Coronavir 229E PCR NOT DETECTED 12/09/21 13:59 Nasal Coronavir HKU1 PCR NOT DETECTED 12/09/21 13:59 Nasal Coronavir NL63 PCR NOT DETECTED 12/09/21 13:59 Nasal Coronavir OC43 PCR NOT DETECTED 12/09/21 13:59 Nasal Enterovir/Rhinovir PCR NOT DETECTED 12/09/21 13:59 Nasal Influenza B PCR NOT DETECTED 12/09/21 13:59 Nasal Influenza A PCR NOT DETECTED 12/09/21 13:59 Nasal Parainfluen 1 PCR NOT DETECTED 12/09/21 13:59 Nasal Parainfluen 2 PCR NOT DETECTED 12/09/21 13:59 Nasal Parainfluen 3 PCR NOT DETECTED 12/09/21 13:59 Nasal Parainfluen 4 PCR NOT DETECTED 12/09/21 13:59 Nasal RSV (PCR) NOT DETECTED 12/09/21 13:59 Nasal B.pertussis DNA PCR NOT DETECTED 12/09/21 13:59 Nasal C.pneumoniae (PCR) NOT DETECTED 12/09/21 13:59 [place] Human Metapneumo PCR NOT DETECTED 12/09/21 13:59 Nasal M.pneumoniae (PCR) NOT DETECTED 12/09/21 13:59 Nasal SARS-CoV-2 (PCR) NOT DETECTED 12/09/21 13:59 Last Dose Date Not Reportable 12/20/21 12:00 Last Dose Time Not Reportable 12/20/21 12:00 Urine Opiates Screen NEGATIVE (NEGATIVE) 12/09/21 13:59 Ur Oxycodone Screen NEGATIVE (NEGATIVE) 12/09/21 13:59 Urine Methadone Screen NEGATIVE (NEGATIVE) 12/09/21 13:59 Ur Propoxyphene Screen NEGATIVE (NEGATIVE) 12/09/21 13:59 Ur Barbiturates Screen NEGATIVE (NEGATIVE) 12/09/21 13:59 Valproic Acid 31.0 ug/mL 12/20/21 12:00 Ur Tricyclics Screen NEGATIVE (NEGATIVE) 12/09/21 13:59 Levetiracetam 20.5 ug/mL (10.0-40.0) 12/20/21 12:00 Ur Phencyclidine Scrn NEGATIVE (NEGATIVE) 12/09/21 13:59 Ur Amphetamine Screen NEGATIVE (NEGATIVE) 12/09/21 13:59 U Methamphetamines Scrn NEGATIVE (NEGATIVE) 12/09/21 13:59 U Benzodiazepines Scrn NEGATIVE (NEGATIVE) 12/09/21 13:59 Urine Cocaine Screen NEGATIVE (NEGATIVE) 12/09/21 13:59 U Cannabinoids Screen NEGATIVE (NEGATIVE) 12/09/21 13:59 - Procedures Procedures: Procedures VENOUS CATHETERIZATION NEC (04/17/14) ABX Reporting Has patient been on IV antibiotics over the past 48 hours?: No
[2021-12-29] MEDS: INSULIN ASPART 300 UNIT/3 ML PEN SUBQ SCH ×4 (07:56→20:47)
[2021-12-29] MEDS: MAGNESIUM OXIDE 400 MG TABLET PO SCH ×2 (07:57→16:53)
[2021-12-29] MEDS: MULTIVITAMIN TABLET PO SCH (07:57)
[2021-12-29] MEDS: APIXABAN 2.5 MG TABLET PO SCH ×2 (08:03→20:47)
[2021-12-29] MEDS: ACETAMINOPHEN 325 MG TABLET PO PRN ×2 (08:03→23:30)
[2021-12-29] MEDS: levETIRAcetam 250 MG TABLET PO SCH (08:03)
[2021-12-29] MEDS: diltiaZEM CD 180 MG CAPSULE PO SCH (08:06)
[2021-12-29] MEDS: calcitrioL 0.25 MCG CAPSULE PO SCH (08:06)
[2021-12-29] MEDS: DIVALPROEX ER 250 MG TABLET PO SCH ×2 (08:06→20:47)
[2021-12-29] MEDS: TAMSULOSIN 0.4 MG CAPSULE PO SCH (08:07)
[2021-12-29] MEDS: FLUTICASONE NASAL SPRAY NAS SCH (08:08)
[2021-12-29] MEDS: ENTACAPONE 200 MG TABLET PO SCH ×2 (08:08→20:48)
[2021-12-29] MEDS: polyethylene glycoL 3350 17 GM PACKET PO SCH (08:08)
[2021-12-29] MEDS: ATORVASTATIN 40 MG TABLET PO SCH (20:47)
[2021-12-30] MEDS: CARBIDOPA/LEVODOPA 25 MG/250 MG TABLET PO SCH ×4 (01:35→20:28)
[2021-12-30] MEDS: PANTOPRAZOLE 40 MG TABLET PO SCH ×2 (05:47→16:04)
--- NOTE | 2021-12-30 07:51 | PROVIDER PROGRESS NOTE ---
Assessment/Plan - Problem List (1) Seizure Assessment/Plan: He had several witnessed seizures on admission, and in spite of Keppra had another seizure. Repeat CT was done and there were no acute findings. Depakote was added to his Keppra. Since that time the patient has not had any seizures. Awaiting placement. 2. Frequent falls. He has a history of frequent falls at home and in the past. He has been hospitalized elsewhere for seizures and needed SNF and PT for rehab. Before this admission, he had a ground-level fall before his seizures were witnessed. He continues to need rehab because of parkinsonian gait, bad balance, intermittent confusion, deconditioning, poor vision, and deafness. He has been working with physical therapy and physical therapy recommends discharge to SNF for rehab. From there he will have long-term placement. We have already sent out a DMV form for him to no longer allow drive and he is aware of that. 3. Confusion. This comes and goes. But he has been stable for the last few days. During this hospitalization we attributed to some of that with the new medications including the Depakote, Ativan, and Keppra. 4. Chronic kidney disease That is stable. He has an AV fistula in place for when he needs dialysis. Will start Metformin while here (see #6). His BMP is done intermittently. 5. Parkinson's disease. He is on his home meds. He has a shuffling gait, walks slouched over, toe walks. He is working with physical therapy and slowly, slowly improving. Plan is for discharge to SNF then LTAC, no longer to live alone at home. 6. Diabetes mellitus. A1c is 6.4%. At home he was supposedly taking Lantus 8U qpm. Here Lantus 5 units was causing hypoglycemia so that was discontinued. He is only on sliding scale. Overall he has been getting 1 unit to 2 units before meals once or twice a day. We though about starting metformin but in view of creat 3.8-4, will hold off on that 7. Chronic atrial fibrillation. Rate is controlled and he is on anticoagulation. 8. Profound deafness. We will try and find batteries for him. Otherwise, all communication to him is with writing, but he speaks his responses. 9. Hypertension BP is controlled on his home medications. 10. Chronic low back pain. He was getting Tylenol with codeine but that worsened his confusion so now he is on topical Lidocaine patch. Pain is controlled. 11. GERD. He is stable on Protonix. - Current Meds Current Meds: Current Medications Generic Name Dose Route Start Last Admin Trade Name Freq PRN Reason Stop Dose Admin Acetaminophen 650 mg 12/09/21 15:00 12/29/21 23:30 Acetaminophen 325 Mg Tablet PO 650 mg Q4HR PRN Administration Pain 1 to 4, or Fever Acetaminophen/Codeine Phosphate 0.5 tab 12/12/21 14:18 12/29/21 05:37 Acetaminophen/Codeine 300 Mg/30 Mg Tablet PO 0.5 tab QPM PRN Administration Severe Pain Apixaban 2.5 mg 12/12/21 21:00 12/29/21 20:47 Apixaban 2.5 Mg Tablet PO 2.5 mg BID PEREZ Administration Atorvastatin Calcium 40 mg 12/10/21 21:00 12/29/21 20:47 Atorvastatin 40 Mg Tablet PO 40 mg QPM PEREZ Administration Calcitriol 0.5 mcg 12/11/21 09:00 12/29/21 08:06 Calcitriol 0.25 Mcg Capsule PO 0.5 mcg DAILY PEREZ Administration Carbidopa/Levodopa 2 tab 12/10/21 15:00 12/30/21 01:35 Carbidopa/Levodopa 25 Mg/250 Mg Tablet PO 2 tab 0200,0800,1400,2000 PEREZ Administration Diltiazem HCl 180 mg 12/11/21 09:00 12/29/21 08:06 Diltiazem Cd 180 Mg Capsule PO 180 mg DAILY PEREZ Administration Divalproex Sodium 500 mg 12/13/21 09:00 12/29/21 20:47 Divalproex Er 250 Mg Tablet PO 500 mg BID PEREZ Administration Entacapone 200 mg 12/10/21 21:00 12/29/21 20:48 Entacapone 200 Mg Tablet PO Not Given BID PEREZ Fluticasone Propionate 1 sprays 12/11/21 09:00 12/29/21 08:08 Fluticasone Nasal [place] TAWANDA 1 spr DAILY PEREZ Administration Insulin Aspart 1 - 5 unit 12/09/21 17:00 12/29/21 20:47 Insulin Aspart 300 Unit/3 Ml Pen SUBQ 2 unit 0800,1200,1700,2100 PEREZ Administration Protocol Levetiracetam 500 mg 12/14/21 09:00 12/29/21 08:03 Levetiracetam 250 Mg Tablet PO 500 mg DAILY PEREZ Administration Lidocaine 1 patch 12/12/21 14:19 12/29/21 05:37 Lidocaine Patch 5% TOP 1 patch DAILY PRN Administration PAIN Lorazepam 1 mg 12/09/21 16:25 12/10/21 08:37 Lorazepam 2 Mg/Ml Vial IVP 1 mg Q2H PRN Administration Seizure Magnesium Oxide 400 mg 12/19/21 17:00 12/29/21 16:53 Magnesium Oxide 400 Mg Tablet PO 400 mg BIDWM PEREZ Administration Multivitamins 1 tab 12/11/21 08:00 12/29/21 07:57 Multivitamin Tablet PO 1 tab DAILYWM PEREZ Administration Pantoprazole Sodium 40 mg 12/10/21 16:00 12/30/21 05:47 Pantoprazole 40 Mg Tablet PO 40 mg BIDAC PEREZ Administration Polyethylene Glycol 17 gm 12/17/21 09:00 12/29/21 08:08 Polyethylene Glycol 3350 17 Gm Packet PO 17 gm DAILY PEREZ Administration Senna 8.6 mg 12/10/21 14:29 12/18/21 09:00 Senna 8.6 Mg Tablet PO 8.6 mg DAILY PRN Administration Constipation Sodium Chloride 10 ml 12/09/21 15:00 12/15/21 13:49 Sodium Chloride Flush 0.9% 10 Ml Syringe IVP 10 ml PRN PRN Administration NEEDED PER PROVIDER ORDERS Sodium Chloride 10 ml 12/09/21 17:00 12/29/21 23:32 Sodium Chloride Flush 0.9% 10 Ml Syringe IVP Not Given 0100,0900,1700 PEREZ Tamsulosin HCl 0.4 mg 12/11/21 09:00 12/29/21 08:07 Tamsulosin 0.4 Mg Capsule PO 0.4 mg DAILY PEREZ Administration - Lab Result Fish Bone Diagrams: 12/27/21 08:14 12/27/21 08:14 Subjective - Subjective Patient Reports: Other (He was resting comfortably in bed at time of exam. Denied any new complaints.) Objective Vital Signs: Vital Signs - 24 hr 12/29/21 12/29/21 12/30/21 08:00 09:00 07:31 Temperature 36.3 C L 36.2 C L Heart Rate [ 86 73 85 Brachial] Respiratory 14 16 Rate Blood Pressure 155/85 H 130/72 103/80 [Left Brachial artery] O2 Saturation 98 100 Oxygen O2 Source Room air I&O (Last 24 Hrs): Intake and Output Totals x24h 12/28/21 12/29/21 12/30/21 23:59 23:59 23:59 Intake Total 990 1340 100 Output Total 1800 1350 325 Wbjzhzl -758 -12 -196 Comments/Notes: General: Alert, Oriented x3, No acute distress HEENT: PERRLA, EOMI Neck: Supple, No JVD Neuro: Alert, Non Focal, Oriented Times 3 Cardiovascular: Regular rate, Normal S1, Normal S2 Respiratory: Chest non-tender, No respiratory distress, Breath sounds nml Abdomen: Normal bowel sounds, Soft, No tenderness Extremities: No clubbing, No cyanosis, No edema Skin: No rashes, No breakdown, No significant lesion - Results Results: Laboratory Results WBC 7.1 x10^3/uL (4.8-10.8) 12/27/21 08:14 RBC 3.62 10^6/uL (4.70-6.10) L 12/27/21 08:14 Hgb 10.9 g/dL (14.0-18.0) L 12/27/21 08:14 Hct 34.4 % (42.0-52.0) L 12/27/21 08:14 MCV 95.0 fL (80.0-94.0) H 12/27/21 08:14 MCH 30.1 pg (27.0-31.0) 12/27/21 08:14 MCHC 31.7 g/dL (32.0-36.0) L 12/27/21 08:14 RDW 15.2 % (12.0-15.0) H 12/27/21 08:14 Plt Count 179 10^3/uL (130-450) 12/27/21 08:14 MPV 12.2 fL (7.4-11.4) H 12/27/21 08:14 Neut # (Auto) 4.5 10^3/uL (1.5-6.6) 12/27/21 08:14 Lymph # (Auto) 1.7 10^3/uL (1.5-3.5) 12/27/21 08:14 [place] # (Auto) 0.8 10^3/uL (0.0-1.0) 12/27/21 08:14 Eos # (Auto) 0.1 10^3/uL (0.0-0.7) 12/27/21 08:14 Baso # (Auto) 0.1 10^3/uL (0.0-0.1) 12/27/21 08:14 Absolute Nucleated RBC 0.00 x10^3/uL 12/27/21 08:14 Nucleated RBC % 0.0 /100WBC 12/27/21 08:14 APTT 28.1 secs (24.9-33.3) 12/10/21 09:50 Sodium 135 mmol/L (135-145) 12/27/21 08:14 Potassium 4.6 mmol/L (3.5-5.0) 12/27/21 08:14 Chloride 102 mmol/L (101-111) 12/27/21 08:14 Carbon Dioxide 21 mmol/L (21-32) 12/27/21 08:14 Anion Gap 12.0 (6-13) 12/27/21 08:14 BUN 69 mg/dL (6-20) H 12/27/21 08:14 Creatinine 4.3 mg/dL (0.6-1.2) H 12/27/21 08:14 Estimated GFR (MDRD) 14 (>89) L 12/27/21 08:14 Glucose 126 mg/dL (70-100) H 12/27/21 08:14 POC Whole Bld Glucose 223 mg/dL (70 - 100) H 12/29/21 20:38 Estimat Average Glucose 137 mg/dL (70-100) H 12/10/21 04:35 Hemoglobin A1c % 6.4 % (4.27-6.07) H 12/10/21 04:35 Calcium 9.4 mg/dL (8.5-10.3) 12/27/21 08:14 Phosphorus 4.1 mg/dL (2.5-4.6) 12/16/21 05:54 Magnesium 1.8 mg/dL (1.7-2.8) 12/21/21 17:27 Total Bilirubin 1.8 mg/dL (0.2-1.0) H 12/09/21 12:56 AST 13 IU/L (10-42) 12/09/21 12:56 ALT < 10 IU/L (10-60) L 12/09/21 12:56 Alkaline Phosphatase 60 IU/L (42-121) 12/09/21 12:56 Total Creatine Kinase 51 IU/L (22-269) 12/09/21 12:56 Troponin I High Sens 33.5 ng/L (2.3-19.7) H* 12/09/21 19:01 Total Protein 7.4 g/dL (6.7-8.2) 12/09/21 12:56 Albumin 4.1 g/dL (3.2-5.5) 12/09/21 12:56 Globulin 3.3 g/dL (2.1-4.2) 12/09/21 12:56 Albumin/Globulin Ratio 1.2 (1.0-2.2) 12/09/21 12:56 Lipase 35 U/L (22-51) 12/09/21 12:56 Urine Color YELLOW 12/09/21 13:59 Urine Clarity HAZY (CLEAR) 12/09/21 13:59 Urine pH 5.5 PH (5.0-7.5) 12/09/21 13:59 Ur Specific [place] >=1.030 (1.002-1.030) H 12/09/21 13:59 Urine Protein >=300 mg/dL (NEGATIVE) H 12/09/21 13:59 Urine Glucose (UA) NEGATIVE mg/dL (NEGATIVE) 12/09/21 13:59 Urine Ketones NEGATIVE mg/dL (NEGATIVE) 12/09/21 13:59 Urine Occult Blood MODERATE (NEGATIVE) H 12/09/21 13:59 Urine Nitrite NEGATIVE (NEGATIVE) 12/09/21 13:59 Urine Bilirubin NEGATIVE (NEGATIVE) 12/09/21 13:59 Urine Urobilinogen 0.2 (NORMAL) E.U./dL (NORMAL) 12/09/21 13:59 Ur Leukocyte Esterase NEGATIVE (NEGATIVE) 12/09/21 13:59 Urine RBC 11-25 /HPF (0-5) H 12/09/21 13:59 Urine WBC 6-10 /HPF (0-3) H 12/09/21 13:59 Ur Squamous Epith Cells RARE Squamous (<= Few) 12/09/21 13:59 Urine Bacteria Moderate /HPF (None Seen) H 12/09/21 13:59 Urine Casts 3-5 Granular Casts /LPF 12/09/21 13:59 Ur Microscopic Review INDICATED 12/09/21 13:59 Urine Culture Comments NOT INDICATED 12/09/21 13:59 Nasal Adenovirus (PCR) NOT DETECTED 12/09/21 13:59 Nasal B. parapertussis DNA (PCR) NOT DETECTED 12/09/21 13:59 Nasal Coronavir 229E PCR NOT DETECTED 12/09/21 13:59 Nasal Coronavir HKU1 PCR NOT DETECTED 12/09/21 13:59 Nasal Coronavir NL63 PCR NOT DETECTED 12/09/21 13:59 Nasal Coronavir OC43 PCR NOT DETECTED 12/09/21 13:59 Nasal Enterovir/Rhinovir PCR NOT DETECTED 12/09/21 13:59 Nasal Influenza B PCR NOT DETECTED 12/09/21 13:59 Nasal Influenza A PCR NOT DETECTED 12/09/21 13:59 Nasal Parainfluen 1 PCR NOT DETECTED 12/09/21 13:59 Nasal Parainfluen 2 PCR NOT DETECTED 12/09/21 13:59 Nasal Parainfluen 3 PCR NOT DETECTED 12/09/21 13:59 Nasal Parainfluen 4 PCR NOT DETECTED 12/09/21 13:59 Nasal RSV (PCR) NOT DETECTED 12/09/21 13:59 Nasal B.pertussis DNA PCR NOT DETECTED 12/09/21 13:59 Nasal C.pneumoniae (PCR) NOT DETECTED 12/09/21 13:59 [place] Human Metapneumo PCR NOT DETECTED 12/09/21 13:59 Nasal M.pneumoniae (PCR) NOT DETECTED 12/09/21 13:59 Nasal SARS-CoV-2 (PCR) NOT DETECTED 12/09/21 13:59 Last Dose Date Not Reportable 12/20/21 12:00 Last Dose Time Not Reportable 12/20/21 12:00 Urine Opiates Screen NEGATIVE (NEGATIVE) 12/09/21 13:59 Ur Oxycodone Screen NEGATIVE (NEGATIVE) 12/09/21 13:59 Urine Methadone Screen NEGATIVE (NEGATIVE) 12/09/21 13:59 Ur Propoxyphene Screen NEGATIVE (NEGATIVE) 12/09/21 13:59 Ur Barbiturates Screen NEGATIVE (NEGATIVE) 12/09/21 13:59 Valproic Acid 31.0 ug/mL 12/20/21 12:00 Ur Tricyclics Screen NEGATIVE (NEGATIVE) 12/09/21 13:59 Levetiracetam 20.5 ug/mL (10.0-40.0) 12/20/21 12:00 Ur Phencyclidine Scrn NEGATIVE (NEGATIVE) 12/09/21 13:59 Ur Amphetamine Screen NEGATIVE (NEGATIVE) 12/09/21 13:59 U Methamphetamines Scrn NEGATIVE (NEGATIVE) 12/09/21 13:59 U Benzodiazepines Scrn NEGATIVE (NEGATIVE) 12/09/21 13:59 Urine Cocaine Screen NEGATIVE (NEGATIVE) 12/09/21 13:59 U Cannabinoids Screen NEGATIVE (NEGATIVE) 12/09/21 13:59 - Procedures Procedures: Procedures VENOUS CATHETERIZATION NEC (04/17/14) ABX Reporting Has patient been on IV antibiotics over the past 48 hours?: No
[2021-12-30] MEDS: INSULIN ASPART 300 UNIT/3 ML PEN SUBQ SCH ×4 (08:57→21:22)
[2021-12-30] MEDS ORDERED: CHOLECALCIFEROL 25 MCG TABLET PO SCH (09:00)
[2021-12-30] MEDS: FLUTICASONE NASAL SPRAY NAS SCH (09:15)
[2021-12-30] MEDS: calcitrioL 0.25 MCG CAPSULE PO SCH (09:15)
[2021-12-30] MEDS: levETIRAcetam 250 MG TABLET PO SCH ×2 (09:15→22:40)
[2021-12-30] MEDS: diltiaZEM CD 180 MG CAPSULE PO SCH (09:15)
[2021-12-30] MEDS: polyethylene glycoL 3350 17 GM PACKET PO SCH (09:15)
[2021-12-30] MEDS: TAMSULOSIN 0.4 MG CAPSULE PO SCH (09:15)
[2021-12-30] MEDS: MAGNESIUM OXIDE 400 MG TABLET PO SCH ×2 (09:15→16:54)
[2021-12-30] MEDS: APIXABAN 2.5 MG TABLET PO SCH ×2 (09:15→21:21)
[2021-12-30] MEDS: DIVALPROEX ER 250 MG TABLET PO SCH ×2 (09:15→21:21)
[2021-12-30] MEDS: MULTIVITAMIN TABLET PO SCH (09:15)
[2021-12-30] MEDS: SODIUM CHLORIDE FLUSH 0.9% 10 ML SYRINGE IVP SCH ×2 (11:55→16:52)
[2021-12-30] MEDS: ENTACAPONE 200 MG TABLET PO SCH ×2 (13:05→21:22)
[2021-12-30] MEDS: ATORVASTATIN 40 MG TABLET PO SCH (21:21)
--- NOTE | 2021-12-30 22:30 | PROVIDER PROGRESS NOTE ---
Entry Rep Note - Entry Rep Note Entry Rep Note: His RN aldair reported that patient complains of seeing flashes of light almost every night for about a week, at about 9 or 10 PM, including today. Nursing staff has not told the Entry Rep about this over the last 2 nights however (which was me). 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 Plan: We will increase his Keppra from 500 mg daily to 500 mg in the a.m. and 250 mg in p.m. starting aldair. Watch for increased somnolence on this higher Keppra dose
[2021-12-31] MEDS: SODIUM CHLORIDE FLUSH 0.9% 10 ML SYRINGE IVP SCH ×2 (00:44→08:47)
[2021-12-31] MEDS: CARBIDOPA/LEVODOPA 25 MG/250 MG TABLET PO SCH ×4 (01:38→20:19)
[2021-12-31] MEDS: PANTOPRAZOLE 40 MG TABLET PO SCH ×2 (05:35→16:11)
--- NOTE | 2021-12-31 07:29 | PROVIDER PROGRESS NOTE ---
Assessment/Plan - Problem List (1) Seizure Assessment/Plan: 12/31/21 Patient complained of experiencing flashes of light in his vision last night. He explained that this is usually associated with stressful times for him. For concern that these are possible RLS prior to seizure his Keppra dosage was adj usted to Keppra 500 mg in the morning and 250 mg in the evening. Will monitor for increased somnolence on this higher dose. 12/30/21 He had several witnessed seizures on admission, and in spite of Keppra had another seizure. Repeat CT was done and there were no acute findings. Depakote was added to his Keppra. Since that time the patient has not had any seizures. Awaiting placement. 2. Frequent falls. He has a history of frequent falls at home and in the past. He has been hospitalized elsewhere for seizures and needed SNF and PT for rehab. Before this admission, he had a ground-level fall before his seizures were witnessed. He continues to need rehab because of parkinsonian gait, bad balance, intermittent confusion, deconditioning, poor vision, and deafness. He has been working with physical therapy and physical therapy recommends discharge to SNF for rehab. From there he will have long-term placement. We have already sent out a DMV form for him to no longer allow drive and he is aware of that. 3. Confusion. This comes and goes. But he has been stable for the last few days. During this hospitalization we attributed to some of that with the new medications including the Depakote, Ativan, and Keppra. 4. Chronic kidney disease That is stable. He has an AV fistula in place for when he needs dialysis. Will start Metformin while here (see #6). His BMP is done intermittently. 5. Parkinson's disease. He is on his home meds. He has a shuffling gait, walks slouched over, toe walks. He is working with physical therapy and slowly, slowly improving. Plan is for discharge to SNF then LTAC, no longer to live alone at home. 6. Diabetes mellitus. A1c is 6.4%. At home he was supposedly taking Lantus 8U qpm. Here Lantus 5 units was causing hypoglycemia so that was discontinued. He is only on sliding scale. Overall he has been getting 1 unit to 2 units before meals once or twice a day. We though about starting metformin but in view of creat 3.8-4, will hold off on that 7. Chronic atrial fibrillation. Rate is controlled and he is on anticoagulation. 8. Profound deafness. We will try and find batteries for him. Otherwise, all communication to him is with writing, but he speaks his responses. 9. Hypertension BP is controlled on his home medications. 10. Chronic low back pain. He was getting Tylenol with codeine but that worsened his confusion so now he is on topical Lidocaine patch. Pain is controlled. 11. GERD. He is stable on Protonix. - Current Meds Current Meds: Current Medications Generic Name Dose Route Start Last Admin Trade Name Freq PRN Reason Stop Dose Admin Acetaminophen 650 mg 12/09/21 15:00 12/29/21 23:30 Acetaminophen 325 Mg Tablet PO 650 mg Q4HR PRN Administration Pain 1 to 4, or Fever Acetaminophen/Codeine Phosphate 0.5 tab 12/12/21 14:18 12/29/21 05:37 Acetaminophen/Codeine 300 Mg/30 Mg Tablet PO 0.5 tab QPM PRN Administration Severe Pain Apixaban 2.5 mg 12/12/21 21:00 12/30/21 21:21 Apixaban 2.5 Mg Tablet PO 2.5 mg BID PEREZ Administration Atorvastatin Calcium 40 mg 12/10/21 21:00 12/30/21 21:21 Atorvastatin 40 Mg Tablet PO 40 mg QPM PEREZ Administration Calcitriol 0.5 mcg 12/11/21 09:00 12/30/21 09:15 Calcitriol 0.25 Mcg Capsule PO 0.5 mcg DAILY PEREZ Administration Carbidopa/Levodopa 2 tab 12/10/21 15:00 12/31/21 01:38 Carbidopa/Levodopa 25 Mg/250 Mg Tablet PO 2 tab 0200,0800,1400,2000 PEREZ Administration Diltiazem HCl 180 mg 12/11/21 09:00 12/30/21 09:15 Diltiazem Cd 180 Mg Capsule PO 180 mg DAILY PEREZ Administration Divalproex Sodium 500 mg 12/13/21 09:00 12/30/21 21:21 Divalproex Er 250 Mg Tablet PO 500 mg BID PEREZ Administration Entacapone 200 mg 12/10/21 21:00 12/30/21 21:22 Entacapone 200 Mg Tablet PO Not Given BID PEREZ Fluticasone Propionate 1 sprays 12/11/21 09:00 12/30/21 09:15 Fluticasone Nasal [place] TAWANDA 1 spr DAILY PEREZ Administration Insulin Aspart 1 - 5 unit 12/09/21 17:00 12/30/21 21:22 Insulin Aspart 300 Unit/3 Ml Pen SUBQ 1 unit 0800,1200,1700,2100 PEREZ Administration Protocol Levetiracetam 500 mg 12/14/21 09:00 12/30/21 09:15 Levetiracetam 250 Mg Tablet PO 500 mg DAILY PEREZ Administration Levetiracetam 250 mg 12/30/21 22:27 12/30/21 22:40 Levetiracetam 250 Mg Tablet PO 250 mg QPM PEREZ Administration Lidocaine 1 patch 12/12/21 14:19 12/29/21 05:37 Lidocaine Patch 5% TOP 1 patch DAILY PRN Administration PAIN Lorazepam 1 mg 12/09/21 16:25 12/10/21 08:37 Lorazepam 2 Mg/Ml Vial IVP 1 mg Q2H PRN Administration Seizure Magnesium Oxide 400 mg 12/19/21 17:00 12/30/21 16:54 Magnesium Oxide 400 Mg Tablet PO 400 mg BIDWM PEREZ Administration Multivitamins 1 tab 12/11/21 08:00 12/30/21 09:15 Multivitamin Tablet PO 1 tab DAILYWM PEREZ Administration Pantoprazole Sodium 40 mg 12/10/21 16:00 12/31/21 05:35 Pantoprazole 40 Mg Tablet PO 40 mg BIDAC PEREZ Administration Polyethylene Glycol 17 gm 12/17/21 09:00 12/30/21 09:15 Polyethylene Glycol 3350 17 Gm Packet PO 17 gm DAILY PEREZ Administration Senna 8.6 mg 12/10/21 14:29 12/18/21 09:00 Senna 8.6 Mg Tablet PO 8.6 mg DAILY PRN Administration Constipation Sodium Chloride 10 ml 12/09/21 15:00 12/15/21 13:49 Sodium Chloride Flush 0.9% 10 Ml Syringe IVP 10 ml PRN PRN Administration NEEDED PER PROVIDER ORDERS Sodium Chloride 10 ml 12/09/21 17:00 12/31/21 00:44 Sodium Chloride Flush 0.9% 10 Ml Syringe IVP Not Given 0100,0900,1700 [facility] Tamsulosin HCl 0.4 mg 12/11/21 09:00 12/30/21 09:15 Tamsulosin 0.4 Mg Capsule PO 0.4 mg DAILY PEREZ Administration - Lab Result Fish Bone Diagrams: 12/27/21 08:14 12/27/21 08:14 Subjective - Subjective Patient Reports: Other (Patient complained about experiencing flashing lights yesterday. He has not experienced it again since last night. He reports it usually occurs when he is stressed. He denies any other complaints.) Objective Vital Signs: Vital Signs - 24 hr 12/30/21 07:31 Temperature 36.2 C L Heart Rate [ 85 Brachial] Respiratory 16 Rate Blood Pressure 103/80 [Left Brachial artery] O2 Saturation 100 Oxygen O2 Source Room air I&O (Last 24 Hrs): Intake and Output Totals x24h 12/29/21 12/30/21 12/31/21 23:59 23:59 23:59 Intake Total 1340 850 Output Total 1350 1450 725 Balance -10 600 725 General: Other (Awake and alert but not oriented to time place or reason.) HEENT: PERRLA, EOMI Neck: Supple, No JVD Neuro: Alert, Non Focal Cardiovascular: Regular rate Respiratory: Chest non-tender, No respiratory distress, Breath sounds nml Abdomen: Normal bowel sounds, Soft Extremities: No clubbing, No cyanosis, No edema Skin: No rashes, No breakdown, No significant lesion - Results Results: Laboratory Results WBC 7.1 x10^3/uL (4.8-10.8) 12/27/21 08:14 RBC 3.62 10^6/uL (4.70-6.10) L 12/27/21 08:14 Hgb 10.9 g/dL (14.0-18.0) L 12/27/21 08:14 Hct 34.4 % (42.0-52.0) L 12/27/21 08:14 MCV 95.0 fL (80.0-94.0) H 12/27/21 08:14 MCH 30.1 pg (27.0-31.0) 12/27/21 08:14 MCHC 31.7 g/dL (32.0-36.0) L 12/27/21 08:14 RDW 15.2 % (12.0-15.0) H 12/27/21 08:14 Plt Count 179 10^3/uL (130-450) 12/27/21 08:14 MPV 12.2 fL (7.4-11.4) H 12/27/21 08:14 Neut # (Auto) 4.5 10^3/uL (1.5-6.6) 12/27/21 08:14 Lymph # (Auto) 1.7 10^3/uL (1.5-3.5) 12/27/21 08:14 [place] # (Auto) 0.8 10^3/uL (0.0-1.0) 12/27/21 08:14 Eos # (Auto) 0.1 10^3/uL (0.0-0.7) 12/27/21 08:14 Baso # (Auto) 0.1 10^3/uL (0.0-0.1) 12/27/21 08:14 Absolute Nucleated RBC 0.00 x10^3/uL 12/27/21 08:14 Nucleated RBC % 0.0 /100WBC 12/27/21 08:14 APTT 28.1 secs (24.9-33.3) 12/10/21 09:50 Sodium 135 mmol/L (135-145) 12/27/21 08:14 Potassium 4.6 mmol/L (3.5-5.0) 12/27/21 08:14 Chloride 102 mmol/L (101-111) 12/27/21 08:14 Carbon Dioxide 21 mmol/L (21-32) 12/27/21 08:14 Anion Gap 12.0 (6-13) 12/27/21 08:14 BUN 69 mg/dL (6-20) H 12/27/21 08:14 Creatinine 4.3 mg/dL (0.6-1.2) H 12/27/21 08:14 Estimated GFR (MDRD) 14 (>89) L 12/27/21 08:14 Glucose 126 mg/dL (70-100) H 12/27/21 08:14 POC Whole Bld Glucose 151 mg/dL (70 - 100) H 12/30/21 20:30 Estimat Average Glucose 137 mg/dL (70-100) H 12/10/21 04:35 Hemoglobin A1c % 6.4 % (4.27-6.07) H 12/10/21 04:35 Calcium 9.4 mg/dL (8.5-10.3) 12/27/21 08:14 Phosphorus 4.1 mg/dL (2.5-4.6) 12/16/21 05:54 Magnesium 1.8 mg/dL (1.7-2.8) 12/21/21 17:27 Total Bilirubin 1.8 mg/dL (0.2-1.0) H 12/09/21 12:56 AST 13 IU/L (10-42) 12/09/21 12:56 ALT < 10 IU/L (10-60) L 12/09/21 12:56 Alkaline Phosphatase 60 IU/L (42-121) 12/09/21 12:56 Total Creatine Kinase 51 IU/L (22-269) 12/09/21 12:56 Troponin I High Sens 33.5 ng/L (2.3-19.7) H* 12/09/21 19:01 Total Protein 7.4 g/dL (6.7-8.2) 12/09/21 12:56 Albumin 4.1 g/dL (3.2-5.5) 12/09/21 12:56 Globulin 3.3 g/dL (2.1-4.2) 12/09/21 12:56 Albumin/Globulin Ratio 1.2 (1.0-2.2) 12/09/21 12:56 Lipase 35 U/L (22-51) 12/09/21 12:56 Urine Color YELLOW 12/09/21 13:59 Urine Clarity HAZY (CLEAR) 12/09/21 13:59 Urine pH 5.5 PH (5.0-7.5) 12/09/21 13:59 Ur Specific [place] >=1.030 (1.002-1.030) H 12/09/21 13:59 Urine Protein >=300 mg/dL (NEGATIVE) H 12/09/21 13:59 Urine Glucose (UA) NEGATIVE mg/dL (NEGATIVE) 12/09/21 13:59 Urine Ketones NEGATIVE mg/dL (NEGATIVE) 12/09/21 13:59 Urine Occult Blood MODERATE (NEGATIVE) H 12/09/21 13:59 Urine Nitrite NEGATIVE (NEGATIVE) 12/09/21 13:59 Urine Bilirubin NEGATIVE (NEGATIVE) 12/09/21 13:59 Urine Urobilinogen 0.2 (NORMAL) E.U./dL (NORMAL) 12/09/21 13:59 Ur Leukocyte Esterase NEGATIVE (NEGATIVE) 12/09/21 13:59 Urine RBC 11-25 /HPF (0-5) H 12/09/21 13:59 Urine WBC 6-10 /HPF (0-3) H 12/09/21 13:59 Ur Squamous Epith Cells RARE Squamous (<= Few) 12/09/21 13:59 Urine Bacteria Moderate /HPF (None Seen) H 12/09/21 13:59 Urine Casts 3-5 Granular Casts /LPF 12/09/21 13:59 Ur Microscopic Review INDICATED 12/09/21 13:59 Urine Culture Comments NOT INDICATED 12/09/21 13:59 Nasal Adenovirus (PCR) NOT DETECTED 12/09/21 13:59 Nasal B. parapertussis DNA (PCR) NOT DETECTED 12/09/21 13:59 Nasal Coronavir 229E PCR NOT DETECTED 12/09/21 13:59 Nasal Coronavir HKU1 PCR NOT DETECTED 12/09/21 13:59 Nasal Coronavir NL63 PCR NOT DETECTED 12/09/21 13:59 Nasal Coronavir OC43 PCR NOT DETECTED 12/09/21 13:59 Nasal Enterovir/Rhinovir PCR NOT DETECTED 12/09/21 13:59 Nasal Influenza B PCR NOT DETECTED 12/09/21 13:59 Nasal Influenza A PCR NOT DETECTED 12/09/21 13:59 Nasal Parainfluen 1 PCR NOT DETECTED 12/09/21 13:59 Nasal Parainfluen 2 PCR NOT DETECTED 12/09/21 13:59 Nasal Parainfluen 3 PCR NOT DETECTED 12/09/21 13:59 Nasal Parainfluen 4 PCR NOT DETECTED 12/09/21 13:59 Nasal RSV (PCR) NOT DETECTED 12/09/21 13:59 Nasal B.pertussis DNA PCR NOT DETECTED 12/09/21 13:59 Nasal C.pneumoniae (PCR) NOT DETECTED 12/09/21 13:59 [place] Human Metapneumo PCR NOT DETECTED 12/09/21 13:59 Nasal M.pneumoniae (PCR) NOT DETECTED 12/09/21 13:59 Nasal SARS-CoV-2 (PCR) NOT DETECTED 12/09/21 13:59 Last Dose Date Not Reportable 12/20/21 12:00 Last Dose Time Not Reportable 12/20/21 12:00 Urine Opiates Screen NEGATIVE (NEGATIVE) 12/09/21 13:59 Ur Oxycodone Screen NEGATIVE (NEGATIVE) 12/09/21 13:59 Urine Methadone Screen NEGATIVE (NEGATIVE) 12/09/21 13:59 Ur Propoxyphene Screen NEGATIVE (NEGATIVE) 12/09/21 13:59 Ur Barbiturates Screen NEGATIVE (NEGATIVE) 12/09/21 13:59 Valproic Acid 31.0 ug/mL 12/20/21 12:00 Ur Tricyclics Screen NEGATIVE (NEGATIVE) 12/09/21 13:59 Levetiracetam 20.5 ug/mL (10.0-40.0) 12/20/21 12:00 Ur Phencyclidine Scrn NEGATIVE (NEGATIVE) 12/09/21 13:59 Ur Amphetamine Screen NEGATIVE (NEGATIVE) 12/09/21 13:59 U Methamphetamines Scrn NEGATIVE (NEGATIVE) 12/09/21 13:59 U Benzodiazepines Scrn NEGATIVE (NEGATIVE) 12/09/21 13:59 Urine Cocaine Screen NEGATIVE (NEGATIVE) 12/09/21 13:59 U Cannabinoids Screen NEGATIVE (NEGATIVE) 12/09/21 13:59 - Procedures Procedures: Procedures VENOUS CATHETERIZATION NEC (04/17/14) ABX Reporting Has patient been on IV antibiotics over the past 48 hours?: No
[2021-12-31] MEDS: INSULIN ASPART 300 UNIT/3 ML PEN SUBQ SCH ×4 (08:29→20:35)
[2021-12-31] MEDS: MULTIVITAMIN TABLET PO SCH (08:42)
[2021-12-31] MEDS: MAGNESIUM OXIDE 400 MG TABLET PO SCH ×2 (08:42→16:11)
[2021-12-31] MEDS: levETIRAcetam 250 MG TABLET PO SCH ×2 (08:43→20:19)
[2021-12-31] MEDS: APIXABAN 2.5 MG TABLET PO SCH ×2 (08:43→20:24)
[2021-12-31] MEDS: calcitrioL 0.25 MCG CAPSULE PO SCH (08:44)
[2021-12-31] MEDS: diltiaZEM CD 180 MG CAPSULE PO SCH (08:45)
[2021-12-31] MEDS: DIVALPROEX ER 250 MG TABLET PO SCH ×2 (08:46→20:19)
[2021-12-31] MEDS: ENTACAPONE 200 MG TABLET PO SCH ×2 (08:47→20:35)
[2021-12-31] MEDS: polyethylene glycoL 3350 17 GM PACKET PO SCH (08:47)
[2021-12-31] MEDS: TAMSULOSIN 0.4 MG CAPSULE PO SCH (08:47)
[2021-12-31] MEDS: FLUTICASONE NASAL SPRAY NAS SCH (08:48)
[2021-12-31] MEDS: ACETAMINOPHEN 325 MG TABLET PO PRN ×2 (10:55→20:19)
[2021-12-31] MEDS: ATORVASTATIN 40 MG TABLET PO SCH (20:19)
[2022-01-01] MEDS: CARBIDOPA/LEVODOPA 25 MG/250 MG TABLET PO SCH ×4 (01:07→20:11)
[2022-01-01] MEDS: PANTOPRAZOLE 40 MG TABLET PO SCH ×2 (05:55→16:17)
[2022-01-01] MEDS: INSULIN ASPART 300 UNIT/3 ML PEN SUBQ SCH ×4 (07:24→21:54)
--- NOTE | 2022-01-01 07:41 | PROVIDER PROGRESS NOTE ---
Assessment/Plan - Problem List (1) Seizure Assessment/Plan: 01/01/22 He was more agitated today. Keppra changed to Keppra to 50 mg p.o. twice daily. 12/31/21 Patient complained of experiencing flashes of light in his vision last night. He explained that this is usually associated with stressful times for him. For concern that these are possible RLS prior to seizure his Keppra dosage was adjusted to Keppra 500 mg in the morning and 250 mg in the evening. Will monitor for increased somnolence on this higher dose. 12/30/21 He had several witnessed seizures on admission, and in spite of Keppra had a nother seizure. Repeat CT was done and there were no acute findings. Depakote was added to his Keppra. Since that time the patient has not had any seizures. Awaiting placement. 2. Frequent falls. He has a history of frequent falls at home and in the past. He has been h ospitalized elsewhere for seizures and needed SNF and PT for rehab. Before this admission, he had a ground-level fall before his seizures were witnessed. He continues to need rehab because of parkinsonian gait, bad balance, intermittent confusion, deconditioning, poor vision, and deafness. He has been working with physical therapy and physical therapy recommends discharge to SNF for rehab. From there he will have long-term placement. We have already sent out a DMV form for him to no longer allow drive and he is aware of that. 3. Confusion. This comes and goes. But he has been stable for the last few days. During this hospitalization we attributed to some of that with the new medications including the Depakote, Ativan, and Keppra. 4. Chronic kidney disease That is stable. He has an AV fistula in place for when he needs dialysis. Will start Metformin while here (see #6). His BMP is done intermittently. 5. Parkinson's disease. He is on his home meds. He has a shuffling gait, walks slouched over, toe walks. He is working with physical therapy and slowly, slowly improving. Plan is for discharge to SNF then LTAC, no longer to live alone at home. 6. Diabetes mellitus. A1c is 6.4%. At home he was supposedly taking Lantus 8U qpm. Here Lantus 5 units was causing hypoglycemia so that was discontinued. He is only on sliding scale. Overall he has been getting 1 unit to 2 units before meals once or twice a day. We though about starting metformin but in view of creat 3.8-4, will hold off on that 7. Chronic atrial fibrillation. Rate is controlled and he is on anticoagulation. 8. Profound deafness. We will try and find batteries for him. Otherwise, all communication to him is with writing, but he speaks his responses. 9. Hypertension BP is controlled on his home medications. 10. Chronic low back pain. He was getting Tylenol with codeine but that worsened his confusion so now he is on topical Lidocaine patch. Pain is controlled. 11. GERD. He is stable on Protonix. - Current Meds Current Meds: Current Medications Generic Name Dose Route Start Last Admin Trade Name Freq PRN Reason Stop Dose Admin Acetaminophen 650 mg 12/09/21 15:00 12/31/21 20:19 Acetaminophen 325 Mg Tablet PO 650 mg Q4HR PRN Administration Pain 1 to 4, or Fever Acetaminophen/Codeine Phosphate 0.5 tab 12/12/21 14:18 12/29/21 05:37 Acetaminophen/Codeine 300 Mg/30 Mg Tablet PO 0.5 tab QPM PRN Administration Severe Pain Apixaban 2.5 mg 12/12/21 21:00 12/31/21 20:24 Apixaban 2.5 Mg Tablet PO 2.5 mg BID PEREZ Administration Atorvastatin Calcium 40 mg 12/10/21 21:00 12/31/21 20:19 Atorvastatin 40 Mg Tablet PO 40 mg QPM PEREZ Administration Calcitriol 0.5 mcg 12/11/21 09:00 12/31/21 08:44 Calcitriol 0.25 Mcg Capsule PO 0.5 mcg DAILY PEREZ Administration Carbidopa/Levodopa 2 tab 12/10/21 15:00 01/01/22 01:07 Carbidopa/Levodopa 25 Mg/250 Mg Tablet PO 2 tab 0200,0800,1400,2000 PEREZ Administration Diltiazem HCl 180 mg 12/11/21 09:00 12/31/21 08:45 Diltiazem Cd 180 Mg Capsule PO 180 mg DAILY PEREZ Administration Divalproex Sodium 500 mg 12/13/21 09:00 12/31/21 20:19 Divalproex Er 250 Mg Tablet PO 500 mg BID PEREZ Administration Entacapone 200 mg 12/10/21 21:00 12/31/21 20:35 Entacapone 200 Mg Tablet PO Not Given BID PEREZ Fluticasone Propionate 1 sprays 12/11/21 09:00 12/31/21 08:48 Fluticasone Nasal [place] TAWANDA 1 spr DAILY PEREZ Administration Insulin Aspart 1 - 5 unit 12/09/21 17:00 01/01/22 07:24 Insulin Aspart 300 Unit/3 Ml Pen SUBQ Not Given 0800,1200,1700,2100 [facility] Protocol Levetiracetam 250 mg 12/30/21 22:27 12/31/21 20:19 Levetiracetam 250 Mg Tablet PO 250 mg QPM PEREZ Administration Lidocaine 1 patch 12/12/21 14:19 12/29/21 05:37 Lidocaine Patch 5% TOP 1 patch DAILY PRN Administration PAIN Lorazepam 1 mg 12/09/21 16:25 12/10/21 08:37 Lorazepam 2 Mg/Ml Vial IVP 1 mg Q2H PRN Administration Seizure Magnesium Oxide 400 mg 12/19/21 17:00 12/31/21 16:11 Magnesium Oxide 400 Mg Tablet PO 400 mg BIDWM PEREZ Administration Multivitamins 1 tab 12/11/21 08:00 12/31/21 08:42 Multivitamin Tablet PO 1 tab DAILYWM PEREZ Administration Pantoprazole Sodium 40 mg 12/10/21 16:00 01/01/22 05:55 Pantoprazole 40 Mg Tablet PO 40 mg BIDAC PEREZ Administration Polyethylene Glycol 17 gm 12/17/21 09:00 12/31/21 08:47 Polyethylene Glycol 3350 17 Gm Packet PO 17 gm DAILY PEREZ Administration Senna 8.6 mg 12/10/21 14:29 12/18/21 09:00 Senna 8.6 Mg Tablet PO 8.6 mg DAILY PRN Administration Constipation Tamsulosin HCl 0.4 mg 12/11/21 09:00 12/31/21 08:47 Tamsulosin 0.4 Mg Capsule PO 0.4 mg DAILY PEREZ Administration - Lab Result Fish Bone Diagrams: 12/27/21 08:14 12/27/21 08:14 - Additional Planning My Orders: My Active Orders 01/01/22 09:00 levETIRAcetam [Keppra] 250 mg PO DAILY Subjective - Subjective Patient Reports: Other (Patient denied any new complaints today. It was reported that he was somewhat more agitated last night.) Objective Vital Signs: Vital Signs - 24 hr 01/01/22 07:19 Heart Rate [ 78 Brachial] Respiratory 16 Rate Blood Pressure 140/83 H [Left Brachial artery] O2 Saturation 97 Oxygen O2 Source Room air I&O (Last 24 Hrs): Intake and Output Totals x24h 12/30/21 12/31/21 01/01/22 23:59 23:59 23:59 Intake Total 850 1110 Output Total 1450 1800 700 Balance -600 -690 -700 Comments/Notes: General: Other (Awake and alert but not oriented to time place or reason.) HEENT: PERRLA, EOMI Neck: Supple, No JVD Neuro: Alert, Non Focal Cardiovascular: Regular rate Respiratory: Chest non-tender, No respiratory distress, Breath sounds nml Abdomen: Normal bowel sounds, Soft Extremities: No clubbing, No cyanosis, No edema Skin: No rashes, No breakdown, No significant lesion - Results Results: Laboratory Results WBC 7.1 x10^3/uL (4.8-10.8) 12/27/21 08:14 RBC 3.62 10^6/uL (4.70-6.10) L 12/27/21 08:14 Hgb 10.9 g/dL (14.0-18.0) L 12/27/21 08:14 Hct 34.4 % (42.0-52.0) L 12/27/21 08:14 MCV 95.0 fL (80.0-94.0) H 12/27/21 08:14 MCH 30.1 pg (27.0-31.0) 12/27/21 08:14 MCHC 31.7 g/dL (32.0-36.0) L 12/27/21 08:14 RDW 15.2 % (12.0-15.0) H 12/27/21 08:14 Plt Count 179 10^3/uL (130-450) 12/27/21 08:14 MPV 12.2 fL (7.4-11.4) H 12/27/21 08:14 Neut # (Auto) 4.5 10^3/uL (1.5-6.6) 12/27/21 08:14 Lymph # (Auto) 1.7 10^3/uL (1.5-3.5) 12/27/21 08:14 [place] # (Auto) 0.8 10^3/uL (0.0-1.0) 12/27/21 08:14 Eos # (Auto) 0.1 10^3/uL (0.0-0.7) 12/27/21 08:14 Baso # (Auto) 0.1 10^3/uL (0.0-0.1) 12/27/21 08:14 Absolute Nucleated RBC 0.00 x10^3/uL 12/27/21 08:14 Nucleated RBC % 0.0 /100WBC 12/27/21 08:14 APTT 28.1 secs (24.9-33.3) 12/10/21 09:50 Sodium 135 mmol/L (135-145) 12/27/21 08:14 Potassium 4.6 mmol/L (3.5-5.0) 12/27/21 08:14 Chloride 102 mmol/L (101-111) 12/27/21 08:14 Carbon Dioxide 21 mmol/L (21-32) 12/27/21 08:14 Anion Gap 12.0 (6-13) 12/27/21 08:14 BUN 69 mg/dL (6-20) H 12/27/21 08:14 Creatinine 4.3 mg/dL (0.6-1.2) H 12/27/21 08:14 Estimated GFR (MDRD) 14 (>89) L 12/27/21 08:14 Glucose 126 mg/dL (70-100) H 12/27/21 08:14 POC Whole Bld Glucose 103 mg/dL (70 - 100) H 01/01/22 07:18 Estimat Average Glucose 137 mg/dL (70-100) H 12/10/21 04:35 Hemoglobin A1c % 6.4 % (4.27-6.07) H 12/10/21 04:35 Calcium 9.4 mg/dL (8.5-10.3) 12/27/21 08:14 Phosphorus 4.1 mg/dL (2.5-4.6) 12/16/21 05:54 Magnesium 1.8 mg/dL (1.7-2.8) 12/21/21 17:27 Total Bilirubin 1.8 mg/dL (0.2-1.0) H 12/09/21 12:56 AST 13 IU/L (10-42) 12/09/21 12:56 ALT < 10 IU/L (10-60) L 12/09/21 12:56 Alkaline Phosphatase 60 IU/L (42-121) 12/09/21 12:56 Total Creatine Kinase 51 IU/L (22-269) 12/09/21 12:56 Troponin I High Sens 33.5 ng/L (2.3-19.7) H* 12/09/21 19:01 Total Protein 7.4 g/dL (6.7-8.2) 12/09/21 12:56 Albumin 4.1 g/dL (3.2-5.5) 12/09/21 12:56 Globulin 3.3 g/dL (2.1-4.2) 12/09/21 12:56 Albumin/Globulin Ratio 1.2 (1.0-2.2) 12/09/21 12:56 Lipase 35 U/L (22-51) 12/09/21 12:56 Urine Color YELLOW 12/09/21 13:59 Urine Clarity HAZY (CLEAR) 12/09/21 13:59 Urine pH 5.5 PH (5.0-7.5) 12/09/21 13:59 Ur Specific [place] >=1.030 (1.002-1.030) H 12/09/21 13:59 Urine Protein >=300 mg/dL (NEGATIVE) H 12/09/21 13:59 Urine Glucose (UA) NEGATIVE mg/dL (NEGATIVE) 12/09/21 13:59 Urine Ketones NEGATIVE mg/dL (NEGATIVE) 12/09/21 13:59 Urine Occult Blood MODERATE (NEGATIVE) H 12/09/21 13:59 Urine Nitrite NEGATIVE (NEGATIVE) 12/09/21 13:59 Urine Bilirubin NEGATIVE (NEGATIVE) 12/09/21 13:59 Urine Urobilinogen 0.2 (NORMAL) E.U./dL (NORMAL) 12/09/21 13:59 Ur Leukocyte Esterase NEGATIVE (NEGATIVE) 12/09/21 13:59 Urine RBC 11-25 /HPF (0-5) H 12/09/21 13:59 Urine WBC 6-10 /HPF (0-3) H 12/09/21 13:59 Ur Squamous Epith Cells RARE Squamous (<= Few) 12/09/21 13:59 Urine Bacteria Moderate /HPF (None Seen) H 12/09/21 13:59 Urine Casts 3-5 Granular Casts /LPF 12/09/21 13:59 Ur Microscopic Review INDICATED 12/09/21 13:59 Urine Culture Comments NOT INDICATED 12/09/21 13:59 Nasal Adenovirus (PCR) NOT DETECTED 12/09/21 13:59 Nasal B. parapertussis DNA (PCR) NOT DETECTED 12/09/21 13:59 Nasal Coronavir 229E PCR NOT DETECTED 12/09/21 13:59 Nasal Coronavir HKU1 PCR NOT DETECTED 12/09/21 13:59 Nasal Coronavir NL63 PCR NOT DETECTED 12/09/21 13:59 Nasal Coronavir OC43 PCR NOT DETECTED 12/09/21 13:59 Nasal Enterovir/Rhinovir PCR NOT DETECTED 12/09/21 13:59 Nasal Influenza B PCR NOT DETECTED 12/09/21 13:59 Nasal Influenza A PCR NOT DETECTED 12/09/21 13:59 Nasal Parainfluen 1 PCR NOT DETECTED 12/09/21 13:59 Nasal Parainfluen 2 PCR NOT DETECTED 12/09/21 13:59 Nasal Parainfluen 3 PCR NOT DETECTED 12/09/21 13:59 Nasal Parainfluen 4 PCR NOT DETECTED 12/09/21 13:59 Nasal RSV (PCR) NOT DETECTED 12/09/21 13:59 Nasal B.pertussis DNA PCR NOT DETECTED 12/09/21 13:59 Nasal C.pneumoniae (PCR) NOT DETECTED 12/09/21 13:59 T[place]anda Human Metapneumo PCR NOT DETECTED 12/09/21 13:59 Nasal M.pneumoniae (PCR) NOT DETECTED 12/09/21 13:59 Nasal SARS-CoV-2 (PCR) NOT DETECTED 12/09/21 13:59 Last Dose Date Not Reportable 12/20/21 12:00 Last Dose Time Not Reportable 12/20/21 12:00 Urine Opiates Screen NEGATIVE (NEGATIVE) 12/09/21 13:59 Ur Oxycodone Screen NEGATIVE (NEGATIVE) 12/09/21 13:59 Urine Methadone Screen NEGATIVE (NEGATIVE) 12/09/21 13:59 Ur Propoxyphene Screen NEGATIVE (NEGATIVE) 12/09/21 13:59 Ur Barbiturates Screen NEGATIVE (NEGATIVE) 12/09/21 13:59 Valproic Acid 31.0 ug/mL 12/20/21 12:00 Ur Tricyclics Screen NEGATIVE (NEGATIVE) 12/09/21 13:59 Levetiracetam 20.5 ug/mL (10.0-40.0) 12/20/21 12:00 Ur Phencyclidine Scrn NEGATIVE (NEGATIVE) 12/09/21 13:59 Ur Amphetamine Screen NEGATIVE (NEGATIVE) 12/09/21 13:59 U Methamphetamines Scrn NEGATIVE (NEGATIVE) 12/09/21 13:59 U Benzodiazepines Scrn NEGATIVE (NEGATIVE) 12/09/21 13:59 Urine Cocaine Screen NEGATIVE (NEGATIVE) 12/09/21 13:59 U Cannabinoids Screen NEGATIVE (NEGATIVE) 12/09/21 13:59 - Procedures Procedures: Procedures [facility] (04/17/14) ABX Reporting Has patient been on IV antibiotics over the past 48 hours?: No
[2022-01-01] MEDS: calcitrioL 0.25 MCG CAPSULE PO SCH (08:12)
[2022-01-01] MEDS: ACETAMINOPHEN 325 MG TABLET PO PRN ×2 (08:12→16:25)
[2022-01-01] MEDS: MULTIVITAMIN TABLET PO SCH (08:13)
[2022-01-01] MEDS: MAGNESIUM OXIDE 400 MG TABLET PO SCH ×2 (08:13→16:17)
[2022-01-01] MEDS: diltiaZEM CD 180 MG CAPSULE PO SCH (08:13)
[2022-01-01] MEDS: DIVALPROEX ER 250 MG TABLET PO SCH ×2 (08:13→21:53)
[2022-01-01] MEDS: TAMSULOSIN 0.4 MG CAPSULE PO SCH (08:13)
[2022-01-01] MEDS: levETIRAcetam 250 MG TABLET PO SCH ×2 (08:13→21:53)
[2022-01-01] MEDS: APIXABAN 2.5 MG TABLET PO SCH ×2 (08:14→21:53)
[2022-01-01] MEDS: FLUTICASONE NASAL SPRAY NAS SCH (09:45)
[2022-01-01] MEDS: polyethylene glycoL 3350 17 GM PACKET PO SCH (10:22)
[2022-01-01] MEDS: ENTACAPONE 200 MG TABLET PO SCH ×2 (10:23→22:02)
[2022-01-01] MEDS: ATORVASTATIN 40 MG TABLET PO SCH (21:53)
[2022-01-02] MEDS: CARBIDOPA/LEVODOPA 25 MG/250 MG TABLET PO SCH ×4 (02:05→21:01)
[2022-01-02] MEDS: PANTOPRAZOLE 40 MG TABLET PO SCH ×3 (06:08→17:11)
--- NOTE | 2022-01-02 07:32 | PROVIDER PROGRESS NOTE ---
Assessment/Plan - Problem List (1) Seizure Assessment/Plan: 01/02/22 Patient is stable and calm today. Continue Keppra 250 mg p.o. twice daily. 01/01/22 He was more agitated today. Keppra changed to Keppra to 50 mg p.o. twice daily. 12/31/21 Patient complained of experiencing flashes of light in his vision last night. He explained that this is usually associated with stressful times for him. For concern that these are possible RLS prior to seizure his Keppra dosage was adjusted to Keppra 500 mg in the morning and 250 mg in the evening. Will monitor for increased somnolence on this higher dose. 12/30/21 He had several witnessed seizures on admission, and in spite of Keppra had another seizure. Repeat CT was done and there were no acute findings. Depakote was added to his Keppra. Since that time the patient has not had any seizures. Awaiting placement. 2. Frequent falls. He has a history of frequent falls at home and in the past. He has been hospitalized elsewhere for seizures and needed SNF and PT for rehab. Before this admission, he had a ground-level fall before his seizures were witnessed. He continues to need rehab because of parkinsonian gait, bad balance, intermittent confusion, deconditioning, poor vision, and deafness. He has been working with physical therapy and physical therapy recommends discharge to SNF for rehab. From there he will have long-term placement. We have already sent out a DMV form for him to no longer allow drive and he is aware of that. 3. Confusion. This comes and goes. But he has been stable for the last few days. During this hospitalization we attributed to some of that with the new medications including the Depakote, Ativan, and Keppra. 4. Chronic kidney disease That is stable. He has an AV fistula in place for when he needs dialysis. Will start Metformin while here (see #6). His BMP is done intermittently. 5. Parkinson's disease. He is on his home meds. He has a shuffling gait, walks slouched over, toe walks. He is working with physical therapy and slowly, slowly improving. Plan is for discharge to SNF then LTAC, no longer to live alone at home. 6. Diabetes mellitus. A1c is 6.4%. At home he was supposedly taking Lantus 8U qpm. Here Lantus 5 units was causing hypoglycemia so that was discontinued. He is only on sliding scale. Overall he has been getting 1 unit to 2 units before meals once or twice a day. We though about starting metformin but in view of creat 3.8-4, will hold off on that 7. Chronic atrial fibrillation. Rate is controlled and he is on anticoagulation. 8. Profound deafness. We will try and find batteries for him. Otherwise, all communication to him is with writing, but he speaks his responses. 9. Hypertension BP is controlled on his home medications. 10. Chronic low back pain. He was getting Tylenol with codeine but that worsened his confusion so now he is on topical Lidocaine patch. Pain is controlled. 11. GERD. He is stable on Protonix. - Current Meds Current Meds: Current Medications Generic Name Dose Route Start Last Admin Trade Name Freq PRN Reason Stop Dose Admin Acetaminophen 650 mg 12/09/21 15:00 01/01/22 16:25 Acetaminophen 325 Mg Tablet PO 650 mg Q4HR PRN Administration Pain 1 to 4, or Fever Acetaminophen/Codeine Phosphate 0.5 tab 12/12/21 14:18 12/29/21 05:37 Acetaminophen/Codeine 300 Mg/30 Mg Tablet PO 0.5 tab QPM PRN Administration Severe Pain Apixaban 2.5 mg 12/12/21 21:00 01/01/22 21:53 Apixaban 2.5 Mg Tablet PO 2.5 mg BID PEREZ Administration Atorvastatin Calcium 40 mg 12/10/21 21:00 01/01/22 21:53 Atorvastatin 40 Mg Tablet PO 40 mg QPM PEREZ Administration Calcitriol 0.5 mcg 12/11/21 09:00 01/01/22 08:12 Calcitriol 0.25 Mcg Capsule PO 0.5 mcg DAILY PEREZ Administration Carbidopa/Levodopa 2 tab 12/10/21 15:00 01/02/22 02:05 Carbidopa/Levodopa 25 Mg/250 Mg Tablet PO 2 tab 0200,0800,1400,2000 PEREZ Administration Diltiazem HCl 180 mg 12/11/21 09:00 01/01/22 08:13 Diltiazem Cd 180 Mg Capsule PO 180 mg DAILY PEREZ Administration Divalproex Sodium 500 mg 12/13/21 09:00 01/01/22 21:53 Divalproex Er 250 Mg Tablet PO 500 mg BID PEREZ Administration Entacapone 200 mg 12/10/21 21:00 01/01/22 22:02 Entacapone 200 Mg Tablet PO Not Given BID PEREZ Fluticasone Propionate 1 sprays 12/11/21 09:00 01/01/22 09:45 Fluticasone Nasal [place] TAWANDA 1 spr DAILY PEREZ Administration Insulin Aspart 1 - 5 unit 12/09/21 17:00 01/01/22 21:54 Insulin Aspart 300 Unit/3 Ml Pen SUBQ 1 unit 0800,1200,1700,2100 PEREZ Administration Protocol Levetiracetam 250 mg 12/30/21 22:27 01/01/22 21:53 Levetiracetam 250 Mg Tablet PO 250 mg QPM PEREZ Administration Levetiracetam 250 mg 01/01/22 09:00 01/01/22 08:13 Levetiracetam 250 Mg Tablet PO 250 mg DAILY PEREZ Administration Lidocaine 1 patch 12/12/21 14:19 12/29/21 05:37 Lidocaine Patch 5% TOP 1 patch DAILY PRN Administration PAIN Lorazepam 1 mg 12/09/21 16:25 12/10/21 08:37 Lorazepam 2 Mg/Ml Vial IVP 1 mg Q2H PRN Administration Seizure Magnesium Oxide 400 mg 12/19/21 17:00 01/01/22 16:17 Magnesium Oxide 400 Mg Tablet PO 400 mg BIDWM PEREZ Administration Multivitamins 1 tab 12/11/21 08:00 01/01/22 08:13 Multivitamin Tablet PO 1 tab DAILYWM PEREZ Administration Pantoprazole Sodium 40 mg 12/10/21 16:00 01/02/22 06:15 Pantoprazole 40 Mg Tablet PO Not Given BIDAC PEREZ Polyethylene Glycol 17 gm 12/17/21 09:00 01/01/22 10:22 Polyethylene Glycol 3350 17 Gm Packet PO Not Given DAILY PEREZ Senna 8.6 mg 12/10/21 14:29 12/18/21 09:00 Senna 8.6 Mg Tablet PO 8.6 mg DAILY PRN Administration Constipation Tamsulosin HCl 0.4 mg 12/11/21 09:00 01/01/22 08:13 Tamsulosin 0.4 Mg Capsule PO 0.4 mg DAILY PEREZ Administration - Lab Result Fish Bone Diagrams: 12/27/21 08:14 12/27/21 08:14 - Additional Planning My Orders: My Active Orders 01/01/22 09:00 levETIRAcetam [Keppra] 250 mg PO DAILY Subjective - Subjective Patient Reports: Other (Patient denied any new complaints today.) Objective Vital Signs: Oxygen O2 Source Room air I&O (Last 24 Hrs): Intake and Output Totals x24h 12/31/21 01/01/22 01/02/22 23:59 23:59 23:59 Intake Total 1110 1480 100 Output Total 1800 1050 600 Balance -690 430 -500 Comments/Notes: General: Other (Awake and alert but not oriented to time place or reason.) HEENT: PERRLA, EOMI Neck: Supple, No JVD Neuro: Alert, Non Focal Cardiovascular: Regular rate Respiratory: Chest non-tender, No respiratory distress, Breath sounds nml Abdomen: Normal bowel sounds, Soft Extremities: No clubbing, No cyanosis, No edema Skin: No rashes, No breakdown, No significant lesion - Results Results: Laboratory Results WBC 7.1 x10^3/uL (4.8-10.8) 12/27/21 08:14 RBC 3.62 10^6/uL (4.70-6.10) L 12/27/21 08:14 Hgb 10.9 g/dL (14.0-18.0) L 12/27/21 08:14 Hct 34.4 % (42.0-52.0) L 12/27/21 08:14 MCV 95.0 fL (80.0-94.0) H 12/27/21 08:14 MCH 30.1 pg (27.0-31.0) 12/27/21 08:14 MCHC 31.7 g/dL (32.0-36.0) L 12/27/21 08:14 RDW 15.2 % (12.0-15.0) H 12/27/21 08:14 Plt Count 179 10^3/uL (130-450) 12/27/21 08:14 MPV 12.2 fL (7.4-11.4) H 12/27/21 08:14 Neut # (Auto) 4.5 10^3/uL (1.5-6.6) 12/27/21 08:14 Lymph # (Auto) 1.7 10^3/uL (1.5-3.5) 12/27/21 08:14 [place] # (Auto) 0.8 10^3/uL (0.0-1.0) 12/27/21 08:14 Eos # (Auto) 0.1 10^3/uL (0.0-0.7) 12/27/21 08:14 Baso # (Auto) 0.1 10^3/uL (0.0-0.1) 12/27/21 08:14 Absolute Nucleated RBC 0.00 x10^3/uL 12/27/21 08:14 Nucleated RBC % 0.0 /100WBC 12/27/21 08:14 APTT 28.1 secs (24.9-33.3) 12/10/21 09:50 Sodium 135 mmol/L (135-145) 12/27/21 08:14 Potassium 4.6 mmol/L (3.5-5.0) 12/27/21 08:14 Chloride 102 mmol/L (101-111) 12/27/21 08:14 Carbon Dioxide 21 mmol/L (21-32) 12/27/21 08:14 Anion Gap 12.0 (6-13) 12/27/21 08:14 BUN 69 mg/dL (6-20) H 12/27/21 08:14 Creatinine 4.3 mg/dL (0.6-1.2) H 12/27/21 08:14 Estimated GFR (MDRD) 14 (>89) L 12/27/21 08:14 Glucose 126 mg/dL (70-100) H 12/27/21 08:14 POC Whole Bld Glucose 100 mg/dL (70 - 100) 01/02/22 07:26 Estimat Average Glucose 137 mg/dL (70-100) H 12/10/21 04:35 Hemoglobin A1c % 6.4 % (4.27-6.07) H 12/10/21 04:35 Calcium 9.4 mg/dL (8.5-10.3) 12/27/21 08:14 Phosphorus 4.1 mg/dL (2.5-4.6) 12/16/21 05:54 Magnesium 1.8 mg/dL (1.7-2.8) 12/21/21 17:27 Total Bilirubin 1.8 mg/dL (0.2-1.0) H 12/09/21 12:56 AST 13 IU/L (10-42) 12/09/21 12:56 ALT < 10 IU/L (10-60) L 12/09/21 12:56 Alkaline Phosphatase 60 IU/L (42-121) 12/09/21 12:56 Total Creatine Kinase 51 IU/L (22-269) 12/09/21 12:56 Troponin I High Sens 33.5 ng/L (2.3-19.7) H* 12/09/21 19:01 Total Protein 7.4 g/dL (6.7-8.2) 12/09/21 12:56 Albumin 4.1 g/dL (3.2-5.5) 12/09/21 12:56 Globulin 3.3 g/dL (2.1-4.2) 12/09/21 12:56 Albumin/Globulin Ratio 1.2 (1.0-2.2) 12/09/21 12:56 Lipase 35 U/L (22-51) 12/09/21 12:56 Urine Color YELLOW 12/09/21 13:59 Urine Clarity HAZY (CLEAR) 12/09/21 13:59 Urine pH 5.5 PH (5.0-7.5) 12/09/21 13:59 Ur Specific Orange >=1.030 (1.002-1.030) H 12/09/21 13:59 Urine Protein >=300 mg/dL (NEGATIVE) H 12/09/21 13:59 Urine Glucose (UA) NEGATIVE mg/dL (NEGATIVE) 12/09/21 13:59 Urine Ketones NEGATIVE mg/dL (NEGATIVE) 12/09/21 13:59 Urine Occult Blood MODERATE (NEGATIVE) H 12/09/21 13:59 Urine Nitrite NEGATIVE (NEGATIVE) 12/09/21 13:59 Urine Bilirubin NEGATIVE (NEGATIVE) 12/09/21 13:59 Urine Urobilinogen 0.2 (NORMAL) E.U./dL (NORMAL) 12/09/21 13:59 Ur Leukocyte Esterase NEGATIVE (NEGATIVE) 12/09/21 13:59 Urine RBC 11-25 /HPF (0-5) H 12/09/21 13:59 Urine WBC 6-10 /HPF (0-3) H 12/09/21 13:59 Ur Squamous Epith Cells RARE Squamous (<= Few) 12/09/21 13:59 Urine Bacteria Moderate /HPF (None Seen) H 12/09/21 13:59 Urine Casts 3-5 Granular Casts /LPF 12/09/21 13:59 Ur Microscopic Review INDICATED 12/09/21 13:59 Urine Culture Comments NOT INDICATED 12/09/21 13:59 Nasal Adenovirus (PCR) NOT DETECTED 12/09/21 13:59 Nasal B. parapertussis DNA (PCR) NOT DETECTED 12/09/21 13:59 Nasal Coronavir 229E PCR NOT DETECTED 12/09/21 13:59 Nasal Coronavir HKU1 PCR NOT DETECTED 12/09/21 13:59 Nasal Coronavir NL63 PCR NOT DETECTED 12/09/21 13:59 Nasal Coronavir OC43 PCR NOT DETECTED 12/09/21 13:59 Nasal Enterovir/Rhinovir PCR NOT DETECTED 12/09/21 13:59 Nasal Influenza B PCR NOT DETECTED 12/09/21 13:59 Nasal Influenza A PCR NOT DETECTED 12/09/21 13:59 Nasal Parainfluen 1 PCR NOT DETECTED 12/09/21 13:59 Nasal Parainfluen 2 PCR NOT DETECTED 12/09/21 13:59 Nasal Parainfluen 3 PCR NOT DETECTED 12/09/21 13:59 Nasal Parainfluen 4 PCR NOT DETECTED 12/09/21 13:59 Nasal RSV (PCR) NOT DETECTED 12/09/21 13:59 Nasal B.pertussis DNA PCR NOT DETECTED 12/09/21 13:59 Nasal C.pneumoniae (PCR) NOT DETECTED 12/09/21 13:59 [place]anda Human Metapneumo PCR NOT DETECTED 12/09/21 13:59 Nasal M.pneumoniae (PCR) NOT DETECTED 12/09/21 13:59 Nasal SARS-CoV-2 (PCR) NOT DETECTED 12/09/21 13:59 Last Dose Date Not Reportable 12/20/21 12:00 Last Dose Time Not Reportable 12/20/21 12:00 Urine Opiates Screen NEGATIVE (NEGATIVE) 12/09/21 13:59 Ur Oxycodone Screen NEGATIVE (NEGATIVE) 12/09/21 13:59 Urine Methadone Screen NEGATIVE (NEGATIVE) 12/09/21 13:59 Ur Propoxyphene Screen NEGATIVE (NEGATIVE) 12/09/21 13:59 Ur Barbiturates Screen NEGATIVE (NEGATIVE) 12/09/21 13:59 Valproic Acid 31.0 ug/mL 12/20/21 12:00 Ur Tricyclics Screen NEGATIVE (NEGATIVE) 12/09/21 13:59 Levetiracetam 20.5 ug/mL (10.0-40.0) 12/20/21 12:00 Ur Phencyclidine Scrn NEGATIVE (NEGATIVE) 12/09/21 13:59 Ur Amphetamine Screen NEGATIVE (NEGATIVE) 12/09/21 13:59 U Methamphetamines Scrn NEGATIVE (NEGATIVE) 12/09/21 13:59 U Benzodiazepines Scrn NEGATIVE (NEGATIVE) 12/09/21 13:59 Urine Cocaine Screen NEGATIVE (NEGATIVE) 12/09/21 13:59 U Cannabinoids Screen NEGATIVE (NEGATIVE) 12/09/21 13:59 - Procedures Procedures: Procedures [facility] (04/17/14) ABX Reporting Has patient been on IV antibiotics over the past 48 hours?: No
[2022-01-02] MEDS: INSULIN ASPART 300 UNIT/3 ML PEN SUBQ SCH ×4 (07:36→21:02)
[2022-01-02] MEDS: MULTIVITAMIN TABLET PO SCH (07:51)
[2022-01-02] MEDS: MAGNESIUM OXIDE 400 MG TABLET PO SCH ×2 (07:52→17:11)
[2022-01-02] MEDS: DIVALPROEX ER 250 MG TABLET PO SCH ×2 (08:09→21:01)
[2022-01-02] MEDS: TAMSULOSIN 0.4 MG CAPSULE PO SCH (08:09)
[2022-01-02] MEDS: APIXABAN 2.5 MG TABLET PO SCH ×2 (08:09→21:01)
[2022-01-02] MEDS: calcitrioL 0.25 MCG CAPSULE PO SCH (08:09)
[2022-01-02] MEDS: levETIRAcetam 250 MG TABLET PO SCH ×2 (08:09→21:03)
[2022-01-02] MEDS: diltiaZEM CD 180 MG CAPSULE PO SCH (08:09)
[2022-01-02] MEDS: ACETAMINOPHEN 325 MG TABLET PO PRN ×2 (08:09→12:09)
[2022-01-02] MEDS: FLUTICASONE NASAL SPRAY NAS SCH (08:10)
[2022-01-02] MEDS: polyethylene glycoL 3350 17 GM PACKET PO SCH (08:10)
[2022-01-02] MEDS: ENTACAPONE 200 MG TABLET PO SCH ×2 (10:24→21:01)
--- NOTE | 2022-01-02 12:28 | DISCHARGE SUMMARY ---
Discharge Summary - ALLERGIES Allergies/Adverse Reactions: Allergies Allergy/AdvReac Type Severity Reaction Status Date / Time allopurinol Allergy Unknown Verified 12/07/21 20:42 glipizide Allergy Unknown Verified 12/07/21 20:42 metformin Allergy Unknown Verified 12/07/21 20:42 - MEDICATIONS Home Medications: Ambulatory Orders Medication Instructions Recorded Confirmed Omeprazole 20 mg PO BID 10/02/13 12/10/21 Atorvastatin Calcium 40 mg PO QPM 01/24/16 12/10/21 Carbidopa/Levodopa 2 each PO QID 01/05/20 12/10/21 [Carbidopa-Levodopa 25-250 Tab] Rivaroxaban [Xarelto] 15 mg PO QDDINNER 07/23/20 12/10/21 Tamsulosin [Flomax] 0.4 mg PO DAILY #30 cap 09/30/20 12/09/21 Entacapone [Comtan] 200 mg PO BID 04/02/21 12/10/21 Multivit-Min/Folic/Vit K/Lycop 1 each PO DAILY 04/02/21 12/10/21 [One Daily Men's 50 Plus D3 Tab] calcitrioL [Rocaltrol] 0.5 mcg PO DAILY 04/02/21 12/09/21 Insulin Glargine [Lantus Solostar] 8 unit SQ HS 04/23/21 12/10/21 Senna [Senokot] 8.6 mg PO DAILY PRN 04/23/21 12/10/21 Albuterol Sulfate [Proair Hfa 2 puffs INH Q4HR PRN 11/18/21 12/10/21 Inhaler] Fluticasone [Flonase] 2 spray TAWANDA DAILY 11/18/21 12/10/21 diltiaZEM CD [Cardizem Cd] 180 mg PO DAILY 12/09/21 12/10/21 - LABS Result Diagrams: 12/27/21 08:14 12/27/21 08:14
--- NOTE | 2022-01-02 12:30 | Discharge Plan ---
Discharge Plan for SNF / [facility] - Discharge Plan And Transition Orders Allergies and Adverse Reactions: Allergies Allergy/AdvReac Type Severity Reaction Status Date / Time allopurinol Allergy Unknown Verified 12/07/21 20:42 glipizide Allergy Unknown Verified 12/07/21 20:42 metformin Allergy Unknown Verified 12/07/21 20:42 - SNF / LONG-TERM Transition Orders Medicare Certification Statement: I certify that [facility] care is medically necessary on a c ontinuing basis for any of the conditions for which she/he is receiving care during hospitalization. Notify PCP of admission and forward orders to primary provider for signature. Other Notification Orders: Call PCP immediately if patient develops dyspnea, chest pain/tightness or edema. Additional Bowel Program Orders: If no BM after 2 days, nurse may give M.O.M. 30ml PO PRN and/or ducolax Supp 1 CO and/or VEGA 250mg P.O., and/or senna 1-2 tabs PO. On day 3 nurse may give repeat above order until residents constipation is resolved. Medication Orders: PLEASE REFER TO THE DISCHARGE MEDICATION LIST.
[2022-01-02] MEDS: ATORVASTATIN 40 MG TABLET PO SCH (21:01)
[2022-01-03] MEDS: CARBIDOPA/LEVODOPA 25 MG/250 MG TABLET PO SCH ×3 (01:28→14:36)
[2022-01-03] MEDS: PANTOPRAZOLE 40 MG TABLET PO SCH ×2 (06:19→16:13)
[2022-01-03] MEDS: ACETAMINOPHEN/CODEINE 300 MG/30 MG TABLET PO PRN (06:35)
[2022-01-03] MEDS: INSULIN ASPART 300 UNIT/3 ML PEN SUBQ SCH ×2 (08:00→11:45)
[2022-01-03] MEDS: diltiaZEM CD 180 MG CAPSULE PO SCH (08:06)
[2022-01-03] MEDS: calcitrioL 0.25 MCG CAPSULE PO SCH (08:06)
[2022-01-03] MEDS: DIVALPROEX ER 250 MG TABLET PO SCH (08:06)
[2022-01-03] MEDS: APIXABAN 2.5 MG TABLET PO SCH (08:06)
[2022-01-03] MEDS: MULTIVITAMIN TABLET PO SCH (08:06)
[2022-01-03] MEDS: TAMSULOSIN 0.4 MG CAPSULE PO SCH (08:07)
[2022-01-03] MEDS: MAGNESIUM OXIDE 400 MG TABLET PO SCH ×2 (08:07→16:13)
[2022-01-03] MEDS: levETIRAcetam 250 MG TABLET PO SCH (08:07)
[2022-01-03] MEDS: ENTACAPONE 200 MG TABLET PO SCH (08:07)
[2022-01-03] MEDS: FLUTICASONE NASAL SPRAY NAS SCH (08:08)
[2022-01-03] MEDS: polyethylene glycoL 3350 17 GM PACKET PO SCH (08:08)
--- NOTE | 2022-01-03 16:11 | PROVIDER PROGRESS NOTE ---
Subjective - Prog Note Date Prog Note Date: 01/03/22 - Subjective Subjective: He felt occasional urinary incontinence this morning. Current Medications - Current Medications Current Medications: Active Medications Acetaminophen (Acetaminophen 325 Mg Tablet) 650 mg PO Q4HR PRN PRN Reason: Pain 1 to 4, or Fever Last Admin: 01/02/22 12:09 Dose: 650 mg Acetaminophen/Codeine Phosphate (Acetaminophen/Codeine 300 Mg/30 Mg Tablet) 0.5 tab PO QPM PRN PRN Reason: Severe Pain Last Admin: 01/03/22 06:35 Dose: 0.5 tab Apixaban (Apixaban 2.5 Mg Tablet) 2.5 mg PO BID [facility] Last Admin: 01/03/22 08:06 Dose: 2.5 mg Atorvastatin Calcium (Atorvastatin 40 Mg Tablet) 40 mg PO QPM [facility] Last Admin: 01/02/22 21:01 Dose: 40 mg Calcitriol (Calcitriol 0.25 Mcg Capsule) 0.5 mcg PO DAILY [facility] Last Admin: 01/03/22 08:06 Dose: 0.5 mcg Carbidopa/Levodopa (Carbidopa/Levodopa 25 Mg/250 Mg Tablet) 2 tab PO 0200,0800,1400,2000 [facility] Last Admin: 01/03/22 14:36 Dose: 2 tab Diltiazem HCl (Diltiazem Cd 180 Mg Capsule) 180 mg PO DAILY [facility] Last Admin: 01/03/22 08:06 Dose: 180 mg Divalproex Sodium (Divalproex Er 250 Mg Tablet) 500 mg PO BID [facility] Last Admin: 01/03/22 08:06 Dose: 500 mg Entacapone (Entacapone 200 Mg Tablet) 200 mg PO BID [facility] Last Admin: 01/03/22 08:07 Dose: Not Given Fluticasone Propionate (Fluticasone Nasal [place]) 1 sprays TAWANDA DAILY [facility] Last Admin: 01/03/22 08:08 Dose: 1 spr Insulin Aspart (Insulin Aspart 300 Unit/3 Ml Pen) 1 - 5 unit SUBQ 0800, 1200,1700,2100 [facility]; Protocol Last Admin: 01/03/22 11:45 Dose: 1 unit Levetiracetam (Levetiracetam 250 Mg Tablet) 250 mg PO QPM [facility] Last Admin: 01/02/22 21:03 Dose: 250 mg Levetiracetam (Levetiracetam 250 Mg Tablet) 250 mg PO DAILY [facility] Last Admin: 01/03/22 08:07 Dose: 250 mg Lidocaine (Lidocaine Patch 5%) 1 patch TOP DAILY PRN PRN Reason: PAIN Last Admin: 12/29/21 05:37 Dose: 1 patch Lorazepam (Lorazepam 2 Mg/Ml Vial) 1 mg IVP Q2H PRN PRN Reason: Seizure Last Admin: 12/10/21 08:37 Dose: 1 mg Magnesium Oxide (Magnesium Oxide 400 Mg Tablet) 400 mg PO BIDWM [facility] Last Admin: 01/03/22 08:07 Dose: 400 mg Metoprolol Tartrate (Metoprolol 5 Mg/5 Ml Vial) 5 mg IVP Q6H PRN PRN Reason: Tachycardia Multivitamins (Multivitamin Tablet) 1 tab PO DAILYWM [facility] Last Admin: 01/03/22 08:06 Dose: 1 tab Ondansetron HCl (Ondansetron 4 Mg/2 Ml Vial) 4 mg IVP Q6HR PRN PRN Reason: Nausea / Vomiting Pantoprazole Sodium (Pantoprazole 40 Mg Tablet) 40 mg PO BIDAC [facility] Last Admin: 01/03/22 06:19 Dose: 40 mg Polyethylene Glycol (Polyethylene Glycol 3350 17 Gm Packet) 17 gm PO DAILY [facility] Last Admin: 01/03/22 08:08 Dose: Not Given Senna (Senna 8.6 Mg Tablet) 8.6 mg PO DAILY PRN PRN Reason: Constipation Last Admin: 12/18/21 09:00 Dose: 8.6 mg Tamsulosin HCl (Tamsulosin 0.4 Mg Capsule) 0.4 mg PO DAILY [facility] Last Admin: 01/03/22 08:07 Dose: 0.4 mg Omeprazole 20 mg PO BID 10/02/13 Atorvastatin Calcium 40 mg PO QPM 01/24/16 Carbidopa/Levodopa [Carbidopa-Levodopa 25-250 Tab] 2 each PO QID 01/05/20 Rivaroxaban [Xarelto] 15 mg PO QDDINNER 07/23/20 Entacapone [Comtan] 200 mg PO BID 04/02/21 Multivit-Min/Folic/Vit K/Lycop [One Daily Men's 50 Plus D3 Tab] 1 each PO DAILY 04/02/21 calcitrioL [Rocaltrol] 0.5 mcg PO DAILY 04/02/21 Insulin Glargine [Lantus Solostar] 8 unit SQ HS 04/23/21 Senna [Senokot] 8.6 mg PO DAILY PRN 04/23/21 Albuterol Sulfate [Proair Hfa Inhaler] 2 puffs INH Q4HR PRN 11/18/21 Fluticasone [Flonase] 2 spray TAWANDA DAILY 11/18/21 diltiaZEM CD [Cardizem Cd] 180 mg PO DAILY 12/09/21 Objective - Vital Signs/Intake & Output Reviewed Vital Signs: Yes Intake & Output: Intake & Output 12/31/21 01/01/22 01/02/22 01/03/22 23:59 23:59 23:59 23:59 Intake Total 1110 1480 2190 1490 Output Total 1800 1050 1200 600 Balance -690 430 990 890 - Objective General Appearance: positive: No acute distress, Alert Eyes Bilateral: positive: Conjunctivae nml ENT: positive: ENT inspection nml Respiratory: positive: No respiratory distress Extremities: positive: No pedal edema - Lab Results Fish Bones: 12/27/21 08:14 12/27/21 08:14 Other Labs: Lab Results x24hrs 01/03/22 01/03/22 01/02/22 Range/Units 11:12 07:28 20:31 POC Whole Bld Glucose 146 H 142 H 136 H (70 - 100) mg/dL 01/02/22 Range/Units 16:23 POC Whole Bld Glucose 146 H (70 - 100) mg/dL Assessment/Plan - Problem List (1) Seizure Impression: This has been stable on the current dose of Keppra 250 mg BID. We also added Depakote which he has tolerated well. This will be continued on discharge. He is pending placement. (2) CKD (chronic kidney disease) stage 4, GFR 15-29 ml/min Impression: Recheck labs over little week ago and his creatinine was stable at around 4.3 then. He has a fistula in place. We will look to check labs again over next few days to ensure renal function is stable. He is not yet on hemodialysis. (3) Atrial fibrillation Impression: Controlled on diltiazem. We are continuing Eliquis for anticoagulation. Qualifiers: Atrial fibrillation type: longstanding persistent Qualified Code(s): I48.11 - Longstanding persistent atrial fibrillation (4) Parkinson disease Impression: Continue Sinemet. We are working on disposition for a SNF. (5) CITIZEN [place] (hard of hearing) Impression: We continue to communicate with writing as he is quite hard of hearing. (6) Type 2 diabetes mellitus Impression: His blood glucose has been well controlled on a carb controlled diet with sliding scale. His A1c was 6.4%.
[2022-01-03] MEDS ORDERED: ATORVASTATIN 40 MG TABLET ONE (19:05)
[2022-01-03] MEDS ORDERED: APIXABAN 2.5 MG TABLET ONE (19:05)
[2022-01-03] MEDS ORDERED: ACETAMINOPHEN 325 MG TABLET PO ONE (19:05)
[2022-01-03] MEDS ORDERED: levETIRAcetam 250 MG TABLET ONE (19:06)
[2022-01-03] MEDS ORDERED: CARBIDOPA/LEVODOPA 25 MG/250 MG TABLET PO ONE (19:06)
[2022-01-03] MEDS ORDERED: DIVALPROEX ER 250 MG TABLET PO ONE (19:06)
[2022-01-04] MEDS ORDERED: ACETAMINOPHEN 325 MG TABLET PO ONE ×2 (03:44→14:32)
[2022-01-04] MEDS ORDERED: CARBIDOPA/LEVODOPA 25 MG/250 MG TABLET PO ONE ×4 (03:48→21:04)
[2022-01-04] MEDS ORDERED: PANTOPRAZOLE 40 MG TABLET ONE ×2 (05:28→16:50)
[2022-01-04] MEDS ORDERED: LOSARTAN 50 MG TABLET ONE (09:00)
[2022-01-04] MEDS ORDERED: CETIRIZINE 10 MG TABLET ONE (09:00)
[2022-01-04] MEDS ORDERED: SACCHAROMYCES BOULARDII 250 MG CAPSULE ONE (09:01)
[2022-01-04] MEDS ORDERED: MULTIVITAMIN TABLET PO ONE (09:53)
[2022-01-04] MEDS ORDERED: calcitrioL 0.25 MCG CAPSULE PO ONE ×2 (09:53→10:15)
[2022-01-04] MEDS ORDERED: MAGNESIUM OXIDE 400 MG TABLET ONE ×2 (09:53→16:50)
[2022-01-04] MEDS ORDERED: TAMSULOSIN 0.4 MG CAPSULE ONE (09:54)
[2022-01-04] MEDS ORDERED: levETIRAcetam 250 MG TABLET ONE ×2 (09:54→21:04)
[2022-01-04] MEDS ORDERED: APIXABAN 2.5 MG TABLET ONE ×2 (09:54→21:03)
[2022-01-04] MEDS ORDERED: polyethylene glycoL 3350 17 GM PACKET ONE (09:55)
[2022-01-04] MEDS ORDERED: DIVALPROEX ER 250 MG TABLET PO ONE ×2 (09:55→21:04)
[2022-01-04] MEDS ORDERED: diltiaZEM CD 180 MG CAPSULE PO ONE (11:11)
[2022-01-04] MEDS: APIXABAN 2.5 MG TABLET PO SCH ×3 (18:41→20:57)
[2022-01-04] MEDS: INSULIN ASPART 300 UNIT/3 ML PEN SUBQ SCH ×5 (18:41→20:56)
[2022-01-04] MEDS: CARBIDOPA/LEVODOPA 25 MG/250 MG TABLET PO SCH ×4 (18:41→20:57)
[2022-01-04] MEDS: ENTACAPONE 200 MG TABLET PO SCH ×3 (18:42→20:57)
[2022-01-04] MEDS: ATORVASTATIN 40 MG TABLET PO SCH ×2 (18:42→20:57)
[2022-01-04] MEDS: levETIRAcetam 250 MG TABLET PO SCH ×3 (18:42→20:57)
[2022-01-04] MEDS: DIVALPROEX ER 250 MG TABLET PO SCH ×3 (18:42→20:56)
[2022-01-04] MEDS: PANTOPRAZOLE 40 MG TABLET PO SCH ×2 (18:43→18:45)
[2022-01-04] MEDS: MAGNESIUM OXIDE 400 MG TABLET PO SCH ×2 (18:43→18:45)
[2022-01-04] MEDS: calcitrioL 0.25 MCG CAPSULE PO SCH (18:43)
[2022-01-04] MEDS: MULTIVITAMIN TABLET PO SCH (18:43)
[2022-01-04] MEDS: FLUTICASONE NASAL SPRAY NAS SCH (18:44)
[2022-01-04] MEDS: diltiaZEM CD 180 MG CAPSULE PO SCH (18:44)
[2022-01-04] MEDS: polyethylene glycoL 3350 17 GM PACKET PO SCH (18:44)
[2022-01-04] MEDS: TAMSULOSIN 0.4 MG CAPSULE PO SCH (18:44)
[2022-01-04] MEDS ORDERED: ATORVASTATIN 40 MG TABLET ONE (21:03)
--- NOTE | 2022-01-04 23:46 | HISTORY & PHYSICAL EXAMINATION ---
History and Physical - History and Physical No new events reported by hospitalist or by nursing. Mr. Davidson continues to be in the hospital awaiting placement. Glucoses in the 150's to 170's today. Not able to take any of his medicines. Awaiting placement. No new seizures. Temperature 36.4. Heart rate 61. Blood pressure 124/68. Respirations 18. 100% on room air. He is a two-person assist to get out of bed but needs minimal assist to use the bedside urinal. Active Medications Acetaminophen (Acetaminophen 325 Mg Tablet) 650 mg PO Q4HR PRN PRN Reason: Pain 1 to 4, or Fever Last Admin: 01/02/22 12:09 Dose: 650 mg Acetaminophen/Codeine Phosphate (Acetaminophen/Codeine 300 Mg/30 Mg Tablet) 0.5 tab PO QPM PRN PRN Reason: Severe Pain Last Admin: 01/03/22 06:35 Dose: 0.5 tab Apixaban (Apixaban 2.5 Mg Tablet) 2.5 mg PO BID [facility] Last Admin: 01/04/22 20:57 Dose: 2.5 mg Atorvastatin Calcium (Atorvastatin 40 Mg Tablet) 40 mg PO QPM [facility] Last Admin: 01/04/22 20:57 Dose: 40 mg Calcitriol (Calcitriol 0.25 Mcg Capsule) 0.5 mcg PO DAILY [facility] Last Admin: 01/04/22 18:43 Dose: Not Given Carbidopa/Levodopa (Carbidopa/Levodopa 25 Mg/250 Mg Tablet) 2 tab PO 0200,0800,1400,2000 [facility] Last Admin: 01/04/22 20:57 Dose: 2 tab Diltiazem HCl (Diltiazem Cd 180 Mg Capsule) 180 mg PO DAILY [facility] Last Admin: 01/04/22 18:44 Dose: Not Given Divalproex Sodium (Divalproex Er 250 Mg Tablet) 500 mg PO BID [facility] Last Admin: 01/04/22 20:56 Dose: 500 mg Entacapone (Entacapone 200 Mg Tablet) 200 mg PO BID [facility] Last Admin: 01/04/22 20:57 Dose: Not Given Fluticasone Propionate (Fluticasone Nasal [place]) 1 sprays TAWANDA DAILY [facility] Last Admin: 01/04/22 18:44 Dose: Not Given Insulin Aspart (Insulin Aspart 300 Unit/3 Ml Pen) 1 - 5 unit SUBQ 0800,1200,1700,2100 [facility]; Protocol Last Admin: 01/04/22 20:56 Dose: 1 unit Levetiracetam (Levetiracetam 250 Mg Tablet) 250 mg PO QPM [facility] Last Admin: 01/04/22 20:57 Dose: 250 mg Levetiracetam (Levetiracetam 250 Mg Tablet) 250 mg PO DAILY [facility] Last Admin: 01/04/22 18:44 Dose: Not Given Lidocaine (Lidocaine Patch 5%) 1 patch TOP DAILY PRN PRN Reason: PAIN Last Admin: 12/29/21 05:37 Dose: 1 patch Lorazepam (Lorazepam 2 Mg/Ml Vial) 1 mg IVP Q2H PRN PRN Reason: Seizure Last Admin: 12/10/21 08:37 Dose: 1 mg Magnesium Oxide (Magnesium Oxide 400 Mg Tablet) 400 mg PO BIDWM [facility] Last Admin: 01/04/22 18:45 Dose: Not Given Multivitamins (Multivitamin Tablet) 1 tab PO DAILYWM [facility] Last Admin: 01/04/22 18:43 Dose: Not Given Ondansetron HCl (Ondansetron 4 Mg/2 Ml Vial) 4 mg IVP Q6HR PRN PRN Reason: Nausea / Vomiting Pantoprazole Sodium (Pantoprazole 40 Mg Tablet) 40 mg PO BIDAC [facility] Last Admin: 01/04/22 18:45 Dose: Not Given Polyethylene Glycol (Polyethylene Glycol 3350 17 Gm Packet) 17 gm PO DAILY [facility] Last Admin: 01/04/22 18:44 Dose: Not Given Senna (Senna 8.6 Mg Tablet) 8.6 mg PO DAILY PRN PRN Reason: Constipation Last Admin: 12/18/21 09:00 Dose: 8.6 mg Tamsulosin HCl (Tamsulosin 0.4 Mg Capsule) 0.4 mg PO DAILY [facility] Last Admin: 01/04/22 18:44 Dose: Not Given Omeprazole 20 mg PO BID 10/02/13 Atorvastatin Calcium 40 mg PO QPM 01/24/16 Carbidopa/Levodopa [Carbidopa-Levodopa 25-250 Tab] 2 each PO QID 01/05/20 Rivaroxaban [Xarelto] 15 mg PO QDDINNER 07/23/20 Entacapone [Comtan] 200 mg PO BID 04/02/21 Multivit-Min/Folic/Vit K/Lycop [One Daily Men's 50 Plus D3 Tab] 1 each PO DAILY 04/02/21 calcitrioL [Rocaltrol] 0.5 mcg PO DAILY 04/02/21 Insulin Glargine [Lantus Solostar] 8 unit SQ HS 04/23/21 Senna [Senokot] 8.6 mg PO DAILY PRN 04/23/21 Albuterol Sulfate [Proair Hfa Inhaler] 2 puffs INH Q4HR PRN 11/18/21 Fluticasone [Flonase] 2 spray TAWANDA DAILY 11/18/21 diltiaZEM CD [Cardizem Cd] 180 mg PO DAILY 12/09/21 Profoundly deaf elderly gentleman. Needs everything written down. Awake, alert, definitely opinionated about his food. But not oriented to person, time or place. He does not know why he is here. Neck is supple. Lungs are clear. Regular rate and rhythm. Abdomen is soft, nontender, with normal bowel sounds. Neurologically he is a debilitated elderly gentleman who needs care, standby assist but no focal deficits. Deaf. Wearing glasses. Assessment/plan 1. Seizure disorder. Several witnessed on admission. Put on Keppra and still had another seizure and Depakote added to Keppra. Since that time he has not had any seizures. Continue same. 2. Frequent falls at home. He has history of Parkinson's, dementia, confusion is waxing and waning, poor vision, deafness. To be placed in [facility] facility. 3. Chronic kidney disease stable 4. Parkinson's disease on his home meds. Plan is discharged to staff then long-term care facility since he is not able to live alone. 5. Type 2 diabetes mellitus. Creatinine has been elevated as such metformin held. Patient is was on Lantus and now only only on sliding scale due to hypoglycemia. 7. Chronic atrial fibrillation that is rate controlled and on anti coagulation 8. Profound deafness 9. Hypertension controlled 10. Chronic low back pain that is controlled
[2022-01-05] MEDS ORDERED: CARBIDOPA/LEVODOPA 25 MG/250 MG TABLET PO ONE ×3 (02:04→14:21)
[2022-01-05] MEDS: CARBIDOPA/LEVODOPA 25 MG/250 MG TABLET PO SCH ×4 (02:16→20:58)
[2022-01-05] MEDS ORDERED: PANTOPRAZOLE 40 MG TABLET ONE ×2 (06:37→17:19)
[2022-01-05] MEDS: PANTOPRAZOLE 40 MG TABLET PO SCH ×2 (07:00→17:13)
[2022-01-05] MEDS: INSULIN ASPART 300 UNIT/3 ML PEN SUBQ SCH ×4 (08:49→20:57)
[2022-01-05] MEDS: MAGNESIUM OXIDE 400 MG TABLET PO SCH ×2 (08:49→17:12)
[2022-01-05] MEDS: calcitrioL 0.25 MCG CAPSULE PO SCH (08:50)
[2022-01-05] MEDS: MULTIVITAMIN TABLET PO SCH (08:50)
[2022-01-05] MEDS: diltiaZEM CD 180 MG CAPSULE PO SCH (08:50)
[2022-01-05] MEDS: APIXABAN 2.5 MG TABLET PO SCH ×2 (08:50→20:58)
[2022-01-05] MEDS: DIVALPROEX ER 250 MG TABLET PO SCH ×2 (08:51→20:58)
[2022-01-05] MEDS: TAMSULOSIN 0.4 MG CAPSULE PO SCH (08:52)
[2022-01-05] MEDS: levETIRAcetam 250 MG TABLET PO SCH ×2 (08:52→20:58)
[2022-01-05] MEDS: polyethylene glycoL 3350 17 GM PACKET PO SCH (08:52)
[2022-01-05] MEDS: ENTACAPONE 200 MG TABLET PO SCH ×2 (08:52→20:58)
[2022-01-05] MEDS: FLUTICASONE NASAL SPRAY NAS SCH (08:53)
[2022-01-05] MEDS ORDERED: diltiaZEM CD 180 MG CAPSULE PO ONE (08:54)
[2022-01-05] MEDS ORDERED: APIXABAN 2.5 MG TABLET ONE (08:54)
[2022-01-05] MEDS ORDERED: MULTIVITAMIN TABLET PO ONE (08:54)
[2022-01-05] MEDS ORDERED: MAGNESIUM OXIDE 400 MG TABLET ONE ×2 (08:54→17:19)
[2022-01-05] MEDS ORDERED: calcitrioL 0.25 MCG CAPSULE PO ONE (08:54)
[2022-01-05] MEDS ORDERED: polyethylene glycoL 3350 17 GM PACKET ONE (08:55)
[2022-01-05] MEDS ORDERED: levETIRAcetam 250 MG TABLET ONE (08:55)
[2022-01-05] MEDS ORDERED: TAMSULOSIN 0.4 MG CAPSULE ONE (08:55)
[2022-01-05] MEDS ORDERED: DIVALPROEX ER 250 MG TABLET PO ONE (08:55)
[2022-01-05] MEDS: ACETAMINOPHEN 325 MG TABLET PO PRN (14:13)
[2022-01-05] MEDS ORDERED: ACETAMINOPHEN 325 MG TABLET PO ONE (14:24)
[2022-01-05] MEDS: ATORVASTATIN 40 MG TABLET PO SCH (20:58)
[2022-01-06] MEDS: CARBIDOPA/LEVODOPA 25 MG/250 MG TABLET PO SCH ×4 (02:41→20:42)
[2022-01-06 05:26] LABS: CALCIUM 9.3 mg/dL (8.5-10.3); CREATININE 4.8 mg/dL (0.6-1.2); POTASSIUM 4.1 mmol/L (3.5-5.0)
[2022-01-06] MEDS: PANTOPRAZOLE 40 MG TABLET PO SCH ×2 (05:49→16:00)
--- NOTE | 2022-01-06 07:26 | PROVIDER PROGRESS NOTE ---
Progress Note No new events for this gentleman. We are going to be checking labs because of his history of renal failure. That will be tomorrow morning. Otherwise no new change in vital signs, no new events.This note is strictly for documentation purposes. He has been medically stable for days and we are awaiting placement Temperature is 36.4. Heart rate 84. Blood pressure 144/79. Respirations 16. 99% on room air. He is a disoriented, profoundly deaf elderly gentleman. Completely dependent on the nurses for activities of daily living. Lungs are clear and he has no respiratory distress. Regular rate and rhythm. The abdomen is benign. Assessment/plan 1. Seizure disorder. Several witnessed on admission. Put on Keppra and still had another seizure and Depakote added to Keppra. Since that time he has not had any seizures. Continue same. 2. Frequent falls at home. He has history of Parkinson's, dementia, confusion is waxing and waning, poor vision, deafness. [facility]. 3. Chronic kidney disease stable. check BMP in am. 4. Parkinson's disease on his home meds. Plan is discharged to staff then long-term care facility since he is not able to live alone. 5. Type 2 diabetes mellitus. Creatinine has been elevated as such metformin held. Patient is was on Lantus and now only only on sliding scale due to hypoglycemia. 7. Chronic atrial fibrillation that is rate controlled and on anti coagulation 8. Profound deafness 9. Hypertension controlled 10. Chronic low back pain that is controlled
[2022-01-06] MEDS ORDERED: LACTATED RINGERS 1,000 ML IV ONE (07:33)
[2022-01-06] MEDS: INSULIN ASPART 300 UNIT/3 ML PEN SUBQ SCH ×4 (08:15→20:42)
[2022-01-06] MEDS: polyethylene glycoL 3350 17 GM PACKET PO SCH (08:30)
[2022-01-06] MEDS: FLUTICASONE NASAL SPRAY NAS SCH (08:30)
--- NOTE | 2022-01-06 08:48 | PROVIDER PROGRESS NOTE ---
Subjective - Prog Note Date Prog Note Date: 01/06/22 - Subjective Subjective: He has been progressing with physical therapy on a daily basis. He has chronic back pain which has not always been controlled here. Current Medications - Current Medications Current Medications: Active Medications Acetaminophen (Acetaminophen 325 Mg Tablet) 650 mg PO Q4HR PRN PRN Reason: Pain 1 to 4, or Fever Last Admin: 01/05/22 14:13 Dose: 650 mg Acetaminophen/Codeine Phosphate (Acetaminophen/Codeine 300 Mg/30 Mg Tablet) 0.5 tab PO QPM PRN PRN Reason: Severe Pain Last Admin: 01/03/22 06:35 Dose: 0.5 tab Apixaban (Apixaban 2.5 Mg Tablet) 2.5 mg PO BID [facility] Last Admin: 01/05/22 20:58 Dose: 2.5 mg Atorvastatin Calcium (Atorvastatin 40 Mg Tablet) 40 mg PO QPM [facility] Last Admin: 01/05/22 20:58 Dose: 40 mg Calcitriol (Calcitriol 0.25 Mcg Capsule) 0.5 mcg PO DAILY [facility] Last Admin: 01/05/22 08:50 Dose: 0.5 mcg Carbidopa/Levodopa (Carbidopa/Levodopa 25 Mg/250 Mg Tablet) 2 tab PO 0200,0800,1400,2000 [facility] Last Admin: 01/06/22 02:41 Dose: 2 tab Diltiazem HCl (Diltiazem Cd 180 Mg Capsule) 180 mg PO DAILY [facility] Last Admin: 01/05/22 08:50 Dose: 180 mg Divalproex Sodium (Divalproex Er 250 Mg Tablet) 500 mg PO BID [facility] Last Admin: 01/05/22 20:58 Dose: 500 mg Entacapone (Entacapone 200 Mg Tablet) 200 mg PO BID [facility] Last Admin: 01/05/22 20:58 Dose: Not Given Fluticasone Propionate (Fluticasone Nasal [place]) 1 sprays TAWANDA DAILY [facility] Last Admin: 01/05/22 08:53 Dose: 1 spr Lactated Ringer's (Lr) 1,000 mls @ 500 mls/hr IV ONCE ONE Stop: 01/06/22 09:32 Insulin Aspart (Insulin Aspart 300 Unit/3 Ml Pen) 1 - 5 unit SUBQ 0800,1200,1700,2100 [facility]; Protocol Last Admin: 01/05/22 20:57 Dose: 1 unit Levetiracetam (Levetiracetam 250 Mg Tablet) 250 mg PO QPM [facility] Last Admin: 01/05/22 20:58 Dose: 250 mg Levetiracetam (Levetiracetam 250 Mg Tablet) 250 mg PO DAILY [facility] Last Admin: 01/05/22 08:52 Dose: 250 mg Lidocaine (Lidocaine Patch 5%) 1 patch TOP DAILY PRN PRN Reason: PAIN Last Admin: 12/29/21 05:37 Dose: 1 patch Lorazepam (Lorazepam 2 Mg/Ml Vial) 1 mg IVP Q2H PRN PRN Reason: Seizure Last Admin: 12/10/21 08:37 Dose: 1 mg Magnesium Oxide (Magnesium Oxide 400 Mg Tablet) 400 mg PO BIDWM [facility] Last Admin: 01/05/22 17:12 Dose: 400 mg Multivitamins (Multivitamin Tablet) 1 tab PO DAILYWM [facility] Last Admin: 01/05/22 08:50 Dose: 1 tab Ondansetron HCl (Ondansetron 4 Mg/2 Ml Vial) 4 mg IVP Q6HR PRN PRN Reason: Nausea / Vomiting Pantoprazole Sodium (Pantoprazole 40 Mg Tablet) 40 mg PO BIDAC [facility] Last Admin: 01/06/22 05:49 Dose: 40 mg Polyethylene Glycol (Polyethylene Glycol 3350 17 Gm Packet) 17 gm PO DAILY [facility] Last Admin: 01/05/22 08:52 Dose: 17 gm Senna (Senna 8.6 Mg Tablet) 8.6 mg PO DAILY PRN PRN Reason: Constipation Last Admin: 12/18/21 09:00 Dose: 8.6 mg Tamsulosin HCl (Tamsulosin 0.4 Mg Capsule) 0.4 mg PO DAILY [facility] Last Admin: 01/05/22 08:52 Dose: 0.4 mg Omeprazole 20 mg PO BID 10/02/13 Atorvastatin Calcium 40 mg PO QPM 01/24/16 Carbidopa/Levodopa [Carbidopa-Levodopa 25-250 Tab] 2 each PO QID 01/05/20 Rivaroxaban [Xarelto] 15 mg PO QDDINNER 07/23/20 Entacapone [Comtan] 200 mg PO BID 04/02/21 Multivit-Min/Folic/Vit K/Lycop [One Daily Men's 50 Plus D3 Tab] 1 each PO DAILY 04/02/21 calcitrioL [Rocaltrol] 0.5 mcg PO DAILY 04/02/21 Insulin Glargine [Lantus Solostar] 8 unit SQ HS 04/23/21 Senna [Senokot] 8.6 mg PO DAILY PRN 04/23/21 Albuterol Sulfate [Proair Hfa Inhaler] 2 puffs INH Q4HR PRN 11/18/21 Fluticasone [Flonase] 2 spray TAWANDA DAILY 11/18/21 diltiaZEM CD [Cardizem Cd] 180 mg PO DAILY 12/09/21 Objective - Vital Signs/Intake & Output Reviewed Vital Signs: Yes Vital Signs: Vital Signs x48h Temp Pulse Resp BP Pulse Ox 01/06/22 07:31 36.7 C 74 16 120/83 H 98 Intake & Output: Intake & Output 01/03/22 01/04/22 01/05/22 01/06/22 23:59 23:59 23:59 23:59 Intake Total 9383 530 6736 Output Total 600 600 650 375 Balance 133 80 7480 -375 - Objective General Appearance: positive: No acute distress, Alert Eyes Bilateral: positive: Conjunctivae nml ENT: positive: No signs of dehydration. negative: Dry mucous membranes Respiratory: positive: No respiratory distress Back: positive: Nml inspection, Other (No thoracic or lumbar spine tenderness) Skin: positive: Warm, Dry Extremities: positive: No pedal edema - Lab Results Fish Bones: 12/27/21 08:14 01/06/22 04:54 Other Labs: Lab Results x24hrs 01/06/22 01/06/22 01/05/22 Range/Units 07:19 04:54 20:39 Sodium 135 (135-145) mmol/L Potassium 4.1 (3.5-5.0) mmol/L Chloride 103 (101-111) mmol/L Carbon Dioxide 24 (21-32) mmol/L Anion Gap 8.0 (6-13) BUN 74 H (6-20) mg/dL Creatinine 4.8 H (0.6-1.2) mg/dL Estimated GFR (MDRD) 12 L (>89) Glucose 131 H (70-100) mg/dL POC Whole Bld Glucose 124 H 145 H (70 - 100) mg/dL Calcium 9.3 (8.5-10.3) mg/dL 01/05/22 01/05/22 Range/Units 16:32 11:21 Sodium (135-145) mmol/L Potassium (3.5-5.0) mmol/L Chloride (101-111) mmol/L Carbon Dioxide (21-32) mmol/L Anion Gap (6-13) BUN (6-20) mg/dL Creatinine (0.6-1.2) mg/dL Estimated GFR (MDRD) (>89) Glucose (70-100) mg/dL POC Whole Bld Glucose 138 H 166 H (70 - 100) mg/dL Calcium (8.5-10.3) mg/dL Assessment/Plan - Problem List (1) Seizure Impression: This has been stable on the current dose of Keppra 250 mg BID. We also added Depakote which he has tolerated well. This will be continued on discharge. He is pending placement. (2) CKD (chronic kidney disease) stage 4, GFR 15-29 ml/min Impression: We will check labs today given he had not had labs in over a week. His creatinine is a little elevated compared to baseline at 4.7. We will give him a liter of LR over 2 hours as he may be slightly volume depleted. He already has a fistula in place. We will continue to monitor for the time being but he will need outpatient follow-up with his circuits engineer and if his disposition is delayed significantly, then telemedicine can be considered. (3) Atrial fibrillation Impression: Controlled on diltiazem. We are continuing Eliquis for anticoagulation. Qualifiers: Atrial fibrillation type: longstanding persistent Qualified Code(s): I48.11 - Longstanding persistent atrial fibrillation (4) Parkinson disease Impression: Continue Sinemet. We are working on disposition for a SNF. (5) [place] (hard of hearing) Impression: We continue to communicate with writing as he is quite hard of hearing. (6) Type 2 diabetes mellitus Impression: His blood glucose has been well controlled on a carb controlled diet with sliding scale. His A1c was 6.4%.
[2022-01-06] MEDS: SODIUM CHLORIDE FLUSH 0.9% 10 ML SYRINGE IVP PRN ×2 (09:00→09:30)
[2022-01-06] MEDS: MULTIVITAMIN TABLET PO SCH (09:18)
[2022-01-06] MEDS: levETIRAcetam 250 MG TABLET PO SCH ×2 (09:18→20:42)
[2022-01-06] MEDS: diltiaZEM CD 180 MG CAPSULE PO SCH (09:18)
[2022-01-06] MEDS: DIVALPROEX ER 250 MG TABLET PO SCH ×2 (09:19→20:41)
[2022-01-06] MEDS: calcitrioL 0.25 MCG CAPSULE PO SCH (09:19)
[2022-01-06] MEDS: TAMSULOSIN 0.4 MG CAPSULE PO SCH (09:19)
[2022-01-06] MEDS: MAGNESIUM OXIDE 400 MG TABLET PO SCH ×2 (09:19→16:58)
[2022-01-06] MEDS: APIXABAN 2.5 MG TABLET PO SCH ×2 (09:19→20:42)
[2022-01-06] MEDS: ACETAMINOPHEN 325 MG TABLET PO PRN ×2 (09:20→16:58)
[2022-01-06] MEDS: ENTACAPONE 200 MG TABLET PO SCH ×2 (11:00→20:42)
[2022-01-06] MEDS: SODIUM CHLORIDE FLUSH 0.9% 10 ML SYRINGE IVP SCH (16:58)
[2022-01-06] MEDS: LIDOCAINE PATCH 5% TOP PRN (18:12)
[2022-01-06] MEDS: ACETAMINOPHEN/CODEINE 300 MG/30 MG TABLET PO PRN (18:24)
[2022-01-06] MEDS: ATORVASTATIN 40 MG TABLET PO SCH (20:42)
[2022-01-07] MEDS: CARBIDOPA/LEVODOPA 25 MG/250 MG TABLET PO SCH ×4 (01:16→20:47)
[2022-01-07] MEDS: SODIUM CHLORIDE FLUSH 0.9% 10 ML SYRINGE IVP SCH ×3 (01:17→16:06)
[2022-01-07] MEDS: ACETAMINOPHEN/CODEINE 300 MG/30 MG TABLET PO PRN (02:37)
[2022-01-07 05:36] LABS: CALCIUM 9.2 mg/dL (8.5-10.3); CREATININE 4.5 mg/dL (0.6-1.2); POTASSIUM 3.9 mmol/L (3.5-5.0)
[2022-01-07] MEDS: PANTOPRAZOLE 40 MG TABLET PO SCH ×2 (06:49→16:05)
[2022-01-07] MEDS: INSULIN ASPART 300 UNIT/3 ML PEN SUBQ SCH ×4 (07:26→20:48)
[2022-01-07] MEDS: DIVALPROEX ER 250 MG TABLET PO SCH ×2 (08:45→20:48)
[2022-01-07] MEDS: MULTIVITAMIN TABLET PO SCH (08:46)
[2022-01-07] MEDS: MAGNESIUM OXIDE 400 MG TABLET PO SCH ×2 (08:46→17:18)
[2022-01-07] MEDS: diltiaZEM CD 180 MG CAPSULE PO SCH (08:46)
[2022-01-07] MEDS: calcitrioL 0.25 MCG CAPSULE PO SCH (08:46)
[2022-01-07] MEDS: levETIRAcetam 250 MG TABLET PO SCH ×2 (08:46→20:48)
[2022-01-07] MEDS: TAMSULOSIN 0.4 MG CAPSULE PO SCH (08:46)
[2022-01-07] MEDS: APIXABAN 2.5 MG TABLET PO SCH ×2 (08:46→20:48)
[2022-01-07] MEDS: ENTACAPONE 200 MG TABLET PO SCH ×2 (08:47→20:48)
[2022-01-07] MEDS: polyethylene glycoL 3350 17 GM PACKET PO SCH (08:47)
[2022-01-07] MEDS: FLUTICASONE NASAL SPRAY NAS SCH (08:47)
[2022-01-07] MEDS: ACETAMINOPHEN 325 MG TABLET PO PRN (10:31)
--- NOTE | 2022-01-07 16:11 | PROVIDER PROGRESS NOTE ---
Subjective - Prog Note Date Prog Note Date: 01/07/22 - Subjective Subjective: He feels good. Still has occasional lower back pain. Current Medications - Current Medications Current Medications: Active Medications Acetaminophen (Acetaminophen 325 Mg Tablet) 650 mg PO Q4HR PRN PRN Reason: Pain 1 to 4, or Fever Last Admin: 01/07/22 10:31 Dose: 650 mg Acetaminophen/Codeine Phosphate (Acetaminophen/Codeine 300 Mg/30 Mg Tablet) 0.5 tab PO BID PRN PRN Reason: Severe Pain Last Admin: 01/07/22 02:37 Dose: 0.5 tab Apixaban (Apixaban 2.5 Mg Tablet) 2.5 mg PO BID [facility] Last Admin: 01/07/22 08:46 Dose: 2.5 mg Atorvastatin Calcium (Atorvastatin 40 Mg Tablet) 40 mg PO QPM [facility] Last Admin: 01/06/22 20:42 Dose: 40 mg Calcitriol (Calcitriol 0.25 Mcg Capsule) 0.5 mcg PO DAILY [facility] Last Admin: 01/07/22 08:46 Dose: 0.5 mcg Carbidopa/Levodopa (Carbidopa/Levodopa 25 Mg/250 Mg Tablet) 2 tab PO 0200,0800,1400,2000 [facility] Last Admin: 01/07/22 14:00 Dose: 2 tab Diltiazem HCl (Diltiazem Cd 180 Mg Capsule) 180 mg PO DAILY [facility] Last Admin: 01/07/22 08:46 Dose: 180 mg Divalproex Sodium (Divalproex Er 250 Mg Tablet) 500 mg PO BID [facility] Last Admin: 01/07/22 08:45 Dose: 500 mg Entacapone (Entacapone 200 Mg Tablet) 200 mg PO BID [facility] Last Admin: 01/07/22 08:47 Dose: Not Given Fluticasone Propionate (Fluticasone Nasal [place]) 1 sprays TAWANDA DAILY [facility] Last Admin: 01/07/22 08:47 Dose: 1 spr Insulin Aspart (Insulin Aspart 300 Unit/3 Ml Pen) 1 - 5 unit SUBQ 0800, 1200,1700,2100 [facility]; Protocol Last Admin: 01/07/22 11:49 Dose: 2 unit Levetiracetam (Levetiracetam 250 Mg Tablet) 250 mg PO QPM [facility] Last Admin: 01/06/22 20:42 Dose: 250 mg Levetiracetam (Levetiracetam 250 Mg Tablet) 250 mg PO DAILY [facility] Last Admin: 01/07/22 08:46 Dose: 250 mg Lidocaine (Lidocaine Patch 5%) 1 patch TOP DAILY PRN PRN Reason: PAIN Last Admin: 01/06/22 18:12 Dose: 1 patch Lorazepam (Lorazepam 2 Mg/Ml Vial) 1 mg IVP Q2H PRN PRN Reason: Seizure Last Admin: 12/10/21 08:37 Dose: 1 mg Magnesium Oxide (Magnesium Oxide 400 Mg Tablet) 400 mg PO BIDWM [facility] Last Admin: 01/07/22 08:46 Dose: 400 mg Multivitamins (Multivitamin Tablet) 1 tab PO DAILYWM [facility] Last Admin: 01/07/22 08:46 Dose: 1 tab Ondansetron HCl (Ondansetron 4 Mg/2 Ml Vial) 4 mg IVP Q6HR PRN PRN Reason: Nausea / Vomiting Pantoprazole Sodium (Pantoprazole 40 Mg Tablet) 40 mg PO BIDAC [facility] Last Admin: 01/07/22 16:05 Dose: 40 mg Polyethylene Glycol (Polyethylene Glycol 3350 17 Gm Packet) 17 gm PO DAILY [facility] Last Admin: 01/07/22 08:47 Dose: Not Given Senna (Senna 8.6 Mg Tablet) 8.6 mg PO DAILY PRN PRN Reason: Constipation Last Admin: 12/18/21 09:00 Dose: 8.6 mg Sodium Chloride (Sodium Chloride Flush 0.9% 10 Ml Syringe) 10 ml IVP PRN PRN PRN Reason: NEEDED PER PROVIDER ORDERS Last Admin: 01/06/22 09:30 Dose: 10 ml Sodium Chloride (Sodium Chloride Flush 0.9% 10 Ml Syringe) 10 ml IVP 0100,0900,1700 [facility] Last Admin: 01/07/22 16:06 Dose: 10 ml Tamsulosin HCl (Tamsulosin 0.4 Mg Capsule) 0.4 mg PO DAILY [facility] Last Admin: 01/07/22 08:46 Dose: 0.4 mg Omeprazole 20 mg PO BID 10/02/13 Atorvastatin Calcium 40 mg PO QPM 01/24/16 Carbidopa/Levodopa [Carbidopa-Levodopa 25-250 Tab] 2 each PO QID 01/05/20 Rivaroxaban [Xarelto] 15 mg PO QDDINNER 07/23/20 Entacapone [Comtan] 200 mg PO BID 04/02/21 Multivit-Min/Folic/Vit K/Lycop [One Daily Men's 50 Plus D3 Tab] 1 each PO DAILY 04/02/21 calcitrioL [Rocaltrol] 0.5 mcg PO DAILY 04/02/21 Insulin Glargine [Lantus Solostar] 8 unit SQ HS 04/23/21 Senna [Senokot] 8.6 mg PO DAILY PRN 04/23/21 Albuterol Sulfate [Proair Hfa Inhaler] 2 puffs INH Q4HR PRN 11/18/21 Fluticasone [Flonase] 2 spray TAWANDA DAILY 11/18/21 diltiaZEM CD [Cardizem Cd] 180 mg PO DAILY 12/09/21 Objective - Vital Signs/Intake & Output Reviewed Vital Signs: Yes Intake & Output: Intake & Output 01/04/22 01/05/22 01/06/22 01/07/22 23:59 23:59 23:59 23:59 Intake Total 618 2398 2580 850 Output Total 600 613 400 4409 Balance 18 1748 2004 -175 - Objective General Appearance: positive: No acute distress Eyes Bilateral: positive: Normal inspection ENT: positive: ENT inspection nml Respiratory: positive: No respiratory distress Extremities: positive: No pedal edema Neurologic/Psychiatric: positive: Other (No focal deficits.) - Lab Results Fish Bones: 12/27/21 08:14 01/07/22 04:49 Other Labs: Lab Results x24hrs 01/07/22 01/07/22 01/07/22 Range/Units 11:04 07:25 04:49 Sodium 134 L (135-145) mmol/L Potassium 3.9 (3.5-5.0) mmol/L Chloride 104 (101-111) mmol/L Carbon Dioxide 22 (21-32) mmol/L Anion Gap 8.0 (6-13) BUN 68 H (6-20) mg/dL Creatinine 4.5 H (0.6-1.2) mg/dL Estimated GFR (MDRD) 13 L (>89) Glucose 119 H (70-100) mg/dL POC Whole Bld Glucose 188 H 105 H (70 - 100) mg/dL Calcium 9.2 (8.5-10.3) mg/dL 01/06/22 01/06/22 Range/Units 20:35 16:46 Sodium (135-145) mmol/L Potassium (3.5-5.0) mmol/L Chloride (101-111) mmol/L Carbon Dioxide (21-32) mmol/L Anion Gap (6-13) BUN (6-20) mg/dL Creatinine (0.6-1.2) mg/dL Estimated GFR (MDRD) (>89) Glucose (70-100) mg/dL POC Whole Bld Glucose 156 H 114 H (70 - 100) mg/dL Calcium (8.5-10.3) mg/dL Assessment/Plan - Problem List (1) Seizure Impression: This has been stable on the current dose of Keppra 250 mg BID. We also added Depakote which he has tolerated well. This will be continued on discharge. He is pending placement. (2) CKD (chronic kidney disease) stage 4, GFR 15-29 ml/min Impression: No function is improved today to 4.5 and his baseline is around 4. He was likely little dry yesterday and responded well to IV fluids. I have asked him to encourage his oral intake and also asked his nurse to encourage him to drink plenty of fluids. If he remains hospitalized for prolonged period of time then we will continue to check labs on a weekly basis to ensure his renal function is stable. He may need a telemedicine follow-up appointment with his human resource manager. (3) Atrial fibrillation Impression: Controlled on diltiazem. We are continuing Eliquis for anticoagulation. Qualifiers: Atrial fibrillation type: longstanding persistent Qualified Code(s): I48.11 - Longstanding persistent atrial fibrillation (4) Parkinson disease Impression: Continue Sinemet. We are working on disposition for a SNF. (5) [place] (hard of hearing) Impression: We continue to communicate with writing as he is quite hard of hearing. (6) Type 2 diabetes mellitus Impression: His blood glucose has been well controlled on a carb controlled diet with sliding scale. His A1c was 6.4%.
[2022-01-07] MEDS: ATORVASTATIN 40 MG TABLET PO SCH (20:47)
[2022-01-08] MEDS: SODIUM CHLORIDE FLUSH 0.9% 10 ML SYRINGE IVP SCH ×3 (02:01→17:17)
[2022-01-08] MEDS: CARBIDOPA/LEVODOPA 25 MG/250 MG TABLET PO SCH ×4 (02:01→21:16)
[2022-01-08] MEDS: PANTOPRAZOLE 40 MG TABLET PO SCH ×2 (06:57→16:11)
--- NOTE | 2022-01-08 07:29 | PROVIDER PROGRESS NOTE ---
Subjective - Prog Note Date Prog Note Date: 01/08/22 - Subjective Subjective: He has no complaints. Current Medications - Current Medications Current Medications: Active Medications Acetaminophen (Acetaminophen 325 Mg Tablet) 650 mg PO Q4HR PRN PRN Reason: Pain 1 to 4, or Fever Last Admin: 01/07/22 10:31 Dose: 650 mg Acetaminophen/Codeine Phosphate (Acetaminophen/Codeine 300 Mg/30 Mg Tablet) 0.5 tab PO BID PRN PRN Reason: Severe Pain Last Admin: 01/08/22 17:35 Dose: 0.5 tab Apixaban (Apixaban 2.5 Mg Tablet) 2.5 mg PO BID [facility] Last Admin: 01/08/22 10:28 Dose: 2.5 mg Atorvastatin Calcium (Atorvastatin 40 Mg Tablet) 40 mg PO QPM [facility] Last Admin: 01/07/22 20:47 Dose: 40 mg Calcitriol (Calcitriol 0.25 Mcg Capsule) 0.5 mcg PO DAILY [facility] Last Admin: 01/08/22 10:27 Dose: 0.5 mcg Carbidopa/Levodopa (Carbidopa/Levodopa 25 Mg/250 Mg Tablet) 2 tab PO 0200,0800,1400,2000 [facility] Last Admin: 01/08/22 14:02 Dose: 2 tab Diltiazem HCl (Diltiazem Cd 180 Mg Capsule) 180 mg PO DAILY [facility] Last Admin: 01/08/22 10:28 Dose: 180 mg Divalproex Sodium (Divalproex Er 250 Mg Tablet) 500 mg PO BID [facility] Last Admin: 01/08/22 10:27 Dose: 500 mg Entacapone (Entacapone 200 Mg Tablet) 200 mg PO BID [facility] Last Admin: 01/08/22 11:10 Dose: Not Given Fluticasone Propionate (Fluticasone Nasal [place]) 1 sprays TAWANDA DAILY [facility] Last Admin: 01/08/22 11:08 Dose: Not Given Insulin Aspart (Insulin Aspart 300 Unit/3 Ml Pen) 1 - 5 unit SUBQ 0800,1200,1700,2100 [facility]; Protocol Last Admin: 01/08/22 17:17 Dose: 1 unit Levetiracetam (Levetiracetam 250 Mg Tablet) 250 mg PO QPM [facility] Last Admin: 01/07/22 20:48 Dose: 250 mg Levetiracetam (Levetiracetam 250 Mg Tablet) 250 mg PO DAILY [facility] Last Admin: 01/08/22 10:30 Dose: 250 mg Lidocaine (Lidocaine Patch 5%) 1 patch TOP DAILY PRN PRN Reason: PAIN Last Admin: 01/06/22 18:12 Dose: 1 patch Lorazepam (Lorazepam 2 Mg/Ml Vial) 1 mg IVP Q2H PRN PRN Reason: Seizure Last Admin: 12/10/21 08:37 Dose: 1 mg Magnesium Oxide (Magnesium Oxide 400 Mg Tablet) 400 mg PO BIDWM [facility] Last Admin: 01/08/22 17:17 Dose: 400 mg Multivitamins (Multivitamin Tablet) 1 tab PO DAILYWM [facility] Last Admin: 01/08/22 10:28 Dose: 1 tab Ondansetron HCl (Ondansetron 4 Mg/2 Ml Vial) 4 mg IVP Q6HR PRN PRN Reason: Nausea / Vomiting Pantoprazole Sodium (Pantoprazole 40 Mg Tablet) 40 mg PO BIDAC [facility] Last Admin: 01/08/22 16:11 Dose: 40 mg Polyethylene Glycol (Polyethylene Glycol 3350 17 Gm Packet) 17 gm PO DAILY [facility] Last Admin: 01/08/22 10:30 Dose: Not Given Senna (Senna 8.6 Mg Tablet) 8.6 mg PO DAILY PRN PRN Reason: Constipation Last Admin: 12/18/21 09:00 Dose: 8.6 mg Sodium Chloride (Sodium Chloride Flush 0.9% 10 Ml Syringe) 10 ml IVP PRN PRN PRN Reason: NEEDED PER PROVIDER ORDERS Last Admin: 01/06/22 09:30 Dose: 10 ml Sodium Chloride (Sodium Chloride Flush 0.9% 10 Ml Syringe) 10 ml IVP 0100,0 900,1700 [facility] Last Admin: 01/08/22 17:17 Dose: 10 ml Tamsulosin HCl (Tamsulosin 0.4 Mg Capsule) 0.4 mg PO DAILY [facility] Last Admin: 01/08/22 10:27 Dose: 0.4 mg Omeprazole 20 mg PO BID 10/02/13 Atorvastatin Calcium 40 mg PO QPM 01/24/16 Carbidopa/Levodopa [Carbidopa-Levodopa 25-250 Tab] 2 each PO QID 01/05/20 Rivaroxaban [Xarelto] 15 mg PO QDDINNER 07/23/20 Entacapone [Comtan] 200 mg PO BID 04/02/21 Multivit-Min/Folic/Vit K/Lycop [One Daily Men's 50 Plus D3 Tab] 1 each PO DAILY 04/02/21 calcitrioL [Rocaltrol] 0.5 mcg PO DAILY 04/02/21 Insulin Glargine [Lantus Solostar] 8 unit SQ HS 04/23/21 Senna [Senokot] 8.6 mg PO DAILY PRN 04/23/21 Albuterol Sulfate [Proair Hfa Inhaler] 2 puffs INH Q4HR PRN 11/18/21 Fluticasone [Flonase] 2 spray TAWANDA DAILY 11/18/21 diltiaZEM CD [Cardizem Cd] 180 mg PO DAILY 12/09/21 Objective - Vital Signs/Intake & Output Reviewed Vital Signs: Yes Intake & Output: Intake & Output 01/05/22 01/06/22 01/07/22 01/08/22 23:59 23:59 23:59 23:59 Intake Total 2398 2580 1590 300 Output Total 432 239 2263 800 Balance 1748 2405 565 500 - Objective General Appearance: positive: No acute distress, Alert Eyes Bilateral: positive: Normal inspection ENT: positive: ENT inspection nml, No signs of dehydration Respiratory: positive: No respiratory distress - Lab Results Fish Bones: 12/27/21 08:14 01/07/22 04:49 Other Labs: Lab Results x24hrs 01/07/22 01/07/22 01/07/22 Range/Units 20:33 16:30 11:04 POC Whole Bld Glucose 146 H 165 H 188 H (70 - 100) mg/dL Assessment/Plan - Problem List (1) Seizure Impression: This has been stable on the current dose of Keppra 250 mg BID. We also added Depakote which he has tolerated well. This will be continued on discharge. He is pending placement. (2) CKD (chronic kidney disease) stage 4, GFR 15-29 ml/min Impression: Last creatinine was 4.5 which is a little above his baseline of 4. We are encouraging him to increase his oral intake. We will check labs once a week to ensure his kidney function is stable. If his hospitalization remains prolonged then we can consider a telemedicine nephrology follow-up. (3) Atrial fibrillation Impression: Controlled on diltiazem. We are continuing Eliquis for anticoagulation. Qualifiers: Atrial fibrillation type: longstanding persistent Qualified Code(s): I48.11 - Longstanding persistent atrial fibrillation (4) Parkinson disease Impression: Continue Sinemet. We are working on disposition for a SNF. (5) [place] (hard of hearing) Impression: We continue to communicate with writing as he is quite hard of hearing. (6) Type 2 diabetes mellitus Impression: His blood glucose has been well controlled on a carb controlled diet with sliding scale. His A1c was 6.4%.
[2022-01-08] MEDS: INSULIN ASPART 300 UNIT/3 ML PEN SUBQ SCH ×4 (08:30→21:17)
[2022-01-08] MEDS: DIVALPROEX ER 250 MG TABLET PO SCH ×2 (10:27→21:16)
[2022-01-08] MEDS: TAMSULOSIN 0.4 MG CAPSULE PO SCH (10:27)
[2022-01-08] MEDS: calcitrioL 0.25 MCG CAPSULE PO SCH (10:27)
[2022-01-08] MEDS: APIXABAN 2.5 MG TABLET PO SCH ×2 (10:28→21:16)
[2022-01-08] MEDS: MULTIVITAMIN TABLET PO SCH (10:28)
[2022-01-08] MEDS: diltiaZEM CD 180 MG CAPSULE PO SCH (10:28)
[2022-01-08] MEDS: MAGNESIUM OXIDE 400 MG TABLET PO SCH ×2 (10:28→17:17)
[2022-01-08] MEDS: polyethylene glycoL 3350 17 GM PACKET PO SCH (10:30)
[2022-01-08] MEDS: levETIRAcetam 250 MG TABLET PO SCH ×2 (10:30→21:16)
[2022-01-08] MEDS: FLUTICASONE NASAL SPRAY NAS SCH (11:08)
[2022-01-08] MEDS: ENTACAPONE 200 MG TABLET PO SCH ×2 (11:10→21:17)
[2022-01-08] MEDS: ACETAMINOPHEN/CODEINE 300 MG/30 MG TABLET PO PRN (17:35)
[2022-01-08] MEDS: ATORVASTATIN 40 MG TABLET PO SCH (21:16)
[2022-01-09] MEDS: SODIUM CHLORIDE FLUSH 0.9% 10 ML SYRINGE IVP SCH ×3 (00:21→17:06)
[2022-01-09] MEDS: CARBIDOPA/LEVODOPA 25 MG/250 MG TABLET PO SCH ×4 (02:04→20:55)
[2022-01-09] MEDS: PANTOPRAZOLE 40 MG TABLET PO SCH ×2 (06:03→17:05)
[2022-01-09] MEDS: ACETAMINOPHEN/CODEINE 300 MG/30 MG TABLET PO PRN (08:09)
[2022-01-09] MEDS: calcitrioL 0.25 MCG CAPSULE PO SCH (08:13)
[2022-01-09] MEDS: levETIRAcetam 250 MG TABLET PO SCH ×2 (08:13→20:55)
[2022-01-09] MEDS: MULTIVITAMIN TABLET PO SCH (08:14)
[2022-01-09] MEDS: MAGNESIUM OXIDE 400 MG TABLET PO SCH ×2 (08:14→17:06)
[2022-01-09] MEDS: DIVALPROEX ER 250 MG TABLET PO SCH ×2 (08:14→20:55)
[2022-01-09] MEDS: TAMSULOSIN 0.4 MG CAPSULE PO SCH (08:14)
[2022-01-09] MEDS: INSULIN ASPART 300 UNIT/3 ML PEN SUBQ SCH ×4 (08:14→20:58)
[2022-01-09] MEDS: APIXABAN 2.5 MG TABLET PO SCH ×2 (08:14→20:55)
[2022-01-09] MEDS: diltiaZEM CD 180 MG CAPSULE PO SCH (08:14)
[2022-01-09] MEDS: ENTACAPONE 200 MG TABLET PO SCH ×2 (08:15→20:57)
[2022-01-09] MEDS: polyethylene glycoL 3350 17 GM PACKET PO SCH (08:15)
[2022-01-09] MEDS: FLUTICASONE NASAL SPRAY NAS SCH (08:16)
--- NOTE | 2022-01-09 17:44 | PROVIDER PROGRESS NOTE ---
Subjective - Prog Note Date Prog Note Date: 01/09/22 - Subjective Subjective: He has no complaints. Feels occasionally stiff. He likes the care he is receiving here. Current Medications - Current Medications Current Medications: Active Medications Acetaminophen (Acetaminophen 325 Mg Tablet) 650 mg PO Q4HR PRN PRN Reason: Pain 1 to 4, or Fever Last Admin: 01/07/22 10:31 Dose: 650 mg Acetaminophen/Codeine Phosphate (Acetaminophen/Codeine 300 Mg/30 Mg Tablet) 0.5 tab PO BID PRN PRN Reason: Severe Pain Last Admin: 01/09/22 08:09 Dose: 0.5 tab Apixaban (Apixaban 2.5 Mg Tablet) 2.5 mg PO BID [facility] Last Admin: 01/09/22 08:14 Dose: 2.5 mg Atorvastatin Calcium (Atorvastatin 40 Mg Tablet) 40 mg PO QPM [facility] Last Admin: 01/08/22 21:16 Dose: 40 mg Calcitriol (Calcitriol 0.25 Mcg Capsule) 0.5 mcg PO DAILY [facility] Last Admin: 01/09/22 08:13 Dose: 0.5 mcg Carbidopa/Levodopa (Carbidopa/Levodopa 25 Mg/250 Mg Tablet) 2 tab PO 0200,0800,1400,2000 [facility] Last Admin: 01/09/22 13:21 Dose: 2 tab Diltiazem HCl (Diltiazem Cd 180 Mg Capsule) 180 mg PO DAILY [facility] Last Admin: 01/09/22 08:14 Dose: Not Given Divalproex Sodium (Divalproex Er 250 Mg Tablet) 500 mg PO BID [facility] Last Admin: 01/09/22 08:14 Dose: 500 mg Entacapone (Entacapone 200 Mg Tablet) 200 mg PO BID [facility] Last Admin: 01/09/22 08:15 Dose: Not Given Fluticasone Propionate (Fluticasone Nasal [place]) 1 sprays TAWANDA DAILY [facility] Last Admin: 01/09/22 08:16 Dose: 1 spr Insulin Aspart (Insulin Aspart 300 Unit/3 Ml Pen) 1 - 5 unit SUBQ 0800,1200,1700,2100 [facility]; Protocol Last Admin: 01/09/22 17:06 Dose: Not Given Levetiracetam (Levetiracetam 250 Mg Tablet) 250 mg PO QPM [facility] Last Admin: 01/08/22 21:16 Dose: 250 mg Levetiracetam (Levetiracetam 250 Mg Tablet) 250 mg PO DAILY [facility] Last Admin: 01/09/22 08:13 Dose: 250 mg Lidocaine (Lidocaine Patch 5%) 1 patch TOP DAILY PRN PRN Reason: PAIN Last Admin: 01/06/22 18:12 Dose: 1 patch Lorazepam (Lorazepam 2 Mg/Ml Vial) 1 mg IVP Q2H PRN PRN Reason: Seizure Last Admin: 12/10/21 08:37 Dose: 1 mg Magnesium Oxide (Magnesium Oxide 400 Mg Tablet) 400 mg PO BIDWM [facility] Last Admin: 01/09/22 17:06 Dose: 400 mg Multivitamins (Multivitamin Tablet) 1 tab PO DAILYWM [facility] Last Admin: 01/09/22 08:14 Dose: 1 tab Ondansetron HCl (Ondansetron 4 Mg/2 Ml Vial) 4 mg IVP Q6HR PRN PRN Reason: Nausea / Vomiting Pantoprazole Sodium (Pantoprazole 40 Mg Tablet) 40 mg PO BIDAC [facility] Last Admin: 01/09/22 17:05 Dose: 40 mg Polyethylene Glycol (Polyethylene Glycol 3350 17 Gm Packet) 17 gm PO DAILY [facility] Last Admin: 01/09/22 08:15 Dose: Not Given Senna (Senna 8.6 Mg Tablet) 8.6 mg PO DAILY PRN PRN Reason: Constipation Last Admin: 12/18/21 09:00 Dose: 8.6 mg Sodium Chloride (Sodium Chloride Flush 0.9% 10 Ml Syringe) 10 ml IVP PRN PRN PRN Reason: NEEDED PER PROVIDER ORDERS Last Admin: 01/06/22 09:30 Dose: 10 ml Sodium Chloride (Sodium Chloride Flush 0.9% 10 Ml Syringe) 10 ml IVP 0100,0900,1700 [facility] Last Admin: 01/09/22 17:06 Dose: 10 ml Tamsulosin HCl (Tamsulosin 0.4 Mg Capsule) 0.4 mg PO DAILY [facility] Last Admin: 01/09/22 08:14 Dose: 0.4 mg Omeprazole 20 mg PO BID 10/02/13 Atorvastatin Calcium 40 mg PO QPM 01/24/16 Carbidopa/Levodopa [Carbidopa-Levodopa 25-250 Tab] 2 each PO QID 01/05/20 Rivaroxaban [Xarelto] 15 mg PO QDDINNER 07/23/20 Entacapone [Comtan] 200 mg PO BID 04/02/21 Multivit-Min/Folic/Vit K/Lycop [One Daily Men's 50 Plus D3 Tab] 1 each PO DAILY 04/02/21 calcitrioL [Rocaltrol] 0.5 mcg PO DAILY 04/02/21 Insulin Glargine [Lantus Solostar] 8 unit SQ HS 04/23/21 Senna [Senokot] 8.6 mg PO DAILY PRN 04/23/21 Albuterol Sulfate [Proair Hfa Inhaler] 2 puffs INH Q4HR PRN 11/18/21 Fluticasone [Flonase] 2 spray TAWANDA DAILY 11/18/21 diltiaZEM CD [Cardizem Cd] 180 mg PO DAILY 12/09/21 Objective - Vital Signs/Intake & Output Reviewed Vital Signs: Yes Intake & Output: Intake & Output 01/06/22 01/07/22 01/08/22 01/09/22 23:59 23:59 23:59 23:59 Intake Total 2580 1590 1670 1500 Output Total 575 1025 1900 750 Balance 2004 565 -230 750 - Objective General Appearance: positive: No acute distress, Alert Eyes Bilateral: positive: Normal inspection ENT: positive: ENT inspection nml Neck: positive: Nml inspection Respiratory: positive: No respiratory distress Skin: positive: Warm Extremities: positive: No pedal edema - Lab Results Fish Bones: 12/27/21 08:14 01/07/22 04:49 Other Labs: Lab Results x24hrs 01/09/22 01/09/22 01/09/22 Range/Units 16:33 11:06 07:31 POC Whole Bld Glucose 137 H 157 H 104 H (70 - 100) mg/dL 01/08/22 Range/Units 20:34 POC Whole Bld Glucose 139 H (70 - 100) mg/dL Assessment/Plan - Problem List (1) Seizure Impression: This has been stable on the current dose of Keppra 250 mg BID. We also added Depakote which he has tolerated well. This will be continued on discharge. He is pending placement. (2) CKD (chronic kidney disease) stage 4, GFR 15-29 ml/min Impression: Last creatinine was 4.5 which is a little above his baseline of 4. We are encouraging him to increase his oral intake. We will check labs once a week to ensure his kidney function is stable. If his hospitalization remains prolonged then we can consider a telemedicine nephrology follow-up. (3) Atrial fibrillation Impression: Controlled on diltiazem. We are continuing Eliquis for anticoagulation. Qualifiers: Atrial fibrillation type: longstanding persistent Qualified Code(s): I48.11 - Longstanding persistent atrial fibrillation (4) Parkinson disease Impression: Continue Sinemet. We are working on disposition for a SNF. (5) [place] (hard of hearing) Impression: We continue to communicate with writing as he is quite hard of hearing. (6) Type 2 diabetes mellitus Impression: His blood glucose has been well controlled on a carb controlled diet with sliding scale. His A1c was 6.4%.
[2022-01-09] MEDS: ATORVASTATIN 40 MG TABLET PO SCH (20:55)
[2022-01-10] MEDS: ACETAMINOPHEN/CODEINE 300 MG/30 MG TABLET PO PRN (00:33)
[2022-01-10] MEDS: SODIUM CHLORIDE FLUSH 0.9% 10 ML SYRINGE IVP SCH ×3 (00:34→17:18)
[2022-01-10] MEDS: CARBIDOPA/LEVODOPA 25 MG/250 MG TABLET PO SCH ×5 (02:30→20:33)
[2022-01-10] MEDS: PANTOPRAZOLE 40 MG TABLET PO SCH ×2 (06:33→16:04)
[2022-01-10] MEDS: INSULIN ASPART 300 UNIT/3 ML PEN SUBQ SCH ×4 (09:04→20:34)
[2022-01-10] MEDS: calcitrioL 0.25 MCG CAPSULE PO SCH ×2 (09:22→11:29)
[2022-01-10] MEDS: MULTIVITAMIN TABLET PO SCH (09:23)
[2022-01-10] MEDS: MAGNESIUM OXIDE 400 MG TABLET PO SCH ×2 (09:23→17:17)
[2022-01-10] MEDS: APIXABAN 2.5 MG TABLET PO SCH ×3 (09:23→20:33)
[2022-01-10] MEDS: DIVALPROEX ER 250 MG TABLET PO SCH ×2 (10:55→20:33)
[2022-01-10] MEDS: diltiaZEM CD 180 MG CAPSULE PO SCH (10:57)
[2022-01-10] MEDS: polyethylene glycoL 3350 17 GM PACKET PO SCH (11:00)
[2022-01-10] MEDS: FLUTICASONE NASAL SPRAY NAS SCH (11:02)
[2022-01-10] MEDS: TAMSULOSIN 0.4 MG CAPSULE PO SCH (11:03)
[2022-01-10] MEDS: levETIRAcetam 250 MG TABLET PO SCH ×2 (11:20→20:33)
[2022-01-10] MEDS: ENTACAPONE 200 MG TABLET PO SCH ×2 (11:26→20:34)
--- NOTE | 2022-01-10 16:46 | PROVIDER PROGRESS NOTE ---
Assessment/Plan - Problem List (1) Seizure Assessment/Plan: This has been stable on the current dose of Keppra 250 mg BID. We also added Depakote which he has tolerated well. This will be continued on discharge. He is pending permanent placement, SW is working on this. (2) CKD (chronic kidney disease) stage 4, GFR 15-29 ml/min Impression: Last creatinine was 4.5 which is a little above his baseline of 4. We are encouraging him to increase his oral intake. We will check labs once a week to ensure his kidney function is stable. If his hospitalization remains prolonged then we can consider a telemedicine nephrology follow-up. (3) Atrial fibrillation Impression: HR is controlled on diltiazem. We are also continuing Eliquis for anticoagulation. Qualifiers: Atrial fibrillation type: longstanding persistent Qualified Code(s): I48.11 - Longstanding persistent atrial fibrillation (4) Parkinson disease Impression: Continue Sinemet. He has some amount of dementia as well, had a cognitive eval earlier this hospitalization. We are working on disposition for a SNF then LTC. (5) [place] (hard of hearing) Impression: We continue to communicate with writing as he is quite hard of hearing and no available batteries fit his hearing aid. (6) Type 2 diabetes mellitus Impression: His blood glucose has been well controlled on a carb controlled diet with sliding scale. His A1c was 6.4%. - Current Meds Current Meds: Current Medications Generic Name Dose Route Start Last Admin Trade Name Edwinq PRN Reason Stop Dose Admin Acetaminophen 650 mg 12/09/21 15:00 01/07/22 10:31 Acetaminophen 325 Mg Tablet PO 650 mg Q4HR PRN Administration Pain 1 to 4, or Fever Acetaminophen/Codeine Phosphate 0.5 tab 01/06/22 18:15 01/10/22 00:33 Acetaminophen/Codeine 300 Mg/30 Mg Tablet PO 0.5 tab BID PRN Administration Severe Pain Apixaban 2.5 mg 12/12/21 21:00 01/10/22 11:24 Apixaban 2.5 Mg Tablet PO 2.5 mg BID P[facility]Z Administration Atorvastatin Calcium 40 mg 12/10/21 21:00 01/09/22 20:55 Atorvastatin 40 Mg Tablet PO 40 mg QPM P[facility]Z Administration Calcitriol 0.5 mcg 12/11/21 09:00 01/10/22 11:29 Calcitriol 0.25 Mcg Capsule PO 0.5 mcg DAILY [facility] Administration Carbidopa/Levodopa 2 tab 12/10/21 15:00 01/10/22 14:42 Carbidopa/Levodopa 25 Mg/250 Mg Tablet PO 2 tab 0200,0800,1400,2000 [facility] Administration Diltiazem HCl 180 mg 12/11/21 09:00 01/10/22 10:57 Diltiazem Cd 180 Mg Capsule PO 180 mg DAILY [facility] Administration Divalproex Sodium 500 mg 12/13/21 09:00 01/10/22 10:55 Divalproex Er 250 Mg Tablet PO 500 mg BID P[facility] Administration Entacapone 200 mg 12/10/21 21:00 01/10/22 11:26 Entacapone 200 Mg Tablet PO Not Given BID P[facility]Z Fluticasone Propionate 1 sprays 12/11/21 09:00 01/10/22 11:02 Fluticasone Nasal [place] TAWANDA 1 spr DAILY [facility] Administration Insulin Aspart 1 - 5 unit 12/09/21 17:00 01/10/22 12:14 Insulin Aspart 300 Unit/3 Ml Pen SUBQ 1 unit 0800,1200,1700,2100 P[facility] Administration Protocol Levetiracetam 250 mg 12/30/21 22:27 01/09/22 20:55 Levetiracetam 250 Mg Tablet PO 250 mg QPM [facility] Administration Levetiracetam 250 mg 01/01/22 09:00 01/10/22 11:20 Levetiracetam 250 Mg Tablet PO 250 mg DAILY [facility] Administration Lidocaine 1 patch 12/12/21 14:19 01/06/22 18:12 Lidocaine Patch 5% TOP 1 patch DAILY PRN Administration PAIN Lorazepam 1 mg 12/09/21 16:25 12/10/21 08:37 Lorazepam 2 Mg/Ml Vial IVP 1 mg Q2H PRN Administration Seizure Magnesium Oxide 400 mg 12/19/21 17:00 01/10/22 09:23 Magnesium Oxide 400 Mg Tablet PO 400 mg BIDWM [facility] Administration Multivitamins 1 tab 12/11/21 08:00 01/10/22 09:23 Multivitamin Tablet PO 1 tab DAILYWM [facility] Administration Pantoprazole Sodium 40 mg 12/10/21 16:00 01/10/22 16:04 Pantoprazole 40 Mg Tablet PO 40 mg BIDAC P[facility] Administration Polyethylene Glycol 17 gm 05/21/22 09:00 01/10/22 11:00 Polyethylene Glycol 3350 17 Gm Packet PO Not Given DAILY PEREZ Senna 8.6 mg 12/10/21 14:29 12/18/21 09:00 Senna 8.6 Mg Tablet PO 8.6 mg DAILY PRN Administration Constipation Sodium Chloride 10 ml 01/06/22 14:04 01/06/22 09:30 Sodium Chloride Flush 0.9% 10 Ml Syringe IVP 10 ml PRN PRN Administration NEEDED PER PROVIDER ORDERS Sodium Chloride 10 ml 01/06/22 17:00 01/10/22 12:16 Sodium Chloride Flush 0.9% 10 Ml Syringe IVP 10 ml 0100,0900,1700 P[facility] Administration Tamsulosin HCl 0.4 mg 12/11/21 09:00 01/10/22 11:03 Tamsulosin 0.4 Mg Capsule PO 0.4 mg DAILY PEREZ Administration - Lab Result Fish Bone Diagrams: 12/27/21 08:14 01/07/22 04:49 Subjective - Subjective Patient Reports: No Complaints Objective Vital Signs: Vital Signs - 24 hr 01/10/22 07:46 Temperature 36.4 C L Heart Rate [ 85 Brachial] Respiratory 18 Rate Blood Pressure 129/70 [Left Brachial artery] O2 Saturation 98 Oxygen O2 Source Room air I&O (Last 24 Hrs): Intake and Output Totals x24h 01/08/22 01/09/22 01/10/22 23:59 23:59 23:59 Intake Total 1670 2070 700 Output Total 1900 750 925 Balance -230 1320 -225 General: Alert HEENT: Mucous membr. moist/pink, Other ([place]) Neuro: Other (Stiff, slow speech, no tremors) Cardiovascular: No murmurs Respiratory: No respiratory distress Abdomen: Soft Extremities: No edema - Results Results: Laboratory Results WBC 7.1 x10^3/uL (4.8-10.8) 12/27/21 08:14 RBC 3.62 10^6/uL (4.70-6.10) L 12/27/21 08:14 Hgb 10.9 g/dL (14.0-18.0) L 12/27/21 08:14 Hct 34.4 % (42.0-52.0) L 12/27/21 08:14 MCV 95.0 fL (80.0-94.0) H 12/27/21 08:14 MCH 30.1 pg (27.0-31.0) 12/27/21 08:14 MCHC 31.7 g/dL (32.0-36.0) L 12/27/21 08:14 RDW 15.2 % (12.0-15.0) H 12/27/21 08:14 Plt Count 179 10^3/uL (130-450) 12/27/21 08:14 MPV 12.2 fL (7.4-11.4) H 12/27/21 08:14 Neut # (Auto) 4.5 10^3/uL (1.5-6.6) 12/27/21 08:14 Lymph # (Auto) 1.7 10^3/uL (1.5-3.5) 12/27/21 08:14 [place] # (Auto) 0.8 10^3/uL (0.0-1.0) 12/27/21 08:14 Eos # (Auto) 0.1 10^3/uL (0.0-0.7) 12/27/21 08:14 Baso # (Auto) 0.1 10^3/uL (0.0-0.1) 12/27/21 08:14 Absolute Nucleated RBC 0.00 x10^3/uL 12/27/21 08:14 Nucleated RBC % 0.0 /100WBC 12/27/21 08:14 APTT 28.1 secs (24.9-33.3) 12/10/21 09:50 Sodium 134 mmol/L (135-145) L 01/07/22 04:49 Potassium 3.9 mmol/L (3.5-5.0) 01/07/22 04:49 Chloride 104 mmol/L (101-111) 01/07/22 04:49 Carbon Dioxide 22 mmol/L (21-32) 01/07/22 04:49 Anion Gap 8.0 (6-13) 01/07/22 04:49 BUN 68 mg/dL (6-20) H 01/07/22 04:49 Creatinine 4.5 mg/dL (0.6-1.2) H 01/07/22 04:49 Estimated GFR (MDRD) 13 (>89) L 01/07/22 04:49 Glucose 119 mg/dL (70-100) H 01/07/22 04:49 POC Whole Bld Glucose 159 mg/dL (70 - 100) H 01/10/22 11:23 Estimat Average Glucose 137 mg/dL (70-100) H 12/10/21 04:35 Hemoglobin A1c % 6.4 % (4.27-6.07) H 12/10/21 04:35 Calcium 9.2 mg/dL (8.5-10.3) 01/07/22 04:49 Phosphorus 4.1 mg/dL (2.5-4.6) 12/16/21 05:54 Magnesium 1.8 mg/dL (1.7-2.8) 12/21/21 17:27 Total Bilirubin 1.8 mg/dL (0.2-1.0) H 12/09/21 12:56 AST 13 IU/L (10-42) 12/09/21 12:56 ALT < 10 IU/L (10-60) L 12/09/21 12:56 Alkaline Phosphatase 60 IU/L (42-121) 12/09/21 12:56 Total Creatine Kinase 51 IU/L (22-269) 12/09/21 12:56 Troponin I High Sens 33.5 ng/L (2.3-19.7) H* 12/09/21 19:01 Total Protein 7.4 g/dL (6.7-8.2) 12/09/21 12:56 Albumin 4.1 g/dL (3.2-5.5) 12/09/21 12:56 Globulin 3.3 g/dL (2.1-4.2) 12/09/21 12:56 Albumin/Globulin Ratio 1.2 (1.0-2.2) 12/09/21 12:56 Lipase 35 U/L (22-51) 12/09/21 12:56 Urine Color YELLOW 12/09/21 13:59 Urine Clarity HAZY (CLEAR) 12/09/21 13:59 Urine pH 5.5 PH (5.0-7.5) 12/09/21 13:59 Ur Specific [place] >=1.030 (1.002-1.030) H 12/09/21 13:59 Urine Protein >=300 mg/dL (NEGATIVE) H 12/09/21 13:59 Urine Glucose (UA) NEGATIVE mg/dL (NEGATIVE) 12/09/21 13:59 Urine Ketones NEGATIVE mg/dL (NEGATIVE) 12/09/21 13:59 Urine Occult Blood MODERATE (NEGATIVE) H 12/09/21 13:59 Urine Nitrite NEGATIVE (NEGATIVE) 12/09/21 13:59 Urine Bilirubin NEGATIVE (NEGATIVE) 12/09/21 13:59 Urine Urobilinogen 0.2 (NORMAL) E.U./dL (NORMAL) 12/09/21 13:59 Ur Leukocyte Esterase NEGATIVE (NEGATIVE) 12/09/21 13:59 Urine RBC 11-25 /HPF (0-5) H 12/09/21 13:59 Urine WBC 6-10 /HPF (0-3) H 12/09/21 13:59 Ur Squamous Epith Cells RARE Squamous (<= Few) 12/09/21 13:59 Urine Bacteria Moderate /HPF (None Seen) H 12/09/21 13:59 Urine Casts 3-5 Granular Casts /LPF 12/09/21 13:59 Ur Microscopic Review INDICATED 12/09/21 13:59 Urine Culture Comments NOT INDICATED 12/09/21 13:59 Nasal Adenovirus (PCR) NOT DETECTED 12/09/21 13:59 Nasal B. parapertussis DNA (PCR) NOT DETECTED 12/09/21 13:59 Nasal Coronavir 229E PCR NOT DETECTED 12/09/21 13:59 Nasal Coronavir HKU1 PCR NOT DETECTED 12/09/21 13:59 Nasal Coronavir NL63 PCR NOT DETECTED 12/09/21 13:59 Nasal Coronavir OC43 PCR NOT DETECTED 12/09/21 13:59 Nasal Enterovir/Rhinovir PCR NOT DETECTED 12/09/21 13:59 Nasal Influenza B PCR NOT DETECTED 12/09/21 13:59 Nasal Influenza A PCR NOT DETECTED 12/09/21 13:59 Nasal Parainfluen 1 PCR NOT DETECTED 12/09/21 13:59 Nasal Parainfluen 2 PCR NOT DETECTED 12/09/21 13:59 Nasal Parainfluen 3 PCR NOT DETECTED 12/09/21 13:59 Nasal Parainfluen 4 PCR NOT DETECTED 12/09/21 13:59 Nasal RSV (PCR) NOT DETECTED 12/09/21 13:59 Nasal B.pertussis DNA PCR NOT DETECTED 12/09/21 13:59 Nasal C.pneumoniae (PCR) NOT DETECTED 12/09/21 13:59 [place] Human Metapneumo PCR NOT DETECTED 12/09/21 13:59 Nasal M.pneumoniae (PCR) NOT DETECTED 12/09/21 13:59 Nasal SARS-CoV-2 (PCR) NOT DETECTED 12/09/21 13:59 Last Dose Date Not Reportable 12/20/21 12:00 Last Dose Time Not Reportable 12/20/21 12:00 Urine Opiates Screen NEGATIVE (NEGATIVE) 12/09/21 13:59 Ur Oxycodone Screen NEGATIVE (NEGATIVE) 12/09/21 13:59 Urine Methadone Screen NEGATIVE (NEGATIVE) 12/09/21 13:59 Ur Propoxyphene Screen NEGATIVE (NEGATIVE) 12/09/21 13:59 Ur Barbiturates Screen NEGATIVE (NEGATIVE) 12/09/21 13:59 Valproic Acid 31.0 ug/mL 12/20/21 12:00 Ur Tricyclics Screen NEGATIVE (NEGATIVE) 12/09/21 13:59 Levetiracetam 20.5 ug/mL (10.0-40.0) 12/20/21 12:00 Ur Phencyclidine Scrn NEGATIVE (NEGATIVE) 12/09/21 13:59 Ur Amphetamine Screen NEGATIVE (NEGATIVE) 12/09/21 13:59 U Methamphetamines Scrn NEGATIVE (NEGATIVE) 12/09/21 13:59 U Benzodiazepines Scrn NEGATIVE (NEGATIVE) 12/09/21 13:59 Urine Cocaine Screen NEGATIVE (NEGATIVE) 12/09/21 13:59 U Cannabinoids Screen NEGATIVE (NEGATIVE) 12/09/21 13:59 - Procedures Procedures: Procedures VENOUS CATHETERIZATION NEC (04/17/14)
[2022-01-10] MEDS: ACETAMINOPHEN 325 MG TABLET PO PRN (20:32)
[2022-01-10] MEDS: ATORVASTATIN 40 MG TABLET PO SCH (20:33)
[2022-01-11] MEDS: SODIUM CHLORIDE FLUSH 0.9% 10 ML SYRINGE IVP SCH ×3 (01:13→15:33)
[2022-01-11] MEDS: CARBIDOPA/LEVODOPA 25 MG/250 MG TABLET PO SCH ×4 (02:38→22:28)
[2022-01-11] MEDS: PANTOPRAZOLE 40 MG TABLET PO SCH ×2 (06:22→15:32)
[2022-01-11] MEDS: ENTACAPONE 200 MG TABLET PO SCH ×2 (07:25→22:29)
[2022-01-11] MEDS: INSULIN ASPART 300 UNIT/3 ML PEN SUBQ SCH ×4 (07:25→22:29)
[2022-01-11] MEDS: TAMSULOSIN 0.4 MG CAPSULE PO SCH (08:43)
[2022-01-11] MEDS: MAGNESIUM OXIDE 400 MG TABLET PO SCH ×2 (08:43→15:34)
[2022-01-11] MEDS: diltiaZEM CD 180 MG CAPSULE PO SCH (08:43)
[2022-01-11] MEDS: MULTIVITAMIN TABLET PO SCH (08:43)
[2022-01-11] MEDS: levETIRAcetam 250 MG TABLET PO SCH ×2 (08:43→22:28)
[2022-01-11] MEDS: calcitrioL 0.25 MCG CAPSULE PO SCH (08:44)
[2022-01-11] MEDS: FLUTICASONE NASAL SPRAY NAS SCH (08:44)
[2022-01-11] MEDS: DIVALPROEX ER 250 MG TABLET PO SCH ×2 (08:44→22:28)
[2022-01-11] MEDS: APIXABAN 2.5 MG TABLET PO SCH ×2 (08:44→22:28)
[2022-01-11] MEDS: polyethylene glycoL 3350 17 GM PACKET PO SCH (08:57)
[2022-01-11] MEDS: ACETAMINOPHEN/CODEINE 300 MG/30 MG TABLET PO PRN (10:12)
[2022-01-11] MEDS: LIDOCAINE PATCH 5% TOP PRN (10:12)
--- NOTE | 2022-01-11 17:07 | PROVIDER PROGRESS NOTE ---
Assessment/Plan - Problem List (1) Seizure Assessment/Plan: This has been stable on the current dose of Keppra 250 mg BID plus Depakote. This will be continued on discharge. He is pending permanent placement, SW is working on this. (2) CKD (chronic kidney disease) stage 4, GFR 15-29 ml/min Impression: Last creatinine was 4.5 which is a little above his baseline of 4. We are encouraging him to increase his oral intake. He has a matured AV fistula in preparation for dialysis someday. There was a plan to contact his Identity Access Management Architect, but he does not know the name of that doctor. We will check labs once a week to ensure his kidney function is stable. If his hospitalization remains prolonged then we can consider a telemedicine nephrology follow-up. (3) Atrial fibrillation Impression: HR is controlled on diltiazem. We are also continuing Eliquis for anticoagulation. Qualifiers: Atrial fibrillation type: longstanding persistent Qualified Code(s): I48.11 - Longstanding persistent atrial fibrillation (4) Parkinson disease Impression: Continue Sinemet. He has some amount of dementia as well, had a cognitive eval earlier this hospitalization. We are working on disposition for a SNF then LTC. (5) MORONGO (hard of hearing) Impression: We continue to communicate with writing as he is quite hard of hearing and no available batteries fit his hearing aid. (6) Type 2 diabetes mellitus Impression: His blood glucose has been well controlled on a carb controlled diet with sliding scale. His A1c was 6.4%. - Current Meds Current Meds: Current Medications Generic Name Dose Route Start Last Admin Trade Name Jay PRN Reason Stop Dose Admin Acetaminophen 650 mg 12/09/21 15:00 01/10/22 20:32 Acetaminophen 325 Mg Tablet PO 650 mg Q4HR PRN Administration Pain 1 to 4, or Fever Acetaminophen/Codeine Phosphate 0.5 tab 01/06/22 18:15 01/11/22 10:12 Acetaminophen/Codeine 300 Mg/30 Mg Tablet PO 0.5 tab BID PRN Administration Severe Pain Apixaban 2.5 mg 12/12/21 21:00 01/11/22 08:44 Apixaban 2.5 Mg Tablet PO 2.5 mg BID PEREZ Administration Atorvastatin Calcium 40 mg 12/10/21 21:00 01/10/22 20:33 Atorvastatin 40 Mg Tablet PO 40 mg QPM PEREZ Administration Calcitriol 0.5 mcg 12/11/21 09:00 01/11/22 08:44 Calcitriol 0.25 Mcg Capsule PO 0.5 mcg DAILY PEREZ Administration Carbidopa/Levodopa 2 tab 12/10/21 15:00 01/11/22 13:35 Carbidopa/Levodopa 25 Mg/250 Mg Tablet PO 2 tab 0200,0800,1400,2000 PEREZ Administration Diltiazem HCl 180 mg 12/11/21 09:00 01/11/22 08:43 Diltiazem Cd 180 Mg Capsule PO 180 mg DAILY PEREZ Administration Divalproex Sodium 500 mg 12/13/21 09:00 01/11/22 08:44 Divalproex Er 250 Mg Tablet PO 500 mg BID PEREZ Administration Entacapone 200 mg 12/10/21 21:00 01/11/22 07:25 Entacapone 200 Mg Tablet PO Not Given BID PEREZ Fluticasone Propionate 1 sprays 12/11/21 09:00 01/11/22 08:44 Fluticasone Nasal [place] TAWANDA 1 spr DAILY PEREZ Administration Insulin Aspart 1 - 5 unit 12/09/21 17:00 01/11/22 12:04 Insulin Aspart 300 Unit/3 Ml Pen SUBQ 1 unit 0800,1200,1700,2100 PEREZ Administration Protocol Levetiracetam 250 mg 12/30/21 22:27 01/10/22 20:33 Levetiracetam 250 Mg Tablet PO 250 mg QPM PEREZ Administration Levetiracetam 250 mg 01/01/22 09:00 01/11/22 08:43 Levetiracetam 250 Mg Tablet PO 250 mg DAILY PEREZ Administration Lidocaine 1 patch 12/12/21 14:19 01/11/22 10:12 Lidocaine Patch 5% TOP 1 patch DAILY PRN Administration PAIN Lorazepam 1 mg 12/09/21 16:25 12/10/21 08:37 Lorazepam 2 Mg/Ml Vial IVP 1 mg Q2H PRN Administration Seizure Magnesium Oxide 400 mg 12/19/21 17:00 01/11/22 15:34 Magnesium Oxide 400 Mg Tablet PO 400 mg BIDWM PEREZ Administration Multivitamins 1 tab 12/11/21 08:00 01/11/22 08:43 Multivitamin Tablet PO 1 tab DAILYWM PEREZ Administration Pantoprazole Sodium 40 mg 12/10/21 16:00 01/11/22 15:32 Pantoprazole 40 Mg Tablet PO 40 mg BIDAC PEREZ Administration Polyethylene Glycol 17 gm 12/17/21 09:00 01/11/22 08:57 Polyethylene Glycol 3350 17 Gm Packet PO Not Given DAILY PEREZ Senna 8.6 mg 12/10/21 14:29 12/18/21 09:00 Senna 8.6 Mg Tablet PO 8.6 mg DAILY PRN Administration Constipation Sodium Chloride 10 ml 01/06/22 14:04 01/06/22 09:30 Sodium Chloride Flush 0.9% 10 Ml Syringe IVP 10 ml PRN PRN Administration NEEDED PER PROVIDER ORDERS Sodium Chloride 10 ml 01/06/22 17:00 01/11/22 15:33 Sodium Chloride Flush 0.9% 10 Ml Syringe IVP 10 ml 0100,0900,1700 PEREZ Administration Tamsulosin HCl 0.4 mg 12/11/21 09:00 01/11/22 08:43 Tamsulosin 0.4 Mg Capsule PO 0.4 mg DAILY PEREZ Administration - Lab Result Fish Bone Diagrams: 12/27/21 08:14 01/07/22 04:49 - Additional Planning My Orders: My Active Orders 01/12/22 05:00 BMP - BASIC METABOLIC PANEL [CHEM] DAILYLAB CBC - COMP BLD CT W/AUTO DIFF [HEME] DAILYLAB Subjective - Subjective Patient Reports: Resting Comfortably, No Complaints Nursing Reports: Other (MORONGO and communication is with writing to him, he answers verbally.) Objective Vital Signs: Vital Signs - 24 hr 01/11/22 07:29 Temperature 37.2 C Heart Rate [ 91 Brachial] Respiratory 16 Rate Blood Pressure 127/81 H [Left Brachial artery] O2 Saturation 98 Oxygen O2 Source Room air I&O (Last 24 Hrs): Intake and Output Totals x24h 01/09/22 01/10/22 01/11/22 23:59 23:59 23:59 Intake Total 2070 1180 870 Output Total 750 925 500 Balance 1320 255 370 General: Alert HEENT: Mucous membr. moist/pink, Other (MORONGO) Neck: Supple Neuro: Other (Stiff ness, no resting tremor, slow verbalizing) Cardiovascular: No murmurs Respiratory: No respiratory distress Abdomen: No tenderness Extremities: No edema - Results Results: Laboratory Results WBC 7.1 x10^3/uL (4.8-10.8) 12/27/21 08:14 RBC 3.62 10^6/uL (4.70-6.10) L 12/27/21 08:14 Hgb 10.9 g/dL (14.0-18.0) L 12/27/21 08:14 Hct 34.4 % (42.0-52.0) L 12/27/21 08:14 MCV 95.0 fL (80.0-94.0) H 12/27/21 08:14 MCH 30.1 pg (27.0-31.0) 12/27/21 08:14 MCHC 31.7 g/dL (32.0-36.0) L 12/27/21 08:14 RDW 15.2 % (12.0-15.0) H 12/27/21 08:14 Plt Count 179 10^3/uL (130-450) 12/27/21 08:14 MPV 12.2 fL (7.4-11.4) H 12/27/21 08:14 Neut # (Auto) 4.5 10^3/uL (1.5-6.6) 12/27/21 08:14 Lymph # (Auto) 1.7 10^3/uL (1.5-3.5) 12/27/21 08:14 [place] # (Auto) 0.8 10^3/uL (0.0-1.0) 12/27/21 08:14 Eos # (Auto) 0.1 10^3/uL (0.0-0.7) 12/27/21 08:14 Baso # (Auto) 0.1 10^3/uL (0.0-0.1) 12/27/21 08:14 Absolute Nucleated RBC 0.00 x10^3/uL 12/27/21 08:14 Nucleated RBC % 0.0 /100WBC 12/27/21 08:14 APTT 28.1 secs (24.9-33.3) 12/10/21 09:50 Sodium 134 mmol/L (135-145) L 01/07/22 04:49 Potassium 3.9 mmol/L (3.5-5.0) 01/07/22 04:49 Chloride 104 mmol/L (101-111) 01/07/22 04:49 Carbon Dioxide 22 mmol/L (21-32) 01/07/22 04:49 Anion Gap 8.0 (6-13) 01/07/22 04:49 BUN 68 mg/dL (6-20) H 01/07/22 04:49 Creatinine 4.5 mg/dL (0.6-1.2) H 01/07/22 04:49 Estimated GFR (MDRD) 13 (>89) L 01/07/22 04:49 Glucose 119 mg/dL (70-100) H 01/07/22 04:49 POC Whole Bld Glucose 145 mg/dL (70 - 100) H 01/11/22 16:31 Estimat Average Glucose 137 mg/dL (70-100) H 12/10/21 04:35 Hemoglobin A1c % 6.4 % (4.27-6.07) H 12/10/21 04:35 Calcium 9.2 mg/dL (8.5-10.3) 01/07/22 04:49 Phosphorus 4.1 mg/dL (2.5-4.6) 12/16/21 05:54 Magnesium 1.8 mg/dL (1.7-2.8) 12/21/21 17:27 Total Bilirubin 1.8 mg/dL (0.2-1.0) H 12/09/21 12:56 AST 13 IU/L (10-42) 12/09/21 12:56 ALT < 10 IU/L (10-60) L 12/09/21 12:56 Alkaline Phosphatase 60 IU/L (42-121) 12/09/21 12:56 Total Creatine Kinase 51 IU/L (22-269) 12/09/21 12:56 Troponin I High Sens 33.5 ng/L (2.3-19.7) H* 12/09/21 19:01 Total Protein 7.4 g/dL (6.7-8.2) 12/09/21 12:56 Albumin 4.1 g/dL (3.2-5.5) 12/09/21 12:56 Globulin 3.3 g/dL (2.1-4.2) 12/09/21 12:56 Albumin/Globulin Ratio 1.2 (1.0-2.2) 12/09/21 12:56 Lipase 35 U/L (22-51) 12/09/21 12:56 Urine Color YELLOW 12/09/21 13:59 Urine Clarity HAZY (CLEAR) 12/09/21 13:59 Urine pH 5.5 PH (5.0-7.5) 12/09/21 13:59 Ur Specific [place] >=1.030 (1.002-1.030) H 12/09/21 13:59 Urine Protein >=300 mg/dL (NEGATIVE) H 12/09/21 13:59 Urine Glucose (UA) NEGATIVE mg/dL (NEGATIVE) 12/09/21 13:59 Urine Ketones NEGATIVE mg/dL (NEGATIVE) 12/09/21 13:59 Urine Occult Blood MODERATE (NEGATIVE) H 12/09/21 13:59 Urine Nitrite NEGATIVE (NEGATIVE) 12/09/21 13:59 Urine Bilirubin NEGATIVE (NEGATIVE) 12/09/21 13:59 Urine Urobilinogen 0.2 (NORMAL) E.U./dL (NORMAL) 12/09/21 13:59 Ur Leukocyte Esterase NEGATIVE (NEGATIVE) 12/09/21 13:59 Urine RBC 11-25 /HPF (0-5) H 12/09/21 13:59 Urine WBC 6-10 /HPF (0-3) H 12/09/21 13:59 Ur Squamous Epith Cells RARE Squamous (<= Few) 12/09/21 13:59 Urine Bacteria Moderate /HPF (None Seen) H 12/09/21 13:59 Urine Casts 3-5 Granular Casts /LPF 12/09/21 13:59 Ur Microscopic Review INDICATED 12/09/21 13:59 Urine Culture Comments NOT INDICATED 12/09/21 13:59 Nasal Adenovirus (PCR) NOT DETECTED 12/09/21 13:59 Nasal B. parapertussis DNA (PCR) NOT DETECTED 12/09/21 13:59 Nasal Coronavir 229E PCR NOT DETECTED 12/09/21 13:59 Nasal Coronavir HKU1 PCR NOT DETECTED 12/09/21 13:59 Nasal Coronavir NL63 PCR NOT DETECTED 12/09/21 13:59 Nasal Coronavir OC43 PCR NOT DETECTED 12/09/21 13:59 Nasal Enterovir/Rhinovir PCR NOT DETECTED 12/09/21 13:59 Nasal Influenza B PCR NOT DETECTED 12/09/21 13:59 Nasal Influenza A PCR NOT DETECTED 05/13/22 13:59 Nasal Parainfluen 1 PCR NOT DETECTED 12/09/21 13:59 Nasal Parainfluen 2 PCR NOT DETECTED 12/09/21 13:59 Nasal Parainfluen 3 PCR NOT DETECTED 12/09/21 13:59 Nasal Parainfluen 4 PCR NOT DETECTED 12/09/21 13:59 Nasal RSV (PCR) NOT DETECTED 12/09/21 13:59 Nasal B.pertussis DNA PCR NOT DETECTED 12/09/21 13:59 Nasal C.pneumoniae (PCR) NOT DETECTED 12/09/21 13:59 [place] Human Metapneumo PCR NOT DETECTED 12/09/21 13:59 Nasal M.pneumoniae (PCR) NOT DETECTED 12/09/21 13:59 Nasal SARS-CoV-2 (PCR) NOT DETECTED 12/09/21 13:59 Last Dose Date Not Reportable 12/20/21 12:00 Last Dose Time Not Reportable 12/20/21 12:00 Urine Opiates Screen NEGATIVE (NEGATIVE) 12/09/21 13:59 Ur Oxycodone Screen NEGATIVE (NEGATIVE) 12/09/21 13:59 Urine Methadone Screen NEGATIVE (NEGATIVE) 12/09/21 13:59 Ur Propoxyphene Screen NEGATIVE (NEGATIVE) 12/09/21 13:59 Ur Barbiturates Screen NEGATIVE (NEGATIVE) 12/09/21 13:59 Valproic Acid 31.0 ug/mL 12/20/21 12:00 Ur Tricyclics Screen NEGATIVE (NEGATIVE) 12/09/21 13:59 Levetiracetam 20.5 ug/mL (10.0-40.0) 12/20/21 12:00 Ur Phencyclidine Scrn NEGATIVE (NEGATIVE) 12/09/21 13:59 Ur Amphetamine Screen NEGATIVE (NEGATIVE) 12/09/21 13:59 U Methamphetamines Scrn NEGATIVE (NEGATIVE) 12/09/21 13:59 U Benzodiazepines Scrn NEGATIVE (NEGATIVE) 12/09/21 13:59 Urine Cocaine Screen NEGATIVE (NEGATIVE) 12/09/21 13:59 U Cannabinoids Screen NEGATIVE (NEGATIVE) 12/09/21 13:59 - Procedures Procedures: Procedures [facility] (04/17/14)
[2022-01-11] MEDS: ATORVASTATIN 40 MG TABLET PO SCH (22:28)
[2022-01-12] MEDS: CARBIDOPA/LEVODOPA 25 MG/250 MG TABLET PO SCH ×4 (02:02→22:10)
[2022-01-12] MEDS: SODIUM CHLORIDE FLUSH 0.9% 10 ML SYRINGE IVP SCH ×3 (02:02→15:47)
[2022-01-12] MEDS: PANTOPRAZOLE 40 MG TABLET PO SCH ×2 (05:59→15:47)
[2022-01-12 06:00] LABS: BASOPHILS % (AUTO) 0.7 %; EOSINOPHILS # (AUTO) 0.1 10^3/uL (0.0-0.7); EOSINOPHILS % (AUTO) 2.4 %; HCT - HEMATOCRIT 29.1 % (42.0-52.0); HGB - HEMOGLOBIN 9.6 g/dL (14.0-18.0); LYMPHOCYTES # (AUTO) 1.2 10^3/uL (1.5-3.5); LYMPHOCYTES % (AUTO) 22.9 %; MEAN CORPUSCULAR HEMOGLOBIN 30.9 pg (27.0-31.0); MEAN CORPUSCULAR VOLUME 93.6 fL (80.0-94.0); MONOCYTES # (AUTO) 0.6 10^3/uL (0.0-1.0); NEUTROPHILS # (AUTO) 3.4 10^3/uL (1.5-6.6); NEUTROPHILS % (AUTO) 62.8 %; PLT - PLATELET COUNT 170 10^3/uL (130-450); RED BLOOD COUNT 3.11 10^6/uL (4.70-6.10); RED CELL DISTRIBUTION WIDTH 15.3 % (12.0-15.0); WHITE BLOOD COUNT 5.4 x10^3/uL (4.8-10.8)
[2022-01-12 06:10] LABS: CALCIUM 9.2 mg/dL (8.5-10.3); CREATININE 4.7 mg/dL (0.6-1.2); POTASSIUM 4.1 mmol/L (3.5-5.0)
[2022-01-12] MEDS: polyethylene glycoL 3350 17 GM PACKET PO SCH (07:31)
[2022-01-12] MEDS: INSULIN ASPART 300 UNIT/3 ML PEN SUBQ SCH ×4 (07:31→22:10)
[2022-01-12] MEDS: ENTACAPONE 200 MG TABLET PO SCH ×2 (07:31→22:11)
[2022-01-12] MEDS: calcitrioL 0.25 MCG CAPSULE PO SCH (08:06)
[2022-01-12] MEDS: diltiaZEM CD 180 MG CAPSULE PO SCH (08:06)
[2022-01-12] MEDS: MULTIVITAMIN TABLET PO SCH (08:07)
[2022-01-12] MEDS: APIXABAN 2.5 MG TABLET PO SCH ×2 (08:07→22:11)
[2022-01-12] MEDS: TAMSULOSIN 0.4 MG CAPSULE PO SCH (08:07)
[2022-01-12] MEDS: DIVALPROEX ER 250 MG TABLET PO SCH ×2 (08:07→22:10)
[2022-01-12] MEDS: MAGNESIUM OXIDE 400 MG TABLET PO SCH ×2 (08:07→15:46)
[2022-01-12] MEDS: levETIRAcetam 250 MG TABLET PO SCH ×2 (08:08→22:11)
[2022-01-12] MEDS: FLUTICASONE NASAL SPRAY NAS SCH (08:08)
--- NOTE | 2022-01-12 17:02 | PROVIDER PROGRESS NOTE ---
Assessment/Plan - Problem List (1) Seizure Assessment/Plan: This has been stable on the current dose of Keppra 250 mg BID plus Depakote. This will be continued on discharge. He is pending permanent placement, SW is working on this. (2) CKD (chronic kidney disease) stage 4, GFR 15-29 ml/min Impression: Last creatinine was 4.5 which is a little above his baseline of 4. We are encouraging him to increase his oral intake. He has a matured AV fistula in preparation for dialysis someday. There was a plan to contact his Certified Legal Secretary Specialist, but he does not know the name of that doctor. Will try to reach his PCP to find out who that Certified Legal Secretary Specialist is. We will check labs once a week to ensure his kidney function is stable. If his hospitalization remains prolonged then we can consider a telemedicine nephrology follow-up. (3) Atrial fibrillation Impression: HR is controlled on diltiazem. We are also continuing Eliquis for anti coagulation. Qualifiers: Atrial fibrillation type: longstanding persistent Qualified Code(s): I48.11 - Longstanding persistent atrial fibrillation (4) Parkinson disease Impression: He has some amount of dementia as well, had a cognitive eval earlier this hospitalization and scored below normal. We are working on disposition for [facility] placement since it is not a safe discharge for his to live alone. Continue Sinemet. (5) APACHE (hard of hearing) Impression: We continue to communicate with writing as he is quite hard of hearing and no available batteries fit his hearing aid. It is interesting that he was noted on 2 occasions to be speaking to his DPOA on a cell phone, however. (6) Type 2 diabetes mellitus Impression: His blood glucose has been well controlled on a carb controlled diet with sliding scale. His A1c was 6.4%. - Current Meds Current Meds: Current Medications Generic Name Dose Route Start Last Admin Trade Name Freq PRN Reason Stop Dose Admin Acetaminophen 650 mg 12/09/21 15:00 01/10/22 20:32 Acetaminophen 325 Mg Tablet PO 650 mg Q4HR PRN Administration Pain 1 to 4, or Fever Acetaminophen/Codeine Phosphate 0.5 tab 01/06/22 18:15 01/11/22 10:12 Acetaminophen/Codeine 300 Mg/30 Mg Tablet PO 0.5 tab BID PRN Administration Severe Pain Apixaban 2.5 mg 12/12/21 21:00 01/12/22 08:07 Apixaban 2.5 Mg Tablet PO 2.5 mg BID PEREZ Administration Atorvastatin Calcium 40 mg 12/10/21 21:00 01/11/22 22:28 Atorvastatin 40 Mg Tablet PO 40 mg QPM PEREZ Administration Calcitriol 0.5 mcg 12/11/21 09:00 01/12/22 08:06 Calcitriol 0.25 Mcg Capsule PO 0.5 mcg DAILY PEREZ Administration Carbidopa/Levodopa 2 tab 12/10/21 15:00 01/12/22 13:24 Carbidopa/Levodopa 25 Mg/250 Mg Tablet PO 2 tab 0200,0800,1400,2000 PEREZ Administration Diltiazem HCl 180 mg 12/11/21 09:00 01/12/22 08:06 Diltiazem Cd 180 Mg Capsule PO 180 mg DAILY PEREZ Administration Divalproex Sodium 500 mg 12/13/21 09:00 01/12/22 08:07 Divalproex Er 250 Mg Tablet PO 500 mg BID PEREZ Administration Entacapone 200 mg 12/10/21 21:00 01/12/22 07:31 Entacapone 200 Mg Tablet PO Not Given BID PEREZ Fluticasone Propionate 1 sprays 12/11/21 09:00 01/12/22 08:08 Fluticasone Nasal [place] TAWANDA 1 spr DAILY PEREZ Administration Insulin Aspart 1 - 5 unit 12/09/21 17:00 01/12/22 11:24 Insulin Aspart 300 Unit/3 Ml Pen SUBQ Not Given 0800,1200,1700,2100 [facility] Protocol Levetiracetam 250 mg 12/30/21 22:27 01/11/22 22:28 Levetiracetam 250 Mg Tablet PO 250 mg QPM PEREZ Administration Levetiracetam 250 mg 01/01/22 09:00 01/12/22 08:08 Levetiracetam 250 Mg Tablet PO 250 mg DAILY PEREZ Administration Lidocaine 1 patch 12/12/21 14:19 01/11/22 10:12 Lidocaine Patch 5% TOP 1 patch DAILY PRN Administration PAIN Lorazepam 1 mg 12/09/21 16:25 12/10/21 08:37 Lorazepam 2 Mg/Ml Vial IVP 1 mg Q2H PRN Administration Seizure Magnesium Oxide 400 mg 12/19/21 17:00 01/12/22 15:46 Magnesium Oxide 400 Mg Tablet PO 400 mg BIDWM PEREZ Administration Multivitamins 1 tab 12/11/21 08:00 01/12/22 08:07 Multivitamin Tablet PO 1 tab DAILYWM PEREZ Administration Pantoprazole Sodium 40 mg 12/10/21 16:00 01/12/22 15:47 Pantoprazole 40 Mg Tablet PO 40 mg BIDAC PEREZ Administration Polyethylene Glycol 17 gm 12/17/21 09:00 01/12/22 07:31 Polyethylene Glycol 3350 17 Gm Packet PO Not Given DAILY PEREZ Senna 8.6 mg 12/10/21 14:29 12/18/21 09:00 Senna 8.6 Mg Tablet PO 8.6 mg DAILY PRN Administration Constipation Sodium Chloride 10 ml 01/06/22 14:04 01/06/22 09:30 Sodium Chloride Flush 0.9% 10 Ml Syringe IVP 10 ml PRN PRN Administration NEEDED PER PROVIDER ORDERS Sodium Chloride 10 ml 01/06/22 17:00 01/12/22 15:47 Sodium Chloride Flush 0.9% 10 Ml Syringe IVP 10 ml 0100,0900,1700 PEREZ Administration Tamsulosin HCl 0.4 mg 12/11/21 09:00 01/12/22 08:07 Tamsulosin 0.4 Mg Capsule PO 0.4 mg DAILY PEREZ Administration - Lab Result Fish Bone Diagrams: 01/12/22 05:55 01/12/22 05:55 Subjective - Subjective Patient Reports: Resting Comfortably Objective Vital Signs: Vital Signs - 24 hr 01/12/22 01/12/22 07:16 08:00 Temperature 36.5 C Heart Rate [ 78 Brachial] Respiratory 16 Rate Blood Pressure 111/62 120/61 [Left Brachial artery] O2 Saturation 96 Oxygen O2 Source Room air I&O (Last 24 Hrs): Intake and Output Totals x24h 01/10/22 01/11/22 01/12/22 23:59 23:59 23:59 Intake Total 1180 1457 680 Output Total 925 950 425 Balance 255 507 255 General: Alert HEENT: Mucous membr. moist/pink Neck: Supple Neuro: Alert, Other (Poor gait, HOJH) Cardiovascular: No murmurs Respiratory: No respiratory distress Abdomen: No tenderness Extremities: No edema - Results Results: Laboratory Results WBC 5.4 x10^3/uL (4.8-10.8) 01/12/22 05:55 RBC 3.11 10^6/uL (4.70-6.10) L 01/12/22 05:55 Hgb 9.6 g/dL (14.0-18.0) L 01/12/22 05:55 Hct 29.1 % (42.0-52.0) L 01/12/22 05:55 MCV 93.6 fL (80.0-94.0) 01/12/22 05:55 MCH 30.9 pg (27.0-31.0) 01/12/22 05:55 MCHC 33.0 g/dL (32.0-36.0) 01/12/22 05:55 RDW 15.3 % (12.0-15.0) H 01/12/22 05:55 Plt Count 170 10^3/uL (130-450) 01/12/22 05:55 MPV 12.0 fL (7.4-11.4) H 01/12/22 05:55 Neut # (Auto) 3.4 10^3/uL (1.5-6.6) 01/12/22 05:55 Lymph # (Auto) 1.2 10^3/uL (1.5-3.5) L 01/12/22 05:55 [place] # (Auto) 0.6 10^3/uL (0.0-1.0) 01/12/22 05:55 Eos # (Auto) 0.1 10^3/uL (0.0-0.7) 01/12/22 05:55 Baso # (Auto) 0.0 10^3/uL (0.0-0.1) 01/12/22 05:55 Absolute Nucleated RBC 0.00 x10^3/uL 01/12/22 05:55 Nucleated RBC % 0.0 /100WBC 01/12/22 05:55 APTT 28.1 secs (24.9-33.3) 12/10/21 09:50 Sodium 134 mmol/L (135-145) L 01/12/22 05:55 Potassium 4.1 mmol/L (3.5-5.0) 01/12/22 05:55 Chloride 103 mmol/L (101-111) 01/12/22 05:55 Carbon Dioxide 21 mmol/L (21-32) 01/12/22 05:55 Anion Gap 10.0 (6-13) 01/12/22 05:55 BUN 73 mg/dL (6-20) H 01/12/22 05:55 Creatinine 4.7 mg/dL (0.6-1.2) H 01/12/22 05:55 Estimated GFR (MDRD) 12 (>89) L 01/12/22 05:55 Glucose 110 mg/dL (70-100) H 01/12/22 05:55 POC Whole Bld Glucose 156 mg/dL (70 - 100) H 01/12/22 16:32 Estimat Average Glucose 137 mg/dL (70-100) H 12/10/21 04:35 Hemoglobin A1c % 6.4 % (4.27-6.07) H 12/10/21 04:35 Calcium 9.2 mg/dL (8.5-10.3) 01/12/22 05:55 Phosphorus 4.1 mg/dL (2.5-4.6) 12/16/21 05:54 Magnesium 1.8 mg/dL (1.7-2.8) 12/21/21 17:27 Total Bilirubin 1.8 mg/dL (0.2-1.0) H 12/09/21 12:56 AST 13 IU/L (10-42) 12/09/21 12:56 ALT < 10 IU/L (10-60) L 12/09/21 12:56 Alkaline Phosphatase 60 IU/L (42-121) 12/09/21 12:56 Total Creatine Kinase 51 IU/L (22-269) 12/09/21 12:56 Troponin I High Sens 33.5 ng/L (2.3-19.7) H* 12/09/21 19:01 Total Protein 7.4 g/dL (6.7-8.2) 12/09/21 12:56 Albumin 4.1 g/dL (3.2-5.5) 12/09/21 12:56 Globulin 3.3 g/dL (2.1-4.2) 12/09/21 12:56 Albumin/Globulin Ratio 1.2 (1.0-2.2) 12/09/21 12:56 Lipase 35 U/L (22-51) 12/09/21 12:56 Urine Color YELLOW 12/09/21 13:59 Urine Clarity HAZY (CLEAR) 12/09/21 13:59 Urine pH 5.5 PH (5.0-7.5) 12/09/21 13:59 Ur Specific [place] >=1.030 (1.002-1.030) H 12/09/21 13:59 Urine Protein >=300 mg/dL (NEGATIVE) H 12/09/21 13:59 Urine Glucose (UA) NEGATIVE mg/dL (NEGATIVE) 12/09/21 13:59 Urine Ketones NEGATIVE mg/dL (NEGATIVE) 12/09/21 13:59 Urine Occult Blood MODERATE (NEGATIVE) H 12/09/21 13:59 Urine Nitrite NEGATIVE (NEGATIVE) 12/09/21 13:59 Urine Bilirubin NEGATIVE (NEGATIVE) 12/09/21 13:59 Urine Urobilinogen 0.2 (NORMAL) E.U./dL (NORMAL) 12/09/21 13:59 Ur Leukocyte Esterase NEGATIVE (NEGATIVE) 12/09/21 13:59 Urine RBC 11-25 /HPF (0-5) H 12/09/21 13:59 Urine WBC 6-10 /HPF (0-3) H 12/09/21 13:59 Ur Squamous Epith Cells RARE Squamous (<= Few) 12/09/21 13:59 Urine Bacteria Moderate /HPF (None Seen) H 12/09/21 13:59 Urine Casts 3-5 Granular Casts /LPF 12/09/21 13:59 Ur Microscopic Review INDICATED 12/09/21 13:59 Urine Culture Comments NOT INDICATED 12/09/21 13:59 Nasal Adenovirus (PCR) NOT DETECTED 12/09/21 13:59 Nasal B. parapertussis DNA (PCR) NOT DETECTED 12/09/21 13:59 Nasal Coronavir 229E PCR NOT DETECTED 12/09/21 13:59 Nasal Coronavir HKU1 PCR NOT DETECTED 12/09/21 13:59 Nasal Coronavir NL63 PCR NOT DETECTED 12/09/21 13:59 Nasal Coronavir OC43 PCR NOT DETECTED 12/09/21 13:59 Nasal Enterovir/Rhinovir PCR NOT DETECTED 12/09/21 13:59 Nasal Influenza B PCR NOT DETECTED 12/09/21 13:59 Nasal Influenza A PCR NOT DETECTED 12/09/21 13:59 Nasal Parainfluen 1 PCR NOT DETECTED 12/09/21 13:59 Nasal Parainfluen 2 PCR NOT DETECTED 12/09/21 13:59 Nasal Parainfluen 3 PCR NOT DETECTED 12/09/21 13:59 Nasal Parainfluen 4 PCR NOT DETECTED 12/09/21 13:59 Nasal RSV (PCR) NOT DETECTED 12/09/21 13:59 Nasal B.pertussis DNA PCR NOT DETECTED 12/09/21 13:59 Nasal C.pneumoniae (PCR) NOT DETECTED 12/09/21 13:59 [place] Human Metapneumo PCR NOT DETECTED 12/09/21 13:59 Nasal M.pneumoniae (PCR) NOT DETECTED 12/09/21 13:59 Nasal SARS-CoV-2 (PCR) NOT DETECTED 12/09/21 13:59 Last Dose Date Not Reportable 12/20/21 12:00 Last Dose Time Not Reportable 12/20/21 12:00 Urine Opiates Screen NEGATIVE (NEGATIVE) 12/09/21 13:59 Ur Oxycodone Screen NEGATIVE (NEGATIVE) 12/09/21 13:59 Urine Methadone Screen NEGATIVE (NEGATIVE) 12/09/21 13:59 Ur Propoxyphene Screen NEGATIVE (NEGATIVE) 12/09/21 13:59 Ur Barbiturates Screen NEGATIVE (NEGATIVE) 12/09/21 13:59 Valproic Acid 31.0 ug/mL 12/20/21 12:00 Ur Tricyclics Screen NEGATIVE (NEGATIVE) 12/09/21 13:59 Levetiracetam 20.5 ug/mL (10.0-40.0) 12/20/21 12:00 Ur Phencyclidine Scrn NEGATIVE (NEGATIVE) 12/09/21 13:59 Ur Amphetamine Screen NEGATIVE (NEGATIVE) 12/09/21 13:59 U Methamphetamines Scrn NEGATIVE (NEGATIVE) 12/09/21 13:59 U Benzodiazepines Scrn NEGATIVE (NEGATIVE) 12/09/21 13:59 Urine Cocaine Screen NEGATIVE (NEGATIVE) 12/09/21 13:59 U Cannabinoids Screen NEGATIVE (NEGATIVE) 12/09/21 13:59 - Procedures Procedures: Procedures [facility] (04/17/14)
[2022-01-12] MEDS: ATORVASTATIN 40 MG TABLET PO SCH (22:11)
[2022-01-13] MEDS: SODIUM CHLORIDE FLUSH 0.9% 10 ML SYRINGE IVP SCH ×4 (00:03→16:24)
[2022-01-13] MEDS: CARBIDOPA/LEVODOPA 25 MG/250 MG TABLET PO SCH ×4 (01:52→21:26)
[2022-01-13] MEDS: PANTOPRAZOLE 40 MG TABLET PO SCH (06:31)
[2022-01-13] MEDS: DIVALPROEX ER 250 MG TABLET PO SCH ×2 (09:03→21:26)
[2022-01-13] MEDS: TAMSULOSIN 0.4 MG CAPSULE PO SCH (09:04)
[2022-01-13] MEDS: diltiaZEM CD 180 MG CAPSULE PO SCH (09:04)
[2022-01-13] MEDS: MAGNESIUM OXIDE 400 MG TABLET PO SCH (09:04)
[2022-01-13] MEDS: MULTIVITAMIN TABLET PO SCH (09:05)
[2022-01-13] MEDS: APIXABAN 2.5 MG TABLET PO SCH ×2 (09:05→21:26)
[2022-01-13] MEDS: calcitrioL 0.25 MCG CAPSULE PO SCH (09:05)
[2022-01-13] MEDS: polyethylene glycoL 3350 17 GM PACKET PO SCH (09:06)
[2022-01-13] MEDS: INSULIN ASPART 300 UNIT/3 ML PEN SUBQ SCH ×4 (09:06→21:25)
[2022-01-13] MEDS: FLUTICASONE NASAL SPRAY NAS SCH (09:06)
[2022-01-13] MEDS: levETIRAcetam 250 MG TABLET PO SCH ×2 (09:06→21:26)
[2022-01-13] MEDS: ENTACAPONE 200 MG TABLET PO SCH ×2 (10:26→21:26)
[2022-01-13] MEDS ORDERED: SODIUM CHLORIDE FLUSH 0.9% 10 ML SYRINGE IVP PRN (12:09)
[2022-01-13 12:51] LABS: BILIRUBIN,URINE NEGATIVE (NEGATIVE); GLUCOSE, URINE (UA) NEGATIVE (NEGATIVE); KETONES,URINE (UA) NEGATIVE (NEGATIVE); LEUKOCYTE ESTERASE, URINE NEGATIVE (NEGATIVE); NITRITE,URINE NEGATIVE (NEGATIVE); OCCULT BLOOD,URINE NEGATIVE (NEGATIVE); PH,URINE 5.5 PH (5.0-7.5); PROTEIN,URINE 100 mg/dL (NEGATIVE); UROBILINOGEN,URINE 0.2 (NORMAL) E.U./dL (NORMAL)
[2022-01-13 13:03] LABS: BACTERIA,URINE None Seen /HPF (None Seen); CLARITY,URINE CLEAR (CLEAR); RBC,URINE 0-5 /HPF (0-5); SQUAMOUS EPITHELIAL CELL,UR FEW Squamous (<= Few); WBC,URINE 0-3 /HPF (0-3)
--- NOTE | 2022-01-13 13:06 | XRAY Report ---
PROCEDURE: Chest 1 View X-Ray INDICATIONS: Wet cough, new TECHNIQUE: One view of the chest was acquired. COMPARISON: 12/09/2021 FINDINGS: Surgical changes and devices: None. Lungs and pleura: No pleural effusions or pneumothorax. Lungs are clear. Mediastinum: Mediastinal contours appear normal. Heart size is normal. Bones and chest wall: No suspicious bony lesions. Overlying soft tissues appear unremarkable. IMPRESSION: No evidence acute pulmonary process. Reviewed by: Jack Nicole MD on 01/13/2022 1:04 PM PDT Approved by: Jack Nicole MD on 01/13/2022 1:04 PM PDT Station ID: [id number]
[2022-01-13] MEDS: ACETAMINOPHEN/CODEINE 300 MG/30 MG TABLET PO PRN (13:09)
[2022-01-13 15:23] LABS: CALCIUM 9.3 mg/dL (8.5-10.3); CREATININE 4.9 mg/dL (0.6-1.2); POTASSIUM 4.4 mmol/L (3.5-5.0)
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
[2022-01-13] MEDS: ATORVASTATIN 40 MG TABLET PO SCH (21:26)
[2022-01-14] MEDS: SODIUM CHLORIDE FLUSH 0.9% 10 ML SYRINGE IVP SCH ×6 (00:24→16:39)
[2022-01-14] MEDS: CARBIDOPA/LEVODOPA 25 MG/250 MG TABLET PO SCH ×4 (01:08→21:58)
[2022-01-14 05:27] LABS: CALCIUM 9.3 mg/dL (8.5-10.3); CREATININE 4.5 mg/dL (0.6-1.2); POTASSIUM 4.2 mmol/L (3.5-5.0)
[2022-01-14] MEDS: DIVALPROEX ER 250 MG TABLET PO SCH ×2 (08:59→21:58)
[2022-01-14] MEDS: levETIRAcetam 250 MG TABLET PO SCH ×2 (09:00→21:59)
[2022-01-14] MEDS: MULTIVITAMIN TABLET PO SCH (09:00)
[2022-01-14] MEDS: diltiaZEM CD 180 MG CAPSULE PO SCH (09:00)
[2022-01-14] MEDS: APIXABAN 2.5 MG TABLET PO SCH ×2 (09:01→21:58)
[2022-01-14] MEDS: TAMSULOSIN 0.4 MG CAPSULE PO SCH (09:01)
[2022-01-14] MEDS: polyethylene glycoL 3350 17 GM PACKET PO SCH (09:02)
[2022-01-14] MEDS: calcitrioL 0.25 MCG CAPSULE PO SCH (09:02)
[2022-01-14] MEDS: FLUTICASONE NASAL SPRAY NAS SCH (09:02)
[2022-01-14] MEDS: ENTACAPONE 200 MG TABLET PO SCH ×2 (09:03→21:58)
[2022-01-14] MEDS: INSULIN ASPART 300 UNIT/3 ML PEN SUBQ SCH ×4 (10:09→21:58)
--- NOTE | 2022-01-14 14:49 | PROVIDER PROGRESS NOTE ---
Assessment/Plan - Problem List (1) Confusion Assessment/Plan: He could not remember me from approx a week ago. The patient's medication list was reviewed yesterday. Also yesterda, there was also contact made with a Nephrology at the [facility] in [place] (Dr. Amado) and a [facility] at [facility] (Dr Garza, who is partner of this patient's Corn Popper, Dr Saba). We reviewed his recent labs and even with the BUN up to 70, since the pt is not hyperkalemic or acidotic or volume overloaded, no dialysis (or transfer) is needed yet. We stopped his as needed Ativan. We stopped his Protonix which may also add to confusion. Will consider decreasing his two antiseizure meds, which can both add to l ethargy (2) CKD (chronic kidney disease) stage 4, GFR 15-29 ml/min Impression: Last creatinine was 4.5 which is a little above his baseline of 3.8-4. He has a 6-week matured AV fistula in preparation for dialysis someday. A chest x-ray was obtained because of his complaint of a new cough. This showed no acute changes. We will check labs several times a week to ensure his kidney function is stable. (3) Seizure disorder Assessment/Plan: This has been stable on the current dose of Keppra 250 mg BID plus Depakote. This will be continued. Will consider decreasing his two antiseizure meds, which can both add to lethargy He is pending permanent placement, SW is working on this. (4) Atrial fibrillation Impression: HR is controlled on diltiazem. We are also continuing Eliquis for anticoagulation. Qualifiers: Atrial fibrillation type: longstanding persistent Qualified Code(s): I48.11 - Longstanding persistent atrial fibrillation (5) Parkinson disease Impression: He has some amount of dementia as well, had a cognitive eval earlier this hospitalization and scored below normal. We are working on disposition for correction placement since it is not a safe discharge for his to live alone. Continue Sinemet. (6) Dementia Impression: He probably has Parkinson's dementia. He had a cognitive eval done earlier this hospitalization and scored below normal, is unable to care for himself or make safe decisions and cannot live at home alone safely. A DMV form was submitted previously for no driving and he was previously notified. Today he said he understands why no more driving. I had told him previously, that it is also not safe to use his guns. (7) HYDABURG (hard of hearing) Impression: We continue to communicate with writing as he is quite hard of hearing and no available batteries fit his hearing aid. He was noted on 2 occasions to be speaking to his DPOA on a cell phone, but told me it is very hard to hear him. We are still trying to get him an appropriate battery for his hearing aide. (8) Type 2 diabetes mellitus Impression: His blood glucose has been well controlled on a carb controlled diet with sliding scale. His A1c was 6.4%. - Current Meds Current Meds: Current Medications Generic Name Dose Route Start Last Admin Trade Name Freq PRN Reason Stop Dose Admin Acetaminophen 650 mg 12/09/21 15:00 01/10/22 20:32 Acetaminophen 325 Mg Tablet PO 650 mg Q4HR PRN Administration Pain 1 to 4, or Fever Acetaminophen/Codeine Phosphate 0.5 tab 01/06/22 18:15 01/13/22 13:09 Acetaminophen/Codeine 300 Mg/30 Mg Tablet PO 0.5 tab BID PRN Administration Severe Pain Apixaban 2.5 mg 12/12/21 21:00 01/14/22 09:01 Apixaban 2.5 Mg Tablet PO 2.5 mg BID PEREZ Administration Atorvastatin Calcium 40 mg 12/10/21 21:00 01/13/22 21:26 Atorvastatin 40 Mg Tablet PO 40 mg QPM PEREZ Administration Calcitriol 0.5 mcg 12/11/21 09:00 01/14/22 09:02 Calcitriol 0.25 Mcg Capsule PO 0.5 mcg DAILY PEREZ Administration Carbidopa/Levodopa 2 tab 12/10/21 15:00 01/14/22 13:50 Carbidopa/Levodopa 25 Mg/250 Mg Tablet PO 2 tab 0200,0800,1400,2000 PEREZ Administration Diltiazem HCl 180 mg 12/11/21 09:00 01/14/22 09:00 Diltiazem Cd 180 Mg Capsule PO 180 mg DAILY PEREZ Administration Divalproex Sodium 500 mg 12/13/21 09:00 01/14/22 08:59 Divalproex Er 250 Mg Tablet PO 500 mg BID PEREZ Administration Entacapone 200 mg 12/10/21 21:00 01/14/22 09:03 Entacapone 200 Mg Tablet PO Not Given BID PEREZ Fluticasone Propionate 1 sprays 12/11/21 09:00 01/14/22 09:02 Fluticasone Nasal [place] TAWANDA 1 spr DAILY PEREZ Administration Insulin Aspart 1 - 5 unit 12/09/21 17:00 01/14/22 11:20 Insulin Aspart 300 Unit/3 Ml Pen SUBQ 1 unit 0800,1200,1700,2100 PEREZ Administration Protocol Levetiracetam 250 mg 12/30/21 22:27 01/13/22 21:26 Levetiracetam 250 Mg Tablet PO 250 mg QPM PEREZ Administration Levetiracetam 250 mg 01/01/22 09:00 01/14/22 09:00 Levetiracetam 250 Mg Tablet PO 250 mg DAILY PEREZ Administration Lidocaine 1 patch 12/12/21 14:19 01/11/22 10:12 Lidocaine Patch 5% TOP 1 patch DAILY PRN Administration PAIN Multivitamins 1 tab 12/11/21 08:00 01/14/22 09:00 Multivitamin Tablet PO 1 tab DAILYWM PEREZ Administration Polyethylene Glycol 17 gm 12/17/21 09:00 01/14/22 09:02 Polyethylene Glycol 3350 17 Gm Packet PO Not Given DAILY PEREZ Senna 8.6 mg 12/10/21 14:29 12/18/21 09:00 Senna 8.6 Mg Tablet PO 8.6 mg DAILY PRN Administration Constipation Sodium Chloride 10 ml 01/06/22 14:04 01/06/22 09:30 Sodium Chloride Flush 0.9% 10 Ml Syringe IVP 10 ml PRN PRN Administration NEEDED PER PROVIDER ORDERS Sodium Chloride 10 ml 01/06/22 17:00 01/14/22 09:02 Sodium Chloride Flush 0.9% 10 Ml Syringe IVP 10 ml 0100,0900,1700 PEREZ Administration Sodium Chloride 10 ml 01/13/22 17:00 01/14/22 10:09 Sodium Chloride Flush 0.9% 10 Ml Syringe IVP 10 ml 0100,0900,1700 PEREZ Administration Tamsulosin HCl 0.4 mg 12/11/21 09:00 01/14/22 09:01 Tamsulosin 0.4 Mg Capsule PO 0.4 mg DAILY PEREZ Administration - Lab Result Fish Bone Diagrams: 01/12/22 05:55 01/15/22 04:22 - Additional Planning My Orders: My Active Orders 01/13/22 17:00 Sodium Chloride Flush 0.9% [Normal Saline Flush 0.9%] 10 ml IVP 0100,0900,1700 01/15/22 05:00 BMP - BASIC METABOLIC PANEL [CHEM] DAILYLAB 01/16/22 05:00 BMP - BASIC METABOLIC PANEL [CHEM] DAILYLAB 01/17/22 05:00 BMP - BASIC METABOLIC PANEL [CHEM] DAILYLAB 01/18/22 05:00 BMP - BASIC METABOLIC PANEL [CHEM] DAILYLAB Subjective - Subjective Patient Reports: Resting Comfortably Nursing Reports: Other (He did work with PT today and progressed) Objective Vital Signs: Vital Signs - 24 hr 01/13/22 01/13/22 01/14/22 16:20 21:00 00:14 Temperature 36.6 C 36.7 C 36.5 C Heart Rate [ 85 61 68 Brachial] Respiratory 16 16 12 Rate Blood Pressure 127/86 H 138/68 H 160/65 H [Left Brachial artery] O2 Saturation 98 100 99 01/14/22 01/14/22 01/14/22 05:00 07:35 12:33 Temperature 36.4 C L 36.4 C L Heart Rate [ 78 76 84 Brachial] Respiratory 16 16 18 Rate Blood Pressure 113/62 140/81 H 121/64 [Left Brachial artery] O2 Saturation 97 100 100 Oxygen O2 Source Room air I&O (Last 24 Hrs): Intake and Output Totals x24h 01/12/22 01/13/22 01/14/22 23:59 23:59 23:59 Intake Total 1257 1570 1470 Output Total 600 1225 800 Balance 657 345 670 General: Alert HEENT: Mucous membr. moist/pink Neck: Supple Neuro: Alert, Disoriented, Other (HYDABURG) Cardiovascular: Regular rate Respiratory: No respiratory distress Abdomen: Soft Extremities: No edema, No tenderness/swelling - Results Results: Laboratory Results WBC 5.4 x10^3/uL (4.8-10.8) 01/12/22 05:55 RBC 3.11 10^6/uL (4.70-6.10) L 01/12/22 05:55 Hgb 9.6 g/dL (14.0-18.0) L 01/12/22 05:55 Hct 29.1 % (42.0-52.0) L 01/12/22 05:55 MCV 93.6 fL (80.0-94.0) 01/12/22 05:55 MCH 30.9 pg (27.0-31.0) 01/12/22 05:55 MCHC 33.0 g/dL (32.0-36.0) 01/12/22 05:55 RDW 15.3 % (12.0-15.0) H 01/12/22 05:55 Plt Count 170 10^3/uL (130-450) 01/12/22 05:55 MPV 12.0 fL (7.4-11.4) H 01/12/22 05:55 Neut # (Auto) 3.4 10^3/uL (1.5-6.6) 01/12/22 05:55 Lymph # (Auto) 1.2 10^3/uL (1.5-3.5) L 01/12/22 05:55 [place] # (Auto) 0.6 10^3/uL (0.0-1.0) 01/12/22 05:55 Eos # (Auto) 0.1 10^3/uL (0.0-0.7) 01/12/22 05:55 Baso # (Auto) 0.0 10^3/uL (0.0-0.1) 01/12/22 05:55 Absolute Nucleated RBC 0.00 x10^3/uL 01/12/22 05:55 Nucleated RBC % 0.0 /100WBC 01/12/22 05:55 APTT 28.1 secs (24.9-33.3) 12/10/21 09:50 Sodium 135 mmol/L (135-145) 01/14/22 04:49 Potassium 4.2 mmol/L (3.5-5.0) 01/14/22 04:49 Chloride 102 mmol/L (101-111) 01/14/22 04:49 Carbon Dioxide 25 mmol/L (21-32) 01/14/22 04:49 Anion Gap 8.0 (6-13) 01/14/22 04:49 BUN 72 mg/dL (6-20) H 01/14/22 04:49 Creatinine 4.5 mg/dL (0.6-1.2) H 01/14/22 04:49 Estimated GFR (MDRD) 13 (>89) L 01/14/22 04:49 Glucose 121 mg/dL (70-100) H 01/14/22 04:49 POC Whole Bld Glucose 160 mg/dL (70 - 100) H 01/14/22 11:05 Estimat Average Glucose 137 mg/dL (70-100) H 12/10/21 04:35 Hemoglobin A1c % 6.4 % (4.27-6.07) H 12/10/21 04:35 Calcium 9.3 mg/dL (8.5-10.3) 01/14/22 04:49 Phosphorus 4.1 mg/dL (2.5-4.6) 12/16/21 05:54 Magnesium 1.8 mg/dL (1.7-2.8) 12/21/21 17:27 Total Bilirubin 1.8 mg/dL (0.2-1.0) H 12/09/21 12:56 AST 13 IU/L (10-42) 12/09/21 12:56 ALT < 10 IU/L (10-60) L 12/09/21 12:56 Alkaline Phosphatase 60 IU/L (42-121) 12/09/21 12:56 Total Creatine Kinase 51 IU/L (22-269) 12/09/21 12:56 Troponin I High Sens 33.5 ng/L (2.3-19.7) H* 12/09/21 19:01 Total Protein 7.4 g/dL (6.7-8.2) 12/09/21 12:56 Albumin 4.1 g/dL (3.2-5.5) 12/09/21 12:56 Globulin 3.3 g/dL (2.1-4.2) 12/09/21 12:56 Albumin/Globulin Ratio 1.2 (1.0-2.2) 12/09/21 12:56 Lipase 35 U/L (22-51) 12/09/21 12:56 Urine Color YELLOW 01/13/22 12:30 Urine Clarity CLEAR (CLEAR) 01/13/22 12:30 Urine pH 5.5 PH (5.0-7.5) 01/13/22 12:30 Ur Specific [place] 1.020 (1.002-1.030) 01/13/22 12:30 Urine Protein 100 mg/dL (NEGATIVE) H 01/13/22 12:30 Urine Glucose (UA) NEGATIVE mg/dL (NEGATIVE) 01/13/22 12:30 Urine Ketones NEGATIVE mg/dL (NEGATIVE) 01/13/22 12:30 Urine Occult Blood NEGATIVE (NEGATIVE) 01/13/22 12:30 Urine Nitrite NEGATIVE (NEGATIVE) 01/13/22 12:30 Urine Bilirubin NEGATIVE (NEGATIVE) 01/13/22 12:30 Urine Urobilinogen 0.2 (NORMAL) E.U./dL (NORMAL) 01/13/22 12:30 Ur Leukocyte Esterase NEGATIVE (NEGATIVE) 01/13/22 12:30 Urine RBC 0-5 /HPF (0-5) 01/13/22 12:30 Urine WBC 0-3 /HPF (0-3) 01/13/22 12:30 Ur Squamous Epith Cells FEW Squamous (<= Few) 01/13/22 12:30 Urine Bacteria None Seen /HPF (None Seen) 01/13/22 12:30 Urine Casts 3-5 Granular Casts /LPF 12/09/21 13:59 Ur Microscopic Review INDICATED 12/09/21 13:59 Urine Culture Comments NOT INDICATED 01/13/22 12:30 Nasal Adenovirus (PCR) NOT DETECTED 12/09/21 13:59 Nasal B. parapertussis DNA (PCR) NOT DETECTED 12/09/21 13:59 Nasal Coronavir 229E PCR NOT DETECTED 12/09/21 13:59 Nasal Coronavir HKU1 PCR NOT DETECTED 12/09/21 13:59 Nasal Coronavir NL63 PCR NOT DETECTED 12/09/21 13:59 Nasal Coronavir OC43 PCR NOT DETECTED 12/09/21 13:59 Nasal Enterovir/Rhinovir PCR NOT DETECTED 12/09/21 13:59 Nasal Influenza B PCR NOT DETECTED 12/09/21 13:59 Nasal Influenza A PCR NOT DETECTED 12/09/21 13:59 Nasal Parainfluen 1 PCR NOT DETECTED 12/09/21 13:59 Nasal Parainfluen 2 PCR NOT DETECTED 12/09/21 13:59 Nasal Parainfluen 3 PCR NOT DETECTED 12/09/21 13:59 Nasal Parainfluen 4 PCR NOT DETECTED 12/09/21 13:59 Nasal RSV (PCR) NOT DETECTED 12/09/21 13:59 Nasal B.pertussis DNA PCR NOT DETECTED 12/09/21 13:59 Nasal C.pneumoniae (PCR) NOT DETECTED 12/09/21 13:59 [place] Human Metapneumo PCR NOT DETECTED 12/09/21 13:59 Nasal M.pneumoniae (PCR) NOT DETECTED 12/09/21 13:59 Nasal SARS-CoV-2 (PCR) NOT DETECTED 12/09/21 13:59 Last Dose Date Not Reportable 12/20/21 12:00 Last Dose Time Not Reportable 12/20/21 12:00 Urine Opiates Screen NEGATIVE (NEGATIVE) 12/09/21 13:59 Ur Oxycodone Screen NEGATIVE (NEGATIVE) 12/09/21 13:59 Urine Methadone Screen NEGATIVE (NEGATIVE) 12/09/21 13:59 Ur Propoxyphene Screen NEGATIVE (NEGATIVE) 12/09/21 13:59 Ur Barbiturates Screen NEGATIVE (NEGATIVE) 12/09/21 13:59 Valproic Acid 31.0 ug/mL 12/20/21 12:00 Ur Tricyclics Screen NEGATIVE (NEGATIVE) 12/09/21 13:59 Levetiracetam 20.5 ug/mL (10.0-40.0) 12/20/21 12:00 Ur Phencyclidine Scrn NEGATIVE (NEGATIVE) 12/09/21 13:59 Ur Amphetamine Screen NEGATIVE (NEGATIVE) 12/09/21 13:59 U Methamphetamines Scrn NEGATIVE (NEGATIVE) 12/09/21 13:59 U Benzodiazepines Scrn NEGATIVE (NEGATIVE) 12/09/21 13:59 Urine Cocaine Screen NEGATIVE (NEGATIVE) 12/09/21 13:59 U Cannabinoids Screen NEGATIVE (NEGATIVE) 12/09/21 13:59 - Procedures Procedures: Procedures VENOUS CATHETERIZATION NEC (04/17/14)
[2022-01-14] MEDS: ATORVASTATIN 40 MG TABLET PO SCH (21:58)
[2022-01-15] MEDS: SODIUM CHLORIDE FLUSH 0.9% 10 ML SYRINGE IVP SCH ×6 (00:14→16:52)
[2022-01-15] MEDS: CARBIDOPA/LEVODOPA 25 MG/250 MG TABLET PO SCH ×4 (01:26→20:36)
[2022-01-15 05:15] LABS: CALCIUM 9.3 mg/dL (8.5-10.3); CREATININE 4.5 mg/dL (0.6-1.2); POTASSIUM 4.1 mmol/L (3.5-5.0)
[2022-01-15] MEDS: calcitrioL 0.25 MCG CAPSULE PO SCH (08:26)
[2022-01-15] MEDS: DIVALPROEX ER 250 MG TABLET PO SCH ×2 (08:27→20:36)
[2022-01-15] MEDS: diltiaZEM CD 180 MG CAPSULE PO SCH (08:27)
[2022-01-15] MEDS: MULTIVITAMIN TABLET PO SCH (08:27)
[2022-01-15] MEDS: APIXABAN 2.5 MG TABLET PO SCH ×2 (08:27→20:36)
[2022-01-15] MEDS: levETIRAcetam 250 MG TABLET PO SCH ×2 (08:28→20:36)
[2022-01-15] MEDS: TAMSULOSIN 0.4 MG CAPSULE PO SCH (08:28)
[2022-01-15] MEDS: polyethylene glycoL 3350 17 GM PACKET PO SCH (08:28)
[2022-01-15] MEDS: FLUTICASONE NASAL SPRAY NAS SCH (08:29)
[2022-01-15] MEDS: ENTACAPONE 200 MG TABLET PO SCH ×2 (08:29→20:37)
[2022-01-15] MEDS: INSULIN ASPART 300 UNIT/3 ML PEN SUBQ SCH ×4 (09:23→20:44)
--- NOTE | 2022-01-15 17:56 | PROVIDER PROGRESS NOTE ---
Assessment/Plan - Problem List (1) Confusion Assessment/Plan: Due to his confusion and rising BUN, recently, there was contact made with a Nephrology at the [facility] in [place] (Dr. Amado) and a Customs Port Director at [facility] (Dr Garza, who is partner of this patient's Customs Port Director, Dr Saba). We reviewed his recent labs and even with the BUN up to 70, since the pt is not hyperkalemic or acidotic or volume overloaded, no dialysis (or transfer) is needed yet. We stopped his as needed Ativan. We stopped his Protonix which may also add to confusion. Will consider decreasing his two antiseizure meds, which can both add to lethargy (2) CKD (chronic kidney disease) stage 4, GFR 15-29 ml/min Impression: His creatinine baseline is 3.8-4. He has a 6-7-week matured AV fistula, which was placed in preparation for dialysis someday. He did not need transfer several days ago, to start dialysis (as discussed in #1). A chest x-ray was obtained recently because of his complaint of a new cough. This showed no acute changes. We will check labs several times a week to ensure his kidney function is stable. (3) Seizure disorder Assessment/Plan: This has been stable on the current dose of Keppra 250 mg BID plus Depakote. T hese 2 meds will be continued. Will consider decreasing his two antiseizure med doses, however, since they can both add to lethargy He is pending permanent placement, SW is working on this. (4) Atrial fibrillation Impression: HR is controlled on diltiazem. We are also continuing Eliquis for anticoagulation. Qualifiers: Atrial fibrillation type: longstanding persistent Qualified Code(s): I48.11 - Longstanding persistent atrial fibrillation (5) Parkinson disease Impression: He has some amount of dementia as well as gait abnormality and stiffnes, but no tremor. He had a cognitive eval earlier this hospitalization and scored below normal. We are working on disposition for assisted placement since it is not a safe discharge for his to live alone. Continue Sinemet. (6) Dementia Impression: He probably has Parkinson's dementia. He had a cognitive eval done earlier this hospitalization and scored below normal, is unable to care for himself or make safe decisions and cannot live at home alone safely. A DMV form was submitted previously for no driving and he was previously notified. Today he said he understands why no more driving. I had also told him previously, that it is also not safe to use his guns. (7) BARROW (hard of hearing) Impression: We continue to communicate with writing as he is quite hard of hearing and no available batteries fit his hearing aid. He was noted on 2 occasions to be speaking to his DPOA on a cell phone, but told me it is very hard to hear him. We are still trying to get him an appropriate battery for his hearing aide. (8) Type 2 diabetes mellitus Impression: His blood glucose has been well controlled on a carb controlled diet with sliding scale. His A1c was 6.4%. - Current Meds Current Meds: Current Medications Generic Name Dose Route Start Last Admin Trade Name Freq PRN Reason Stop Dose Admin Acetaminophen 650 mg 12/09/21 15:00 01/10/22 20:32 Acetaminophen 325 Mg Tablet PO 650 mg Q4HR PRN Administration Pain 1 to 4, or Fever Acetaminophen/Codeine Phosphate 0.5 tab 01/06/22 18:15 01/13/22 13:09 Acetaminophen/Codeine 300 Mg/30 Mg Tablet PO 0.5 tab BID PRN Administration Severe Pain Apixaban 2.5 mg 12/12/21 21:00 01/15/22 08:27 Apixaban 2.5 Mg Tablet PO 2.5 mg BID PEREZ Administration Atorvastatin Calcium 40 mg 12/10/21 21:00 01/14/22 21:58 Atorvastatin 40 Mg Tablet PO 40 mg QPM PEREZ Administration Calcitriol 0.5 mcg 12/11/21 09:00 01/15/22 08:26 Calcitriol 0.25 Mcg Capsule PO 0.5 mcg DAILY PEREZ Administration Carbidopa/Levodopa 2 tab 12/10/21 15:00 01/15/22 13:31 Carbidopa/Levodopa 25 Mg/250 Mg Tablet PO 2 tab 0200,0800,1400,2000 PEREZ Administration Diltiazem HCl 180 mg 12/11/21 09:00 01/15/22 08:27 Diltiazem Cd 180 Mg Capsule PO 180 mg DAILY PEREZ Administration Divalproex Sodium 500 mg 12/13/21 09:00 01/15/22 08:27 Divalproex Er 250 Mg Tablet PO 500 mg BID PEREZ Administration Entacapone 200 mg 12/10/21 21:00 01/15/22 08:29 Entacapone 200 Mg Tablet PO Not Given BID [facility] Fluticasone Propionate 1 sprays 12/11/21 09:00 01/15/22 08:29 Fluticasone Nasal Lillie TAWANDA 1 spr DAILY PEREZ Administration Insulin Aspart 1 - 5 unit 12/09/21 17:00 01/15/22 16:51 Insulin Aspart 300 Unit/3 Ml Pen SUBQ Not Given 0800,1200,1700,2100 [facility] Protocol Levetiracetam 250 mg 12/30/21 22:27 01/14/22 21:59 Levetiracetam 250 Mg Tablet PO 250 mg QPM PEREZ Administration Levetiracetam 250 mg 01/01/22 09:00 01/15/22 08:28 Levetiracetam 250 Mg Tablet PO 250 mg DAILY PEREZ Administration Lidocaine 1 patch 12/12/21 14:19 01/11/22 10:12 Lidocaine Patch 5% TOP 1 patch DAILY PRN Administration PAIN Multivitamins 1 tab 12/11/21 08:00 01/15/22 08:27 Multivitamin Tablet PO 1 tab DAILYWM PEREZ Administration Polyethylene Glycol 17 gm 12/17/21 09:00 01/15/22 08:28 Polyethylene Glycol 3350 17 Gm Packet PO Not Given DAILY PEREZ Senna 8.6 mg 12/10/21 14:29 12/18/21 09:00 Senna 8.6 Mg Tablet PO 8.6 mg DAILY PRN Administration Constipation Sodium Chloride 10 ml 01/06/22 14:04 01/06/22 09:30 Sodium Chloride Flush 0.9% 10 Ml Syringe IVP 10 ml PRN PRN Administration NEEDED PER PROVIDER ORDERS Sodium Chloride 10 ml 01/06/22 17:00 01/15/22 16:51 Sodium Chloride Flush 0.9% 10 Ml Syringe IVP 10 ml 0100,0900,1700 PEREZ Administration Sodium Chloride 10 ml 01/13/22 17:00 01/15/22 16:52 Sodium Chloride Flush 0.9% 10 Ml Syringe IVP Not Given 0100,0900,1700 PEREZ Tamsulosin HCl 0.4 mg 12/11/21 09:00 01/15/22 08:28 Tamsulosin 0.4 Mg Capsule PO 0.4 mg DAILY PEREZ Administration - Lab Result Fish Bone Diagrams: 01/12/22 05:55 01/20/22 04:56 - Additional Planning My Orders: My Active Orders 01/16/22 05:00 BMP - BASIC METABOLIC PANEL [CHEM] DAILYLAB 01/17/22 05:00 BMP - BASIC METABOLIC PANEL [CHEM] DAILYLAB 01/18/22 05:00 BMP - BASIC METABOLIC PANEL [CHEM] DAILYLAB Subjective - Subjective Patient Reports: Resting Comfortably, No Complaints Objective Vital Signs: Vital Signs - 24 hr 01/14/22 01/15/22 01/15/22 20:34 01:58 07:43 Temperature 36.4 C L 36.5 C 36.7 C Heart Rate [ 67 78 94 Brachial] Respiratory 16 18 16 Rate Blood Pressure 158/76 H 160/87 H 136/81 H [Left Brachial artery] O2 Saturation 100 100 98 01/15/22 01/15/22 13:59 15:24 Temperature 36.9 C 36.4 C L Heart Rate [ 75 76 Brachial] Respiratory 16 18 Rate Blood Pressure 127/66 145/73 H [Left Brachial artery] O2 Saturation 98 97 Oxygen O2 Source Room air I&O (Last 24 Hrs): Intake and Output Totals x24h 01/13/22 01/14/22 01/15/22 23:59 23:59 23:59 Intake Total 1570 2428 890 Output Total 1225 1025 525 Balance 345 1403 365 General: Alert, Other (disoriented and poor memory) Neck: Supple Neuro: Alert, Disoriented Cardiovascular: No murmurs Respiratory: No respiratory distress Abdomen: No tenderness Extremities: No edema - Results Results: Laboratory Results WBC 5.4 x10^3/uL (4.8-10.8) 01/12/22 05:55 RBC 3.11 10^6/uL (4.70-6.10) L 01/12/22 05:55 Hgb 9.6 g/dL (14.0-18.0) L 01/12/22 05:55 Hct 29.1 % (42.0-52.0) L 01/12/22 05:55 MCV 93.6 fL (80.0-94.0) 01/12/22 05:55 MCH 30.9 pg (27.0-31.0) 01/12/22 05:55 MCHC 33.0 g/dL (32.0-36.0) 01/12/22 05:55 RDW 15.3 % (12.0-15.0) H 01/12/22 05:55 Plt Count 170 10^3/uL (130-450) 01/12/22 05:55 MPV 12.0 fL (7.4-11.4) H 01/12/22 05:55 Neut # (Auto) 3.4 10^3/uL (1.5-6.6) 01/12/22 05:55 Lymph # (Auto) 1.2 10^3/uL (1.5-3.5) L 01/12/22 05:55 [place] # (Auto) 0.6 10^3/uL (0.0-1.0) 01/12/22 05:55 Eos # (Auto) 0.1 10^3/uL (0.0-0.7) 01/12/22 05:55 Baso # (Auto) 0.0 10^3/uL (0.0-0.1) 01/12/22 05:55 Absolute Nucleated RBC 0.00 x10^3/uL 01/12/22 05:55 Nucleated RBC % 0.0 /100WBC 01/12/22 05:55 APTT 28.1 secs (24.9-33.3) 12/10/21 09:50 Sodium 135 mmol/L (135-145) 01/15/22 04:22 Potassium 4.1 mmol/L (3.5-5.0) 01/15/22 04:22 Chloride 103 mmol/L (101-111) 01/15/22 04:22 Carbon Dioxide 21 mmol/L (21-32) 01/15/22 04:22 Anion Gap 11.0 (6-13) 01/15/22 04:22 BUN 72 mg/dL (6-20) H 01/15/22 04:22 Creatinine 4.5 mg/dL (0.6-1.2) H 01/15/22 04:22 Estimated GFR (MDRD) 13 (>89) L 01/15/22 04:22 Glucose 102 mg/dL (70-100) H 01/15/22 04:22 POC Whole Bld Glucose 133 mg/dL (70 - 100) H 01/15/22 16:29 Estimat Average Glucose 137 mg/dL (70-100) H 12/10/21 04:35 Hemoglobin A1c % 6.4 % (4.27-6.07) H 12/10/21 04:35 Calcium 9.3 mg/dL (8.5-10.3) 01/15/22 04:22 Phosphorus 4.1 mg/dL (2.5-4.6) 12/16/21 05:54 Magnesium 1.8 mg/dL (1.7-2.8) 12/21/21 17:27 Total Bilirubin 1.8 mg/dL (0.2-1.0) H 12/09/21 12:56 AST 13 IU/L (10-42) 12/09/21 12:56 ALT < 10 IU/L (10-60) L 12/09/21 12:56 Alkaline Phosphatase 60 IU/L (42-121) 12/09/21 12:56 Total Creatine Kinase 51 IU/L (22-269) 12/09/21 12:56 Troponin I High Sens 33.5 ng/L (2.3-19.7) H* 12/09/21 19:01 Total Protein 7.4 g/dL (6.7-8.2) 12/09/21 12:56 Albumin 4.1 g/dL (3.2-5.5) 12/09/21 12:56 Globulin 3.3 g/dL (2.1-4.2) 12/09/21 12:56 Albumin/Globulin Ratio 1.2 (1.0-2.2) 12/09/21 12:56 Lipase 35 U/L (22-51) 12/09/21 12:56 Urine Color YELLOW 01/13/22 12:30 Urine Clarity CLEAR (CLEAR) 01/13/22 12:30 Urine pH 5.5 PH (5.0-7.5) 01/13/22 12:30 Ur Specific [place] 1.020 (1.002-1.030) 01/13/22 12:30 Urine Protein 100 mg/dL (NEGATIVE) H 01/13/22 12:30 Urine Glucose (UA) NEGATIVE mg/dL (NEGATIVE) 01/13/22 12:30 Urine Ketones NEGATIVE mg/dL (NEGATIVE) 01/13/22 12:30 Urine Occult Blood NEGATIVE (NEGATIVE) 01/13/22 12:30 Urine Nitrite NEGATIVE (NEGATIVE) 01/13/22 12:30 Urine Bilirubin NEGATIVE (NEGATIVE) 01/13/22 12:30 Urine Urobilinogen 0.2 (NORMAL) E.U./dL (NORMAL) 01/13/22 12:30 Ur Leukocyte Esterase NEGATIVE (NEGATIVE) 01/13/22 12:30 Urine RBC 0-5 /HPF (0-5) 01/13/22 12:30 Urine WBC 0-3 /HPF (0-3) 01/13/22 12:30 Ur Squamous Epith Cells FEW Squamous (<= Few) 01/13/22 12:30 Urine Bacteria None Seen /HPF (None Seen) 01/13/22 12:30 Urine Casts 3-5 Granular Casts /LPF 12/09/21 13:59 Ur Microscopic Review INDICATED 12/09/21 13:59 Urine Culture Comments NOT INDICATED 01/13/22 12:30 Nasal Adenovirus (PCR) NOT DETECTED 12/09/21 13:59 Nasal B. parapertussis DNA (PCR) NOT DETECTED 12/09/21 13:59 Nasal Coronavir 229E PCR NOT DETECTED 12/09/21 13:59 Nasal Coronavir HKU1 PCR NOT DETECTED 12/09/21 13:59 Nasal Coronavir NL63 PCR NOT DETECTED 12/09/21 13:59 Nasal Coronavir OC43 PCR NOT DETECTED 12/09/21 13:59 Nasal Enterovir/Rhinovir PCR NOT DETECTED 12/09/21 13:59 Nasal Influenza B PCR NOT DETECTED 12/09/21 13:59 Nasal Influenza A PCR NOT DETECTED 12/09/21 13:59 Nasal Parainfluen 1 PCR NOT DETECTED 12/09/21 13:59 Nasal Parainfluen 2 PCR NOT DETECTED 12/09/21 13:59 Nasal Parainfluen 3 PCR NOT DETECTED 12/09/21 13:59 Nasal Parainfluen 4 PCR NOT DETECTED 12/09/21 13:59 Nasal RSV (PCR) NOT DETECTED 12/09/21 13:59 Nasal B.pertussis DNA PCR NOT DETECTED 12/09/21 13:59 Nasal C.pneumoniae (PCR) NOT DETECTED 12/09/21 13:59 Tawanda Human Metapneumo PCR NOT DETECTED 12/09/21 13:59 Nasal M.pneumoniae (PCR) NOT DETECTED 12/09/21 13:59 Nasal SARS-CoV-2 (PCR) NOT DETECTED 12/09/21 13:59 Last Dose Date Not Reportable 12/20/21 12:00 Last Dose Time Not Reportable 12/20/21 12:00 Urine Opiates Screen NEGATIVE (NEGATIVE) 12/09/21 13:59 Ur Oxycodone Screen NEGATIVE (NEGATIVE) 12/09/21 13:59 Urine Methadone Screen NEGATIVE (NEGATIVE) 12/09/21 13:59 Ur Propoxyphene Screen NEGATIVE (NEGATIVE) 12/09/21 13:59 Ur Barbiturates Screen NEGATIVE (NEGATIVE) 12/09/21 13:59 Valproic Acid 31.0 ug/mL 12/20/21 12:00 Ur Tricyclics Screen NEGATIVE (NEGATIVE) 12/09/21 13:59 Levetiracetam 20.5 ug/mL (10.0-40.0) 12/20/21 12:00 Ur Phencyclidine Scrn NEGATIVE (NEGATIVE) 12/09/21 13:59 Ur Amphetamine Screen NEGATIVE (NEGATIVE) 12/09/21 13:59 U Methamphetamines Scrn NEGATIVE (NEGATIVE) 12/09/21 13:59 U Benzodiazepines Scrn NEGATIVE (NEGATIVE) 12/09/21 13:59 Urine Cocaine Screen NEGATIVE (NEGATIVE) 12/09/21 13:59 U Cannabinoids Screen NEGATIVE (NEGATIVE) 12/09/21 13:59 - Procedures Procedures: Procedures [facility] (04/17/14)
[2022-01-15] MEDS: ATORVASTATIN 40 MG TABLET PO SCH (20:36)
[2022-01-16] MEDS: SODIUM CHLORIDE FLUSH 0.9% 10 ML SYRINGE IVP SCH ×5 (01:20→17:05)
[2022-01-16] MEDS: CARBIDOPA/LEVODOPA 25 MG/250 MG TABLET PO SCH ×4 (01:45→21:13)
[2022-01-16 05:35] LABS: CALCIUM 9.7 mg/dL (8.5-10.3); CREATININE 4.8 mg/dL (0.6-1.2); POTASSIUM 4.1 mmol/L (3.5-5.0)
[2022-01-16] MEDS: INSULIN ASPART 300 UNIT/3 ML PEN SUBQ SCH ×4 (08:09→21:23)
[2022-01-16] MEDS: MULTIVITAMIN TABLET PO SCH (08:09)
[2022-01-16] MEDS: diltiaZEM CD 180 MG CAPSULE PO SCH (08:26)
[2022-01-16] MEDS: TAMSULOSIN 0.4 MG CAPSULE PO SCH (08:27)
[2022-01-16] MEDS: calcitrioL 0.25 MCG CAPSULE PO SCH (08:27)
[2022-01-16] MEDS: DIVALPROEX ER 250 MG TABLET PO SCH ×2 (08:27→21:13)
[2022-01-16] MEDS: ENTACAPONE 200 MG TABLET PO SCH ×2 (08:28→21:23)
[2022-01-16] MEDS: SENNA 8.6 MG TABLET PO PRN (08:28)
[2022-01-16] MEDS: levETIRAcetam 250 MG TABLET PO SCH ×2 (08:28→21:14)
[2022-01-16] MEDS: FLUTICASONE NASAL SPRAY NAS SCH (08:28)
[2022-01-16] MEDS: APIXABAN 2.5 MG TABLET PO SCH ×2 (08:28→21:13)
[2022-01-16] MEDS: polyethylene glycoL 3350 17 GM PACKET PO SCH (08:29)
--- NOTE | 2022-01-16 12:50 | PROVIDER PROGRESS NOTE ---
Assessment/Plan - Problem List (1) Confusion Assessment/Plan: Due to his confusion and rising BUN, several days ago, I reached out and spoke to to a Switch Inspector at the [place] [facility] [employer] (Dr. Amaod) and a Switch Inspector at [facility] (Dr Garza, who is partner of this patient's Switch Inspector, Dr Saba). We reviewed his recent labs and even with the BUN up to 70, since the pt is not hyperkalemic or acidotic or volume overloaded, no dialysis (or transfer) is needed yet. We stopped his as needed Ativan. We stopped his Protonix which may also add to confusion. Will consider decreasing his two antiseizure meds, which can both add to lethargy (2) CKD (chronic kidney disease) stage 4, GFR 15-29 ml/min Impression: His creatinine baseline is 3.8-4. He has a 6-7-week matured AV fistula, which was placed in preparation for dialysis someday. He did not need transfer several days ago, to start dialysis (as discussed in #1). A chest x-ray was obtained everal days ago, because of his complaint of a new cough. This showed no acute changes. We will check labs several times a week to ensure his kidney function is stable. (3) Seizure disorder Assessment/Plan: This has been stable on the current dose of Keppra 250 mg BID plus Depakote. These 2 meds will be continued. Will consider decreasing his two antiseizure med doses, however, since they can both add to lethargy He is pending permanent placement, SW is working on this. (4) Atrial fibrillation Impression: HR is controlled on diltiazem. We are also continuing Eliquis for anticoagulation. Qualifiers: Atrial fibrillation type: longstanding persistent Qualified Code(s): I48.11 - Longstanding persistent atrial fibrillation (5) Parkinson disease Impression: He has some amount of dementia as well as gait abnormality and stiffnes, but no tremor. He had a cognitive eval earlier this hospitalization and scored below normal. We are working on disposition for residential placement since it is not a safe discharge for his to live alone. Continue Sinemet. (6) Dementia Impression: He probably has Parkinson's dementia. He had a cognitive eval done earlier this hospitalization and scored below normal, is unable to care for himself or make safe decisions and cannot live at home alone safely. A DMV form was submitted previously for no driving and he was previously notified. Today he said he understands why no more driving. I had also told him previously, that it is not safe for him to use his guns, when he asked if he could take them to his LTC facility. (7) EYAK (hard of hearing) Impression: We continue to communicate with writing as he is quite hard of hearing and no available batteries fit his hearing aid. He was noted on 2 occasions to be speaking to his DPOA on a cell phone, but told me it is very hard to hear him. We are still trying to get him an appropriate battery for his hearing aide. (8) Type 2 diabetes mellitus Impression: His blood glucose has been well controlled on a carb controlled diet with sliding scale. His A1c was 6.4%. - Current Meds Current Meds: Current Medications Generic Name Dose Route Start Last Admin Trade Name Freq PRN Reason Stop Dose Admin Acetaminophen 650 mg 12/09/21 15:00 01/10/22 20:32 Acetaminophen 325 Mg Tablet PO 650 mg Q4HR PRN Administration Pain 1 to 4, or Fever Acetaminophen/Codeine Phosphate 0.5 tab 01/06/22 18:15 01/13/22 13:09 Acetaminophen/Codeine 300 Mg/30 Mg Tablet PO 0.5 tab BID PRN Administration Severe Pain Apixaban 2.5 mg 12/12/21 21:00 01/16/22 08:28 Apixaban 2.5 Mg Tablet PO 2.5 mg BID PEREZ Administration Atorvastatin Calcium 40 mg 12/10/21 21:00 01/15/22 20:36 Atorvastatin 40 Mg Tablet PO 40 mg QPM PEREZ Administration Calcitriol 0.5 mcg 12/11/21 09:00 01/16/22 08:27 Calcitriol 0.25 Mcg Capsule PO 0.5 mcg DAILY PREEZ Administration Carbidopa/Levodopa 2 tab 12/10/21 15:00 01/16/22 08:09 Carbidopa/Levodopa 25 Mg/250 Mg Tablet PO 2 tab 0200,0800,1400,2000 PEREZ Administration Diltiazem HCl 180 mg 12/11/21 09:00 01/16/22 08:26 Diltiazem Cd 180 Mg Capsule PO 180 mg DAILY PEREZ Administration Divalproex Sodium 500 mg 12/13/21 09:00 01/16/22 08:27 Divalproex Er 250 Mg Tablet PO 500 mg BID PEREZ Administration Entacapone 200 mg 12/10/21 21:00 01/16/22 08:28 Entacapone 200 Mg Tablet PO Not Given BID PEREZ Fluticasone Propionate 1 sprays 12/11/21 09:00 01/16/22 08:28 Fluticasone Nasal [place] TAWANDA 1 spr DAILY PEREZ Administration Insulin Aspart 1 - 5 unit 12/09/21 17:00 01/16/22 11:57 Insulin Aspart 300 Unit/3 Ml Pen SUBQ Not Given 0800,1200,1700,2100 [facility] Protocol Levetiracetam 250 mg 12/30/21 22:27 01/15/22 20:36 Levetiracetam 250 Mg Tablet PO 250 mg QPM PEREZ Administration Levetiracetam 250 mg 01/01/22 09:00 01/16/22 08:28 Levetiracetam 250 Mg Tablet PO 250 mg DAILY PEREZ Administration Lidocaine 1 patch 12/12/21 14:19 01/11/22 10:12 Lidocaine Patch 5% TOP 1 patch DAILY PRN Administration PAIN Multivitamins 1 tab 12/11/21 08:00 01/16/22 08:09 Multivitamin Tablet PO 1 tab DAILYWM PEREZ Administration Polyethylene Glycol 17 gm 12/17/21 09:00 01/16/22 08:29 Polyethylene Glycol 3350 17 Gm Packet PO Not Given DAILY PEREZ Senna 8.6 mg 12/10/21 14:29 01/16/22 08:28 Senna 8.6 Mg Tablet PO 8.6 mg DAILY PRN Administration Constipation Sodium Chloride 10 ml 01/06/22 14:04 01/06/22 09:30 Sodium Chloride Flush 0.9% 10 Ml Syringe IVP 10 ml PRN PRN Administration NEEDED PER PROVIDER ORDERS Sodium Chloride 10 ml 01/06/22 17:00 01/16/22 08:29 Sodium Chloride Flush 0.9% 10 Ml Syringe IVP 10 ml 0100,0900,1700 PEREZ Administration Sodium Chloride 10 ml 01/13/22 17:00 01/16/22 08:29 Sodium Chloride Flush 0.9% 10 Ml Syringe IVP 10 ml 0100,0900,1700 PEREZ Administration Tamsulosin HCl 0.4 mg 12/11/21 09:00 01/16/22 08:27 Tamsulosin 0.4 Mg Capsule PO 0.4 mg DAILY PEREZ Administration - Lab Result Fish Bone Diagrams: 01/12/22 05:55 01/20/22 04:56 - Additional Planning My Orders: My Active Orders 01/17/22 05:00 BMP - BASIC METABOLIC PANEL [CHEM] DAILYLAB 01/18/22 05:00 BMP - BASIC METABOLIC PANEL [CHEM] DAILYLAB Subjective - Subjective Patient Reports: Resting Comfortably, No Complaints Objective Vital Signs: Vital Signs - 24 hr 01/15/22 01/15/22 01/16/22 13:59 15:24 01:34 Temperature 36.9 C 36.4 C L 36.5 C Heart Rate [ 75 76 71 Brachial] Respiratory 16 18 18 Rate Blood Pressure 127/66 145/73 H [Left Brachial artery] Blood Pressure 137/75 H [Left Radial artery] O2 Saturation 98 97 97 01/16/22 01/16/22 01/16/22 05:29 08:22 12:04 Temperature 36.5 C 36.5 C 36.6 C Heart Rate [ 76 70 84 Brachial] Respiratory 18 16 16 Rate Blood Pressure 119/62 137/80 H 118/95 H [Left Brachial artery] Blood Pressure [Left Radial artery] O2 Saturation 98 97 98 Oxygen O2 Source Room air I&O (Last 24 Hrs): Intake and Output Totals x24h 01/14/22 01/15/22 01/16/22 23:59 23:59 23:59 Intake Total 2428 1250 540 Output Total 1025 525 200 Balance 1403 725 340 General: Alert HEENT: PERRLA, Mucous membr. moist/pink Neck: Supple Neuro: Alert, Disoriented, Other (Poor memory) Cardiovascular: No murmurs Respiratory: No respiratory distress Abdomen: No tenderness Extremities: No clubbing, No edema - Results Results: Laboratory Results WBC 5.4 x10^3/uL (4.8-10.8) 01/12/22 05:55 RBC 3.11 10^6/uL (4.70-6.10) L 01/12/22 05:55 Hgb 9.6 g/dL (14.0-18.0) L 01/12/22 05:55 Hct 29.1 % (42.0-52.0) L 01/12/22 05:55 MCV 93.6 fL (80.0-94.0) 01/12/22 05:55 MCH 30.9 pg (27.0-31.0) 01/12/22 05:55 MCHC 33.0 g/dL (32.0-36.0) 01/12/22 05:55 RDW 15.3 % (12.0-15.0) H 01/12/22 05:55 Plt Count 170 10^3/uL (130-450) 01/12/22 05:55 MPV 12.0 fL (7.4-11.4) H 01/12/22 05:55 Neut # (Auto) 3.4 10^3/uL (1.5-6.6) 01/12/22 05:55 Lymph # (Auto) 1.2 10^3/uL (1.5-3.5) L 01/12/22 05:55 [place] # (Auto) 0.6 10^3/uL (0.0-1.0) 01/12/22 05:55 Eos # (Auto) 0.1 10^3/uL (0.0-0.7) 01/12/22 05:55 Baso # (Auto) 0.0 10^3/uL (0.0-0.1) 01/12/22 05:55 Absolute Nucleated RBC 0.00 x10^3/uL 01/12/22 05:55 Nucleated RBC % 0.0 /100WBC 01/12/22 05:55 APTT 28.1 secs (24.9-33.3) 12/10/21 09:50 Sodium 137 mmol/L (135-145) 01/16/22 05:09 Potassium 4.1 mmol/L (3.5-5.0) 01/16/22 05:09 Chloride 102 mmol/L (101-111) 01/16/22 05:09 Carbon Dioxide 23 mmol/L (21-32) 01/16/22 05:09 Anion Gap 12.0 (6-13) 01/16/22 05:09 BUN 72 mg/dL (6-20) H 01/16/22 05:09 Creatinine 4.8 mg/dL (0.6-1.2) H 01/16/22 05:09 Estimated GFR (MDRD) 12 (>89) L 01/16/22 05:09 Glucose 122 mg/dL (70-100) H 01/16/22 05:09 POC Whole Bld Glucose 125 mg/dL (70 - 100) H 01/16/22 11:56 Estimat Average Glucose 137 mg/dL (70-100) H 12/10/21 04:35 Hemoglobin A1c % 6.4 % (4.27-6.07) H 12/10/21 04:35 Calcium 9.7 mg/dL (8.5-10.3) 01/16/22 05:09 Phosphorus 4.1 mg/dL (2.5-4.6) 12/16/21 05:54 Magnesium 1.8 mg/dL (1.7-2.8) 12/21/21 17:27 Total Bilirubin 1.8 mg/dL (0.2-1.0) H 12/09/21 12:56 AST 13 IU/L (10-42) 12/09/21 12:56 ALT < 10 IU/L (10-60) L 12/09/21 12:56 Alkaline Phosphatase 60 IU/L (42-121) 12/09/21 12:56 Total Creatine Kinase 51 IU/L (22-269) 12/09/21 12:56 Troponin I High Sens 33.5 ng/L (2.3-19.7) H* 12/09/21 19:01 Total Protein 7.4 g/dL (6.7-8.2) 12/09/21 12:56 Albumin 4.1 g/dL (3.2-5.5) 12/09/21 12:56 Globulin 3.3 g/dL (2.1-4.2) 12/09/21 12:56 Albumin/Globulin Ratio 1.2 (1.0-2.2) 12/09/21 12:56 Lipase 35 U/L (22-51) 12/09/21 12:56 Urine Color YELLOW 01/13/22 12:30 Urine Clarity CLEAR (CLEAR) 01/13/22 12:30 Urine pH 5.5 PH (5.0-7.5) 01/13/22 12:30 Ur Specific [place] 1.020 (1.002-1.030) 01/13/22 12:30 Urine Protein 100 mg/dL (NEGATIVE) H 01/13/22 12:30 Urine Glucose (UA) NEGATIVE mg/dL (NEGATIVE) 01/13/22 12:30 Urine Ketones NEGATIVE mg/dL (NEGATIVE) 01/13/22 12:30 Urine Occult Blood NEGATIVE (NEGATIVE) 01/13/22 12:30 Urine Nitrite NEGATIVE (NEGATIVE) 01/13/22 12:30 Urine Bilirubin NEGATIVE (NEGATIVE) 01/13/22 12:30 Urine Urobilinogen 0.2 (NORMAL) E.U./dL (NORMAL) 01/13/22 12:30 Ur Leukocyte Esterase NEGATIVE (NEGATIVE) 01/13/22 12:30 Urine RBC 0-5 /HPF (0-5) 01/13/22 12:30 Urine WBC 0-3 /HPF (0-3) 01/13/22 12:30 Ur Squamous Epith Cells FEW Squamous (<= Few) 01/13/22 12:30 Urine Bacteria None Seen /HPF (None Seen) 01/13/22 12:30 Urine Casts 3-5 Granular Casts /LPF 12/09/21 13:59 Ur Microscopic Review INDICATED 12/09/21 13:59 Urine Culture Comments NOT INDICATED 01/13/22 12:30 Nasal Adenovirus (PCR) NOT DETECTED 12/09/21 13:59 Nasal B. parapertussis DNA (PCR) NOT DETECTED 12/09/21 13:59 Nasal Coronavir 229E PCR NOT DETECTED 12/09/21 13:59 Nasal Coronavir HKU1 PCR NOT DETECTED 12/09/21 13:59 Nasal Coronavir NL63 PCR NOT DETECTED 12/09/21 13:59 Nasal Coronavir OC43 PCR NOT DETECTED 12/09/21 13:59 Nasal Enterovir/Rhinovir PCR NOT DETECTED 12/09/21 13:59 Nasal Influenza B PCR NOT DETECTED 12/09/21 13:59 Nasal Influenza A PCR NOT DETECTED 12/09/21 13:59 Nasal Parainfluen 1 PCR NOT DETECTED 12/09/21 13:59 Nasal Parainfluen 2 PCR NOT DETECTED 12/09/21 13:59 Nasal Parainfluen 3 PCR NOT DETECTED 12/09/21 13:59 Nasal Parainfluen 4 PCR NOT DETECTED 12/09/21 13:59 Nasal RSV (PCR) NOT DETECTED 12/09/21 13:59 Nasal B.pertussis DNA PCR NOT DETECTED 12/09/21 13:59 Nasal C.pneumoniae (PCR) NOT DETECTED 12/09/21 13:59 [place]anda Human Metapneumo PCR NOT DETECTED 12/09/21 13:59 Nasal M.pneumoniae (PCR) NOT DETECTED 12/09/21 13:59 Nasal SARS-CoV-2 (PCR) NOT DETECTED 12/09/21 13:59 Last Dose Date Not Reportable 12/20/21 12:00 Last Dose Time Not Reportable 12/20/21 12:00 Urine Opiates Screen NEGATIVE (NEGATIVE) 12/09/21 13:59 Ur Oxycodone Screen NEGATIVE (NEGATIVE) 12/09/21 13:59 Urine Methadone Screen NEGATIVE (NEGATIVE) 12/09/21 13:59 Ur Propoxyphene Screen NEGATIVE (NEGATIVE) 12/09/21 13:59 Ur Barbiturates Screen NEGATIVE (NEGATIVE) 12/09/21 13:59 Valproic Acid 31.0 ug/mL 12/20/21 12:00 Ur Tricyclics Screen NEGATIVE (NEGATIVE) 12/09/21 13:59 Levetiracetam 20.5 ug/mL (10.0-40.0) 12/20/21 12:00 Ur Phencyclidine Scrn NEGATIVE (NEGATIVE) 12/09/21 13:59 Ur Amphetamine Screen NEGATIVE (NEGATIVE) 12/09/21 13:59 U Methamphetamines Scrn NEGATIVE (NEGATIVE) 12/09/21 13:59 U Benzodiazepines Scrn NEGATIVE (NEGATIVE) 12/09/21 13:59 Urine Cocaine Screen NEGATIVE (NEGATIVE) 12/09/21 13:59 U Cannabinoids Screen NEGATIVE (NEGATIVE) 12/09/21 13:59 - Procedures Procedures: Procedures VENOUS CATHETERIZATION NEC (04/17/14)
[2022-01-16] MEDS: ACETAMINOPHEN 325 MG TABLET PO PRN (13:50)
[2022-01-16] MEDS: ATORVASTATIN 40 MG TABLET PO SCH (21:13)
[2022-01-17] MEDS: SODIUM CHLORIDE FLUSH 0.9% 10 ML SYRINGE IVP SCH ×3 (01:00→18:47)
[2022-01-17] MEDS: CARBIDOPA/LEVODOPA 25 MG/250 MG TABLET PO SCH ×4 (01:39→21:22)
[2022-01-17 06:31] LABS: CALCIUM 9.9 mg/dL (8.5-10.3); CREATININE 4.6 mg/dL (0.6-1.2)
[2022-01-17] MEDS: ACETAMINOPHEN 325 MG TABLET PO PRN ×2 (07:41→21:31)
[2022-01-17] MEDS: INSULIN ASPART 300 UNIT/3 ML PEN SUBQ SCH ×4 (08:10→21:24)
[2022-01-17] MEDS: MULTIVITAMIN TABLET PO SCH (08:10)
[2022-01-17] MEDS: TAMSULOSIN 0.4 MG CAPSULE PO SCH (08:10)
[2022-01-17] MEDS: polyethylene glycoL 3350 17 GM PACKET PO SCH (08:10)
[2022-01-17] MEDS: APIXABAN 2.5 MG TABLET PO SCH ×2 (08:11→21:23)
[2022-01-17] MEDS: levETIRAcetam 250 MG TABLET PO SCH ×2 (08:11→21:23)
[2022-01-17] MEDS: calcitrioL 0.25 MCG CAPSULE PO SCH (08:11)
[2022-01-17] MEDS: DIVALPROEX ER 250 MG TABLET PO SCH ×2 (08:11→21:23)
[2022-01-17] MEDS: diltiaZEM CD 180 MG CAPSULE PO SCH (08:11)
[2022-01-17] MEDS: FLUTICASONE NASAL SPRAY NAS SCH (08:12)
[2022-01-17] MEDS: ENTACAPONE 200 MG TABLET PO SCH ×2 (08:12→21:23)
[2022-01-17] MEDS: ACETAMINOPHEN/CODEINE 300 MG/30 MG TABLET PO PRN (12:12)
--- NOTE | 2022-01-17 16:49 | PROVIDER PROGRESS NOTE ---
Subjective - Prog Note Date Prog Note Date: 01/17/22 Prog Note Time: 16:48 - Subjective Pt reports feeling: Improved Subjective: Patient seen at bedside with no acute events other than complaining of hand pain right more than left as well as lower back pain. Patient has a history of gout and serum uric acid level was elevated is on allopurinol however he does have a history of CKD stage IV. Current Medications - Current Medications Current Medications: See MAR Objective - Vital Signs/Intake & Output Vital Signs: Vital Signs x48h Temp Pulse Resp BP Pulse Ox 01/17/22 15:37 36.6 C 65 20 136/75 H 98 01/17/22 13:00 36.2 C L 75 18 129/73 99 Intake & Output: Intake & Output 01/14/22 01/15/22 01/16/22 01/17/22 23:59 23:59 23:59 23:59 Intake Total 2428 1250 1650 690 Output Total 1025 525 550 200 Balance 4914 534 7696 490 - Objective General Appearance: positive: No acute distress, Alert Eyes Bilateral: positive: Normal inspection, PERRL, EOMI, No scleral icterus Neck: positive: Nml inspection, No JVD, Trachea midline Cardiovascular: positive: Regular rate & rhythm, No murmur, No gallop Peripheral Pulses: 2+ Radial (R), 2+ Radial (L), 2+ Dorsalis pedis (R), 2+ Dorsalis pedis (L) Abdomen: positive: Non-tender, No organomegaly, Nml bowel sounds Back: positive: Nml inspection Skin: positive: Color nml Extremities: positive: Full ROM, Pedal edema Neurologic/Psychiatric: positive: Oriented x3, Other (Hard of hearing and verbally communicates via marker and board.) - Lab Results Fish Bones: 01/12/22 05:55 01/17/22 06:18 Other Labs: Lab Results x24hrs 01/17/22 01/17/22 01/17/22 Range/Units 11:47 07:53 06:18 Sodium (135-145) mmol/L Potassium (3.5-5.0) mmol/L Chloride (101-111) mmol/L Carbon Dioxide (21-32) mmol/L Anion Gap (6-13) BUN (6-20) mg/dL Creatinine (0.6-1.2) mg/dL Estimated GFR (MDRD) (>89) Glucose (70-100) mg/dL POC Whole Bld Glucose 119 H 103 H (70 - 100) mg/dL Uric Acid 8.6 H (2.6-7.2) mg/dL Calcium (8.5-10.3) mg/dL 01/17/22 01/16/22 01/16/22 Range/Units 06:18 20:59 16:48 Sodium 138 (135-145) mmol/L Potassium 4.0 (3.5-5.0) mmol/L Chloride 105 (101-111) mmol/L Carbon Dioxide 20 L (21-32) mmol/L Anion Gap 13.0 (6-13) BUN 72 H (6-20) mg/dL Creatinine 4.6 H (0.6-1.2) mg/dL Estimated GFR (MDRD) 13 L (>89) Glucose 121 H (70-100) mg/dL POC Whole Bld Glucose 144 H 139 H (70 - 100) mg/dL Uric Acid (2.6-7.2) mg/dL Calcium 9.9 (8.5-10.3) mg/dL ABX Reporting Has patient been on IV antibiotics over the past 48 hours?: No Assessment/Plan - Problem List (1) Gout Impression: Patient with bilateral hand pain and serum uric acid elevated 8.6 and will start on colchicine 0.3 mg p.o. daily for 2 weeks and redraw uric acid. Patient remains on allopurinol. Renal adjustment provided by pharmacy.Unfortunately cannot be on NSAIDs given his CKD stage IV. (2) Confusion Impression: To be at baseline with underlying Parkinson's disease and without worsening confusion or seizure-like activity. (4) Type 2 diabetes mellitus Impression: Medical management (5) Atrial fibrillation Impression: Continue with current medical management Qualifiers: Atrial fibrillation type: longstanding persistent Qualified Code(s): I48.11 - Longstanding persistent atrial fibrillation (6) CKD (chronic kidney disease) stage 4, GFR 15-29 ml/min Impression: Continue with current medical management (7) Parkinson disease Impression: Continue with current medical management Patient is awaiting SNF placement via [employer]
[2022-01-17] MEDS: COLCHICINE 0.6 MG TABLET PO SCH (18:45)
[2022-01-17] MEDS: ATORVASTATIN 40 MG TABLET PO SCH (21:23)
[2022-01-18] MEDS: SODIUM CHLORIDE FLUSH 0.9% 10 ML SYRINGE IVP SCH ×4 (00:55→23:54)
[2022-01-18] MEDS: CARBIDOPA/LEVODOPA 25 MG/250 MG TABLET PO SCH ×4 (01:35→20:23)
[2022-01-18 07:17] LABS: CALCIUM 9.6 mg/dL (8.5-10.3); CREATININE 4.7 mg/dL (0.6-1.2); POTASSIUM 4.2 mmol/L (3.5-5.0)
[2022-01-18] MEDS: levETIRAcetam 250 MG TABLET PO SCH ×2 (08:01→20:23)
[2022-01-18] MEDS: APIXABAN 2.5 MG TABLET PO SCH ×2 (08:01→20:23)
[2022-01-18] MEDS: TAMSULOSIN 0.4 MG CAPSULE PO SCH (08:01)
[2022-01-18] MEDS: MULTIVITAMIN TABLET PO SCH (08:01)
[2022-01-18] MEDS: DIVALPROEX ER 250 MG TABLET PO SCH ×2 (08:01→20:23)
[2022-01-18] MEDS: polyethylene glycoL 3350 17 GM PACKET PO SCH (08:01)
[2022-01-18] MEDS: ACETAMINOPHEN/CODEINE 300 MG/30 MG TABLET PO PRN (08:01)
[2022-01-18] MEDS: calcitrioL 0.25 MCG CAPSULE PO SCH (08:01)
[2022-01-18] MEDS: diltiaZEM CD 180 MG CAPSULE PO SCH (08:01)
[2022-01-18] MEDS: FLUTICASONE NASAL SPRAY NAS SCH (08:02)
[2022-01-18] MEDS: ENTACAPONE 200 MG TABLET PO SCH ×2 (08:02→20:23)
[2022-01-18] MEDS: INSULIN ASPART 300 UNIT/3 ML PEN SUBQ SCH ×4 (08:02→21:13)
[2022-01-18] MEDS: LIDOCAINE PATCH 5% TOP PRN (08:03)
--- NOTE | 2022-01-18 11:49 | PROVIDER PROGRESS NOTE ---
Progress Note Patient without any acute overnight events. Receiving renal adjusted colchicine per pharmacy. Denies fevers, nausea, emesis, chest pain, GI or symptoms. O/E: VSS. Afebrile. CV/lungs: RRR. CTA BL Extremities/skin: Tenderness to MCP/DIP bilaterally without warmth and 2+ pulses dorsalis pedis w/ mild bipedal edema. A/P: (1) Gout Impression: Patient with bilateral hand pain and serum uric acid elevated 8.6 and will start on colchicine 0.3 mg p.o. daily for 2 weeks and redraw uric acid. Patient remains on allopurinol. Renal adjustment provided by pharmacy.Unfortunately cannot be on NSAIDs given his CKD stage IV. (2) Confusion Impression: To be at baseline with underlying Parkinson's disease and without worsening confusion or seizure-like activity. (4) Type 2 diabetes mellitus Impression: Medical management (5) Atrial fibrillation Impression: Continue with current medical management Qualifiers: Atrial fibrillation type: longstanding persistent Qualified Code(s): I48.11 - Longstanding persistent atrial fibrillation (6) CKD (chronic kidney disease) stage 4, GFR 15-29 ml/min Impression: Continue with current medical management (7) Parkinson disease Impression: Continue with current medical management Patient is awaiting SNF placement via [place] benefits
[2022-01-18] MEDS: ATORVASTATIN 40 MG TABLET PO SCH (20:23)
[2022-01-19] MEDS: CARBIDOPA/LEVODOPA 25 MG/250 MG TABLET PO SCH ×4 (01:30→21:06)
[2022-01-19] MEDS: ACETAMINOPHEN/CODEINE 300 MG/30 MG TABLET PO PRN ×2 (04:04→16:38)
[2022-01-19] MEDS: INSULIN ASPART 300 UNIT/3 ML PEN SUBQ SCH ×4 (08:27→21:05)
[2022-01-19] MEDS: DIVALPROEX ER 250 MG TABLET PO SCH ×2 (08:36→21:06)
[2022-01-19] MEDS: diltiaZEM CD 180 MG CAPSULE PO SCH (08:36)
[2022-01-19] MEDS: TAMSULOSIN 0.4 MG CAPSULE PO SCH (08:36)
[2022-01-19] MEDS: APIXABAN 2.5 MG TABLET PO SCH ×2 (08:36→21:06)
[2022-01-19] MEDS: MULTIVITAMIN TABLET PO SCH (08:36)
[2022-01-19] MEDS: levETIRAcetam 250 MG TABLET PO SCH ×2 (08:36→21:06)
[2022-01-19] MEDS: calcitrioL 0.25 MCG CAPSULE PO SCH (08:36)
[2022-01-19] MEDS: SODIUM CHLORIDE FLUSH 0.9% 10 ML SYRINGE IVP SCH ×3 (08:37→23:35)
[2022-01-19] MEDS: ENTACAPONE 200 MG TABLET PO SCH ×2 (08:37→21:06)
[2022-01-19] MEDS: FLUTICASONE NASAL SPRAY NAS SCH (08:37)
[2022-01-19] MEDS: polyethylene glycoL 3350 17 GM PACKET PO SCH (08:38)
--- NOTE | 2022-01-19 14:07 | PROVIDER PROGRESS NOTE ---
Progress Note Patient with no acute overnight events. Has had some bouts of agitation however alleviated with RN as patient was taken outside for stroll. O/E: VSS. Afebrile. CV/lungs: RRR. CTA BL Extremities/skin: Tenderness to MCP/DIP bilaterally without warmth and 2+ pulses dorsalis pedis w/ mild bipedal edema. A/P: (1) Gout Impression: Patient with bilateral hand pain and serum uric acid elevated 8.6 and will start on colchicine 0.3 mg p.o. daily for 2 weeks and redraw uric acid. Patient remains on allopurinol. Renal adjustment provided by pharmacy.Unfortunately cannot be on NSAIDs given his CKD stage IV. (2) Confusion Impression: To be at baseline with underlying Parkinson's disease and without worsening confusion or seizure-like activity. (4) Type 2 diabetes mellitus Impression: Medical management (5) Atrial fibrillation Impression: Continue with current medical management Qualifiers: Atrial fibrillation type: longstanding persistent Qualified Code(s): I48.11 - Longstanding persistent atrial fibrillation (6) CKD (chronic kidney disease) stage 4, GFR 15-29 ml/min Impression: Continue with current medical management (7) Parkinson disease Impression: Continue with current medical management Patient is awaiting SNF placement via [place] benefits
[2022-01-19] MEDS: ATORVASTATIN 40 MG TABLET PO SCH (21:06)
[2022-01-20] MEDS: CARBIDOPA/LEVODOPA 25 MG/250 MG TABLET PO SCH ×4 (01:27→20:15)
[2022-01-20] MEDS: ACETAMINOPHEN 325 MG TABLET PO PRN ×2 (01:28→23:43)
[2022-01-20 05:28] LABS: ALBUMIN 3.4 g/dL (3.2-5.5); CALCIUM 9.5 mg/dL (8.5-10.3); CREATININE 4.5 mg/dL (0.6-1.2); PHOSPHORUS 6.5 mg/dL (2.5-4.6); POTASSIUM 4.5 mmol/L (3.5-5.0)
[2022-01-20] MEDS ORDERED: hydrALAZINE 25 MG TABLET PO PRN (07:35)
[2022-01-20] MEDS: polyethylene glycoL 3350 17 GM PACKET PO SCH (07:55)
[2022-01-20] MEDS: SEVELAMER 800 MG TABLET PO SCH ×3 (07:55→16:53)
[2022-01-20] MEDS: MULTIVITAMIN TABLET PO SCH (07:56)
[2022-01-20] MEDS: calcitrioL 0.25 MCG CAPSULE PO SCH (07:56)
[2022-01-20] MEDS: TAMSULOSIN 0.4 MG CAPSULE PO SCH (07:56)
[2022-01-20] MEDS: DIVALPROEX ER 250 MG TABLET PO SCH ×2 (07:57→20:15)
[2022-01-20] MEDS: diltiaZEM CD 180 MG CAPSULE PO SCH (07:57)
[2022-01-20] MEDS: levETIRAcetam 250 MG TABLET PO SCH ×2 (07:58→20:15)
[2022-01-20] MEDS: DOCUSATE SODIUM 250 MG CAPSULE PO SCH (07:58)
[2022-01-20] MEDS: APIXABAN 2.5 MG TABLET PO SCH (07:59)
[2022-01-20] MEDS: INSULIN ASPART 300 UNIT/3 ML PEN SUBQ SCH ×4 (07:59→20:46)
[2022-01-20] MEDS: FLUTICASONE NASAL SPRAY NAS SCH (07:59)
[2022-01-20] MEDS: SODIUM CHLORIDE FLUSH 0.9% 10 ML SYRINGE IVP SCH ×3 (08:00→23:28)
[2022-01-20] MEDS: ENTACAPONE 200 MG TABLET PO SCH ×2 (08:00→20:16)
--- NOTE | 2022-01-20 10:11 | PROVIDER PROGRESS NOTE ---
Progress Note Patient with no acute overnight events. Patient is on colchicine as well as allopurinol at renal adjusted by pharmacy. Appears less agitated. O/E: VSS. Afebrile. CV/lungs: RRR. CTA BL Extremities/skin: Tenderness to MCP/DIP bilaterally without warmth and 2+ pulses dorsalis pedis w/ mild bipedal edema. A/P: (1) Gout Impression: Patient with bilateral hand pain and serum uric acid elevated 8.6 and placed on colchicine 0.3 mg p.o. q3d for 2 weeks and redraw uric acid. Patient remains on allopurinol. Renal adjustment provided by pharmacy.Unfortunately cannot be on NSAIDs given his CKD stage IV. (2) Confusion Impression: To be at baseline with underlying Parkinson's disease and without worsening confusion or seizure-like activity. (4) Type 2 diabetes mellitus Impression: Medical management (5) Atrial fibrillation Impression: Continue with current medical management Qualifiers: Atrial fibrillation type: longstanding persistent Qualified Code(s): I48.11 - Longstanding persistent atrial fibrillation (6) CKD (chronic kidney disease) stage 4, GFR 15-29 ml/min Impression: Patient with elevated BUN and creatinine but with normal electrolytes. Has hyperphosphatemia has gradually increased and will place on sevelamer for phosphate binding effect. Continue with current medical management (7) Parkinson disease Impression: Continue with current medical management Patient is awaiting SNF placement via [employer] benefits
[2022-01-20] MEDS: COLCHICINE 0.6 MG TABLET PO SCH (16:53)
[2022-01-20] MEDS: ATORVASTATIN 40 MG TABLET PO SCH (20:15)
[2022-01-20] MEDS: ACETAMINOPHEN/CODEINE 300 MG/30 MG TABLET PO PRN (20:15)
[2022-01-21] MEDS: CARBIDOPA/LEVODOPA 25 MG/250 MG TABLET PO SCH ×4 (02:30→20:14)
[2022-01-21] MEDS: polyethylene glycoL 3350 17 GM PACKET PO SCH (07:52)
[2022-01-21] MEDS: levETIRAcetam 250 MG TABLET PO SCH ×2 (07:53→20:14)
[2022-01-21] MEDS: DIVALPROEX ER 250 MG TABLET PO SCH ×2 (07:53→20:14)
[2022-01-21] MEDS: calcitrioL 0.25 MCG CAPSULE PO SCH (07:54)
[2022-01-21] MEDS: MULTIVITAMIN TABLET PO SCH (07:54)
[2022-01-21] MEDS: diltiaZEM CD 180 MG CAPSULE PO SCH (07:54)
[2022-01-21] MEDS: APIXABAN 2.5 MG TABLET PO SCH ×2 (07:54→20:14)
[2022-01-21] MEDS: SEVELAMER 800 MG TABLET PO SCH ×3 (07:55→17:25)
[2022-01-21] MEDS: DOCUSATE SODIUM 250 MG CAPSULE PO SCH (07:55)
[2022-01-21] MEDS: TAMSULOSIN 0.4 MG CAPSULE PO SCH (07:55)
[2022-01-21] MEDS: FLUTICASONE NASAL SPRAY NAS SCH (07:56)
[2022-01-21] MEDS: SODIUM CHLORIDE FLUSH 0.9% 10 ML SYRINGE IVP SCH ×2 (07:57→17:25)
[2022-01-21] MEDS: INSULIN ASPART 300 UNIT/3 ML PEN SUBQ SCH ×4 (07:57→21:23)
[2022-01-21] MEDS: ENTACAPONE 200 MG TABLET PO SCH ×2 (07:57→20:14)
--- NOTE | 2022-01-21 10:19 | PROVIDER PROGRESS NOTE ---
Progress Note Patient with no acute overnight events. Patient is on colchicine, renal adjusted by pharmacy. Hard of hearing. Stated to nurse previously that he is "used to hitting people since he was in the ". O/E: VSS. Afebrile. CV/lungs: RRR. CTA BL Extremities/skin: Tenderness to MCP/DIP bilaterally without warmth and 2+ pulses dorsalis pedis w/ mild bipedal edema. A/P: (1) Gout Impression: Patient with bilateral hand pain and serum uric acid elevated 8.6 and placed on colchicine 0.3 mg p.o. q3d for 2 weeks and redraw uric acid. Renal adjustment provided by pharmacy. Unfortunately cannot be on NSAIDs given his CKD stage IV. (2) Confusion Impression: To be at baseline with underlying Parkinson's disease and without worsening confusion or seizure-like activity. (4) Type 2 diabetes mellitus Impression: Medical management (5) Atrial fibrillation Impression: Continue with current medical management Qualifiers: Atrial fibrillation type: longstanding persistent Qualified Code(s): I48.11 - Longstanding persistent atrial fibrillation (6) CKD (chronic kidney disease) stage 4, GFR 15-29 ml/min Impression: Patient with elevated BUN and creatinine but with normal electrolytes. Has hyperphosphatemia has gradually increased and will place on sevelamer for phosphate binding effect.Renal panel monitoring given that he is on colchicine. Continue with current medical management (7) Parkinson disease Impression: Continue with current medical management Patient is awaiting SNF placement via [employer] benefits
[2022-01-21] MEDS ORDERED: GI COCKTAIL 120 ML BOTTLE PO PRN (11:49)
[2022-01-21] MEDS: PANTOPRAZOLE 40 MG TABLET PO SCH (11:54)
[2022-01-21] MEDS: ATORVASTATIN 40 MG TABLET PO SCH (20:14)
[2022-01-21] MEDS ORDERED: ZINC OXIDE 20% OINT 30 GM TUBE TOP PRN (21:40)
[2022-01-22] MEDS: SODIUM CHLORIDE FLUSH 0.9% 10 ML SYRINGE IVP SCH ×3 (01:39→18:03)
[2022-01-22] MEDS: CARBIDOPA/LEVODOPA 25 MG/250 MG TABLET PO SCH ×4 (01:39→20:59)
[2022-01-22 05:54] LABS: ALBUMIN 3.4 g/dL (3.2-5.5); CALCIUM 9.3 mg/dL (8.5-10.3); CREATININE 4.5 mg/dL (0.6-1.2); POTASSIUM 4.5 mmol/L (3.5-5.0); URIC ACID 8.1 mg/dL (2.6-7.2)
--- NOTE | 2022-01-22 06:52 | PROVIDER PROGRESS NOTE ---
Progress Note Patient with no acute overnight events. Patient is on colchicine, renal adjusted by pharmacy. Hard of hearing. Stated to nurse previously that he is "used to hitting people since he was in the ". O/E: VSS. Afebrile. CV/lungs: RRR. CTA BL Extremities/skin: Tenderness to MCP/DIP bilaterally without warmth and 2+ pulses dorsalis pedis w/ mild bipedal edema. A/P: (1) Gout Impression: Patient with bilateral hand pain and serum uric acid elevated 8.6>8.1 and placed on colchicine 0.3 mg p.o. q3d for 2 weeks. Renal adjustment provided by pharmacy. Unfortunately cannot be on NSAIDs given his CKD stage IV. (2) Confusion Impression: To be at baseline with underlying Parkinson's disease and without worsening confusion or seizure-like activity. (4) Type 2 diabetes mellitus Impression: Medical management (5) Atrial fibrillation Impression: Continue with current medical management Qualifiers: Atrial fibrillation type: longstanding persistent Qualified Code(s): I48.11 - Longstanding persistent atrial fibrillation (6) CKD (chronic kidney disease) stage 4, GFR 15-29 ml/min Impression: Patient with elevated BUN and creatinine but with normal electrolytes. Has hyperphosphatemia has gradually increased but now improved while on sevelamer for phosphate binding effect. Renal panel monitoring given that he is on colchicine. Continue with current medical management (7) Parkinson disease Impression: Continue with current medical management Patient is awaiting SNF placement via [employer] benefits
[2022-01-22] MEDS: polyethylene glycoL 3350 17 GM PACKET PO SCH (07:46)
[2022-01-22] MEDS: calcitrioL 0.25 MCG CAPSULE PO SCH (07:46)
[2022-01-22] MEDS: PANTOPRAZOLE 40 MG TABLET PO SCH (07:47)
[2022-01-22] MEDS: MULTIVITAMIN TABLET PO SCH (07:47)
[2022-01-22] MEDS: DOCUSATE SODIUM 250 MG CAPSULE PO SCH (07:48)
[2022-01-22] MEDS: TAMSULOSIN 0.4 MG CAPSULE PO SCH (07:48)
[2022-01-22] MEDS: diltiaZEM CD 180 MG CAPSULE PO SCH (07:48)
[2022-01-22] MEDS: levETIRAcetam 250 MG TABLET PO SCH ×2 (07:49→20:59)
[2022-01-22] MEDS: APIXABAN 2.5 MG TABLET PO SCH ×2 (07:49→20:59)
[2022-01-22] MEDS: SEVELAMER 800 MG TABLET PO SCH ×3 (07:49→18:01)
[2022-01-22] MEDS: DIVALPROEX ER 250 MG TABLET PO SCH ×2 (07:49→20:59)
[2022-01-22] MEDS: FLUTICASONE NASAL SPRAY NAS SCH (07:50)
[2022-01-22] MEDS: ENTACAPONE 200 MG TABLET PO SCH ×2 (07:52→20:59)
[2022-01-22] MEDS: INSULIN ASPART 300 UNIT/3 ML PEN SUBQ SCH ×4 (07:52→20:59)
[2022-01-22] MEDS: ACETAMINOPHEN/CODEINE 300 MG/30 MG TABLET PO PRN (15:44)
--- NOTE | 2022-01-22 18:41 | DISCHARGE SUMMARY ---
"Discharge Summary Admit Date: 12/09/21 Discharge Date: 01/23/22 Discharging Provider: Dr. Hercules Primary Care Provider: Vitor Erickson Code Status: Do Not Attempt Resuscitation Condition at Discharge: Good Discharge Facility Name: [facility] [place], [place] - DIAGNOSES Admission Diagnoses: 1. Seizure disorder 2. Gait disturbance/Frequent falls at home 3. Chronic kidney disease stage 4 4. Parkinson's disease 5. Type 2 diabetes mellitus 7. Chronic atrial fibrillation/Anticoagulation 8. Profound deafness 9. Hypertension 10. Chronic low back pain Discharge Diagnoses with Status of Each Condition: 1. Seizure disorder---stable 2. Gait disturbance/Frequent falls at home---improved 3. Chronic kidney disease stage 4---Stable 4. Parkinson's disease---Stable 5. Type 2 diabetes mellitus---Stable 7. Chronic atrial fibrillation/Anticoagulation---Stable 8. Profound deafness---stable 9. Hypertension---controlled 10. Chronic low back pain---controlled 11. Gout---Stable - HPI History of Present Illness: This is a 71-yrs-male with a past medical history significant for CKD stage IV, atrial fibrillation, diabetes, HLD, Parkinson disease, HTN, GERD, hard of hearing who present ER for seizure activity. pt is hard hearing, and a poor historian. Pt had twice witnessed seizure activities. When pt was visited by palliative care in the morning, he was noted that he had an approximately 7- minute convulsion shortly after he was waken up from sleeping. Palliative care provider called EMS. Pt was brought to ER for further evaluation. After he was arrival to the emergency department he began to have a generalized tonic-clonic seizure with noted rigidity of the right side, per ER provider report. Then pt developed apneic. Pt was put bag mask then switched to nonrebreather mask, pt remain adequately and spontaneously on his own breath and his saturations of 95 to 100% on room air. CT of head and CXR reveal unremarkable for acute process. ER provider reached [place] neurologist. Neurologist recommended patient is appropriate for observation in our hospital, would not benefit from an EEG at this time, and Keppra is an appropriate antiepileptic with renal dosed. When Writing down question to ask pt, Pt denies chest pain, shortness of breath, fev er, and dysuria. Given above pt's medical conditions, medical team was consulted for admission. Discussed the care goal with pt, pt hope to have DNR/DNI for his code status. - CONSULTS | PROCEDURES Consultations: PT/OT and Procedures: none - HOSPITAL COURSE Hospital Course: Noted for seizure disorder which was witnessed on admission was placed on Keppra and had another seizure and adjuvant therapy was initiated with Depakote. Patient was managed conservatively without any more seizure events after AED treatment. Due to his Parkinson's disease and dementia his confusion was waxing and waning, poor vision and deafness all contributing to his gait disturbance and frequent falls at home mandating a longterm facility. In the meantime patient worked with PT/OT and at times he would be agitated and physical therapy had to visit every other day due to his refusal at times. Patient's chronic kidney disease stage IV with mildly elevated BUN with creatinine was managed conservatively along with hyperphosphatemia for which he was placed on sevelamer for phosphate binding effect. Renal panel was monitored during the time he was receiving treatment for his gout due to his uric acid elevated at 8.6 but have is now down trended. Pharmacy assisted with renal adjustment. Patient's Parkinson's disease with dementia with confusion at baseline without any seizure-like activity noted. His chronic atrial fibrillation with persistent A. fib was managed with anticoagulation on eliquis. revit drafter and social workers were attempting to place patient at long-term care facility since he is not able to live alone. Patient's diabetes was managed with insulin sliding scale given his Lantus was precipitating hypoglycemia and metformin being held given his CKD stage IV. His hypertension was well controlled and his chronic low back pain was also controlled. Patient was [facility] cept[facility] to [facility]. We will continue with medical management, physical therapy, OT, and optimizing medical and nutritional management. - ALLERGIES Allergies/Adverse Reactions: Allergies Allergy/AdvReac Type Severity Reaction Status Date / Time allopurinol Allergy Unknown Verified 12/07/21 20:42 glipizide Allergy Unknown Verified 12/07/21 20:42 metformin Allergy Unknown Verified 12/07/21 20:42 - MEDICATIONS Home Medications: Ambulatory Orders Medication Instructions Recorded Confirmed Omeprazole 20 mg PO BID 10/02/13 12/10/21 Atorvastatin Calcium 40 mg PO QPM 01/24/16 12/10/21 Carbidopa/Levodopa 2 each PO QID 01/05/20 12/10/21 [Carbidopa-Levodopa 25-250 Tab] Rivaroxaban [Xarelto] 15 mg PO QDDINNER 07/23/20 12/10/21 Tamsulosin [Flomax] 0.4 mg PO DAILY #30 cap 09/30/20 12/09/21 Entacapone [Comtan] 200 mg PO BID 04/02/21 12/10/21 Multivit-Min/Folic/Vit K/Lycop 1 each PO DAILY 04/02/21 12/10/21 [One Daily Men's 50 Plus D3 Tab] calcitrioL [Rocaltrol] 0.5 mcg PO DAILY 04/02/21 12/09/21 Insulin Glargine [Lantus Solostar] 8 unit SQ HS 04/23/21 12/10/21 Senna [Senokot] 8.6 mg PO DAILY PRN 04/23/21 12/10/21 Albuterol Sulfate [Proair Hfa 2 puffs INH Q4HR PRN 11/18/21 12/10/21 Inhaler] Fluticasone [Flonase] 2 spray TAWANDA DAILY 11/18/21 12/10/21 diltiaZEM CD [Cardizem Cd] 180 mg PO DAILY 12/09/21 12/10/21 - PHYSICAL EXAM AT DISCHARGE General Appearance: positive: No acute distress, Alert Eyes Bilateral: positive: Normal inspection, PERRL, EOMI ENT: positive: Other (deaf) Neck: positive: Nml inspection, Thyroid nml, No JVD, Trachea midline. negative: Thyromegaly Respiratory: positive: Chest non-tender, No respiratory distress, Breath sounds nml Cardiovascular: positive: No murmur, No gallop, Irregularly irregular Peripheral Pulses: positive: 2+ Abdomen: positive: Non-tender, No organomegaly, Nml bowel sounds Skin: positive: Color nml, No rash, Warm Extremities: positive: Non-tender, Full ROM Neurologic/Psychiatric: positive: Oriented x3, CN's nml (2-12) - LABS Result Diagrams: 01/12/22 05:55 01/22/22 05:29 - DIAGNOSTIC IMAGING Diagnostic Imaging Results: Final report reviewed - FOLLOW UP Follow Up: PCP to follow-up in 2 to 4 weeks. - TIME SPENT Time Spent in Discharge (Minutes): 40"
[2022-01-22] MEDS: ATORVASTATIN 40 MG TABLET PO SCH (20:59)
[2022-01-23] MEDS: SODIUM CHLORIDE FLUSH 0.9% 10 ML SYRINGE IVP SCH ×3 (01:01→17:19)
[2022-01-23] MEDS: CARBIDOPA/LEVODOPA 25 MG/250 MG TABLET PO SCH ×4 (01:05→21:37)
[2022-01-23] MEDS: INSULIN ASPART 300 UNIT/3 ML PEN SUBQ SCH ×4 (08:59→21:37)
[2022-01-23] MEDS: DOCUSATE SODIUM 250 MG CAPSULE PO SCH (09:00)
[2022-01-23] MEDS: ENTACAPONE 200 MG TABLET PO SCH ×2 (09:00→21:37)
[2022-01-23] MEDS: polyethylene glycoL 3350 17 GM PACKET PO SCH (09:00)
[2022-01-23] MEDS: APIXABAN 2.5 MG TABLET PO SCH ×2 (09:07→21:37)
[2022-01-23] MEDS: SEVELAMER 800 MG TABLET PO SCH ×3 (09:07→17:21)
[2022-01-23] MEDS: PANTOPRAZOLE 40 MG TABLET PO SCH (09:07)
[2022-01-23] MEDS: DIVALPROEX ER 250 MG TABLET PO SCH ×2 (09:08→21:37)
[2022-01-23] MEDS: TAMSULOSIN 0.4 MG CAPSULE PO SCH (09:08)
[2022-01-23] MEDS: MULTIVITAMIN TABLET PO SCH (09:08)
[2022-01-23] MEDS: calcitrioL 0.25 MCG CAPSULE PO SCH (09:08)
[2022-01-23] MEDS: diltiaZEM CD 180 MG CAPSULE PO SCH (09:08)
[2022-01-23] MEDS: FLUTICASONE NASAL SPRAY NAS SCH (09:08)
[2022-01-23] MEDS: levETIRAcetam 250 MG TABLET PO SCH ×2 (09:08→21:37)
[2022-01-23] MEDS: ACETAMINOPHEN 325 MG TABLET PO PRN (09:09)
--- NOTE | 2022-01-23 14:07 | PROVIDER PROGRESS NOTE ---
Progress Note Patient with no acute overnight events. Continues on renal adjusted colchicine. Hard of hearing. Does get frustrated with his medical care at times but overall cooperative. O/E: VSS. Afebrile. CV/lungs: RRR. CTA BL Extremities/skin: Tenderness to MCP/DIP bilaterally without warmth and 2+ pulses dorsalis pedis w/ mild bipedal edema. A/P: (1) Gout Impression: Patient with bilateral hand pain and serum uric acid elevated 8.6>8.1 and placed on colchicine 0.3 mg p.o. q3d for 2 weeks. Renal adjustment provided by pharmacy. Unfortunately cannot be on NSAIDs given his CKD stage IV. (2) Confusion Impression: To be at baseline with underlying Parkinson's disease and without worsening confusion or seizure-like activity. (4) Type 2 diabetes mellitus Impression: Medical management (5) Atrial fibrillation Impression: Continue with current medical management Qualifiers: Atrial fibrillation type: longstanding persistent Qualified Code(s): I48.11 - Longstanding persistent atrial fibrillation (6) CKD (chronic kidney disease) stage 4, GFR 15-29 ml/min Impression: Patient with elevated BUN and creatinine but with normal electrolytes. Has hyperphosphatemia has gradually increased but now improved while on sevelamer for phosphate binding effect. Renal panel monitoring given that he is on colchicine. Continue with current medical management (7) Parkinson disease Impression: Continue with current medical management [facility] [place], [place] and will need SNF orders.
[2022-01-23] MEDS: COLCHICINE 0.6 MG TABLET PO SCH (17:21)
[2022-01-23] MEDS: ATORVASTATIN 40 MG TABLET PO SCH (21:37)
[2022-01-24] MEDS: SODIUM CHLORIDE FLUSH 0.9% 10 ML SYRINGE IVP SCH ×3 (00:35→21:01)
[2022-01-24] MEDS: ACETAMINOPHEN/CODEINE 300 MG/30 MG TABLET PO PRN (01:03)
[2022-01-24] MEDS: CARBIDOPA/LEVODOPA 25 MG/250 MG TABLET PO SCH ×4 (01:55→21:00)
--- NOTE | 2022-01-24 08:50 | PROVIDER PROGRESS NOTE ---
Assessment/Plan - Problem List (1) Seizure Assessment/Plan: Continue Keppra 250 mg p.o. twice daily. 2. Frequent falls. He has a history of frequent falls at home and in the past. He has been hospitalized elsewhere for seizures and needed SNF and PT for rehab. Before this admission, he had a ground-level fall before his seizures were witnessed. He continues to need rehab because of parkinsonian gait, bad balance, intermittent confusion, deconditioning, poor vision, and deafness. He has been working with physical therapy and physical therapy recommends discharge to SNF for rehab. From there he will have long-term placement. We have already sent out a DMV form for him to no longer allow drive and he is aware of that. 3. Confusion. This comes and goes. But he has been stable for the last few days. During this hospitalization we attributed to some of that with the new medications including the Depakote, Ativan, and Keppra. 4. Chronic kidney disease That is stable. He has an AV fistula in place for when he needs dialysis. Will start Metformin while here (see #6). His BMP is done intermittently. 5. Parkinson's disease. He is on his home meds. He has a shuffling gait, walks slouched over, toe walks. He is working with physical therapy and slowly, slowly improving. Plan is for discharge to SNF then LTAC, no longer to live alone at home. 6. Diabetes mellitus. A1c is 6.4%. At home he was supposedly taking Lantus 8U qpm. Here Lantus 5 units was causing hypoglycemia so that was discontinued. He is only on sliding scale. Overall he has been getting 1 unit to 2 units before meals once or twice a day. We though about starting metformin but in view of creat 3.8-4, will hold off on that 7. Chronic atrial fibrillation. Rate is controlled and he is on anticoagulation. 8. Profound deafness. We will try and find batteries for him. Otherwise, all communication to him is with writing, but he speaks his responses. 9. Hypertension BP is controlled on his home medications. 10. Chronic low back pain. He was getting Tylenol with codeine but that worsened his confusion so now he is on topical Lidocaine patch. Pain is controlled. 11. GERD. He is stable on Protonix. - Current Meds Current Meds: Current Medications Generic Name Dose Route Start Last Admin Trade Name Jay PRN Reason Stop Dose Admin Acetaminophen 650 mg 12/09/21 15:00 01/23/22 09:09 Acetaminophen 325 Mg Tablet PO 650 mg Q4HR PRN Administration Pain 1 to 4, or Fever Acetaminophen/Codeine Phosphate 0.5 tab 01/06/22 18:15 01/24/22 01:03 Acetaminophen/Codeine 300 Mg/30 Mg Tablet PO 0.5 tab BID PRN Administration Severe Pain Apixaban 2.5 mg 12/12/21 21:00 01/23/22 21:37 Apixaban 2.5 Mg Tablet PO 2.5 mg BID PEREZ Administration Atorvastatin Calcium 40 mg 12/10/21 21:00 01/23/22 21:37 Atorvastatin 40 Mg Tablet PO 40 mg QPM PEREZ Administration Calcitriol 0.5 mcg 12/11/21 09:00 01/23/22 09:08 Calcitriol 0.25 Mcg Capsule PO 0.5 mcg DAILY PEREZ Administration Carbidopa/Levodopa 2 tab 12/10/21 15:00 01/24/22 01:55 Carbidopa/Levodopa 25 Mg/250 Mg Tablet PO 2 tab 0200,0800,1400,2000 PEREZ Administration Colchicine 0.3 mg 01/17/22 17:00 01/23/22 17:21 Colchicine 0.6 Mg Tablet PO 0.3 mg Q3D PEREZ Administration Diltiazem HCl 180 mg 12/11/21 09:00 01/23/22 09:08 Diltiazem Cd 180 Mg Capsule PO 180 mg DAILY PEREZ Administration Divalproex Sodium 500 mg 12/13/21 09:00 01/23/22 21:37 Divalproex Er 250 Mg Tablet PO 500 mg BID PEREZ Administration Docusate Sodium 250 - 500 mg 01/20/22 09:00 01/23/22 09:00 Docusate Sodium 250 Mg Capsule PO Not Given DAILY PEREZ Entacapone 200 mg 12/10/21 21:00 01/23/22 21:37 Entacapone 200 Mg Tablet PO Not Given BID PEREZ Fluticasone Propionate 1 sprays 12/11/21 09:00 01/23/22 09:08 Fluticasone Nasal Miller TAWANDA 1 spr DAILY PEREZ Administration Insulin Aspart 1 - 5 unit 12/09/21 17:00 01/23/22 21:37 Insulin Aspart 300 Unit/3 Ml Pen SUBQ 2 unit 0800,1200,1700,2100 PEREZ Administration Protocol Levetiracetam 250 mg 12/30/21 22:27 01/23/22 21:37 Levetiracetam 250 Mg Tablet PO 250 mg QPM PEREZ Administration Levetiracetam 250 mg 01/01/22 09:00 01/23/22 09:08 Levetiracetam 250 Mg Tablet PO 250 mg DAILY PEREZ Administration Lidocaine 1 patch 12/12/21 14:19 01/18/22 08:03 Lidocaine Patch 5% TOP 1 patch DAILY PRN Administration PAIN Multi-Ingredient Ointment 1 applic 01/21/22 21:40 01/21/22 21:59 Zinc Oxide 20% Oint 30 Gm Tube TOP 1 applic PRN PRN Administration Skin Care Multivitamins 1 tab 12/11/21 08:00 01/23/22 09:08 Multivitamin Tablet PO 1 tab DAILYWM PEREZ Administration Pantoprazole Sodium 40 mg 01/21/22 12:00 01/23/22 09:07 Pantoprazole 40 Mg Tablet PO 40 mg DAILY PEREZ Administration Polyethylene Glycol 17 gm 12/17/21 09:00 01/23/22 09:00 Polyethylene Glycol 3350 17 Gm Packet PO Not Given DAILY PEREZ Senna 8.6 mg 12/10/21 14:29 01/16/22 08:28 Senna 8.6 Mg Tablet PO 8.6 mg DAILY PRN Administration Constipation Sevelamer HCl 800 mg 01/20/22 08:00 01/23/22 17:21 Sevelamer 800 Mg Tablet PO 800 mg TIDWM PEREZ Administration Sodium Chloride 10 ml 01/13/22 17:00 01/24/22 00:35 Sodium Chloride Flush 0.9% 10 Ml Syringe IVP Not Given 0100,0900,1700 PEREZ Tamsulosin HCl 0.4 mg 12/11/21 09:00 01/23/22 09:08 Tamsulosin 0.4 Mg Capsule PO 0.4 mg DAILY PEREZ Administration - Lab Result Fish Bone Diagrams: 01/12/22 05:55 01/22/22 05:29 Subjective - Subjective Patient Reports: Other (He was resting comfortably in the bedside chair at time of exam. He denied any complaints.) Objective Vital Signs: Vital Signs - 24 hr 01/23/22 01/23/2201/23/22 14:00 16:59 23:55 Temperature 36.4 C L 36.5 C Heart Rate [ 87 65 76 Brachial] Respiratory 18 14 18 Rate Blood Pressure 101/79 137/75 H [Left Brachial artery] Blood Pressure 149/76 H [Left Radial artery] O2 Saturation 97 96 98 01/24/22 07:40 Temperature 36.4 C L Heart Rate [ 83 Brachial] Respiratory 16 Rate Blood Pressure 128/66 [Left Brachial artery] Blood Pressure [Left Radial artery] O2 Saturation 100 Oxygen O2 Source Room air I&O (Last 24 Hrs): Intake and Output Totals x24h 01/22/22 01/23/22 01/24/22 23:59 23:59 23:59 Intake Total 1060 1500 630 Output Total 625 500 Balance 1060 875 130 General: Alert, Oriented x3, No acute distress HEENT: PERRLA, EOMI Neck: Supple, No JVD Neuro: Alert, Oriented Times 3 Cardiovascular: Regular rate, No murmurs Respiratory: Chest non-tender, No respiratory distress, Breath sounds nml Abdomen: Normal bowel sounds, Soft, No tenderness, No masses Extremities: No clubbing, No cyanosis, No edema, No tenderness/swelling Skin: No breakdown - Results Results: Laboratory Results WBC 5.4 x10^3/uL (4.8-10.8) 01/12/22 05:55 RBC 3.11 10^6/uL (4.70-6.10) L 01/12/22 05:55 Hgb 9.6 g/dL (14.0-18.0) L 01/12/22 05:55 Hct 29.1 % (42.0-52.0) L 01/12/22 05:55 MCV 93.6 fL (80.0-94.0) 01/12/22 05:55 MCH 30.9 pg (27.0-31.0) 01/12/22 05:55 MCHC 33.0 g/dL (32.0-36.0) 01/12/22 05:55 RDW 15.3 % (12.0-15.0) H 01/12/22 05:55 Plt Count 170 10^3/uL (130-450) 01/12/22 05:55 MPV 12.0 fL (7.4-11.4) H 01/12/22 05:55 Neut # (Auto) 3.4 10^3/uL (1.5-6.6) 01/12/22 05:55 Lymph # (Auto) 1.2 10^3/uL (1.5-3.5) L 01/12/22 05:55 Tompkins # (Auto) 0.6 10^3/uL (0.0-1.0) 01/12/22 05:55 Eos # (Auto) 0.1 10^3/uL (0.0-0.7) 01/12/22 05:55 Baso # (Auto) 0.0 10^3/uL (0.0-0.1) 01/12/22 05:55 Absolute Nucleated RBC 0.00 x10^3/uL 01/12/22 05:55 Nucleated RBC % 0.0 /100WBC 01/12/22 05:55 APTT 28.1 secs (24.9-33.3) 12/10/21 09:50 Sodium 139 mmol/L (135-145) 01/22/22 05:29 Potassium 4.5 mmol/L (3.5-5.0) 01/22/22 05:29 Chloride 107 mmol/L (101-111) 01/22/22 05:29 Carbon Dioxide 20 mmol/L (21-32) L 01/22/22 05:29 Anion Gap 12.0 (6-13) 01/22/22 05:29 BUN 74 mg/dL (6-20) H 01/22/22 05:29 Creatinine 4.5 mg/dL (0.6-1.2) H 01/22/22 05:29 Estimated GFR (MDRD) 13 (>89) L 01/22/22 05:29 Glucose 112 mg/dL (70-100) H 01/22/22 05:29 POC Whole Bld Glucose 116 mg/dL (70 - 100) H 01/24/22 07:31 Estimat Average Glucose 137 mg/dL (70-100) H 12/10/21 04:35 Hemoglobin A1c % 6.4 % (4.27-6.07) H 12/10/21 04:35 Uric Acid 8.1 mg/dL (2.6-7.2) H 01/22/22 05:29 Calcium 9.3 mg/dL (8.5-10.3) 01/22/22 05:29 Phosphorus 6.0 mg/dL (2.5-4.6) H 01/22/22 05:29 Magnesium 1.8 mg/dL (1.7-2.8) 12/21/21 17:27 Total Bilirubin 1.8 mg/dL (0.2-1.0) H 12/09/21 12:56 AST 13 IU/L (10-42) 12/09/21 12:56 ALT < 10 IU/L (10-60) L 12/09/21 12:56 Alkaline Phosphatase 60 IU/L (42-121) 12/09/21 12:56 Total Creatine Kinase 51 IU/L (22-269) 12/09/21 12:56 Troponin I High Sens 33.5 ng/L (2.3-19.7) H* 12/09/21 19:01 Total Protein 7.4 g/dL (6.7-8.2) 12/09/21 12:56 Albumin 3.4 g/dL (3.2-5.5) 01/22/22 05:29 Globulin 3.3 g/dL (2.1-4.2) 12/09/21 12:56 Albumin/Globulin Ratio 1.2 (1.0-2.2) 12/09/21 12:56 Lipase 35 U/L (22-51) 12/09/21 12:56 Urine Color YELLOW 01/13/22 12:30 Urine Clarity CLEAR (CLEAR) 01/13/22 12:30 Urine pH 5.5 PH (5.0-7.5) 01/13/22 12:30 Ur Specific Clayton 1.020 (1.002-1.030) 01/13/22 12:30 Urine Protein 100 mg/dL (NEGATIVE) H 01/13/22 12:30 Urine Glucose (UA) NEGATIVE mg/dL (NEGATIVE) 01/13/22 12:30 Urine Ketones NEGATIVE mg/dL (NEGATIVE) 01/13/22 12:30 Urine Occult Blood NEGATIVE (NEGATIVE) 01/13/22 12:30 Urine Nitrite NEGATIVE (NEGATIVE) 01/13/22 12:30 Urine Bilirubin NEGATIVE (NEGATIVE) 01/13/22 12:30 Urine Urobilinogen 0.2 (NORMAL) E.U./dL (NORMAL) 01/13/22 12:30 Ur Leukocyte Esterase NEGATIVE (NEGATIVE) 01/13/22 12:30 Urine RBC 0-5 /HPF (0-5) 01/13/22 12:30 Urine WBC 0-3 /HPF (0-3) 01/13/22 12:30 Ur Squamous Epith Cells FEW Squamous (<= Few) 01/13/22 12:30 Urine Bacteria None Seen /HPF (None Seen) 01/13/22 12:30 Urine Casts 3-5 Granular Casts /LPF 12/09/21 13:59 Ur Microscopic Review INDICATED 12/09/21 13:59 Urine Culture Comments NOT INDICATED 01/13/22 12:30 Nasal Adenovirus (PCR) NOT DETECTED 12/09/21 13:59 Nasal B. parapertussis DNA (PCR) NOT DETECTED 12/09/21 13:59 Nasal Coronavir 229E PCR NOT DETECTED 12/09/21 13:59 Nasal Coronavir HKU1 PCR NOT DETECTED 12/09/21 13:59 Nasal Coronavir NL63 PCR NOT DETECTED 12/09/21 13:59 Nasal Coronavir OC43 PCR NOT DETECTED 12/09/21 13:59 Nasal Enterovir/Rhinovir PCR NOT DETECTED 12/09/21 13:59 Nasal Influenza B PCR NOT DETECTED 12/09/21 13:59 Nasal Influenza A PCR NOT DETECTED 12/09/21 13:59 Nasal Parainfluen 1 PCR NOT DETECTED 12/09/21 13:59 Nasal Parainfluen 2 PCR NOT DETECTED 12/09/21 13:59 Nasal Parainfluen 3 PCR NOT DETECTED 12/09/21 13:59 Nasal Parainfluen 4 PCR NOT DETECTED 12/09/21 13:59 Nasal RSV (PCR) NOT DETECTED 12/09/21 13:59 Nasal B.pertussis DNA PCR NOT DETECTED 12/09/21 13:59 Nasal C.pneumoniae (PCR) NOT DETECTED 12/09/21 13:59 Tawanda Human Metapneumo PCR NOT DETECTED 12/09/21 13:59 Nasal M.pneumoniae (PCR) NOT DETECTED 12/09/21 13:59 Nasal SARS-CoV-2 (PCR) NOT DETECTED 12/09/21 13:59 Last Dose Date Not Reportable 12/20/21 12:00 Last Dose Time Not Reportable 12/20/21 12:00 Urine Opiates Screen NEGATIVE (NEGATIVE) 12/09/21 13:59 Ur Oxycodone Screen NEGATIVE (NEGATIVE) 12/09/21 13:59 Urine Methadone Screen NEGATIVE (NEGATIVE) 12/09/21 13:59 Ur Propoxyphene Screen NEGATIVE (NEGATIVE) 12/09/21 13:59 Ur Barbiturates Screen NEGATIVE (NEGATIVE) 12/09/21 13:59 Valproic Acid 31.0 ug/mL 12/20/21 12:00 Ur Tricyclics Screen NEGATIVE (NEGATIVE) 12/09/21 13:59 Levetiracetam 20.5 ug/mL (10.0-40.0) 12/20/21 12:00 Ur Phencyclidine Scrn NEGATIVE (NEGATIVE) 12/09/21 13:59 Ur Amphetamine Screen NEGATIVE (NEGATIVE) 12/09/21 13:59 U Methamphetamines Scrn NEGATIVE (NEGATIVE) 12/09/21 13:59 U Benzodiazepines Scrn NEGATIVE (NEGATIVE) 12/09/21 13:59 Urine Cocaine Screen NEGATIVE (NEGATIVE) 12/09/21 13:59 U Cannabinoids Screen NEGATIVE (NEGATIVE) 12/09/21 13:59 SARS-CoV-2 (PCR) NOT DETECTED 01/22/22 10:55 - Procedures Procedures: Procedures VENOUS CATHETERIZATION NEC (04/17/14)
[2022-01-24] MEDS: polyethylene glycoL 3350 17 GM PACKET PO SCH (10:18)
[2022-01-24] MEDS: calcitrioL 0.25 MCG CAPSULE PO SCH (10:19)
[2022-01-24] MEDS: TAMSULOSIN 0.4 MG CAPSULE PO SCH (10:19)
[2022-01-24] MEDS: DOCUSATE SODIUM 250 MG CAPSULE PO SCH (10:19)
[2022-01-24] MEDS: MULTIVITAMIN TABLET PO SCH (10:20)
[2022-01-24] MEDS: PANTOPRAZOLE 40 MG TABLET PO SCH (10:20)
[2022-01-24] MEDS: DIVALPROEX ER 250 MG TABLET PO SCH ×2 (10:20→21:00)
[2022-01-24] MEDS: APIXABAN 2.5 MG TABLET PO SCH ×2 (10:20→21:00)
[2022-01-24] MEDS: levETIRAcetam 250 MG TABLET PO SCH ×2 (10:21→21:00)
[2022-01-24] MEDS: diltiaZEM CD 180 MG CAPSULE PO SCH (10:21)
[2022-01-24] MEDS: SEVELAMER 800 MG TABLET PO SCH ×3 (10:22→17:45)
[2022-01-24] MEDS: INSULIN ASPART 300 UNIT/3 ML PEN SUBQ SCH ×4 (10:22→21:01)
[2022-01-24] MEDS: ENTACAPONE 200 MG TABLET PO SCH ×2 (10:22→21:01)
[2022-01-24] MEDS: FLUTICASONE NASAL SPRAY NAS SCH (10:24)
--- NOTE | 2022-01-24 15:30 | DISCHARGE SUMMARY ---
Discharge Summary Admit Date: 12/09/21 Discharge Date: 01/24/22 Discharging Provider: Pari Mayo Primary Care Provider: Vitor Erickson Code Status: Do Not Attempt Resuscitation Condition at Discharge: Good Discharge Facility Name: [facility] [place], [place] - DIAGNOSES Admission Diagnoses: 1. Seizure disorder 2. Gait disturbance/Frequent falls at home 3. Chronic kidney disease stage 4 4. Parkinson's disease 5. Type 2 diabetes mellitus 7. Chronic atrial fibrillation/Anticoagulation 8. Profound deafness 9. Hypertension 10. Chronic low back pain Discharge Diagnoses with Status of Each Condition: 1. Seizure disorder---stable 2. Gait disturbance/Frequent falls at home---improved 3. Chronic kidney disease stage 4---Stable 4. Parkinson's disease---Stable 5. Type 2 diabetes mellitus---Stable 7. Chronic atrial fibrillation/Anticoagulation---Stable 8. Profound deafness---stable 9. Hypertension---controlled 10. Chronic low back pain---controlled 11. Gout---Stable - HPI History of Present Illness: This is a 71-yrs-male with a past medical history significant for CKD stage IV, atrial fibrillation, diabetes, HLD, Parkinson disease, HTN, GERD, hard of hearing who present ER for seizure activity. pt is hard hearing, and a poor historian. Pt had twice witnessed seizure activities. When pt was visited by palliative care in the morning, he was noted that he had an approximately 7- minute convulsion shortly after he was waken up from sleeping. Palliative care provider called EMS. Pt was brought to ER for further evaluation. After he was arrival to the emergency department he began to have a generalized tonic-clonic seizure with noted rigidity of the right side, per ER provider report. Then pt developed apneic. Pt was put bag mask then switched to nonrebreather mask, pt remain adequately and spontaneously on his own breath and his saturations of 95 to 100% on room air. CT of head and CXR reveal unremarkable for acute process. ER provider reached [place] neurologist. Neurologist recommended patient is appropriate for observation in our hospital, would not benefit from an EEG at this time, and Keppra is an appropriate antiepileptic with renal dosed. When Writing down question to ask pt, Pt denies chest pain, shortness of breath, f ever, and dysuria. Given above pt's medical conditions, medical team was consulted for admission. Discussed the care goal with pt, pt hope to have DNR/DNI for his code status. - HOSPITAL COURSE Hospital Course: Noted for seizure disorder which was witnessed on admission was placed on Keppra and had another seizure and adjuvant therapy was initiated with Depakote. Patient was managed conservatively without any more seizure events after AED treatment. Due to his Parkinson's disease and dementia his confusion was waxing and waning, poor vision and deafness all contributing to his gait disturbance and frequent falls at home mandating a longterm facility. In the meantime patient worked with PT/OT and at times he would be agitated and physical therapy had to visit every other day due to his refusal at times. Patient's chronic kidney disease stage IV with mildly elevated BUN with creatinine was managed conservatively along with hyperphosphatemia for which he was placed on sevelamer for phosphate binding effect. Renal panel was monitored during the time he was receiving treatment for his gout due to his uric acid elevated at 8.6 but have is now down trended. Pharmacy assisted with renal adjustment. Patient's Parkinson's disease with dementia with confusion at baseline without any seizure-like activity noted. His chronic atrial fi brillation with persistent A. fib was managed with anticoagulation on eliquis. [facility] [place] and social workers were attempting to place patient at long-term care facility since he is not able to live alone. Patient's diabetes was managed with insulin sliding scale given his Lantus was precipitating hypoglycemia and metformin being held given his CKD stage IV. His hypertension was well controlled and his chronic low back pain was also controlled. [facility]. We will continue with medical management, physical therapy, OT, and optimizing medical and nutritional management. - ALLERGIES Allergies/Adverse Reactions: Allergies Allergy/AdvReac Type Severity Reaction Status Date / Time allopurinol Allergy Unknown Verified 12/07/21 20:42 glipizide Allergy Unknown Verified 12/07/21 20:42 metformin Allergy Unknown Verified 12/07/21 20:42 - MEDICATIONS Home Medications: Ambulatory Orders Medication Instructions Recorded Confirmed Omeprazole 20 mg PO BID 10/02/13 12/10/21 Atorvastatin Calcium 40 mg PO QPM 01/24/16 12/10/21 Carbidopa/Levodopa 2 each PO QID 01/05/20 12/10/21 [Carbidopa-Levodopa 25-250 Tab] Rivaroxaban [Xarelto] 15 mg PO QDDINNER 07/23/20 12/10/21 Tamsulosin [Flomax] 0.4 mg PO DAILY #30 cap 09/30/20 12/09/21 Entacapone [Comtan] 200 mg PO BID 04/02/21 12/10/21 Multivit-Min/Folic/Vit K/Lycop 1 each PO DAILY 04/02/21 12/10/21 [One Daily Men's 50 Plus D3 Tab] calcitrioL [Rocaltrol] 0.5 mcg PO DAILY 04/02/21 12/09/21 Insulin Glargine [Lantus Solostar] 8 unit SQ HS 04/23/21 12/10/21 Senna [Senokot] 8.6 mg PO DAILY PRN 04/23/21 12/10/21 Albuterol Sulfate [Proair Hfa 2 puffs INH Q4HR PRN 11/18/21 12/10/21 Inhaler] Fluticasone [Flonase] 2 spray TAWANDA DAILY 11/18/21 12/10/21 diltiaZEM CD [Cardizem Cd] 180 mg PO DAILY 12/09/21 12/10/21 - PHYSICAL EXAM AT DISCHARGE General Appearance: positive: No acute distress, Alert Eyes Bilateral: positive: PERRL, EOMI ENT: positive: No signs of dehydration Neck: positive: No JVD, Trachea midline Respiratory: positive: Chest non-tender, No respiratory distress, Breath sounds nml. negative: Wheezes, Rales, Rhonchi Cardiovascular: positive: Irregularly irregular Abdomen: positive: Non-tender, No organomegaly, Nml bowel sounds, No distention Back: positive: Nml inspection Skin: positive: Color nml, No rash, Warm Extremities: positive: Non-tender, Full ROM, No pedal edema Neurologic/Psychiatric: positive: Oriented x3, CN's nml (2-12) - LABS Result Diagrams: 01/12/22 05:55 01/22/22 05:29 - TIME SPENT Time Spent in Discharge (Minutes): 20
[2022-01-24] MEDS: ACETAMINOPHEN 325 MG TABLET PO PRN (17:44)
[2022-01-24] MEDS: ATORVASTATIN 40 MG TABLET PO SCH (21:00)
[2022-01-25] MEDS: CARBIDOPA/LEVODOPA 25 MG/250 MG TABLET PO SCH ×2 (01:42→07:37)
--- NOTE | 2022-01-25 07:33 | Discharge Plan ---
"Discharge Plan for SNF / [facility] - Discharge Plan And Transition Orders Problem Reviewed?: Yes Disposition: 03 SNF DC/Xfer Condition: Good Allergies and Adverse Reactions: Allergies Allergy/AdvReac Type Severity Reaction Status Date / Time allopurinol Allergy Unknown Verified 12/07/21 20:42 glipizide Allergy Unknown Verified 12/07/21 20:42 metformin Allergy Unknown Verified 12/07/21 20:42 - SNF / [facility] Transition Orders Admit to (Facility): [facility] in [place], [place] Discharge Diagnosis: 1. Seizure disorder---stable 2. Gait disturbance/Frequent falls at home---improved 3. Chronic kidney disease stage 4---Stable 4. Parkinson's disease---Stable 5. Type 2 diabetes mellitus---Stable 7. Chronic atrial fibrillation/Anticoagulation---Stable 8. Profound deafness---stable 9. Hypertension---controlled 10. Chronic low back pain---controlled 11. Gout---Stable Medicare Certification Statement: I certify that [facility] care is medically necessary on a continuing basis for any of the conditions for which she/he is receiving care during hospitalization. Notify PCP of admission and forward orders to primary provider for signature. Weight on admission and: Daily Call PCP immediately if weight increases by: 2.3 kg Other Notification Orders: Call PCP immediately if patient develops dyspnea, chest pain/tightness or edema. House Bowel Program: Yes Additional Bowel Program Orders: If no BM after 2 days, nurse may give M.O.M. 30ml PO PRN and/or ducolax Supp 1 ND and/or VEGA 250mg P.O., and/or senna 1-2 tabs PO. On day 3 nurse may give repeat above order until residents constipation is resolved. Medication Orders: PLEASE REFER TO THE DISCHARGE MEDICATION LIST. - Diet Type: Geriatric Texture: Regular May have monthly special meal: Yes - Therapies | Activity Therapy: Evaluation | Treat if indicated: PT, OT Rehabilitation Potential: Maximize functional status Activity: Activity as Tolerated Weight Bearing: Full Weight Assistance Devices: Walker Follow Up: With primary care physician as needed"
[2022-01-25] MEDS: DOCUSATE SODIUM 250 MG CAPSULE PO SCH (07:36)
[2022-01-25] MEDS: DIVALPROEX ER 250 MG TABLET PO SCH (07:36)
[2022-01-25] MEDS: polyethylene glycoL 3350 17 GM PACKET PO SCH (07:36)
[2022-01-25] MEDS: calcitrioL 0.25 MCG CAPSULE PO SCH (07:37)
[2022-01-25] MEDS: diltiaZEM CD 180 MG CAPSULE PO SCH (07:37)
[2022-01-25] MEDS: TAMSULOSIN 0.4 MG CAPSULE PO SCH (07:37)
[2022-01-25] MEDS: APIXABAN 2.5 MG TABLET PO SCH (07:38)
[2022-01-25] MEDS: PANTOPRAZOLE 40 MG TABLET PO SCH (07:38)
[2022-01-25 07:39] VITALS: BP 159/90
[2022-01-25] MEDS: SEVELAMER 800 MG TABLET PO SCH (07:39)
[2022-01-25] MEDS: levETIRAcetam 250 MG TABLET PO SCH (07:39)
[2022-01-25] MEDS: MULTIVITAMIN TABLET PO SCH (07:41)
[2022-01-25] MEDS: INSULIN ASPART 300 UNIT/3 ML PEN SUBQ SCH (07:41)
[2022-01-25] MEDS: ENTACAPONE 200 MG TABLET PO SCH (07:42)
[2022-01-25] MEDS: SODIUM CHLORIDE FLUSH 0.9% 10 ML SYRINGE IVP SCH ×2 (07:43)
[2022-01-25] MEDS: FLUTICASONE NASAL SPRAY NAS SCH (07:43)
== END 2022-01-25 09:45 | DRG 101 ==
LOC: EDUNIT# → ED 12:42 → MS2 15:01 → OBSVTOIN 12-10 09:34
PROVIDERS: ADMIT Nurse Practitioner Gerontology; ATTEND Internal Medicine
DX: G40.409 Other generalized epilepsy and epileptic syndromes, not intractable, without status epilepticus (principal); N18.4 Chronic kidney disease, stage 4 (severe); I48.19 Other persistent atrial fibrillation; I47.2 Ventricular tachycardia; I48.11 Longstanding persistent atrial fibrillation; R26.89 Other abnormalities of gait and mobility; G20 Parkinson's disease; E11.22 Type 2 diabetes mellitus with diabetic chronic kidney disease; H91.90 Unspecified hearing loss, unspecified ear; I12.9 Hypertensive chronic kidney disease with stage 1 through stage 4 chronic kidney disease, or unspecified chronic kidney disease; G89.29 Other chronic pain; M54.50 Low back pain, unspecified; M10.9 Gout, unspecified; E78.5 Hyperlipidemia, unspecified; K21.9 Gastro-esophageal reflux disease without esophagitis; F03.90 Unspecified dementia, unspecified severity, without behavioral disturbance, psychotic disturbance, mood disturbance, and anxiety; E83.39 Other disorders of phosphorus metabolism; G47.30 Sleep apnea, unspecified; M19.90 Unspecified osteoarthritis, unspecified site; F43.10 Post-traumatic stress disorder, unspecified; E11.649 Type 2 diabetes mellitus with hypoglycemia without coma; T38.3X5A Adverse effect of insulin and oral hypoglycemic [antidiabetic] drugs, initial encounter; Z20.822 Contact with and (suspected) exposure to COVID-19; Z66 Do not resuscitate; Z71.3 Dietary counseling and surveillance; Z75.1 Person awaiting admission to adequate facility elsewhere; Z79.01 Long term (current) use of anticoagulants; Z79.4 Long term (current) use of insulin; Z79.899 Other long term (current) drug therapy; Z85.46 Personal history of malignant neoplasm of prostate; Z86.73 Personal history of transient ischemic attack (TIA), and cerebral infarction without residual deficits; Z90.49 Acquired absence of other specified parts of digestive tract; Z91.81 History of falling; Z97.4 Presence of external hearing-aid
CPT/HCPCS: 36415; 51701; 51702; 70450; 71045; 80048; 80053; 80069; 80164; 80177; 80306; 81001; 82550; 83036; 83690; 83735; 84100; 84484; 84550; 85025; 85730; 87040; 87633; 87635; 93005; 96365; 96366; 96372; 96375; 97110; 97112; 97116; 97163; 97165; 97530; 97535; 99233; 99285; A9270; J1815; J2060; J7120; 81003; 87086